=== PATIENT | female | born 1950 | race Caucasian/White ===

== ENCOUNTER → 2018-01-10 10:10 | Outpatient (CLI) | payer MEDICARE, SELFPAY ==
--- NOTE | 2018-01-10 10:17 | BI_ITS ---
MAMMOGRAPHY - BILATERAL SCREENING REASON FOR EXAM: Female, 67 years old. Routine annual screening examination. PERTINENT HISTORY: Non-contributory. TECHNIQUE: Digital bilateral breast vicky (3D mammographic acquisition) in the CC and MLO projections. 2-D mediolateral oblique (MLO) and craniocaudad (CC) views of both breasts were obtained. CAD: Full Field Digital Mammography with Computer Added Detection was performed. COMPARISON: Comparison is made with prior study dated January 03, 2017 and January 03, 2016. FINDINGS: Breast Composition: The breasts are almost entirely fatty. There are no dominant masses or suspicious calcifications. Stable small bilateral axillary lymph nodes. No other significant abnormalities are identified. There has been no significant change since the prior study. BI/SCREENING MAMM (CAD), BILAT IMPRESSION: Stable bilateral screening mammogram. Yearly follow-up mammogram recommended. (A) ASSESSMENT CATEGORY: BIRADS Category 2: Benign. A letter regarding these results will be sent to the patient by the facility within 30 days. Approximately 10% of breast cancers are not detected by mammography. A normal mammogram should not delay biopsy of a clinically suspicious abnormality. [id number] Electronically Signed: Pedro Luis Cuadra MD at 13:31 EST Tel [phone], Service support ,
--- NOTE | 2018-01-10 10:27 | BD_ITS ---
STUDY: DUAL ENERGY X-RAY ABSORPTIOMETRY / DXA REASON FOR EXAM: Female, 67 years old. Early menopause. Loss of height. TECHNIQUE: Bone Mineral Density (BMD) measurements of lumbar spine and bilateral hips were obtained. COMPARISON: None. FINDINGS: Lumbar Spine (L1-L4): g/cm2 (1.031) / T-score (-1.1) / Z-score (0.5) Findings are suggestive of osteopenia with a low fracture risk. Left Femur Total: g/cm2 (0.847) / T-score (-1.3) / Z-score (0.1) Left Femoral Neck: g/cm2 (0.852) / T-score (-1.3) / Z-score (0.3) Right Femur Total: g/cm2 (0.823) / T-score (-1.5) / Z-score (-0.1) Right Femoral Neck: g/cm2 (0.850) / T-score (-1.4) / Z-score (0.3) BD/Dexa Bone Density Study IMPRESSION: The patient is considered osteopenic as outlined below according to World Abhilash Organization (WHO) criteria with a moderate fracture risk. Reference Information: The T-score is the number of standard deviations above or below the standard which is normal for young adults at their peak bone mineral density. The World Health Organization (WHO) interprets the T-scores as follows: Above -1 Normal bone density Between -1 and -2.5 Osteopenia Equal to / or below -2.5 Osteoporosis As a practical clinical guideline, osteopenia may be graded as follows: Mild -1 through -1.5 Moderate -1.6 through -2.0 Severe -2.1 through -2.4 The Z-score is the number of standard deviations above or below age-matched controls. A Z-score of less than -1.5 would be considered abnormal. References: 1. NIH Osteoporosis and Related Bone Diseases http://www.osteo.org 2. International Society for Clinical Densitometry http://www.iscd.org 3. National Osteoporosis Foundation http://www.nof.org Electronically Signed: Pedro Luis Cuadra MD at 9:07 EST Tel [phone], Service support ,
== END ==
PROVIDERS: Visit Provider Obstetrics & Gynecology
DX: Z12.31 Encounter for screening mammogram for malignant neoplasm of breast (principal); M81.0 Age-related osteoporosis without current pathological fracture
CPT/HCPCS: 77063; 77067; 77080

== ENCOUNTER 2018-02-20 20:18 | Emergency (ER) | payer MEDICARE, SELFPAY ==
[2018-02-20 20:20] VITALS: BP 157/85; PULSE 96; RESP 16; TEMP 36.6; O2SAT 98; BMI 29.1
--- NOTE | 2018-02-20 20:39 | RAD_ITS ---
STUDY: X-RAY - LEFT KNEE REASON FOR EXAM: Female, 67 years old. Trauma TECHNIQUE: 4 view(s) of the knee. COMPARISON: None. FINDINGS: There are status post hemiarthroplasty changes of the medial knee compartment. There is no evidence of implant loosening or new associated fracture or dislocation. The lateral and patellofemoral compartments appear within normal limits. There is chondrocalcinosis of the lateral meniscal cartilage. RAD/Knee 4 or More Views IMPRESSION: Status post hemiarthroplasty changes of the medial knee compartment. There is no evidence of implant loosening or new associated fracture or dislocation. There is chondrocalcinosis of the lateral meniscal cartilage. Electronically Signed: Efe Calderon MD at 20:50 EST , Service support ,
[2018-02-20 21:19] VITALS: BP 137/79; PULSE 75; RESP 16; O2SAT 98
[2018-02-20] MEDS: Diphth,Pertuss(Acell),Tet Vac 0.5 ML Vial IM (21:20)
[2018-02-20] MEDS: Lidocaine/Epi/Tetracaine 50 ML 1 APPLIC TOPICAL (21:22)
--- NOTE | 2018-02-20 21:29 | RAD_ITS ---
STUDY: X-RAY - LEFT WRIST REASON FOR EXAM: Female, 67 years old. Trauma TECHNIQUE: 3 view(s) of the wrist were obtained. COMPARISON: None. FINDINGS: Normal visualized distal radius and ulna. Normal radiocarpal articulation. Normal distal radioulnar articulation. Normal carpal bones. Normal carpal articulations. There is degenerative arthrosis of the carpometacarpal articulation of the thumb. Normal second through fifth carpometacarpal articulations. Normal visualized metacarpal bones. The soft tissue structures are unremarkable. RAD/Wrist min 3 Views IMPRESSION: Degenerative changes of the first metacarpal greater multangular joint. There is no evidence of fracture or dislocation. Electronically Signed: Efe Calderon MD at 22:03 EST , Service support ,
--- NOTE | 2018-02-20 21:35 | RAD_ITS ---
STUDY: X-RAY - LEFT HAND REASON FOR EXAM: Female, 67 years old. Trauma TECHNIQUE: 3 view(s) of the hand. COMPARISON: None. FINDINGS: Normal radiocarpal articulation. Normal distal radioulnar joint. Normal visualized carpal bones. Normal carpal articulations There is degenerative arthrosis of the carpometacarpal (CMC) articulation of the thumb. Normal second through fifth carpometacarpal joints. Normal metacarpi. Normal metacarpophalangeal joint of the thumb. Normal interphalangeal joint of the thumb. Normal proximal and distal phalanges of the thumb. Normal metacarpophalangeal joints of the second through fifth fingers. Normal proximal and distal interphalangeal joints of the second through fifth fingers. Normal phalanges of the second through fifth fingers. There is soft tissue swelling over the fifth metacarpophalangeal joint. RAD/Hand Min 3 Views IMPRESSION: There is no evidence of fracture or dislocation. There are degenerative changes of the first metacarpal greater multangular joint. There is soft tissue swelling over the fifth metacarpophalangeal joint. Electronically Signed: Efe Calderon MD at 22:02 EST , Service support ,
--- NOTE | 2018-02-20 23:26 | ED.DEP ---
ED Disposition - Plan for ED Patient: Chief Complaint: Fall Instructions: ED Mechanical Fall, ED Laceration All Referrals: Miguel Lawton MD [Primary Care Provider] -
--- NOTE | 2018-02-20 23:30 | ED.DCSUM_ITS ---
- ER Visit Summary Date of Service: 02/20/18 Chief Complaint: Fall History of Present Illness: The patient is a 67 F presenting after fall. Patient states she rolled her left ankle and fell directly on her left knee. She then hit her chin. She complains of left hand, left knee pain and chin laceration. She is not on blood thinners. She had no loss of consciousness. She was able to ambulate after the fall. She denies other complaints. Last tetanus is unknown. Physical Examination: Vitals are stable. Patient is afebrile. Alert no acute distress. HEENT exam 1.5 cm chin laceration Neck is nontender Lungs are clear and equal bilaterally. Heart is regular rate and rhythm. Abdomen is soft nontender nondistended. Extremities left hand ecchymosis, left anterior knee tenderness. Active full range of motion. Skin is warm and dry. No focal neurologic deficit. Remainder of exam is unremarkable. Emergency Department Course and Treatment: Patient given tetanus IM. X-ray of left hand and wrist show no evidence of fracture or dislocation. Left knee x- ray shows status post hemiarthroplasty changes of the medial knee compartment. There is no evidence of implant loosening or new associated fracture or dislocation. Laceration was repaired under sterile conditions. Irrigated with saline. Anesthetized with lidocaine. 3, 5-0 simple sutures were placed. Patient tolerated this well. She was given [place] x1 for pain. She is advised to follow up with her primary care physician. Advised return to ED for worsening symptoms. Disposition: Discharge home Impression: Status post mechanical fall; left knee and hand contusion; chin laceration; laceration repair This note was generated with [employer] dictation software. It may contain incorrect words, spelling, and punctuation that were not noted in review of the chart prior to signing ED Disposition - Plan for ED Patient: Chief Complaint: Fall Instructions: ED Mechanical Fall, ED Laceration All Referrals: Miguel Lawton MD [Primary Care Provider] -
[2018-02-20] MEDS: HYDROcodone Bitartrate/Apap 5/325 Tablet PO (23:43)
== END 2018-02-20 23:46 | disposition home or self-care (01) ==
LOC: ED 21:18
PROVIDERS: Emergency Provider Emergency Medicine
DX: S01.81XA Laceration without foreign body of other part of head, initial encounter (principal); S69.92XA Unspecified injury of left wrist, hand and finger(s), initial encounter; S60.222A Contusion of left hand, initial encounter; W01.0XXA Fall on same level from slipping, tripping and stumbling without subsequent striking against object, initial encounter; I10 Essential (primary) hypertension
CPT/HCPCS: 12011; 73110; 73130; 73564; 90471; 90715; 99283

== ENCOUNTER → 2018-11-22 14:09 | Outpatient (CLI) | payer MEDICARE, SELFPAY ==
[2018-11-22 15:25] LABS: Absolute Lymphocyte Count 1.77 X10^3/uL (0.83-4.51); Absolute Neutrophil Count 4.5 X10^3/uL (2.0-7.7); Basophil# 0.08 X10^3/uL; Basophil% 1.1 % (0-1); Eosinophil# 0.27 X10^3/uL; Eosinophils% 3.7 % (0-5); Hematocrit 37.6 % (37-47); Hemoglobin 12.3 g/dL (12.0-15.0); Lymphocyte # 1.77 X10^3/ul (4.0); Lymphocyte % 24.1 % (19-41); Mean Corp Hgb Conc 32.7 g/dL (32-36); Mean Corpuscular Hgb 32.3 pg (27.0-32.0); Mean Corpuscular Volume 98.7 fL (81-99); Mean Platelet Vol. 10.2 fl (6.2-12.0); Monocyte# 0.71 X10^3/uL; Monocyte% 9.7 % (0-10); NRBC Flagged by Analyzer 0 % (0-5); Neutrophil % 61.1 % (47-70); Platelet Count 296 K/mm3 (150-450); RBC Distribution Width CV 13.2 % (11.6-14.6); RBC Distribution Width SD 47.9 fl (35.1-43.9); Red Blood Count 3.81 M/mm3 (4.2-5.4); White Blood Count 7.4 K/mm3 (4.4-11.0)
[2018-11-22 15:56] LABS: AST(SGOT) 23 U/L (15-37); Alanine Aminotransfer ALT/SGPT 23 U/L (13-56); Albumin, Serum 3.4 g/dL (3.2-5.0); Alkaline Phosphatase 47 U/L (45-117); Anion Gap 9 (5-15); BUN 16 mg/dL (7-18); Calcium,Total 8.4 mg/dL (8.5-10.1); Chloride 97 mmol/L (98-107); Creatinine, Serum 0.73 mg/dL (0.55-1.02); EST Glomerular Filtration Rate 85 mL/min (>60); Est Glom Filt Rate - Afr Amer 102 mL/min (>60); Globulin 3.4 g/dL (2.2-4.2); Glucose 85 mg/dL (74-106); Potassium 4.2 mmol/L (3.5-5.1); Protein, Total 6.8 g/dL (6.4-8.2); Sodium Level 134 mmol/L (136-145)
== END ==
PROVIDERS: Visit Provider Family Medicine
DX: Z01.818 Encounter for other preprocedural examination (principal)
CPT/HCPCS: 36415; 80053; 85025

== ENCOUNTER 2018-12-06 07:29 | Day surgery (SDC) | payer MEDICARE, SELFPAY ==
[2018-12-06 07:49] VITALS: BP 136/83; PULSE 83; RESP 14; TEMP 36.6; O2SAT 96; BMI 27.3
[2018-12-06] MEDS: Lactated Ringers 1,000 ML 100 ML IV (08:19)
--- NOTE | 2018-12-06 09:00 | RAD_ITS ---
STUDY: X-RAY - LEFT FOOT CLINICAL: Female, 68 years old. 1ST METATARSAL PHALANGEAL JOINT CHIELECTOMY, ARTHROPLASTY TECHNIQUE: 2 view(s) of the foot. COMPARISON: None. FINDINGS: 6 intraoperative images are presented. Postoperative changes are demonstrated involving the distal aspect of the first metatarsal. RAD/Foot 2 Views IMPRESSION: As above. Electronically Signed: Darrell Oconnor MD at 21:50 EDT Tel , Service support ,
--- NOTE | 2018-12-06 09:14 | DCINST_ITS ---
Discharge Diet: Light diet - advance as tolerated Discharge Activity: Use Walker Weight Bearing Status: No weight bearing - No weightbearing left foot Keep extremity elevated above heart level: Left Leg - Keep left foot elevated using pillows for at least 50 minutes of every hour Call your doctor if your incision/area has: Continuous Slow Oozing, Sudden Increased Bleeding, Foul Smelling Discharge Call your doctor if you observe: Fever of 101 or Higher, Shortness of breath, Chest pain, Increased palpitations (irregular heartbeat), Calf discomfort, Uncontrolled pain Cleanse incision/area with: Do not get Incision Wet, Keep Dressing Clean & Dry Allergies/Adverse Reactions: Allergies Sulfa (Sulfonamide Antibiotics) Allergy (Verified 12/02/18 12:18) Rash Medications to take at Discharge Alendronate Sodium [Fosamax] 70 mg PO QWEEK 02/20/18 Hydrochlorothiazide 37.5 mg PO DAILY PRN 02/20/18 Duloxetine Hcl [Cymbalta] 60 mg PO DAILY 12/02/18 Losartan Potassium [Cozaar] 25 mg PO DAILY 12/02/18 Hydrocodone/Acetaminophen [Mitchell 5-325 Tablet] 1 - 2 ea PO Q6H 3 Days #25 tab 12/06/18 The following prescriptions were given: Hydrocodone/Acetaminophen [Mitchell 5-325 Tablet] 1 - 2 ea PO Q6H 3 Days #25 tab Prescription Printed Primary Care Physician: Miguel Lawton MD [Primary Care Provider] - Test Results: Test results from this visit will be discussed in further detail at your follow- up appointment, if applicable. Please Follow Up With: Valreiy Gill DPM When: within 1 week, sooner if needed
[2018-12-06] MEDS: Cefazolin 2 GM in 0.9% Normal Saline 100 ML IV (09:15)
[2018-12-06] MEDS: Bupivacaine Mpf 0.5% 30 ML VIAL (09:30)
--- NOTE | 2018-12-06 10:09 | BON_PTH ---
PATIENT: MACK MAYA LOC: [facility] [place] U#:[id number] AGE/SX: 68/F ROOM: RE12/06/[address]: Dr. Valeriy Gill DPM : 1950 BED: DIS: 12/06/2018 SPEC #: [id number] RECD: 12/06/18 10:15 STATUS: ROSIE REQ #: [id number] SHERRY: 12/06/18 10:[address]: Valeriy Gill DEPT: SURGICAL PATHOLOGY RECD BY: Juan Luther ENTERED: 12/06/18 10:55 SP TYPE: Bone OTHR DR: Dr. Miguel Lawton MD Tissues: A - Bone of foot, NOS B - Bone of foot, NOS Procedures: Decalcification bone/plaque Special Stain Group II Surgery Specimen Level IV Imprint (control) HEADER OPERATION: First metatarsophalangeal joint cheilotomy, arthroplasty PRE-OP DIAGNOSIS: Osteoarthritis TISSUE SUBMITTED: A - First metatarsal joint (sent fresh), B - First metatarsal joint MICROSCOPIC DIAGNOSIS A. First metatarsal joint tissue, biopsy: Consistent with gouty tophus. See comment. B. First metatarsal joint, excision: Fragments of trabecular bone and cartilage with reparative and degenerative change. AM:samuel 12/11/18 COMMENT The specimen is evaluated at the time of touch imprints by Dr. Ceja. Immediate Evaluation = Gout crystals present. MICROSCOPIC DESCRIPTION Slides are reviewed. GROSS DESCRIPTION A - Received is one container labeled with the patient's name and designated right metatarsal joint, crystals for gout. The specimen consists of multiple irregular fragments of chalky-white material that in aggregate measure 0.2 x 0.2 x 0.1 cm. Two touch imprints are prepared and examined by Dr. Ceja. The entire specimen is submitted in one cassette. B - Received in fixative is one container labeled with the patient's name and designated first metatarsal joint. The specimen consists of multiple irregular fragments of bone that in aggregate measure 4.5 x 3 x 0.5 cm. The entire specimen is submitted in two cassettes after decalcification. / KIMBERLY:samuel 12/06/18 TC:5 CPT: 87767 x2, 84455, 11546
--- NOTE | 2018-12-06 10:27 | RAD_ITS ---
STUDY: X-RAY - LEFT FOOT CLINICAL: First metatarsophalangeal cheilectomy/arthroplasty. TECHNIQUE: 6 intraoperative images of the foot. COMPARISON: None. FINDINGS: Status post first metatarsophalangeal cheilectomy/arthroplasty without evidence of complication. Electronically Signed: Castro Grider MD at 14:47 EDT Tel , Service support , RAD/Foot min 3 Views
--- NOTE | 2018-12-06 10:28 | PCM.OPRPT ---
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 Letitia Madison Type of Anesthesia:: General Specimen's removed: Bone from left 1st metatarsal phalangeal joint sent to pathology. Tissue from left 1st metatarsal phalangeal joint sent for crystal analysis Description of Procedure: Indications: This is a 68 year old female with painful left 1st metatarsal phalagneal joint (MTPJ) due to osteoarthritis w/ hallux limitus/ridigus. Patient has pain and significantly limited range of motion. Osteoarthritis was seen on xrays of the foot. She also has history of gout to the joint. This has been treated with extensive conservative/nonsurgical management, but symptoms persists and she continues to have pain and symptoms. She elected to undergo surgery. We discussed the procedure options, and we are planning to proceed with 1st MTPJ cheilectomy arthroplasty. We reviewed the rationale of this as well as the possible benefits, risks, potential complications goals and expectations of each. This was discussed with her in great detail. Typical post op recovery was reviewed with her. She expressed understanding and agreement. The consent forms were reviewed with her in detail, and she freely signed them. No guarantees were given nor implied. All of her questions were answered. Patient was medically cleared. Operative Procedure: The patient was brought back into the operating room and was placed on the operating room table in the supine position. She was carefully secured to the operating room table with a safety belt around her waist. A time out was performed and the patient was properly identified and the surgical plan was confirmed. The patient received 2 grams of IV Ancef for antibiotic prophylaxis. A well padded pneumatic tourniquet was applied around the left ankle. The patient did receive general anesthesia per the anesthesiologist. The skin was cleansed with 70% Isopropyl alcohol, and 20mL of 0.5% Bupivacaine plain was given as a 1st ray block on the left foot. The left foot was scrubbed, prepped, draped in the usual aseptic fashion. A timeout was performed and the patient was properly identified and the surgical plan was confirmed. The left foot was elevated for 3 minutes and the left ankle pneumatic tourniquet was inflated to 250mmHg. Attention was directed to the left 1st MTPJ. There as noted to be significant limited range of motion present, with grinding and dorsal jamming consistent with significant hallux rigidus and osteoarthritis. There was crepitus on range of motion to the joint consistent with osteoarthritis hallux limitus/rigidus. A linear longitudinal skin incision was made overlying the dorsal medial 1st MTPJ, medial to the Extensor Hallucis Longus tendon using a 15 scalpel blade. Careful dissection was completed down through the subcutaneous tissue layer, down to the 1st MTPJ capsule, which was incised with a 15 scalpel blade. The 1st MTPJ capsule was partially reflected exposing the dorsal, lateral, and medial aspect of the 1st metatarsal head and base of the hallux proximal phalanx. There were osteophytes around the dorsal 1st metatarsal head as well as the dorsal aspect of the base of the hallux proximal phalanx. The was a dorsal and medial eminence present to the 1st metatarsal head. The cartilage on the dorsal one third to one half of the 1st metatarsal head was severely worn away and unhealthy. There was a large osteochondral lesion to the dorsal central 1st metatarsal head, there was noted to be diffuse global thinning and wearing away of cartilage present. There were significant adhesions of the sesamoid apparatus. The adhesions of the sesamoid apparatus were freed up using a McGlamry elevator. Using a powered sagittal saw the dorsal and medial eminences, as well as the dorsal one third to one half 1st metatarsal head was resected - the osteochondral defect was resected in this process. The dorsal aspect of the base of the hallux proximal phalanx was resected with the powered sagittal saw. This was sent to pathology for further evaluation. All osteophytes were resected from the 1st metatarsal head and from the base of the hallux proximal phalanx using a bone cutting rongeur - these were sent to pathology with the specimen. Proper resection was confirmed using intra operative fluoroscopy, without the use of a satellite tv technician. There was noted to be gouty crystals in the joint as well which were debrided out, and sent to pathology. At this time the 1st MTPJ was put through range of motion and it was gliding normally and smoothly, with no impingement or crepitus present, there was 90 degrees of 1st metatarsal phalangeal joint dorsiflexion, confirmed with fluoroscopy. There was no popping or catching present with range of motion. The site was flushed out with copious amounts of normal saline solution. The joint capsule was reapproximated in neutral position using 4-0 Vicryl, the subcutaneous tissue layer was reapproximated using 4-0 Vicryl, the skin was reapproximated using 4-0 Monocryl. Cavilon was painted to the sutured skin edges and steristrips were applied across the sutured skin incision. All vital structure, including all vital neurovascular structures were properly identified and protected as necessary throughout the procedure. The pneumatic tourniquet was deflated (total tourniquet time was 42 minutes), there was immediate return of vascular flow to the foot and all toes. CFT < 2 seconds to all toes, and had normal temperature gradient present with no evidence of ischemia. Hemostasis was achieved. A dressing was applied which consisted of Betadine soaked adaptic, 4x4 gauze, Kerlix and vinita dressing to the left foot. The patient tolerated the above operative procedure well at the anesthesia well with no complications. The patient was transported to the recovery room with vital signs stable and in good condition. Post operative orders were placed. Post operative instructions were reviewed with patient today, as well as with her and son who weere with her. No weightbearing left foot, keep left foot elevated for at least 50 minutes of every hour, keep dressing clean, dry and intact to foot. Prescription for [place] was prescribed: 1-2 tabs PO q 6 hours PRN pain for pain control She was dispensed a surgical shoe. Post operative xrays were obtained in the recovery room which confirmed 1st MTPJ cheilectomy arthroplasty. No post operative complications and otherwise no acute changes and stable xrays. Grafts/Implants Used: None - Complications None
[2018-12-06 10:30] VITALS: BP 136/83; BP 164/96; PULSE 97; RESP 16; TEMP 37.3; O2SAT 96
[2018-12-06 10:44] VITALS: BP 136/83; BP 153/92; PULSE 86; RESP 16; O2SAT 95
[2018-12-06 11:00] VITALS: BP 136/83; BP 149/87; PULSE 88; RESP 16; TEMP 37; O2SAT 95
[2018-12-06 11:29] VITALS: BP 136/83
[2018-12-06 11:41] LABS: Uric Acid 3.8 mg/dL (2.6-6.0)
== END 2018-12-06 12:10 | disposition home or self-care (01) ==
LOC: SDC 07:30 → AC 07:32
PROVIDERS: Referring Provider Podiatrist; Visit Provider Podiatrist
PROC: (CPT 28289; principal; 2018-12-06 08:45)
DX: M19.072 Primary osteoarthritis, left ankle and foot (principal); M20.22 Hallux rigidus, left foot; M10.9 Gout, unspecified; I10 Essential (primary) hypertension; F41.1 Generalized anxiety disorder; Z78.0 Asymptomatic menopausal state; Z86.718 Personal history of other venous thrombosis and embolism; Z87.891 Personal history of nicotine dependence; Z79.899 Other long term (current) drug therapy
CPT/HCPCS: 28289; 36415; 73620; 73630; 76000; 84550; 88304; 88305; 88311; 88313; J7120; J2405

== ENCOUNTER → 2019-01-28 15:16 | Outpatient (CLI) | payer MEDICARE, SELFPAY ==
--- NOTE | 2019-01-28 15:20 | BI_ITS ---
MAMMOGRAPHY - BILATERAL SCREENING 3-D TOMOSYNTHESIS REASON FOR EXAM: Female, 68 years old. PERTINENT HISTORY: No significant family history. TECHNIQUE: 2-D mammograms and 3-D Tomosynthesis of the breast (s) were performed. CAD was performed. COMPARISON: January 10, 2018 FINDINGS: The breast composition is fatty No suspicious microcalcifications. No dense spiculated masses or suspicious microcalcifications are identified. No architectural distortion is identified. There is no skin thickening or retraction. There has been no significant change since the prior study January 10, 2018. BI/SCREEN MAMM (CAD) W/MARIBEL BILAT IMPRESSION: No mammographic signs of malignancy. Routine yearly mammograms recommended. ASSESSMENT CATEGORY: BIRADS Category 1: Negative. A letter regarding these results will be sent to the patient by the facility within 30 days. FOLLOW UP RECOMMENDATION: Yearly follow up mammogram recommended. (A) Approximately 10% of breast cancers are not detected by mammography. A normal mammogram should not delay biopsy of a clinically suspicious abnormality. Electronically Signed: Bahman Stoddard, at 12:56 EST Tel , Service support ,
--- NOTE | 2019-01-28 15:22 | BD_ITS ---
STUDY: DUAL ENERGY X-RAY ABSORPTIOMETRY / DXA REASON FOR EXAM: Female, 68 years old. Early menopause. Loss of height. TECHNIQUE: Bone Mineral Density (BMD) measurements of lumbar spine and bilateral hips were obtained. COMPARISON: Comparison is made with prior study dated January 10, 2018. FINDINGS: Lumbar Spine (L1-L4): g/cm2 (1.025) / T-score (-1.2) / Z-score (0.5) Findings are suggestive of osteopenia with a low fracture risk. Left Femur Total: g/cm2 (0.823) / T-score (-1.5) / Z-score (0.0) Left Femoral Neck: g/cm2 (0.825) / T-score (-1.5) / Z-score (0.1) Right Femur Total: g/cm2 (0.816) / T-score (-1.5) / Z-score (-0.1) Right Femoral Neck: g/cm2 (0.841) / T-score (-1.4) / Z-score (0.2) The T-Scores on the most recent prior examination were: Lumbar Spine (L1-L4): There has been worsening of bone density since the previous examination. Left Femur Total: which represents a worsening of 2.8%. Right Femur Total: which represents a worsening of 0.9%. BD/Dexa Bone Density Study IMPRESSION: The patient is considered osteopenic as outlined below according to World Abhilash Organization (WHO) criteria with a low fracture risk. There has been worsening of bone density since the previous examination. Reference Information: The T-score is the number of standard deviations above or below the standard which is normal for young adults at their peak bone mineral density. The World Health Organization (WHO) interprets the T-scores as follows: Above -1 Normal bone density Between -1 and -2.5 Osteopenia Equal to / or below -2.5 Osteoporosis As a practical clinical guideline, osteopenia may be graded as follows: Mild -1 through -1.5 Moderate -1.6 through -2.0 Severe -2.1 through -2.4 The Z-score is the number of standard deviations above or below age-matched controls. A Z-score of less than -1.5 would be considered abnormal. References: 1. NIH Osteoporosis and Related Bone Diseases http://www.osteo.org 2. International Society for Clinical Densitometry http://www.iscd.org 3. National Osteoporosis Foundation http://www.nof.org Electronically Signed: Pedro Luis Cuadra, at 15:38 EST , Service support ,
== END ==
DX: Z12.31 Encounter for screening mammogram for malignant neoplasm of breast (principal); M81.0 Age-related osteoporosis without current pathological fracture
CPT/HCPCS: 77063; 77067; 77080

== ENCOUNTER → 2019-02-28 15:28 | Outpatient (CLI) | payer MEDICARE, SELFPAY ==
--- NOTE | 2019-02-28 16:00 | MRI_ITS ---
STUDY: MRI LEFT MIDFOOT/HINDFOOT REASON FOR EXAM: Female, 68 years old. Stress fracture. Great toe surgery weeks ago. Gout. Arthritis. Swelling. TECHNIQUE: Standardized fat and water weighted pulse sequences were obtained in all 3 orthogonal planes. COMPARISON: 12/06/2018. FINDINGS: Extensive bone marrow edema/contusion at the first metatarsal head and first proximal phalange base. Small/moderate volume first metatarsal-phalangeal joint effusion. Mild capsular thickening at the first metatarsophalangeal joint. Soft tissue swelling at the first digit. Surgical scar at the first digit. Moderate first metatarsophalangeal joint arthrosis. No discrete bone marrow placement. No acute fracture line. No acute dislocation. Normal calcaneocuboid joint. Normal talonavicular joint. Normal navicular cuneiform joints. Mild/moderate tarsometatarsal joint arthrosis. Normal second through fifth metatarsophalangeal joints. 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 Normal flexor and extensor tendons. Mild muscle atrophy of the midfoot/forefoot. Diffuse dorsal soft tissue swelling. Tiny cyst/distended bursa between the third and fourth metatarsals (axial image 18 series 8). Normal Lisfranc ligament (coronal image 13 series 6). MRI/Lower Ext Joint Only (Routine) IMPRESSION: No acute stress fracture First metatarsal head and first proximal phalanx base bone marrow edema/contusion without marrow replacement Small/moderate volume first metatarsal-phalangeal joint effusion with soft tissue swelling (exclude infection clinically) First metatarsophalangeal joint capsular thickening Mild midfoot/forefoot muscle atrophy Mild/moderate osteoarthritic features predominating at the first MTP joint Electronically Signed: Cory Cohen DO at 10:04 EST Tel , Service support ,
== END ==
PROVIDERS: Referring Provider Podiatrist; Visit Provider Podiatrist
DX: M84.375A Stress fracture, left foot, initial encounter for fracture (principal)
CPT/HCPCS: 73721

== ENCOUNTER → 2020-01-30 11:42 | Outpatient (CLI) | payer MEDICARE, SELFPAY ==
[2020-01-21 07:38] VITALS: BMI 28.3
--- NOTE | 2020-01-30 11:50 | BI_ITS ---
MAMMOGRAPHY - BILATERAL SCREENING REASON FOR EXAM: Female, 69 years old. Routine annual screening examination. PERTINENT HISTORY: Screening TECHNIQUE: Digital bilateral breast maribel (3D mammographic acquisition) in the CC and MLO projections. 2-D mediolateral oblique (MLO) and craniocaudad (CC) views of both breasts were obtained. CAD: Full Field Digital Mammography with Computer Added Detection was performed. COMPARISON: Previous mammogram obtained on 01/28/2019 FINDINGS: Breast Composition: Fatty There are no dominant masses or suspicious calcifications. No other significant abnormalities are identified. BI/SCREEN MAMM (CAD) W/MARIBEL BILAT IMPRESSION: Stable bilateral screening mammogram. Yearly follow-up mammogram recommended. (A) ASSESSMENT CATEGORY: BIRADS Category 1: Negative. A letter regarding these results will be sent to the patient by the facility within 30 days. Approximately 10% of breast cancers are not detected by mammography. A normal mammogram should not delay biopsy of a clinically suspicious abnormality. [id number] Electronically Signed: Luis Alfredo Polo, at 17:07 EST Tel , Service support ,
== END ==
PROVIDERS: Referring Provider Student in an Organized Health Care Education/Training Program; Visit Provider Student in an Organized Health Care Education/Training Program
DX: Z12.31 Encounter for screening mammogram for malignant neoplasm of breast (principal)
CPT/HCPCS: 77063; 77067

== ENCOUNTER → 2020-02-04 06:41 | Outpatient (CLI) | payer MEDICARE, SELFPAY ==
[2020-01-21 07:38] VITALS: BMI 28.3
--- NOTE | 2020-02-04 06:47 | ECHOD_ITS ---
Reason For Study: HTN Procedure This was a 2D Doppler, Color Flow transthoracic echocardiogram. Exam performed in department. Left Ventricle Normal LV size. Left ventricular systolic function is normal. The estimated ejection fraction is 60 %. Stage 1 diastolic dysfunction. No regional wall motion abnormalities noted. Right Ventricle Normal RV size. Normal systolic function. Atria Normal left atrium. Normal right atrium. Mitral Valve Normal mitral valve. Mild (1+) eccentric mitral valve insufficiency. Tricuspid Valve Normal tricuspid valve. Mild tricuspid valve insufficiency. Pulmonary artery systolic pressure is 28 mmHg. Aortic Valve Trisinus/trileaflet aortic valve. Mild (1+) aortic valve insufficiency. Pulmonic Valve Normal pulmonic valve. Trivial pulmonic valve insufficiency. Great Vessels Normal aortic root. The pulmonary artery is normal size. Normal inferior vena cava. Pericardium/Pleural No pericardial effusion. MMode/2D Measurements & Calculations LVIDd: 4.3 cm IVSd: 0.95 cm Ao root diam: 3.4 cm LVIDs: 2.9 cm LVPWd: 0.90 cm RVDd: 2.8 cm FS: 32.8 % LAV(MOD-bp): 41.1 ml EDV(MOD-sp4): 51.2 ml EDV(MOD-sp2): 55.1 ml LAV(MOD-bp) Indexed: 23.4 ml/m2 ESV(MOD-sp4): 24.4 ml EF(MOD-sp2): 58.6 % LAV(MOD-sp2): 42.9 ml EF(MOD-sp4): 52.3 % LAV(MOD-sp4): 39.9 ml SV(MOD-sp4): 26.8 ml SV(MOD-sp2): 32.3 ml LA A4 area: 15.9 cm2 LA dimension(2D): 3.6 cm RA A4 area: 13.4 cm2 Doppler Measurements & Calculations MV E max lizandro: 66.9 cm/sec Lat Peak E' Lizandro: 9.1 cm/sec Med Peak E' Lizandro: 8.9 cm/sec MV A max lizandro: 87.3 cm/sec E/E' lat: 7.3 E/E' med: 7.6 MV E/A: 0.77 Ao V2 max: 166.7 cm/sec AI max lizandro: 466.5 cm/sec LV V1 max: 101.8 cm/sec Ao max P.1 mmHg AI max P.1 mmHg LV V1 max P.1 mmHg AI dec slope: 275.6 cm/sec2 AI P1/2t: 495.7 msec PA V2 max: 100.9 cm/sec TR max lizandro: 247.5 cm/sec TR max P.6 mmHg Interpretation Summary Normal LV size. Left ventricular systolic function is normal. The estimated ejection fraction is 60 %. Mild (1+) aortic valve insufficiency. Stage 1 diastolic dysfunction. Ordering Physician: Que Mccrary Referring Physician: Miguel Lawton Performed By: Rebecca Epstein RDCS
--- NOTE | 2020-02-04 18:15 | STRESSREP ---
Stress Test Report Pharmacologic myocardial perfusion stress test. 69-year-old lady with a history of preoperative evaluation for hip surgery. Stress protocol: Resting EKG demonstrates normal sinus rhythm with a rate of 70 bpm normal intervals are noted resting blood pressure is 1 and 30/70 2 mmHg. 0.4 mg of regadenoson was infused per usual protocol followed by rapid intravenous saline flush injection continuous EKG monitoring was performed. The patient remained in sinus rhythm throughout the recording. At rest there were no ST or T wave changes noted suggest ischemia. During infusion T wave inversions were noted in the lateral leads. The maximum heart rate was 112 bpm which was 74% of maximum predicted heart rate the maximum workload was 1 metabolic equivalent. The resting blood pressure 130/72 with a final blood pressure of the same. Myocardial perfusion protocol. 11.3 mCi of technetium 99m sestamibi was injected at rest. 0.4 mg of regadenoson was infused per usual protocol. At peak infusion 33.8 mCi of technetium 99m sestamibi was injected stress images were obtained stress and rest images were reconstructed and compared in the short axis vertical long horizontal long axis. Gated images were also obtained Perfusion SPECT analysis: Review of the stress images demonstrate normal uptake of tracer noted in all areas of the myocardium the resting images similarly demonstrate normal uptake of tracer noted in all areas of the myocardium. No areas of reversibility are noted to suggest ischemia no previous infarct is noted. Gated SPECT analysis: The gated ejection fraction is 78%. Conclusion: Normal pharmacologic myocardial perfusion stress test. Preserved ejection fraction.
== END ==
PROVIDERS: Referring Provider Internal Medicine Cardiovascular Disease; Visit Provider Internal Medicine Cardiovascular Disease
DX: Z01.810 Encounter for preprocedural cardiovascular examination (principal); I10 Essential (primary) hypertension; R94.31 Abnormal electrocardiogram [ECG] [EKG]
CPT/HCPCS: 78452; 93017; 93306; A9500; A4216; J2785

== ENCOUNTER → 2021-02-15 08:55 | Outpatient (CLI) | payer MEDICARE, SELFPAY ==
--- NOTE | 2021-02-15 09:01 | BD_ITS ---
STUDY: DUAL ENERGY X-RAY ABSORPTIOMETRY / DXA REASON FOR EXAM: Female, 70 years old. Z780. The patient is postmenopausal. TECHNIQUE: Bone Mineral Density (BMD) measurements of lumbar spine and bilateral hips were obtained. COMPARISON: Comparison is made with prior study dated 01/28/2019. FINDINGS: Lumbar Spine (L1-L4): g/cm2 (0.951) / T-score (-0.8) / Z-score (1.4) Findings are suggestive of normal bone density with a low fracture risk. Left Femur Total: g/cm2 (0.757) / T-score (-1.5) / Z-score (0.1) Left Femoral Neck: g/cm2 (0.629) / T-score (-2.0) / Z-score (-0.1) Right Femur Total: g/cm2 (0.816) / T-score (-1.0) / Z-score (0.5) Right Femoral Neck: g/cm2 (0.655) / T-score (-1.7) / Z-score (0.1) The T-Scores on the most recent prior examination were: Lumbar Spine (L1-L4): There has been worsening of bone density since the previous examination. Left Femur Total: which represents a worsening of 0.8%. Right Femur Total: which represents an improvement of 7.9%. BD/Dexa Bone Density Study IMPRESSION: The patient is considered osteopenic as outlined below according to World [employer] Organization (WHO) criteria with a moderate fracture risk. There has been worsening of bone density since the previous examination. Reference Information: The T-score is the number of standard deviations above or below the standard which is normal for young adults at their peak bone mineral density. The World Health Organization (WHO) interprets the T-scores as follows: Above -1 Normal bone density Between -1 and -2.5 Osteopenia Equal to / or below -2.5 Osteoporosis As a practical clinical guideline, osteopenia may be graded as follows: Mild -1 through -1.5 Moderate -1.6 through -2.0 Severe -2.1 through -2.4 The Z-score is the number of standard deviations above or below age-matched controls. A Z-score of less than -1.5 would be considered abnormal. References: 1. NIH Osteoporosis and Related Bone Diseases www osteo.org 2. International Society for Clinical Densitometry www iscd.org 3. National Osteoporosis Foundation www nof.org Electronically Signed: Pedro Luis Cuadra MD at 11:05 EST , Service support ,
== END ==
PROVIDERS: Visit Provider Nurse Practitioner Family
DX: Z78.0 Asymptomatic menopausal state (principal)
CPT/HCPCS: 77080

== ENCOUNTER 2021-06-01 13:03 | Outpatient (CLI) | payer MEDICARE, SELFPAY ==
--- NOTE | 2021-06-01 13:07 | BI_ITS ---
MAMMOGRAPHY - BILATERAL SCREENING REASON FOR EXAM: Female, 70 years old. Routine annual screening examination. PERTINENT HISTORY: Non-contributory. TECHNIQUE: Digital bilateral breast maribel (3D mammographic acquisition) in the CC and MLO projections. 2-D mediolateral oblique (MLO) and craniocaudad (CC) views of both breasts were obtained. CAD: Full Field Digital Mammography with Computer Added Detection was performed. COMPARISON: Comparison is made with prior study dated 01/30/2020 and 01/28/2019. FINDINGS: Breast Composition: The breasts are almost entirely fatty. There are no dominant masses or suspicious calcifications. No other significant abnormalities are identified. There has been no significant change since the prior study. BI/SCRN MAMM (CAD)W/MARIBEL BILAT IMPRESSION: Stable bilateral screening mammogram. Yearly follow-up mammogram recommended. (A) ASSESSMENT CATEGORY: BIRADS Category 1: Negative. A letter regarding these results will be sent to the patient by the facility within 30 days. Approximately 10% of breast cancers are not detected by mammography. A normal mammogram should not delay biopsy of a clinically suspicious abnormality. [id number] Electronically Signed: Pedro Luis Cuadra MD at 14:16 EDT ,
== END 2021-06-01 23:59 | disposition home or self-care (01) ==
LOC: OPBI 13:04
PROVIDERS: Visit Provider Student in an Organized Health Care Education/Training Program
DX: Z12.31 Encounter for screening mammogram for malignant neoplasm of breast (principal)
CPT/HCPCS: 77063; 77067

== ENCOUNTER → 2021-11-21 | Outpatient (CLI) | payer MEDICARE, SELFPAY ==
--- NOTE | 2021-11-21 08:34 | US_ITS ---
STUDY: ABDOMINAL ULTRASOUND - RIGHT UPPER QUADRANT REASON FOR VISIT: Female, 71 years old RUQ PAIN -- and AREA OF [place]MP TECHNIQUE: Ultrasound evaluation of the right upper quadrant was performed with real-time and static cardona-scale imaging. TECHNICAL QUALITY: Adequate. COMPARISON: None. FINDINGS: Liver: The liver measures 15.1 cm. Increase echogenicity of the liver parenchyma due to fatty infiltration. The bile ducts are within normal limits. There is hepatic color flow. The direction of portal flow is hepatopetal. There is no demonstrated mass lesion. Gallbladder: Abnormal gallbladder containing multiple gallstones. The gallbladder wall measures 2.2 mm. There is a negative sonographic Graff''s sign. There is no pericholecystic fluid. Common Bile Duct (C.B.D.): The common bile duct measures 5.9 mm. Pancreas: Normal size of the head, body and tail of the pancreas. There is normal echogenicity of the pancreas. There is no demonstrated pancreatic mass or cyst. The pancreatic duct is not dilated. Right Kidney: Normal size of the right kidney. The right kidney measures 10.0 x 5.5 x 5.2 cm. Normal renal cortex. The right cortex measures 2.1 cm. There is no demonstrated renal mass or cyst. There is no right hydronephrosis. US/Abdomen Limited IMPRESSION: 1. Multiple small gallstones but negative sonographic Graff''s sign, no GB wall thickening and no pericholecystic fluid. 2. Mild diffuse hepatic steatosis. Electronically Signed: Cyrus Dorsey MD at 10:43 EDT ,
== END | disposition home or self-care (01) ==
PROVIDERS: PCP Family Medicine; Referring Provider Family Medicine; Visit Provider Family Medicine
DX: R42 Dizziness and giddiness (principal); R10.11 Right upper quadrant pain
CPT/HCPCS: 76705

== ENCOUNTER → 2021-12-05 | Outpatient (CLI) | payer MEDICARE, SELFPAY ==
--- NOTE | 2021-12-05 09:20 | CDU_ITS ---
Reason For Study: DIZZINESS Rt. Velocities/BP Lt. Velocities/BP Prox CCA 78.7/18.2 cm/sec. Prox CCA 86.1/19.0 cm/sec. Mid CCA 84.4/23.0 cm/sec. Mid CCA 79.5/23.4 cm/sec. Dist CCA 73.0/21.1 cm/sec. Dist CCA 63.0/20.1 cm/sec. Prox ICA 66.4/17.3 cm/sec. Prox ICA 58.9/20.4 cm/sec. Mid ICA 102.5/34.4 cm/sec. Mid ICA 53.4/18.2 cm/sec. Dist ICA 105.8/35.5 cm/sec. Dist ICA 60.4/23.6 cm/sec. Rt. ICA/CCA = 1.2/1.5. Lt. ICA/CCA = 0.7/1.1. Prox ECA 82.5/10.7 cm/sec. Prox ECA 53.4/10.6 cm/sec. Rt. Vert. 41.0/13.5 cm/sec. Lt. Vert. 41.6/16.4 cm/sec. Right Extracranial There is intimal thickening but no significant atherosclerotic plaque noted in the right common carotid artery. There is intimal thickening but no significant atherosclerotic plaque noted in the right internal carotid artery. There is intimal thickening but no significant atherosclerotic plaque noted in the right external carotid artery. Antegrade flow is noted in the right vertebral artery. Left Extracranial There is intimal thickening but no significant atherosclerotic plaque noted in the left common carotid artery. There is intimal thickening but no significant atherosclerotic plaque noted in the left internal carotid artery. There is intimal thickening but no significant atherosclerotic plaque noted in the left external carotid artery. Antegrade flow is noted in the left vertebral artery. Procedure Carotid Duplex 70004. This is a Carotid Duplex examination using B-mode, color flow and specral Doppler. The exam was of good technical quality. Exam performed in department. VL/Carotid Duplex Ultrasound Interpretation Summary No significant atherosclerotic plaque or stenosis noted in the internal carotid arteries bilaterally. Flow within the vertebral arteries is antegrade bilaterally. Ordering Physician: Miguel Lowry Referring Physician: Miguel Lowry Performed By: Dionte Arrieta RVT
== END | disposition home or self-care (01) ==
PROVIDERS: PCP Family Medicine; Referring Provider Family Medicine; Visit Provider Family Medicine
DX: R42 Dizziness and giddiness (principal)
CPT/HCPCS: 93880

== ENCOUNTER → 2022-01-18 | Outpatient (CLI) | payer MEDICARE, SELFPAY ==
[2022-01-18 13:21] LABS: Absolute Lymphocyte Count 1.56 X10^3/uL (0.83-4.51); Basophil# 0.13 X10^3/uL; Basophil% 1.3 % (0-1); Eosinophil# 0.41 X10^3/uL; Eosinophils% 4.1 % (0-5); Hemoglobin 9.7 g/dL (12.0-15.0); Lymphocyte # 1.56 X10^3/ul (0.83-4.51); Lymphocyte % 15.6 % (19-41); Mean Corp Hgb Conc 33.4 g/dL (32-36); Mean Corpuscular Hgb 31.1 pg (27.0-32.0); Mean Corpuscular Volume 92.9 fL (81-99); Mean Platelet Vol. 10.3 fl (6.2-12.0); Monocyte# 0.88 X10^3/uL; Monocyte% 8.8 % (0-10); NRBC Flagged by Analyzer 0 % (0-5); Neutrophil # 6.98 X10^3/uL (2.7-7.7); Neutrophil % 69.8 % (47-70); Platelet Count 323 K/mm3 (150-450); RBC Distribution Width CV 12.9 % (11.6-14.6); Red Blood Count 3.12 M/mm3 (4.2-5.4)
[2022-01-18 13:45] LABS: AST(SGOT) 11 U/L (15-37); Alanine Aminotransfer ALT/SGPT 17 U/L (13-56); Alkaline Phosphatase 63 U/L (45-117); Anion Gap 10 (5-15); BUN 47 mg/dL (7-18); BUN/Creat Ratio 16.3 RATIO (10-20); Bilirubin, Direct 0.13 mg/dL (0.00-0.30); Calcium,Total 8.9 mg/dL (8.5-10.1); Chloride 107 mmol/L (98-107); Cholesterol 152 mg/dL (200); Creatinine, Serum 2.89 mg/dL (0.55-1.02); EST Glomerular Filtration Rate 17 mL/min (>60); Est Glom Filt Rate - Afr Amer 21 mL/min (>60); Globulin 4.5 g/dL (2.2-4.2); Glucose 84 mg/dL (74-106); High Density Lipoprotein 52 mg/dL; Potassium 2.9 mmol/L (3.5-5.1); Protein, Total 7.5 g/dL (6.4-8.2); Sodium Level 142 mmol/L (136-145); Thyroid Stim Hormone (TSH) 1.73 uIU/mL (0.358-3.74); Triglycerides 73 mg/dL; Very Low Density Lipoprotein 15 mg/dL (5-40)
== END | disposition home or self-care (01) ==
LOC: LAB 12:19
PROVIDERS: PCP Family Medicine; Referring Provider Internal Medicine Cardiovascular Disease; Visit Provider Internal Medicine Cardiovascular Disease
DX: I10 Essential (primary) hypertension (principal); R94.31 Abnormal electrocardiogram [ECG] [EKG]; Z01.810 Encounter for preprocedural cardiovascular examination
CPT/HCPCS: 36415; 80048; 80061; 80076; 84443; 85025

== ENCOUNTER → 2022-01-23 | Outpatient (CLI) | payer MEDICARE, SELFPAY ==
[2022-01-23 12:02] LABS: Anion Gap 7 (5-15); BUN 45 mg/dL (7-18); BUN/Creat Ratio 13.7 RATIO (10-20); Calcium,Total 8.6 mg/dL (8.5-10.1); Chloride 113 mmol/L (98-107); Creatinine, Serum 3.28 mg/dL (0.55-1.02); EST Glomerular Filtration Rate 15 mL/min (>60); Est Glom Filt Rate - Afr Amer 18 mL/min (>60); Glucose 110 mg/dL (74-106); Potassium 3.6 mmol/L (3.5-5.1); Sodium Level 140 mmol/L (136-145)
== END | disposition home or self-care (01) ==
LOC: LAB 11:07
PROVIDERS: PCP Family Medicine; Referring Provider Internal Medicine Cardiovascular Disease; Visit Provider Internal Medicine Cardiovascular Disease
DX: E87.6 Hypokalemia (principal); R79.89 Other specified abnormal findings of blood chemistry
CPT/HCPCS: 36415; 80048

== ENCOUNTER → 2022-01-31 | Outpatient (CLI) | payer MEDICARE, SELFPAY ==
[2022-01-31 13:39] LABS: Protein, Urine (Random) 103.7 mg/dL (<11.9); Protein:Creat Ratio 1896 mg/g CRE (0-200)
[2022-01-31 13:52] LABS: Albumin, Serum 3.1 g/dL (3.2-5.0); BUN 43 mg/dL (7-18); BUN/Creat Ratio 10.1 RATIO (10-20); Calcium,Total 8.6 mg/dL (8.5-10.1); Chloride 110 mmol/L (98-107); Creatinine, Serum 4.24 mg/dL (0.55-1.02); EST Glomerular Filtration Rate 11 mL/min (>60); Est Glom Filt Rate - Afr Amer 13 mL/min (>60); Glucose 76 mg/dL (74-106); Phosphorus 3.3 mg/dL (2.5-4.9); Potassium 2.9 mmol/L (3.5-5.1); Sodium Level 141 mmol/L (136-145)
== END | disposition home or self-care (01) ==
LOC: POLAB3 10:11
PROVIDERS: PCP Family Medicine; Visit Provider Internal Medicine Nephrology
DX: N17.9 Acute kidney failure, unspecified (principal)
CPT/HCPCS: 36415; 80069; 82570; 84156

== ENCOUNTER → 2022-02-03 | Outpatient (CLI) | payer MEDICARE, SELFPAY ==
[2022-02-03 12:02] LABS: Hematocrit 26.3 % (37-47); Hemoglobin 8.9 g/dL (12.0-15.0); Mean Corp Hgb Conc 33.8 g/dL (32-36); Mean Corpuscular Hgb 30.7 pg (27.0-32.0); Mean Corpuscular Volume 90.7 fL (81-99); Mean Platelet Vol. 8.8 fl (6.2-12.0); Platelet Count 371 K/mm3 (150-450); RBC Distribution Width CV 14.3 % (11.6-14.6); RBC Distribution Width SD 47.3 fl (35.1-43.9); White Blood Count 8.2 K/mm3 (4.4-11.0)
[2022-02-03 12:10] LABS: International Normalized Ratio 1.1; Prothrombin Time (Protime)PT. 14.2 SECONDS (11.7-14.9)
[2022-02-03 12:24] LABS: Albumin, Serum 3.1 g/dL (3.2-5.0); BUN 42 mg/dL (7-18); BUN/Creat Ratio 9.6 RATIO (10-20); Calcium,Total 8.6 mg/dL (8.5-10.1); Chloride 112 mmol/L (98-107); Creatinine, Serum 4.38 mg/dL (0.55-1.02); EST Glomerular Filtration Rate 11 mL/min (>60); Est Glom Filt Rate - Afr Amer 13 mL/min (>60); Glucose 106 mg/dL (74-106); Phosphorus 3.3 mg/dL (2.5-4.9); Potassium 2.8 mmol/L (3.5-5.1); Sodium Level 140 mmol/L (136-145)
[2022-02-06 20:41] LABS: ANTINUCLEAR ANTIBODIES DIRECT Negative (Negative)
== END | disposition home or self-care (01) ==
PROVIDERS: PCP Family Medicine; Visit Provider Internal Medicine Nephrology
DX: N17.9 Acute kidney failure, unspecified (principal)
CPT/HCPCS: 36415; 80069; 85027; 85610; 85730; 86038

== ENCOUNTER → 2022-02-06 | Outpatient (CLI) | payer MEDICARE, SELFPAY ==
[2022-02-06] VITALS (9 sets, daily range): BP systolic 137–157; BP diastolic 67–86; PULSE 77–98; RESP 12–17; TEMP 36.7; O2SAT 98–100; BMI 25.8
--- NOTE | 2022-02-06 | KI_PTH ---
PATIENT: MACK MAYA LOC: [place] U#:[id number] AGE/SX: 71/F ROOM: RE02/06/[address]: Dr. Renetta Mary DO : 1950 BED: DIS: 02/06/2022 SPEC #: [id number] RECD: 02/06/22 09:48 STATUS: ROSIE REQ #: [id number] SHERRY: 02/06/22 00:[address]: Renetta Mary DEPT: SURGICAL PATHOLOGY RECD BY: Alice Schultz ENTERED: 02/06/22 10:55 SP TYPE: KIDNEY BX OT DR: Dr. Miguel Lowry MD Tissues: Kidney, NOS Procedures: Electron Microscopy (ACH) Fluorescent Antibody (ACH) Sp St Grp II Kidney (ACH) Kidney Biopsy (ACH) Fluorescent antibody (ACH) add'l HEADER OPERATION: CT-guided kidney biopsy PRE-OP DIAGNOSIS: Acute renal failure left kidney TISSUE SUBMITTED: Kidney 18-gauge core x4 MICROSCOPIC DIAGNOSIS Left kidney, biopsies: Diffuse acute and chronic interstitial nephritis. Arteriosclerotic/hypertensive changes. See comment. COMMENT Correlate clinically with history and onset of symptoms. Findings are supportive of interstitial nephritis. Correlate with history of NSAID use. There is no evidence of immune-mediated glomerulonehropathy; essentially negative immunofluorescence profile. There is no evidence of hypertensive changes. CLINICAL INFORMATION: Acute renal failure. CT-guided kidney biopsy. Left kidney. 18-gauge core x4. Past medical history of hypertension, hypokalemia, hyperlipidemia, deep vein thrombosis, acute renal failure syndrome, hysterectomy, knee arthroscopy and lumbar spinal fusion. Shortness of breath. Creatinine of 2.89. Chronic Advil use. Positive for COVID in December 2021. MICROSCOPIC DESCRIPTION Light microscopy examined with H & E, PAS, Bo silver, Congo red and trichrome stains yields adequate renal cortex for evaluation demonstrating 23 glomeruli; of which 4 are globally sclerotic. The remaining glomeruli demonstrate minimal change and mild mesangial expansion. There is no evidence of acute glomerular inflammation or crescent formation. There is a diffuse interstitial inflammatory cell population comprised of variable admixed eosinophils, neutrophils, lymphocytes and plasma cells. There is approximately 25% interstitial fibrosis noted on trichrome stain. There is proportionate tubule atrophy change. The tubules show mild acute injury. Examination of the vessels shows significant variable intimal layer thickening with focal myxoid changes. There is focal medullary renal tissue present. Congo red stain does not highlight or demonstrate any amyloid deposition or accumulation. Special stain positive controls are reviewed and deemed adequate. IMMUNOFLUORESCENCE: Tissue frozen and submitted for immunofluorescence evaluation yields 3 open glomeruli. There is a 1+ glomerular confluent signal with IgG and C3; C3 signal shows focal globules. IgM, IgA, C1q, fibrin, kappa and lambda are essentially negative. IgA shows some tubule signal. Albumin highlights background. Positive and negative immunofluorescence controls are reviewed and deemed adequate. ELECTRON MICROSCOPY: Toluidine blue semi-thin sections demonstrate 2 open glomeruli. Ultrastructure examination demonstrates variable thickening of the glomerular basement membrane with significant areas of convolution/folding. There is no evidence of membranous or mesangial deposits. There is rare membrane protein trapping. There is mild expansion of mesangial matrix. The podocytes demonstrate hypertrophic changes with focal microvillous changes and mild focal effacement changes. The tubules show mild degenerative changes. The interstitium demonstrates fibrotic change. GROSS DESCRIPTION The specimen is sent entirely to [facility] for diagnosis. Received in polytransport medium in a vial labeled with the patient?s name, medical record number and designation left kidney are four cores of juan renal tissue measuring 1.7 cm, 1.6 cm, 1.5 cm and 1.5 cm in length; each approximately 0.1 cm in width. Glomeruli are seen under the dissecting microscope. The specimen is divided for immunofluorescence, electron microscopy and light microscopy.
--- NOTE | 2022-02-06 07:43 | CT_ITS ---
PROCEDURE: CT GUIDED PERCUTANEOUS KIDNEY BIOPSY. DATE: 02/06/2022. INDICATION: Female, 71 years old. Acute renal failure. PHYSICIAN: Pedro Luis Cuadra M.D. MEDICATIONS: 2 mg of VERSED and 50 mcg of FENTANYL intravenously. Conscious sedation was started at 9:00 AM and terminated at 9:20 AM. The patient was independently monitored by the department nurse. ACCESS SITE: Lower pole of the left kidney. NEEDLE: 18-gauge core biopsy needle system. SPECIMEN: 4 18-gauge cores EBL: None. COMPLICATIONS: None immediate. RADIATION DOSAGE (If Supplied By Facility): CTDIvol = ( 14 ) mGy, DLP = ( 229.00 ) mGycm. Individualized dose optimization techniques were utilized. The risks, benefits, and alternatives to the procedure and sedation were explained to the patient. The specific risk of hemorrhage requiring further treatment or intervention was detailed and accepted. Written informed consent was obtained. The patient was placed on the CT table in the prone position. Multiple axial images were obtained from the lung base through the caudal extent of the kidneys. An appropriate entry site was identified and a vick made on the skin. The skin overlying the [left ] posterior flank was prepped and draped in sterile fashion. 1% lidocaine was administered subcutaneously for local anesthesia. Initially, a 22 gauge needle was advanced and CT images confirmed good needle position. The 22 gauge needle was then exchanged for an 17 gauge introducer needle which was advanced. Repeat CT images confirmed good needle trajectory and tip position. The introducer needle was then advanced into the periphery of the inferior renal pole, and CT images were again obtained to confirm exact tip location. The inner stylet of the introducer needle was then removed and an 18 gauge coaxial needle was advanced thru the introducer needle and biopsy performed. A total of [4 ] passes were performed and the specimen collected was sent to Pathology for further evaluation. The needle was withdrawn. Hemostasis was achieved with manual compression and a sterile dressing was applied. Repeat CT images of the biopsy area was performed which demonstrated no gross bleeding or hematoma. The patient tolerated the procedure well without immediate complications. The patient was transported to the [floor/recovery area] in stable condition. CT/Biopsy/Inj or Needle Placement IMPRESSION: Successful CT guided percutaneous kidney biopsy. Conscious sedation protocol was followed. Electronically Signed: Pedro Luis Cuadra MD at 9:43 EST ,
[2022-02-06] MEDS: Midazolam 2 MG/2 ML Syringe IV (08:59)
[2022-02-06] MEDS: fentaNYL 100 MCG/2 ML Ampul IV (09:00)
[2022-02-06] MEDS: Lidocaine 2% (10 ml mdv) 10 ML Vial INFILT (09:15)
== END | disposition home or self-care (01) ==
PROVIDERS: PCP Family Medicine; Referring Provider Internal Medicine Nephrology; Visit Provider Internal Medicine Nephrology
DX: N17.9 Acute kidney failure, unspecified (principal)
CPT/HCPCS: 50200; 77012; 88305; 88313; 88346; 88348; 88350; 99156; J7050

== ENCOUNTER 2022-02-09 07:18 | Outpatient (CLI) | payer MEDICARE, SELFPAY ==
--- NOTE | 2022-02-09 13:15 | STRESSREP ---
Stress Test Report Pharmacologic myocardial perfusion stress test. 72-year-old lady with a history of dyspnea on exertion Resting EKG demonstrates sinus bradycardia with a rate of 83 bpm. Resting blood pressure is 172/82 mmHg. 0.4 mg of regadenoson was infused per usual protocol followed by rapid intravenous saline flush injection. Continuous EKG monitoring was performed. The maximum heart rate was 112 bpm which was 75 of max impacted heart rate the maximum workload was 1 metabolic equivalent. At rest there were no ST or T wave changes noted to suggest ischemia and at peak infusion nonspecific ST changes were noted with did not meet the criteria for ischemia. Occasional premature ventricular complexes noted. No clinical angina is noted. The final blood pressure was 154/70 mmHg. Myocardial perfusion protocol. 11.7 mCi of technetium 99m sestamibi was injected at rest. 0.4 mg of regadenoson was infused per usual protocol. At peak infusion 33.1 mCi of technetium 99m sestamibi was injected stress images were obtained stress and rest images were reconstructed and compared in the short axis vertical long and horizontal long axis. Gated images were also obtained. Perfusion SPECT analysis: Review of the stress images demonstrate normal uptake of tracer noted in all areas of the myocardium. The resting images similar demonstrated normal uptake of tracer noted in all areas of the myocardium. No areas of reversibility are noted to suggest ischemia and no previous infarct is noted. Gated SPECT analysis: The gated ejection fraction is 66. Conclusion: Normal pharmacologic myocardial perfusion stress test. Preserved ejection fraction.
== END 2022-02-09 23:59 | disposition home or self-care (01) ==
PROVIDERS: PCP Family Medicine; Visit Provider Internal Medicine Cardiovascular Disease
DX: Z01.810 Encounter for preprocedural cardiovascular examination (principal); N17.9 Acute kidney failure, unspecified; D50.9 Iron deficiency anemia, unspecified; R79.89 Other specified abnormal findings of blood chemistry; I10 Essential (primary) hypertension; R06.09 Other forms of dyspnea; R94.31 Abnormal electrocardiogram [ECG] [EKG]
CPT/HCPCS: 36415; 78452; 80069; 85027; 93017; A9500; A4216; J2785

== ENCOUNTER → 2022-02-09 | Outpatient (CLI) | payer MEDICARE, SELFPAY ==
[2022-02-09 08:03] LABS: Hematocrit 26.5 % (37-47); Hemoglobin 9.3 g/dL (12.0-15.0); Mean Corp Hgb Conc 35.1 g/dL (32-36); Mean Corpuscular Volume 91.1 fL (81-99); Mean Platelet Vol. 9.5 fl (6.2-12.0); Platelet Count 452 K/mm3 (150-450); RBC Distribution Width CV 14.6 % (11.6-14.6); RBC Distribution Width SD 48.4 fl (35.1-43.9); Red Blood Count 2.91 M/mm3 (4.2-5.4); White Blood Count 10.8 K/mm3 (4.4-11.0)
[2022-02-09 08:23] LABS: Albumin, Serum 3.2 g/dL (3.2-5.0); BUN 56 mg/dL (7-18); BUN/Creat Ratio 12.2 RATIO (10-20); Calcium,Total 8.9 mg/dL (8.5-10.1); Chloride 113 mmol/L (98-107); Creatinine, Serum 4.59 mg/dL (0.55-1.02); EST Glomerular Filtration Rate 10 mL/min (>60); Est Glom Filt Rate - Afr Amer 12 mL/min (>60); Glucose 160 mg/dL (74-106); Phosphorus 3.6 mg/dL (2.5-4.9); Potassium 3.1 mmol/L (3.5-5.1); Sodium Level 140 mmol/L (136-145)
== END | disposition home or self-care (01) ==
PROVIDERS: Internal Medicine Nephrology; PCP Family Medicine; Referring Provider Internal Medicine Cardiovascular Disease; Visit Provider Internal Medicine Cardiovascular Disease
DX: Z01.810 Encounter for preprocedural cardiovascular examination (principal); N17.9 Acute kidney failure, unspecified; R94.31 Abnormal electrocardiogram [ECG] [EKG]; R06.09 Other forms of dyspnea; I10 Essential (primary) hypertension; R79.89 Other specified abnormal findings of blood chemistry; D64.9 Anemia, unspecified
CPT/HCPCS: 36415; 78452; 80069; 85027; 93017; A9500

== ENCOUNTER → 2022-02-13 | Outpatient (CLI) | payer MEDICARE, SELFPAY ==
[2022-02-16 15:08] LABS: Cytoplasmic Ab (C-ANCA) <1:20 titer (Neg:<1:20)
[2022-02-17 10:34] LABS: Perinuclear Ab (P-ANCA) <1:20 titer (Neg:<1:20)
== END | disposition home or self-care (01) ==
LOC: LAB 15:40
PROVIDERS: PCP Family Medicine; Visit Provider Internal Medicine Nephrology
DX: N17.9 Acute kidney failure, unspecified (principal)
CPT/HCPCS: 36415; 80069; 86256

== ENCOUNTER 2022-02-16 13:09 | Outpatient (CLI) | payer MEDICARE, SELFPAY ==
--- NOTE | 2022-02-16 13:12 | RAD_ITS ---
INDICATION: COUGH EXAMINATION/TECHNIQUE: X-RAY - XR Chest 2 Views COMPARISON: None. FINDINGS: LINES/DEVICES: None. LUNGS: No consolidation, edema or effusion. No pneumothorax. MEDIASTINUM AND CARDIOVASCULAR STRUCTURES: Cardiac silhouette not enlarged. Central airways and mediastinal contour are unremarkable. BONES AND SOFT TISSUES: Prior lumbar instrumentation. Otherwise unremarkable. RAD/Chest PA and Lateral IMPRESSION: No radiographic evidence of acute cardiopulmonary disease. Electronically Signed: Stacie Wilder MD at 17:21 EST Reading Location ID and State: [id number] / Tel , Service support ,
== END 2022-02-16 23:59 | disposition home or self-care (01) ==
LOC: PSN 13:10
PROVIDERS: PCP Family Medicine; Referring Provider Family Medicine; Visit Provider Family Medicine
DX: R05.9 Cough, unspecified (principal); J20.8 Acute bronchitis due to other specified organisms; J11.1 Influenza due to unidentified influenza virus with other respiratory manifestations; N10 Acute pyelonephritis
CPT/HCPCS: 71046; 87633; C9803

== ENCOUNTER 2022-02-28 11:29 | Outpatient (RCR) | payer MEDICARE, SELFPAY ==
[2022-02-20 17:19] LABS: Hematocrit 25.6 % (37-47); Hemoglobin 8.1 g/dL (12.0-15.0); Mean Corp Hgb Conc 31.6 g/dL (32-36); Mean Corpuscular Hgb 30.7 pg (27.0-32.0); Mean Platelet Vol. 10.7 fl (6.2-12.0); Platelet Count 307 K/mm3 (150-450); RBC Distribution Width CV 15.3 % (11.6-14.6); RBC Distribution Width SD 54.2 fl (35.1-43.9); Red Blood Count 2.64 M/mm3 (4.2-5.4); White Blood Count 16.5 K/mm3 (4.4-11.0)
[2022-02-20 17:32] LABS: Albumin, Serum 3.2 g/dL (3.2-5.0); BUN 42 mg/dL (7-18); BUN/Creat Ratio 13.1 RATIO (10-20); Chloride 109 mmol/L (98-107); Creatinine, Serum 3.21 mg/dL (0.55-1.02); EST Glomerular Filtration Rate 15 mL/min (>60); Est Glom Filt Rate - Afr Amer 18 mL/min (>60); Ferritin 408 ng/mL (8-252); Glucose 88 mg/dL (74-106); Iron 89 ug/dL (50-170); Iron Binding Capacity,Total 221 ug/dL (250-450); PERCENT IRON SATURATION 40.3 % (15.0-55.0); Phosphorus 2.5 mg/dL (2.5-4.9); Potassium 2.9 mmol/L (3.5-5.1); Sodium Level 138 mmol/L (136-145)
[2022-02-28 13:16] LABS: Albumin, Serum 3.4 g/dL (3.2-5.0); BUN 25 mg/dL (7-18); BUN/Creat Ratio 11.5 RATIO (10-20); Calcium,Total 8.6 mg/dL (8.5-10.1); Chloride 110 mmol/L (98-107); Creatinine, Serum 2.18 mg/dL (0.55-1.02); EST Glomerular Filtration Rate 24 mL/min (>60); Est Glom Filt Rate - Afr Amer 29 mL/min (>60); Glucose 112 mg/dL (74-106); Phosphorus 2.3 mg/dL (2.5-4.9); Potassium 3.6 mmol/L (3.5-5.1); Sodium Level 141 mmol/L (136-145)
== END 2022-03-04 23:59 ==
LOC: POLAB3 11:29
PROVIDERS: PCP Family Medicine; Visit Provider Internal Medicine Nephrology
DX: N10 Acute pyelonephritis (principal); D50.9 Iron deficiency anemia, unspecified
CPT/HCPCS: 36415; 80069; 82728; 83540; 83550; 85027

== ENCOUNTER → 2022-03-08 | Outpatient (CLI) | payer MEDICARE, SELFPAY ==
[2022-03-08 13:29] LABS: Mucous, Urine 0 SEEN /hpf (<or=2+); Squamous Epithelial Cells - UA 0 SEEN /hpf (5-10)
[2022-03-08 13:41] LABS: Color, Urine Yellow (Yellow); Glucose, Dipstick 100 mg/dl (Normal); Ketone-Dipstick Negative (Negative); Leukocyte Esterase-Dipstick Negative /ul (Negative); Nitrite-Dipstick Negative (Negative); Occult Blood-Urine 10 /ul (Negative); Protein-Dipstick 30 mg/dl (Negative); Urine Bilirubin Dipstick Negative (Negative); Urine Clarity Clear (Clear); Urine Urobilinogen Normal (Normal)
[2022-03-08 14:02] LABS: Bacteria 1+ /hpf (None Seen); Red Blood Cells-Urine 0-5 SEEN /hpf (0-5); White Blood Cells 0-5 SEEN /hpf (0-5)
== END | disposition home or self-care (01) ==
PROVIDERS: PCP Family Medicine; Visit Provider Internal Medicine Nephrology
DX: R30.0 Dysuria (principal); N39.0 Urinary tract infection, site not specified
CPT/HCPCS: 81001; 87086; 87088

== ENCOUNTER → 2022-03-28 | Outpatient (CLI) | payer MEDICARE, SELFPAY ==
--- NOTE | 2022-03-28 18:26 | US_ITS ---
INDICATION: LT FLANK PAIN EXAMINATION: US Kidney(s) complete (eg, kidneys and bladder) TECHNIQUE: Weller scale and color doppler images were obtained of the kidneys. COMPARISON: None. FINDINGS: RIGHT KIDNEY: Measures 9.7 cm in length.. There is no hydronephrosis. No shadowing calculus, focal lesion or perinephric collection is demonstrated. LEFT KIDNEY: Measures 9.4 cm in length.. There is no hydronephrosis. No shadowing calculus, focal lesion or perinephric collection is demonstrated. There is a simple 2.8 cm cyst in the inferior pole. URINARY BLADDER: No acute abnormality. US/Kidney and Bladder IMPRESSION: Normal renal ultrasound. Electronically Signed: Theodore Sexton MD at 19:59 EST ,
== END | disposition home or self-care (01) ==
LOC: US 18:24
PROVIDERS: PCP Family Medicine; Visit Provider Family Medicine
DX: R10.9 Unspecified abdominal pain (principal)
CPT/HCPCS: 76770

== ENCOUNTER → 2022-03-28 | Outpatient (CLI) | payer MEDICARE, SELFPAY ==
--- NOTE | 2022-03-28 11:56 | NM_ITS ---
CLINICAL: Female, 71 years old. ELEVATED D DIMER -- CXR TODAY NUCLEAR VENTILATION/PERFUSION - LUNG TECHNIQUE: The patient was administered 5.7 mCi of Tc MAA followed by a perfusion lung scan. The patient was administered mCi of 48 followed by a ventilation lung scan. Comparison made to prior chest radiograph dated 03/28/2022. FINDINGS: The pulmonary perfusion study demonstrates uniform perfusion throughout both lung recio. There are no demonstrated segmental or subsegmental perfusion defects The ventilation study demonstrates uniform ventilation throughout both lung recio. There are no segmental or subsegmental ventilation abnormalities. NM/Lung Scan Vent/Perf IMPRESSION: Normal 99m Tc MAA pulmonary perfusion Tc DTPA aerosol ventilation imaging survey, according to revised PIOPED interpretive criteria. Electronically Signed: Pedro Luis Cuadra MD at 13:02 EST ,
--- NOTE | 2022-03-28 12:45 | RAD_ITS ---
STUDY: X-RAY CHEST REASON FOR EXAM: Female, 71 years old. SOB, ELEVATED D-DIMER , LUNG SCAN TECHNIQUE: PA and lateral views of the chest. COMPARISON: Comparison is made with prior study 02/16/2022. FINDINGS: There is hyperinflation of the lungs consistent with chronic obstructive lung disease (COPD). There is no demonstrated pleural abnormality. Normal size heart. Normal mediastinum and berna. Normal visualized pulmonary arteries. There is atherosclerotic calcification of the aortic arch with tortuosity. There is demineralization of the osseous structures. Stable loss of height of the mid dorsal vertebrae. Healed right rib fractures. There is no demonstrated abnormality of the visualized soft tissue structures of the upper abdomen. RAD/Chest PA and Lateral IMPRESSION: Hyperinflation. The lungs are clear. Electronically Signed: Pedro Luis Cuadra MD at 13:04 EST ,
== END | disposition home or self-care (01) ==
LOC: NM 11:55
PROVIDERS: PCP Family Medicine; Visit Provider Family Medicine
DX: R07.89 Other chest pain (principal); R09.89 Other specified symptoms and signs involving the circulatory and respiratory systems
CPT/HCPCS: 71046; 76770; 78582; A9540; A9567

== ENCOUNTER → 2022-03-29 | Outpatient (CLI) | payer MEDICARE, SELFPAY ==
--- NOTE | 2022-03-29 13:35 | RAD_ITS ---
STUDY: X-RAY - THORACIC SPINE REASON FOR EXAM: Female, 71 years old. ACUTE THORACIC BACK PAIN TECHNIQUE: 3 view(s) of the thoracic spine were obtained. COMPARISON: None. FINDINGS: There is an increase in the normal thoracic kyphosis. Mild dextroscoliosis. There is demineralization of the thoracic spine with endplate spondylosis. There is multilevel disc space narrowing of the thoracic spine. 60% loss of height of the lower dorsal vertebrae. The soft tissue structures are unremarkable. RAD/Thoracic Spine 3 Views IMPRESSION: Increased kyphosis. Mild dextroscoliosis. Multilevel spondylosis and disc space narrowing with approximately 60% loss of height of the lower dorsal vertebrae. Electronically Signed: Pedro Luis Cuadra MD at 15:52 EST ,
--- NOTE | 2022-03-29 13:36 | RAD_ITS ---
STUDY: X-RAY - UNILATERAL RIBS ( LEFT ) WITH CHEST REASON FOR EXAM: Female, 71 years old. CHEST PAIN L SIDE TECHNIQUE - RIBS: 2 view(s) of the ribs. TECHNIQUE - CHEST: Single PA view of the chest. COMPARISON: Comparison is made with prior study dated 09/25/2022. FINDINGS - RIBS: Normal visualized ribs without a demonstrated fracture. FINDINGS - CHEST: The lungs are clear and expanded. There is no demonstrated pleural abnormality. Normal size heart. Normal mediastinum and berna. Normal visualized pulmonary arteries. There is atherosclerotic calcification of the aortic arch with tortuosity. There are diffuse degenerative changes of the visualized thoracic spine. Dextroscoliosis. Normal visualized ribs, clavicles, and shoulders. There is no demonstrated abnormality of the visualized soft tissue structures of the upper abdomen. RAD/Ribs Uni Min 3V w/PA Chest IMPRESSION: RIBS: Normal x-ray examination of the ribs. CHEST: Normal x-ray examination of the chest. Electronically Signed: Pedro Luis Cuadra MD at 15:54 EST ,
== END | disposition home or self-care (01) ==
LOC: RAD 13:34
PROVIDERS: PCP Family Medicine; Referring Provider Family Medicine; Visit Provider Family Medicine
DX: M54.6 Pain in thoracic spine (principal); R07.89 Other chest pain
CPT/HCPCS: 71101; 72072

== ENCOUNTER 2022-04-03 | Outpatient (RCR) | payer MEDICARE, SELFPAY ==
[2022-03-07 16:49] LABS: Albumin, Serum 3.5 g/dL (3.2-5.0); BUN 35 mg/dL (7-18); Calcium,Total 9.1 mg/dL (8.5-10.1); Chloride 109 mmol/L (98-107); Creatinine, Serum 2.19 mg/dL (0.55-1.02); EST Glomerular Filtration Rate 23 mL/min (>60); Est Glom Filt Rate - Afr Amer 28 mL/min (>60); Glucose 105 mg/dL (74-106); Phosphorus 2.7 mg/dL (2.5-4.9); Potassium 3.7 mmol/L (3.5-5.1); Sodium Level 141 mmol/L (136-145)
[2022-03-13 13:26] LABS: Albumin, Serum 3.3 g/dL (3.2-5.0); BUN 31 mg/dL (7-18); BUN/Creat Ratio 15.1 RATIO (10-20); Calcium,Total 8.7 mg/dL (8.5-10.1); Chloride 106 mmol/L (98-107); Creatinine, Serum 2.05 mg/dL (0.55-1.02); EST Glomerular Filtration Rate 25 mL/min (>60); Est Glom Filt Rate - Afr Amer 31 mL/min (>60); Glucose 96 mg/dL (74-106); Phosphorus 2.7 mg/dL (2.5-4.9); Potassium 3.9 mmol/L (3.5-5.1); Sodium Level 137 mmol/L (136-145)
[2022-03-20 13:04] LABS: Hematocrit 26.9 % (37-47); Hemoglobin 8.6 g/dL (12.0-15.0); Mean Platelet Vol. 9.8 fl (6.2-12.0); Platelet Count 362 K/mm3 (150-450); RBC Distribution Width CV 15.2 % (11.6-14.6); RBC Distribution Width SD 56.1 fl (35.1-43.9); Red Blood Count 2.69 M/mm3 (4.2-5.4); White Blood Count 9.5 K/mm3 (4.4-11.0)
[2022-03-21 12:11] LABS: Albumin, Serum 3.3 g/dL (3.2-5.0); BUN 25 mg/dL (7-18); Calcium,Total 8.4 mg/dL (8.5-10.1); Chloride 106 mmol/L (98-107); Creatinine, Serum 1.92 mg/dL (0.55-1.02); EST Glomerular Filtration Rate 27 mL/min (>60); Est Glom Filt Rate - Afr Amer 33 mL/min (>60); Glucose 94 mg/dL (74-106); Phosphorus 2.3 mg/dL (2.5-4.9); Potassium 4.3 mmol/L (3.5-5.1); Sodium Level 135 mmol/L (136-145)
[2022-03-27 12:48] LABS: Albumin, Serum 3.3 g/dL (3.2-5.0); BUN 31 mg/dL (7-18); BUN/Creat Ratio 15.7 RATIO (10-20); Calcium,Total 8.7 mg/dL (8.5-10.1); Chloride 106 mmol/L (98-107); Creatinine, Serum 1.97 mg/dL (0.55-1.02); EST Glomerular Filtration Rate 26 mL/min (>60); Est Glom Filt Rate - Afr Amer 32 mL/min (>60); Glucose 106 mg/dL (74-106); Phosphorus 2.8 mg/dL (2.5-4.9); Potassium 3.9 mmol/L (3.5-5.1); Sodium Level 135 mmol/L (136-145)
[2022-04-03 14:06] LABS: Albumin, Serum 3.4 g/dL (3.2-5.0); BUN 40 mg/dL (7-18); BUN/Creat Ratio 22.9 RATIO (10-20); Calcium,Total 9.1 mg/dL (8.5-10.1); Chloride 108 mmol/L (98-107); Creatinine, Serum 1.75 mg/dL (0.55-1.02); EST Glomerular Filtration Rate 30 mL/min (>60); Est Glom Filt Rate - Afr Amer 37 mL/min (>60); Glucose 98 mg/dL (74-106); Phosphorus 3.1 mg/dL (2.5-4.9); Sodium Level 137 mmol/L (136-145)
== END 2022-04-03 23:59 | disposition home or self-care (01) ==
LOC: POLAB3
PROVIDERS: PCP Family Medicine; Visit Provider Internal Medicine Nephrology
DX: N10 Acute pyelonephritis (principal)
CPT/HCPCS: 36415; 80069; 85027

== ENCOUNTER → 2022-04-03 | Outpatient (CLI) | payer MEDICARE, SELFPAY ==
--- NOTE | 2022-04-03 13:45 | MRI_ITS ---
STUDY: MRI THORACIC SPINE WITHOUT CONTRAST REASON FOR EXAM: Female, 71 years old. COMPRESSION FX TECHNIQUE: Standardized fat and water weighted pulse sequences were obtained in the sagittal and axial planes. COMPARISON: None. FINDINGS: Normal kyphosis of the thoracic spine. There is no substantial scoliosis. There is a compression fracture of T9 approximately 10% vertebral body height demonstrating intramedullary bone marrow edema consistent with acute fracture. There is no retropulsion of bony fragment or spinal stenosis. There is multilevel disc space narrowing and endplate spurring. . Is also multilevel disc degeneration without evidence for significant disc protrusion spinal stenosis or cord compression. Normal visualized thoracic cord. Normal conus medullaris that terminates at T12-L1 The soft tissue structures are unremarkable. MRI/Spine Thoracic (Routine) IMPRESSION: Mild acute compression fracture of superior endplate of T9. Electronically Signed: Valeriy Valreo MD at 16:12 EST ,
== END | disposition home or self-care (01) ==
PROVIDERS: PCP Family Medicine; Referring Provider Family Medicine; Visit Provider Family Medicine
DX: S22.000D Wedge compression fracture of unspecified thoracic vertebra, subsequent encounter for fracture with routine healing (principal)
CPT/HCPCS: 72146

== ENCOUNTER → 2022-04-04 | Outpatient (CLI) | payer MEDICARE, SELFPAY | END | disposition home or self-care (01) | LOC: POLAB3 11:03 | PROVIDERS: PCP Family Medicine; Visit Provider Internal Medicine Nephrology | DX: R32 Unspecified urinary incontinence (principal) | CPT/HCPCS: 87077; 87086; 87088 ==

== ENCOUNTER → 2022-04-18 | Outpatient (CLI) | payer MEDICARE, SELFPAY ==
--- NOTE | 2022-04-18 18:20 | BONBX_PTH ---
PATIENT: MACK MAYA [facility] U#:[id number] AGE/SX: 71/F ROOM: RE04/18/[address]: Dr. Bret Lo MD : [id number] BED: DIS: 04/18/2022 SPEC #: [id number] RECD: 04/18/22 19:27 STATUS: ROSIE REQ #: [id number] SHERRY: 04/18/22 18:[address]: Bret Lo DEPT: SURGICAL PATHOLOGY RECD BY: Alice Schultz ENTERED: 04/19/22 10:04 SP TYPE: Bone OTHR DR: Dr. Miguel Lowry MD Tissues: Vertebra, NOS Procedures: Decalcification bone/plaque Surgery Specimen Level V HEADER OPERATION: Kyphoplasty T9 PRE-OP DIAGNOSIS: Compression fracture TISSUE SUBMITTED: T9 vertebral body MICROSCOPIC DIAGNOSIS T9 vertebral body, kyphoplasty: Fragments of bone with reactive changes, clinically compression fracture. See comment. SJ:samuel 04/20/2022 COMMENT Trilineage hematopoiesis is noted. Clinical correlation and appropriate follow up are necessary. MICROSCOPIC DESCRIPTION Slides are reviewed. GROSS DESCRIPTION Received is one container labeled with the patient's name and not further designated. The specimen consists of multiple irregular fragments of blood clot mixed with possible fragment of bone that in aggregate measure 1.0 x 0.3 x 0.1 cm. The specimen is totally submitted in one cassette after decalcification. / KIMBERLY:samuel 04/19/2022 TC:5 CPT: 18527, 71481
== END | disposition home or self-care (01) ==
LOC: LABSPEC 19:34
PROVIDERS: PCP Family Medicine; Visit Provider Anesthesiology Pain Medicine
DX: M48.54XA Collapsed vertebra, not elsewhere classified, thoracic region, initial encounter for fracture (principal)
CPT/HCPCS: 88307; 88311

== ENCOUNTER 2022-04-25 10:55 | Outpatient (RCR) | payer MEDICARE, SELFPAY ==
[2022-04-10 14:05] LABS: Albumin, Serum 3.3 g/dL (3.2-5.0); BUN 37 mg/dL (7-18); BUN/Creat Ratio 22.7 RATIO (10-20); Chloride 107 mmol/L (98-107); Creatinine, Serum 1.63 mg/dL (0.55-1.02); EST Glomerular Filtration Rate 33 mL/min (>60); Est Glom Filt Rate - Afr Amer 40 mL/min (>60); Glucose 98 mg/dL (74-106); Phosphorus 2.8 mg/dL (2.5-4.9); Potassium 4.1 mmol/L (3.5-5.1); Sodium Level 138 mmol/L (136-145)
[2022-04-25 13:24] LABS: Absolute Lymphocyte Count 1.58 X10^3/uL (0.83-4.51); Absolute Neutrophil Count 4.9 X10^3/uL (2.0-7.7); Basophil# 0.08 X10^3/uL; Eosinophils% 2.6 % (0-5); Hematocrit 32.7 % (37-47); Hemoglobin 10.1 g/dL (12.0-15.0); Lymphocyte # 1.58 X10^3/ul (0.83-4.51); Lymphocyte % 20.7 % (19-41); Mean Corp Hgb Conc 30.9 g/dL (32-36); Mean Corpuscular Hgb 31.8 pg (27.0-32.0); Mean Corpuscular Volume 102.8 fL (81-99); Mean Platelet Vol. 10.1 fl (6.2-12.0); Monocyte# 0.83 X10^3/uL; Monocyte% 10.9 % (0-10); NRBC Flagged by Analyzer 0 % (0-5); Neutrophil # 4.91 X10^3/uL (2.7-7.7); Neutrophil % 64.4 % (47-70); Platelet Count 324 K/mm3 (150-450); RBC Distribution Width CV 13.1 % (11.6-14.6); RBC Distribution Width SD 49.1 fl (35.1-43.9); Red Blood Count 3.18 M/mm3 (4.2-5.4); White Blood Count 7.6 K/mm3 (4.4-11.0)
[2022-04-25 13:39] LABS: Vitamin B12 510 pg/mL (211-911)
[2022-04-25 13:44] LABS: Albumin, Serum 3.2 g/dL (3.2-5.0); BUN 29 mg/dL (7-18); BUN/Creat Ratio 18.5 RATIO (10-20); Calcium,Total 8.8 mg/dL (8.5-10.1); Chloride 107 mmol/L (98-107); Creatinine, Serum 1.57 mg/dL (0.55-1.02); EST Glomerular Filtration Rate 34 mL/min (>60); Est Glom Filt Rate - Afr Amer 42 mL/min (>60); Ferritin 89 ng/mL (8-252); Glucose 88 mg/dL (74-106); Iron 50 ug/dL (50-170); Potassium 3.7 mmol/L (3.5-5.1); Sodium Level 138 mmol/L (136-145)
== END 2022-05-02 23:59 ==
LOC: POLAB3 10:55
PROVIDERS: PCP Family Medicine; Visit Provider Internal Medicine Nephrology
DX: N10 Acute pyelonephritis (principal); D64.9 Anemia, unspecified
CPT/HCPCS: 36415; 80069; 82607; 82728; 83540; 85025

== ENCOUNTER 2022-04-26 20:35 | Emergency (ER) | payer MEDICARE, SELFPAY ==
[2022-04-26 20:37] VITALS: BP 137/70; PULSE 92; RESP 18; TEMP 36.8; O2SAT 98; BMI 27.8
[2022-04-26 20:58] VITALS: BP 134/63; PULSE 87; RESP 16; O2SAT 98
--- NOTE | 2022-04-26 21:35 | CT_ITS ---
STUDY: CT LUMBAR SPINE WITHOUT CONTRAST REASON FOR EXAM: Female, 71 years old. pain RADIATION DOSAGE (If Supplied By Facility): CTDIvol = ( 15.22 ) mGy, DLP = ( 506.81 ) mGycm TECHNIQUE: The patient was scanned in a multi detector CT scanner. High resolution transaxial imaging was performed. Images were obtained from to . Sagittal and coronal images were reconstructed. Individualized dose optimization techniques were used for this CT. COMPARISON: None FINDINGS: Normal lumbar lordosis. There is severe levoscoliosis. Normal vertebrae of the lumbar spine. L1-2: Normal endplates. Normal disc height and minor annular bulge.. Normal bilateral facet joints. Normal central canal and bilateral lateral recesses. Normal bilateral intervertebral neural foramina. L2-3: Normal endplates. Normal disc height and minor annular bulge. Mild facet arthropathy and thickening of ligamenta flava. Normal central canal and bilateral lateral recesses. Mild bilateral neural foraminal encroachment. L3-4: Postop change status post bilateral laminectomy posterior fusion and disc spacer placement . Minor annular bulge with right foraminal disc protrusion. Normal bilateral facet joints. Normal central canal and bilateral lateral recesses. Mild left neural foraminal stenosis and moderate narrowing on the right L4-5: Postop change status post bilateral laminectomy posterior fusion and disc spacer placement. Grade 1 spondylolisthesis . Mild bulging disc osteophyte complex.. Bilateral facet arthropathy.. Normal central canal and bilateral lateral recesses. Mild bilateral neural foraminal encroachment.. L5-S1: Normal endplates. Narrowed disc space and minor annular bulge with small left foraminal disc/osteophyte protrusion bilateral facet arthropathy.. Normal central canal and bilateral lateral recesses. Moderate right neural foraminal stenosis and severe narrowing on the left. 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 CT/Spine Lumbar without Contrast IMPRESSION: No evidence for acute fracture or bony pathology. Postsurgical changes at L3-4 and L4-5. Apparent spinal stenosis at L3-4, L4-5 and L5-S1 secondary to disc disease and bony hypertrophy. This may be further assessed with MRI if clinically warranted Electronically Signed: Valeriy Valero MD at 22:12 EST ,
--- NOTE | 2022-04-26 22:12 | EDS_ITS ---
HPI History of Present Illness Chief Complaint: Back Narrative Narrative: 71-year-old female past medical history of hypertension, osteopenia, sees pain management for T9 vertebral fracture. She states that she had kyphoplasty approximately [address] Lo. On Sunday, she was having pain, and she called the RN who [place], but her tramadol was helping. She takes 100 mg twice a day as needed for pain. Over the last few days, she developed bilateral leg pain and low back pain. She denies fevers or chills. No saddle anesthesia, no loss of bowel or bladder/sensation of urination. She presents because of the new pain in her low back radiating down the back of both of her legs. She states that her muscles feel tight. Pain is worse with movement. [facility] Medical History Deep vein thrombophlebitis of right leg (1965) Essential hypertension Lymphedema Osteoarthritis Varicose vein of leg Home Medications duloxetine 60 mg capsule,delayed release 60 mg PO DAILY pain 12/02/18 [History Last Taken Unknown] calcium citrate 315 mg calcium-vitamin D3 6.25 mcg (250 unit) tablet (Citracal + Vitamin D Maximum) 1 tab PO DAILY 01/21/20 [History Last Taken Unknown] multivitamin 1 tab PO DAILY 01/21/20 [History Last Taken Unknown] amlodipine 5 mg tablet 5 mg PO DAILY #30 tabs 01/23/22 [Rx Last Taken Unknown] potassium chloride 20 mEq tablet,extended release 10 meq PO BID 02/06/22 [History Last Taken Unknown] prednisone 5 mg tablet 5 mg PO QODAY 04/26/22 [History Last Taken Unknown] tramadol 100 mg tablet 100 mg PO BID PRN Pain 04/26/22 [History Last Taken Unknown] Allergy/AdvReac Type Severity Reaction Status Date / Time Sulfa (Sulfonamide Allergy Rash Verified 04/26/22 20:40 Antibiotics) Family History Mother CVA (cerebral vascular accident), Onset Age: 72 Hypertension Father Cancer Brain Alcoholism Brother Cancer leukemia Atrial fibrillation Surgical History Gluteal tendonitis of right buttock (~02/2020) History of arthroscopy of left knee (2000) History of section History of hysterectomy History of lumbar spinal fusion (~02/2021) Social History Smoking Status: Former smoker second hand exposure: No alcohol intake: current alcohol intake frequency: a few times a month Alcohol type: beer substance use type: does not use caffeine: Yes Type: coffee Number of servings: 3 ROS ROS ED ROS Narrative Constitutional: No fever, no chills. HEENT: No sore throat. No neck pain. No loss of vision. No rhinorrhea. Cardiovascular: No chest pain. No palpitations. No pedal edema. Respiratory: No cough, no shortness of breath. Abdominal: No abdominal pain. No nausea. No vomiting. Genitourinary: No dysuria. No hematuria. Musculoskeletal: No myalgias. No arthralgias. Low back pain. Bilateral posterior leg pain. Neurologic: No headaches. No dizziness. No lightheadedness. No saddle anesthesia. No loss of bowel or bladder without sensation. Skin: No rash. No change in color. Psychiatric: No depression. No anxiety. EXAM Physical Exam Narrative Exam Narrative: Afebrile. Vital signs noted. HEENT: Normocephalic. Atraumatic. PERRL, EOMI. Neck soft and supple. No point tenderness or step off. Cardiovascular: Regular rate and rhythm. No murmurs, rubs, or gallops appreciated. Respiratory: No tachypnea. Lungs clear to auscultation bilaterally. Gastrointestinal: Abdomen soft, nontender, with normoactive bowel sounds. No rebound or guarding. Neurological: Awake. Alert. Nonfocal, nonlateralizing. DTRs equal and symmetric. No step-off. Skin: No rash. Normal color. No pallor. Musculoskeletal: No pedal edema. Full range of motion extremities. Const Vital Signs: 04/26/22 20:37 04/26/22 20:58 Temperature 98.2 F Temperature Source Temporal Pulse Rate 92 87 Respiratory Rate 18 16 Blood Pressure 137/70 H 134/63 H Blood Pressure Mean 92 86 Pulse Ox 98 98 Oxygen Delivery Method Room Air Room Air MDM MDM MDM Narrative Medical decision making narrative: I do feel that the area above her low back at T9 where she had her kyphoplasty is too high to be causing symptoms of lumbar radiculopathy down both her legs. She does not have fever or chills so I am not concerned about abscess. She is able to move both her legs so I do not think that she has having spinal cord compression. CT was obtained of the lumbar spine to look for a new fracture. She did state that she had history of fusion approximately a year ago by a doctor at the [facility]. I did consider offering her narcotic pain medications, but do not want to break her pain contract. However, she states that she has not urine tested. In the past, I have been told by other pain management doctors that with chronic pain, that if it was felt that they needed 1 dose of narcotic pain medication, that they could receive it. She will be given morphine 6 mg intramuscularly. I reviewed the CT results and there is no evidence for acute fracture or bony pathology, and there are postsurgical changes at L3-L4 and L4-L5, but there is spinal stenosis noted at L3-L4, L4-L5, and L5-S1 secondary to disc disease and bony hypertrophy. At this point in time, she can follow-up with her pain management provider, and her spine surgeon at the [facility] for possible outpatient MRI and further treatment for her spinal stenosis and lumbar radiculopathy. Disposition is discharged home in stable condition. Radiography Diagnostic Testing: Clinical Impression(s) from Imaging Studies Lumbar Spine CT 04/26/22 21:35 IMPRESSION: No evidence for acute fracture or bony pathology. Postsurgical changes at L3-4 and L4-5. Apparent spinal stenosis at L3-4, L4-5 and L5-S1 secondary to disc disease and bony hypertrophy. This may be further assessed with MRI if clinically warranted Electronically Signed: Valeriy Valero MD at 22:12 EST , Discharge Plan Triage Chief Complaint: Back ED Provider: Cyrus Shaw Dx/Rx/DC Orders Clinical Impression: Bilateral lumbar radiculopathy, Spinal stenosis Instructions: Low Back Leg Pain Causes, ED Sciatica Prescriptions: No Action calcium citrate-vitamin D3 [Citracal + D Maximum] 315 mg-6.25 mcg (250 unit) tablet 1 tab PO DAILY multivitamin Tablet 1 tab PO DAILY duloxetine 60 MG capsule 60 mg PO DAILY potassium chloride 20 mEq tablet extended release 10 meq PO BID prednisone 5 mg Tablet 5 mg PO QODAY tramadol 100 mg Tablet 100 mg PO BID PRN (Reason: Pain) amlodipine 5 mg tablet 5 mg PO DAILY Qty: 30 11RF Primary Care Provider: Miguel Lowry Referrals: Bret Lo MD [Med Staff - Active Staff] - As soon as possible Miguel Lowry MD [Primary Care Provider] - Activity Restrictions/Additional Instructions: Follow-up with your spine surgeon at the [facility] as soon as possible. You have spinal stenosis at multiple levels in your lumbar spine. Tell your pain management doctor that you did receive 1 dose of morphine in the emergency department. Disposition Disposition: Home, Self Care
[2022-04-26] MEDS: Morphine 4 MG/ML Syringe 6 MG IM (22:41)
[2022-04-26 22:44] VITALS: PULSE 69; RESP 15; O2SAT 96
== END 2022-04-26 23:00 | disposition home or self-care (01) ==
PROVIDERS: Emergency Provider Emergency Medicine; PCP Family Medicine; Visit Provider Emergency Medicine
DX: M54.16 Radiculopathy, lumbar region (principal); S22.079S Unspecified fracture of T9-T10 vertebra, sequela; Z87.891 Personal history of nicotine dependence; I10 Essential (primary) hypertension; M48.00 Spinal stenosis, site unspecified; Z86.718 Personal history of other venous thrombosis and embolism
CPT/HCPCS: 72131; 99282

== ENCOUNTER → 2022-05-15 | Outpatient (CLI) | payer MEDICARE, SELFPAY ==
[2022-05-15 13:23] LABS: Hematocrit 34.5 % (37-47); Hemoglobin 11.1 g/dL (12.0-15.0); Mean Corp Hgb Conc 32.2 g/dL (32-36); Mean Corpuscular Hgb 32.3 pg (27.0-32.0); Mean Corpuscular Volume 100.3 fL (81-99); Mean Platelet Vol. 10.5 fl (6.2-12.0); Platelet Count 315 K/mm3 (150-450); RBC Distribution Width CV 12.3 % (11.6-14.6); RBC Distribution Width SD 45.3 fl (35.1-43.9); Red Blood Count 3.44 M/mm3 (4.2-5.4); White Blood Count 7.9 K/mm3 (4.4-11.0)
[2022-05-15 13:32] LABS: Albumin, Serum 3.2 g/dL (3.2-5.0); BUN 31 mg/dL (7-18); BUN/Creat Ratio 16.2 RATIO (10-20); Calcium,Total 9.1 mg/dL (8.5-10.1); Chloride 109 mmol/L (98-107); Creatinine, Serum 1.91 mg/dL (0.55-1.02); EST Glomerular Filtration Rate 27 mL/min (>60); Est Glom Filt Rate - Afr Amer 33 mL/min (>60); Glucose 95 mg/dL (74-106); Phosphorus 2.7 mg/dL (2.5-4.9); Potassium 3.9 mmol/L (3.5-5.1); Sodium Level 139 mmol/L (136-145)
== END | disposition home or self-care (01) ==
LOC: POLAB3 11:38
PROVIDERS: PCP Family Medicine; Visit Provider Internal Medicine Nephrology
DX: D50.9 Iron deficiency anemia, unspecified (principal); N10 Acute pyelonephritis
CPT/HCPCS: 36415; 80069; 85027

== ENCOUNTER → 2022-05-30 | Outpatient (CLI) | payer MEDICARE, SELFPAY ==
[2022-05-30 12:01] LABS: Bacteria 0 SEEN /hpf (None Seen); Mucous, Urine 0 SEEN /hpf (<or=2+); Red Blood Cells-Urine 0 SEEN /hpf (0-5); Squamous Epithelial Cells - UA 0 SEEN /hpf (5-10); White Blood Cells 0 SEEN /hpf (0-5)
[2022-05-30 12:33] LABS: Color, Urine Yellow (Yellow); Glucose, Dipstick Normal (Normal); Ketone-Dipstick Negative (Negative); Leukocyte Esterase-Dipstick Negative /ul (Negative); Nitrite-Dipstick Negative (Negative); Occult Blood-Urine Negative /ul (Negative); Protein-Dipstick 30 mg/dl (Negative); Specific Gravity, Urine 1.005 (1.002-1.030); Urine Bilirubin Dipstick Negative (Negative); Urine Clarity Clear (Clear); Urine Urobilinogen Normal (Normal); Urine pH 6.5 (5.0 - 8.0)
[2022-05-30 13:03] LABS: Albumin, Serum 3.3 g/dL (3.2-5.0); BUN 43 mg/dL (7-18); BUN/Creat Ratio 24.6 RATIO (10-20); Calcium,Total 8.5 mg/dL (8.5-10.1); Chloride 109 mmol/L (98-107); Creatinine, Serum 1.75 mg/dL (0.55-1.02); EST Glomerular Filtration Rate 30 mL/min (>60); Est Glom Filt Rate - Afr Amer 37 mL/min (>60); Glucose 90 mg/dL (74-106); Phosphorus 2.9 mg/dL (2.5-4.9); Potassium 3.2 mmol/L (3.5-5.1); Sodium Level 136 mmol/L (136-145)
== END | disposition home or self-care (01) ==
PROVIDERS: PCP Family Medicine; Visit Provider Internal Medicine Nephrology
DX: N10 Acute pyelonephritis (principal)
CPT/HCPCS: 36415; 80069; 81001

== ENCOUNTER → 2022-06-12 | Outpatient (CLI) | payer MEDICARE, SELFPAY ==
--- NOTE | 2022-06-12 10:13 | BI_ITS ---
MAMMOGRAPHY - BILATERAL SCREENING 3-D TOMOSYNTHESIS REASON FOR EXAM: Female, 71 years old. SCREENING PERTINENT HISTORY: No significant family history. TECHNIQUE: 2-D mammograms and 3-D Tomosynthesis of the breast (s) were performed. CAD was performed. COMPARISON: None. FINDINGS: The breast composition is almost entirely fat. Scattered benign calcifications are seen. No dense spiculated masses or suspicious microcalcifications are identified. No architectural distortion is identified. There is no skin thickening or retraction. There has been no significant change since the prior study. BI/SCRN MAMM (CAD)W/MARIBEL BILAT IMPRESSION: No mammographic signs of malignancy. Routine yearly mammograms recommended. ASSESSMENT CATEGORY: BIRADS Category 1: Negative. A letter regarding these results will be sent to the patient by the facility within 30 days. FOLLOW UP RECOMMENDATION: Yearly follow up mammogram recommended. (A) Approximately 10% of breast cancers are not detected by mammography. A normal mammogram should not delay biopsy of a clinically suspicious abnormality. Electronically Signed: Barrington Piña MD at 11:02 EDT ,
== END | disposition home or self-care (01) ==
LOC: OPBI 10:11
PROVIDERS: PCP Family Medicine; Referring Provider Student in an Organized Health Care Education/Training Program; Visit Provider Student in an Organized Health Care Education/Training Program
DX: Z12.31 Encounter for screening mammogram for malignant neoplasm of breast (principal)
CPT/HCPCS: 77063; 77067

== ENCOUNTER → 2022-06-12 | Outpatient (CLI) | payer MEDICARE, SELFPAY ==
[2022-06-12 12:47] LABS: Vitamin D,25 Hydroxy 39.6 ng/mL
[2022-06-12 13:08] LABS: Albumin, Serum 3.5 g/dL (3.2-5.0); BUN 35 mg/dL (7-18); BUN/Creat Ratio 20.1 RATIO (10-20); Calcium,Total 8.7 mg/dL (8.5-10.1); Chloride 111 mmol/L (98-107); Creatinine, Serum 1.74 mg/dL (0.55-1.02); EST Glomerular Filtration Rate 31 mL/min (>60); Est Glom Filt Rate - Afr Amer 37 mL/min (>60); Glucose 87 mg/dL (74-106); Phosphorus 2.8 mg/dL (2.5-4.9); Potassium 3.9 mmol/L (3.5-5.1); Sodium Level 140 mmol/L (136-145)
== END | disposition home or self-care (01) ==
LOC: POLAB3 11:06
PROVIDERS: PCP Family Medicine; Visit Provider Internal Medicine Nephrology
DX: N10 Acute pyelonephritis (principal); E55.9 Vitamin D deficiency, unspecified
CPT/HCPCS: 36415; 80069; 82306

== ENCOUNTER → 2022-06-15 | Outpatient (CLI) | payer MEDICARE, SELFPAY ==
[2022-06-15 10:54] LABS: Bacteria 0 SEEN /hpf (None Seen); Mucous, Urine 0 SEEN /hpf (<or=2+); Red Blood Cells-Urine 0 SEEN /hpf (0-5); Squamous Epithelial Cells - UA 0 SEEN /hpf (5-10); White Blood Cells 0 SEEN /hpf (0-5)
[2022-06-15 13:12] LABS: Color, Urine Yellow (Yellow); Glucose, Dipstick Normal (Normal); Ketone-Dipstick Negative (Negative); Leukocyte Esterase-Dipstick Negative /ul (Negative); Nitrite-Dipstick Negative (Negative); Occult Blood-Urine Negative /ul (Negative); Protein-Dipstick 15 mg/dl (Negative); Urine Bilirubin Dipstick Negative (Negative); Urine Clarity Clear (Clear); Urine Urobilinogen Normal (Normal)
== END | disposition home or self-care (01) ==
LOC: POLAB3 10:50
PROVIDERS: PCP Family Medicine; Visit Provider Internal Medicine Nephrology
DX: N10 Acute pyelonephritis (principal); D50.9 Iron deficiency anemia, unspecified
CPT/HCPCS: 81001

== ENCOUNTER 2022-06-28 07:18 | Day surgery (SDC) | payer MEDICARE, SELFPAY ==
--- NOTE | 2022-06-26 09:26 | EKG12_ITS ---
Test Reason : MA OP Blood Pressure : / mmHG Vent. Rate : 080 BPM Atrial Rate : 080 BPM P-R Int : 140 ms QRS Dur : 078 ms QT Int : 380 ms P-R-T Axes : 049 017 037 degrees QTc Int : 438 ms Normal sinus rhythm Nonspecific ST abnormality Abnormal ECG Confirmed by NIKKIE VERAS, HARISH ([id number]), editor house organ KARINA COTTON ([id number]) on 06/26/2022 12:38:14 PM Referred By: Herb Huerta Confirmed By:HARISH LUNDY MD
[2022-06-26 13:00] LABS: Hematocrit 37.3 % (37-47); Hemoglobin 11.8 g/dL (12.0-15.0); Mean Corp Hgb Conc 31.6 g/dL (32-36); Mean Corpuscular Hgb 31.6 pg (27.0-32.0); Mean Corpuscular Volume 99.7 fL (81-99); Mean Platelet Vol. 10.2 fl (6.2-12.0); Platelet Count 327 K/mm3 (150-450); RBC Distribution Width CV 13.1 % (11.6-14.6); RBC Distribution Width SD 47.8 fl (35.1-43.9); Red Blood Count 3.74 M/mm3 (4.2-5.4)
[2022-06-26 13:25] LABS: Anion Gap 2 (5-15); BUN 33 mg/dL (7-18); BUN/Creat Ratio 20.8 RATIO (10-20); Calcium,Total 8.8 mg/dL (8.5-10.1); Chloride 113 mmol/L (98-107); Creatinine, Serum 1.59 mg/dL (0.55-1.02); EST Glomerular Filtration Rate 34 mL/min (>60); Est Glom Filt Rate - Afr Amer 41 mL/min (>60); Ferritin 50 ng/mL (8-252); Glucose 92 mg/dL (74-106); Iron 60 ug/dL (50-170); Iron Binding Capacity,Total 285 ug/dL (250-450); PERCENT IRON SATURATION 21.1 % (15.0-55.0); Potassium 3.5 mmol/L (3.5-5.1); Sodium Level 138 mmol/L (136-145)
[2022-06-28] VITALS (12 sets, daily range): BP systolic 104–148; BP diastolic 57–77; PULSE 71–86; RESP 16; TEMP 36.2–37.2; O2SAT 91–99; BMI 27.1
[2022-06-28] MEDS: Lactated Ringers 1,000 ML 15 ML IV ×3 (07:56→15:01)
--- NOTE | 2022-06-28 08:35 | HP.PCM_ITS ---
History and Physical Date of Admission: 06/28/22 Visit Reasons:?Gall Bladder Chief Complaint: gall bladder Is patient in pain?: No Allergies Sulfa (Sulfonamide Antibiotics) Allergy (Verified 05/26/22 08:31) Rash Medications duloxetine 60 mg capsule,delayed release 60 mg PO DAILY pain 12/02/18 [History Confirmed 05/26/22] calcium citrate 315 mg calcium-vitamin D3 6.25 mcg (250 unit) tablet (Citracal + Vitamin D Maximum) 1 tab PO DAILY 01/21/20 [History Confirmed 05/26/22] multivitamin 1 tab PO DAILY 01/21/20 [History Confirmed 05/26/22] amlodipine 5 mg tablet 5 mg PO DAILY #30 tabs 01/23/22 [Rx Confirmed 05/26/22] potassium chloride 20 mEq tablet,extended release 10 meq PO BID 02/06/22 [History Confirmed 05/26/22] tramadol 100 mg tablet 100 mg PO BID PRN Pain 04/26/22 [History Confirmed 04/26/22] prednisone 5 mg tablet 5 mg PO DAILY 05/18/22 [History Confirmed 05/26/22] tizanidine 2 mg tablet 2 mg PO HS PRN 05/18/22 [History] PFSH Medical History? Deep vein thrombophlebitis of right leg (1965) Essential hypertension Lymphedema Osteoarthritis Varicose vein of leg Surgical History? Gluteal tendonitis of right buttock (~02/2020) History of arthroscopy of left knee (2000) History of section History of hysterectomy History of lumbar spinal fusion (~02/2021) Family History? Mother CVA (cerebral vascular accident),? Onset Age: 72 HypertensionFather Cancer ?? ? Brain AlcoholismBrother Cancer ?? ? leukemia ?? ? Atrial fibrillation Social History? Smoking Status:? Former smoker second hand exposure:? No alcohol intake:? current alcohol intake frequency: a few times a month Alcohol type: beer substance use type:? does not use caffeine:? Yes Type: coffee Number of servings: 3 HPI HPI HPI: 71-year-old female is being referred by Dr. Miguel Lowry for surgical consultation regarding cholelithiasis.? A written copy of my surgical consult recommendations will return to him.? It is of note that the patient does have a significant amount of musculoskeletal issues.? It is of note that she is on routine prednisone therapy 5 mg daily.? She has had a history of compression fracture of T9.? She has been having some left anterior costochondral margin rib pain. Back on November 25, 2021 the patient had a right upper quadrant ultrasound.? I have personally reviewed those images.? Demonstrates multiple gallstones.? I concur that the gallbladder wall did not appear to be thickened at that time I did not see any fluid.? The common bile duct measured 5.9 millimeters.? Mild diffuse hepatic steatosis. As of May 15, 2022 white blood cell count was 7.9 with a hemoglobin 11.1 hematocrit 34.5 and a platelet count of 315,000.? BUN is 31 with a creatinine of 1.91 and an estimated GFR of 27 consistent with chronic kidney disease stage IV.? Albumin level was 3.2. The patient notes that over the past week or 2 postprandially she has had discomfort in the right upper quadrant.? She states that this is distinctly different to her previous episodes of back pain. Apparently Covid-19 causes significant renal injury to her.? 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 An attempt was made to taper her prednisone from 5 mg daily to 5 mg every other day but by report that failed with a decrease in her GFR.? She is now back on 5 mg daily.? She has repeat blood work ordered for next week. The patient does have thoracic spine compression and was treated with a kyphoplasty with improvement.? She does take tramadol almost on a daily basis because of aches and pains. Her complaint newly is that about 2 to 3 hours postprandially she will get an pressure achy pain in the right subcostal area.? New bright red blood per rectum no melena.? She is not on any anticoagulants.? No fever chills or sweats. She states that she did have a colonoscopy in 2017 and that time it was normal and follow-up at 10 years recommended. ROS General General: Yes weight change and fatigue; No appetite, colon cancer, breast cancer or weakness HEENT HEENT: No difficulty swallowing, eye injury, eye surgery, swollen glands or hoarseness Endo Endocrine: No thyroid disease, diabetes mellitus, thyroid cancer, Hair loss, heat intolerance or cold intolerance Skin Skin: No rash or changing moles Musc Musculoskeletal: Yes back problems, arthritis and gout; No rheumatoid arthritis or joint pain Cardio Cardiovascular: Yes high blood pressure; No murmur, pacemaker, heart disease, atrial fibrillation, heart attack, heart stent, palpitations, shortness of breat with exertion or chest pain Psych Psychiatric: No depression, anxiety or hearing voices Resp Respiratory: No shortness of breath, No sleep apnea, No cough, No COPD, No asthma, No emphysema and No wheezing Gastro Gastrointestinal: Yes abdominal pain, No nausea or vomiting, No diarrhea, Yes constipation, No blood in stool, No acid reflux, No hemorrhoids, No ulcers, Yes gallbladder problem and No black,tarry stools Haile Hematologic: No blood thinners, No blood disorders, No bleeding, Yes anemia and No blood clots Neuro Neurologic: No system reviewed and no additional complaints, except as documented, No as per HPI, No abnormal gait, No abnormal hearing, No abnormal movements, No abnormal speech, No behavioral changes, No burning sensations, No confusion, No convulsions, No disequilibrium, No dizziness, No localized weakness, No frequent falls, No headache(s), No lack of coordination, No loss of vision, No memory loss, No numbness, No other visual disturbances, No radicular pain, No restless legs, No sensory deficit, No syncope, No tingling, No tremor(s), No weakness and No other Exam Const General: cooperative, comfortable and no acute distress Nutritional Appearance: average body habitus [facility] Head: normal to inspection Eyes General: appearance normal, both eyes and all related structures Neck Other: Mild cervical kyphosis noted. Chest Other: Significant thoracic kyphosis noted. Resp Effort & Inspection: normal respiratory effort Auscultation: clear to auscultation bilaterally Cardio Rate: regular rate Rhythm: regular rhythm GI Other: Soft, minimal discomfort right upper quadrant without mass or rebound or guarding, no liver enlargement, evidence of a well-healed infraumbilical midline incision, normal bowel sounds Musc Other: Mild cervical kyphosis Skin Other: Bilateral lower extremities have support hose on.? Claims lymphedema.? Nontender to palpation. Neuro General: patient alert, patient awake and patient oriented x3 Extrem General: no calf tenderness Other: Lower extremity edema noted with support hose in place. Psych Appearance: grossly normal Assessment and Plan Assessment and Plan (1) Cholelithiasis with chronic cholecystitis: ?Status:?Chronic ?Plan: Findings would suggest a possible over the past week or 2 that she is developing more of a symptomatic gallbladder disease.? Findings of postprandial right upper quadrant discomfort would be consistent with some chronic cholecystitis cholelithiasis.? Based upon ultrasound she does have multiple small stones. With her present I have discussed technique for laparoscopic cholecystectomy with selective cholangiography.? We have extensively discussed the technique, benefit, risk, alternatives.? No guarantees of success have been offered. Of concern is that the patient was on a prednisone taper but then had decreased GFR requiring the doses to be increased again.? This is under the care of Dr. Renetta Mary.? She is currently stage IV disease. I did have the opportunity contact Dr. Renetta Mary to discuss the patient's acute interstitial nephritis.? It is felt that she likely will need to remain on low dosing of steroids.? Dr. Renetta Mary's goal at the moment is to try to keep her off of dialysis but states that the COVID/flu assault was on top of chronic disease as well.? She does not believe at this time that she will be able to completely get her off of steroid therapy. The patient has laboratory scheduled for next week As I discussed extensively with the patient and her if her laboratory remained stable on the slightly increased dosing of prednisone from 5 mg every other day to 5 mg daily then the patient can decide whether she wants to schedule for a elective laparoscopic cholecystectomy with selective cholangiography.? Stress dose steroids would be provided. She has had an opportunity to ask and have questions answered.? We will proceed at her discretion.? I appreciate the option of assisting with her surgical care. Copy: Dr. Miguel Lowry and Dr. Renetta Huerta M.D., F.A.C.S. I have examined the patient and the H&P has been reviewed. There are no clinical changes since date of exam. Herb Huerta M.D., F.A.C.S.
--- NOTE | 2022-06-28 08:36 | DCINST_ITS ---
Discharge Instructions Procedure General Surgery Diet Discharge Diet: Light diet - advance as tolerated (if you have questions about your diet instructions, please talk to you doctor.) Activity Discharge Activity: May Not Drive (for 3-5 days or while taking narcotic pain medicine.) May shower in (days): 1 Lifting Restrictions: 10 pounds Dressing / Incision Call your doctor if your incision/area has: Continuous Slow Oozing, Sudden Increased Bleeding, Increased Pain/ Swelling, Increased Redness and Foul Smelling Discharge Call your doctor if you observe: Fever of 101 or Higher Suture Line Care: Avoid Pulling/Pushing and Avoid Pinching/Bending Additional Dressing/Incision Instructions:: Change or remove dressing in 4 days. Leave steri-strips in place for 1 week. Follow Up Care Please Follow Up With: Herb Huerta MD When: Call [phone] to make an appointment to be seen in about 10 days. Test Results: Test results from this visit will be discussed in further detail at your follow- up appointment, if applicable. Discharge Plan Admission Attending Provider: Herb Huerta Primary Care Provider: Miguel Lowry Discharge Orders/Prescriptions Prescriptions: No Action calcium citrate-vitamin D3 [Citracal + D Maximum] 315 mg-6.25 mcg (250 unit) tablet 1 tab PO DAILY multivitamin Tablet 1 tab PO DAILY duloxetine 60 MG capsule 60 mg PO DAILY potassium chloride 20 mEq tablet extended release 10 meq PO DAILY amlodipine 5 mg tablet 7.5 mg PO DAILY prednisone 5 mg tablet 5 mg PO DAILY Other Ambulatory Orders: 12 Lead EKG (Routine) Timeframe: [id number] Location: None Selected Ordered By: Dr. Herb Huerta Referrals / Follow Up: Miguel Lowry MD [Primary Care Provider] - Disposition Disposition (needs filled in before D/C Order can be placed): Home, Self Care
[2022-06-28] MEDS: Cefazolin 2 GM in 0.9% Normal Saline 100 ML IV (09:21)
[2022-06-28] MEDS: Bupivacaine 0.25% 30 ML Vial (09:28)
--- NOTE | 2022-06-28 09:35 | RAD_ITS ---
STUDY: INTRAOPERATIVE CHOLANGIOGRAM. REASON FOR EXAM: Female, 71 years old. Laparoscopic cholecystectomy. FLUOROSCOPY TIME (if supplied): ( 25.8 seconds ) minutes/seconds. 14.3 mGy TECHNIQUE: An intraoperative Cholangiogram was performed by the surgeon. Imaging was submitted. COMPARISON: None. FINDINGS: The visualized intrahepatic and extrahepatic biliary ducts are unremarkable. No intraluminal filling defect is seen. There is free flow of contrast into the duodenum. RAD/Cholangiogram/ O R,Initial IMPRESSION: Unremarkable intraoperative cholangiogram. Electronically Signed: Pedro Luis Cuadra MD at 9:12 EDT ,
--- NOTE | 2022-06-28 09:35 | GALL_PTH ---
PATIENT: MACK MAYA LOC: [facility] – [place] U#:[id number] AGE/SX: 71/F ROOM: RE06/28/[address]: Dr. Herb Huerta MD : 1950 BED: DIS: 06/28/2022 SPEC #: [id number] RECD: 06/28/22 11:19 STATUS: ROSIE GOLDSTEIN #: [id number] SHERRY: 06/28/22 09:[address]: Herb Huerta DEPT: SURGICAL PATHOLOGY RECD BY: Alice Schultz ENTERED: 06/28/22 12:25 SP TYPE: MICHELE MARTÍNEZ DR: Dr. Miguel Lowry MD Tissues: Gallbladder, NOS Procedures: Surgery Specimen Level III HEADER OPERATION: Laparoscopic cholecystectomy with IOC PRE-OP DIAGNOSIS: Cholelithiasis with chronic cholecystitis TISSUE SUBMITTED: Gallbladder MICROSCOPIC DIAGNOSIS Gallbladder, cholecystectomy: Chronic cholecystitis and cholelithiasis. AM:samuel 06/29/2022 MICROSCOPIC DESCRIPTION Slides are reviewed. GROSS DESCRIPTION Received is one container labeled with the patient's name and designated gallbladder. The specimen consists of a gallbladder measuring 8.5 x 3.0 x 2.0 cm. The external surface is smooth and glistening. Focally, it is granular, hemorrhagic and contains cautery artifact. The lumen of the gallbladder contains yellow-green mucoid bile and multiple black calculi ranging in size from <0.1 to 0.6 cm in greatest dimension. The mucosa is bile-stained and without any mass lesions. The gallbladder wall averages 0.1 cm in thickness and is free of mass lesions. Loan Assistant sections of the gallbladder and the cystic duct at margin of resection are submitted in one cassette. / AM:samuel 06/28/2022 TC:3 [facility]: [id number]
--- NOTE | 2022-06-28 10:21 | PCM.OPRPT ---
Report of Operation Date of Procedure: 06/28/22 Pre-Operative Diagnosis: Chronic cholecystitis cholelithiasis Post-Operative Diagnosis: Same Surgery/Procedure Performed:: Laparoscopic cholecystectomy with cholangiograms Description of Surgical Findings:: Timeout informed consent was obtained. 71-year-old female was taken to the operating placed by the table underwent general endotracheal intubation anesthesia. Ancef 2 g were given intravenously. The abdomen sterilely prepped and draped. 0.5% Marcaine was used as a local anesthetic. Skin sites were. Excised. A total of 30 cc was given. Because of a previous infraumbilical midline incision I made a supraumbilical vertical incision sharp dissection carried down through the subcutaneous tissue holding sutures of 0 Vicryl were placed direct access was gained through the fascia with a vertical incision identifying the peritoneum and opening that directly and then directly placing a 12 mm trocar under visualization the abdomen was insufflated with CO2 to a pressure of 10 mmHg pressure. 5 mm trocars were placed in the epigastric area and midclavicular line area and right upper quadrant lateral gallbladder was distracted blunt dissection was instituted the infundibulum until clearly the cystic duct and cystic artery were identified critical view achieved Hem-o-dirk clip was placed proximally and distally on the cystic artery prior to transecting it Hem-o-dirk clip was placed on the cystic duct and incision made in the cystic duct and through a 14-gauge Angiocath cholangiogram catheter was inserted. Fluoroscopically controlled Krant clamps were obtained demonstrating normal ductal anatomy and free flow into the small bowel. The very distal duct junction with the pancreatic duct appeared to be narrowed not clear as to whether this was due to spasm but there was flow into the duodenum. Cholangiogram catheter was removed 2 Hem-o-dirk clips were placed on the cystic duct stump prior to transecting it the gallbladder was dissected free from the liver bed small amount of bile spillage was rapidly controlled gallbladder was released placed in a retrieval bag the right upper quadrant was irrigated and aspirated free there was some bleeding from omentum that I treated with Hem-o-dirk clips and then fibula are. At the completion the abdomen was allowed to deflate several minutes went by reinflated the abdomen reinspected the liver bed found no further bleeding. Fibular was in good position. The abdomen was allowed to deflate the CO2 through an antiviral valve. The gallbladder was removed at the umbilicus. The fascia at the umbilicus was approximated with a running 0 Vicryl. Skin edges approximated opted for Monocryl subdermal stitches. Steri-Strips Telfa OpSite dressings applied. Sponge and instrument and needle counts were reported to the surgeon to be correct. Specimens gallbladder. Drains none. Blood loss 10 cc. She was taken to the recovery room in satisfactory addition without apparent complication Herb Huerta M.D., F.A.C.S. Surgeon: Hreb Huerta Anesthesiologist: Elmer Mixon
[2022-06-28] MEDS: HYDROcodone Bitartrate/Apap 5/325 Tablet PO (13:02)
== END 2022-06-28 15:58 | disposition home or self-care (01) ==
LOC: SDC 07:18 → AC 07:18
PROVIDERS: PCP Family Medicine; Referring Provider Surgery; Visit Provider Surgery
PROC: (CPT 47610; principal; 2022-06-28 09:15)
DX: K80.10 Calculus of gallbladder with chronic cholecystitis without obstruction (principal); K76.0 Fatty (change of) liver, not elsewhere classified; R07.81 Pleurodynia; Z87.891 Personal history of nicotine dependence; I10 Essential (primary) hypertension; Z86.718 Personal history of other venous thrombosis and embolism
CPT/HCPCS: 47563; 00790; 36415; 74300; 76000; 80048; 82728; 83540; 83550; 85027; 88304; 93005; J7120; J2405

== ENCOUNTER → 2022-07-11 | Outpatient (CLI) | payer MEDICARE, SELFPAY ==
[2022-07-11 13:24] LABS: Albumin, Serum 3.2 g/dL (3.2-5.0); BUN 37 mg/dL (7-18); BUN/Creat Ratio 24.5 RATIO (10-20); Calcium,Total 8.8 mg/dL (8.5-10.1); Chloride 109 mmol/L (98-107); Creatinine, Serum 1.51 mg/dL (0.55-1.02); EST Glomerular Filtration Rate 36 mL/min (>60); Est Glom Filt Rate - Afr Amer 44 mL/min (>60); Glucose 77 mg/dL (74-106); Potassium 3.8 mmol/L (3.5-5.1); Sodium Level 139 mmol/L (136-145)
== END | disposition home or self-care (01) ==
LOC: POLAB3 11:14
PROVIDERS: PCP Family Medicine; Visit Provider Internal Medicine Nephrology
DX: N10 Acute pyelonephritis (principal); D50.9 Iron deficiency anemia, unspecified
CPT/HCPCS: 36415; 80069

== ENCOUNTER 2022-07-20 12:30 | Outpatient (RCR) | payer MEDICARE, SELFPAY ==
--- NOTE | 2022-05-24 15:46 | HP.PTEVAL_ITS ---
Patient's Visit Information MACK MAYA is a 71 year old F referred to Physical Therapy by Dr. Floridalma Grant MD with a diagnosis of LUMBAR SPONDYLOSIS. Date of Evaluation: 05/24/22 Physical Therapist: Remberto Aguillon, PT, Cert MDT, OCS - Visit Plan Frequency: 2x /Week Duration: 4 Weeks Plan: PT INTERVENTIONS DLS ,POSTURAL EX'S ,HIP STRENGTHENING L> R, FUNCTIONAL STRENGTHENING AND ENDURANCE - Subjective This 71 y/o female presents to physical therapy with lumbar pain. Patient had lumbar surgery with fusion L4-5-S1 ,interbody spacer L3 lateral aspect done Mar [address] Grant . Patient developed of new pain ~ 6weeks . Patient was hospitalized for stage 6 CKF ,and currently stage 4 and had COVID. Patient pain located symmetrical lumbar no leg pain. Seen DR dagmar LAZAR showed stenosis and spondylosis. Recommended PT . Patient had PT [facility] . Patient aggravating standing /walking and unable to lifting. Alleviating factors sitting and rest and heat. Denies paresthesia/tingling. Bowel/bladder-. Patient had pr ior glut/medius repair 2015. Coughing/sneezing increasing pain. Pain is sleeping okay on left side. Patient pain affects QOL and function. Medication tramadol. SOCIAL: . VOCATION: retired - Pain Bilateral Back Pain Intensity (Out of 10): 8 Pain Intensity Range: 10 Comment: walking - Objective POSTURE: left lateral side bend slightly , foreword posture. GAIT: ambulates with lateral sway decrease stance left. NEURO: denies paresthesia/tingling ,reflexes L3-4,L4-5,L5-S1 2/3. PALAPATION: tender LA. SYMTTRIES: pelvis asymmetries. FLEXABLITY: hamstrings min tight. LUMBAR ROM: flexion WFL ,extension mod loss ,side glides mod loss. MMT: quads/hams 4/5 ,ankle 4/5 ,peak force left hip flexion 10.7 ,hip abduction 8.9 ,right 19.8 hip flexion ,hip abduction 15.2. - Special Tests L/S Slump test left side: Negative L/S Slump test right side: Negative L/S Left Straight Leg Raise: Negative L/S Right Straight Leg Raise: Negative - Balance/Special Test Scores Oswestry Low Back Score: 24 - Goals Goal 1:: Patient to be I with HEP for back Goal Time Frame: 4-6 Weeks Goal 2:: Patient to demonstrate 50% improvement with decrease pain and improve function Goal Time Frame: 4-6 Weeks Goal 3:: Patient to improve quality of gait 75% of the time with less pain and antalgic gait. Goal Time Frame: 4-6 Weeks Goal 4:: Patient to improve hip peak force by 5-10 to improve gait and function Goal Time Frame: 4-6 Weeks Goal 5:: Patient to improve back oswestry score by 5 points to improve QOL and function. Goal Time Frame: 4-6 Weeks - Rehabilitation Potential Physical Therapy Diagnosis: This patient has lumbar pain and recently 2020 had lumbar fusion with current impairments with lumbar pain worse with walking/standing ,better with sitting ,along with weakness left hip alters gait thus benefit from skilled PT Rehabilitation Potential: Good - Anticipated Interventions Patient/Client Instruction: Educate patient on: Condition, Plan of Care For the Purpose of:: To decrease pain, To increase ROM, To improve muscle performance and motor function, To increase tolerance to activity/condition/position, To improve ability of physical actions for home/community/work/leisure, To improve health of tissue, To decrease soft tissue restriction, To increase flexibility/ROM, To prevent re-injury Therapeutic Exercise to Include: Strength training, Endurance training, Body mechanics, Postural training, Flexibilty training, Dynamic Lumbar Stabilization Comment: HIP For the Purpose of:: To decrease pain, To increase ROM, To improve muscle performance and motor function, To increase tolerance to activity/condition/position, To improve ability of physical actions for home/community/work/leisure, To improve health of tissue, To decrease soft tissue restriction, To increase flexibility/ROM, To improve endurance, To improve balance, To prevent re-injury Thank you for the opportunity to evaluate your patient. For Medicare and Medicare HMO plans, please review the plan of care and approve it. It will need to be FAXED BACK to us at [phone] for Medicare purposes. For Medicare only, by signing this I certify the plan of care. Please let me know if there are questions or concerns regarding this plan of ca re. Physician Signature: Date:
--- NOTE | 2022-07-20 13:07 | HP.PTDCSUM ---
It has been my pleasure to treat MACK MAYA referred by Dr. Floridalma Grant MD, with the diagnosis of LUMBAR SPONDYLOSIS for a total of 8 visit(s). Discharge Date: 07/20/22 Please see the following information for a summary of their discharge status. Subjective: Patient had gallbladder surgery June 28 is able resume all activities Bilateral Back Pain Intensity (Out of 10): 0 % Improvement: 90 Objective/Function: POSTURE: left lateral side bend slightly , foreword posture. GAIT: ambulates with lateral sway decrease stance left. NEURO: denies paresthesia/tingling ,reflexes L3-4,L4-5,L5-S1 2/3. PALAPATION: tender LA. SYMTTRIES: pelvis asymmetries. FLEXABLITY: hamstrings min tight. LUMBAR ROM: flexion WFL ,extension mod loss ,side glides mod loss. MMT: quads/hams 4/5 ,ankle 4/5 ,peak force left hip flexion 28.8, abduction 18.9 ,right 26.8 hip flexion Goal 1:: Patient to be I with HEP for back Goal Progress: Goal Met Goal 2:: Patient to demonstrate 50% improvement with decrease pain and improve function Goal Progress: Goal Met Goal 3:: Patient to improve quality of gait 75% of the time with less pain and antalgic gait. Goal Progress: Goal Met Goal 4:: Patient to improve hip peak force by 5-10 to improve gait and function Goal Progress: Goal Met Goal 5:: Patient to improve back oswestry score by 5 points to improve QOL and function. Goal Progress: Goal Met Plan: D/C Discharge Comments: HEP AND GYM If there are questions or concerns regarding this patient's physical therapy, please feel free to call me at [phone]. Thank you for the referral of this patient. Sincerely, Remberto Aguillon, PT, Cert MDT, OCS Balance/Gait/Functional tests - Balance/Special Test Scores Oswestry Low Back Score: 3
== END 2022-07-20 19:00 | disposition home or self-care (01) ==
LOC: PT 12:30
PROVIDERS: PCP Family Medicine; Referring Provider Orthopaedic Surgery Orthopaedic Surgery of the Spine; Visit Provider Orthopaedic Surgery Orthopaedic Surgery of the Spine
DX: M47.816 Spondylosis without myelopathy or radiculopathy, lumbar region (principal)
CPT/HCPCS: 97110; 97162; 97530

== ENCOUNTER → 2022-07-24 | Outpatient (CLI) | payer MEDICARE, SELFPAY ==
[2022-07-24 13:42] LABS: Albumin, Serum 3.5 g/dL (3.2-5.0); BUN 34 mg/dL (7-18); BUN/Creat Ratio 23.4 RATIO (10-20); Chloride 105 mmol/L (98-107); Creatinine, Serum 1.45 mg/dL (0.55-1.02); EST Glomerular Filtration Rate 38 mL/min (>60); Est Glom Filt Rate - Afr Amer 46 mL/min (>60); Glucose 93 mg/dL (74-106); Phosphorus 3.4 mg/dL (2.5-4.9); Potassium 3.8 mmol/L (3.5-5.1); Sodium Level 139 mmol/L (136-145)
== END | disposition home or self-care (01) ==
LOC: POLAB3 11:17
PROVIDERS: PCP Family Medicine; Visit Provider Internal Medicine Nephrology
DX: N10 Acute pyelonephritis (principal)
CPT/HCPCS: 36415; 80069

== ENCOUNTER → 2022-08-07 | Outpatient (CLI) | payer MEDICARE, SELFPAY ==
[2022-08-07 13:22] LABS: Albumin, Serum 3.5 g/dL (3.2-5.0); BUN 37 mg/dL (7-18); BUN/Creat Ratio 25.9 RATIO (10-20); Calcium,Total 8.9 mg/dL (8.5-10.1); Chloride 106 mmol/L (98-107); Creatinine, Serum 1.43 mg/dL (0.55-1.02); EST Glomerular Filtration Rate 38 mL/min (>60); Est Glom Filt Rate - Afr Amer 46 mL/min (>60); Glucose 90 mg/dL (74-106); Phosphorus 3.5 mg/dL (2.5-4.9); Potassium 3.7 mmol/L (3.5-5.1); Sodium Level 134 mmol/L (136-145)
== END | disposition home or self-care (01) ==
LOC: LAB 08-10 06:16
PROVIDERS: PCP Family Medicine; Referring Provider Internal Medicine Nephrology; Visit Provider Internal Medicine Nephrology
DX: N10 Acute pyelonephritis (principal)
CPT/HCPCS: 36415; 80069

== ENCOUNTER → 2022-08-16 | Outpatient (CLI) | payer MEDICARE, SELFPAY ==
--- NOTE | 2022-08-16 08:42 | BD_ITS ---
STUDY: DUAL ENERGY X-RAY ABSORPTIOMETRY / DXA REASON FOR EXAM: Female, 71 years old. [id number] TECHNIQUE: Bone Mineral Density (BMD) measurements of lumbar spine and bilateral hips were obtained. COMPARISON: Comparison is made with prior study dated February 15, 2021. FINDINGS: Lumbar Spine (L1-L4): g/cm2 (0.912) / T-score (-0.6) / Z-score (1.5) Findings are suggestive of normal bone density with a low fracture risk. Left Femur Total: g/cm2 (0.713) / T-score (-1.9) / Z-score (-0.2) Left Femoral Neck: g/cm2 (0.614) / T-score (-2.1) / Z-score (-0.2) Right Femur Total: g/cm2 (0.738) / T-score (-1.7) / Z-score (0.0) Right Femoral Neck: g/cm2 (0.663) / T-score (-1.7) / Z-score (0 point) The T-Scores on the most recent prior examination were: Lumbar Spine (L1-L4): There has been improvement of bone density since the previous examination. Left Femur Total: which represents a worsening of 5.7%. Right Femur Total: which represents a worsening of 9.5%. BD/Dexa Bone Density Study IMPRESSION: The patient is considered osteopenic as outlined below according to World [employer] Organization (WHO) criteria with a high fracture risk. There has been worsening of bone density since the previous examination. Reference Information: The T-score is the number of standard deviations above or below the standard which is normal for young adults at their peak bone mineral density. The World Health Organization (WHO) interprets the T-scores as follows: Above -1 Normal bone density Between -1 and -2.5 Osteopenia Equal to / or below -2.5 Osteoporosis As a practical clinical guideline, osteopenia may be graded as follows: Mild -1 through -1.5 Moderate -1.6 through -2.0 Severe -2.1 through -2.4 The Z-score is the number of standard deviations above or below age-matched controls. A Z-score of less than -1.5 would be considered abnormal. References: 1. NIH Osteoporosis and Related Bone Diseases www osteo.org 2. International Society for Clinical Densitometry www iscd.org 3. National Osteoporosis Foundation www nof.org Electronically Signed: Pedro Luis Cuadra MD at 9:47 EDT ,
== END | disposition home or self-care (01) ==
LOC: OPBD 08:28
PROVIDERS: PCP Family Medicine; Referring Provider Family Medicine; Visit Provider Family Medicine
DX: M81.0 Age-related osteoporosis without current pathological fracture (principal)
CPT/HCPCS: 77080

== ENCOUNTER → 2022-08-22 | Outpatient (CLI) | payer MEDICARE, SELFPAY ==
[2022-08-22 12:38] LABS: Hematocrit 37.6 % (37-47); Hemoglobin 12.1 g/dL (12.0-15.0); Mean Corp Hgb Conc 32.2 g/dL (32-36); Mean Corpuscular Volume 99.5 fL (81-99); Mean Platelet Vol. 10.1 fl (6.2-12.0); Platelet Count 329 K/mm3 (150-450); RBC Distribution Width CV 13.2 % (11.6-14.6); RBC Distribution Width SD 47.8 fl (35.1-43.9); Red Blood Count 3.78 M/mm3 (4.2-5.4); White Blood Count 9.8 K/mm3 (4.4-11.0)
[2022-08-22 13:09] LABS: Albumin, Serum 3.4 g/dL (3.2-5.0); BUN 42 mg/dL (7-18); BUN/Creat Ratio 30.7 RATIO (10-20); Calcium,Total 9.1 mg/dL (8.5-10.1); Chloride 103 mmol/L (98-107); Creatinine, Serum 1.37 mg/dL (0.55-1.02); EST Glomerular Filtration Rate 40 mL/min (>60); Est Glom Filt Rate - Afr Amer 49 mL/min (>60); Glucose 95 mg/dL (74-106); Potassium 4.1 mmol/L (3.5-5.1); Sodium Level 135 mmol/L (136-145)
== END | disposition home or self-care (01) ==
LOC: LAB 12:00
PROVIDERS: PCP Family Medicine; Referring Provider Internal Medicine Nephrology; Visit Provider Internal Medicine Nephrology
DX: D50.9 Iron deficiency anemia, unspecified (principal); N10 Acute pyelonephritis
CPT/HCPCS: 36415; 80069; 85027

== ENCOUNTER → 2022-09-06 | Outpatient (CLI) | payer MEDICARE, SELFPAY ==
[2022-09-06 11:25] LABS: Hemoglobin 11.5 g/dL (12.0-15.0)
== END | disposition home or self-care (01) ==
LOC: LAB 11:04
PROVIDERS: PCP Family Medicine; Referring Provider Internal Medicine Nephrology; Visit Provider Internal Medicine Nephrology
DX: R58 Hemorrhage, not elsewhere classified (principal)
CPT/HCPCS: 36415; 85018

== ENCOUNTER → 2022-10-11 | Outpatient (CLI) | payer MEDICARE, SELFPAY ==
[2022-10-11 10:50] LABS: Hematocrit 37.3 % (37-47); Hemoglobin 12.5 g/dL (12.0-15.0); Mean Corp Hgb Conc 33.5 g/dL (32-36); Mean Corpuscular Hgb 32.4 pg (27.0-32.0); Mean Corpuscular Volume 96.6 fL (81-99); Platelet Count 306 K/mm3 (150-450); RBC Distribution Width CV 12.2 % (11.6-14.6); RBC Distribution Width SD 42.5 fl (35.1-43.9); Red Blood Count 3.86 M/mm3 (4.2-5.4); White Blood Count 7.9 K/mm3 (4.4-11.0)
[2022-10-11 11:24] LABS: Albumin, Serum 3.6 g/dL (3.2-5.0); BUN 33 mg/dL (7-18); BUN/Creat Ratio 23.7 RATIO (10-20); Calcium,Total 8.9 mg/dL (8.5-10.1); Chloride 98 mmol/L (98-107); Creatinine, Serum 1.39 mg/dL (0.55-1.02); EST Glomerular Filtration Rate 40 mL/min (>60); Est Glom Filt Rate - Afr Amer 48 mL/min (>60); Glucose 101 mg/dL (74-106); Iron Binding Capacity,Total 380 ug/dL (250-450); Potassium 4.5 mmol/L (3.5-5.1); Sodium Level 131 mmol/L (136-145)
[2022-10-11 13:11] LABS: Ferritin 27 ng/mL (8-252); Iron 106 ug/dL (50-170); PERCENT IRON SATURATION 27.9 % (15.0-55.0)
== END | disposition home or self-care (01) ==
PROVIDERS: PCP Family Medicine; Referring Provider Internal Medicine Nephrology; Visit Provider Internal Medicine Nephrology
DX: N10 Acute pyelonephritis (principal); D50.9 Iron deficiency anemia, unspecified
CPT/HCPCS: 36415; 80069; 82728; 83540; 83550; 85027

== ENCOUNTER → 2022-11-20 | Outpatient (CLI) | payer MEDICARE, SELFPAY ==
[2022-11-20 13:56] LABS: Albumin, Serum 3.3 g/dL (3.2-5.0); BUN 32 mg/dL (7-18); BUN/Creat Ratio 26.4 RATIO (10-20); Calcium,Total 8.6 mg/dL (8.5-10.1); Chloride 101 mmol/L (98-107); Creatinine, Serum 1.21 mg/dL (0.55-1.02); EST Glomerular Filtration Rate 46 mL/min (>60); Est Glom Filt Rate - Afr Amer 56 mL/min (>60); Glucose 87 mg/dL (74-106); Phosphorus 3.2 mg/dL (2.5-4.9); Potassium 3.8 mmol/L (3.5-5.1); Sodium Level 137 mmol/L (136-145)
== END | disposition home or self-care (01) ==
LOC: LAB 13:06
PROVIDERS: PCP Family Medicine; Referring Provider Internal Medicine Nephrology; Visit Provider Internal Medicine Nephrology
DX: N10 Acute pyelonephritis (principal)
CPT/HCPCS: 36415; 80069

== ENCOUNTER → 2022-12-13 | Outpatient (CLI) | payer MEDICARE, SELFPAY ==
[2022-12-13 12:10] LABS: Absolute Neutrophil Count 3.5 X10^3/uL (2.0-7.7); Basophil# 0.11 X10^3/uL; Basophil% 1.7 % (0-1); Eosinophil# 0.17 X10^3/uL; Eosinophils% 2.7 % (0-5); Hematocrit 39.9 % (37-47); Hemoglobin 12.8 g/dL (12.0-15.0); Lymphocyte % 29.7 % (19-41); Mean Corp Hgb Conc 32.1 g/dL (32-36); Mean Corpuscular Hgb 32.5 pg (27.0-32.0); Mean Corpuscular Volume 101.3 fL (81-99); Mean Platelet Vol. 10.2 fl (6.2-12.0); NRBC Flagged by Analyzer 0 % (0-5); Neutrophil % 54.7 % (47-70); Platelet Count 291 K/mm3 (150-450); RBC Distribution Width SD 49.3 fl (35.1-43.9); Red Blood Count 3.94 M/mm3 (4.2-5.4); White Blood Count 6.4 K/mm3 (4.4-11.0)
[2022-12-13 12:56] LABS: Vitamin D,25 Hydroxy 48.9 ng/mL
[2022-12-13 14:11] LABS: Anion Gap 5 (5-15); BUN 32 mg/dL (7-18); BUN/Creat Ratio 26.2 RATIO (10-20); Calcium,Total 9.2 mg/dL (8.5-10.1); Chloride 106 mmol/L (98-107); Creatinine, Serum 1.22 mg/dL (0.55-1.02); EST Glomerular Filtration Rate 46 mL/min (>60); Est Glom Filt Rate - Afr Amer 56 mL/min (>60); Glucose 88 mg/dL (74-106); Sodium Level 137 mmol/L (136-145)
== END | disposition home or self-care (01) ==
LOC: LAB 11:20
PROVIDERS: PCP Family Medicine; Referring Provider Nurse Practitioner Gerontology; Visit Provider Nurse Practitioner Gerontology
DX: R53.83 Other fatigue (principal); E55.9 Vitamin D deficiency, unspecified
CPT/HCPCS: 36415; 80048; 82306; 84443; 85025

== ENCOUNTER → 2022-12-20 | Outpatient (CLI) | payer MEDICARE, SELFPAY ==
[2022-12-20 11:01] LABS: Absolute Lymphocyte Count 1.72 X10^3/uL (0.83-4.51); Absolute Neutrophil Count 2.9 X10^3/uL (2.0-7.7); Basophil# 0.09 X10^3/uL; Basophil% 1.6 % (0-1); Eosinophils% 3.6 % (0-5); Hematocrit 40.5 % (37-47); Hemoglobin 12.7 g/dL (12.0-15.0); Lymphocyte # 1.72 X10^3/ul (0.83-4.51); Lymphocyte % 30.9 % (19-41); Mean Corp Hgb Conc 31.4 g/dL (32-36); Mean Corpuscular Hgb 31.4 pg (27.0-32.0); Mean Corpuscular Volume 100.2 fL (81-99); Mean Platelet Vol. 10.2 fl (6.2-12.0); Monocyte# 0.64 X10^3/uL; Monocyte% 11.5 % (0-10); NRBC Flagged by Analyzer 0 % (0-5); Neutrophil % 52.2 % (47-70); Platelet Count 286 K/mm3 (150-450); RBC Distribution Width SD 48.5 fl (35.1-43.9); Red Blood Count 4.04 M/mm3 (4.2-5.4); White Blood Count 5.6 K/mm3 (4.4-11.0)
[2022-12-20 11:47] LABS: AST(SGOT) 30 U/L (15-37); Alanine Aminotransfer ALT/SGPT 30 U/L (13-56); Albumin, Serum 3.5 g/dL (3.2-5.0); Alkaline Phosphatase 64 U/L (45-117); Anion Gap 5 (5-15); BUN 31 mg/dL (7-18); BUN/Creat Ratio 23.8 RATIO (10-20); Calcium,Total 8.8 mg/dL (8.5-10.1); Chloride 106 mmol/L (98-107); EST Glomerular Filtration Rate 43 mL/min (>60); Est Glom Filt Rate - Afr Amer 52 mL/min (>60); Globulin 3.4 g/dL (2.2-4.2); Glucose 96 mg/dL (74-106); Phosphorus 3.6 mg/dL (2.5-4.9); Potassium 3.9 mmol/L (3.5-5.1); Protein, Total 6.9 g/dL (6.4-8.2); Sodium Level 138 mmol/L (136-145)
== END | disposition home or self-care (01) ==
LOC: LAB 10:24
PROVIDERS: PCP Family Medicine; Referring Provider Family Medicine; Visit Provider Family Medicine
DX: R23.3 Spontaneous ecchymoses (principal); N10 Acute pyelonephritis
CPT/HCPCS: 36415; 80053; 84100; 85025; 85610; 85730

== ENCOUNTER 2023-02-23 13:00 | Outpatient (RCR) | payer MEDICARE, SELFPAY ==
--- NOTE | 2023-02-13 12:55 | HP.PTEVAL ---
Patient's Visit Information Visit Information Visit Information: MACK MAYA is a 72 year old F referred to Physical Therapy by JUAN J ACEVEDO with a diagnosis of LUMBAR SPONDYLOSIS. Date of Evaluation: 02/13/23 Physical Therapist: Nadia Campos PT, Cert MDT Visit Plan Frequency: 2-3x /Week Duration: 4-6 Weeks Plan: Neutral Spine Core Stability Exercises and Vance Hamstring Stretching to help reduce stress to the Lumbar Spine with all Daily Activities. Vance LE Strengthening. Instruction in Proper Posture Control, Body Mechanics, and Appropriate Activity Modifications. HEP Instruction. Subjective Subjective: Work/Leisure: RETIRED Present symptoms: VANCE LOW BACK PAIN. L BUTTOCK PAIN. PATIENT DENIES VANCE LE PAIN, NUMBNESS AND TINGLING. Present since: ABOUT 10 DAYS AGO Pain Scale: WORST 8/10, LEAST 0/10 Currently: 3/10 Is it getting better, worse or staying the same: STAYING THE SAME Commenced as a result of: NO APPARENT REASON Symptoms at onset: SAME Worse: TRYING TO LIFT, SOMETIMES TWISTING, WALKING, WALKING UP TALL Better: BENDING FORWARD, HEATING PAD, [place], LYING DOWN Disturbed sleep: NO Previous history/Previous treatment: LUMBAR FUSION FEB 2021 - SPACER B/T L3 L4. PT HERE AT [facility] X APPROX 3 MONTH SUMMER 2022 FOR SIMILAR PROBLEM WITH GOOD RESULT AND KEPT UP WITH THE EX'S FOR AWHILE AND THINKS SHE IS BACK BECAUSE SHE STOPPED THEM. Treatment this episode: NONE Coughing/sneezing/straining: POSITIVE Gait: TIME AND DISTANCE LIMITED BY PAIN BUT NO FALLING OR USE OF AD'S. Bowel or Bladder Dysfunction: NO Accidents: NO Unexplained weight loss: NO Imaging: NONE RECENT. OTHER: RECENTLY DX'D WITH KIDNEY DZ. L KNEE HEMIARTHROPLASTY. R HIP SX FOR TORN R GLUT MED AND MIN THEN RE-TORE MIN IN 2019. *PATIENT REPORTS SHE STARTED HAVING SOB SUNDAY. COUGH BUT NO FEVER. GOING TO SEE PCP DR. PEDRAZA TODAY* Objective Objective: Sitting/Standing Posture: SCOLIOSIS. SLOUCHED IN SITTING AND STANDING. Active Correction of posture: WORSE - INCREASES BACK PAIN. Other Observations: THIS PATIENT AMBULATES INDEP'LY INTO PT WITHOUT ANY ASSISTIVE DEVICES WITH A Trendelenburg gait. NO LOB Sensory deficit: VANCE LE LIGHT TOUCH SENSATION GROSSLY INTACT AND SYMMETRICAL ROM deficit: VANCE LE HS TIGHTNESS Motor deficit: R HIP 3+/5, KNEE 4/5, ANKLE 5/5. L HIP 4/5, KNEE 4/5, ANKLE 5/5. L HIP TESTING INCREASES C/O L LB PAIN. Reflexes: UNABLE TO ELICIT VANCE LE'S. Dural Signs: NEGATIVE VANCE LE'S. Lumbar mvmt loss: flex - NIL ext - VARINDER R SG - VARINDER L SG - MOD Core strength: POOR Palpation: TENDERNESS WITH PALPATION OF L LUMBAR PARASPINAL REGION. TREATMENT: NEUROMUSCULAR REEDUCATION - RETRAINING OF MVMT AND POSTURE FOR SITTING, LYING AND STANDING ACTIVITIES Balance/Special Test Scores Oswestry Low Back Score: 13 Goals Goal 1:: DECREASE C/O LOW BACK PAIN BY AT LEAST 20% TO EASE ADL'S. Goal Time Frame: 4-6 Weeks Goal 2:: PATIENT WILL BE ABLE TO MAINTAIN ERECT POSTURE IN SITTING, STANDING AND WALKING DURING PT SESSION TO DEMONSTRATE IMPROVED STRENGTH. Goal Time Frame: 4-6 Weeks Goal 3:: Patient will have increased BLE and core strength increased by 1/2 grade of all effected musculature. Goal Time Frame: 4-6 Weeks Goal 4:: PATIENT WILL BE INDEP WITH A HEP FOR CONTINUED IMPROVEMENT ONCE FORMAL PHYSICAL THERAPY CONCLUDES Goal Time Frame: 4-6 Weeks Rehabilitation Potential Physical Therapy Diagnosis: LOW BACK PAIN. CORE AND LE WEAKNESS. TRUNK STIFFNESS. Rehabilitation Potential: Good Anticipated Interventions Patient/Client Instruction: Educate patient on: Condition, Plan of Care and Risk Factors For the Purpose of:: To improve self management Therapeutic Exercise to Include: Strength training, Body mechanics, Postural training, Flexibilty training, Neuromotor development and Dynamic Lumbar Stabilization For the Purpose of:: To decrease pain, To increase ROM, To improve muscle performance and motor function, To increase tolerance to activity/condition/position, To improve ability of physical actions for home/community/work/leisure and To improve gait and locomotor functions Thermo therapy (hot pack): Yes Ultrasound (thermal/non thermal): Yes For the Purpose of:: To decrease pain and To improve nutrient delivery to tissue Text: Thank you for the opportunity to evaluate your patient. For Medicare and Medicare HMO plans, please review the plan of care and approve it. It will need to be FAXED BACK to us at [phone] for Medicare purposes. For Medicare only, by signing this I certify the plan of care. Please let me know if there are questions or concerns regarding this plan of care. Physician Signature: Date:
[2023-02-13 17:42] LABS: Absolute Lymphocyte Count 2.14 X10^3/uL (0.83-4.51); Absolute Neutrophil Count 3.7 X10^3/uL (2.0-7.7); Basophil# 0.08 X10^3/uL; Basophil% 1.2 % (0-1); Eosinophil# 0.24 X10^3/uL; Eosinophils% 3.6 % (0-5); Hematocrit 37.9 % (37-47); Hemoglobin 12.1 g/dL (12.0-15.0); Lymphocyte # 2.14 X10^3/ul (0.83-4.51); Lymphocyte % 31.7 % (19-41); Mean Corp Hgb Conc 31.9 g/dL (32-36); Mean Corpuscular Hgb 31.5 pg (27.0-32.0); Mean Corpuscular Volume 98.7 fL (81-99); Mean Platelet Vol. 10.5 fl (6.2-12.0); Monocyte# 0.62 X10^3/uL; Monocyte% 9.2 % (0-10); NRBC Flagged by Analyzer 0 % (0-5); Neutrophil # 3.66 X10^3/uL (2.7-7.7); Neutrophil % 54.2 % (47-70); Platelet Count 289 K/mm3 (150-450); RBC Distribution Width CV 12.3 % (11.6-14.6); RBC Distribution Width SD 44.8 fl (35.1-43.9); Red Blood Count 3.84 M/mm3 (4.2-5.4); White Blood Count 6.8 K/mm3 (4.4-11.0)
[2023-02-13 18:39] LABS: ALB/GLOB Ratio 1.2 RATIO (0.9-2.4); AST(SGOT) 25 U/L (15-37); Alanine Aminotransfer ALT/SGPT 22 U/L (13-56); Albumin, Serum 3.5 g/dL (3.2-5.0); Alkaline Phosphatase 60 U/L (45-117); Anion Gap 8 (5-15); BUN 27 mg/dL (7-18); Calcium,Total 8.3 mg/dL (8.5-10.1); Chloride 102 mmol/L (98-107); Creatinine, Serum 1.35 mg/dL (0.55-1.02); EST Glomerular Filtration Rate 41 mL/min (>60); Est Glom Filt Rate - Afr Amer 49 mL/min (>60); Glucose 81 mg/dL (74-106); Potassium 3.6 mmol/L (3.5-5.1); Protein, Total 6.5 g/dL (6.4-8.2); Sodium Level 137 mmol/L (136-145)
--- NOTE | 2023-03-22 08:29 | HP.PTDCNRP_ITS ---
Patient Information Patient Information: MACK MAYA was seen in my office for initial evaluation on 02/13/23. The following Plan of Care was established for this patient: POC Established Initial Frequency: 2-3x /Week Initial Duration: 4-6 Weeks Anticipated Interventions Patient/Client Instruction: Educate patient on: Condition, Plan of Care and Risk Factors For the Purpose of:: To improve self management Therapeutic Exercise to Include: Strength training, Body mechanics, Postural training, Flexibilty training, Neuromotor development and Dynamic Lumbar Stabilization For the Purpose of:: To decrease pain, To increase ROM, To improve muscle performance and motor function, To increase tolerance to activity/conditio n/position, To improve ability of physical actions for home/community/work/leisure and To improve gait and locomotor functions Thermo therapy (hot pack): Yes Ultrasound (thermal/non thermal): Yes For the Purpose of:: To decrease pain and To improve nutrient delivery to tissue Last Seen Last Seen: This patient was last seen in our office . Pertinent comments regarding their Physical therapy will appear below: THIS PT REC'D A NOTE STATING PATIENT IS HAVING SURGERY AT THE END OF THE MONTH SO SHE CANCELLED ALL REMAINING PRISCILLA'TS. At this point I will be discontinuing this patient from physical therapy. I would be happy to see this patient again in the future if found appropriate by the physician. Thank you! Nadia Campos, PT, Cert MDT Balance/Gait/Functional tests Balance/Special Test Scores Oswestry Low Back Score: 13
== END 2023-02-23 19:00 | disposition home or self-care (01) ==
LOC: PT 13:00
PROVIDERS: Family Medicine; PCP Family Medicine
DX: M47.816 Spondylosis without myelopathy or radiculopathy, lumbar region (principal)
CPT/HCPCS: 36415; 80053; 85025; 97110; 97112; 97162

== ENCOUNTER → 2023-03-07 | Outpatient (CLI) | payer MEDICARE, SELFPAY ==
[2023-03-07 11:53] LABS: Albumin, Serum 3.5 g/dL (3.2-5.0); BUN 34 mg/dL (7-18); BUN/Creat Ratio 25.8 RATIO (10-20); Calcium,Total 9.3 mg/dL (8.5-10.1); Chloride 107 mmol/L (98-107); Creatinine, Serum 1.32 mg/dL (0.55-1.02); EST Glomerular Filtration Rate 42 mL/min (>60); Est Glom Filt Rate - Afr Amer 51 mL/min (>60); Glucose 95 mg/dL (74-106); Phosphorus 3.9 mg/dL (2.5-4.9); Potassium 3.9 mmol/L (3.5-5.1); Sodium Level 138 mmol/L (136-145)
== END | disposition home or self-care (01) ==
PROVIDERS: PCP Family Medicine; Referring Provider Internal Medicine Nephrology; Visit Provider Internal Medicine Nephrology
DX: N10 Acute pyelonephritis (principal)
CPT/HCPCS: 36415; 80069

== ENCOUNTER → 2023-05-02 | Outpatient (CLI) | payer MEDICARE, SELFPAY ==
[2023-05-02 13:08] LABS: Albumin, Serum 3.2 g/dL (3.2-5.0); BUN 35 mg/dL (7-18); BUN/Creat Ratio 26.3 RATIO (10-20); Chloride 105 mmol/L (98-107); Creatinine, Serum 1.33 mg/dL (0.55-1.02); EST Glomerular Filtration Rate 42 mL/min (>60); Est Glom Filt Rate - Afr Amer 50 mL/min (>60); Glucose 74 mg/dL (74-106); Phosphorus 3.7 mg/dL (2.5-4.9); Potassium 4.5 mmol/L (3.5-5.1); Sodium Level 139 mmol/L (136-145)
--- OUTSIDE RECORDS SUMMARY | 2023-05-02 21:36 | XMS RPT_ITS | CCD ---
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 Malachi Lowry Attending August[place] shruthi Lawton, Dr. Malachi Sanchez Primary Care Unavailab ginna Lawton, Dr. Malachi Sanchez Primary Care Unavailab ginna Grant, Dr. Floridalma Houser Attending Unavailab ginna Grant, Dr. Floridalma Houser Attending Unavailab ginna Lawton, Dr. Malachi Sanchez Primary Care Unavailab ginna Grant, Dr. Floridalma Houser Attending Unavailab ginna Lawton, Dr. Malachi Sanchez Primary Care Unavailab ginna Lawton, Dr. Malachi Sanchez Primary Care Unavailab ginna Grant, Dr. Floridalma Houser Attending Unavailab ginna Lawton, Dr. Malachi Sanchez Primary Care Unavailab ginna Grant, Dr. Floridalma Houser Attending MALACHI Lloyd Primary Care Unavailable KYRA RAMIREZ II Attending Malachi Lucas Primary Care Provider Allergies Allergy Classification Reported Allergen(s) Allergy Type Date of Onset Reaction(s) Facility (1 source) Sulfonamides (Antibiotic); Translations: [sulfa drugs] Propensity to adverse reactions to drug (disorder) [facility] (2 sources) Sulfonamides (Antibiotic) Propensity to adverse reactions to drug 0 [place], [place] (1 source) Sulfacetamide Drug Allergy 6 toni [facility] Work Phone: (2 sources) Sulfonamides (Antibiotic); Translations: [SULFA (SULFONAMIDE ANTIBIOTICS)] Propensity to adverse reactions to drug (disorder) 5 [facility] Repository Medications Completed/Discontinued Medications Medication Drug Class(es) Dates Sig (Normalized) Sig (Original) acetaminophen 500 mg oral tablet (1 source) Start: 12-02-2019 acetaminophen (TYLENOL) 500 mg tablet Take by mouth. 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 (1 source) Vascular disorder; Translations: [Embolism and thrombosis of unspecified artery] Onset: 02-01-2005 02-01-2005 Chronic Blindness and vision defects (4 sources) Bilateral regular astigmatism; Translations: [Regular astigmatism, bilateral] Onset: 08-05-2015 Episodic Cataract (3 sources) Bilateral pseudophakia; Translations: [Presence of intraocular lens] Onset: 08-05-2015 Chronic Nonspecific chest pain (4 sources) Other chest pain; Translations: [Other chest pain] Onset: 03-27-2022 Episodic Other bone disease and musculoskeletal deformities (1 source) Osteopenia; Translations: [Other specified disorders of bone density and structure, unspecified site] Onset: 02-16-2021 02-16-2021 Episodic Other congenital anomalies (1 source) Hereditary lymphedema; Translations: [Hereditary lymphedema] Onset: 01-09-2005 01-09-2005 Chronic Other eye disorders (2 sources) Alternating esotropia; Translations: [Alternating esotropia with other noncomitancies] Onset: 08-05-2015 Episodic Other nervous system disorders (1 source) Piriformis syndrome; Translations: [Lesion of sciatic nerve, right lower limb] Onset: 01-31-2017 01-31-2017 Chronic Other nervous system disorders (12 sources) Abnormal gait; Translations: [Abnormality of gait] Episodic Retinal detachments; defects; vascular occlusion; and retinopathy (4 sources) Bilateral drusen of maculae; Translations: [Drusen (degenerative) of macula, bilateral] Onset: 08-05-2015 Chronic Spondylosis; intervertebral disc disorders; other back problems (3 sources) Lumbar spondylosis; Translations: [Spondylosis without myelopathy or radiculopathy, lumbar region] Onset: 10-31-2016 01-10-2021 Chronic Sprains and strains (13 sources) Strain of muscle and/or tendon of thigh; Translations: [Sprains and strains of other specified sites of hip and thigh] Onset: 12-02-2019 12-02-2019 Episodic Past or Other Problems Problem Classification Problem Date Documented Date Episodic/Chronic Inflammation; infection of eye (except that caused by tuberculosis or sexually transmitteddisease) (1 source) Keratitis; Translations: [Other keratitis] Onset: 10-12-2017 10-12-2017 Episodic Other acquired deformities (1 source) Lumbar spondylolisthesis; Translations: [Spondylolisthesis, lumbar region] Onset: 01-10-2021 01-10-2021 Episodic Other connective tissue disease (1 source) Disorder of tendon; Translations: [Unspecified disorder of synovium and tendon, left thigh] Onset: 07-04-2019 07-04-2019 Episodic Other connective tissue disease (1 source) Hamstring injury; Translations: [Other specified enthesopathies of unspecified lower limb, excluding foot] Onset: 07-04-2019 07-04-2019 Episodic Other connective tissue disease (1 source) Gluteal tendinitis; Translations: [Unspecified disorder of synovium and tendon, other site] Onset: 01-04-2016 01-04-2016 Episodic Other connective tissue disease (1 source) Trochanteric bursitis, right hip; Translations: [Enthesopathy of hip region] Onset: 01-04-2016 01-04-2016 Episodic Other eye disorders (1 source) Bilateral senile ectropion of lower eyelids; Translations: [Senile ectropion of right lower eyelid] Onset: 10-18-2017 10-18-2017 Episodic Spondylosis; intervertebral disc disorders; other back problems (20 sources) Sacroiliac joint pain; Translations: [Disorders of sacrum] Onset: 11-30-2016 02-16-2021 Episodic Unclassified (1 source) Problem Results Test Name Value Interpretation Reference Range Facil ity Vital Signs Date Time Vital Sign Value Performing Clinician Facility 10-06-2019 11:55-0400 BP Diastolic 98 mm[Hg] Abdirahman Toribio [facility] , [place] 10-06-2019 11:55-0400 BP Systolic 157 mm[Hg] Abdirahman [facility] , [place] 10-06-2019 10:49-0400 Pulse (Heart Rate) 85 /min Abdirahman Toribio [facility], [place] 10-06-2019 10:49-0400 Pulse Oximetry 100 % Abdirahman [facility] TH[facility] NEGATED: Highlighted [id number] 11:19-0500 Body height 158.75 cm Clare Reyes [facility] Work Phone: NEGATED: Highlighted [id number] 11:19-0500 Body height 159 cm Clare Reyes BRAND ATTENDANT [facility] Work Phone: NEGATED: Highlighted [id number] 11:19-0500 Body mass index (BMI) [Ratio] 28.54 kg/m2 Clare Reyes BRAND ATTENDANT [facility] Work Phone: NEGATED: Highlighted [id number] 11:19-0500 Body weight 71.67 kg Clare Reyes BRAND ATTENDANT [facility] Work Phone: NEGATED: Highlighted [id number] 11:19-0500 Body weight 72 kg Clare Reyes BRAND ATTENDANT [facility] Work Phone: Encounters Encounter Date Encounter Type Care Provider Facility Start: 06-21-2022 End: 06-21-2022 [facility] Start: 06-21-2022 End: 06-21-2022 Patient encounter procedure Kyra Ramirez OD Work Phone: Optometry Procedures Date Procedure Procedure Detail Performing Clinician Start: 06-21-2022 Computerized ophthal johnson imaging retina Kyra Ramirez OD Work Phone: Start: 04-25-2021 End: 04-25-2021 BP scrn no perf at interval Floridalma Grant MD Work Phone: Start: 04-25-2021 End: 04-25-2021 Calc BMI abv up janel f/u Floridalma leavitt MD Work Phone: Start: 04-25-2021 End: 04-25-2021 Current tobacco non-user cad cap copd pv dm Floridalma Grant MD Work Phone: Start: 04-25-2021 End: 04-25-2021 Docrev cur meds by elig clin Floridalma Grant MD Work Phone: Start: 04-25-2021 End: 04-25-2021 No doc of pain Floridalma Grant MD Work Phone: Start: 04-25-2021 End: 04-25-2021 Patient encounter procedure Floridalma Grant MD Work Phone: Start: 10-06-2019 CT INJ EPIDUR LUMB/S AC 1 LEV LT Abdirahman Toribio Work Phone: Start: 09-24-2019 Arthrocentesis aspir &/inj major jt/bursa w/o us Abdirahman Toribio Work Phone: NEGATED: Highlighted rowStart: 04-25-2021 End: 04-25-2021 Documentation of current medications Clare Reyes LPN Plan of Treatment Date Care Activity Detail Author Start: 02-21-2028 DTaP/Tdap/Td vaccine (2 - Td) DTaP/Tdap/Td vaccine (2 - Td) [place] Start: 03-05-2022 ADVANCE DIRECTIVE DISCUSSION ADVANCE DIRECTIVE DISCUSSION [facility] Start: 03-05-2022 DEPRESSION ASSESSMENT DEPRESSION ASSESSMENT [facility] Start: 10-13-2021 [email or web address], Provider: Forest Garland, Status: Pen, Time: 11:15 AM [email or web address], Provider: Forest Garland, Status: Amauri, Time: 11:15 AM [facility] Work Phone: Start: 10-06-2021 COVID-19 VACCINE (5 - Booster for Moderna series) COVID-19 VACCINE (5 - Booster for Moderna series) [facility] Start: 10-06-2021 [email or web address], Provider: Forest Garland, Status: Pen, Time: 10:45 AM PTFUADULT4, Provider: Forest Garland, Status: Pen, Time: 10:45 AM [facility] Work Phone: Start: 10-04-2021 [email or web address], Provider: Dion Urbina, Status: Pen, Time: 9:15 AM PTFUADULT4, Provider: Dion Urbina, Status: Pen, Time: 9:15 AM [facility] Work Phone: Start: 04-25-2021 End: 04-25-2021 Patient encounter procedure Appointment [facility] Work Phone: Start: 12-03-2020 PTRECHECKA, Provider: Vidhi Barker, Status: Pen, Time: 9:15 AM PTRECHECKA, Provider: Vidhi Barker, Status: Pen, Time: 9:15 AM [facility] Work Phone: Start: 11-26-2020 [email or web address], Provider: Bing Park, Status: Pen, Time: 9:15 AM PTFUADULT4, Provider: Bing Park, Status: Pen, Time: 9:15 AM [facility] Work Phone: Start: 11-19-2020 [email or web address], Provider: Bing Park, Status: Pen, Time: 9:15 AM PTFUADULT4, Provider: Bing Park, Status: Pen, Time: 9:15 AM [facility] Work Phone: Start: 11-12-2020 PTFUADULT4, Provider: Bing Park, Status: Pen, Time: 9:15 AM PTFUADULT4, Provider: Bing Park, Status: Pen, Time: 9:15 AM [facility]: Start: 11-05-2020 [email or web address], Provider: Merline Weller, Status: Pen, Time: 9:15 AM PTFUADULT4, Provider: Merline Weller, Status: Pen, Time: 9:15 AM [facility] Work [facility]: Start: 11-01-2020 [email or web address], Provider: Merline Weller, Status: Pen, Time: 10:00 AM PTFUADULT4, Provider: Merline Weller, Status: Pen, Time: 10:00 AM [facility] Work [facility]: Start: 10-29-2020 [email or web address], Provider: Vidhi Barker, Status: Pen, Time: 10:30 AM PTFUADULT4, Provider: Vidhi Barker, Status: Pen, Time: 10:30 AM [facility] Work Phone: Start: 11-04-2019 Influenza vaccination Flu vaccine (#1) [place], [place] Start: 10-14-2014 Shingles Vaccine (2 of 3) Shingles Vaccine (2 of 3) [place] Start: 2014 BONE DENSITY BONE DENSITY [facility] Start: 2014 Pneumococcal 65+ years Vaccine (1 of 1 - PPSV23) Pneumococcal 65+ years Vaccine (1 of 1 - PPSV23) [place] Start: 2014 Pneumococcal 65+ years Vaccine (2 of 2 - PPSV23) Pneumococcal 65+ years Vaccine (2 of 2 - PPSV23) [place] Start: 2014 PNEUMOCOCCAL: 65+ (1 - PCV) PNEUMOCOCCAL: 65+ (1 - PCV) [facility] Start: 2004 Screening for osteoporosis DEXA (modify frequency per FRAX score) [place] Start: 09-15-1999 Screening for malignant neoplasm of breast Breast cancer screen [place] Start: 09-15-1999 Screening for malignant neoplasm of colon Colon cancer screen colonoscopy [place] Start: 09-15-1999 Shingles Vaccine (1 of 2) Shingles Vaccine (1 of 2) [place] Start: 09-15-1999 SHINGRIX VACCINE (1 of 2) SHINGRIX VACCINE (1 of 2) [facility] Start: 1994 COLOGUARD (FIT-DNA) COLOGUARD (FIT-DNA) [facility] Start: 1994 Colonoscopy COLONOSCOPY [facility] Start: 1994 COLORECTAL CANCER SCREENING COLORECTAL CANCER SCREENING [facility] Start: [address] COLONOGRAPHY [facility] Start: 1994 DIABETES SCREEN DIABETES SCREEN [facility] Start: 1994 FECAL OCCULT BLOOD FECAL OCCULT BLOOD [facility] Start: 1994 LIPID SCREEN LIPID SCREEN [facility] Start: 1994 SIGMOIDOSCOPY SIGMOIDOSCOPY [facility] Start: 1989 Lipid panel Lipid screen [place], [place] Start: 1989 Mammography MAMMOGRAM [facility] Start: 1968 DTaP/Tdap/Td vaccine (1 - Tdap) DTaP/Tdap/Td vaccine (1 - Tdap) [place], [place] Start: 1968 Urine microalbumin profile DTAP,TDAP,TD (1 - Tdap) [facility] Start: 09-15-1967 HEPATITIS C SCREENING HEPATITIS C SCREENING [facility] Start: 1949 Creatinine measurement Creatinine monitoring [place], [place] Start: 1949 Hepatitis C screening Hepatitis C screen [place], [place] Start: 1949 Potassium monitoring Potassium monitoring [place], [place] Payers Date Payer Category Payer Unknown 2015 Unknown [id number] 1950 Unknown [id number] [id number] [id number] 1949 Unknown [id number] [id number] 1949 Unknown [id number] [id number] [id number] 1949 Unknown [id number] [id number] [id number] 1949 Unknown [id number] 2.16.8 [id number] 1949 Unknown [id number] [id number] [id number] Social History Date Type Detail [facility] [employer] Start: 1950 Sex Assigned At Not on file [employer] Start: 04-25-2021 End: 04-25-2021 Tobacco smoking status [facility] Unknown if ever smoked [employer] Start: 06-21-2022 Tobacco smoking stat [facility] Ex-smoker [facility] End: 01-09-1993 History of tobacco use Current smoker [facility] End: 01-09-1993 History of tobacco use Cigarette Smoker [facility] Start: 06-21-2022 Tobacco use and exposure Smokeless tobacco non-user [facility] Start: 06-21-2022 Alcohol intake Current drinke r of alcohol (finding) [facility] Start: 02-13-2019 Alcohol Comment [facility] Clinical Notes 06-21-2022 Patient InstructionsKyra Ramirez II, OD - 06/21/2022 4:59 PM EDT Note Date & Type Note Facility 06-21-2022 Note HNO ID: [id number] Author: Kyra Ramirez II, REMY Service: ? Author Type: TELECOM SALES CONSULTANT Type: Progress Notes Filed: 06/21/2022 5:02 PM Note Text: Assessment and Plan H35.363 Macular drusen, bilateral (primary encounter diagnosis) H35.3131 Nonexudative age-related macular degeneration, bilateral, early dry stage Comment: AREDS 2 supplementation stopped by sports anchor but still taking multivitamin. Warnings regarding the transformation from dry to the wet form of macular degeneration were discussed with patient. Recheck in 1 year or sooner if changes noted. Z96.1 Pseudophakia, both eyes Comment: Posterior chamber intraocular lenses are well positioned and clear. 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 H52.223 Regular astigmatism of both eyes H52.13 Myopia, bilateral Comment: Small shift in glasses power demonstrated to patient. Update glasses as desired. I have confirmed and edited as necessary the relevant ophthalmic history, ROS, and the neuro exam findings as obtained by others. I have seen and examined Ivonne Maya. I have discussed the case and the management of this patient's care with the Resident/Fellow, if applicable. I also have reviewed and agree with the assessment and plan as stated above and agree with all of its relevant components. Kyra Ramirez II, OD [facility] 06-21-2022 Instructions Kyra Ramirez II, OD - 06/21/2022 5:02 PM EDT Assessment and Plan H35.363 Macular drusen, bilateral (primary encounter diagnosis) H35.3131 Nonexudative age-related macular degeneration, bilateral, early dry stage Comment: AREDS 2 supplementation stopped by sports anchor but still taking multivitamin. Warnings regarding the transformation from dry to the wet form of macular degeneration were discussed with patient. Recheck in 1 year or sooner if changes noted. Z96.1 Pseudophakia, both eyes Comment: Posterior chamber intraocular lenses are well positioned and clear. 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 H52.223 Regular astigmatism of both eyes H52.13 Myopia, bilateral Comment: Small shift in glasses power demonstrated to patient. Update glasses as desired. I have confirmed and edited as necessary the relevant ophthalmic history, ROS, and the neuro exam findings as obtained by others. I have seen and examined Ivonne Maya. I have discussed the case and the management of this patient's care with the Resident/Fellow, if applicable. I also have reviewed and agree with the assessment and plan as stated above and agree with all of its relevant components. Kyra Ramirez II, OD documented in this encounter [facility] 06-21-2022 History of Present illness Narrative Assessment and Plan H35.363 Macular drusen, bilateral (primary encounter diagnosis) H35.3131 Nonexudative age-related macular degeneration, bilateral, early dry stage Comment: AREDS 2 supplementation stopped by sports anchor but still taking multivitamin. Warnings regarding the transformation from dry to the wet form of macular degeneration were discussed with patient. Recheck in 1 year or sooner if changes noted. Z96.1 Pseudophakia, both eyes Comment: Posterior chamber intraocular lenses are well positioned and clear. 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 H52.223 Regular astigmatism of both eyes H52.13 Myopia, bilateral Comment: Small shift in glasses power demonstrated to patient. Update glasses as desired. I have confirmed and edited as necessary the relevant ophthalmic history, ROS, and the neuro exam findings as obtained by others. I have seen and examined Ivonne Maya. I have discussed the case and the management of this patient's care with the Resident/Fellow, if applicable. I also have reviewed and agree with the assessment and plan as stated above and agree with all of its relevant components. Kyra Ramirez II, OD documented in this encounter [facility] Evaluation note There may be informa tion available, but it has not been provided by the sender. [facility] Work Phone: documented in this encounter [facility]* Ms. MAYA presents with signs and symptoms consistent with and demonstrates impairments/limitations in . They would benefit from skilled Physical Therapy with combination of manual therapy techniques to decrease myofascial and joint restrictions, as well as progression of exercises for ROM, flexibility, strength, core stabilization, and glute retraining, and body mechanics education throughout POC to progress towards independence with ADL s/IADL s and return to PLOF. * Clinical Presentation: Stable and/or uncomplicated characteristics. * Level of Complexity: low * Problem List: activity limitations, ADLs/IADLs/self care skills, decreased functional level, fall risk, flexibility, motor function/control/tone, pain, participation restrictions, posture, range of motion/joint mobility and strength. [facility] Work Phone: History of Present illness Narrative* Ms. MAYA presents with signs and symptoms consistent with SI Joint Pain and Left Hip Pain and demonstrates impairments/limitations in Lumbar AROM as well as Left hip mobility due to pain in Left posterior SI and Hip region. Difficulty assessing if symptoms are more related to lumbar spine/SI joint or Left hip joint, but appears to be a combination of regions with significant musculature involvement of Left hip musculature. Due to history of multiple procedures done to Right hip musculature, pt appears to have been compensating with LLE, contributing to symptoms more acutely in LLE. Pt has gait deficits including B/L trendlenberg and instability with lateral trunk lean and antalgic gait no paulino. Pt with significant point tenderness in Left piriformis as well as Glute med/Max and some restriction in Left hip flexor and QL as well. Tolerated manual techniques performed after initial evaluation well this date, but did have some difficulty with positioning for hip flexor and piriformis/glute stretches added to HEP. Pt reported good understanding of all edu and HEP with HO given. They would benefit from skilled Physical Therapy with combination of manual therapy techniques to decrease myofascial and joint restrictions, as well as progression of exercises for ROM, flexibility, strength, core stabilization, and glute retraining, and body mechanics education throughout POC to progresstowards independence with ADL s/IADL s and return to PLOF. * Clinical Presentation: Evolving with changing characteristics. * Level of Complexity: low * Problem List: activity limitations, ADLs/IADLs/self care skills, decreased functional level, fall risk, flexibility, motor function/control/tone, pain, participation restrictions, posture, range of motion/joint mobility, strength and transfers. [facility] Work Phone: History of Present illness Narrative* Pt confirmed via and Full Name. * Verbally reviewed HEP at start of session with good compliance so far since evaluation. Pt able to initiate some ther-ex this date with good tolerance but some minimal catching in Left hip with last 30 sec on rec bike. Improved after hip flexor and ADD stretches this date. [facility] Work Phone: History of Present illness NarrativePatient was identified by name and date. IASTM/STM completed to reduce soft tissue restrictions at L hip musculature including IT band. Checked pelvic symmetry and no intervention needed. Instructed and completed pelvic floor exercises to add to her HEP. Handout unavailable and will be given next session. Patient voiced good understanding. Completed all new additions to her program without c/o. [facility] Work Phone: History of Present illness NarrativePatient identified by name and date of . Patient presented with pelvic malalignment that responded well to MET. She was able to progress with kegels and reviewed progression of HEP. Reviewed sleeping positions, she demonstrated good understanding. She presented with tension in gluts that responded well [facility] Work Phone: History of Present illness NarrativePatient identified by name and date of . Patient presented with pelvic malalignment that responded well to STW. She demonstrated good understanding with kegels and review of HEP. She presented with tension in hip flexors, gluts, and IT band with STW.[facility] Work Phone: History of Present illness NarrativePatient identified by name and date of . Patient presented with pelvic malalignment that responded well to MET. She was able to progress with kegels and reviewed progression of HEP. Reviewed sleeping positions, she demonstrated good understanding. She presented with tension in gluts that responded well to STW. [facility] Work Phone: History of Present illness Narrative* S/P lumbar fusion last February. Recent onset of LLE weakness and RLBP and R butt sx. No recent testing was done. The patient hopes to get back to golfing. Physical findings include LLE myotome weakness and trunk ROM limitation. Golf swing mech were reviewed to reduce trunk torsion. Continue with core stability and trunk mech trng. STW and/or pool unloading maybe pursued PRN. * Clinical Presentation: Stable and/or uncomplicated characteristics. * Level of Complexity: low * Problem List: activity limitations, ADLs/IADLs/self care skills, decreased functional level, decreased knowledge of HEP, decreased knowledge of precautions, gait/locomotion, pain, range of motion/joint mobility, strength and transfers. [facility] Work Phone: Hisebxh of Present illness Narrative* Patient identity confirmed today with name/. the patient motions to the [facility] area as the presentarea of sx;. * Clinical Presentation: Stable and/or uncomplicated characteristics. * Level of Complexity: low * Problem List: activity limitations, ADLs/IADLs/self care skills, decreased functional level, decreased knowledge of HEP, decreased knowledge of precautions, gait/locomotion, pain, range of motion/joint mobility, strength and transfers. [facility] Work Phone: History of Present illness Narrative* Patient motivated to progress. Added ex's for core strengthening/stability with good tolerance and response. Patient voices compliance with current HEP. * Response to treatment: decreased pain, improved flexibility, improved posture and improved knowledge and understanding of condition. * Patient was able to complete today's treatment with some difficulty. [facility] Work Phone: history of Present illness Narrative* Patient identity confirmed today with name/. the patient seems to be walking more upright today;see goals; good ADL and strength gains; added to HEP and given handout. * Response to treatment: decreased pain, improved flexibility, improved posture and improved knowledge and understanding of condition. * Patient was able to complete today's treatment with some difficulty. [facility] Work Phone: Instructions* Instruction Description Start Date Patient advised to follow-up with Primary Care Physician for BMI management. [facility] Work Phone: Reason for visit Narrative* Initial Evaluation . SI Joint Pain and Left Hip Pain. * Referred by: Abdirahman Toribio. [facility] Work Phone: reason for visit Narrative* Initial Evaluation . SI Joint Pain and Left Hip Pain. * Referred by: Abdirahman Toribio. [facility] Work Phone: Reason for visit Narrative* Initial Evaluation . lumbar stenosis. * Referred by: Laura Grant MD [facility] Work Phone: Reason for visit Narrative* Initial Evaluation . lumbar stenosis. 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 A bursa is a small sac of fluid that cushions an area between tendons and bones. The bursa on the outer side of the hip bone is called the trochanteric (say UONT-[id number]-ik ) bursa. Sometimes it can become swollen and painful. This condition is called bursitis. An injection into the bursa is a shot of medicine to reduce pain and swelling. The medicines may include pain relievers and steroid medicines. A steroid shot can sometimes help with short-term pain relief when other treatments haven't worked. How is a hip bursa injection done? First the area over the bursa will be cleaned. Your doctor may use a tiny needle to numb the skin over the area where you will get the injection. If a tiny needle is used to numb the area, your doctor will use another needle to inject the medicine. Your doctor may use a pain reliever, a steroid, or both. You may feel some pressure or discomfort. The procedure takes 10 to 30 minutes. But the shot itself usually takes only a few minutes. Your doctor may put ice on the area before you go home. You will probably go home shortly after your shot. What can you expect after the injection? You may have numbness over your hip for a few hours. If your shot included both a pain reliever and a steroid, the pain will probably go away right away. But it might come back after a few hours. This might happen if the pain reliever wears off and thesteroid has not started to work yet. The steroid medicine generally takes a few days to work. If the pain comes back, you can put ice or a cold pack on your hip for 10 to 20 minutes at a time. Put a thin cloth between the ice and your skin. Follow your doctor's instructions carefully. Avoid strenuous activities on the day you get the shot, especially those that put stress on your hip. Steroids don't always work. But when they do, the pain relief can last for several days to a few months or longer. Follow-up care is a pratt part of your treatment and safety. Be sure to make and go to all appointments, and call your doctor if you are having problems. It's also a good idea to know your test resultsand keep a list of the medicines you take. Where can you learn more? Go to [email or web address] and sign in to your [employer] account. Enter J909 in the Search Health Information box to learn more about Learning About a Hip Bursa Injection. If you do not have an account, please click on the Sign Up Now link. Current as of: May 05, 2019 Content Version: 12.5 4649-7934 [employer]. Care instructions adapted under license by [employer]. If you have questions about a medical condition or this instruction, always ask your healthcare professional. [employer] disclaims any warranty or liability for your use of this information. documented in this encounter History of Present Illness * Lianne Steele RN - 10/06/2019 10:00 AM EDT Patient arrived to CT department from home for left SI joint injection. Dr. Parmar in to discuss procedure with patient and informed consent obtained. Patient assisted to CT table and place prone. 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 40 mg Kenalog and 1.5 cc Bupivacaine injected into left SI joint. Bandaid applied to site. Patient tolerated procedure well. . documented in this encounter Chief Complaint Chief Complaint Description Start Date lower back post L3-4 L4-5 La teral Lumbar Interbody Fusion on 03/01/2021 Preliminary chief co mplaint data, not yet signed by the author as of Additional Source Comments INFORMATION SOURCE (unrecogn ized section and content) DATE CREATED AUTHOR AUTHOR'S ORGANIZ ATION 10/08/2019 [facility] DATE CREATED AUTHOR AUTHOR'S ORGANIZ ATION 10/14/2021 [facility] DATE CREATED AUTHOR AUTHOR'S ORGANIZ ATION 03/29/2022 [facility] DATE CREATED AUTHOR AUTHOR'S ORGANIZ ATION 06/21/2022 [facility] Reason for Visit (unrecogniz ed section and content) Reason Comments Macular Degeneration Evaluation Source Comments (unrecognize d section and content) In the event this informatio n is protected by the Federal Confidentiality of Alcohol and Drug Abuse Patient Records regulations: The Federal rules restrict any use of the information to criminally investigate or prosecute any alcohol or drug abuse patient.[facility] Care Teams (unrecognized sec tion and content) FOR RECORDS PERTAINING TO PATIENTS WHO ARE OR HAVE BEEN ENROLLED IN A CHEMICAL DEPENDENCY/SUBSTANCEABUSE PROGRAM, SOME INFORMATION MAY BE OMITTED. This clinical summary was aggregated from multiple sources. Caution should be exercised in using it in the provision of clinical care. This summary normalizes information from multiple sources, and as a consequence, information in this document may materially change the coding, format and clinical context of patient data. In addition, data may be omitted in some cases. CLINICAL DECISIONS SHOULD BE BASED ON THE PRIMARY CLINICAL RECORDS. [employer]. provides no warranty or guarantee of the accuracy or completeness of information in this document.
== END | disposition home or self-care (01) ==
LOC: LAB 11:36
PROVIDERS: PCP Family Medicine; Referring Provider Internal Medicine Nephrology; Visit Provider Internal Medicine Nephrology
DX: N10 Acute pyelonephritis (principal); D50.9 Iron deficiency anemia, unspecified
CPT/HCPCS: 36415; 80069

== ENCOUNTER → 2023-06-21 | Outpatient (CLI) | payer MEDICARE, SELFPAY ==
[2023-06-21 17:53] LABS: Albumin, Serum 3.6 g/dL (3.2-5.0); BUN 35 mg/dL (7-18); BUN/Creat Ratio 29.9 RATIO (10-20); Calcium,Total 8.6 mg/dL (8.5-10.1); Chloride 108 mmol/L (98-107); Creatinine, Serum 1.17 mg/dL (0.55-1.02); EST Glomerular Filtration Rate 48 mL/min (>60); Est Glom Filt Rate - Afr Amer 58 mL/min (>60); Glucose 94 mg/dL (74-106); Phosphorus 3.2 mg/dL (2.5-4.9); Sodium Level 138 mmol/L (136-145)
[2023-06-21 17:56] LABS: Microalbumin,Random Urine 11.1 mg/L (NO RANGE EST.)
== END | disposition home or self-care (01) ==
LOC: LAB 16:21
PROVIDERS: PCP Family Medicine; Visit Provider Internal Medicine Nephrology
DX: N10 Acute pyelonephritis (principal); N18.2 Chronic kidney disease, stage 2 (mild); R80.9 Proteinuria, unspecified
CPT/HCPCS: 36415; 80069; 82043; 82570

== ENCOUNTER → 2023-08-08 | Outpatient (CLI) | payer MEDICARE, SELFPAY ==
[2023-08-08 11:24] LABS: Anion Gap 5 (5-15); BUN 43 mg/dL (7-18); BUN/Creat Ratio 34.7 RATIO (10-20); Chloride 105 mmol/L (98-107); Creatinine, Serum 1.24 mg/dL (0.55-1.02); EST Glomerular Filtration Rate 45 mL/min (>60); Est Glom Filt Rate - Afr Amer 54 mL/min (>60); Glucose 92 mg/dL (74-106); Potassium 4.1 mmol/L (3.5-5.1); Sodium Level 138 mmol/L (136-145)
== END | disposition home or self-care (01) ==
LOC: LAB 10:14
PROVIDERS: PCP Family Medicine; Referring Provider Internal Medicine Nephrology; Visit Provider Internal Medicine Nephrology
DX: N10 Acute pyelonephritis (principal)
CPT/HCPCS: 36415; 80048

== ENCOUNTER 2023-09-11 10:20 | Outpatient (CLI) | payer MEDICARE, SELFPAY ==
[2023-09-11 12:48] LABS: Absolute Lymphocyte Count 1.77 X10^3/uL (0.83-4.51); Absolute Neutrophil Count 2.4 X10^3/uL (2.0-7.7); Basophil# 0.06 X10^3/uL; Basophil% 1.2 % (0-1); Cholesterol 148 mg/dL (200); Hematocrit 40.2 % (37-47); Hemoglobin 12.4 g/dL (12.0-15.0); High Density Lipoprotein 62 mg/dL; Lymphocyte # 1.77 X10^3/ul (0.83-4.51); Lymphocyte % 35.8 % (19-41); Mean Corp Hgb Conc 30.8 g/dL (32-36); Mean Corpuscular Hgb 30.7 pg (27.0-32.0); Mean Corpuscular Volume 99.5 fL (81-99); Mean Platelet Vol. 10.7 fl (6.2-12.0); Monocyte# 0.54 X10^3/uL; Monocyte% 10.9 % (0-10); NRBC Flagged by Analyzer 0 % (0-5); Neutrophil # 2.37 X10^3/uL (2.7-7.7); Neutrophil % 47.9 % (47-70); Platelet Count 249 K/mm3 (150-450); RBC Distribution Width SD 47.4 fl (35.1-43.9); Red Blood Count 4.04 M/mm3 (4.2-5.4); Thyroid Stim Hormone (TSH) 0.99 uIU/mL (0.358-3.74); Triglycerides 54 mg/dL; Very Low Density Lipoprotein 11 mg/dL (5-40)
[2023-09-11 13:00] LABS: Vitamin D,25 Hydroxy 41.8 ng/mL
== END 2023-09-11 23:59 | disposition home or self-care (01) ==
LOC: MTLAB 10:21
PROVIDERS: PCP Family Medicine; Referring Provider Family Medicine; Visit Provider Family Medicine
DX: I10 Essential (primary) hypertension (principal); E87.6 Hypokalemia; Z78.0 Asymptomatic menopausal state
CPT/HCPCS: 36415; 80061; 82306; 84443; 85025

== ENCOUNTER → 2023-12-12 | Outpatient (CLI) | payer MEDICARE, SELFPAY ==
[2023-12-12 12:51] LABS: Anion Gap 10 (5-15); BUN 51 mg/dL (7-18); Calcium,Total 9.3 mg/dL (8.5-10.1); Chloride 106 mmol/L (98-107); Creatinine, Serum 1.16 mg/dL (0.55-1.02); EST Glomerular Filtration Rate 49 mL/min (>60); Est Glom Filt Rate - Afr Amer 59 mL/min (>60); Glucose 90 mg/dL (74-106); Sodium Level 141 mmol/L (136-145)
== END | disposition home or self-care (01) ==
LOC: LAB 11:14
PROVIDERS: PCP Family Medicine; Referring Provider Internal Medicine Nephrology; Visit Provider Internal Medicine Nephrology
DX: N18.32 Chronic kidney disease, stage 3b (principal)
CPT/HCPCS: 36415; 80048

== ENCOUNTER → 2024-02-19 | Outpatient (CLI) | payer MEDICARE, SELFPAY ==
--- NOTE | 2024-02-19 17:52 | STRESSREP ---
Stress Test Report Pharmacologic myocardial perfusion stress test. 73-year-old lady with a history of dyspnea on exertion Resting EKG demonstrates sinus rhythm with a rate of 62 bpm. Resting blood pressure is 126/70 mmHg. 0.4 mg of regadenoson was infused per usual protocol followed by rapid intravenous saline flush injection. Continuous EKG monitoring was performed. The maximum heart rate was 88 bpm which was 60% of max impacted heart rate the maximum workload was 1 metabolic equivalent. At rest there were no ST or T wave changes noted to suggest ischemia and at peak infusion nonspecific ST changes were noted which did not meet the criteria for ischemia. No clinical angina is noted. The final blood pressure was 128/70 mmHg. Myocardial perfusion protocol. 11.5 mCi of technetium 99m sestamibi was injected at rest. 0.4 mg of regadenoson was infused per usual protocol. At peak infusion 36 mCi of technetium 99m sestamibi was injected stress images were obtained stress and rest images were reconstructed and compared in the short axis vertical long and horizontal long axis. Gated images were also obtained. Perfusion SPECT analysis: Review of the stress images demonstrate normal uptake of tracer noted in all areas of the myocardium. The resting images similar demonstrated normal uptake of tracer noted in all areas of the myocardium. No areas of reversibility are noted to suggest ischemia and no previous infarct is noted. Gated SPECT analysis: The gated ejection fraction is 73%. Conclusion: Normal pharmacologic myocardial perfusion stress test. Preserved ejection fraction.
== END | disposition home or self-care (01) ==
PROVIDERS: PCP Family Medicine; Referring Provider Physician Assistant Medical; Visit Provider Physician Assistant Medical
DX: Z01.810 Encounter for preprocedural cardiovascular examination (principal); R06.09 Other forms of dyspnea
CPT/HCPCS: 78452; 93017; A9500; A4216; J2785

== ENCOUNTER → 2024-02-28 | Outpatient (CLI) | payer MEDICARE, SELFPAY ==
--- NOTE | 2024-02-28 17:48 | CT_ITS ---
STUDY: CT BRAIN WITHOUT CONTRAST REASON FOR EXAM: Female, 73 years old. DIZZY RADIATION DOSAGE (If Supplied By Facility): CTDIvol = ( 44.99 ) mGy, DLP = ( 796.11 ) mGycm TECHNIQUE: Transaxial CT imaging of the brain was performed without administration of intravenous contrast material. Individualized dose optimization techniques were used for this CT. COMPARISON: No relevant priors. FINDINGS: Normal soft tissue structures. Normal calvarium. There is mild cerebral atrophy with widening of the extra-axial spaces and ventricular dilatation. There are areas of decreased attenuation within the white matter tracts of the supratentorial brain, consistent with microvascular disease changes. Normal basal ganglia and thalami. Normal brainstem. 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 There is no intracranial hemorrhage. There are no findings of an acute ischemic infarction. Normal visualized paranasal sinuses. CT/Brain/Head without Contrast IMPRESSION: Chronic involutional changes of the brain. Electronically Signed: Dimitris Celis MD at 17:46 EST ,
== END | disposition home or self-care (01) ==
PROVIDERS: PCP Family Medicine; Referring Provider Family Medicine; Visit Provider Family Medicine
DX: R42 Dizziness and giddiness (principal)
CPT/HCPCS: 70450

== ENCOUNTER → 2024-03-12 | Outpatient (CLI) | payer MEDICARE, SELFPAY ==
[2024-03-12 11:15] LABS: Hematocrit 41.1 % (37-47); Hemoglobin 13.2 g/dL (12.0-15.0); Mean Corp Hgb Conc 32.1 g/dL (32-36); Mean Corpuscular Volume 99.8 fL (81-99); Platelet Count 260 K/mm3 (150-450); RBC Distribution Width CV 13.6 % (11.6-14.6); RBC Distribution Width SD 50.1 fl (35.1-43.9); Red Blood Count 4.12 M/mm3 (4.2-5.4); White Blood Count 4.6 K/mm3 (4.4-11.0)
[2024-03-12 11:53] LABS: Albumin, Serum 3.2 g/dL (3.2-5.0); BUN 31 mg/dL (7-18); BUN/Creat Ratio 28.2 RATIO (10-20); Chloride 106 mmol/L (98-107); EST Glomerular Filtration Rate 52 mL/min (>60); Est Glom Filt Rate - Afr Amer 62 mL/min (>60); Glucose 91 mg/dL (74-106); Phosphorus 2.9 mg/dL (2.5-4.9); Potassium 4.6 mmol/L (3.5-5.1); Sodium Level 139 mmol/L (136-145)
== END | disposition home or self-care (01) ==
LOC: LAB 10:14
PROVIDERS: PCP Family Medicine; Referring Provider Internal Medicine Nephrology; Visit Provider Internal Medicine Nephrology
DX: N18.32 Chronic kidney disease, stage 3b (principal); D50.9 Iron deficiency anemia, unspecified
CPT/HCPCS: 36415; 80069; 85027

== ENCOUNTER 2024-04-14 10:16 | Outpatient (RCR) | payer MEDICARE, SELFPAY ==
--- NOTE | 2024-04-14 11:28 | HP.PTEVAL_ITS ---
Patient's Visit Information Visit Information Visit Information: MACK MAYA is a 73 year old F referred to Physical Therapy by Maritza Ren MD with a diagnosis of Vertigo. Date of Evaluation: 04/14/24 Physical Therapist: BLAIRE Gallagher Visit Plan Frequency: 2x /Week Duration: 2 Months Plan: Pt felt off after Eply and did not feel testing balance today was a good option. Pt is leaving for a trip. Want to re check L Hallpike when she gets back and test balance with vestibular inputs and VOR and plan a treatment plan accordingly as she had a cerebellar stroke and is off balance. Pt is agreeable to this. Subjective Subjective: She got up to go to the bathroom and she fell into the dresser and then walked further and ran into the doorway. She had a cerebellar stroke. She also had fluid behind both ear drums. Dr Ren wants to see if it is peripheral. It is not as bad as what it was but at times she will wake up and move to the L. She is very cautious. She has a bad back and will have an injection tomm and surgery in June. Usually she is not dizzy sitting in a chair. She has no dizziness when she gets into bed. Once in awhile she will get dizzy rolling over to she thinks her L. The dizziness will last seconds rolling to the L and the room will be spinning. Walking and turning her head is rough. Objective Objective: L Hallpike (+ for dizziness but negative for nystagmus). Went ahead and treat with L Eply R Hallpike was negative for dizziness and nystagmus Repeated L Hallpike and was improved dizziness therefore went ahead and treated with L Eply Pt had a foggy head feeling when she got up but overall felt no dizziness. Balance/Special Test Scores Dizziness Score: 32 Goals Goal 1:: I HEP Goal Time Frame: 8-12 Weeks Goal 2:: Abolish dizziness when she rolls over in bed Goal Time Frame: 8-12 Weeks Goal 3:: Test FGA, CATSIB and VOR and set goals accordingly next visit Anticipated Interventions Patient/Client Instruction: Educate patient on: Condition and Plan of Care For the Purpose of:: To improve nutrient delivery to tissue, To improve muscle performance and motor function, To improve ability to perform ADL's, To increase tolerance to activity/condition/position, To improve performance and independence with ADL's, To decrease level of supervision to perform tasks, To improve ability of physical actions for home/community/work/leisure, To improve gait and locomotor functions, To improve health of tissue, To improve endurance, To improve balance and To improve safety with gait Therapeutic Exercise to Include: Strength training, Endurance training, Balance training, Coordination and Active ROM For the Purpose of:: To improve ability to perform ADL's, To increase tolerance to activity/condition/position, To decrease level of supervision to perform tasks, To improve ability of physical actions for home/community/work/leisure, To improve gait and locomotor functions, To improve health of tissue, To decrease soft tissue restriction, To increase flexibility/ROM, To improve endurance and To improve safety with gait Functional Training to Include: Gait training For the Purpose of:: To improve gait and locomotor functions and To improve safety with gait Text: Thank you for the opportunity to evaluate your patient. For Medicare and Medicare HMO plans, please review the plan of care and approve it. It will need to be FAXED BACK to us at [phone] for Medicare purposes. For Medicare only, by signing this I certify the plan of care. Please let me know if there are questions or concerns regarding this plan of care. Physician Signature: Date:
--- NOTE | 2024-06-24 08:23 | HP.PT.NRP ---
Patient Information Patient Information: MACK MAYA was seen in my office for initial evaluation on 04/14/24. The following Plan of Care was established for this patient: POC Established Initial Frequency: 2x /Week Initial Duration: 2 Months Anticipated Interventions Patient/Client Instruction: Educate patient on: Condition and Plan of Care For the Purpose of:: To improve nutrient delivery to tissue, To improve muscle performance and motor function, To improve ability to perform ADL's, To increase tolerance to activity/condition/position, To improve performance and independence with ADL's, To decrease level of supervision to perform tasks, To improve ability of physical actions for home/community/work/leisure, To improve gait and locomotor functions, To improve health of tissue, To improve endurance, To improve balance and To improve safety with gait Therapeutic Exercise to Include: Strength training, Endurance training, Balance training, Coordination and Active ROM For the Purpose of:: To improve ability to perform ADL's, To increase tolerance to activity/condition/position, To decrease level of supervision to perform tasks, To improve ability of physical actions for home/community/work/leisure, To improve gait and locomotor functions, To improve health of tissue, To decrease soft tissue restriction, To increase flexibility/ROM, To improve endurance and To improve safety with gait Functional Training to Include: Gait training For the Purpose of:: To improve gait and locomotor functions and To improve safety with gait Last Seen Last Seen: This patient was last seen in our office 04/14/24. Pertinent comments regarding their Physical therapy will appear below: DC PT At this point I will be discontinuing this patient from physical therapy. I would be happy to see this patient again in the future if found appropriate by the physician. Thank you! Varsha Dhaliwal, BLAIRE Balance/Gait/Functional tests Balance/Special Test Scores Dizziness Score: 32
== END 2024-04-14 19:00 | disposition home or self-care (01) ==
LOC: PT 10:16
PROVIDERS: PCP Family Medicine; Referring Provider Family Medicine; Visit Provider Family Medicine
DX: R42 Dizziness and giddiness (principal)
CPT/HCPCS: 97162

== ENCOUNTER → 2024-06-02 | Outpatient (CLI) | payer MEDICARE, SELFPAY ==
--- NOTE | 2024-06-02 11:13 | RAD_ITS ---
PROCEDURE: HIP, UNI W/ PELVIS 2-3 VIEWS 06/02/2024 REASON FOR EXAM: HIP PAIN TECHNIQUE: AP view of the pelvis and two views of the right hip, 3 total images COMPARISON: 02/28/2023 FINDINGS: No fracture or dislocation. Symmetric appearing SI joints and pubic symphysis appear within limits. Partially imaged lower lumbar bilateral posterior fusion with intervertebral disc spacers. Lucency and irregularity along the peripheral aspect of the right greater trochanter may represent changes relating to tendinosis of the gluteal tendons. Pelvic phleboliths incidental. RAD/HIP, UNI W/ Pelvis 2-3 Views IMPRESSION: No fracture or dislocation. Lucency and irregularity along the peripheral aspect of the right greater troch anter may represent changes relating to tendinosis of the gluteal tendons. Reading Location: [id number]
== END | disposition home or self-care (01) ==
LOC: MTRAD 11:12
PROVIDERS: PCP Family Medicine; Referring Provider Family Medicine; Visit Provider Family Medicine
DX: M25.559 Pain in unspecified hip (principal)
CPT/HCPCS: 73502

== ENCOUNTER → 2024-06-04 | Outpatient (CLI) | payer MEDICARE, SELFPAY ==
--- NOTE | 2024-06-04 10:48 | BD_ITS ---
PROCEDURE: DEXA BONE DENSITY STUDY 06/04/2024 REASON FOR EXAM: PAIN F, age 73 y/o . Postmenopausal. TECHNIQUE: DXA scan of the lumbar spine and both hips, using make and model. REFERENCE LINKS: ISCD Adult Positions COMPARISON: Comparison is made with prior study dated August 16, 2022. FINDINGS: BMD and T-SCORES Lumbar spine: 0.936 g/cm2, T-Score -0.4 L1 through L4 Change from prior: Improvement by 2.7% Left femoral neck: 0.623 g/cm2, T-Score -2.0 Femoral neck comparison data not recommended for monitoring change. Left total hip: 0.747 g/cm2, T-Score -1.6 Change from prior: Improvement by 4.8% Right femoral neck: 0.671 g/cm2, T-Score -1.6 Femoral neck comparison data not recommended for monitoring change. Right total hip: 0.786 g/cm2, T-Score -1.3 Change from prior: Improvement by 6.3% Fracture Risk Calculation: FRAX (10-year Fracture Risk) Score: FRAX scores should never be reported in a patient with osteoporosis on DEXA or for any patient that is on bone medication. The patient doesmeet the pharmacological treatment recommendations for prevention of osteoporosis BD/Dexa Bone Density Study IMPRESSION: OSTEOPENIA. Recommend follow-up as clinically warranted. Reading Location: [place] [id number]
--- NOTE | 2024-06-04 11:46 | MRI_ITS ---
PROCEDURE: SPINE CERVICAL (ROUTINE) 06/04/2024 REASON FOR EXAM: PAIN TECHNIQUE: Noncontrast cervical spine MRI. Coronal and Sagittal reconstruction series were provided. COMPARISON: None. FINDINGS: Vertebrae: Cervical vertebral body heights are preserved. Slightly heterogenous marrow signal without suspicious replacement. Alignment: Cervical lordosis is maintained. Grade 1 anterolisthesis C3 on C4. Atlantoaxial interval is maintained. Vertebral body heights are within normal limits. Mild multilevel loss of disc space throughout the cervical spine. Spinal Cord: Cervical spinal cord is of normal size and signal intensities. Structures at the foramen magnum are unremarkable. C2-3: No significant canal stenosis or neural foraminal narrowing. C3-4: Disc osteophyte complex, yjel-lxbzbtj-vjkx-right uncinate hypertrophy and facet degenerative changes and moderate canal stenosis. Severe left and mild right neural foraminal narrowing. C4-5: Disc osteophyte complex, uncinate hypertrophy and facet degenerative changes with moderate canal stenosis. Severe bilateral neural foraminal narrowing. C5-6: Disc osteophyte complex, anfxf-revmhny-cdya-left uncinate hypertrophy and facet degenerative changes moderate canal stenosis. Severe bilateral neural foraminal narrowing. C6-7: Disc osteophyte complex, facet degenerative changes and ligamentum flavum hypertrophy with moderate canal stenosis. Severe bilateral neural foraminal narrowing. C7-T1: Small disc osteophyte complex, and facet degenerative changes. No significant canal stenosis. Moderate left neural foraminal narrowing. Right neural foramen is patent. MRI/Spine Cervical (Routine) IMPRESSION: No acute fracture or traumatic subluxation. Advanced multilevel degenerative changes, with up to moderate canal stenosis an d severe neural foraminal narrowing, most prominent at C4-C5 and C5-C6 Reading Location: [facility]
== END | disposition home or self-care (01) ==
PROVIDERS: PCP Family Medicine; Referring Provider Orthopaedic Surgery Orthopaedic Surgery of the Spine; Visit Provider Orthopaedic Surgery Orthopaedic Surgery of the Spine
DX: G95.9 Disease of spinal cord, unspecified (principal); M81.0 Age-related osteoporosis without current pathological fracture; Z78.0 Asymptomatic menopausal state
CPT/HCPCS: 72141; 77080

== ENCOUNTER 2024-08-15 12:00 | Outpatient (RCR) | payer MEDICARE, SELFPAY ==
--- NOTE | 2024-07-30 10:40 | HP.PTEVAL_ITS ---
Patient's Visit Information Visit Information Visit Information: MACK MAYA is a 73 year old F referred to Physical Therapy by LEEANNA Romero with a diagnosis of Glut med massive tear. Date of Evaluation: 07/30/24 Physical Therapist: Jaclyn Trevino DPT Visit Plan Frequency: 2x /Week Duration: 4 Weeks Plan: Aquatics- GENTLE- focus on LE and core strength/stabilization- possibly needs a hip replacement and has a glut med tear for the 4th time. Subjective Subjective: Patient reports that she torn her gluts 3x on the right and had them repaired by Dr. Samson in 2015. She thinks she has torn it for the 4th time. The last surgery was 2023- he was unsure if she tore it again what they would do possibly a transplant- she was hoping to see him the other day. She had an MRI which showed a massive tear- she has to show insurance that she is doing something before she sees him again. She wants to avoid surgery. She does not know how she hurt it this time. She has pain and decreased function. Moving in bed she has to sit up and turn over and then gently lay down so her sleep is disturbed. Picking her foot up off the accelerator is painful in the groin and she is now driving with her left foot. Sometimes she doesn't know when its going to hit. She is using a straight cane for ambulation Worst: 10/10 when it grabs her. She is mindful of twisting and putting her foot down. Best: 0/10. Eases: sitting in the recliner, heat, ice. She may also need a hip replacement. The pain is in the groin around in the back. The pain does radiate down the knee. She has no N/T in the leg. Occasional buckling but no falls. It hurts to lay flat at night- puts something under the knee at night to take pressure off. Therapy for 6 weeks if she can handle it then back to MD. She is normally pretty active. She really likes to walk and golf. PMHx: Jan 2024 Cerebellar Stroke, Lumbar Fusion 2020. Meds: last updated 07/11 no changes. Objective Objective: Posture: forward head, rounded shoulders can correct but does not maintain- mild lean to the right Gait: antalgic- decreased stand on right LE- straight cane- poor heel/toe- Trendenelenburg HR/TR: able with UE A SLS: weight shift with pain but unable to SLS- mild hip drop when standing on left LE Sensation: WNL to gross touch bilateral LE ROM: Lumbar: WNL, Hip: Flexion: 90 degrees, Extn:neutral, IR/ER: neutral Abd: 40 degrees- all with pain at end ranges, Knee: 10-125 degrees with pain in full extension in hip, Ankle: WNL Strength: Core: poor, Hip: Right : Flexion: 2+/5, Extn: 3+/5, Abd: 3+/5, IR/ER: 3+/5, Knee: 4/5 Ankle: 4+/5 Left: Hip: 4+/5, Knee: 4+/5, Ankle: 5/5 Flex: Right: HS: severe, Gastroc: moderate Palpation: tender along glut medius, greater troch Balance/Special Test Scores Lower Extremity Functional Score: 24 Goals Goal 1:: Patient will be I with HEP and progression Goal Time Frame: 4-6 Weeks Goal 2:: Patient will ambulate >150 with LRD and normalized gait pattern Goal Time Frame: 4-6 Weeks Goal 3:: Patient will SLS for 5 seconds on the right Goal Time Frame: 4-6 Weeks Goal 4:: Patient will report 80% improvement Goal Time Frame: 4-6 Weeks Rehabilitation Potential Physical Therapy Diagnosis: Patient presents with decreased LE and core strength/stabilization, flex and muscular endurance leading to abnormal gait pattern and increased pain with ADL's, Rehabilitation Potential: Good Anticipated Interventions Patient/Client Instruction: Educate patient on: Benefits of Fitness Program Therapeutic Exercise to Include: Strength training, Endurance training, Balance training, Coordination, Body mechanics, Postural training, Flexibilty training, Gait and locomotor training, Neuromotor development, In an aquatic setting, Passive ROM, Active ROM, Dynamic Lumbar Stabilization and Scapular Strength/Stabilization For the Purpose of:: To improve muscle performance and motor function Functional Training to Include: Gait training Text: Thank you for the opportunity to evaluate your patient. For Medicare and Medicare HMO plans, please review the plan of care and approve it. It will need to be FAXED BACK to us at [phone] for Medicare purposes. For Medicare only, by signing this I certify the plan of care. Please let me know if there are questions or concerns regarding this plan of care. Physician Signature: ___Date:
--- NOTE | 2024-08-25 11:45 | HP.PT.NRP ---
Patient Information Patient Information: MACK MAYA was seen in my office for initial evaluation on 07/30/24. The following Plan of Care was established for this patient: POC Established Initial Frequency: 2x /Week Initial Duration: 4 Weeks Anticipated Interventions Patient/Client Instruction: Educate patient on: Benefits of Fitness Program Therapeutic Exercise to Include: Strength training, Endurance training, Balance training, Coordination, Body mechanics, Postural training, Flexibilty training, Gait and locomotor training, Neuromotor development, In an aquatic setting, Passive ROM, Active ROM, Dynamic Lumbar Stabilization and Scapular Strength/Stabilization For the Purpose of:: To improve muscle performance and motor function Functional Training to Include: Gait training Last Seen Last Seen: This patient was last seen in our office . Pertinent comments regarding their Physical therapy will appear below: Pt is having a total hip replacement and is appropriate to be d/c at this time. At this point I will be discontinuing this patient from physical therapy. I would be happy to see this patient again in the future if found appropriate by the physician. Thank you! GARTH StokesT Balance/Gait/Functional tests Balance/Special Test Scores Lower Extremity Functional Score: 24
== END 2024-08-15 19:00 | disposition home or self-care (01) ==
LOC: PT 12:00
PROVIDERS: PCP Family Medicine; Referring Provider Physician Assistant; Visit Provider Physician Assistant
DX: M25.851 Other specified joint disorders, right hip (principal); M67.98 Unspecified disorder of synovium and tendon, other site; M70.61 Trochanteric bursitis, right hip
CPT/HCPCS: 97113; 97162

== ENCOUNTER 2024-09-17 22:45 | Emergency (ER) | payer MEDICARE, SELFPAY ==
[2024-09-17 22:46] VITALS: BP 151/72; PULSE 82; RESP 18; TEMP 36.8; O2SAT 98; BMI 28.3
--- NOTE | 2024-09-17 23:08 | CT_ITS ---
PROCEDURE: BRAIN/HEAD WITHOUT CONTRAST 09/17/2024 REASON FOR EXAM: HEADACHE TECHNIQUE: BRAIN/HEAD WITHOUT CONTRAST Coronal and Sagittal reconstruction series were provided. One or more dose reduction techniques were used (e.g., Automated exposure control, adjustment of the mA and/or kV according to patient size, use of iterative reconstruction technique. RADIATION DOSE SUMMARY: CTDlvol: 44.99 mGy DLP: 796.11 mGycm COMPARISON: 02/28/2024 FINDINGS: No acute intracranial hemorrhage, extra-axial collection, mass effect or evidence of acute infarct. Mild age-appropriate generalized brain parenchymal volume loss. 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 Absent [place] ocular lenses. Minimal scattered mucosal thickening in the paranasal sinuses with small amount of dependent fluid in the right sphenoid sinus. No mastoid effusions. Intact skull base and calvarium. Probable small benign notochordal remnant in the dorsal clivus. CT/Brain/Head without Contrast IMPRESSION: 1. No acute intracranial abnormality. 2. Mild volume loss and moderate chronic small-vessel ischemic changes. Reading Location: [id number]
[2024-09-17] MEDS: 0.9% Normal Saline (1000mL) 1,000 ML 999 ML IV (23:31)
[2024-09-17] MEDS: DiphenhydrAMINE 50 MG/ML Syringe 25 MG IV (23:31)
--- OUTSIDE RECORDS SUMMARY | 2024-09-17 23:33 | XMS RPT_ITS | CCD ---
Author Organization [facility] CliniSymo Care Team Providers Care Veneer Splicer Name Role Phone RosemaryscottieDemario Usman Unavailable Unavailable Kathy Demario Usman Unavailable Unavailable Malachi Lawton Unavailable Unavailable Koberling, Chyna L Unavailable Unavailable Koberling, Chyna L Unavailable Unavailable LawtonMalachi leslie L Unavailable Unavailable Malachi Lawton L Unavailable Unavailable Malachi Lawton Unavailable Unavailable Malachi Lawton Unavailable Unavailable Malachi Lawton Primary Care Provider [phone] Update Needed Unavailable Unavailable Floridalma Grant MD Unavailable Dr. Malachi Lowry Primary Care Provider [phone] Dr. Malachi Lowry Referring Provider Dr. Que Mccrary Attending Provider Dr. Que Mccrary Other Provider Dr. Que Mccrary Referring Provider Dr. Malachi Lowry Attending Augustusa shruthi Lawton, Dr. Malachi Sanchez Primary Care Unavailab ginna Lawton, Dr. Malachi Sanchez Primary Care Unavailab ginna Grant, Dr. Floridalma Houser Attending Unavailab le Rudy, Dr. Floridalma Houser Attending Unavailab ginna Lawton, Dr. Malachi Sanchez Primary Care Unavailab le Rudy, Dr. Floridalma Houser Attending Augustusab ginna Lawton, Dr. Malachi Sanchez Primary Care Unavailab ginna Lawton, Dr. Malachi Sanchez Primary Care Unavailab le Rudy, Dr. Floridalma Houser Attending Unavailab ginna Lawton, Dr. Malachi Sanchez Primary Care Unavailab le Rudy, Dr. Floridalma Houser Attending Augustusab ginna Low, Dr. Early Attending Provider [phone] Dr. Malachi Lowry Primary Care Provider Dr. Que Mccrary Attending Provider Dr. Que Mccrary Referring Provider Dr. Que Mccrary Other Provider Dr. Malachi Lowry Referring Provider Dr. Sharath Low Attending Provider Deanna, Dr. Herb Hassan Attending Provider Malachi Lowry Primary Care Provider Dr. Malachi Lowry Primary Care Provider CeDr. Herb merino Referring Provider Deanna, Dr. Herb Hassan Other Provider Demetra, Dr. Grey Attending Provider Deanna, Dr. Herb Hassan Referring Provider ISAAC Padron Attending Provider Dr. Malachi Lowry Primary Care Provider Dr. Malachi Lowry Referring Provider [phone] Kevin CAPACITOR REPAIRER, CAPACITOR REPAIRER-C Gabby Attending Provider Dr. Malachi Lowry Primary Care Provider [phone] Malachi Lowry Referring Provider Dr. Malachi Lowry Primary Care Provider [phone] Malachi Lowry Referring Provider [phone] Kevin CAPACITOR REPAIRER, CAPACITOR REPAIRER-C Gabby Attending Provider Dr. Malachi Lowry Primary Care Provider [phone] Malachi Lowry Referring Provider Kevin CAPACITOR REPAIRER, CAPACITOR REPAIRER-C Gabby Attending Provider Milo VERAS, Maritza Primary Care Provider [phone] Maritza Pedraza MD Primary Care Provider Maritza Pedraza MD Primary Care Provider [phone] Melodie Wise Attending Provider Melodie Wise Referring Provider Aiden DURÁN, Melodie Costa Other Provider Demetra VERAS, Dr. Grey Attending Provider Maritza Pedraza MD Attending Provider Milo VERAS, Maritza Referring Provider Dr. Rneetta Mary DO Attending Provider [phone] Renetta Mary DO Referring Provider Dr. Daniel Villafana MD Attending Provider Dr. Daniel Villafana MD Referring Provider Milo VERAS, Maritza Primary Care Provider Milo VERAS, Maritza Referring Provider Milo VERAS, Maritza Attending Provider YUAN, KEARA Attending Unavailable MILO, CHALON Primary Care Unavailable YUAN, KEARA Referring Unavailable KYRA YOUSSEF II Attending Unavailabl e SELF Referring Unavailable MILO, CHALON Primary Care Unavailable YUAN, KEARA Attending Unavailable MILO, CHALON Primary Care Unavailable YUAN, KEARA Referring Unavailable YUAN, KEARA Attending Unavailable MILO, CHALON Primary Care Unavailable YUAN, KEARA Referring Unavailable YUAN, KEARA Attending Unavailable MILO, CHALON Primary Care Unavailable YUAN, KEARA Referring Unavailable YUAN, KEARA Referring Unavailable MILO, CHALON Primary Care Unavailable YUAN, KEARA Attending Unavailable MILO, CHALON Primary Care Unavailable YUAN, KEARA Attending Unavailable YUAN, KEARA Referring Unavailable MILO, CHALON Primary Care Unavailable YUAN, KEARA Attending Unavailable YUAN, KEARA Referring Unavailable YUAN, KEARA Attending Unavailable MILO, CHALON Primary Care Unavailable YUAN, KEARA Referring Unavailable Milo VERAS, Maritza Primary Care Provider Maritza Pedraza MD Attending Provider Milo VERAS, Maritza Referring Provider Dr. Daniel Villafana MD Attending Provider Dr. Que Mccrary MD Attending Provider Saw Baptiste Attending Provider Saw Baptiste Referring Provider Kevin SESAY-C, Gabby Attending Provider [phone] Milo, Chalon Primary Care Unavailable Milo, Chalon Referring Unavailable Milo, Chalon Attending Unavailable Milo, Chalon Primary Care Unavailable Kevin CAPACITOR REPAIRER, Gabby Referring Unavailable Kevin CAPACITOR REPAIRER, Gabby Attending Unavailable Milo, Chalon Primary Care Unavailable Vilalfana, Daniel Referring Unavailable Villafana, Daniel Attending Unavailable Milo, Chalon Primary Care Unavailable Milo, Chalon Referring Unavailable Villafana, Daniel Attending Unavailable Milo, Chalon Primary Care Unavailable Demetra, [place] Attending Unavailable Aiden DURÁN, Melodie Costa Consulting Unavail able Milo, Chalon Primary Care Unavailable Aiden DURÁN, Melodie Costa Referring Unavail able Demetra, Que Attending Unavailable Milo, Chalon Referring Unavailable Milo, Chalon Primary Care Unavailable Kevin CAPACITOR REPAIRER, Gabby Attending Unavailable Milo, Chalon Referring Unavailable Milo, Chalon Primary Care Unavailable Melodie Wise Attending Unavail able Milo, Chalon Primary Care Unavailable Milo, Chalon Referring Unavailable Villafana, Daniel Attending Unavailable Milo, Chalon Primary Care Unavailable Milo, Chalon Referring Unavailable Milo, Chalon Attending Unavailable Milo, Chalon Primary Care Unavailable Gudz, Saw Referring Unavailable Gudz, Saw Attending Unavailable Usman, Renetta Referring Unavailable Milo, Chalon Primary Care Unavailable Usman, Renetta Attending Unavailable Mlio, Chalon Primary Care Unavailable Aiden DURÁN, Melodie Costa Referring Unavail able Melodie Wise Attending Unavail able Milo, Chalon Primary Care Unavailable Milo, Chalon Referring Unavailable Milo, Chalon Attending Unavailable Usman, Renetta Referring Unavailable Milo, Chalon Primary Care Unavailable Usman, Renetta Attending Unavailable Allergies Allergy Classification Reported Allergen(s) Allergy Type Date of Onset Reaction(s) Facility (1 source) Sulfonamides (Antibiotic); Translations: [sulfa drugs] Propensity to adverse reactions [facility] drug [facility]dis[facility] Sulfonamides (Antibiotic) Propensity to adverse reactions to drug 0 [place], [place] (1 source) Sulfacetamide Drug Allergy 6 toni [facility] Work Phone: (20 sources) Sulfonamides (Antibiotic); Translations: [SULFA (SULFONAMIDE ANTIBIOTICS)] Allergy to substance 11-07-200 5 [facility] Medications Current Medications Medication Drug Class(es) Dates Sig (Normalized) Sig (Original) acetaminophen 500 mg oral tablet (15 sources) Start: 12-02-2019 acetaminophen (TYLENOL) 500 mg tablet Take by mouth. 12/02/2019 Active Comment on above: Take by mouth. atorvastatin 20 mg oral tablet (10 sources) HMG-CoA Reductase Inhibitor Start: 03-17-2024 take 1 tablet by mouth once daily Atorvastatin 20 mg tablet Active 20 mg PO daily April 11, 2024 1:00am benoxinate hydrochloride 4 mg/ml / fluorescein sodium 3 mg/ml ophthalmic solution (6 sources) Diagnostic Dye Start: 02-21-2024 End: 02-21-2024 fluorescein-benoxin ate 0.3-0.4 % 1 Drop (FLURESS) Start: 11-08-2023 End: 11-09-2023 fluorescein-benoxinate 0.3-0 .4 % 1 Drop (FLURESS) Start: 09-20-2023 End: 09-21-2023 fluorescein-benoxinate 0.3-0 .4 % 1 Drop (FLURESS) Start: 07-05-2023 End: 07-06-2023 fluorescein-benoxinate 0.3-0 .4 % 1 Drop (FLURESS) Start: 06-07-2023 End: 06-08-2023 fluorescein-benoxinate 0.3-0 .4 % 1 Drop (FLURESS) Start: 05-10-2023 End: 05-10-2023 fluorescein-benoxinate 0.3-0 .4 % 1 Drop (FLURESS) Calcium (15 sources) Phosphate Binder, Calcium CALCIU M ORAL Take by mouth. Active CALCIUM ORAL Guero e by mouth. 0 Active Comment on above: Take by mouth. Calcium Carbonate / vitamin D3 (15 sources) CALCIUM CARBONAT E/VITAMIN D3 (VITAMIN D-3 ORAL) Take by mouth. Active CALCIUM CARBONAT E/VITAMIN D3 (VITAMIN D-3 ORAL) Take by mouth. 0 Active Comment on above: Take by mouth. calcium citrate 1500 mg / cholecalciferol 250 unt oral tablet (20 sources) Vitamin D Start: 01-21-20 20 Calcium Citrate-Vitamin D3 (Citracal + D Maximum) 315 mg-6.25 mcg (250 unit) tablet Active 1 {tbl} PO DAILY January 21, 2020 1:00am cyanocobalamin/folic acid (FOLIC ACID-B12 ORAL) (5 sources) cyanocobalamin/f o lic acid (FOLIC ACID-B12 ORAL) Take by mouth. Active DULoxetine 30 mg delayed release oral capsule (20 sources) Serotonin and Norepinephrine Reuptake Inhibitor Start: 04-11-19 25 take 3 capsules by mouth once daily Duloxetine 30 mg capsule,delayed release(DR/EC) Active 90 mg PO daily April 11, 2024 1:00am Start: 12-02-2018 End: 04-11-2024 take 1 capsule by mouth once daily Duloxetine 60 MG capsule Discontinued 60 mg PO DAILY December 02, 2018 12:00am April 11, 2024 9:59am pain duloxetine HCl ( CYMBALTA ORAL) Take 90 mg by mouth. Active duloxetine HCl ( CYMBALTA ORAL) Take by mouth. Active duloxetine HCl ( CYMBALTA ORAL) Take by mouth. 0 Active Comment on above: Take by mouth. gabapentin 300 mg oral capsule (14 sources) Anti-epileptic Agent Start: 8 take 2 capsules by mouth three times daily gabapentin (NEURONTIN) 300 mg capsule Indications: Cervical neuritis Take 2 capsules by mouth three times daily for 30 days. 180 capsule 05/18/2017 Active Comment on above: Take 2 capsules by m out three times daily for 30 days. linaclotide 0.145 mg oral capsule (15 sources) Guanylate Cyclase-C Agonist Start: 3 LINZESS 145 mcg capsule 05/18/2022 Active mineral oil 0.15 mg/mg / petrolatum 0.83 mg/mg ophthalmic ointment (14 sources) Start: 8 white petrolatum-mineral Oil (LUBRIFRESH P.M.) 83-15 % oint Use 1 application in the right eye daily at bedtime. 1 Tube 10/12/2017 Active Start: 10-12-2017 white petrolat um-mineral Oil (LUBRIFRESH P.M.) 83-15 % oint Use 1 application in the right eye daily at bedtime. 1 Tube 0 10/12/2017 Active Comment on above: Use 1 application in the right eye daily at bedtime. Multivitamin preparation (20 sources) Start: take 1 tablet by mouth once daily Multivitamin Active 1 TABLET PO DAILY January 21, 2020 10:01am Start: 01-21-2020 take 1 tablet by cholo th once daily Multivitamin Active 1 TABLET PO DAILY January 21, 2020 12:00am Start: 01-21-2020 take 1 tablet by cholo th once daily Multivitamin Active 1 TABLET PO DAILY January 21, 2020 1:00am phenylephrine hydrochloride 25 mg/ml ophthalmic solution (5 sources) alpha-1 Adrenergic Agonist Start: 06-05-2024 End: 06-05-2024 PHENYLephrine 2.5 % 1 drop (AK-DILATE, FRANCESCA-SYNEPHRINE) Start: 06-05-2024 End: 06-05-2024 1 drop, BOTH EYES, DIRECT ED, Starting on Sophia 06/05/24 at 1030, Until Sun06/05/24 at 2229, Administer for dilation PROTECT FROM LIGHT, OPHT CLINIC MED ORDERS Start: 11-08-2023 End: 11-09-2023 PHENYLephrine 2.5 % 1 Drop ( AK-DILATE, FRANCESCA-SYNEPHRINE) Start: 05-10-2023 End: 05-10-2023 PHENYLephrine 2.5 % 1 Drop ( AK-DILATE, FRANCESCA-SYNEPHRINE) Start: 05-07-2023 End: 05-08-2023 PHENYLephrine 2.5 % 1 Drop ( AK-DILATE, FRANCESCA-SYNEPHRINE) potassium chloride 10 meq extended release oral capsule (20 sources) Start: 09-27-2023 End: 09-12-2024 take 1 capsule by mouth once daily as needed Potassium Chloride 10 mEq capsule, extended release Active 10 meq PO DAILY as needed September 12, 2024 9:47am Start: 02-06-2022 End: 09-27-2023 take 10 mEq by mouth once daily Potassium Chloride 20 mEq tablet extended release Discontinued 10 meq PO DAILY 45 December 19, 2022 2:14pm September 27, 2023 3:17pm Start: 02-06-2022 End: 12-19-2022 take 10 mEq by mouth once daily Potassium Chloride Active 10 MEQ PO DAILY December 19, 2022 2:14pm Start: 02-06-2022 take 10 mEq by mouth twice daily Potassium Chloride Active 10 MEQ PO TWICE A DAY February 06, 2022 9:15am Start: 01-18-2022 End: 02-06-2022 take 1 tablet by mouth twice daily Potassium Chloride 20 mEq tablet extended release Discontinued 20 meq PO TWICE A DAY 60 January 18, 2022 1:00am February 06, 2022 9:15am potassium chlori de in water 10 mEq/100 mL Inject 10 mEq intravenously one time only. Active Comment on above: Inject 10 mEq intrav enously one time only. pregabalin 75 mg oral capsule (16 sources) Start: 02-03-20 End: 05-04-19 take 1 capsule by mouth three times daily pregabalin (LYRICA) 75 mg capsule Take 75 mg by mouth three times daily. 03/18/2021 Active Comment on above: Take 75 mg by mouth three times daily. proparacaine hydrochloride 5 mg/ml ophthalmic solution (10 sources) Local Anesthetic Start: 08-08-19 End: 08-08-19 proparacaine 0.5 % 1 drop (ALCAINE) Start: 08-07-2024 End: 08-07-2024 1 drop, BOTH EYES, DIRECT ED, Starting on Sophia 6 at 0900, Until Sophia 6/5/25 at 2059, Administer for pneumo tonometry, tonopen tonometry, or pachymetry. In the event of a proparacaine shortage, administer tetracaine 0.5% ophthalmic drops 1 drop in both eyes as directed for pneumo tonometry, tonopen tonometry, or pachymetry, OPHT CLINIC MED ORDERS Start: 06-05-2024 End: 06-05-2024 proparacaine 0.5 % 1 drop (A LCAINE) Start: 06-05-2024 End: 06-05-2024 1 drop, BOTH EYES, DIRECT ED, Starting on Sophia 4/05/27 at 1030, Until Sophia 4//25 at 2229, Administer for pneumo tonometry, tonopen tonometry, or pachymetry. In the event of a proparacaine shortage, administer tetracaine 0.5% ophthalmic drops 1 drop in both eyes as directed for pneumo tonometry, tonopen tonometry, or pachymetry, OPHT CLINIC MED ORDERS Start: 02-21-2024 End: 02-21-2024 proparacaine 0.5 % 1 Drop (A LCAINE) Start: 11-08-2023 End: 11-09-2023 proparacaine 0.5 % 1 Drop (A LCAINE) Start: 09-20-2023 End: 09-21-2023 proparacaine 0.5 % 1 Drop (A LCAINE) Start: 07-05-2023 End: 07-06-2023 proparacaine 0.5 % 1 Drop (A LCAINE) Start: 06-07-2023 End: 06-08-2023 proparacaine 0.5 % 1 Drop (A LCAINE) Start: 05-10-2023 End: 05-10-2023 proparacaine 0.5 % 1 Drop (A LCAINE) rosuvastatin calcium 5 mg oral tablet (3 sources) HMG-CoA Reductase Inhibitor Start: 01-18-2022 take 5 mg by mouth once daily Rosuvastatin Active 5 MG PO DAILY January 18, 2022 12:00am tiZANidine 2 mg oral tablet (2 sources) Central alpha-2 Adrenergic Agonist Start: 05-18-2022 take 2 mg by mouth at bedtime Tizanidine Active 2 MG PO BEDTIME May 18, 2022 12:00am traMADol hydrochloride 100 mg oral tablet (5 sources) Opioid Agonist Start: 04-26-2022 take 100 mg by mouth twice daily Tramadol Active 100 MG PO TWICE A DAY April 26, 2022 1:00am tropicamide 10 mg/ml ophthalmic solution (6 sources) Anticholinergic Start: 06-05-2024 End: 06-05-2024 tropicamide 1 % 1 drop (MYDRIACYL) Start: 06-05-2024 End: 06-05-2024 1 drop, BOTH EYES, DIRECT ED, Starting on Sophia 06/05/24 at 1030, Until Sophia 06/05/24 at 2229, Administer for dilation, OPHT CLINIC MED ORDERS Start: 11-08-2023 End: 11-09-2023 tropicamide 1 % 1 Drop (MYDR IACYL) Start: 05-10-2023 End: 05-10-2023 tropicamide 1 % 1 Drop (MYDR IACYL) Start: 05-07-2023 End: 05-08-2023 tropicamide 1 % 1 Drop (MYDR IACYL) Start: 06-21-2022 End: 06-22-2022 tropicamide 0.5 % 1 Drop (MY DRIACYL) vit A/vit C/vit E/zinc/coppe r (PRESERVISION AREDS ORAL) (5 sources) vit A/vit C/vit E/zinc/copper (PRESERVISION AREDS ORAL) Take by mouth. Active Vitamins A,C,Q-Iayy-Ejijeh (Preservision Areds) 4,296 mcg-226 mg-90 mg capsule (5 sources) Start: 07-19-2023 Vitamins A,C,E -Zinc-Copper (Preservision Areds) 4,296 mcg-226 mg-90 mg capsule Active 1 NMA PO TWICE A DAY July 19, 2023 12:00am Completed/Discontinued Medications Medication Drug Class(es) Dates Sig (Normalized) Sig (Original) acetaminophen 325 mg / HYDROcodone bitartrate 5 mg oral tablet (20 sources) Opioid Agonist Start: 06-28-2022 End: 07-27-2022 Hydrocodone-Acetamino phen 5-325 mg tablet Discontinued 1 {tbl} PO EVERY 6 HOURS as needed for pain 6 2 0 June 28, 2022 July 27, 2022 11:33am Cholelithiasis with chronic cholecystitis Calculus of gallbladder with chronic cholecystitis without obstruction Start: 06-28-2022 End: 07-27-2022 take 1 tablet by mouth every six hours Hydrocodone-Acetaminophen Discontinued 1 TABLET PO EVERY 6 HOURS 6 2 June 28, 2022 July 27, 2022 11:33am Start: 12-06-2018 End: 12-11-2018 Hydrocodone-Acetaminophen 1 EACH tablet Discontinued 1 - 2 NMA PO EVERY 6 HOURS 25 3 0 December 06, 2018 December 08, 2018 12:00am December 11, 2018 12:09am Primary osteoarthritis, left ankle and foot Hallux rigidus, left foot Start: 12-06-2018 End: 12-11-2018 Hydrocodone-Acetaminophen Di scontinued 1 - 2 EACH PO EVERY 6 HOURS 25 3 December 06, 2018 December 11, 2018 12:09am 0.05 ml aflibercept 40 mg/ml injection (4 sources) Vascular Endothelial Growth Factor Inhibitor Start: 11-08-2023 End: 11-08-2023 aflibercept intravitreal injection 2 mg/0.05 mL (EYLEA) Start: 11-08-2023 End: 11-08-2023 2 mg, ONCE, 1 dose, Starting on Sophia 11/08/23 at 1453, Until Sophia 11/08/23 at 1453 Start: 09-20-2023 End: 09-20-2023 aflibercept intravitreal inj ection 2 mg/0.05 mL (EYLEA) aflibercept intravitreal injection 2 mg/0.05 mL (EYLEA) (6 sources) Start: 04-10-2024 End: 04-10-2024 aflibercept intravitreal injection 2 mg/0.05 mL (EYLEA) Start: 04-10-2024 End: 04-10-2024 2 mg, ONCE, 1 dose, Starting on Sophia 04/10/24 at 1019, Until Sophia 04/10/24 at 1019 Start: 02-21-2024 End: 02-21-2024 aflibercept intravitreal inj ection 2 mg/0.05 mL (EYLEA) Start: 02-21-2024 End: 02-21-2024 2 mg, ONCE, 1 dose, Starting on Sophia 02/21/24 at 0927, Until Sophia 02/21/24 at 0927 Start: 01-03-2024 End: 01-03-2024 aflibercept intravitreal inj ection 2 mg/0.05 mL (EYLEA) Start: 01-03-2024 End: 01-03-2024 2 mg, ONCE, 1 dose, Starting on Sophia 01/03/24 at 1022, Until Sophia 01/03/24 at 1022 alendronic acid 70 mg oral tablet (20 sources) Bisphosphonate Start: 02-20-2018 End: 01-21-2020 take 1 tablet by mouth every week Alendronate 70 MG tablet Discontinued 70 mg PO EVERY WEEK February 20, 2018 1:00am January 21, 2020 10:00am Start: 01-09-2005 FOSAMAX 10 MG TAB Q WEEK 0 01/09/2005 Active alendronate (FOS AMAX) 70 MG tablet Take 70 mg by mouth every 7 days 0 Active Comment on above: Q WEEK amLODIPine 5 mg oral tablet (20 sources) Dihydropyridine Calcium Channel Shivam Start: 3 End: take 7.5 mg by mouth once daily Amlodipine 5 mg tablet Discontinued 7.5 mg PO DAILY June 21, 2022 1:10pm November 02, 2022 11:01am Start: 06-21-2022 End: 11-02-2022 take 7.5 mg by mouth once daily Amlodipine Discontinue d 7.5 MG PO DAILY June 21, 2022 1:10pm November 02, 2022 11:01am Start: 06-12-2022 amLODIPine (NO RVASC) 2.5 mg tablet 06/12/2022 Active Start: 01-23-2022 End: 08-01-2024 take 1 tablet by mouth once daily Amlodipine 5 mg tablet Discontinued 5 mg PO DAILY November 02, 2022 11:01am December 13, 2022 11:05am baclofen 10 mg oral tablet (20 sources) gamma-Aminobutyric Acid-ergic Agonist Start: 02-04-2024 take 1 tablet by mouth once daily at bedtime baclofen 5 mg tablet Take 5 mg by mouth daily at bedtime. 02/04/2024 Active Start: 03-01-2021 End: 09-12-2024 take 1 tablet by mouth twice daily Baclofen 10 mg tablet Discontinued 10 mg PO TWICE A DAY April 11, 2024 1:00am September 12, 2024 9:47am Start: 03-01-2021 baclofen (OLINDA ESAL) 10 mg tablet Take by mouth. 03/01/2021 Active Comment on above: Take by mouth. bevacizumab ([facility]) 1.25 mg intravitreal syringe (AVASTIN) (6 sources) Start: 08-09-2023 End: 08-09-2023 bevacizumab ([facility]) 1.25 mg intravitreal syringe (AVASTIN) Start: 07-05-2023 End: 07-05-2023 bevacizumab ([facility]) 1.25 mg intravitreal syringe (AVASTIN) Start: 06-07-2023 End: 06-07-2023 bevacizumab ([facility]) 1.25 mg intravitreal syringe (AVASTIN) Start: 05-10-2023 End: 05-10-2023 bevacizumab ([facility]) 1.25 mg intravitreal syringe (AVASTIN) 30 ml bupivacaine hydrochloride 2.5 mg/ml injection (1 source) Amide Local Anesthetic Start: 10-06-2019 End: 10-06-2019 bupivacaine (PF) (MARCAINE) 0.25 % injection Calcium Carbonate (1 source) Start: 12-02-2019 take 2 tablets by mouth once daily CALTRATE 600+D3 TABLET Take 2 tablet by mouth once a day CALTRATE 600+D3 TABLET Veronica Rivera AT CALCIUM CARBONATE-VIT D-MIN (1 source) Start: 07-04-2019 take 2 tablets by mouth once daily CALCIUM 1200 7435-8020 MG-UNIT CHEW 2 tablet by mouth once a day CALCIUM CARBONATE-VIT D-MIN Veronica Rivera AT Cholecalciferol (1 source) Vitamin D Start: 11-30-2016 take 1 capsule by mouth once daily SM VITAMIN D3 50 MCG (2000 UT) CAPS Take 1 by mouth once a day cholecalciferol (vitamin d3) [id number] Veronica Rivera AT faricimab-svoa intravitreal injection 6 mg/0.05 mL (VABYSMO) (4 sources) Start: 08-07-2024 End: 08-07-2024 faricimab-svoa intravitreal injection 6 mg/0.05 mL (VABYSMO) Start: 08-07-2024 End: 08-07-2024 6 mg, ONCE, 1 dose, Starting on Sophia 6/5/25 at 1004, Until Sophia 6/5/25 at 1004 Start: 06-05-2024 End: 06-05-2024 faricimab-svoa intravitreal injection 6 mg/0.05 mL (VABYSMO) Start: 06-05-2024 End: 06-05-2024 6 mg, ONCE, 1 dose, Starting on Sophia 4/3/25 at 1314, Until Sophia 4/3/25 at 1314 hydroCHLOROthiazide 12.5 mg oral capsule (20 sources) Thiazide Diuretic Start: 02-20-2018 End: 01-19-2020 take 3 capsules by mouth once daily as needed for edema Hydrochlorothiazide 12.5 MG capsule Discontinued 37.5 mg PO DAILY as needed for edema February 20, 2018 1:00am January 19, 2020 9:56am Start: 02-20-2018 End: 01-19-2020 take 37.5 mg by mouth once daily Hydrochlorothiazide Discontinued 37.5 MG PO DAILY February 20, 2018 1:00am January 19, 2020 9:56am hydrochlorothiaz barrett tablet by mouth as directed unsure of dose hydrochlorothiazide tablet Clare Reyes LPN hydroCHLOROthiazide 25 mg / triamterene 37.5 mg oral tablet (20 sources) Potassium-sparing Diuretic, Thiazide Diuretic Start: 01-18-2022 End: 01-18-2022 Triamterene-Hydrochlorothiaz id 37.5-25 mg tablet Discontinued 1 {tbl} PO DAILY January 18, 2022 12:49pm January 18, 2022 5:50pm Start: 01-18-2022 End: 01-18-2022 take 1 tablet by mouth once daily Triamterene-Hydrochlorothiazid Discontin ued 1 TABLET PO DAILY January 18, 2022 12:49pm January 18, 2022 5:50pm Start: 01-19-2020 End: 01-18-2022 Triamterene-Hydrochlorothiaz id 37.5-25 mg tablet Discontinued 1 {tbl} PO TWICE A DAY January 19, 2020 1:00am January 18, 2022 12:50pm Start: 01-19-2020 End: 01-18-2022 take 1 tablet by mouth twice daily Triamterene-Hydrochlorothiazid Discontin ued 1 TABLET PO TWICE A DAY January 19, 2020 1:00am January 18, 2022 12:50pm Start: 01-04-2016 take 1 tablet by cholo once daily MAXZIDE-25 37.5-25 MG TABS 1 tablet by m out once a day triamterene-hydrochlorothiazid [id number] Clare Reyes LPN Start: 01-09-2005 TRIAMTERENE-HY DROCHLOROTHIAZID 37.5 MG-25 MG CAP Take one(1) tablet daily. 0 01/09/2005 Active Comment on above: Take one(1) tablet d aily. 10 ml lidocaine hydrochloride 10 mg/ml injection (1 source) Antiarrhythmic, Amide Local Anesthetic Start: 0 End: 0 lidocaine PF 1 % injection losartan potassium 25 mg oral tablet (20 sources) Angiotensin 2 Receptor Shivam Start: End: take 1 tablet by mouth once daily Losartan 25 mg tablet Discontinued 25 mg PO DAILY January 18, 2022 1:00am January 18, 2022 5:50pm Start: 01-19-2020 End: 01-18-2022 take 1 tablet by mouth once daily Losartan 50 mg tablet Discontinued 50 mg PO DAILY January 19, 2020 1:00am January 18, 2022 12:48pm Start: 12-02-2018 End: 01-19-2020 take 1 tablet by mouth once daily Losartan 25 MG tablet Discontinued 25 mg PO DAILY December 02, 2018 12:00am January 19, 2020 9:56am Comment on above: Take 50 mg by mouth. methylPREDNISolone 4 mg oral tablet (2 sources) Corticosteroid Start: 2024 End: 2024 Methylprednisolone 4 mg tablets,dose pack Discontinued mg PO July 11, 2024 12:00am September 12, 2024 9:47am MULTIPLE VITAMINS-MINERALS (1 source) Start: 2016 take 1 tablet by mouth once daily MULTIVITAMIN ADULT TABS Take 1 by mouth once a day MULTIPLE VITAMINS-MINERALS Veronica Rivera AT Multivitamin tablet (5 sources) Start: 2019 End: 2023 Multivitamin tablet Discontinued 1 {tbl} PO DAILY January 21, 2020 1:00am January 09, 2024 11:26am omeprazole 40 mg delayed release oral capsule (12 sources) Proton Pump Inhibitor Start: 2022 End: 2023 take 1 capsule by mouth once daily Omeprazole 40 mg capsule,delayed release(DR/EC) Discontinued 40 mg PO DAILY 01 09November 02, 2022 12:00am January 09, 2024 11:26am predniSONE 1 mg oral tablet (20 sources) Start: 2023 End: 2023 take 1 tablet by mouth every other day Prednisone 1 mg tablet Discontinued 1 mg PO every other day July 19, 2023 11:01am January 09, 2024 11:26am Start: 12-13-2022 End: 07-19-2023 take 2 tablets by mouth once daily Prednisone 1 mg tablet Discontinued 2 mg PO DAILY December 13, 2022 12:00am July 19, 2023 11:01am Start: 12-13-2022 take 2 mg by mouth once daily Prednisone Active 2 MG PO DAILY December 13, 2022 12:00am Start: 11-02-2022 End: 12-13-2022 take 2 mg by mouth once daily Prednisone 5 mg tablet Discontinued 2 mg PO DAILY November 02, 2022 11:01am December 13, 2022 10:41am Start: 11-02-2022 End: 12-13-2022 take 2 mg by mouth once daily Prednisone Discontinued 2 MG PO DAILY November 02, 2022 11:01am December 13, 2022 10:41am Start: 07-27-2022 End: 11-02-2022 take 2.5 mg by mouth once daily Prednisone 5 mg tablet Discontinued 2.5 mg PO DAILY July 27, 2022 11:33am November 02, 2022 11:01am Start: 07-27-2022 End: 11-02-2022 take 2.5 mg by mouth once daily Prednisone Discontinue d 2.5 MG PO DAILY July 27, 2022 11:33am November 02, 2022 11:01am Start: 05-18-2022 End: 07-27-2022 take 1 tablet by mouth once daily Prednisone 5 mg tablet Discontinued 5 mg PO DAILY May 18, 2022 2:06pm July 27, 2022 11:33am Start: 04-26-2022 End: 05-18-2022 take 1 tablet by mouth every other day Prednisone 5 mg Tablet Discontinued 5 mg PO EVERY OTHER DAY April 26, 2022 1:00am May 18, 2022 2:07pm Comment on above: Take by mouth. Take 1 mg by mouth. 1 ml triamcinolone acetonide 40 mg/ml prefilled syringe (1 source) Corticosteroid Start: 10-06-2019 End: 10-06-2019 triamcinolone acetonide (KENALOG-40) injection Problems Active Problems Problem Classification Problem Date Documented Date Episodic/Chronic Acute and unspecified renal failure (20 sources) Acute renal failure syndrome; Translations: [Acute kidney failure, unspecified] 01-23-2022 Episodic Acute cerebrovascular disease (3 sources) Cerebellar infarction; Translations: [Cerebral infarction, unspecified] Onset: 09-12-2024 Chronic Aortic and peripheral arterial embolism or thrombosis (15 sources) Vascular disorder; Translations: [Embolism and thrombosis of unspecified artery] Onset: 5 02-01-2005 Chronic Biliary tract disease (20 sources) Calculus of gallbladder with cholecystitis; Translations: [Calculus of gallbladder with chronic cholecystitis without obstruction] 05-26-2022 Episodic Cataract (20 sources) Bilateral pseudophakia; Translations: [Presence of intraocular lens] Onset: 6 Chronic Chronic kidney disease (1 source) Chronic kidney disease; Translations: [Chronic kidney disease, stage 3b] Onset: 5 Conditions associated with dizziness or vertigo (1 source) Dizziness and giddiness; Translations: [Dizziness and giddiness] Onset: 5 Episodic Deficiency and other anemia (20 sources) Anemia; Translations: [Anemia, unspecified] 01-23-2022 Episodic Essential hypertension (20 sources) Essential hypertension; Translations: [Essential (primary) hypertension] Chronic Fluid and electrolyte disorders (20 sources) Hypokalemia; Translations: [Hypokalemia] 01-18-2022 Episodic Malaise and fatigue (15 sources) Fatigue; Translations: [Other fatigue] 12-13-2022 Episodic Nonspecific chest pain (20 sources) Other chest pain; Translations: [Chest pain] Onset: Episodic Other acquired deformities (8 sources) Scoliosis of lumbar spine; Translations: [Scoliosis, unspecified] 04-11-2024 Chronic Other bone disease and musculoskeletal deformities (11 sources) Osteopenia; Translations: [Other specified disorders of bone density and structure, unspecified site] Onset: 1 02-16-2021 Episodic Other congenital anomalies (15 sources) Hereditary lymphedema; Translations: [Hereditary lymphedema] Onset: 5 01-09-2005 Chronic Other connective tissue disease (2 sources) Trochanteric bursitis, right hip; Translations: [Enthesopathy of hip region] Onset: 6 01-04-2016 Episodic Other connective tissue disease (8 sources) History of lumbar fusion; Translations: [Arthrodesis status] 04-11-2024 Episodic Other connective tissue disease (1 source) Unspecified disorder of synovium and tendon, other site; Translations: [Unspecified disorder of synovium and tendon, other site] Onset: 5 Episodic Other fractures (20 sources) Fracture of ninth thoracic vertebra; Translations: [Unspecified fracture of T9-T10 vertebra, initial encounter for closed fracture] 04-10-2022 Episodic Other fractures (12 sources) Unspecified fracture of T9-T10 vertebra, initial encounter for closed fracture; Translations: [Closed fracture of dorsal [thoracic] vertebra without mention of spinal cord injury] 04-10-2022 Episodic Other lower respiratory disease (1 source) Dyspnea; Translations: [Dyspnea, unspecified] Episodic Other lower respiratory disease (1 source) Dyspnea, unspecified; Translations: [Other respiratory abnormalities] Episodic Other lower respiratory disease (20 sources) Dyspnea on exertion; Translations: [Other forms of dyspnea] 02-01-2022 Episodic Other lower respiratory disease (2 sources) Shortness of breath; Translations: [Shortness of breath] Onset: 5 Episodic Other nervous system disorders (1 source) Piriformis syndrome; Translations: [Lesion of sciatic nerve, right lower limb] Onset: 7 01-31-2017 Chronic Other nervous system disorders (10 sources) Cervical myelopathy; Translations: [Disease of spinal cord, unspecified] 04-11-2024 Chronic Other nervous system disorders (1 source) Disease of spinal cord, unspecified; Translations: [Disease of spinal cord, unspecified] Onset: 5 Chronic Other nervous system disorders (12 sources) Abnormal gait; Translations: [Abnormality of gait] Episodic Other non-traumatic joint disorders (4 sources) Hip pain; Translations: [Pain in right hip] 07-11-2024 Episodic Other non-traumatic joint disorders (1 source) Other specified joint disorders, right hip; Translations: [Other specified joint disorders, right hip] Onset: 5 Episodic Other screening for suspected conditions (not mental disorders or infectious disease) (20 sources) Electrocardiogram abnormal; Translations: [Abnormal electrocardiogram [ECG] [EKG]] 01-18-2022 Episodic Retinal detachments; defects; vascular occlusion; and retinopathy (20 sources) Bilateral drusen of maculae; Translations: [Drusen (degenerative) of macula, bilateral] Onset: 6 Chronic Spondylosis; intervertebral disc disorders; other back problems (3 sources) Lumbar spondylosis; Translations: [Spondylosis without myelopathy or radiculopathy, lumbar region] Onset: 7 01-10-2021 Chronic Spondylosis; intervertebral disc disorders; other back problems (20 sources) Sacroiliac joint pain; Translations: [Disorders of sacrum] Onset: 7 02-16-2021 Episodic Sprains and strains (13 sources) Strain of muscle and/or tendon of thigh; Translations: [Sprains and strains of other specified sites of hip and thigh] Onset: 0 12-02-2019 Episodic Unclassified (1 source) Refraction Onset: 5 Past or Other Problems Problem Classification Problem Date Documented Date Episodic/Chronic Blindness and vision defects (20 sources) Bilateral regular astigmatism; Translations: [Regular astigmatism, bilateral] Onset: 08-05-2015 Episodic Inflammation; infection of eye (except that caused by tuberculosis or sexually transmitteddisease) (15 sources) Keratitis; Translations: [Other keratitis] Onset: 10-12-2017 10-12-2017 [...] other site] Onset: 01-04-2016 01-04-2016 Episodic Other eye disorders (16 sources) Alternating esotropia; Translations: [Alternating esotropia with other noncomitancies] Onset: 08-05-2015 Episodic Other eye disorders (15 sources) Bilateral senile ectropion of lower eyelids; Translations: [Senile ectropion of right lower eyelid] Onset: 10-18-2017 10-18-2017 Episodic Other lower respiratory disease (2 sources) Other forms of dyspnea; Translations: [Other forms of dyspnea] Onset: 03-24-2024 Episodic Other non-traumatic joint disorders (1 source) Pain in unspecified hip; Translations: [Pain in unspecified hip] Onset: 06-04-2024 Episodic Unclassified (1 source) Problem Results Test Name Value Interpretation Reference Range Facility Cardiology Visit Reporton Cardiology Visit Report [facility] [address] [place] [address] OFFICE VISIT Date of Service: 09/12/24 MR#: [id number] Acct: [id number] Name: IVONNE MAYA Rep #: [id number] : 1950 Provider: LYNDA ware Age/Sex: 73/F [place] [facility] [place]: Signed HPI HPI History of Present Illness Details: This is a pleasant 73-year-old lady who presents to the office today for a cardiovascular visit. She has no previous cardiac history who was seen previously for hypertension. She was seen at her PCP's office and was told that she had a cardiac murmur. Echocardiogram from February 2020 demonstrated an ejection fraction of 60%, stage I diastolic dysfunction, no wall motion abnormalities and no valvular abnormalities. Pharmacologic stress test on 02/09/2022 was noted to be normal. She does have chronic kidney disease, it is felt that this was related to COVID. She states in February she had a cerebellar infarct. There was no work-up done per patient. From a cardiac standpoint, the patient is doing well. She denies any palpitations, chest pain, pressure or heaviness. She denies SOB, Orthopnea, and PND. She does not have bleeding issues; no blood in urine, stool, or nosebleeds. She does have bruising on her bilateral arms. She does acknowledge fatigue. She denies myalgias, or claudication. She does have chronic lymphedema. She does not have edema, or sudden weight gain. She denies lightheadedness, dizziness, syncopal or near syncopal episodes, and headaches. Intake Vital Signs 04/11/24 08:58 09/12/24 09:46 Height 5 ft 2 in 5 ft 2 in Weight: 151 lb BMI 27.6 BP 113/74 Blood Pressure Location Lt brachial Position Sitting Respiration 16 Pulse 79 Pulse Source Monitor Intake Visit Reasons: 1 Y FU Jute Bag Sewer Required: No Accompanied by: Self Is patient in pain?: No Allergies Sulfa (Sulfonamide Antibiotics) Allergy (Verified 09/12/24 13:15) Rash Medications ???Medication ???Instructions ???Recorded ???Confirmed ???Type calcium 315 mg (as 1 tab PO DAILY 01/21/20 09/12/24 H istory citrate)-vitamin D3 6.25 mcg (250 unit) tablet (Citracal + Vitamin D Maximum) vitamins A,C,I-rfis-gejpjg 4,296 1 cap PO BID 07/19/23 09/12/24 His tory mcg-226 mg-90 mg capsule (PreserVision AREDS) atorvastatin 20 mg tablet 20 mg PO QDAY 04/11/24 09/12/24 Hi story duloxetine 30 mg capsule,delayed 90 mg PO QDAY 04/11/24 09/12/24 Hi story release amlodipine 5 mg tablet 5 mg PO DAILY #90 tabs 08/01/24 Rx potassium chloride 10 mEq 10 meq PO DAILY PRN 09/12/2409/12 History capsule,extended release Have you fallen in the past year?: No PFSH Medical History Preop cardiovascular exam Wears glasses History of steroid therapy Fatty liver History of renal disease Former smoker Shortness of breath on exertion History of echocardiogram History of stress test Cardiology follow-up encounter Deep vein thrombophlebitis of right leg (1965) Lymphedema Essential hypertension Osteoarthritis Varicose vein of leg Surgical History History of cholecystectomy History of lumbar spinal fusion ( 02/2021) Gluteal tendonitis of right buttock ( 02/2020) History of section History of hysterectomy History of arthroscopy of left knee (2000) Family History Mother CVA (cerebral vascular accident), Onset Age: 72 Hypertension Father Cancer Brain Alcoholism Brother Cancer leukemia Atrial fibrillation Social History Smoking Status: Former smoker second hand exposure: No alcohol intake: current alcohol intake frequency: a few times a month Alcohol type: beer substance use type: does not use caffeine: Yes Type: coffee Number of servings: 3 ROS Const Const: Positive for fatigue; Negative for weakness Eyes Eyes: Negative for change in vision ENT ENT: Negative for dizziness or balance problems Cardio Chest Pain: No Palpitations: No Edema: Bilateral (dx: lymphedema, mild ) Resp Respiratory: Negative for SOB with activity, SOB at rest or SOB orthopnea SOB lying down GI GI: Negative nausea or heartburn Musc Musc: Negative for balance problems Skin Skin: Positive for other (bruising on bilateral arms) Neuro Neuro: Negative for dizziness, lightheadedness, near syncope, syncope or weakness Endo Endo: Positive for fatigue Cardiology Exam Const Appearance: cooperative, healthy appearing, no acute distress, well developed and well groomed Nutritional Appearance: average body habitus, well nourished and overweight (more content not included)... Normal [facility] OCT MACULA CIRRUS OU (BOTH E YES)on 08-07-2024 [facility] Radiology Study observation (narrative) [facility] VABYSMO (FARICIMAB-SVOA) 6MG INTRAVITREAL INJECTION OS (LEFT EYE)on 08-07-2024 [facility] Inital Evaluation (1) - PTon 07-30-2024 Inital Evaluation (1) - PT [facility] [address] [place] [address]. [address] [place] [address] / REHABILITATION SERVICES INITIAL EVALUATION MR#: [id number] Acct: [id number] Name: IVONNE MAYA Rep #: [id number] : 1950 73 From: Jaclyn Trevino DPT Referring Dr.: LEEANNA Romero Status: REG RCR Insurance: [facility] [employer] SELF PAY INSURANCE Patient's Visit Information Visit Information Visit Information: IVONNE MAYA is a 73 year old F referred to Physical Therapy by LEEANNA Romero with a diagnosis of Glut med massive tear. Date of Evaluation: 07/30/24 Physical Therapist: Jaclyn Trevino DPT Visit Plan Frequency: 2x /Week Duration: 4 Weeks Plan: Aquatics- GENTLE- focus on LE and core strength/stabilizatio n- possibly needs a hip replacement and has a glut med tear for the 4th time. Subjective Subjective: Patient reports that she torn her gluts 3x on the right and had them repaired by Dr. Samson in 2015. She thinks she has torn it for the 4th time. The last surgery was 2023- he was unsure if she tore it again what they would do possibly a transplant- she was hoping to see him the other day. She had an MRI which showed a massive tear- she has to show insurance that she is doing something before she sees him again. She wants to avoid surgery. She does not know how she hurt it this time. She has pain and decreased function. Moving in bed she has to sit up and turn over and then gently lay down so her sleep is disturbed. Picking her foot up off the accelerator is painful in the groin and she is now driving with her left foot. Sometimes she doesn't know when its going to hit. She is using a straight cane for ambulation Worst: 10/10 when it grabs her. She is mindful of twisting and putting her foot down. Best: 0/10. Eases: sitting in the recliner, heat, ice. She may also need a hip replacement. The pain is in the groin around in the back. The pain does radiate down the knee. She has no N/T in the leg. Occasional buckling but no falls. It hurts to lay flat at night- puts something under the knee at night to take pressure off. Therapy for 6 weeks if she can handle it then back to MD. She is normally pretty active. She really likes to walk and golf. PMHx: Jan 2024 Cerebellar Stroke, Lumbar Fusion 2020. Meds: last updated 07/11 no changes. Objective Objective: Posture: forward head, rounded shoulders can correct but does not maintain- mild lean to the right Gait: antalgic- decreased stand on right LE- straight cane- poor heel/toe- Trendenelenburg HR/TR: able with UE A SLS: weight shift with pain but unable to SLS- mild hip drop when standing on left LE Sensation: WNL to gross touch bilateral LE ROM: Lumbar: WNL, Hip: Flexion: 90 degrees, Extn:neutral, IR/ER: neutral Abd: 40 degrees- all with pain at end ranges, Knee: 10-125 degrees with pain in full extension in hip, Ankle: WNL Strength: Core: poor, Hip: Right : Flexion: 2+/5, Extn: 3+/5, Abd: 3+/5, IR/ER: 3+/5, Knee: 4/5 Ankle: 4+/5 Left: Hip: 4+/5, Knee: 4+/5, Ankle: 5/5 Flex: Right: HS: severe, Gastroc: moderate Palpation: tender along glut medius, greater troch Balance/Special Test Scores Lower Extremity Functional Score: 24 Goals Goal 1:: Patient will be I with HEP and progression Goal Time Frame: 4-6 Weeks Goal 2:: Patient will ambulate >150 with LRD and normalized gait pattern Goal Time Frame: 4-6 Weeks Goal 3:: Patient will SLS for 5 seconds on the right Goal Time Frame: 4-6 Weeks Goal 4:: Patient will report 80% improvement Goal Time Frame: 4-6 Weeks Rehabilitation Potential Physical Therapy Diagnosis: Patient presents with decreased LE and core strength/stabilizatio n, flex and muscular endurance leading to abnormal gait pattern and increased pain with ADL's, Rehabilitation Potential: Good Anticipated Interventions Patient/Client Instruction: Educate patient on: Benefits of Fitness Program Therapeutic Exercise to Include: Strength training, Endurance training, Balance training, Coordination, Body mechanics, Postural training, Flexibilty training, Gait and locomotor training, Neuromotor development, In an aquatic setting, Passive ROM, Active ROM, Dynamic Lumbar Stabilization and Scapular Strength/Stabilizatio n For the Purpose of:: To improve muscle performance and motor function Functional Training to Include: Gait training Text: Thank you for the opportunity to evaluate your patient. For Medicare and Medicare HMO plans, please review the plan of care and approve it. It will need to be FAXED BACK to us at [phone] for Medicare purposes. For Medicare only, by signing this I certify the plan of care. Please let me know if there are questions or concerns regarding this plan of care. Physician Signature: Date : 07/30/24 (more content not included)... Normal [facility] Cerv Spine 4 or 5 Viewson Cerv Spine 4 or 5 Views [facility] Services [address] [place], [place] [address] Cerv Spine 4 or 5 Views MR#: [id number] Acct: [id number] Name: IVONNE MAYA Rep #: [id number] : 1950 F 73 From: Rashard giron MD PCP: Dr. Maritza Pedraza MD Status: DEP AMB Study: Cerv Spine 4 or 5 Views Date of Exam: 07/11/24 Exam# [id number] Ordering Dr: Daniel Villafana MD PROCEDURE: CERV SPINE 4 OR 5 VIEWS 07/11/2024 REASON FOR EXAM: CERVICAL STENOSIS TECHNIQUE: 4 views of the cervical spine. COMPARISON: None. FINDINGS: Grade 1 anterolisthesis of C3 on C4. There are moderate diffuse spondylotic changes. Findings are demonstrated to by diffuse disc space narrowing, osteophyte formation and degenerative endplate sclerosis. There is diffuse facet joint arthropathy with secondary bilateral neural foramina narrowing. No fracture or dislocation is seen. No aggressive lytic or blastic bony lesion is noted. RAD/Cerv Spine 4 or 5 Views IMPRESSION: Diffuse spondylosis. No radiographic evidence of instability. Reading Location: [place] [address] CC: Dr. Maritza Pedraza MD; Dr. Daniel Villafana MD Commercial Plumber: Signed Normal [facility] Orthopedic Visit Reporton Orthopedic Visit Report [facility] [facility] [address] [place] [address] OFFICE VISIT Date of Service: 07/11/24 MR#: [id number] Acct: [id number] Name: IVONNE MAYA Rep #: [id number] : 1950 Provider: Dr. Daniel Villafana MD Age/Sex: 73/F Location: [facility] Status: Signed Intake Vital Signs 04/11/24 08:58 Height 5 ft 2 in Intake Visit Reasons: CERVICAL SPINE Chief Complaint: MRI Review Accompanied by: Is patient in pain?: No Allergies Sulfa (Sulfonamide Antibiotics) Allergy (Verified 07/11/24 08:46) Rash Medications ???Medication ???Instructions ???Recorded ???Confirmed ???Type calcium 315 mg (as 1 tab PO DAILY 01/21/20 07/11/24 H istory citrate)-vitamin D3 6.25 mcg (250 unit) tablet (Citracal + Vitamin D Maximum) amlodipine 5 mg tablet 5 mg PO DAILY #90 tabs 07/19/23 Rx vitamins A,C,L-hbym-seutjq 4,296 1 cap PO BID 07/19/23 07/11/24 His tory mcg-226 mg-90 mg capsule (PreserVision AREDS) potassium chloride 10 mEq 10 meq PO DAILY #90 caps 09/27/23 07/11/24 Rx capsule,extended release atorvastatin 20 mg tablet 20 mg PO QDAY 04/11/24 07/11/24 Hi story baclofen 10 mg tablet 10 mg PO BID 04/11/24 07/11/24 His tory duloxetine 30 mg capsule,delayed 90 mg PO QDAY 04/11/24 07/11/24 Hi story release methylprednisolone 4 mg tablets in mg PO 07/11/24 07/11/24 History a dose pack Have you fallen in the past year?: No PFSH Medical History Preop cardiovascular exam Wears glasses History of steroid therapy Fatty liver History of renal disease Former smoker Shortness of breath on exertion History of echocardiogram History of stress test Cardiology follow-up encounter Deep vein thrombophlebitis of right leg (1965) Lymphedema Essential hypertension Osteoarthritis Varicose vein of leg Surgical History History of cholecystectomy History of lumbar spinal fusion ( 02/2021) Gluteal tendonitis of right buttock ( 02/2020) History of section History of hysterectomy History of arthroscopy of left knee (2000) Family History Mother CVA (cerebral vascular accident), Onset Age: 72 Hypertension Father Cancer Brain Alcoholism Brother Cancer leukemia Atrial fibrillation Social History Smoking Status: Former smoker second hand exposure: No alcohol intake: current alcohol intake frequency: a few times a month Alcohol type: beer substance use type: does not use caffeine: Yes Type: coffee Number of servings: 3 HPI CERVICAL SPINE Details: This documentation accurately reflects the service provided and the decisions made by me, Dr. Daniel Villafana MD 07/11/24 0844. Part of today???s visit was documented by Cheyenne Meza ATC and Tiffany Donovan RN, acting as scribe. IVONNE MAYA is a 73 year old F here today for cervical spine MRI review. Patient states she does not have any neck pain today. She reports her balance still is not the best but she does not think it has progressed. She has not fallen but at times she does feel herself leaning to one side but she is able to catch herself so she doesn't fall. She does use the moseley to help guide her so she does not fall. She does not have trouble writing, texting, eating or holding objects. She states she has been dealing with some hip and groin pain and was referred to see Dr. Da Silva and they are thinking she will eventually need to have a TONYA soon. She states she was having quite a bit of discomfort in her left hip/lumbar spine and she saw Dr. Lo for an injection and it did give her relief. She had the injection in the beginning of April about 2 days after her last visit here. She denies heart or lung problems. She does have stage 3A kidney disease. She does have bilateral lower leg edema today in the office. She did have a cerebellum stroke and does not 04/11/2024: IVONNE MAYA is a 73 year old F here today for lumbar spine pain. She complains of a lengthy history of low back pain. She states the left low back is worse than the right. She denies numbness, tingling and radicular pain. She has a previous history of back surgery including a fusion L4-L5 L5-L6 and a spacer L3-L4. She has seen Dr. Lo for a kyphoplasty but he has not done any injections. The doctor she saw at [facility] did three steroid injections the last being in January which she reports was helpful. She has done PT in the past which she reports has been helpful. Prior to her surgery she did not have any symptoms/pain down into her legs. She tore her gluteus minimus/medius 3 times on the right and had 3 different surger (more content not included)... Normal [facility] Magnetic resonance imaging r eportOrdered By: Josue Bolton on 06-06-2024 Study report [facility] Imaging Services [address] [place] [address] Spine Cervical (Routine) MR#: [id number] Acct: [id number] Name: IVONNE MAYA Rep #: [id number] : 1950 F 73 From: Valery Bolton MD PCP: Dr. Maritza Pedraza MD Status: REG CL I Study:Spine Cervical (Routine) Date of Exam: 06/04/24 Exam# [id number] Ordering Dr: Allyson Villafana MD PROCEDURE: SPINE CERVICAL (ROUTINE) 06/04/2024 REASON FOR EXAM: PAIN TECHNIQUE: Noncontrast cervical spine MRI. Coronal and Sagittal reconstruction series were provided. COMPARISON: None. FINDINGS: Vertebrae: Cervical vertebral body heights are preserved. Slightly heterogenous marrow signal without suspicious replacement. Alignment: Cervical lordosis is maintained. Grade 1 anterolisthesis C3 on C4. Atlantoaxial interval is maintained. Vertebral body heights are within normal limits. Mild multilevel loss of disc space throughout the cervical spine. Spinal Cord: Cervical spinal cord is of normal size and signal intensities. Structures at the foramen magnum are unremarkable. C2-3: No significant canal stenosis or neural foraminal narrowing. C3-4: Disc osteophyte complex, aabb-hdstgki-neyo-rig ht uncinate hypertrophy and facet degenerative changes and moderate canal stenosis. Severe left and mild right neural foraminal narrowing. C4-5: Disc osteophyte complex, uncinate hypertrophy and facet degenerative changes with moderate canal stenosis. Severe bilateral neural foraminal narrowing. C5-6: Disc osteophyte complex, kcxsz-zdzltaj-oisb-le ft uncinate hypertrophy and facet degenerative changes moderate canal stenosis. Severe bilateral neural foraminal narrowing. C6-7: Disc osteophyte complex, facet degenerative changes and ligamentum flavum hypertrophy with moderate canal stenosis. Severe bilateral neural foraminal narrowing. C7-T1: Small disc osteophyte complex, and facet degenerative changes. No significant canal stenosis. Moderate left neural foraminal narrowing. Right neural foramen is patent. MRI/Spine Cervical (Routine) IMPRESSION: No acute fracture or traumatic subluxation. Advanced multilevel degenerative changes, with up to moderate canal stenosis andsevere neural foraminal narrowing, most prominent at C4-C5 and C5-C6 Reading Location: [place] CC: Dr. Maritza Pedraza MD; Dr. 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 Maritza Pedraza MD Status: REG CL I Study:Dexa Bone Density Study Date of Exam: 06/04/24 Exam# [id number] Ordering Dr: Allyson Villafana MD PROCEDURE: DEXA BONE DENSITY STUDY 06/04/2024 REASON FOR EXAM: PAIN F, age 73 y/o . Postmenopausal. TECHNIQUE: DXA scan of the lumbar spine and both hips, using make and model. REFERENCE LINKS: ISCD Adult Positions COMPARISON: Comparison is made with prior study dated August 16, 2022. FINDINGS: BMD and T-SCORES Lumbar spine: 0.936 g/cm2, T-Score -0.4 L1 through L4 Change from prior: Improvement by 2.7% Left femoral neck: 0.623 g/cm2, T-Score -2.0 Femoral neck comparison data not recommended for monitoring change. Left total hip: 0.747 g/cm2, T-Score -1.6 Change from prior: Improvement by 4.8% Right femoral neck: 0.671 g/cm2, T-Score -1.6 Femoral neck comparison data not recommended for monitoring change. Right total hip: 0.786 g/cm2, T-Score -1.3 Change from prior: Improvement by 6.3% Fracture Risk Calculation: FRAX (10-year Fracture Risk) Score: FRAX scores should never be reported in a patient with osteoporosis on DEXA or for any patient that is on bone medication. The patient doesmeet the pharmacological treatment recommendations for prevention of osteoporosis BD/Dexa Bone Density Study IMPRESSION: OSTEOPENIA. Recommend follow-up as clinically warranted. Reading Location: [place] [address] CC: Dr. Maritza Pedraza MD; Dr. Daniel Villafana MD ~ Commercial Plumber: Signed [facility] OCT ANGIOGRAPHY OU (BOTH EYE S)on 06-05-2024 [facility] Radiology Study observation (narrative) [facility] OCT MACULA CIRRUS OU (BOTH E YES)on 06-05-2024 [facility] Radiology Study observation (narrative) [facility] VABYSMO (FARICIMAB-SVOA) 6MG INTRAVITREAL INJECTION OS (LEFT EYE)on 06-05-2024 [facility] Dexa Bone Density Studyon Dexa Bone Density Study [facility] Imaging Services [address] [place] [id number] Dexa Bone Density Study MR#: [id number] Acct: [id number] Name: IVONNE MAYA Rep #: [id number] : 1950 F 73 From: Pedro Luis hardwick MD PCP: Dr. Maritza Pedraza MD Status: REG CLI Study: Dexa Bone Density Study Date of Exam: 06/04/24 Exam# [id number] Ordering Dr: Daniel Villafana MD PROCEDURE: DEXA BONE DENSITY STUDY 06/04/2024 REASON FOR EXAM: PAIN F, age 73 y/o . Postmenopausal. TECHNIQUE: DXA scan of the lumbar spine and both hips, using make and model. REFERENCE LINKS: [facility] COMPARISON: Comparison is made with prior study dated August 16, 2022. FINDINGS: BMD and T-SCORES Lumbar spine: 0.936 g/cm2, T-Score -0.4 L1 through L4 Change from prior: Improvement by 2.7% Left femoral neck: 0.623 g/cm2, T-Score -2.0 Femoral neck comparison data not recommended for monitoring change. Left total hip: 0.747 g/cm2, T-Score -1.6 Change from prior: Improvement by 4.8% Right femoral neck: 0.671 g/cm2, T-Score -1.6 Femoral neck comparison data not recommended for monitoring change. Right total hip: 0.786 g/cm2, T-Score -1.3 Change from prior: Improvement by 6.3% Fracture Risk Calculation: FRAX (10-year Fracture Risk) Score: FRAX scores should never be reported in a patient with osteoporosis on DEXA or for any patient that is on bone medication. The patient doesmeet the pharmacological treatment recommendations for prevention of osteoporosis BD/Dexa Bone Density Study IMPRESSION: OSTEOPENIA. Recommend follow-up as clinically warranted. Reading Location: [place] [address] CC: Dr. Maritza Pedraza MD; Dr. Daniel Villafana MD Commercial Plumber: Signed Normal [facility] Spine Cervical (Routine)on 0 06-04-2024 Spine Cervical (Routine) [facility] Imaging Services [address] [place] [address] Spine Cervical (Routine) MR#: [id number] Acct: [id number] Name: IVONNE MAYA Rep #: [id number] : 1950 F 73 From: Josue noel MD PCP: Dr. Maritza Pedraza MD Status: REG CLI Study: Spine Cervical (Routine) Date of Exam: Exam# [id number] Ordering Dr: Daniel Villafana MD PROCEDURE: SPINE CERVICAL (ROUTINE) 06/04/2024 REASON FOR EXAM: PAIN TECHNIQUE: Noncontrast cervical spine MRI. Coronal and Sagittal reconstruction series were provided. COMPARISON: None. FINDINGS: Vertebrae: Cervical vertebral body heights are preserved. Slightly heterogenous marrow signal without suspicious replacement. Alignment: Cervical lordosis is maintained. Grade 1 anterolisthesis C3 on C4. Atlantoaxial interval is maintained. Vertebral body heights are within normal limits. Mild multilevel loss of disc space throughout the cervical spine. Spinal Cord: Cervical spinal cord is of normal size and signal intensities. Structures at the foramen magnum are unremarkable. C2-3: No significant canal stenosis or neural foraminal narrowing. C3-4: Disc osteophyte complex, bvpf-oeuaiug-zhiv-rig ht uncinate hypertrophy and facet degenerative changes and moderate canal stenosis. Severe left and mild right neural foraminal narrowing. C4-5: Disc osteophyte complex, uncinate hypertrophy and facet degenerative changes with moderate canal stenosis. Severe bilateral neural foraminal narrowing. C5-6: Disc osteophyte complex, kvwmj-xoanxqd-jtwj-le ft uncinate hypertrophy and facet degenerative changes moderate canal stenosis. Severe bilateral neural foraminal narrowing. C6-7: Disc osteophyte complex, facet degenerative changes and ligamentum flavum hypertrophy with moderate canal stenosis. Severe bilateral neural foraminal narrowing. C7-T1: Small disc osteophyte complex, and facet degenerative changes. No significant canal stenosis. Moderate left neural foraminal narrowing. Right neural foramen is patent. MRI/Spine Cervical (Routine) IMPRESSION: No acute fracture or traumatic subluxation. Advanced multilevel degenerative changes, with up to moderate canal stenosis and severe neural foraminal narrowing, most prominent at C4-C5 and C5-C6 Reading Location[facility] CC: Dr. Maritza Pedraza MD; Dr. Daniel Villafana MD Commercial Plumber: Signed Normal [facility] HIP, UNI W/ Pelvis 2-3 Views on 06-02-2024 HIP, UNI W/ Pelvis 2-3 Views [facility] Imaging Services [address] [place] [address] HIP, UNI W/ Pelvis 2-3 Views MR#: [id number] Acct: [id number] Name: IVONNE MAYA Rep #: [id number] : 1950 F 73 From: Herb Pichardo MD PCP: Dr. Maritza Pedraza MD Status: REG CLI Study: HIP, UNI W/ Pelvis 2-3 Views Date of Exam: Exam# [id number] Ordering Dr: Maritza Pedraza MD PROCEDURE: HIP, UNI W/ PELVIS 2-3 VIEWS 06/02/2024 REASON FOR EXAM: HIP PAIN TECHNIQUE: AP view of the pelvis and two views of the right hip, 3 total images COMPARISON: 02/28/2023 FINDINGS: No fracture or dislocation. Symmetric appearing SI joints and pubic symphysis appear within limits. Partially imaged lower lumbar bilateral posterior fusion with intervertebral disc spacers. Lucency and irregularity along the peripheral aspect of the right greater trochanter may represent changes relating to tendinosis of the gluteal tendons. Pelvic phleboliths incidental. RAD/HIP, UNI W/ Pelvis 2-3 Views IMPRESSION: No fracture or dislocation. Lucency and irregularity along the peripheral aspect of the right greater trochanter may represent changes relating to tendinosis of the gluteal tendons. Reading Location: [id number] CC: Dr. Maritza Pedraza MD Commercial Plumber: Signed Normal [facility] Inital Evaluation (1) - PTon 04-14-2024 Inital Evaluation (1) - PT [facility] Physical Therapy [facility] [address] [place] [address] [address] [place] [address] / REHABILITATION SERVICES INITIAL EVALUATION MR#: [id number] Acct: [id number] Name: IVONNE MAYA Rep #: [id number] : 1950 73 From: Varsha RUDD Referring Dr.: Dr. Maritza Pedraza MD Status: REG RCR Insurance: [employer] INSURANCE Patient's Visit Information Visit Information Visit Information: IVONNE MAYA is a 73 year old F referred to Physical Therapy by Maritza Pedraza MD with a diagnosis of Vertigo. Date of Evaluation: 04/14/24 Physical Therapist: BLAIRE Gallagher Visit Plan Frequency: 2x /Week Duration: 2 Months Plan: Pt felt off after Eply and did not feel testing balance today was a good option. Pt is leaving for a trip. Want to re check L Hallpike when she gets back and test balance with vestibular inputs and VOR and plan a treatment plan accordingly as she had a cerebellar stroke and is off balance. Pt is agreeable to this. Subjective Subjective: She got up to go to the bathroom and she fell into the dresser and then walked further and ran into the doorway. She had a cerebellar stroke. She also had fluid behind both ear drums. Dr Pedraza wants to see if it is peripheral. It is not as bad as what it was but at times she will wake up and move to the L. She is very cautious. She has a bad back and will have an injection tomm and surgery in June. Usually she is not dizzy sitting in a chair. She has no dizziness when she gets into bed. Once in awhile she will get dizzy rolling over to she thinks her L. The dizziness will last seconds rolling to the L and the room will be spinning. Walking and turning her head is rough. Objective Objective: L Hallpike (+ for dizziness but negative for nystagmus). Went ahead and treat with L Eply R Katieke was negative for dizziness and nystagmus Repeated L Hallpike and was improved dizziness therefore went ahead and treated with L Eply Pt had a foggy head feeling when she got up but overall felt no dizziness. Balance/Special Test Scores Dizziness Score: 32 Goals Goal 1:: I HEP Goal Time Frame: 8-12 Weeks Goal 2:: Abolish dizziness when she rolls over in bed Goal Time Frame: 8-12 Weeks Goal 3:: Test FGA, CATSIB and VOR and set goals accordingly next visit Anticipated Interventions Patient/Client Instruction: Educate patient on: Condition and Plan of Care For the Purpose of:: To improve nutrient delivery to tissue, To improve muscle performance and motor function, To improve ability to perform ADL's, To increase tolerance to activity/condition/po sition, To improve performance and independence with ADL's, To decrease level of supervision to perform tasks, To improve ability of physical actions for home/community/work/l eisure, To improve gait and locomotor functions, To improve health of tissue, To improve endurance, To improve balance and To improve safety with gait Therapeutic Exercise to Include: Strength training, Endurance training, Balance training, Coordination and Active ROM For the Purpose of:: To improve ability to perform ADL's, To increase tolerance to activity/condition/po sition, To decrease level of supervision to perform tasks, To improve ability of physical actions for home/community/work/l eisure, To improve gait and locomotor functions, To improve health of tissue, To decrease soft tissue restriction, To increase flexibility/ROM, To improve endurance and To improve safety with gait Functional Training to Include: Gait training For the Purpose of:: To improve gait and locomotor functions and To improve safety with gait Text: Thank you for the opportunity to evaluate your patient. For Medicare and Medicare HMO plans, please review the plan of care and approve it. It will need to be FAXED BACK to us at [phone] for Medicare purposes. For Medicare only, by signing this I certify the plan of care. Please let me know if there are questions or concerns regarding this plan of care. Physician Signature: Date : 04/14/24 1128 CC: Dr. Maritza Pedraza MD Signed Normal [facility] Orthopedic Visit Reporton Orthopedic Visit Report [facility] [address] [place], [place] [id number] OFFICE VISIT Date of Service: 04/11/24 MR#: [id number] Acct: [id number] Name: IVONNE MAYA Rep #: [id number] : 1950 Provider: Dr. Daniel Villafana MD Age/Sex: 73/F Location: [facility] Status: Signed Intake Vital Signs 01/09/24 10:24 04/11/24 08:58 Height 5 ft 2 in 5 ft 2 in Weight: 154 lb BMI 28.1 Intake Visit Reasons: LUMBAR SPINE Chief Complaint: lumbar spine Is patient in pain?: Yes (Lumbar spine ) Pain scale (1-10): 5 Allergies Sulfa (Sulfonamide Antibiotics) Allergy (Verified 04/11/24 08:59) Rash Medications ???Medication ???Instructions ???Recorded ???Confirmed ???Type calcium 315 mg (as 1 tab PO DAILY 01/21/20 04/11/24 H istory citrate)-vitamin D3 6.25 mcg (250 unit) tablet (Citracal + Vitamin D Maximum) amlodipine 5 mg tablet 5 mg PO DAILY #90 tabs 07/19/23 Rx vitamins A,C,V-jxxd-asiils 4,296 1 cap PO BID 07/19/23 04/11/24 His tory mcg-226 mg-90 mg capsule (PreserVision AREDS) potassium chloride 10 mEq 10 meq PO DAILY #90 caps 09/27/23 04/11/24 Rx capsule,extended release atorvastatin 20 mg tablet 20 mg PO QDAY 04/11/24 04/11/24 Hi story baclofen 10 mg tablet 10 mg PO BID 04/11/24 04/11/24 His tory duloxetine 30 mg capsule,delayed 90 mg PO QDAY 04/11/24 04/11/24 Hi story release Have you fallen in the past year?: No PFSH Medical History Preop cardiovascular exam Wears glasses History of steroid therapy Fatty liver History of renal disease Former smoker Shortness of breath on exertion History of echocardiogram History of stress test Cardiology follow-up encounter Deep vein thrombophlebitis of right leg (1965) Lymphedema Essential hypertension Osteoarthritis Varicose vein of leg Surgical History History of cholecystectomy History of lumbar spinal fusion ( 02/2021) Gluteal tendonitis of right buttock ( 02/2020) History of section History of hysterectomy History of arthroscopy of left knee (2000) Family History Mother CVA (cerebral vascular accident), Onset Age: 72 Hypertension Father Cancer Brain Alcoholism Brother Cancer leukemia Atrial fibrillation Social History Smoking Status: Former smoker second hand exposure: No alcohol intake: current alcohol intake frequency: a few times a month Alcohol type: beer substance use type: does not use caffeine: Yes Type: coffee Number of servings: 3 HPI LUMBAR SPINE Details: This documentation accurately reflects the service provided and the decisions made by me, Dr. Daniel Villafana MD 04/11/24 7471. Part of today???s visit was documented by Tiffany Donovan LPN, acting as scribe. IVONNE MAYA is a 73 year old F here today for lumbar spine pain. She complains of a lengthy history of low back pain. She states the left low back is worse than the right. She denies numbness, tingling and radicular pain. She has a previous history of back surgery including a fusion L4-L5 L5- L6 and a spacer L3-L4. She has seen Dr. Lo for a kyphoplasty but he has not done any injections. The doctor she saw at [facility] did three steroid injections the last being in January which she reports was helpful. She has done PT in the past which she reports has been helpful. Prior to her surgery she did not have any symptoms/pain down into her legs. She tore her gluteus minimus/medius 3 times on the right and had 3 different surgeries. She had the surgery with Dr. Sarkar at [facility] but Dr. Corona is the one who caught it and referred her to [facility]. The hip surgeries were 2015, 2019 and 2023 and they had to keep doing it because it kept tearing. Prior to these hip surgeries she was having terrible pain, couldn't raise her leg and didn't have good range of motion. Since the last surgery her hip has been great. Since her last back surgery she has been having pain. She occasionally gets numbness on the left thigh. Leans on a cart in the grocery store to decrease her pain. Did have a cerebellum stroke in the beginning of February and her balance has been worsening. Takes Lipitor for the stroke but no other treatment. Non diabetic, no heart/lung problems. No scars in the abdomen other than the previous fusion surgery scar. Ortho Exam General General: Yes no acute distress Neurologic: Yes alert and Yes oriented x3 Psychologic: Yes reasonable and appropriate Spine SPINE TESTING CERVICAL THORACIC LUMBAR Musculoskeletal Strength 0=absent - 5=normal Details: Examination the back shows mi (more content not included)... Normal [facility] EYLEA (AFLIBERCEPT) 2MG INTR AVITREAL INJECTION OS (LEFT EYE)on 04-10-2024 [facility] OCT MACULA CIRRUS OU (BOTH E YES)on 04-10-2024 [facility] Radiology Study observation (narrative) [facility] 03-28-2024 ANGUS Telephone (OPTMAN) ZULMAIVONNE ([id number]) 1950 F Date Time Provider Department 03/28/24 KYRA YOUSSEF II During your visit today, we recorded the following information about you: Daphney King 03/28/2024 11:27 AM Signed Ivonne phoned stating she forgot to tell you that she had a cerebellum stroke approximately 3-4 weeks ago. Allergies As of Date: 03/28/2024 Noted Allergy Reaction SULFA (SULFONAMIDE ANTIBIOTICS) 01/09/2005 Date Reviewed: 03/19/2024 Reviewed by: Derek Louis, COA - Fully Assessed Reason for Visit: Patient Update [1234] Prescriptions as of 03/31/2024 - atorvastatin (LIPITOR) 20 mg tablet - vit A/vit C/vit E/zinc/copper (PRESERVISION AREDS ORAL) Take by mouth. - cyanocobalamin/folic acid (FOLIC ACID-B12 ORAL) Take by mouth. - baclofen 5 mg tablet Take 5 mg by mouth daily at bedtime. - acetaminophen (TYLENOL) 500 mg tablet Take by mouth. - amLODIPine (NORVASC) 2.5 mg tablet - amLODIPine (NORVASC) 5 mg tablet - LINZESS 145 mcg capsule - predniSONE (DELTASONE) 5 mg tablet Take 1 mg by mouth. - potassium chloride in water 10 mEq/100 mL Inject 10 mEq intravenously one time only. - baclofen (LIORESAL) 10 mg tablet Take by mouth. - pregabalin (LYRICA) 75 mg capsule Take 75 mg by mouth three times daily. - duloxetine HCl (CYMBALTA ORAL) Take 90 mg by mouth. - losartan potassium (LOSARTAN ORAL) Take 50 mg by mouth. - white petrolatum-mineral Oil (LUBRIFRESH P.M.) 83-15 % oint Use 1 application in the right eye daily at bedtime. - gabapentin (NEURONTIN) 300 mg capsule Take 2 capsules by mouth three times daily for 30 days. - CALCIUM CARBONATE/VITAMIN D3 (VITAMIN D-3 ORAL) Take by mouth. - CALCIUM ORAL Take by mouth. - FOSAMAX 10 MG TAB Q WEEK - TRIAMTERENE-HYDROCHLO ROTHIAZID 37.5 MG-25 MG CAP Take one(1) tablet daily. 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*10/18/2017 Nonexudative age-related macular degeneration, *01/03/2018 Encounter Status:Closed by DAPHNEY KING on 03/31/24 Normal [facility] Blood urea nitrogen (BUN)/cr eatinine ratioOrdered By: Renetta Mary on 03-12-2024 Urea nitrogen/Creatinine [Mass ratio] 28.2 mg/mg High 10-20 [facility] CBC-Complete Blood Cnt No Di ffon 03-12-2024 Erythrocyte distribution width (RBC) [Ratio] 13.6 % Normal 11.6-14.6 [facility] Comment on above: Performed By: #### L 500.3600, L100.0500 #### [facility] [place], [address] Hematocrit (Bld) [Volume fraction] 41.1 % Normal 37-47 [facility] Comment on above: Performed By: #### L 500.3600, L100.0500 #### [facility] Laboratory [address] [place], [address] Hemoglobin (Bld) [Mass/Vol] 13.2 g/dL Normal 12.0-15. 0 [facility] Comment on above: Performed By: #### L 500.3600, L100.0500 #### [facility] Laboratory [address] [place], [address] MCH (RBC) [Entitic mass] 32.0 pg Normal 27.0-32.0 [facility] Comment on above: Performed By: #### L 500.3600, L100.0500 #### [facility] Laboratory [address] [place], [address] MCHC (RBC) [Mass/Vol] 32.1 g/dL Normal 32-36 [facility] Comment on above: Performed By: #### L 500.3600, L100.0500 #### [facility] [address] [place], [address] MCV (RBC) [Entitic vol] 99.8 fL High 81-99 [facility] Comment on above: Performed By: #### L 500.3600, L100.0500 #### [facility] Laboratory [address] [place], [address] Platelet mean volume (Bld) [Entitic vol] 10.0 fL Normal 6.2-12.0 [facility] Comment on above: Performed By: #### L 500.3600, L100.0500 #### [facility] Laboratory [address] [place], [address] Platelets (Bld) [#/Vol] 260 10*3/uL Normal 150-450 [facility] Comment on above: Performed By: #### L 500.3600, L100.0500 #### [facility] [address] [place], [address] RBC (Bld) [#/Vol] 4.12 10*6/uL Low 4.2-5.4 [facility] Comment on above: Performed By: #### L 500.3600, L100.0500 #### [facility] [address] [place], [address] RDW SD 50.1 fl High 35.1-43.9 [facility] Comment on above: Performed By: #### L 500.3600, L100.0500 #### [facility] [address] [place], [address] WBC (Bld) [#/Vol] 4.6 10*3/uL Normal 4.4-11.0 [facility] Comment on above: Performed By: #### L 500.3600, L100.0500 #### [facility] [address] [place], [address] Carbon dioxide measurementOr dered By: Renetta Mary on 03-12-2024 CO2 [Moles/Vol] 27.0 mmol/L 21.0-32.0 [facility] Chloride measurementOrdered By: Renetta Mary on 03-12-2024 Chloride [Moles/Vol] 106 mmol/L 98-107 [facility] Erythrocyte distribution wid th (RBC) [Ratio]Ordered By: Renetta Mary on 03-12-2024 Erythrocyte distribution width (RBC) [Entitic vol] 50.1 fL High 35.1-43.9 [facility] Erythrocyte distribution wid th ratioOrdered By: Renetta Mary on 03-12-2024 Erythrocyte distribution width (RBC) [Ratio] 13.6 % 11.6-14.6 [facility] Erythrocyte distribution wid th standard deviationOrdered By: Renetta Mary on 03-12-2024 Erythrocyte distribution width (RBC) [Ratio] 50.1 fl High 35.1-43.9 [facility] Estimated glomerular filtrat ion rate (GFR) AmericanOrdered By: Renetta Mary on 03-12-2024 Estimated GFR (MDRD) Amer 62 mL/min >60 [facility] Comment on above: GFR Calc Glomerular filtration rate ( GFR) estimationOrdered By: Renetta Mary on 03-12-2024 Estimated GFR (MDRD) Non-Af Amer 52 mL/min Low >60 [facility] Comment on above: Non- GFR Calc GFR/1.73 sq M.predicted among non-blacks MDRD (S/P/Bld) [Vol rate/Area] 52 mL/min/{1.73_m2} Low >60 [facility] Comment on above: Non- GFR Calc Glucose measurementOrdered B y: Renetta Mary on 03-12-2024 Glucose [Mass/Vol] 91 mg/dL 74-106 [facility] Hematocrit Auto (Bld) [Volum e fraction]Ordered By: Renetta Mary on 03-12-2024 Hematocrit (Bld) [Volume fraction] 41.1 % 37-47 [facility] Hemoglobin measurementOrdere d By: Renetta Mary on 03-12-2024 Hemoglobin (Bld) [Mass/Vol] 13.2 g/dL 12.0-15. 0 [facility] MCV (mean corpuscular volume ) determinationOrdered By: Renetta Mary on 03-12-2024 MCV (RBC) [Entitic vol] 99.8 fL High 81-99 [facility] Mean corpuscular hemoglobin (MCH) determinationOrdered By: Renetta Mary on 03-12-2024 MCH (RBC) [Entitic mass] 32.0 pg 27.0-32.0 [facility] Mean corpuscular hemoglobin concentration (MCHC) determinationOrdered By: Renetta Mary on 03-12-2024 MCHC (RBC) [Mass/Vol] 32.1 g/dL 32-36 [facility] Mean platelet volume determi nationOrdered By: Renetta Mary on 03-12-2024 Platelet mean volume (Bld) [Entitic vol] 10.0 fL 6.2-12.0 [facility] Phosphorus measurementOrdere d By: Renetta Mary on 03-12-2024 Phosphorus Level 2.9 mg/dL 2.5-4.9 [facility] Platelet countOrdered By: Allyson Mary on 03-12-2024 Platelets (Bld) [#/Vol] 260 10*3/uL 150-450 [facility] Potassium measurementOrdered By: Renetta Mary on 03-12-2024 Potassium [Moles/Vol] 4.6 mmol/L 3.5-5.1 [facility] RBC Auto (Bld) [#/Vol]Ordere d By: Renetta Mary on 03-12-2024 RBC (Bld) [#/Vol] 4.12 10*6/uL Low 4.2-5.4 [facility] Renal Profileon 03-12-2024 Albumin [Mass/Vol] 3.2 g/dL Normal 3.2-5.0 [facility] Comment on above: Performed By: #### L 500.3600, L100.0500 #### [facility] [address] [place], [address] BUN/CRE 28.2 RATIO High 10-20 [facility] Comment on above: Performed By: #### L 500.3600, L100.0500 #### [facility] [address] [place], [address] CA,Total 9.0 mg/dL Normal 8.5-10.1 [facility] Comment on above: Performed By: #### L 500.3600, L100.0500 #### [facility] [address] [place], [address] Chloride [Moles/Vol] 106 mmol/L Normal 98-107 [facility] Comment on above: Performed By: #### L 500.3600, L100.0500 #### [facility] [address] [place], [address] CO2 [Moles/Vol] 27.0 mmol/L Normal 21.0-32.0 [facility] Comment on above: Performed By: #### L 500.3600, L100.0500 #### [facility] [address] [place], [address] Creatinine [Mass/Vol] 1.10 mg/dL High 0.55-1.02 [facility] Comment on above: Result Comment: The validity of the calculated GFR GFRAA in patients over 70 years has not been determined. Clinical correlation is essential. Performed By: #### L 500.3600, L100.0500 #### [facility] [address] [place], [address] EST GFR - AA 62 mL/min Normal >60 [facility] Comment on above: Result Comment: Afri can [place] GFR Calc Performed By: #### L 500.3600, L100.0500 #### [facility] [address] [place], [address] GFR/1.73 sq M.predicted among non-blacks MDRD (S/P/Bld) [Vol rate/Area] 52 mL/min/{1.73_m2} Low >60 [facility] Comment on above: Result Comment: Non- GFR Calc Performed By: #### L 500.3600, L100.0500 #### [facility] [address] [place], [address] Glucose [Mass/Vol] 91 mg/dL Normal 74-106 [facility] Comment on above: Performed By: #### L 500.3600, L100.0500 #### [facility] [address] [place], [address] Phosphate [Mass/Vol] 2.9 mg/dL Normal 2.5-4.9 [facility] Comment on above: Performed By: #### L 500.3600, L100.0500 #### [facility] [address] [place], [address] Potassium [Moles/Vol] 4.6 mmol/L Normal 3.5-5.1 [facility] Comment on above: Performed By: #### L 500.3600, L100.0500 #### [facility] [address] [place], [address] Sodium [Moles/Vol] 139 mmol/L Normal 136-145 [facility] Comment on above: Performed By: #### L 500.3600, L100.0500 #### [facility] [address] [place], [address] Urea nitrogen [Mass/Vol] 31 mg/dL High 09-19 [facility] Comment on above: Performed By: #### L 500.3600, L100.0500 #### [facility] [address] [place], [address] Serum or plasma albumin isaías urement (mass/volume)Ordered By: Renetta Mary on 03-12-2024 Albumin [Mass/Vol] 3.2 g/dL 3.2-5.0 [facility] Serum or plasma calcium isaías urement (mass/volume)Ordered By: Renetta Mary on 03-12-2024 Calcium [Mass/Vol] 9.0 mg/dL 8.5-10.1 [facility] Serum or plasma creatinine m easurement (mass/volume)Ordered By: Renetta Mary on 03-12-2024 Creatinine [Mass/Vol] 1.10 mg/dL High 0.55-1.02 [facility] Comment on above: The validity of the calculated GFR & GFRAA in patients over 70 years has not been determined. Clinical correlation is essential. Serum or plasma urea nitroge n measurement (mass/volume)Ordered By: Renetta Mary on 03-12-2024 Urea nitrogen [Mass/Vol] 31 mg/dL High 09-19 [facility] Sodium levelOrdered By: Freddie Mary on 03-12-2024 Sodium [Moles/Vol] 139 mmol/L 136-145 [facility] White blood cell (WBC) count Ordered By: Renetta Mary on 03-12-2024 WBC (Bld) [#/Vol] 4.6 10*3/uL 4.4-11.0 [facility] Brain/Head without Contrasto n 02-28-2024 Brain/Head without Contrast [facility] Imaging Services [address] [place], [place] [address] Brain/Head without Contrast MR#: [id number] Acct: [id number] Name: IVONNE MAYA Rep #: [id number] : 1950 F 73 From: Dimitris Celis MD PCP: Dr. Maritza Pedraza MD Status: REG CLI Study: Brain/Head without Contrast Date of Exam: 02/03 08/26 Exam# [id number] Ordering Dr: Maritza Pedraza MD [id number] STUDY: CT BRAIN WITHOUT CONTRAST REASON FOR EXAM: Female, 73 years old. DIZZY RADIATION DOSAGE (If Supplied By Facility): CTDIvol = ( 44.99 ) mGy, DLP = ( 796.11 ) mGycm TECHNIQUE: Transaxial CT imaging of the brain was performed without administration of intravenous contrast material. Individualized dose optimization techniques were used for this CT. COMPARISON: No relevant priors. FINDINGS: Normal soft tissue structures. Normal calvarium. There is mild cerebral atrophy with widening of the extra-axial spaces and ventricular dilatation. There are areas of decreased attenuation within the white matter tracts of the supratentorial brain, consistent with microvascular disease changes. Normal basal ganglia and thalami. Normal brainstem. 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 There is no intracranial hemorrhage. There are no findings of an acute ischemic infarction. Normal visualized paranasal sinuses. CT/Brain/Head without Contrast IMPRESSION: Chronic involutional changes of the brain. Electronically Signed: Dimitris Celis MD at 17:46 EST , CC: Dr. Maritza Pedraza MD Commercial Plumber: Signed Normal [facility] EYLEA (AFLIBERCEPT) 2MG INTR AVITREAL INJECTION OS (LEFT EYE)on 02-21-2024 [facility] OCT MACULA CIRRUS OU (BOTH E YES)on 02-21-2024 [facility] Radiology Study observation (narrative) [facility] Stress Reporton 02-19-2024 Stress Report [facility] Cardiovascular Services [address] [place] [address] MR#: [id number] Acct: [id number] Name: IVONNE MAYA Rep #: [id number] : 1950 73 From: Que Mccrary MD Primary Care: Dr. Maritza Pedraza MD Status: REG CLI Referring Dr: Melodie Wolfe Sex: F C Stress Test Report Pharmacologic myocardial perfusion stress test. 73-year-old lady with a history of dyspnea on exertion Resting EKG demonstrates sinus rhythm with a rate of 62 bpm. Resting blood pressure is 126/70 mmHg. 0.4 mg of regadenoson was infused per usual protocol followed by rapid intravenous saline flush injection. Continuous EKG monitoring was performed. The maximum heart rate was 88 bpm which was 60% of max impacted heart rate the maximum workload was 1 metabolic equivalent. At rest there were no ST or T wave changes noted to suggest ischemia and at peak infusion nonspecific ST changes were noted which did not meet the criteria for ischemia. No clinical angina is noted. The final blood pressure was 128/70 mmHg. Myocardial perfusion protocol. 11.5 mCi of technetium 99m sestamibi was injected at rest. 0.4 mg of regadenoson was infused per usual protocol. At peak infusion 36 mCi of technetium 99m sestamibi was injected stress images were obtained stress and rest images were reconstructed and compared in the short axis vertical long and horizontal long axis. Gated images were also obtained. Perfusion SPECT analysis: Review of the stress images demonstrate normal uptake of tracer noted in all areas of the myocardium. The resting images similar demonstrated normal uptake of tracer noted in all areas of the myocardium. No areas of reversibility are noted to suggest ischemia and no previous infarct is noted. Gated SPECT analysis: The gated ejection fraction is 73%. Conclusion: Normal pharmacologic myocardial perfusion stress test. Preserved ejection fraction. 02/19/241752 Date Que Mccrary MD CC: Dr. Maritza Pedraza MD; LEEANNA Reyes Date Dictated: 02/19/241751 Date Transcribed: 02/19/241751 Commercial Plumber: [place] Signed Normal [facility] Cardiology Visit Reporton Cardiology Visit Report [facility] [address] [place] [address] OFFICE VISIT Date of Service: 01/09/24 MR#: [id number] Acct: [id number] Name: IVONNE MAYA Rep #: [id number] : 1950 Provider: LEEANNA Honeycutt Age/Sex: 73/F Location: [facility] [place] Status: Signed HPI HPI History of Present Illness Details: This is a pleasant 73-year-old lady who presents to the office today for a cardiovascular visit. She has no previous cardiac history who was seen previously for hypertension. She was seen at her PCP's office and was told that she had a cardiac murmur. Echocardiogram from February 2020 demonstrated an ejection fraction of 60%, stage I diastolic dysfunction, no wall motion abnormalities and no valvular abnormalities. Pharmacologic stress test on 02/09/2022 was noted to be normal. She does have chronic kidney disease, it is felt that this was related to COVID. Pt has not had any chest pain since the last time that she was here. She is having issues with her back and was referred to a neurosurgeon. Because of this she is not able to do much activity. She does notice SOB with exertion. She did have COVID again in October. She does not have any palpitations that she is aware of. She does not have any lightheadedness/dizzi ness. She does have chronic lymphedema. Intake Vital Signs 07/19/23 10:58 01/09/24 10:24 Height 5 ft 2 in 5 ft 2 in Weight: 156 lb BMI 28.5 BP 128/81 H Blood Pressure Location Lt brachial Position Sitting Respiration 18 Pulse 77 Pulse Source Monitor Pulse Oximetry (%) 97 Intake Visit Reasons: 6 M FU J[employer] Bag [employer]er Required: No Is patient in pain?: No Allergies Sulfa (Sulfonamide Antibiotics) Allergy (Verified 01/09/24 10:24) Rash Medications ???Medication ???Instructions ???Recorded ???Confirmed ???Type duloxetine 60 mg capsule,delayed 60 mg PO DAILY pain 12/02/18 01/09/24 History release calcium 315 mg (as 1 tab PO DAILY 01/21/20 01/09/24 History citrate)-vitamin D3 6.25 mcg (250 unit) tablet (Citracal + Vitamin D Maximum) amlodipine 5 mg tablet 5 mg PO DAILY #90 tabs 07/19/23 01/09/24 Rx vitamins A,C,Q-gxqr-yylfua 4,296 1 cap PO BID 07/19/23 01/09/24 History mcg-226 mg-90 mg capsule (PreserVision AREDS) potassium chloride 10 mEq 10 meq PO DAILY #90 caps 09/27/23 01/09/24 Rx capsule,extended release Have you fallen in the past year?: No PFSH Medical History (Updated 01/09/24 @ 10:49 by Melodie Wolfe PA, PA) Preop cardiovascular exam Wears glasses History of steroid therapy Fatty liver History of renal disease Former smoker Shortness of breath on exertion History of echocardiogram History of stress test Cardiology follow-up encounter Deep vein thrombophlebitis of right leg (1965) Lymphedema Essential hypertension Osteoarthritis Varicose vein of leg Surgical History History of cholecystectomy History of lumbar spinal fusion ( 02/2021) Gluteal tendonitis of right buttock ( 02/2020) History of section History of hysterectomy History of arthroscopy of left knee (2000) Family History Mother CVA (cerebral vascular accident), Onset Age: 72 Hypertension Father Cancer Brain Alcoholism Brother Cancer leukemia Atrial fibrillation Social History Smoking Status: Former smoker second hand exposure: No alcohol intake: current alcohol intake frequency: a few times a month Alcohol type: beer substance use type: does not use caffeine: Yes Type: coffee Number of servings: 3 ROS Const Const: Positive for fatigue; Negative for weakness or headache(s) Eyes Eyes: Negative for blurry vision or change in vision ENT ENT: Positive for balance problems; Negative for headache(s), dizziness or hearing loss Cardio Chest Pain: No Palpitations: No Edema: Bilateral Muscle aches with walking: None Resp Respiratory: Positive for SOB with activity; Negative for SOB at rest or SOB orthopnea SOB lying down GI GI: Negative nausea or heartburn : Negative for hematuria Musc Musc: Positive for muscle aches/ myalgia, muscle weakness, joint pain and balance problems Neuro Neuro: Negative for dizziness, headache(s), weakness or blurry vision Endo Endo: Positive for fatigue Cardiology Exam Const Appearance: cooperative, healthy appearing, no acute distress, well developed and well groomed Nutritional Appearance: average body habitus and well nourished Orientation: alert, awake and oriented x3 Head Head: normal to inspection, normocephalic and atraumatic Ears: hearing grossly normal bilaterally and ex (more content not included)... Normal [facility] EYLEA (AFLIBERCEPT) 2MG INTR AVITREAL INJECTION OS (LEFT EYE)on 01-03-2024 [facility] OCT MACULA CIRRUS OU (BOTH E YES)on 01-03-2024 [facility] Radiology Study observation (narrative) [facility] Basic Metabolic Profile (BMP )on 12-12-2023 BUN/CRE 44.0 RATIO High 12-22 [facility] Comment on above: Performed By: #### L 500.2500 #### [facility] [address] [place], [address] CA,Total 9.3 mg/dL Normal 8.5-10.1 [facility] Comment on above: Performed By: #### L 500.2500 #### [facility] [address] [place], [address] Chloride [Moles/Vol] 106 mmol/L Normal 98-107 [facility] Comment on above: Performed By: #### L 500.2500 #### [facility] [address] [place], [address] CO2 [Moles/Vol] 25.0 mmol/L Normal 21.0-32.0 [facility] Comment on above: Performed By: #### L 500.2500 #### [facility] [address] [place], [address] Creatinine [Mass/Vol] 1.16 mg/dL High 0.55-1.02 [facility] Comment on above: Result Comment: The validity of the calculated GFR GFRAA in patients over 70 years has not been determined. Clinical correlation is essential. Performed By: #### L 500.2500 #### [facility] [address] [place], [address] EST GFR - AA 59 mL/min Low >60 [facility] Comment on above: Result Comment: Afri can [place] GFR Calc Performed By: #### L 500.2500 #### [facility] [address] [place], [address] GAP 10 Normal 5-15 [facility] Comment on above: Performed By: #### L 500.2500 #### [facility] [address] [place], [address] GFR/1.73 sq M.predicted among non-blacks MDRD (S/P/Bld) [Vol rate/Area] 49 mL/min/{1.73_m2} Low >60 [facility] Comment on above: Result Comment: Non- GFR Calc Performed By: #### L 500.2500 #### [facility] [address] [place], [address] Glucose [Mass/Vol] 90 mg/dL Normal 74-106 [facility] Comment on above: Performed By: #### L 500.2500 #### [facility] [address] [place], [address] Potassium [Moles/Vol] 4.0 mmol/L Normal 3.5-5.1 [facility] Comment on above: Performed By: #### L 500.2500 #### [facility] [address] [place], [address] Sodium [Moles/Vol] 141 mmol/L Normal 136-145 [facility] Comment on above: Performed By: #### L 500.2500 #### [facility] [address] [place], [address] Urea nitrogen [Mass/Vol] 51 mg/dL High 7-18 [facility] Comment on above: Performed By: #### L 500.2500 #### [facility] [address] [place], [place], [address] EYLEA (AFLIBERCEPT) 2MG INTR AVITREAL INJECTION OS (LEFT EYE)on 11-08-2023 [facility] OCT MACULA CIRRUS OU (BOTH E YES)on 11-08-2023 [facility] Radiology Study observation (narrative) [facility] EYLEA (AFLIBERCEPT) 2MG INTR AVITREAL INJECTION OS (LEFT EYE)on 09-20-2023 [facility] OCT MACULA CIRRUS OU (BOTH E YES)on 09-20-2023 [facility] Radiology Study observation (narrative) [facility] AVASTIN (BEVACIZUMAB) 1.25MG INTRAVITREAL INJECTION OS (LEFT EYE)on 08-09-2023 [facility] OCT MACULA CIRRUS OU (BOTH E YES)on 08-09-2023 [facility] Radiology Study observation (narrative) [facility] AVASTIN (BEVACIZUMAB) 1.25MG INTRAVITREAL INJECTION OS (LEFT EYE)on 07-05-2023 [facility] OCT MACULA CIRRUS OU (BOTH E YES)on 07-05-2023 [facility] Radiology Study observation (narrative) [facility] Basophil percentageOrdered B y: Renetta Mary on 06-21-2023 Basophil percentage 3.2 mg/[facility] 2[facility]5-4.9 [facility] Ch[facility] [Moles/Vol] 108 mmol/L 98-107 [facility] Glucose [Mass/Vol] 94 mg/dL 74-106 [facility] Potassium [Moles/Vol] 4.0 mmol/L 3.5-5.1 [facility] Sodium [Moles/Vol] 138 mmol/L 136-145 [facility] Laboratory - Chemistry and C hemistry - challengeOrdered By: Renetta Mary on 06-21-2023 CO2 [Moles/Vol] 26.0 mmol/L 21.0-32.0 [facility] Urea nitrogen/Creatinine [Mass ratio] 29.9 mg/mg 10-20 [facility] No Panel InformationOrdered By: Renetta Mary on 06-21-2023 Estimated GFR (MDRD) Amer 58 mL/min >60 [facility] Comment on above: GFR Calc Estimated GFR (MDRD) Non-Af Amer 48 mL/min >60 [facility] Comment on above: Non- GFR Calc Urine Microalbumin/Creatinine Ratio 24.0 mg/g CRE <30 [facility] Serum or plasma calcium isaías urement (mass/volume)Ordered By: Renetta Mary on 06-21-2023 Calcium [Mass/Vol] 8.6 mg/dL 8.5-10.1 [facility] Serum or plasma creatinine m easurement (mass/volume)Ordered By: Renetta Mary on 06-21-2023 Creatinine [Mass/Vol] 1.17 mg/dL 0.55-1.02 [facility] Comment on above: The validity of the calculated GFR & GFRAA in patients over 70 years has not been determined. Clinical correlation is essential. Serum or plasma urea nitroge n measurement (mass/volume)Ordered By: Renetta Mary on 06-21-2023 Urea nitrogen [Mass/Vol] 35 mg/dL -18 [facility] Thin prep Papanicolaou smear with manual screeningOrdered By: Renetta Mary on 06-21-2023 Thin prep Papanicolaou smear with manual screening 3.6 g/dL 3.2-5.0 [facility] Thin prep Papanicolaou smear with manual screening 11.1 mg/L NO RANGE EST. [facility] Urine creatinine measurement (mass/volume)Ordered By: Renetta Mary on 06-21-2023 Creatinine (U) [Mass/Vol] 46.30 mg/dL NO RANGE EST. [facility] Basophil percentageOrdered B y: Renetta Mary on 05-02-2023 Basophil percentage 3.7 mg/dL 2.5-4.9 [facility] Chloride [Moles/Vol] 105 mmol/L 98-107 [facility] Glucose [Mass/Vol] 74 mg/dL 74-106 [facility] Potassium [Moles/Vol] 4.5 mmol/L 3.5-5.1 [facility] Sodium [Moles/Vol] 139 mmol/L 136-145 [facility] Laboratory - Chemistry and C hemistry - challengeOrdered By: Renetta Mary on 05-02-2023 CO2 [Moles/Vol] 25.0 mmol/L 21.0-32.0 [facility] Urea nitrogen/Creatinine [Mass ratio] 26.3 mg/mg 10-20 [facility] No Panel InformationOrdered By: Renetta Mary on 05-02-2023 Estimated GFR (MDRD) Amer 50 mL/min >60 [facility] Comment on above: GFR Calc Estimated GFR (MDRD) Non-Af Amer 42 mL/min >60 [facility] Comment on above: Non- GFR Calc Serum or plasma calcium isaías urement (mass/volume)Ordered By: Renetta Mary on 05-02-2023 Calcium [Mass/Vol] 9.0 mg/dL 8.5-10.1 [facility] Serum or plasma creatinine m easurement (mass/volume)Ordered By: Renetta Mary on 05-02-2023 Creatinine [Mass/Vol] 1.33 mg/dL 0.55-1.02 [facility] Comment on above: The validity of the calculated GFR & GFRAA in patients over 70 years has not been determined. Clinical correlation is essential. Serum or plasma urea nitroge n measurement (mass/volume)Ordered By: Renetta Mary on 05-02-2023 Urea nitrogen [Mass/Vol] 35 mg/dL 7-18 [facility] Thin prep Papanicolaou smear with manual screeningOrdered By: Renetta Mary on 05-02-2023 Thin prep Papanicolaou smear with manual screening 3.2 g/dL 3.2-5.0 [facility] Basophil percentageOrdered B y: Renetta Mary on 03-07-2023 Basophil percentage 3.9 mg/dL 2.5-4.9 [facility] Chloride [Moles/Vol] 107 mmol/L 98-107 [facility] Glucose [Mass/Vol] 95 mg/dL 74-106 [facility] Potassium [Moles/Vol] 3.9 mmol/L 3.5-5.1 [facility] Sodium [Moles/Vol] 138 mmol/L 136-145 [facility] Laboratory - Chemistry and C hemistry - challengeOrdered By: Renetta Mary on 03-07-2023 CO2 [Moles/Vol] 26.0 mmol/L 21.0-32.0 [facility] Urea nitrogen/Creatinine [Mass ratio] 25.8 mg/mg 10-20 [facility] No Panel InformationOrdered By: Renetta Mary on 03-07-2023 Estimated GFR (MDRD) Amer 51 mL/min >60 [facility] Comment on above: GFR Calc Estimated GFR (MDRD) Non-Af Amer 42 mL/min >60 [facility] Comment on above: Non- GFR Calc Serum or plasma albumin isaías urement (mass/volume)Ordered By: Renetta Mary on 03-07-2023 Albumin [Mass/Vol] 3.5 g/dL 3.2-5.0 [facility] Serum or plasma calcium isaías urement (mass/volume)Ordered By: Renetta Mary on 03-07-2023 Calcium [Mass/Vol] 9.3 mg/dL 8.5-10.1 [facility] Serum or plasma creatinine m easurement (mass/volume)Ordered By: Renetta Mary on 03-07-2023 Creatinine [Mass/Vol] 1.32 mg/dL 0.55-1.02 [facility] Comment on above: The validity of the calculated GFR & GFRAA in patients over 70 years has not been determined. Clinical correlation is essential. Serum or plasma urea nitroge n measurement (mass/volume)Ordered By: Renetta Mary on 03-07-2023 Urea nitrogen [Mass/Vol] 34 mg/dL 7-18 [facility] Absolute lymphocyte countOrd ered By: Maritza Pedraza on 02-13-2023 Lymphocytes Auto (Unsp spec) [#/Vol] 2.14 10*3/uL 0.83-4.51 [facility] Basophil percentageOrdered B y: Jocelinstephanie Milo on 02-13-2023 Basophils/100 WBC (Bld) 1.2 % 0-1 [facility] Bilirubin [Mass/Vol] 0.50 mg/dL 0.20-1.00 [facility] Comment on above: For patients on eltr ombopag therapy, use of Dimension [place] TBIL is not recommended. Chloride [Moles/Vol] 102 mmol/L 98-107 [facility] Eosinophils/100 WBC (Bld) 3.6 % 0-5 [facility] Glucose [Mass/Vol] 81 mg/dL 74-106 [facility] Neutrophils (Bld) [#/Vol] 3.7 10*3/uL 2.0-7.7 [facility] Neutrophils/100 WBC (Bld) 54.2 % 47-70 [facility] Potassium [Moles/Vol] 3.6 mmol/L 3.5-5.1 [facility] Protein [Mass/Vol] 6.5 g/dL 6.4-8.2 [facility] Sodium [Moles/Vol] 137 mmol/L 136-145 [facility] WBC (Bld) [#/Vol] 6.8 10*3/uL 4.4-11.0 [facility] Blood erythrocytes count (nu mber/volume)Ordered By: Maritza Pedraza on 02-13-2023 RBC (Bld) [#/Vol] 3.84 10*6/uL 4.2-5.4 [facility] Blood hemoglobin measurement (mass/volume)Ordered By: Maritza Pedraza on 02-13-2023 Hemoglobin (Bld) [Mass/Vol] 12.1 g/dL 12.0-15. 0 [facility] Blood lymphocytes/100 leukoc ytesOrdered By: Maritza Pedraza on 02-13-2023 Lymphocytes/100 WBC (Bld) 31.7 % 19-41 [facility] Blood monocytes/100 leukocyt esOrdered By: Maritza Pedraza on 02-13-2023 Monocytes/100 WBC (Bld) 9.2 % 0-10 [facility] Blood platelet mean volumeOr dered By: Maritza Pedraza on 02-13-2023 Platelet mean volume (Bld) [Entitic vol] 10.5 fL 6.2-12.0 [facility] Determination of erythrocyte mean corpuscular volume (MCV)[facility] 02-[facility] MCV (RBC) [Entitic vol] 98.7 fL 81-99 [facility] Hematocrit Auto (Bld) [Volum e fraction][facility] Hematocrit (Bld) [Volume fraction] 37.9 % 37-47 [facility] Laboratory - Chemistry and C hemistry - challengeOrdered By: [facility] on 02-13-2023 ALP [Catalytic activity/Vol] 60 U/L 45-117 [facility] ALT [Catalytic activity/Vol] 22 U/L 13-56 [facility] CO2 [Moles/Vol] 27.0 mmol/L 21.0-32.0 [facility] Globulin (S) [Mass/Vol] 3.0 g/dL 2.2-4.2 [facility] Urea nitrogen/Creatinine [Mass ratio] 20.0 mg/mg 10-20 [facility] Laboratory - Hematology and Cell countsOrdered By: [facility] on 02-13-2023 Erythrocyte distribution width (RBC) [Entitic vol] 44.8 fL 35.1-43.9 [facility] Erythrocyte distribution width (RBC) [Ratio] 12.3 % 11.6-14.6 [facility] Immature granulocytes/100 WBC (Bld) 0.100 % 0.0-0.9 [facility] Comment on above: IG% - Immature Granu locytes (promyelocytes, myelocytes and metamyelocytes) > 1% indicates that a LEFT SHIFT is Present. MCH (RBC) [Entitic mass] 31.5 pg 27.0-32.0 [facility] Nucleated RBC/100 WBC (Bld) [Ratio] 0 % 0-5 [facility] MCHC Auto (RBC) [Mass/Vol]Or dered By: [facility] on 02-13-2023 MCHC (RBC) [Mass/Vol] 31.9 g/dL 32-36 [facility] No Panel InformationOrdered By: Maritza Pedraza on 02-13-2023 Estimated GFR (MDRD) Amer 49 mL/min >60 [facility] Comment on above: GFR Calc Estimated GFR (MDRD) Non-Af Amer 41 mL/min >60 [facility] Comment on above: Non- GFR Calc Platelets bldOrdered By: Malou Pedraza on 02-13-2023 Platelets (Bld) [#/Vol] 289 10*3/uL 150-450 [facility] Serum or plasma albumin isaías urement (mass/volume)Ordered By: Maritza Pedraza on 02-13-2023 Albumin [Mass/Vol] 3.5 g/dL 3.2-5.0 [facility] Serum or plasma albumin/glob ulin mass ratioOrdered By: Maritza Pedraza on 02-13-2023 Albumin/Globulin [Mass ratio] 1.2 {ratio} 0.9-2.4 [facility] Serum or plasma calcium isaías urement (mass/volume)Ordered By: Maritza Pedraza on 02-13-2023 Calcium [Mass/Vol] 8.3 mg/dL 8.5-10.1 [facility] Serum or plasma creatinine m easurement (mass/volume)Ordered By: Maritza Pedraza on 02-13-2023 Creatinine [Mass/Vol] 1.35 mg/dL 0.55-1.02 [facility] Comment on above: The validity of the calculated GFR & GFRAA in patients over 70 years has not been determined. Clinical correlation is essential. Serum or plasma urea nitroge n measurement (mass/volume)Ordered By: Maritza Pedraza on 02-13-2023 Urea nitrogen [Mass/Vol] 27 mg/dL 7-18 [facility] Thin prep Papanicolaou smear with manual screeningOrdered By: Maritza Pedraza on 02-13-2023 Thin prep Papanicolaou smear with manual screening 25 U/L 15-37 [facility] Thin prep Papanicolaou smear with manual screening 8 5-15 [facility] Absolute lymphocyte countOrd ered By: Malachi Lowry on 12-20-2022 Lymphocytes Auto (Unsp spec) [#/Vol] 1.72 10*3/uL 0.83-4.51 [facility] Basophil percentageOrdered B y: Malachi Lowry on 12-20-2022 Basophil percentage 3.6 mg/dL 2.5-4.9 [facility] Basophils/100 WBC (Bld) 1.6 % 0-1 [facility] Bilirubin [Mass/Vol] 0.40 mg/dL 0.20-1.00 [facility] Comment on above: For patients on eltr ombopag therapy, use of Dimension [place] TBIL is not recommended. Chloride [Moles/Vol] 106 mmol/L 98-107 [facility] Eosinophils/100 WBC (Bld) 3.6 % 0-5 [facility] Glucose [Mass/Vol] 96 mg/dL 74-106 [facility] Neutrophils (Bld) [#/Vol] 2.9 10*3/uL 2.0-7.7 [facility] Neutrophils/100 WBC (Bld) 52.2 % 47-70 [facility] Potassium [Moles/Vol] 3.9 mmol/L 3.5-5.1 [facility] Protein [Mass/Vol] 6.9 g/dL 6.4-8.2 [facility] Sodium [Moles/Vol] 138 mmol/L 136-145 [facility] WBC (Bld) [#/Vol] 5.6 10*3/uL 4.4-11.0 [facility] Blood erythrocytes count (nu mber/volume)Ordered By: Malachi Lowry on 12-20-2022 RBC (Bld) [#/Vol] 4.04 10*6/uL 4.2-5.4 [facility] Blood hemoglobin measurement (mass/volume)Ordered By: Malachi Lowry on 12-20-2022 Hemoglobin (Bld) [Mass/Vol] 12.7 g/dL 12.0-15. 0 [facility] Blood lymphocytes/100 leukoc ytesOrdered By: Malachi Lowry on 12-20-2022 Lymphocytes/100 WBC (Bld) 30.9 % 19-41 [facility] Blood monocytes/100 leukocyt esOrdered By: Malachi Lowry on 12-20-2022 Monocytes/100 WBC (Bld) 11.5 % 0-10 [facility] Blood platelet mean volumeOr dered By: Malachi Lowry on 12-20-2022 Platelet mean volume (Bld) [Entitic vol] 10.2 fL 6.2-12.0 [facility] Determination of erythrocyte mean corpuscular volume (MCV)Ordered By: Malachi Lowry on 12-20-2022 MCV (RBC) [Entitic vol] 100.2 fL 81-99 [facility] Hematocrit Auto (Bld) [Volum e fraction]Ordered By: Malachi Lowry on 12-20-2022 Hematocrit (Bld) [Volume fraction] 40.5 % 37-47 [facility] INR in Blood by Coagulation assayOrdered By: Malachi Lowry on 12-20-2022 INR Coag (Bld) [Relative time] 1.0 {INR} [facility] Laboratory - Chemistry and C hemistry - challengeOrdered By: Malachi Lowry on 12-20-2022 ALP [Catalytic activity/Vol] 64 U/L 45-117 [facility] ALT [Catalytic activity/Vol] 30 U/L 13-56 [facility] CO2 [Moles/Vol] 27.0 mmol/L 21.0-32.0 [facility] Globulin (S) [Mass/Vol] 3.4 g/dL 2.2-4.2 [facility] Urea nitrogen/Creatinine [Mass ratio] 23.8 mg/mg 10-20 [facility] Laboratory - CoagulationOrde red By: Malachi Lowry on 12-20-2022 aPTT Coag (Bld) [Time] 27.0 s 24.1-36.2 [facility] PT Coag (PPP) [Time] 13.0 s 11.7-14.9 [facility] Laboratory - Hematology and Cell countsOrdered By: Malachi Lowry on 12-20-2022 Erythrocyte distribution width (RBC) [Entitic vol] 48.5 fL 35.1-43.9 [facility] Erythrocyte distribution width (RBC) [Ratio] 13.0 % 11.6-14.6 [facility] Immature granulocytes/100 WBC (Bld) 0.200 % 0.0-0.9 [facility] Comment on above: IG% - Immature Granu locytes (promyelocytes, myelocytes and metamyelocytes) > 1% indicates that a LEFT SHIFT is Present. MCH (RBC) [Entitic mass] 31.4 pg 27.0-32.0 [facility] Nucleated RBC/100 WBC (Bld) [Ratio] 0 % 0-5 [facility] MCHC Auto (RBC) [Mass/Vol]Or dered By: Malachi Lowry on 12-20-2022 MCHC (RBC) [Mass/Vol] 31.4 g/dL 32-36 [facility] No Panel InformationOrdered By: Malachi Lowry on 12-20-2022 Estimated GFR (MDRD) Amer 52 mL/min >60 [facility] Comment on above: GFR Calc Estimated GFR (MDRD) Non-Af Amer 43 mL/min >60 [facility] Comment on above: Non- GFR Calc Platelets bldOrdered By: Baltazar Lowry on 12-20-2022 Platelets (Bld) [#/Vol] 286 10*3/uL 150-450 [facility] Serum or plasma albumin isaías urement (mass/volume)Ordered By: Malachi Lowry on 12-20-2022 Albumin [Mass/Vol] 3.5 g/dL 3.2-5.0 [facility] Serum or plasma albumin/glob ulin mass ratioOrdered By: Malachi Lowry on 12-20-2022 Albumin/Globulin [Mass ratio] 1.0 {ratio} 0.9-2.4 [facility] Serum or plasma calcium isaías urement (mass/volume)Ordered By: Malachi Lowry on 12-20-2022 Calcium [Mass/Vol] 8.8 mg/dL 8.5-10.1 [facility] Serum or plasma creatinine m easurement (mass/volume)Ordered By: Malachi Lowry on 12-20-2022 Creatinine [Mass/Vol] 1.30 mg/dL 0.55-1.02 [facility] Comment on above: The validity of the calculated GFR & GFRAA in patients over 70 years has not been determined. Clinical correlation is essential. Serum or plasma urea nitroge n measurement (mass/volume)Ordered By: Malachi Lowry on 12-20-2022 Urea nitrogen [Mass/Vol] 31 mg/dL 7-18 [facility] Thin prep Papanicolaou smear with manual screeningOrdered By: Malachi Lowry on 12-20-2022 Thin prep Papanicolaou smear with manual screening 30 U/L 15-37 [facility] Thin prep Papanicolaou smear with manual screening 5 5-15 [facility] Absolute lymphocyte countOrd ered By: Gabby Brown on 12-13-2022 Lymphocytes Auto (Unsp spec) [#/Vol] 1.90 10*3/uL 0.83-4.51 [facility] Basophil percentageOrdered B y: Gabby Brown on 12-13-2022 Basophils/100 WBC (Bld) 1.7 % 0-1 [facility] Chloride [Moles/Vol] 106 mmol/L 98-107 [facility] Eosinophils/100 WBC (Bld) 2.7 % 0-5 [facility] Glucose [Mass/Vol] 88 mg/dL 74-106 [facility] Neutrophils (Bld) [#/Vol] 3.5 10*3/uL 2.0-7.7 [facility] Neutrophils/100 WBC (Bld) 54.7 % 47-70 [facility] Potassium [Moles/Vol] 4.0 mmol/L 3.5-5.1 [facility] Sodium [Moles/Vol] 137 mmol/L 136-145 [facility] WBC (Bld) [#/Vol] 6.4 10*3/uL 4.4-11.0 [facility] Blood erythrocytes count (nu mber/volume)Ordered By: Gabby Brown on 12-13-2022 RBC (Bld) [#/Vol] 3.94 10*6/uL 4.2-5.4 [facility] Blood hemoglobin measurement (mass/volume)Ordered By: Gabby Brown on 12-13-2022 Hemoglobin (Bld) [Mass/Vol] 12.8 g/dL 12.0-15. 0 [facility] Blood lymphocytes/100 leukoc ytesOrdered By: Gabby rBown on 12-13-2022 Lymphocytes/100 WBC (Bld) 29.7 % 19-41 [facility] Blood monocytes/100 leukocyt esOrdered By: Gabby Brown on 12-13-2022 Monocytes/100 WBC (Bld) 11.0 % 0-10 [facility] Blood platelet mean volumeOr dered By: Gabby Brown on 12-13-2022 Platelet mean volume (Bld) [Entitic vol] 10.2 fL 6.2-12.0 [facility] Determination of erythrocyte mean corpuscular volume (MCV)Ordered By: Gabby Brown on 12-13-2022 MCV (RBC) [Entitic vol] 101.3 fL 81-99 [facility] Hematocrit Auto (Bld) [Volum e fraction]Ordered By: Gabby Brown on 12-13-2022 Hematocrit (Bld) [Volume fraction] 39.9 % 37-47 [facility] Laboratory - Chemistry and C hemistry - challengeOrdered By: Gabby Brown on 12-13-2022 CO2 [Moles/Vol] 26.0 mmol/L 21.0-32.0 [facility] Urea nitrogen/Creatinine [Mass ratio] 26.2 mg/mg 10-20 [facility] Laboratory - Hematology and Cell countsOrdered By: Gabby Brown on 12-13-2022 Erythrocyte distribution width (RBC) [Entitic vol] 49.3 fL 35.1-43.9 [facility] Erythrocyte distribution width (RBC) [Ratio] 13.0 % 11.6-14.6 [facility] Immature granulocytes/100 WBC (Bld) 0.200 % 0.0-0.9 [facility] Comment on above: IG% - Immature Granu locytes (promyelocytes, myelocytes and metamyelocytes) > 1% indicates that a LEFT SHIFT is Present. MCH (RBC) [Entitic mass] 32.5 pg 27.0-32.0 [facility] Nucleated RBC/100 WBC (Bld) [Ratio] 0 % 0-5 [facility] MCHC Auto (RBC) [Mass/Vol]Or dered By: Gabby Brown on 12-13-2022 MCHC (RBC) [Mass/Vol] 32.1 g/dL 32-36 [facility] No Panel InformationOrdered By: Gabby Brown on 12-13-2022 Estimated GFR (MDRD) Amer 56 mL/min >60 [facility] Comment on above: GFR Calc Estimated GFR (MDRD) Non-Af Amer 46 mL/min >60 [facility] Comment on above: Non- GFR Calc Thyroid Stimulating Hormone (TSH) 1.80 uIU/mL 0.358-3.74 [facility] Vitamin D 25-Hydroxy 48.9 ng/mL [facility] Comment on above: Vitamin D 25(OH) Sta tus Range Deficiency <20 ng/mL (50nmol/L) Insufficiency 20 - 30 ng/mL (50 - 75 nmol/L) Sufficiency 30 - 100 ng/mL (75 - 250 nmol/L) Toxicity >100 ng/mL (>250 nmol/L) Platelets bldOrdered By: Alonzo Brown on 12-13-2022 Platelets (Bld) [#/Vol] 291 10*3/uL 150-450 [facility] Serum or plasma calcium isaías urement (mass/volume)Ordered By: Gabby Brown on 12-13-2022 Calcium [Mass/Vol] 9.2 mg/dL 8.5-10.1 [facility] Serum or plasma creatinine m easurement (mass/volume)Ordered By: Gabby Brown on 12-13-2022 Creatinine [Mass/Vol] 1.22 mg/dL 0.55-1.02 [facility] Comment on above: The validity of the calculated GFR & GFRAA in patients over 70 years has not been determined. Clinical correlation is essential. Serum or plasma urea nitroge n measurement (mass/volume)Ordered By: Gabby Brown on 12-13-2022 Urea nitrogen [Mass/Vol] 32 mg/dL 7-18 [facility] Thin prep Papanicolaou smear with manual screeningOrdered By: Gabby Brown on 12-13-2022 Thin prep Papanicolaou smear with manual screening 5 5-15 [facility] Basophil percentageOrdered B y: Renetta Mary on 11-20-2022 Basophil percentage 3.2 mg/dL 2.5-4.9 [facility] Chloride [Moles/Vol] 101 mmol/L 98-107 [facility] Glucose [Mass/Vol] 87 mg/dL 74-106 [facility] Potassium [Moles/Vol] 3.8 mmol/L 3.5-5.1 [facility] Sodium [Moles/Vol] 137 mmol/L 136-145 [facility] Laboratory - Chemistry and C hemistry - challengeOrdered By: Renetta Mary on 11-20-2022 CO2 [Moles/Vol] 30.0 mmol/L 21.0-32.0 [facility] Urea nitrogen/Creatinine [Mass ratio] 26.4 mg/mg 10- [facility] No Panel InformationOrdered By: Renetta Mary on 11-20-2022 Estimated GFR (MDRD) Amer 56 mL/min >60 [facility] Comment on above: GFR Calc Estimated GFR (MDRD) Non-Af Amer 46 mL/min >60 [facility] Comment on above: Non- GFR Calc Serum or plasma albumin isaías urement (mass/volume)Ordered By: Renetta Mary on 11-20-2022 Albumin [Mass/Vol] 3.3 g/dL 3.2-5.0 [facility] Serum or plasma calcium isaías urement (mass/volume)Ordered By: Renetta Mary on 11-20-2022 Calcium [Mass/Vol] 8.6 mg/dL 8.5-10.1 [facility] Serum or plasma creatinine m easurement (mass/volume)Ordered By: Renetta Mary on 11-20-2022 Creatinine [Mass/Vol] 1.21 mg/dL 0.55-1.02 [facility] Comment on above: The validity of the calculated GFR & GFRAA in patients over 70 years has not been determined. Clinical correlation is essential. Serum or plasma urea nitroge n measurement (mass/volume)Ordered By: Renetta Mary on 11-20-2022 Urea nitrogen [Mass/Vol] 32 mg/dL 09-19 [facility] Basophil percentageOrdered B y: Renetta Mary on 10-11-2022 Basophil percentage 4.0 mg/dL 2.5-4.9 [facility] Chloride [Moles/Vol] 98 mmol/L 98-107 [facility] Glucose [Mass/Vol] 101 mg/dL 74-106 [facility] Comment on above: Fasting Glucose resu lt from 100 to 125 mg/dL suggests IMPAIRED HOMEOSTASIS per A.D.A. criteria. Potassium [Moles/Vol] 4.5 mmol/L 3.5-5.1 [facility] Sodium [Moles/Vol] 131 mmol/L 136-145 [facility] WBC (Bld) [#/Vol] 7.9 10*3/uL 4.4-11.0 [facility] Blood erythrocytes count (nu mber/volume)Ordered By: Renetta Mary on 10-11-2022 RBC (Bld) [#/Vol] 3.86 10*6/uL 4.2-5.4 [facility] Blood hemoglobin measurement (mass/volume)Ordered By: Renetta Mary on 10-11-2022 Hemoglobin (Bld) [Mass/Vol] 12.5 g/dL 12.0-15. 0 [facility] Blood platelet mean volumeOr dered By: Renetta Mary on 10-11-2022 Platelet mean volume (Bld) [Entitic vol] 10.0 fL 6.2-12.0 [facility] Determination of erythrocyte mean corpuscular volume (MCV)Ordered By: Renetta Mary on 10-11-2022 MCV (RBC) [Entitic vol] 96.6 fL 81-99 [facility] Hematocrit Auto (Bld) [Volum e fraction]Ordered By: Renetta Mary on 10-11-2022 Hematocrit (Bld) [Volume fraction] 37.3 % 37-47 [facility] Iron measurement (mass/mass) Ordered By: Renetta Mary on 10-11-2022 Iron (Unsp spec) [Mass/Mass] 106 ug/dL 50-170 [facility] Laboratory - Chemistry and C hemistry - challengeOrdered By: Renetta Mary on 10-11-2022 CO2 [Moles/Vol] 25.0 mmol/L 21.0-32.0 [facility] Urea nitrogen/Creatinine [Mass ratio] 23.7 mg/mg 10-20 [facility] Laboratory - Hematology and Cell countsOrdered By: Renetta Mary on 10-11-2022 Erythrocyte distribution width (RBC) [Entitic vol] 42.5 fL 35.1-43.9 [facility] Erythrocyte distribution width (RBC) [Ratio] 12.2 % 11.6-14.6 [facility] MCH (RBC) [Entitic mass] 32.4 pg 27.0-32.0 [facility] MCHC Auto (RBC) [Mass/Vol]Or dered By: Renetta Mary on 10-11-2022 MCHC (RBC) [Mass/Vol] 33.5 g/dL 32-36 [facility] No Panel InformationOrdered By: Renetta Mary on 10-11-2022 Estimated GFR (MDRD) Amer 48 mL/min >60 [facility] Comment on above: GFR Calc Estimated GFR (MDRD) Non-Af Amer 40 mL/min >60 [facility] Comment on above: Non- GFR Calc Total Iron Binding Capacity 380 ug/dL 250-450 [facility] Platelets bldOrdered By: Xenia Mary on 10-11-2022 Platelets (Bld) [#/Vol] 306 10*3/uL 150-450 [facility] Serum or plasma albumin isaías urement (mass/volume)Ordered By: Renetta Mary on 10-11-2022 Albumin [Mass/Vol] 3.6 g/dL 3.2-5.0 [facility] Serum or plasma calcium isaías urement (mass/volume)Ordered By: Renetta Mary on 10-11-2022 Calcium [Mass/Vol] 8.9 mg/dL 8.5-10.1 [facility] Serum or plasma creatinine m easurement (mass/volume)Ordered By: Renetta Mary on 10-11-2022 Creatinine [Mass/Vol] 1.39 mg/dL 0.55-1.02 [facility] Comment on above: The validity of the calculated GFR & GFRAA in patients over 70 years has not been determined. Clinical correlation is essential. Serum or plasma ferritin davie surement (mass/volume)Ordered By: Renetta Mary on 10-11-2022 Ferritin [Mass/Vol] 27 ng/mL 8-252 [facility] Serum or plasma iron saturat ion measurement (mass fraction)Ordered By: Renetta Mary on 10-11-2022 Iron saturation [Mass fraction] 27.9 % 15.0-55.0 [facility] Serum or plasma urea nitroge n measurement (mass/volume)Ordered By: Renetta Mary on 10-11-2022 Urea nitrogen [Mass/Vol] 33 mg/dL 7-18 [facility] Blood hemoglobin measurement (mass/volume)Ordered By: Renetta Mary on 09-06-2022 Hemoglobin (Bld) [Mass/Vol] 11.5 g/dL 12.0-15. 0 [facility] Basophil percentageOrdered B y: Dr. Mary on 08-22-2022 Basophil percentage 4.0 mg/dL 2.5-4.9 [facility] Chloride [Moles/Vol] 103 mmol/L 98-107 [facility] Glucose [Mass/Vol] 95 mg/dL 74-106 [facility] Potassium [Moles/Vol] 4.1 mmol/L 3.5-5.1 [facility] Sodium [Moles/Vol] 135 mmol/L 136-145 [facility] WBC (Bld) [#/Vol] 9.8 10*3/uL 4.4-11.0 [facility] Blood erythrocytes count (nu mber/volume)Ordered By: Dr. Mary on 08-22-2022 RBC (Bld) [#/Vol] 3.78 10*6/uL 4.2-5.4 [facility] Blood hemoglobin measurement (mass/volume)Ordered By: Dr. Mary on 08-22-2022 Hemoglobin (Bld) [Mass/Vol] 12.1 g/dL 12.0-15. 0 [facility] Blood platelet mean volumeOr dered By: Dr. Mary on 08-22-2022 Platelet mean volume (Bld) [Entitic vol] 10.1 fL 6.2-12.0 [facility] Determination of erythrocyte mean corpuscular volume (MCV)Ordered By: Dr. Mary on 08-22-2022 MCV (RBC) [Entitic vol] 99.5 fL 81-99 [facility] Hematocrit Auto (Bld) [Volum e fraction]Ordered By: Dr. Mary on 08-22-2022 Hematocrit (Bld) [Volume fraction] 37.6 % 37-47 [facility] Laboratory - Chemistry and C hemistry - challengeOrdered By: Dr. Mary on 08-22-2022 CO2 [Moles/Vol] 27.0 mmol/L 21.0-32.0 [facility] Urea nitrogen/Creatinine [Mass ratio] 30.7 mg/mg 10-20 [facility] Laboratory - Hematology and Cell countsOrdered By: Dr. Mary on 08-22-2022 Erythrocyte distribution width (RBC) [Entitic vol] 47.8 fL 35.1-43.9 [facility] Erythrocyte distribution width (RBC) [Ratio] 13.2 % 11.6-14.6 [facility] MCH (RBC) [Entitic mass] 32.0 pg 27.0-32.0 [facility] MCHC Auto (RBC) [Mass/Vol]Or dered By: Dr. Mary on 08-22-2022 MCHC (RBC) [Mass/Vol] 32.2 g/dL 32-36 [facility] No Panel InformationOrdered By: Dr. Mary on 08-22-2022 Estimated GFR (MDRD) Amer 49 mL/min >60 [facility] Comment on above: GFR Calc Estimated GFR (MDRD) Non-Af Amer 40 mL/min >60 [facility] Comment on above: Non- GFR Calc Platelets bldOrdered By: Dr. Mary on 08-22-2022 Platelets (Bld) [#/Vol] 329 10*3/uL 150-450 [facility] Serum or plasma albumin isaías urement (mass/volume)Ordered By: Dr. Mary on 08-22-2022 Albumin [Mass/Vol] 3.4 g/dL 3.2-5.0 [facility] Serum or plasma calcium isaías urement (mass/volume)Ordered By: Dr. Mary on 08-22-2022 Calcium [Mass/Vol] 9.1 mg/dL 8.5-10.1 [facility] Serum or plasma creatinine m easurement (mass/volume)Ordered By: Dr. Mary on 08-22-2022 Creatinine [Mass/Vol] 1.37 mg/dL 0.55-1.02 [facility] Comment on above: The validity of the calculated GFR & GFRAA in patients over 70 years has not been determined. Clinical correlation is essential. Serum or plasma urea nitroge n measurement (mass/volume)Ordered By: Dr. Mary on 08-22-2022 Urea nitrogen [Mass/Vol] 42 mg/dL 7-18 [facility] Basophil percentageOrdered B y: Dr. Mary on 08-07-2022 Basophil percentage 3.5 mg/dL 2.5-4.9 [facility] Chloride [Moles/Vol] 106 mmol/L 98-107 [facility] Glucose [Mass/Vol] 90 mg/dL 74-106 [facility] Potassium [Moles/Vol] 3.7 mmol/L 3.5-5.1 [facility] Sodium [Moles/Vol] 134 mmol/L 136-145 [facility] Laboratory - Chemistry and C hemistry - challengeOrdered By: Dr. Mary on 08-07-2022 CO2 [Moles/Vol] 24.0 mmol/L 21.0-32.0 [facility] Urea nitrogen/Creatinine [Mass ratio] 25.9 mg/mg 10-20 [facility] No Panel InformationOrdered By: Dr. Mary on 08-07-2022 Estimated GFR (MDRD) Amer 46 mL/min >60 [facility] Comment on above: GFR Calc Estimated GFR (MDRD) Non-Af Amer 38 mL/min >60 [facility] Comment on above: Non- GFR Calc Serum or plasma albumin isaías urement (mass/volume)Ordered By: Dr. Mary on 08-07-2022 Albumin [Mass/Vol] 3.5 g/dL 3.2-5.0 [facility] Serum or plasma calcium isaías urement (mass/volume)Ordered By: Dr. Mary on 08-07-2022 Calcium [Mass/Vol] 8.9 mg/dL 8.5-10.1 [facility] Serum or plasma creatinine m easurement (mass/volume)Ordered By: Dr. Mary on 08-07-2022 Creatinine [Mass/Vol] 1.43 mg/dL 0.55-1.02 [facility] Comment on above: The validity of the calculated GFR & GFRAA in patients over 70 years has not been determined. Clinical correlation is essential. Serum or plasma urea nitroge n measurement (mass/volume)Ordered By: Dr. Mary on 08-07-2022 Urea nitrogen [Mass/Vol] 37 mg/dL 7-18 [facility] Basophil percentageOrdered B y: Dr. Mary on 07-24-2022 Basophil percentage 3.4 mg/dL 2.5-4.9 [facility] Chloride [Moles/Vol] 105 mmol/L 98-107 [facility] Glucose [Mass/Vol] 93 mg/dL 74-106 [facility] Potassium [Moles/Vol] 3.8 mmol/L 3.5-5.1 [facility] Sodium [Moles/Vol] 139 mmol/L 136-145 [facility] Laboratory - Chemistry and C hemistry - challengeOrdered By: Dr. Mary on 07-24-2022 CO2 [Moles/Vol] 24.0 mmol/L 21.0-32.0 [facility] Urea nitrogen/Creatinine [Mass ratio] 23.4 mg/mg 10-20 [facility] No Panel InformationOrdered By: Dr. Mary on 07-24-2022 Estimated GFR (MDRD) Amer 46 mL/min >60 [facility] Comment on above: GFR Calc Estimated GFR (MDRD) Non-Af Amer 38 mL/min >60 [facility] Comment on above: Non- GFR Calc Serum or plasma albumin isaías urement (mass/volume)Ordered By: Dr. Mary on 07-24-2022 Albumin [Mass/Vol] 3.5 g/dL 3.2-5.0 [facility] Serum or plasma calcium isaías urement (mass/volume)Ordered By: Dr. Mary on 07-24-2022 Calcium [Mass/Vol] 9.0 mg/dL 8.5-10.1 [facility] Serum or plasma creatinine m easurement (mass/volume)Ordered By: Dr. Mary on 07-24-2022 Creatinine [Mass/Vol] 1.45 mg/dL 0.55-1.02 [facility] Comment on above: The validity of the calculated GFR & GFRAA in patients over 70 years has not been determined. Clinical correlation is essential. Serum or plasma urea nitroge n measurement (mass/volume)Ordered By: Dr. Mary on 07-24-2022 Urea nitrogen [Mass/Vol] 34 mg/dL 7-18 [facility] Basophil percentageOrdered B y: Dr. Mary on 07-11-2022 Basophil percentage 3.0 mg/dL 2.5-4.9 [facility] Chloride [Moles/Vol] 109 mmol/L 98-107 [facility] Glucose [Mass/Vol] 77 mg/dL 74-106 [facility] Potassium [Moles/Vol] 3.8 mmol/L 3.5-5.1 [facility] Sodium [Moles/Vol] 139 mmol/L 136-145 [facility] Laboratory - Chemistry and C hemistry - challengeOrdered By: Dr. Mary on 07-11-2022 CO2 [Moles/Vol] 24.0 mmol/L 21.0-32.0 [facility] Urea nitrogen/Creatinine [Mass ratio] 24.5 mg/mg 10-20 [facility] No Panel InformationOrdered By: Dr. Mary on 07-11-2022 Estimated GFR (MDRD) Amer 44 mL/min >60 [facility] Comment on above: GFR Calc Estimated GFR (MDRD) Non-Af Amer 36 mL/min >60 [facility] Comment on above: Non- GFR Calc Serum or plasma albumin isaías urement (mass/volume)Ordered By: Dr. Mary on 07-11-2022 Albumin [Mass/Vol] 3.2 g/dL 3.2-5.0 [facility] Serum or plasma calcium isaías urement (mass/volume)Ordered By: Dr. Mary on 07-11-2022 Calcium [Mass/Vol] 8.8 mg/dL 8.5-10.1 [facility] Serum or plasma creatinine m easurement (mass/volume)Ordered By: Dr. Mary on 07-11-2022 Creatinine [Mass/Vol] 1.51 mg/dL 0.55-1.02 [facility] Comment on above: The validity of the calculated GFR & GFRAA in patients over 70 years has not been determined. Clinical correlation is essential. Serum or plasma urea nitroge n measurement (mass/volume)Ordered By: Dr. Mary on 07-11-2022 Urea nitrogen [Mass/Vol] 37 mg/dL 7-18 [facility] Basophil percentageOrdered B y: Dr. Huerta on 06-26-2022 Chloride [Moles/Vol] 113 mmol/L 98-107 [facility] Glucose [Mass/Vol] 92 mg/dL 74-106 [facility] Potassium [Moles/Vol] 3.5 mmol/L 3.5-5.1 [facility] Sodium [Moles/Vol] 138 mmol/L 136-145 [facility] WBC (Bld) [#/Vol] 7.0 10*3/uL 4.4-11.0 [facility] Blood erythrocytes count (nu mber/volume)Ordered By: Dr. Huerta on 06-26-2022 RBC (Bld) [#/Vol] 3.74 10*6/uL 4.2-5.4 [facility] Blood hemoglobin measurement (mass/volume)Ordered By: Dr. Huerta on 06-26-2022 Hemoglobin (Bld) [Mass/Vol] 11.8 g/dL 12.0-15. 0 [facility] Blood platelet mean volumeOr dered By: Dr. Huerta on 06-26-2022 Platelet mean volume (Bld) [Entitic vol] 10.2 fL 6.2-12.0 [facility] Determination of erythrocyte mean corpuscular volume (MCV)Ordered By: Dr. Huerta on 06-26-2022 MCV (RBC) [Entitic vol] 99.7 fL 81-99 [facility] Hematocrit Auto (Bld) [Volum e fraction]Ordered By: Dr. Huerta on 06-26-2022 Hematocrit (Bld) [Volume fraction] 37.3 % 37-47 [facility] Iron measurement (mass/mass) Ordered By: Dr. Huerta on 06-26-2022 Iron (Unsp spec) [Mass/Mass] 60 ug/dL 50-170 [facility] Laboratory - Chemistry and C hemistry - challengeOrdered By: Dr. Huerta on 06-26-2022 CO2 [Moles/Vol] 23.0 mmol/L 21.0-32.0 [facility] Urea nitrogen/Creatinine [Mass ratio] 20.8 mg/mg 10-20 [facility] Laboratory - Hematology and Cell countsOrdered By: Dr. Huerta on 06-26-2022 Erythrocyte distribution width (RBC) [Entitic vol] 47.8 fL 35.1-43.9 [facility] Erythrocyte distribution width (RBC) [Ratio] 13.1 % 11.6-14.6 [facility] MCH (RBC) [Entitic mass] 31.6 pg 27.0-32.0 [facility] MCHC Auto (RBC) [Mass/Vol]Or dered By: Dr. Huerta on 06-26-2022 MCHC (RBC) [Mass/Vol] 31.6 g/dL 32-36 [facility] No Panel InformationOrdered By: Dr. Huerta on 06-26-2022 Estimated GFR (MDRD) Amer 41 mL/min >60 [facility] Comment on above: GFR Calc Estimated GFR (MDRD) Non-Af Amer 34 mL/min >60 [facility] Comment on above: Non- GFR Calc Total Iron Binding Capacity 285 ug/dL 250-450 [facility] Platelets bldOrdered By: Dr. Huerta on 06-26-2022 Platelets (Bld) [#/Vol] 327 10*3/uL 150-450 [facility] Serum or plasma calcium isaías urement (mass/volume)Ordered By: Dr. Huerta on 06-26-2022 Calcium [Mass/Vol] 8.8 mg/dL 8.5-10.1 [facility] Serum or plasma creatinine m easurement (mass/volume)Ordered By: Dr. Huerta on 06-26-2022 Creatinine [Mass/Vol] 1.59 mg/dL 0.55-1.02 [facility] Comment on above: The validity of the calculated GFR & GFRAA in patients over 70 years has not been determined. Clinical correlation is essential. Serum or plasma ferritin davie surement (mass/volume)Ordered By: Dr. Huerta on 06-26-2022 Ferritin [Mass/Vol] 50 ng/mL 8-252 [facility] Serum or plasma iron saturat ion measurement (mass fraction)Ordered By: Dr. Huerta on 06-26-2022 Iron saturation [Mass fraction] 21.1 % 15.0-55.0 [facility] Serum or plasma urea nitroge n measurement (mass/volume)Ordered By: Dr. Huerta on 06-26-2022 Urea nitrogen [Mass/Vol] 33 mg/dL 7-18 [facility] Thin prep Papanicolaou smear with manual screeningOrdered By: Dr. Huerta on 06-26-2022 Thin prep Papanicolaou smear with manual screening 2 5-15 [facility] Basophil percentageOrdered B y: Dr. Mary on 06-15-2022 Basophil percentage 0 SEEN /hpf 0-5 [facility] Bilirubin Test strip Ql (U)O rdered By: Dr. Mary on 06-15-2022 Bilirubin Ql (U) Negative Negative [facility] Ketones Test strip Ql (U)Ord ered By: Dr. Mary on 06-15-2022 Ketones Ql (U) Negative Negative [facility] Mucus LM Ql (Urine sed)Order ed By: Dr. Mary on 06-15-2022 Mucus Ql (Urine sed) 0 SEEN /hpf [facility] Nitrite Test strip Ql (U)Ord ered By: Dr. Mary on 06-15-2022 Nitrite Ql (U) Negative Negative [facility] Protein Test strip Ql (U)Ord ered By: Dr. Mary on 06-15-2022 Protein Ql (U) 15 mg/dl Negative [facility] Squamous epithelial cells de tection in urine sediment by light microscopyOrdered By: Dr. Mary on 06-15-2022 Epithelial cells.squamous LM Ql (Urine sed) 0 SEEN /hpf 5-10 [facility] Urine blood detectionOrdered By: Dr. Mary on 06-15-2022 RBC Ql (U) Negative Negative [facility] RBC Ql (U) 0 SEEN /hpf 0-5 [facility] Urine clarityOrdered By: Dr. Mary on 06-15-2022 Clarity (U) Clear Clear [facility] Urine color determinationOrd ered By: Dr. Mary on 06-15-2022 Color (U) Yellow Yellow [facility] Urine glucose detectionOrder ed By: Dr. Mary on 06-15-2022 Glucose Ql (U) Normal mg/dl Normal [facility] Urine leukocyte esterase det ection by dipstickOrdered By: Dr. Mary on 06-15-2022 Leukocyte esterase Test strip Ql (U) Negative Negative [facility] Urine pHOrdered By: Dr. Mary on 06-15-2022 pH (U) 6.0 [pH] 5.0 - 8.0 [facility] Urine sediment bacteria coun t by microscopy (number/high power field)Ordered By: Dr. Mary on 06-15-2022 Bacteria LM.HPF (Urine sed) [#/Area] 0 /[HPF] None Seen [facility] Urine specific gravity measu rementOrdered By: Dr. Mary on 06-15-2022 Specific gravity (U) [Rel density] 1.010 1.002-1.03 0 [facility] Urobilinogen Auto test strip Ql (U)Ordered By: Dr. Mary on 06-15-2022 Urobilinogen Ql (U) Normal mg/dl Normal [facility] Basophil percentageOrdered B y: Dr. Mary on 06-12-2022 Basophil percentage 2.8 mg/dL 2.5-4.9 [facility] Chloride [Moles/Vol] 111 mmol/L 98-107 [facility] Glucose [Mass/Vol] 87 mg/dL 74-106 [facility] Potassium [Moles/Vol] 3.9 mmol/L 3.5-5.1 [facility] Sodium [Moles/Vol] 140 mmol/L 136-145 [facility] Laboratory - Chemistry and C hemistry - challengeOrdered By: Dr. Mary on 06-12-2022 CO2 [Moles/Vol] 22.0 mmol/L 21.0-32.0 [facility] Urea nitrogen/Creatinine [Mass ratio] 20.1 mg/mg 10-20 [facility] No Panel InformationOrdered By: Dr. Mary on 06-12-2022 Estimated GFR (MDRD) Amer 37 mL/min >60 [facility] Comment on above: GFR Calc Estimated GFR (MDRD) Non-Af Amer 31 mL/min >60 [facility] Comment on above: Non- GFR Calc Vitamin D 25-Hydroxy 39.6 ng/mL [facility] Comment on above: Vitamin D 25(OH) Sta tus Range Deficiency <20 ng/mL (50nmol/L) Insufficiency 20 - 30 ng/mL (50 - 75 nmol/L) Sufficiency 30 - 100 ng/mL (75 - 250 nmol/L) Toxicity >100 ng/mL (>250 nmol/L) Serum or plasma albumin isaías urement (mass/volume)Ordered By: Dr. aMry on 06-12-2022 Albumin [Mass/Vol] 3.5 g/dL 3.2-5.0 [facility] Serum or plasma calcium isaías urement (mass/volume)Ordered By: Dr. Mary on 06-12-2022 Calcium [Mass/Vol] 8.7 mg/dL 8.5-10.1 [facility] Serum or plasma creatinine m easurement (mass/volume)Ordered By: Dr. Mary on 06-12-2022 Creatinine [Mass/Vol] 1.74 mg/dL 0.55-1.02 [facility] Comment on above: The validity of the calculated GFR & GFRAA in patients over 70 years has not been determined. Clinical correlation is essential. Serum or plasma urea nitroge n measurement (mass/volume)Ordered By: Dr. Mary on 06-12-2022 Urea nitrogen [Mass/Vol] 35 mg/dL 7-18 [facility] Basophil percentageOrdered B y: Dr. Mary on 05-30-2022 Basophil percentage 0 SEEN /hpf 0-5 [facility] Basophil percentage 2.9 mg/dL 2.5-4.9 [facility] Chloride [Moles/Vol] 109 mmol/L 98-107 [facility] Glucose [Mass/Vol] 90 mg/dL 74-106 [facility] Potassium [Moles/Vol] 3.2 mmol/L 3.5-5.1 [facility] Sodium [Moles/Vol] 136 mmol/L 136-145 [facility] Bilirubin Test strip Ql (U)O rdered By: Dr. Mary on 05-30-2022 Bilirubin Ql (U) Negative Negative [facility] Ketones Test strip Ql (U)Ord ered By: Dr. Mary on 05-30-2022 Ketones Ql (U) Negative Negative [facility] Laboratory - Chemistry and C hemistry - challengeOrdered By: Dr. Mary on 05-30-2022 CO2 [Moles/Vol] 23.0 mmol/L 21.0-32.0 [facility] Urea nitrogen/Creatinine [Mass ratio] 24.6 mg/mg 10-20 [facility] Mucus LM Ql (Urine sed)Order ed By: Dr. Mary on 05-30-2022 Mucus Ql (Urine sed) 0 SEEN /hpf [facility] Nitrite Test strip Ql (U)Ord ered By: Dr. Mary on 05-30-2022 Nitrite Ql (U) Negative Negative [facility] No Panel InformationOrdered By: Dr. Mary on 05-30-2022 Estimated GFR (MDRD) Amer 37 mL/min >60 [facility] Comment on above: GFR Calc Estimated GFR (MDRD) Non-Af Amer 30 mL/min >60 [facility] Comment on above: Non- GFR Calc Protein Test strip Ql (U)Ord ered By: Dr. Mary on 05-30-2022 Protein Ql (U) 30 mg/dl Negative [facility] Serum or plasma albumin isaías urement (mass/volume)Ordered By: Dr. Mary on 05-30-2022 Albumin [Mass/Vol] 3.3 g/dL 3.2-5.0 [facility] Serum or plasma calcium isaías urement (mass/volume)Ordered By: Dr. Mary on 05-30-2022 Calcium [Mass/Vol] 8.5 mg/dL 8.5-10.1 [facility] Serum or plasma creatinine m easurement (mass/volume)Ordered By: Dr. Mary on 05-30-2022 Creatinine [Mass/Vol] 1.75 mg/dL 0.55-1.02 [facility] Comment on above: The validity of the calculated GFR & GFRAA in patients over 70 years has not been determined. Clinical correlation is essential. Serum or plasma urea nitroge n measurement (mass/volume)Ordered By: Dr. Mary on 05-30-2022 Urea nitrogen [Mass/Vol] 43 mg/dL 7-18 [facility] Squamous epithelial cells de tection in urine sediment by light microscopyOrdered By: Dr. Mary on 05-30-2022 Epithelial cells.squamous LM Ql (Urine sed) 0 SEEN /hpf 5-10 [facility] Urine blood detectionOrdered By: Dr. Mary on 05-30-2022 RBC Ql (U) Negative Negative [facility] RBC Ql (U) 0 SEEN /hpf 0-5 [facility] Urine clarityOrdered By: Dr. Mary on 05-30-2022 Clarity (U) Clear Clear [facility] Urine color determinationOrd ered By: Dr. Mary on 05-30-2022 Color (U) Yellow Yellow [facility] Urine glucose detectionOrder ed By: Dr. Mary on 05-30-2022 Glucose Ql (U) Normal mg/dl Normal [facility] Urine leukocyte esterase det ection by dipstickOrdered By: Dr. Mary on 05-30-2022 Leukocyte esterase Test strip Ql (U) Negative Negative [facility] Urine pHOrdered By: Dr. Mray on 05-30-2022 pH (U) 6.5 [pH] 5.0 - 8.0 [facility] Urine sediment bacteria coun t by microscopy (number/high power field)Ordered By: Dr. Mary on 05-30-2022 Bacteria LM.HPF (Urine sed) [#/Area] 0 /[HPF] None Seen [facility] Urine specific gravity measu rementOrdered By: Dr. Mary on 05-30-2022 Specific gravity (U) [Rel density] 1.005 1.002-1.03 0 [facility] Urobilinogen Auto test strip Ql (U)Ordered By: Dr. Mary on 05-30-2022 Urobilinogen Ql (U) Normal mg/dl Normal [facility] Basophil percentageOrdered B y: Dr. Mary on 05-15-2022 Basophil percentage 2.7 mg/dL 2.5-4.9 [facility] Chloride [Moles/Vol] 109 mmol/L 98-107 [facility] Glucose [Mass/Vol] 95 mg/dL 74-106 [facility] Potassium [Moles/Vol] 3.9 mmol/L 3.5-5.1 [facility] Sodium [Moles/Vol] 139 mmol/L 136-145 [facility] WBC (Bld) [#/Vol] 7.9 10*3/uL 4.4-11.0 [facility] Blood erythrocytes count (nu mber/volume)Ordered By: Dr. Mary on 05-15-2022 RBC (Bld) [#/Vol] 3.44 10*6/uL 4.2-5.4 [facility] Blood hemoglobin measurement (mass/volume)Ordered By: Dr. Mary on 05-15-2022 Hemoglobin (Bld) [Mass/Vol] 11.1 g/dL 12.0-15. 0 [facility] Blood platelet mean volumeOr dered By: Dr. Mary on 05-15-2022 Platelet mean volume (Bld) [Entitic vol] 10.5 fL 6.2-12.0 [facility] Determination of erythrocyte mean corpuscular volume (MCV)Ordered By: Dr. Mary on 05-15-2022 MCV (RBC) [Entitic vol] 100.3 fL 81-99 [facility] Hematocrit Auto (Bld) [Volum e fraction]Ordered By: Dr. Mary on 05-15-2022 Hematocrit (Bld) [Volume fraction] 34.5 % 37-47 [facility] Laboratory - Chemistry and C hemistry - challengeOrdered By: Dr. Mary on 05-15-2022 CO2 [Moles/Vol] 21.0 mmol/L 21.0-32.0 [facility] Urea nitrogen/Creatinine [Mass ratio] 16.2 mg/mg 10-20 [facility] Laboratory - Hematology and Cell countsOrdered By: Dr. Mary on 05-15-2022 Erythrocyte distribution width (RBC) [Entitic vol] 45.3 fL 35.1-43.9 [facility] Erythrocyte distribution width (RBC) [Ratio] 12.3 % 11.6-14.6 [facility] MCH (RBC) [Entitic mass] 32.3 pg 27.0-32.0 [facility] MCHC Auto (RBC) [Mass/Vol]Or dered By: Dr. Mary on 05-15-2022 MCHC (RBC) [Mass/Vol] 32.2 g/dL 32-36 [facility] No Panel InformationOrdered By: Dr. Mary on 05-15-2022 Estimated GFR (MDRD) Amer 33 mL/min >60 [facility] [facility] Comment on above: GFR Calc Estimated GFR (MDRD) Non-Af Amer 27 mL/min >60 [facility] Comment on above: Non- GFR Calc Platelets bldOrdered By: Dr. Mary on 05-15-2022 Platelets (Bld) [#/Vol] 315 10*3/uL 150-450 [facility] Serum or plasma albumin isaías urement (mass/volume)Ordered By: Dr. Mary on 05-15-2022 Albumin [Mass/Vol] 3.2 g/dL 3.2-5.0 [facility] Serum or plasma calcium isaías urement (mass/volume)Ordered By: Dr. Mary on 05-15-2022 Calcium [Mass/Vol] 9.1 mg/dL 8.5-10.1 [facility] Serum or plasma creatinine m easurement (mass/volume)Ordered By: Dr. Mary on 05-15-2022 Creatinine [Mass/Vol] 1.91 mg/dL 0.55-1.02 [facility] Comment on above: The validity of the calculated GFR & GFRAA in patients over 70 years has not been determined. Clinical correlation is essential. Serum or plasma urea nitroge n measurement (mass/volume)Ordered By: Dr. Mary on 05-15-2022 Urea nitrogen [Mass/Vol] 31 mg/dL 7-18 [facility] Absolute lymphocyte countOrd ered By: Dr. Mary on 04-25-2022 Lymphocytes Auto (Unsp spec) [#/Vol] 1.58 10*3/uL 0.83-4.51 [facility] Basophil percentageOrdered B y: Dr. Mary on 04-25-2022 Basophil percentage 3.0 mg/dL 2.5-4.9 [facility] Basophils/100 WBC (Bld) 1.0 % 0-1 [facility] Chloride [Moles/Vol] 107 mmol/L 98-107 [facility] Eosinophils/100 WBC (Bld) 2.6 % 0-5 [facility] Glucose [Mass/Vol] 88 mg/dL 74-106 [facility] Neutrophils (Bld) [#/Vol] 4.9 10*3/uL 2.0-7.7 [facility] Neutrophils/100 WBC (Bld) 64.4 % 47-70 [facility] Potassium [Moles/Vol] 3.7 mmol/L 3.5-5.1 [facility] Sodium [Moles/Vol] 138 mmol/L 136-145 [facility] WBC (Bld) [#/Vol] 7.6 10*3/uL 4.4-11.0 [facility] Blood erythrocytes count (nu mber/volume)Ordered By: Dr. Mary on 04-25-2022 RBC (Bld) [#/Vol] 3.18 10*6/uL 4.2-5.4 [facility] Blood hemoglobin measurement (mass/volume)Ordered By: Dr. Mary on 04-25-2022 Hemoglobin (Bld) [Mass/Vol] 10.1 g/dL 12.0-15. 0 [facility] Blood lymphocytes/100 leukoc ytesOrdered By: Dr. Mary on 04-25-2022 Lymphocytes/100 WBC (Bld) 20.7 % 19-41 [facility] Blood monocytes/100 leukocyt esOrdered By: Dr. Mary on 04-25-2022 Monocytes/100 WBC (Bld) 10.9 % 0-10 [facility] Blood platelet mean volumeOr dered By: Dr. Mary on 04-25-2022 Platelet mean volume (Bld) [Entitic vol] 10.1 fL 6.2-12.0 [facility] Determination of erythrocyte mean corpuscular volume (MCV)Ordered By: Dr. Mary on 04-25-2022 MCV (RBC) [Entitic vol] 102.8 fL 81-99 [facility] Hematocrit Auto (Bld) [Volum e fraction]Ordered By: Dr. Mary on 04-25-2022 Hematocrit (Bld) [Volume fraction] 32.7 % 37-47 [facility] Iron measurement (mass/mass) Ordered By: Dr. Mary on 04-25-2022 Iron (Unsp spec) [Mass/Mass] 50 ug/dL 50-170 [facility] Laboratory - Chemistry and C hemistry - challengeOrdered By: Dr. Mary on 04-25-2022 CO2 [Moles/Vol] 24.0 mmol/L 21.0-32.0 [facility] Cobalamin (Vitamin B12) [Mass/Vol] 510 pg/mL 211-911 [facility] Urea nitrogen/Creatinine [Mass ratio] 18.5 mg/mg 10-20 [facility] Laboratory - Hematology and Cell countsOrdered By: Dr. Mary on 04-25-2022 Erythrocyte distribution width (RBC) [Entitic vol] 49.1 fL 35.1-43.9 [facility] Erythrocyte distribution width (RBC) [Ratio] 13.1 % 11.6-14.6 [facility] Immature granulocytes/100 WBC (Bld) 0.400 % 0.0-0.9 [facility] Comment on above: IG% - Immature Granu locytes (promyelocytes, myelocytes and metamyelocytes) > 1% indicates that a LEFT SHIFT is Present. MCH (RBC) [Entitic mass] 31.8 pg 27.0-32.0 [facility] Nucleated RBC/100 WBC (Bld) [Ratio] 0 % 0-5 [facility] MCHC Auto (RBC) [Mass/Vol]Or dered By: Dr. Mary on 04-25-2022 MCHC (RBC) [Mass/Vol] 30.9 g/dL 32-36 [facility] No Panel InformationOrdered By: Dr. Mary on 04-25-2022 Estimated GFR (MDRD) Amer 42 mL/min >60 [facility] Comment on above: GFR Calc Estimated GFR (MDRD) Non-Af Amer 34 mL/min >60 [facility] Comment on above: Non- GFR Calc Platelets bldOrdered By: Dr. Mary on 04-25-2022 Platelets (Bld) [#/Vol] 324 10*3/uL 150-450 [facility] Serum or plasma albumin isaías urement (mass/volume)Ordered By: Dr. Mary on 04-25-2022 Albumin [Mass/Vol] 3.2 g/dL 3.2-5.0 [facility] Serum or plasma calcium isaías urement (mass/volume)Ordered By: Dr. Mary on 04-25-2022 Calcium [Mass/Vol] 8.8 mg/dL 8.5-10.1 [facility] Serum or plasma creatinine m easurement (mass/volume)Ordered By: Dr. Mary on 04-25-2022 Creatinine [Mass/Vol] 1.57 mg/dL 0.55-1.02 [facility] Comment on above: The validity of the calculated GFR & GFRAA in patients over 70 years has not been determined. Clinical correlation is essential. Serum or plasma ferritin davie surement (mass/volume)Ordered By: Dr. Mary on 04-25-2022 Ferritin [Mass/Vol] 89 ng/mL 8-252 [facility] Serum or plasma urea nitroge n measurement (mass/volume)Ordered By: Dr. Mary on 04-25-2022 Urea nitrogen [Mass/Vol] 29 mg/dL 7-18 [facility] Basophil percentageOrdered B y: Dr. Mary on 04-10-2022 Basophil percentage 2.8 mg/dL 2.5-4.9 [facility] Chloride [Moles/Vol] 107 mmol/L 98-107 [facility] Glucose [Mass/Vol] 98 mg/dL 74-106 [facility] Potassium [Moles/Vol] 4.1 mmol/L 3.5-5.1 [facility] Sodium [Moles/Vol] 138 mmol/L 136-145 [facility] Laboratory - Chemistry and C hemistry - challengeOrdered By: Dr. Mary on 04-10-2022 CO2 [Moles/Vol] 24.0 mmol/L 21.0-32.0 [facility] Urea nitrogen/Creatinine [Mass ratio] 22.7 mg/mg 10-20 [facility] No Panel InformationOrdered By: Dr. Mary on 04-10-2022 Estimated GFR (MDRD) Amer 40 mL/min >60 [facility] Comment on above: GFR Calc Estimated GFR (MDRD) Non-Af Amer 33 mL/min >60 [facility] Comment on above: Non- GFR Calc Serum or plasma albumin isaías urement (mass/volume)Ordered By: Dr. Mary on 04-10-2022 Albumin [Mass/Vol] 3.3 g/dL 3.2-5.0 [facility] Serum or plasma calcium isaías urement (mass/volume)Ordered By: Dr. Mary on 04-10-2022 Calcium [Mass/Vol] 9.0 mg/dL 8.5-10.1 [facility] Serum or plasma creatinine m easurement (mass/volume)Ordered By: Dr. Mary on 04-10-2022 Creatinine [Mass/Vol] 1.63 mg/dL 0.55-1.02 [facility] Comment on above: The validity of the calculated GFR & GFRAA in patients over 70 years has not been determined. Clinical correlation is essential. Serum or plasma urea nitroge n measurement (mass/volume)Ordered By: Dr. Mary on 04-10-2022 Urea nitrogen [Mass/Vol] 37 mg/dL 7-18 [facility] Culture, urineOrdered By: Dr Saman Mary on 04-06-2022 Bacteria identified Cx Nom (U) Negative [facility] Bacteria identified Cx Nom (U) Streptococcus group B [facility] Basophil percentageOrdered B y: Dr. Mary on 04-03-2022 Basophil percentage 3.1 mg/dL 2.5-4.9 [facility] Chloride [Moles/Vol] 108 mmol/L 98-107 [facility] Glucose [Mass/Vol] 98 mg/dL 74-106 [facility] Potassium [Moles/Vol] 4.0 mmol/L 3.5-5.1 [facility] Sodium [Moles/Vol] 137 mmol/L 136-145 [facility] Laboratory - Chemistry and C hemistry - challengeOrdered By: Dr. Mary on 04-03-2022 CO2 [Moles/Vol] 21.0 mmol/L 21.0-32.0 [facility] Urea nitrogen/Creatinine [Mass ratio] 22.9 mg/mg 10-20 [facility] No Panel InformationOrdered By: Dr. Mary on 04-03-2022 Estimated GFR (MDRD) Amer 37 mL/min >60 [facility] Comment on above: GFR Calc Estimated GFR (MDRD) Non-Af Amer 30 mL/min >60 [facility] Comment on above: Non- GFR Calc Serum or plasma albumin isaías urement (mass/volume)Ordered By: Dr. Mary on 04-03-2022 Albumin [Mass/Vol] 3.4 g/dL 3.2-5.0 [facility] Serum or plasma calcium isaías urement (mass/volume)Ordered By: Dr. Mary on 04-03-2022 Calcium [Mass/Vol] 9.1 mg/dL 8.5-10.1 [facility] Serum or plasma creatinine m easurement (mass/volume)Ordered By: Dr. Mary on 04-03-2022 Creatinine [Mass/Vol] 1.75 mg/dL 0.55-1.02 [facility] Comment on above: The validity of the calculated GFR & GFRAA in patients over 70 years has not been determined. Clinical correlation is essential. Serum or plasma urea nitroge n measurement (mass/volume)Ordered By: Dr. Mary on 04-03-2022 Urea nitrogen [Mass/Vol] 40 mg/dL 7-18 [facility] CHEST 2 VIEW PA AND LATon CHEST 2 VIEW PA AND LAT Patient Name: IVONNE MAYA STUDY: TH CHEST 2 VIEW PA AND LAT; 03/27/2022 4:41 pm INDICATION: OTHER CHEST PAIN. COMPARISON: None ACCESSION NUMBER(S): [id number] ORDERING CLINICIAN: MALACHI LOWRY FINDINGS: PA and lateral radiographs of the chest are available for interpretation. CARDIOMEDIASTINAL SILHOUETTE: The cardiomediastinal silhouette is within normal limits. Mild aortic knob calcifications. LUNGS: There is no pulmonary edema. No focal consolidation or sizeable pleural effusion is identified. No pneumothorax is seen. ABDOMEN: No remarkable upper abdominal findings. BONES: No acute osseous abnormality. Multilevel degenerative changes within visualized spine. There is mild chronic appearing anterior wedge deformity of a midthoracic vertebral body. Partially visualized posterior lumbar spine fusion hardware. IMPRESSION: 1. No focal consolidation, pleural effusion or pneumothorax. 2. Mild chronic appearing anterior wedge deformity of a midthoracic vertebral body. Correlate with point tenderness and if clinically warranted, a dedicated MRI of thoracic spine can be obtained for further evaluation. Electronically signed by: GAIL PRECIADO MD [facility] Basophil percentageOrdered B y: Dr. Mary on 03-20-2022 Basophil percentage 2.3 mg/dL 2.5-4.9 [facility] Chloride [Moles/Vol] 106 mmol/L 98-107 [facility] Glucose [Mass/Vol] 94 mg/dL 74-106 [facility] Potassium [Moles/Vol] 4.3 mmol/L 3.5-5.1 [facility] Comment on above: Slight Hemolysis, Re sult may be falsely increased. Sodium [Moles/Vol] 135 mmol/L 136-145 [facility] WBC (Bld) [#/Vol] 9.5 10*3/uL 4.4-11.0 [facility] Blood erythrocytes count (nu mber/volume)Ordered By: Dr. Mary on 03-20-2022 RBC (Bld) [#/Vol] 2.69 10*6/uL 4.2-5.4 [facility] Blood hemoglobin measurement (mass/volume)Ordered By: Dr. Mary on 03-20-2022 Hemoglobin (Bld) [Mass/Vol] 8.6 g/dL 12.0-15. 0 [facility] Blood platelet mean volumeOr dered By: Dr. Mary on 03-20-2022 Platelet mean volume (Bld) [Entitic vol] 9.8 fL 6.2-12.0 [facility] Determination of erythrocyte mean corpuscular volume (MCV)Ordered By: Dr. Mary on 03-20-2022 MCV (RBC) [Entitic vol] 100.0 fL 81-99 [facility] Hematocrit Auto (Bld) [Volum e fraction]Ordered By: Dr. Mary on 03-20-2022 Hematocrit (Bld) [Volume fraction] 26.9 % 37-47 [facility] Laboratory - Chemistry and C hemistry - challengeOrdered By: Dr. Mary on 03-20-2022 CO2 [Moles/Vol] 21.0 mmol/L 21.0-32.0 [facility] Urea nitrogen/Creatinine [Mass ratio] 13.0 mg/mg 10-20 [facility] Laboratory - Hematology and Cell countsOrdered By: Dr. Mary on 03-20-2022 Erythrocyte distribution width (RBC) [Entitic vol] 56.1 fL 35.1-43.9 [facility] Erythrocyte distribution width (RBC) [Ratio] 15.2 % 11.6-14.6 [facility] MCH (RBC) [Entitic mass] 32.0 pg 27.0-32.0 [facility] MCHC Auto (RBC) [Mass/Vol]Or dered By: Dr. Mary on 03-20-2022 MCHC (RBC) [Mass/Vol] 32.0 g/dL 32-36 [facility] No Panel InformationOrdered By: Dr. Mary on 03-20-2022 Estimated GFR (MDRD) Amer 33 mL/min >60 [facility] Comment on above: GFR Calc Estimated GFR (MDRD) Non-Af Amer 27 mL/min >60 [facility] Comment on above: Non- GFR Calc Platelets bldOrdered By: Dr. Mary on 03-20-2022 Platelets (Bld) [#/Vol] 362 10*3/uL 150-450 [facility] Serum or plasma albumin isaías urement (mass/volume)Ordered By: Dr. Mary on 03-20-2022 Albumin [Mass/Vol] 3.3 g/dL 3.2-5.0 [facility] Serum or plasma calcium isaías urement (mass/volume)Ordered By: Dr. Mary on 03-20-2022 Calcium [Mass/Vol] 8.4 mg/dL 8.5-10.1 [facility] Serum or plasma creatinine m easurement (mass/volume)Ordered By: Dr. Mary on 03-20-2022 Creatinine [Mass/Vol] 1.92 mg/dL 0.55-1.02 [facility] Comment on above: The validity of the calculated GFR & GFRAA in patients over 70 years has not been determined. Clinical correlation is essential. Serum or plasma urea nitroge n measurement (mass/volume)Ordered By: Dr. Mary on 03-20-2022 Urea nitrogen [Mass/Vol] 25 mg/dL 7-18 [facility] Culture, urineOrdered By: Dr Saman Mary on 03-10-2022 Bacteria identified Cx Nom (U) Positive [facility] Basophil percentageOrdered B y: Dr. Mary on 03-08-2022 Basophil percentage 0-5 SEEN /hpf 0-5 [facility] Bilirubin Test strip Ql (U)O rdered By: Dr. Mary on 03-08-2022 Bilirubin Ql (U) Negative Negative [facility] Ketones Test strip Ql (U)Ord ered By: Dr. Mary on 03-08-2022 Ketones Ql (U) Negative Negative [facility] Mucus LM Ql (Urine sed)Order ed By: Dr. Mary on 03-08-2022 Mucus Ql (Urine sed) 0 SEEN /hpf [facility] Nitrite Test strip Ql (U)Ord ered By: Dr. Mary on 03-08-2022 Nitrite Ql (U) Negative Negative [facility] Protein Test strip Ql (U)Ord ered By: Dr. Mary on 03-08-2022 Protein Ql (U) 30 mg/dl Negative [facility] Squamous epithelial cells de tection in urine sediment by light microscopyOrdered By: Dr. Mary on 03-08-2022 Epithelial cells.squamous LM Ql (Urine sed) 0 SEEN /hpf 5-10 [facility] Urine blood detectionOrdered By: Dr. Mary on 03-08-2022 RBC Ql (U) 10 /ul Negative [facility] RBC Ql (U) 0-5 SEEN /hpf 0-5 [facility] Urine clarityOrdered By: Dr. Mary on 03-08-2022 Clarity (U) Clear Clear [facility] Urine color determinationOrd ered By: Dr. Mary on 03-08-2022 Color (U) Yellow Yellow [facility] Urine glucose detectionOrder ed By: Dr. Mary on 03-08-2022 Glucose Ql (U) 100 mg/dl Normal [facility] Urine leukocyte esterase det ection by dipstickOrdered By: Dr. Mary on 03-08-2022 Leukocyte esterase Test strip Ql (U) Negative Negative [facility] Urine pHOrdered By: Dr. Mary on 03-08-2022 pH (U) 6.0 [pH] 5.0 - 8.0 [facility] Urine sediment bacteria coun t by microscopy (number/high power field)Ordered By: Dr. Mary on 03-08-2022 Bacteria LM.HPF (Urine sed) [#/Area] 1 /[HPF] None Seen [facility] Urine specific gravity measu rementOrdered By: Dr. Mary on 03-08-2022 Specific gravity (U) [Rel density] 1.010 1.002-1.03 0 [facility] Urobilinogen Auto test strip Ql (U)Ordered By: Dr. Mary on 03-08-2022 Urobilinogen Ql (U) Normal mg/dl Normal [facility] Basophil percentageOrdered B y: Dr. Mary on 02-28-2022 Basophil percentage 2.3 mg/dL 2.5-4.9 [facility] Chloride [Moles/Vol] 110 mmol/L 98-107 [facility] Glucose [Mass/Vol] 112 mg/dL 74-106 [facility] Comment on above: Fasting Glucose resu lt from 100 to 125 mg/dL suggests IMPAIRED HOMEOSTASIS per A.D.A. criteria. Potassium [Moles/Vol] 3.6 mmol/L 3.5-5.1 [facility] Sodium [Moles/Vol] 141 mmol/L 136-145 [facility] Laboratory - Chemistry and C hemistry - challengeOrdered By: Dr. Mary on 02-28-2022 CO2 [Moles/Vol] 21.0 mmol/L 21.0-32.0 [facility] Urea nitrogen/Creatinine [Mass ratio] 11.5 mg/mg 10-20 [facility] No Panel InformationOrdered By: Dr. Mary on 02-28-2022 Estimated GFR (MDRD) Amer 29 mL/min >60 [facility] Comment on above: GFR Calc Estimated GFR (MDRD) Non-Af Amer 24 mL/min >60 [facility] Comment on above: Non- GFR Calc Serum or plasma albumin isaías urement (mass/volume)Ordered By: Dr. Mary on 02-28-2022 Albumin [Mass/Vol] 3.4 g/dL 3.2-5.0 [facility] Serum or plasma calcium isaías urement (mass/volume)Ordered By: Dr. Mary on 02-28-2022 Calcium [Mass/Vol] 8.6 mg/dL 8.5-10.1 [facility] Serum or plasma creatinine m easurement (mass/volume)Ordered By: Dr. Mary on 02-28-2022 Creatinine [Mass/Vol] 2.18 mg/dL 0.55-1.02 [facility] Comment on above: The validity of the calculated GFR & GFRAA in patients over 70 years has not been determined. Clinical correlation is essential. Serum or plasma urea nitroge n measurement (mass/volume)Ordered By: Dr. Mary on 02-28-2022 Urea nitrogen [Mass/Vol] 25 mg/dL 7-18 [facility] Basophil percentageon 2021 Basophil percentage 2.5 mg/dL 2.5-4.9 [facility] Work Phone: Chloride [Moles/Vol] 109 mmol/L 98-107 [facility] Work Phone: Glucose [Mass/Vol] 88 mg/dL 74-106 [facility] Work Phone: Potassium [Moles/Vol] 2.9 mmol/L 3.5-5.1 [facility] Work Phone: Sodium [Moles/Vol] 138 mmol/L 136-145 [facility] Work Phone: Basophil percentageOrdered B y: Dr. Mary on 02-20-2022 WBC (Bld) [#/Vol] 16.5 10*3/uL 4.4-11.0 [facility] Blood erythrocytes count (nu mber/volume)Ordered By: Dr. Mary on 02-20-2022 RBC (Bld) [#/Vol] 2.64 10*6/uL 4.2-5.4 [facility] Blood hemoglobin measurement (mass/volume)Ordered By: Dr. Mary on 02-20-2022 Hemoglobin (Bld) [Mass/Vol] 8.1 g/dL 12.0-15. 0 [facility] Blood platelet mean volumeOr dered By: Dr. Mary on 02-20-2022 Platelet mean volume (Bld) [Entitic vol] 10.7 fL 6.2-12.0 [facility] Determination of erythrocyte mean corpuscular volume (MCV)Ordered By: Dr. Mary on 02-20-2022 MCV (RBC) [Entitic vol] 97.0 fL 81-99 [facility] Hematocrit Auto (Bld) [Volum e fraction]Ordered By: Dr. Mary on 02-20-2022 Hematocrit (Bld) [Volume fraction] 25.6 % 37-47 [facility] Iron measurement (mass/mass) Ordered By: Dr. Mary on 02-20-2022 Iron (Unsp spec) [Mass/Mass] 89 ug/dL 50-170 [facility] Laboratory - Chemistry and C hemistry - challengeon 02-20-2022 CO2 [Moles/Vol] 15.0 mmol/L 21.0-32.0 [facility] Work Phone: Urea nitrogen/Creatinine [Mass ratio] 13.1 mg/mg 10-20 [facility] Work Phone: Laboratory - Hematology and Cell countsOrdered By: Dr. Mary on 02-20-2022 Erythrocyte distribution width (RBC) [Entitic vol] 54.2 fL 35.1-43.9 [facility] Erythrocyte distribution width (RBC) [Ratio] 15.3 % 11.6-14.6 [facility] MCH (RBC) [Entitic mass] 30.7 pg 27.0-32.0 [facility] MCHC Auto (RBC) [Mass/Vol]Or dered By: Dr. Mary on 02-20-2022 MCHC (RBC) [Mass/Vol] 31.6 g/dL 32-36 [facility] No Panel Informationon 02-20 Estimated GFR (MDRD) Amer 18 mL/min >60 [facility] Work Phone: Comment on above: GFR Calc Estimated GFR (MDRD) Non-Af Amer 15 mL/min >60 [facility] Work Phone: Comment on above: Non- GFR Calc No Panel InformationOrdered By: Dr. Mary on 02-20-2022 Total Iron Binding Capacity 221 ug/dL 250-450 [facility] Platelets bldOrdered By: Dr. Mary on 02-20-2022 Platelets (Bld) [#/Vol] 307 10*3/uL 150-450 [facility] Serum or plasma albumin isaías urement (mass/volume)on 02-20-2022 Albumin [Mass/Vol] 3.2 g/dL 3.2-5.0 [facility] Work Phone: Serum or plasma calcium isaías urement (mass/volume)on 02-20-2022 Calcium [Mass/Vol] 8.0 mg/dL 8.5-10.1 [facility] Work Phone: Serum or plasma creatinine m easurement (mass/volume)on 02-20-2022 Creatinine [Mass/Vol] 3.21 mg/dL 0.55-1.02 [facility] Work Phone: Comment on above: The validity of the calculated GFR & GFRAA in patients over 70 years has not been determined. Clinical correlation is essential. Serum or plasma ferritin davie surement (mass/volume)Ordered By: Dr. Mary on 02-20-2022 Ferritin [Mass/Vol] 408 ng/mL 8-252 [facility] Serum or plasma iron saturat ion measurement (mass fraction)Ordered By: Dr. Mary on 02-20-2022 Iron saturation [Mass fraction] 40.3 % 15.0-55.0 [facility] Serum or plasma urea nitroge n measurement (mass/volume)on 02-20-2022 Urea nitrogen [Mass/Vol] 42 mg/dL 7-18 [facility] Work Phone: Respiratory pathogens DNA an d RNA 12b panel MONA+probe (Unsp spec)Ordered By: Dr. Lowry on 02-16-2022 Respiratory Panel (PCR) Influenzae A [facility] Atypical perinuclear antineu trophil cytoplasmic antibodies measurementOrdered By: Dr. Mary on 02-13-2022 Neutrophil cytoplasmic Ab.perinuclear.atypical IF (S) [Titer] 1:160 titer Neg:<1:20 [facility] Comment on above: The atypical pANCA p attern has been observed in asignificant percentage of patients with ulcerative colitis,primary sclerosing cholangitis and autoimmune hepatitis.Performed at: [facility] [employer] [place] [id number] Director: Hunter Gandhi PhD, Phone: [phone] No Panel InformationOrdered By: Dr. Mary on 02-13-2022 Miscellaneous Test See comment [facility] Comment on above: TEST RESULT LIMITSRe nal Panel (10)Glucose 98 mg/dL 70-99BUN 53 High mg/dL 8-27Creatinine 3.52 High mg/dL 0.57-1.00eGFR 13 Low mL/min/1.73 >59BUN/Creatinine Ratio 15 12-28Sodium 142 mmol/L 134-144Potassium 3.8 mmol/L 3.5-5.2Chloride 109 High mmol/L 96-106Carbon Dioxide, Total 14 Low mmol/L 20-29 Verified by repeat analysisCalcium 8.1 Low mg/dL 8.7-10.3Phosphorus 3.0 mg/dL 3.0-4.3Albumin 3.8 g/dL 3.7-4.7 TESTING PERFORMED AT [facility]. ORIGINAL REPORT ON FILE IN LAB CONTAINS ADDITIONAL TEST SITE INFORMATION. Serum classic neutrophil cyt oplasmic antibody assay (units/volume)Ordered By: Dr. Mary on 02-13-2022 Neutrophil cytoplasmic Ab.classic Qn (S) <1:20 titer Neg:<1:20 [facility] Serum perinuclear neutrophil cytoplasmic antibody titer by immunofluorescenceOrdered By: Dr. Mary on 02-13-2022 Neutrophil cytoplasmic Ab.perinuclear IF (S) [Titer] <1:20 titer Neg:<1:20 [facility] Comment on above: The presence of posi tive fluorescence exhibiting P-ANCA orC-ANCA patterns alone is not specific for the diagnosis ofWegener's Granulomatosis (WG) or microscopic polyangiitis.Decisions about treatment should not be based solely onANCA IFA results. The [employer] Consensusrecommends follow up testing of positive sera with both KS-3 and MPO-ANCA enzyme immunoassays. As many as 5% serumsamples are positive only by EIA. Ref. AM J Clin [id number];111:507-513. Basophil percentageOrdered B y: Dr. Mary on 02-09-2022 Basophil percentage 3.6 mg/dL 2.5-4.9 [facility] Chloride [Moles/Vol] 113 mmol/L 98-107 [facility] Glucose [Mass/Vol] 160 mg/dL 74-106 [facility] Comment on above: Fasting Glucose resu lt greater than or equal to 126 mg/dL suggests DIABETES MELLITUS per A.D.A. criteria. Potassium [Moles/Vol] 3.1 mmol/L 3.5-5.1 [facility] Sodium [Moles/Vol] 140 mmol/L 136-145 [facility] WBC (Bld) [#/Vol] 10.8 10*3/uL 4.4-11.0 [facility] Blood erythrocytes count (nu mber/volume)Ordered By: Dr. Mary on 02-09-2022 RBC (Bld) [#/Vol] 2.91 10*6/uL 4.2-5.4 [facility] Blood hemoglobin measurement (mass/volume)Ordered By: Dr. Mary on 02-09-2022 Hemoglobin (Bld) [Mass/Vol] 9.3 g/dL 12.0-15. 0 [facility] Blood platelet mean volumeOr dered By: Dr. Mary on 02-09-2022 Platelet mean volume (Bld) [Entitic vol] 9.5 fL 6.2-12.0 [facility] Determination of erythrocyte mean corpuscular volume (MCV)Ordered By: Dr. Mary on 02-09-2022 MCV (RBC) [Entitic vol] 91.1 fL 81-99 [facility] Hematocrit Auto (Bld) [Volum e fraction]Ordered By: Dr. Mary on 02-09-2022 Hematocrit (Bld) [Volume fraction] 26.5 % 37-47 [facility] Laboratory - Chemistry and C hemistry - challengeOrdered By: Dr. Mary on 02-09-2022 CO2 [Moles/Vol] 16.0 mmol/L 21.0-32.0 [facility] Urea nitrogen/Creatinine [Mass ratio] 12.2 mg/mg 10-20 [facility] Laboratory - Hematology and Cell countsOrdered By: Dr. Mary on 02-09-2022 Erythrocyte distribution width (RBC) [Entitic vol] 48.4 fL 35.1-43.9 [facility] Erythrocyte distribution width (RBC) [Ratio] 14.6 % 11.6-14.6 [facility] MCH (RBC) [Entitic mass] 32.0 pg 27.0-32.0 [facility] MCHC Auto (RBC) [Mass/Vol]Or dered By: Dr. Mary on 02-09-2022 MCHC (RBC) [Mass/Vol] 35.1 g/dL 32-36 [facility] No Panel InformationOrdered By: Dr. Mary on 02-09-2022 Estimated GFR (MDRD) Amer 12 mL/min >60 [facility] Comment on above: GFR Calc Estimated GFR (MDRD) Non-Af Amer 10 mL/min >60 [facility] Comment on above: Non- GFR Calc Platelets bldOrdered By: Dr. Mary on 02-09-2022 Platelets (Bld) [#/Vol] 452 10*3/uL 150-450 [facility] Serum or plasma albumin isaías urement (mass/volume)Ordered By: Dr. Mary on 02-09-2022 Albumin [Mass/Vol] 3.2 g/dL 3.2-5.0 [facility] Serum or plasma calcium isaías urement (mass/volume)Ordered By: Dr. Mary on 02-09-2022 Calcium [Mass/Vol] 8.9 mg/dL 8.5-10.1 [facility] Serum or plasma creatinine m easurement (mass/volume)Ordered By: Dr. Mary on 02-09-2022 Creatinine [Mass/Vol] 4.59 mg/dL 0.55-1.02 [facility] Comment on above: The validity of the calculated GFR & GFRAA in patients over 70 years has not been determined. Clinical correlation is essential. Serum or plasma urea nitroge n measurement (mass/volume)Ordered By: Dr. Mary on 02-09-2022 Urea nitrogen [Mass/Vol] 56 mg/dL 7-18 [facility] Basophil percentageOrdered B y: Dr. Mary on 02-03-2022 Basophil percentage 3.3 mg/dL 2.5-4.9 [facility] Chloride [Moles/Vol] 112 mmol/L 98-107 [facility] Glucose [Mass/Vol] 106 mg/dL 74-106 [facility] Comment on above: Fasting Glucose resu lt from 100 to 125 mg/dL suggests IMPAIRED HOMEOSTASIS per A.D.A. criteria. Potassium [Moles/Vol] 2.8 mmol/L 3.5-5.1 [facility] Sodium [Moles/Vol] 140 mmol/L 136-145 [facility] WBC (Bld) [#/Vol] 8.2 10*3/uL 4.4-11.0 [facility] Blood erythrocytes count (nu mber/volume)Ordered By: Dr. Mary on 02-03-2022 RBC (Bld) [#/Vol] 2.90 10*6/uL 4.2-5.4 [facility] Blood hemoglobin measurement (mass/volume)Ordered By: Dr. Mary on 02-03-2022 Hemoglobin (Bld) [Mass/Vol] 8.9 g/dL 12.0-15. 0 [facility] Blood platelet mean volumeOr dered By: Dr. Mary on 02-03-2022 Platelet mean volume (Bld) [Entitic vol] 8.8 fL 6.2-12.0 [facility] Determination of erythrocyte mean corpuscular volume (MCV)Ordered By: Dr. Mary on 02-03-2022 MCV (RBC) [Entitic vol] 90.7 fL 81-99 [facility] Hematocrit Auto (Bld) [Volum e fraction]Ordered By: Dr. Mary on 02-03-2022 Hematocrit (Bld) [Volume fraction] 26.3 % 37-47 [facility] INR in Blood by Coagulation assayOrdered By: Dr. Mary on 02-03-2022 INR Coag (Bld) [Relative time] 1.1 {INR} [facility] Laboratory - Chemistry and C hemistry - challengeOrdered By: Dr. Mary on 02-03-2022 CO2 [Moles/Vol] 20.0 mmol/L 21.0-32.0 [facility] Urea nitrogen/Creatinine [Mass ratio] 9.6 mg/mg 10-20 [facility] Laboratory - CoagulationOrde red By: Dr. Mary on 02-03-2022 aPTT Coag (Bld) [Time] 30.0 s 24.1-36.2 [facility] PT Coag (PPP) [Time] 14.2 s 11.7-14.9 [facility] Laboratory - Hematology and Cell countsOrdered By: Dr. Mary on 02-03-2022 Erythrocyte distribution width (RBC) [Entitic vol] 47.3 fL 35.1-43.9 [facility] Erythrocyte distribution width (RBC) [Ratio] 14.3 % 11.6-14.6 [facility] MCH (RBC) [Entitic mass] 30.7 pg 27.0-32.0 [facility] MCHC Auto (RBC) [Mass/Vol]Or dered By: Dr. Mary on 02-03-2022 MCHC (RBC) [Mass/Vol] 33.8 g/dL 32-36 [facility] No Panel InformationOrdered By: Dr. Mary on 02-03-2022 Anti-Nuclear Antibody Screen Negative Negative [facility] Comment on above: Performed at: [address], [place], [place] [id number] Director: Hunter Gandhi PhD, Phone: [phone] Estimated GFR (MDRD) Amer 13 mL/min >60 [facility] Comment on above: GFR Calc Estimated GFR (MDRD) Non-Af Amer 11 mL/min >60 [facility] Comment on above: Non- GFR Calc Platelets bldOrdered By: Dr. Mary on 02-03-2022 Platelets (Bld) [#/Vol] 371 10*3/uL 150-450 [facility] Serum or plasma albumin isaías urement (mass/volume)Ordered By: Dr. Mary on 02-03-2022 Albumin [Mass/Vol] 3.1 g/dL 3.2-5.0 [facility] Serum or plasma calcium isaías urement (mass/volume)Ordered By: Dr. Mary on 02-03-2022 Calcium [Mass/Vol] 8.6 mg/dL 8.5-10.1 [facility] Serum or plasma creatinine m easurement (mass/volume)Ordered By: Dr. Mary on 02-03-2022 Creatinine [Mass/Vol] 4.38 mg/dL 0.55-1.02 [facility] Comment on above: The validity of the calculated GFR & GFRAA in patients over 70 years has not been determined. Clinical correlation is essential. Serum or plasma urea nitroge n measurement (mass/volume)Ordered By: Dr. Mary on 02-03-2022 Urea nitrogen [Mass/Vol] 42 mg/dL 7-18 [facility] Basophil percentageOrdered B y: Dr. Mary on 01-31-2022 Basophil percentage 3.3 mg/dL 2.5-4.9 [facility] Chloride [Moles/Vol] 110 mmol/L 98-107 [facility] Glucose [Mass/Vol] 76 mg/dL 74-106 [facility] Potassium [Moles/Vol] 2.9 mmol/L 3.5-5.1 [facility] Sodium [Moles/Vol] 141 mmol/L 136-145 [facility] Laboratory - Chemistry and C hemistry - challengeOrdered By: Dr. Mary on 01-31-2022 CO2 [Moles/Vol] 20.0 mmol/L 21.0-32.0 [facility] Urea nitrogen/Creatinine [Mass ratio] 10.1 mg/mg 10-20 [facility] No Panel InformationOrdered By: Dr. Mary on 01-31-2022 Estimated GFR (MDRD) Amer 13 mL/min >60 [facility] Comment on above: GFR Calc Estimated GFR (MDRD) Non-Af Amer 11 mL/min >60 [facility] Comment on above: Non- GFR Calc Serum or plasma albumin isaías urement (mass/volume)Ordered By: Dr. Mary on 01-31-2022 Albumin [Mass/Vol] 3.1 g/dL 3.2-5.0 [facility] Serum or plasma calcium isaías urement (mass/volume)Ordered By: Dr. Mary on 01-31-2022 Calcium [Mass/Vol] 8.6 mg/dL 8.5-10.1 [facility] Serum or plasma creatinine m easurement (mass/volume)Ordered By: Dr. Mary on 01-31-2022 Creatinine [Mass/Vol] 4.24 mg/dL 0.55-1.02 [facility] Comment on above: The validity of the calculated GFR & GFRAA in patients over 70 years has not been determined. Clinical correlation is essential. Serum or plasma urea nitroge n measurement (mass/volume)Ordered By: Dr. Mary on 01-31-2022 Urea nitrogen [Mass/Vol] 43 mg/dL 7-18 [facility] Urine creatinine measurement (mass/volume)Ordered By: Dr. Mary on 01-31-2022 Creatinine (U) [Mass/Vol] 54.70 mg/dL NO RANGE EST. [facility] Urine protein measurement (m ass/volume)Ordered By: Dr. Mary on 01-31-2022 Protein (U) [Mass/Vol] 103.7 mg/dL 0.0-11.8 [facility] Urine protein/creatinine mas s ratioOrdered By: Dr. Mary on 01-31-2022 Protein/Creatinine (U) [Mass ratio] 1896 mg/g CRE 0-200 [facility] Basophil percentageOrdered B y: Dr. Mccrary on 01-23-2022 Chloride [Moles/Vol] 113 mmol/L 98-107 [facility] Glucose [Mass/Vol] 110 mg/dL 74-106 [facility] Comment on above: Fasting Glucose resu lt from 100 to 125 mg/dL suggests IMPAIRED HOMEOSTASIS per A.D.A. criteria. Potassium [Moles/Vol] 3.6 mmol/L 3.5-5.1 [facility] Sodium [Moles/Vol] 140 mmol/L 136-145 [facility] Laboratory - Chemistry and C hemistry - challengeOrdered By: Dr. Mccrary on 01-23-2022 CO2 [Moles/Vol] 20.0 mmol/L 21.0-32.0 [facility] Urea nitrogen/Creatinine [Mass ratio] 13.7 mg/mg 10- [facility] No Panel InformationOrdered By: Dr. Mccrary on 01-23-2022 Estimated GFR (MDRD) Amer 18 mL/min >60 [facility] Comment on above: GFR Calc Estimated GFR (MDRD) Non-Af Amer 15 mL/min >60 [facility] Comment on above: Non- GFR Calc Serum or plasma calcium isaías urement (mass/volume)Ordered By: Dr. Mccrary on 01-23-2022 Calcium [Mass/Vol] 8.6 mg/dL 8.5-10.1 [facility] Serum or plasma creatinine m easurement (mass/volume)Ordered By: Dr. Mccrary on 01-23-2022 Creatinine [Mass/Vol] 3.28 mg/dL 0.55-1.02 [facility] Comment on above: The validity of the calculated GFR & GFRAA in patients over 70 years has not been determined. Clinical correlation is essential. Serum or plasma urea nitroge n measurement (mass/volume)Ordered By: Dr. Mccrary on 01-23-2022 Urea nitrogen [Mass/Vol] 45 mg/dL 7- [facility] Thin prep Papanicolaou smear with manual screeningOrdered By: Dr. Mccrary on 01-23-2022 Thin prep Papanicolaou smear with manual screening 7 - [facility] Absolute lymphocyte countOrd ered By: Dr. Mccrary on 01-18-2022 Lymphocytes Auto (Unsp spec) [#/Vol] 1.56 10*3/uL 0.83-4.51 [facility] Basophil percentageOrdered B y: Dr. Mccrary on 01-18-2022 Basophils/100 WBC (Bld) 1.3 % 0-1 [facility] Bilirubin [Mass/Vol] 0.40 mg/dL 0.20-1.00 [facility] Comment on above: For patients on eltr ombopag therapy, use of Dimension [place] TBIL is not recommended. Chloride [Moles/Vol] 107 mmol/L 98-107 [facility] Cholesterol [Mass/Vol] 152 mg/dL <200 [facility] Comment on above: <200 mg/dL Desirable 200-240 mg/dL Borderline >240 mg/dL High Risk Eosinophils/100 WBC (Bld) 4.1 % 0-5 [facility] Glucose [Mass/Vol] 84 mg/dL 74-106 [facility] Neutrophils (Bld) [#/Vol] 7.0 10*3/uL 2.0-7.7 [facility] Neutrophils/100 WBC (Bld) 69.8 % 47-70 [facility] Potassium [Moles/Vol] 2.9 mmol/L 3.5-5.1 [facility] Protein [Mass/Vol] 7.5 g/dL 6.4-8.2 [facility] Sodium [Moles/Vol] 142 mmol/L 136-145 [facility] Triglyceride [Mass/Vol] 73 mg/dL <199 [facility] Comment on above: The drugs N-Acetylcy steine and Metamizole may falsely depress this assay.Serum Triglycerides Reference Interval Normal <150 mg/dL Borderline high 150 - 199 mg/dL High 200 - 499 mg/dL Very High > or = 500 mg/dL WBC (Bld) [#/Vol] 10.0 10*3/uL 4.4-11.0 [facility] Blood erythrocytes count (nu mber/volume)Ordered By: Dr. Mccrary on 01-18-2022 RBC (Bld) [#/Vol] 3.12 10*6/uL 4.2-5.4 [facility] Blood hemoglobin measurement (mass/volume)Ordered By: Dr. Mccrary on 01-18-2022 Hemoglobin (Bld) [Mass/Vol] 9.7 g/dL 12.0-15. 0 [facility] Blood lymphocytes/100 leukoc ytesOrdered By: Dr. Mccrary on 01-18-2022 Lymphocytes/100 WBC (Bld) 15.6 % 19-41 [facility] Blood monocytes/100 leukocyt esOrdered By: Dr. Mccrary on 01-18-2022 Monocytes/100 WBC (Bld) 8.8 % 0-10 [facility] Blood platelet mean volumeOr dered By: Dr. Mccrary on 01-18-2022 Platelet mean volume (Bld) [Entitic vol] 10.3 fL 6.2-12.0 [facility] Determination of erythrocyte mean corpuscular volume (MCV)Ordered By: Dr. Mccrary on 01-18-2022 MCV (RBC) [Entitic vol] 92.9 fL 81-99 [facility] Direct bilirubinOrdered By: Dr. Mccrary on 01-18-2022 Bilirubin.direct [Mass/Vol] 0.13 mg/dL 0.00-0.3 0 [facility] Hematocrit Auto (Bld) [Volum e fraction]Ordered By: Dr. Mccrary on 01-18-2022 Hematocrit (Bld) [Volume fraction] 29.0 % 37-47 [facility] Laboratory - Chemistry and C hemistry - challengeOrdered By: Dr. Mccrary on 01-18-2022 ALP [Catalytic activity/Vol] 63 U/L 45-117 [facility] ALT [Catalytic activity/Vol] 17 U/L 13-56 [facility] CO2 [Moles/Vol] 25.0 mmol/L 21.0-32.0 [facility] Globulin (S) [Mass/Vol] 4.5 g/dL 2.2-4.2 [facility] Urea nitrogen/Creatinine [Mass ratio] 16.3 mg/mg 10-20 [facility] Laboratory - Hematology and Cell countsOrdered By: Dr. Mccrary on 01-18-2022 Erythrocyte distribution width (RBC) [Entitic vol] 43.0 fL 35.1-43.9 [facility] Erythrocyte distribution width (RBC) [Ratio] 12.9 % 11.6-14.6 [facility] Immature granulocytes/100 WBC (Bld) 0.400 % 0.0-0.9 [facility] Comment on above: IG% - Immature Granu locytes (promyelocytes, myelocytes and metamyelocytes) > 1% indicates that a LEFT SHIFT is Present. MCH (RBC) [Entitic mass] 31.1 pg 27.0-32.0 [facility] Nucleated RBC/100 WBC (Bld) [Ratio] 0 % 0-5 [facility] MCHC Auto (RBC) [Mass/Vol]Or dered By: Dr. Mccrary on 01-18-2022 MCHC (RBC) [Mass/Vol] 33.4 g/dL 32-36 [facility] No Panel InformationOrdered By: Dr. Mccrary on 01-18-2022 Estimated GFR (MDRD) Amer 21 mL/min >60 [facility] Comment on above: GFR Calc Estimated GFR (MDRD) Non-Af Amer 17 mL/min >60 [facility] Comment on above: Non- GFR Calc Thyroid Stimulating Hormone (TSH) 1.73 uIU/mL 0.358-3.74 [facility] Platelets bldOrdered By: Dr. Mccrary on 01-18-2022 Platelets (Bld) [#/Vol] 323 10*3/uL 150-450 [facility] Serum or plasma albumin isaías urement (mass/volume)Ordered By: Dr. Mccrary on 01-18-2022 Albumin [Mass/Vol] 3.0 g/dL 3.2-5.0 [facility] Serum or plasma calcium isaías urement (mass/volume)Ordered By: Dr. Mccrary on 01-18-2022 Calcium [Mass/Vol] 8.9 mg/dL 8.5-10.1 [facility] Serum or plasma cholesterol in HDL measurement (mass/volume)Ordered By: Dr. Mccrary on 01-18-2022 Cholesterol in HDL [Mass/Vol] 52 mg/dL >40 [facility] Comment on above: The drugs N-Acetylcy steine and Metamizole may falsely depress this assay. Reference Range HDL <40 mg/dL Low HDL Cholesterol HDL >or= 60 mg/dL High HDL Cholesterol Serum or plasma cholesterol in VLDL measurement (mass/volume)Ordered By: Dr. Mccrary on 11-16-2022 Cholesterol in VLDL [Mass/Vol] 15 mg/dL 5-40 [facility] Serum or plasma creatinine m easurement (mass/volume)Ordered By: Dr. Mccrary on 01-18-2022 Creatinine [Mass/Vol] 2.89 mg/dL 0.55-1.02 [facility] Comment on above: The validity of the calculated GFR & GFRAA in patients over 70 years has not been determined. Clinical correlation is essential. Serum or plasma low density lipoprotein (LDL) cholesterol measurement (mass/volume)Ordered By: Dr. Mccrary on 01-18-2022 Cholesterol in LDL [Mass/Vol] 85 mg/dL 0-130 [facility] Serum or plasma urea nitroge n measurement (mass/volume)Ordered By: Dr. Mccrary on 01-18-2022 Urea nitrogen [Mass/Vol] 47 mg/dL 7-18 [facility] Thin prep Papanicolaou smear with manual screeningOrdered By: Dr. Mccrary on 01-18-2022 Thin prep Papanicolaou smear with manual screening 11 U/L 15-37 [facility] Thin prep Papanicolaou smear with manual screening 10 5-15 [facility] PT Progress Noteon 2 PT Progress Note Therapy Diagnosis Assessed Spinal stenosis, lumbar (724.02) (M48.061) Plan Goals: Goals set and discussed today. 1. Independent HEP to allow for 50% reduction in max ADL C/C sx ( 10) 2-3wks 510 amax sx within the last 5 days; 10/13/21; NOT MET 2. Survey score improvement from 20% to 10% (LAI) 2-3wks 14% as of 10/13/21; PARTIALLY MET 3. ROM increase to allow for improved ADL car transfers, dressing lowers (from from 60% to 75% trunk flex) 3-4wks 4. Strength increase to allow for improved ADL walking (from gr4- to gr4+ abdominals) 3-4wks notes ADL walking improvements; gr4 abdominals; 10/13/21; PARTIALLY MET 5. Strength increase to allow for improved ADL stairs (from gr4 to gr4+ LLE myotome) 3-4wks gr4+ LLE myotome; stairs NT; 10/13/21; PARTIALLY MET Planned interventions include: aquatic therapy, cryotherapy, dry needling, education/instruction , electrical stimulation, gait training, home program, hot pack, manual therapy, self care/home management, therapeutic exercises and IASTM/cupping. Potential to achieve rehab goals is good Progress with POC, as tolerated. Discharge patient: the patient agrees to D/C to ongoing HEP with progress achieved; the patient may consider needling for sx management if in the future if sx return. Assessment Patient identity confirmed today with name/. the patient seems to be walking more upright today; see goals; good ADL and strength gains; added to HEP and given handout. Response to treatment: decreased pain, improved flexibility, improved posture and improved knowledge and understanding of condition. Patient was able to complete today's treatment with some difficulty. Adult Risk Screening There are no spiritual/cultural practices/values/need s that are important to know Initial Fall Risk Screening: IVONNE has not fallen in the last 6 months. IVONNE does not have a fear of falling. She does not need assistance with sitting, standing or walking. Does not need assistance walking in her home. She does not need assistance in an unfamiliar setting. The patient is not using an assistive device. Please identify location of pain: RLB and R butt. Insurance Insurance reviewed Visit number: 5 [facility] 35$ copay Evaluating therapist Maximiliano Garland PT. M48.061 Subjective Patient reports:. 1/10 soreness right now. I am trying to walk more upright. I think this is helping-I am not having the spasms anymore. I think I just need to do the HEP consistently-I did not do this last time. Precautions: Fall Risk: none Pertinent medical HX includes: osteopenia. Treatment Time in clinic started at 11:22 am Time in clinic ended at 11:52 am Total time in clinic is 30 minutes. Therapeutic exercise (62949): timed minutes 10, units 1 . reviewed HEP may 2x10 ea N NOT TODAY golf swing [facility] review X wall lean with mini squat x10 X hooklying clamshell 2x10 faith SLR B 2x10 [P - reps] bridges 2x10 hip ext stretch 45 ea pirif stretch x45 B LTR x10 hooklying hip add (ball squeeze), 2x10 hooklying alt marches with TrA: x20 ea hip ext OET 2x10 ea seated Hadd 2x10 ea green [P - resistance] core stability and trunk [facility] trng.-A . Manual Therapy (37679):. DN-50mm B lumb paraspinals-10' unbilled-A STW-A. Provided today:. HEP handout. 'Scores and Scales' Signatures Electronically signed by : Forest Garland PT; Oct 13 2021 11:53AM EST (Author) Normal Touchworks Therapy Re-eval Noteon 10-13 Therapy Re-eval Note Therapy Diagnosis Assessed 1. Spinal stenosis, lumbar (724.02) (M48.061) Plan Goals: Goals set and discussed today. 1. Independent HEP to allow for 50% reduction in max ADL C/C sx ( 07/12) 2-3wks 510 amax sx within the last 5 days; 10/13/21; NOT MET 2. Survey score improvement from 20% to 10% (LAI) 2-3wks 14% as of 10/13/21; PARTIALLY MET 3. ROM increase to allow for improved ADL car transfers, dressing lowers (from from 60% to 75% trunk flex) 3-4wks 4. Strength increase to allow for improved ADL walking (from gr4- to gr4+ abdominals) 3-4wks notes ADL walking improvements; gr4 abdominals; 10/13/21; PARTIALLY MET 5. Strength increase to allow for improved ADL stairs (from gr4 to gr4+ LLE myotome) 3-4wks gr4+ LLE myotome; stairs NT; 10/13/21; PARTIALLY MET Planned interventions include: aquatic therapy, cryotherapy, dry needling, education/instruction , electrical stimulation, gait training, home program, hot pack, manual therapy, self care/home management, therapeutic exercises and IASTM/cupping. Potential to achieve rehab goals is good Progress with POC, as tolerated. Discharge patient: the patient agrees to D/C to ongoing HEP with progress achieved; the patient may consider needling for sx management if in the future if sx return. Assessment Patient identity confirmed today with name/. the patient seems to be walking more upright today; see goals; good ADL and strength gains; added to HEP and given handout. Response to treatment: decreased pain, improved flexibility, improved posture and improved knowledge and understanding of condition. Patient was able to complete today's treatment with some difficulty. Adult Risk Screening There are no spiritual/cultural practices/values/need s that are important to know Initial Fall Risk Screening: IVONNE has not fallen in the last 6 months. IVONNE does not have a fear of falling. She does not need assistance with sitting, standing or walking. Does not need assistance walking in her home. She does not need assistance in an unfamiliar setting. The patient is not using an assistive device. Please identify location of pain: RLB and R butt. Insurance Insurance reviewed Visit number: 5 [facility] 35$ copay Evaluating therapist Maximiliano Garland PT. M48.061 Subjective Patient reports:. 03/14 soreness right now. I am trying to walk more upright. I think this is helping-I am not having the spasms anymore. I think I just need to do the HEP consistently-I did not do this last time. Precautions: Fall Risk: none Pertinent medical HX includes: osteopenia. Treatment Time in clinic started at 11:22 am Time in clinic ended at 11:52 am Total time in clinic is 30 minutes. Therapeutic exercise (29102): timed minutes 10, units 1 . reviewed HEP wall march 2x10 ea N NOT TODAY golf swing [facility] review X wall lean with mini squat x10 X hooklying clamshell 2x10 faith SLR B 2x10 [P - reps] bridges 2x10 hip ext stretch 45 ea pirif stretch x45 B LTR x10 hooklying hip add (ball squeeze), 2x10 hooklying alt marches with TrA: x20 ea hip ext OET 2x10 ea seated Hadd 2x10 ea green [P - resistance] core stability and trunk [facility] trng.-A . Manual Therapy (00390):. DN-50mm B lumb paraspinals-10' unbilled-A STW-A. Provided today:. HEP handout. 'Scores and Scales' Signatures Electronically signed by : Forest Garland, PT; Oct 13 2021 11:53AM EST (Author) Normal Floobits PT Progress Noteon 2 PT Progress Note Therapy Diagnosis Assessed Spinal stenosis, lumbar (724.02) (M48.061) Plan Goals: Goals set and discussed today. 1. Independent HEP to allow for 50% reduction in max ADL C/C sx ( 07/12) 2-3wks 2. Survey score improvement from 20% to 10% (LAI) 2-3wks 3. ROM increase to allow for improved ADL car transfers, dressing lowers (from 4. Strength increase to allow for improved ADL walking (from gr4- to gr4+ abdominals) 3-4wks 5. Strength increase to allow for improved ADL stairs (from Planned interventions include: aquatic therapy, cryotherapy, dry needling, education/instruction , electrical stimulation, gait training, home program, hot pack, manual therapy, self care/home management, therapeutic exercises and IASTM/cupping. Potential to achieve rehab goals is good monitor for needling effects next visit; possible D/C . Progress with POC, as tolerated. Assessment Patient motivated to progress. Added ex's for core strengthening/stabili ty with good tolerance and response. Patient voices compliance with current HEP. the patient prefers to hold pool and trial needling and continued land ex emphasis; most reactive with distal needles today. Response to treatment: decreased pain, improved flexibility, improved posture and improved knowledge and understanding of condition. Patient was able to complete today's treatment with some difficulty. Adult Risk Screening There are no spiritual/cultural practices/values/need s that are important to know Initial Fall Risk Screening: IVONNE has not fallen in the last 6 months. IVONNE does not have a fear of falling. She does not need assistance with sitting, standing or walking. Does not need assistance walking in her home. She does not need assistance in an unfamiliar setting. The patient is not using an assistive device. Please identify location of pain: RLB and R butt. Insurance Insurance reviewed Visit number: 4 [facility] 35$ copay Evaluating therapist Maximiliano Garland PT. M48.061 Subjective Patient reports:. 03/14 pain right now. I golfed and my sx got worse. I attempted to reduce my swing for awhile but then got back to full swinging. I no longer have the grabbing pian. Precautions: Fall Risk: none Pertinent medical HX includes: osteopenia. Treatment Time in clinic started at 10:53 am Time in clinic ended at 11:30 am Total time in clinic is 37 minutes. Total timed code time is 25 minutes. Therapeutic exercise (58320): timed minutes 25, units 2 . golf swing mech review X wall lean with mini squat x10 X hooklying clamshell 2x10 faith SLR R 2x10 [P - reps] bridges 2x10 hip ext stretch 45 ea pirif stretch x45 B LTR x10 hooklying hip add (ball squeeze), 2x10 hooklying alt marches with TrA: x20 ea hip ext OET 2x10 ea seated Hadd 2x10 ea green [P - resistance] core stability and trunk mech trng.-A pool unloading maybe pursued PRN-A. Manual Therapy (20491):. DN-50mm B lumb paraspinals-10' unbilled STW-A. 'Scores and Scales' Signatures Electronically signed by : Forest Garland, PT; Oct 06 2021 11:36AM EST (Author) Normal Floobits PT Progress Noteon 2 PT Progress Note Therapy Diagnosis Assessed Spinal stenosis, lumbar (724.02) (M48.061) Plan Goals: Goals set and discussed today. 1. Independent HEP to allow for 50% reduction in max ADL C/C sx ( 5/10) 2-3wks 2. Survey score improvement from 20% to 10% (LAI) 2-3wks 3. ROM increase to allow for improved ADL car transfers, dressing lowers (from 4. Strength increase to allow for improved ADL walking (from gr4- to gr4+ abdominals) 3-4wks 5. Strength increase to allow for improved ADL stairs (from Planned interventions include: aquatic therapy, cryotherapy, dry needling, education/instruction , electrical stimulation, gait training, home program, hot pack, manual therapy, self care/home management, therapeutic exercises and IASTM/cupping. Potential to achieve rehab goals is good consider needling if no sx improvements from present exercise program . Progress with POC, as tolerated. Assessment Patient motivated to progress. Added ex's for core strengthening/stabili ty with good tolerance and response. Patient voices compliance with current HEP. Response to treatment: decreased pain, improved flexibility, improved posture and improved knowledge and understanding of condition. Patient was able to complete today's treatment with some difficulty. Adult Risk Screening There are no spiritual/cultural practices/values/need s that are important to know Initial Fall Risk Screening: IVONNE has not fallen in the last 6 months. IVONNE does not have a fear of falling. She does not need assistance with sitting, standing or walking. Does not need assistance walking in her home. She does not need assistance in an unfamiliar setting. The patient is not using an assistive device. Please identify location of pain: RLB and R butt. Insurance Insurance reviewed Visit number: 3 [facility] 35$ copay Evaluating therapist Maximiliano Garland PT. M48.061 Subjective Patient reports:. Golfed 18 holes yesterday without too much difficulty. Did not use Process Controller; [address] Not having too much pain this morning, mostly discomfort and muscle soreness from golfing. Precautions: Fall Risk: none Pertinent medical HX includes: osteopenia. Treatment Time in clinic started at 0916 Time in clinic ended at 1000 Total time in clinic is 44 minutes. Total timed code time is 40 minutes. Therapeutic exercise (79726): timed minutes 40, units 3 . golf swing mec review wall lean with mini squat x10 X hooklying clamshell 2x10 faith SLR R 3x10 [P - reps] pirif stretch 2x30 B LTR x10 hooklying alt marches with TrA: x20 ea [N] hooklying hip add (ball squeeze), 2x10 [N] bridges: 2x10 [N] hip ext stretch -30 ea [X] hip ext OET 2x10 ea seated Hadd 2x10 ea green [P - resistance] core stability and trunk mech trng.-A pool unloading maybe pursued PRN-A. Manual Therapy (80908):. STW-A. 'Scores and Scales' Signatures Electronically signed by : Dion Urbina OCCUPATIONAL PSYCHOLOGIST; Oct 04 2021 10:01AM EST (Author) Electronically signed by : Forest Garland, PT; Oct 05 2021 6:57AM EST Normal WaveCheck PT Progress Noteon 2 PT Progress Note Therapy Diagnosis Assessed Spinal stenosis, lumbar (724.02) (M48.061) Plan Goals: Goals set and discussed today. 1. Independent HEP to allow for 50% reduction in max ADL C/C sx ( 5/10) 2-3wks 2. Survey score improvement from 20% to 10% (LAI) 2-3wks 3. ROM increase to allow for improved ADL car transfers, dressing lowers (from 4. Strength increase to allow for improved ADL walking (from gr4- to gr4+ abdominals) 3-4wks 5. Strength increase to allow for improved ADL stairs (from Planned interventions include: aquatic therapy, cryotherapy, dry needling, education/instruction , electrical stimulation, gait training, home program, hot pack, manual therapy, self care/home management, therapeutic exercises and IASTM/cupping. Potential to achieve rehab goals is good consider needling if no sx improvements from present exercise program. Plan of care was developed with input and agreement by the patient. Assessment Patient identity confirmed today with name/. the patient motions to the R SI area as the present area of sx;. Clinical Presentation: Stable and/or uncomplicated characteristics. Level of Complexity: low Problem List: activity limitations, ADLs/IADLs/self care skills, decreased functional level, decreased knowledge of HEP, decreased knowledge of precautions, gait/locomotion, pain, range of motion/joint mobility, strength and transfers. Reason For Visit Initial Evaluation . lumbar stenosis. Referred by: Laura Grant MD Adult Risk Screening There are no spiritual/cultural practices/values/need s that are important to know Initial Fall Risk Screening: IVONNE has not fallen in the last 6 months. IVONNE does not have a fear of falling. She does not need assistance with sitting, standing or walking. Does not need assistance walking in her home. She does not need assistance in an unfamiliar setting. The patient is not using an assistive device. Please identify location of pain: RLB and R butt. Insurance Insurance reviewed Visit number: 2 [facility] 35$ copay Evaluating therapist Maximiliano Garland PT. M48.061 Subjective Patient reports:. 310 pain right now. Precautions: Fall Risk: none Pertinent medical HX includes: osteopenia. Current Episode of Functional Impairment and/or Pain Date of onset: 09/07/21 Mechanism of Injury:. noted LLE weakness roughly 2 wks ago. Medical Screening: Reviewed medical history form with patient and medical screening assessed. Current Medical Management:. no recent testing; S/P lumbar fusion February of 2021. Functional Assessment Prior level of function: PAINFUL, DIFFICULT, OR ALTERED ADL (marked with an xx) sleep-- sitting-- sit to standing transfers-- car transfers--XX standing-- walking--XX carrying-- stairs--XX dressing lowers--XX driving-- dressing uppers-- reaching---- handling objects-- other-- . Patient stated goal(s) for treatment include: relieving pain , increasing strength , increasing mobility , walking with a normal gait , reducing symptoms , reducing/preventing future occurrences and learning preventative care measures . Work Status: retired. Current Status: improving. Patient Awareness: Patient is aware of her diagnosis and prognosis. Personal Factors That May Impact Care:. ID confirmed with B-day; speaks mozambican No obtrusive barriers to learning identified/observed. Objective Ortho gr4- abdominals. ROM / Joint Mobility (Range of Motion in degrees) Lumbar: (Pratt = P! Denotes Pain with Movement) Extension: Active 20%. Flexion: Active 60%. Side Bend: R Active 40%, L Active 40%. No increased C/C sx with trunk ROM. Neurological Right Myotomal Testing: L2 hip flexion normal, L3 knee extension normal, L4 ankle dorsiflexion, inversion normal, L5 great toe extension normal, S1 ankle plantar flexion and eversion normal Left Myotomal Testing: L2 hip flexion impaired gr4, L3 knee extension impaired gr4, L4 ankle dorsiflexion, inversion normal, L5 great toe extension normal, S1 ankle plantar flexion and eversion normal Outcome Measures Modified Oswestry Low Back Pain Disability Index score: 20% Treatment Time in clinic started at 5:08 pm Time in clinic ended at 5:40 pm Total time in clinic is 32 minutes. Total timed code time is 30 minutes. Therapeutic exercise (48220): timed minutes 30, units 2 . golf swing [facility] review wall lean with mini squat x10 X hooklying clamshell 2x10 faith N SLR R 2x10 N pirif stretch 30 B N LTR x10 N hip ext stretch -30 ea hip ext OET 2x10 ea N seated Hadd 2x10 ea orange P core stability and trunk [facility] trng.-A pool unloading maybe pursued PRN-A. Manual Therapy (59841):. STW-A. Evaluation Code: 83643 PT Eval: Low Complexity, 30 min(s). Timed: 15 min(s), 1 unit(s). Resources provided today: HEP handout; Tband. Contacts for Physician Signature First attempt date: 09/21/21. Referring Provider Signature: I am in agreement w (more content not included)... Normal [facility] PT Initial Evaluationon 07-2 PT Initial Evaluation Therapy Diagnosis Assessed Spinal stenosis, lumbar (724.02) (M48.061) Plan of Care Goals: Goals set and discussed today. 1. Independent HEP to allow for 50% reduction in max ADL C/C sx ( 5/10) 2-3wks 2. Survey score improvement from 20% to 10% (LAI) 2-3wks 3. ROM increase to allow for improved ADL car transfers, dressing lowers (from 4. Strength increase to allow for improved ADL walking (from gr4- to gr4+ abdominals) 3-4wks 5. Strength increase to allow for improved ADL stairs (from Planned interventions include: aquatic therapy, cryotherapy, dry needling, education/instruction , electrical stimulation, gait training, home program, hot pack, manual therapy, self care/home management, therapeutic exercises and IASTM/cupping. Potential to achieve rehab goals is good Plan of care was developed with input and agreement by the patient. Assessment S/P lumbar fusion last February. Recent onset of LLE weakness and RLBP and R butt sx. No recent testing was done. The patient hopes to get back to golfing. Physical findings include LLE myotome weakness and trunk ROM limitation. Golf swing mech were reviewed to reduce trunk torsion. Continue with core stability and trunk mech trng. STW and/or pool unloading maybe pursued PRN. Clinical Presentation: Stable and/or uncomplicated characteristics. Level of Complexity: low Problem List: activity limitations, ADLs/IADLs/self care skills, decreased functional level, decreased knowledge of HEP, decreased knowledge of precautions, gait/locomotion, pain, range of motion/joint mobility, strength and transfers. Reason For Visit Initial Evaluation . lumbar stenosis. Referred by: Laura Grant MD Adult Risk Screening There are no spiritual/cultural practices/values/need s that are important to know Initial Fall Risk Screening: IVONNE has not fallen in the last 6 months. IVONNE does not have a fear of falling. She does not need assistance with sitting, standing or walking. Does not need assistance walking in her home. She does not need assistance in an unfamiliar setting. The patient is not using an assistive device. Pain Scale: On a scale of 0 to 10, the patient rates the pain at 4. Please identify location of pain: RLB and R butt. Insurance Insurance reviewed Visit number: 1 [facility] 35$ copay Evaluating therapist Maximiliano Garland PT. M48.061 Subjective Current Episode of Functional Impairment and/or Pain Date of onset: 09/07/21 Mechanism of Injury:. noted LLE weakness roughly 2 wks ago. Medical Screening: Reviewed medical history form with patient and medical screening assessed. Current Medical Management:. no recent testing; S/P lumbar fusion February of 2021. Precautions: Fall Risk: none Pertinent medical HX includes: osteopenia. Functional Assessment Prior level of function: PAINFUL, DIFFICULT, OR ALTERED ADL (marked with an xx) sleep-- sitting-- sit to standing transfers-- car transfers--XX standing-- walking--XX carrying-- stairs--XX dressing lowers--XX driving-- dressing uppers-- reaching---- handling objects-- other-- . Patient stated goal(s) for treatment include: relieving pain , increasing strength , increasing mobility , walking with a normal gait , reducing symptoms , reducing/preventing future occurrences and learning preventative care measures . Work Status: retired. Current Status: improving. Patient Awareness: Patient is aware of her diagnosis and prognosis. Personal Factors That May Impact Care:. ID confirmed with B-day; speaks mozambican No obtrusive barriers to learning identified/observed. Objective Ortho gr4- abdominals. ROM / Joint Mobility (Range of Motion in degrees) Lumbar: (Pratt = P! Denotes Pain with Movement) Extension: Active 20%. Flexion: Active 60%. Side Bend: R Active 40%, L Active 40%. No increased C/C sx with trunk ROM. Neurological Right Myotomal Testing: L2 hip flexion normal, L3 knee extension normal, L4 ankle dorsiflexion, inversion normal, L5 great toe extension normal, S1 ankle plantar flexion and eversion normal Left Myotomal Testing: L2 hip flexion impaired gr4, L3 knee extension impaired gr4, L4 ankle dorsiflexion, inversion normal, L5 great toe extension normal, S1 ankle plantar flexion and eversion normal Outcome Measures Modified Oswestry Low Back Pain Disability Index score: 20% Treatment Time in clinic started at 9:38 am Time in clinic ended at 10:30 am Total time in clinic is 52 minutes. Total timed code time is 15 minutes. Treatment Performed Today:. golf swing [facility] review wall lean with mini squat x10 hip ext stretch -30 ea seated Hadd x10 ea yellow core stability and trunk [facility] trng.-A STW -A pool unloading maybe pursued PRN-A. Evaluation Code: 39314 PT Eval: Low Complexity, 30 min(s). Timed: 95852 Therapeutic Exercises, 15 min(s), 1 unit(s). Resources provided today: HEP handout; Tband. Contacts for Physician Signature First attemp (more content not included)... Normal WaveCheck Clinical Summary: Kavitha giron 04-25-2021 [facility] OP Visit Invalid Interpretation Code [facility] Work Phone: Office Visit: Postop - 1st v isit, Rm: 2on 04-25-2021 NEGATED: Highlighted rowxray history of the lumbar spine on 03/23/2021 at [facility] Invalid Interpretation Code [facility] Work Phone: PT Progress Noteon 1 PT Progress Note Therapy Diagnosis Assessed Pain of left sacroiliac joint (724.6) (M53.3) Strain of muscle, fascia and tendon of the posterior muscle group at thigh level, left thigh, subsequent encounter (843.8) (S76.312D) Gait difficulty (781.2) (R26.9) Plan Goals: Goals set and discussed today. Pt will demo and report compliance with HEP in order to augment POC goals and progression toward independence with symptom management for better outcomes once D/C from POC. , by week 2 Activity Limitation: Pt will demo improved ease with ascending/descending stairs with reciprocal pattern and improved eccentric control to decrease fall risk. , by week 6 Gait/Locomotion: Pt will demo improved gait mechanics with least restrictive device, even step length, stance time, proper heel strike and push off, and min-no evidence of instability or antalgic gait for return to PLOF. Pain: Pt will report subjective improvement with c/o pain at worst decreased from 7/10 to , by week 6 Strength: Pt will demo improved MMT by >/= 1 point on 0-5 point scale in BLE's for improved strength and stability, and improved ease with transfers, lifting/carrying, and proper mechanics with ADL?s AND IADL?s. , by week 6 Transfers: Pt will demo improved ease with sit<>stand with min UE A and improved eccentric control for decreased fall risk and improved ease with transfers. , by week 6 LAI, Pt will report subjective improvement with score on LAI improved by >/= 5 points for return to PLOF, improved QOL, and improved ease with ADL?s AND IADL?s. , by week 6 Planned interventions include: aquatic therapy, cryotherapy, education/instruction , gait training, home program, hot pack, kinesiotaping, manual therapy, neuromuscular re-education, self care/home management, therapeutic activities, therapeutic exercises and IASTM/CUPPING . Focus on manual techniques and [place] DLS and Glute retraining. Frequency and duration: 2 time(s) a week, for 3 weeks . then 1xweek for 3 weeks for 6 weeks total with POC of 10 visits. Potential to achieve rehab goals is good Cont. with manual therapy to reduce soft tissue restrictions/pain and strengthening to allow improved ease with navigating stairs and increased endurance with community ambulation. Assessment Patient identified by name and date of . Patient presented with pelvic malalignment that responded well to STW. She demonstrated good understanding with kegels and review of HEP. She presented with tension in hip flexors, gluts, and IT band with STW. Adult Risk Screening There are no spiritual/cultural practices/values/need s that are important to know Initial Fall Risk Screening: IVONNE has fallen in the last 6 months. IVONNE has a fear of falling. She does not need assistance with sitting, standing or walking. Does not need assistance walking in her home. She does not need assistance in an unfamiliar setting. The patient is not using an assistive device. Fall Risk Screening: Patient is identified as a fall risk. Care Plan: Low Risk: Environmental for all patients and low risk patients: Offer assistance as needed or requested, keep environment free of obstacles, keep floor clean and dry, keep room lighting, wheelchair brakes on, bed/ stretcher locked and in low position if applicable, non-slip footwear if applicable, walker/cane available if needed, side rails up if applicable and pre-emptive toileting. Pain Scale: On a scale of 0 to 10, the patient rates the pain at 3. Please identify location of pain: Left lateral aspect of leg. Pain Quality: aching, pressure, spasm and tightness. The pain makes it hard for the patient to do these things: walking, exercise, sleep, work, house work, relationships with family or friends and self-care (bathing, dressing, eating). Domestic Violence Screen: Does not feel threatened or abused physically, emotionally or sexually. Do you feel UNSAFE? The patient feels safe in the home. Depression/Suicide Screening: During the past 2 weeks, the patient has not felt down, depressed or hopeless. During the past 2 weeks, the patient has not felt little interest or pleasure in doing things. Insurance Insurance reviewed Visit number: 5 Approved number of visits: 10 Authorization date range: 10/26/20-01/23/21 Authorization not required after evaluation POC: 07/12 [employer] Medicare Adv-$40 copay-EVAL ONLY Supervising PT: Vidhi Barker PT, DPT, Cert DN PT Dx: M53.3; S76.312D; R26.9 Onset Date: 2020 Medicare Certification Period: Beginnin2020 Endin2020 Subjective Patient reports:. Patient reported the last 4 days she feels good in the AM then within 2 hours her surgery hip increases Sx in the posterior region that goes around to the groin. She reported a reduction of Sx after her last session that lasted a few days. She reported increased muscle soreness after treatment. Home program performing as directed: Partially . She does what she can due to pain. Precau (more content not included)... Normal Touchworks PT Progress Noteon 1 PT Progress Note Therapy Diagnosis Assessed Pain of left sacroiliac joint (724.6) (M53.3) Strain of muscle, fascia and tendon of the posterior muscle group at thigh level, left thigh, subsequent encounter (843.8) (S76.312D) Gait difficulty (781.2) (R26.9) Plan Goals: Goals set and discussed today. Pt will demo and report compliance with HEP in order to augment POC goals and progression toward independence with symptom management for better outcomes once D/C from POC. , by week 2 Activity Limitation: Pt will demo improved ease with ascending/descending stairs with reciprocal pattern and improved eccentric control to decrease fall risk. , by week 6 Gait/Locomotion: Pt will demo improved gait mechanics with least restrictive device, even step length, stance time, proper heel strike and push off, and min-no evidence of instability or antalgic gait for return to PLOF. Pain: Pt will report subjective improvement with c/o pain at worst decreased from 7/10 to , by week 6 Strength: Pt will demo improved MMT by >/= 1 point on 0-5 point scale in BLE's for improved strength and stability, and improved ease with transfers, lifting/carrying, and proper mechanics with ADL?s AND IADL?s. , by week 6 Transfers: Pt will demo improved ease with sit<>stand with min UE A and improved eccentric control for decreased fall risk and improved ease with transfers. , by week 6 LIA, Pt will report subjective improvement with score on LAI improved by >/= 5 points for return to PLOF, improved QOL, and improved ease with ADL?s AND IADL?s. , by week 6 Planned interventions include: aquatic therapy, cryotherapy, education/instruction , gait training, home program, hot pack, kinesiotaping, manual therapy, neuromuscular re-education, self care/home management, therapeutic activities, therapeutic exercises and IASTM/CUPPING . Focus on manual techniques and OKC DLS and Glute retraining. Frequency and duration: 2 time(s) a week, for 3 weeks . then 1xweek for 3 weeks for 6 weeks total with POC of 10 visits. Potential to achieve rehab goals is good Cont. with manual therapy to reduce soft tissue restrictions/pain and strengthening to allow improved ease with navigating stairs and increased endurance with community ambulation. Assessment Patient identified by name and date of . Patient presented with pelvic malalignment that responded well to MET. She was able to progress with kegels and reviewed progression of HEP. Reviewed sleeping positions, she demonstrated good understanding. She presented with tension in gluts that responded well to STW. Adult Risk Screening There are no spiritual/cultural practices/values/need s that are important to know Initial Fall Risk Screening: IVONEN has fallen in the last 6 months. IVONNE has a fear of falling. She does not need assistance with sitting, standing or walking. Does not need assistance walking in her home. She does not need assistance in an unfamiliar setting. The patient is not using an assistive device. Fall Risk Screening: Patient is identified as a fall risk. Care Plan: Low Risk: Environmental for all patients and low risk patients: Offer assistance as needed or requested, keep environment free of obstacles, keep floor clean and dry, keep room lighting, wheelchair brakes on, bed/ stretcher locked and in low position if applicable, non-slip footwear if applicable, walker/cane available if needed, side rails up if applicable and pre-emptive toileting. Pain Scale: On a scale of 0 to 10, the patient rates the pain at 4. Please identify location of pain: Left lateral aspect of leg. Pain Quality: aching, pressure, spasm and tightness. The pain makes it hard for the patient to do these things: walking, exercise, sleep, work, house work, relationships with family or friends and self-care (bathing, dressing, eating). Domestic Violence Screen: Does not feel threatened or abused physically, emotionally or sexually. Do you feel UNSAFE? The patient feels safe in the home. Depression/Suicide Screening: During the past 2 weeks, the patient has not felt down, depressed or hopeless. During the past 2 weeks, the patient has not felt little interest or pleasure in doing things. Insurance Insurance reviewed Visit number: 4 Approved number of visits: 10 Authorization date range: 10/26/20-01/23/21 Authorization not required after evaluation POC: 06/12 [employer] Medicare Adv-$40 copay-EVAL ONLY Supervising PT: Vidhi Barker PT, DPT, Cert DN PT Dx: M53.3; S76.312D; R26.9 Onset Date: 2020 Medicare Certification Period: Beginnin2020 Endin2020 Subjective Patient reports:. Patient reported decreased Sx after treatment with mild muscle soreness. Home program performing as directed: Yes. Precautions: Fall Risk: moderate Recent Right hip surgery; OA; HTN. Treatment Time in clinic started at 09:18 Time in clinic ended at 10:01 Total time in clinic is 43 minutes. Total timed code time (more content not included)... Normal [facility] Therapy Communicationon Therapy Communication Message IVONNE MAYA canceled today . Patient called to cancel secondary to being exposed to COVID. Signatures Electronically signed by : Merline Weller PTA; Nov 05 2020 9:39AM EST (Author) [facility] PT Progress Noteon PT Progress Note Therapy Diagnosis Assessed Pain of left sacroiliac joint (724.6) (M53.3) Strain of muscle, fascia and tendon of the posterior muscle group at thigh level, left thigh, subsequent encounter (843.8) (S76.312D) Gait difficulty (781.2) (R26.9) Plan Goals: Goals set and discussed today. Pt will demo and report compliance with HEP in order to augment POC goals and progression toward independence with symptom management for better outcomes once D/C from POC. , by week 2 Activity Limitation: Pt will demo improved ease with ascending/descending stairs with reciprocal pattern and improved eccentric control to decrease fall risk. , by week 6 Gait/Locomotion: Pt will demo improved gait mechanics with least restrictive device, even step length, stance time, proper heel strike and push off, and min-no evidence of instability or antalgic gait for return to PLOF. Pain: Pt will report subjective improvement with c/o pain at worst decreased from 7/10 to , by week 6 Strength: Pt will demo improved MMT by >/= 1 point on 0-5 point scale in BLE's for improved strength and stability, and improved ease with transfers, lifting/carrying, and proper mechanics with ADL?s AND IADL?s. , by week 6 Transfers: Pt will demo improved ease with sit<>stand with min UE A and improved eccentric control for decreased fall risk and improved ease with transfers. , by week 6 LAI, Pt will report subjective improvement with score on LAI improved by >/= 5 points for return to PLOF, improved QOL, and improved ease with ADL?s AND IADL?s. , by week 6 Planned interventions include: aquatic therapy, cryotherapy, education/instruction , gait training, home program, hot pack, kinesiotaping, manual therapy, neuromuscular re-education, self care/home management, therapeutic activities, therapeutic exercises and IASTM/CUPPING . Focus on manual techniques and OKC DLS and Glute retraining. Frequency and duration: 2 time(s) a week, for 3 weeks . then 1xweek for 3 weeks for 6 weeks total with POC of 10 visits. Potential to achieve rehab goals is good Cont. with manual therapy to reduce soft tissue restrictions/pain and strengthening to allow improved ease with navigating stairs and increased endurance with community ambulation. Assessment Patient was identified by name and date. IASTM/STM completed to reduce soft tissue restrictions at L hip musculature including IT band. Checked pelvic symmetry and no intervention needed. Instructed and completed pelvic floor exercises to add to her HEP. Handout unavailable and will be given next session. Patient voiced good understanding. Completed all new additions to her program without c/o. Adult Risk Screening There are no spiritual/cultural practices/values/need s that are important to know Initial Fall Risk Screening: IVONNE has fallen in the last 6 months. IVONNE has a fear of falling. She does not need assistance with sitting, standing or walking. Does not need assistance walking in her home. She does not need assistance in an unfamiliar setting. The patient is not using an assistive device. Fall Risk Screening: Patient is identified as a fall risk. Care Plan: Low Risk: Environmental for all patients and low risk patients: Offer assistance as needed or requested, keep environment free of obstacles, keep floor clean and dry, keep room lighting, wheelchair brakes on, bed/ stretcher locked and in low position if applicable, non-slip footwear if applicable, walker/cane available if needed, side rails up if applicable and pre-emptive toileting. Pain Scale: On a scale of 0 to 10, the patient rates the pain at 2. Please identify location of pain: Left lateral aspect of leg. Pain Quality: aching, pressure, spasm and tightness. The pain makes it hard for the patient to do these things: walking, exercise, sleep, work, house work, relationships with family or friends and self-care (bathing, dressing, eating). Domestic Violence Screen: Does not feel threatened or abused physically, emotionally or sexually. Do you feel UNSAFE? The patient feels safe in the home. Depression/Suicide Screening: During the past 2 weeks, the patient has not felt down, depressed or hopeless. During the past 2 weeks, the patient has not felt little interest or pleasure in doing things. Insurance Insurance reviewed Visit number: 3 Approved number of visits: 10 Authorization date range: 8/24/21-01/23/21 Authorization not required after evaluation POC: 05/12 [place] Medicare Adv-$40 copay-EVAL ONLY Supervising PT: Vidhi Barker PT, DPT, Cert DN PT Dx: M53.3; S76.312D; R26.9 Onset Date: 2020 Medicare Certification Period: Beginnin2020 Endin2020 Subjective Patient reports:. She reports discomfort down the posterior aspect of L thigh. Notes difficulty with navigating steps and longer timeframes of walking/standing. Precautions: Fall Risk: moderate Recent Right hip surgery; OA; HTN. Treatment Time in cli (more content not included)... [facility] PT Progress Noteon PT Progress Note Therapy Diagnosis Assessed Gait difficulty (781.2) (R26.9) Pain of left sacroiliac joint (724.6) (M53.3) Strain of muscle, fascia and tendon of the posterior muscle group at thigh level, left thigh, subsequent encounter (843.8) (S76.312D) Plan Goals: Goals set and discussed today. Pt will demo and report compliance with HEP in order to augment POC goals and progression toward independence with symptom management for better outcomes once D/C from POC. , by week 2 Activity Limitation: Pt will demo improved ease with ascending/descending stairs with reciprocal pattern and improved eccentric control to decrease fall risk. , by week 6 Gait/Locomotion: Pt will demo improved gait mechanics with least restrictive device, even step length, stance time, proper heel strike and push off, and min-no evidence of instability or antalgic gait for return to PLOF. Pain: Pt will report subjective improvement with c/o pain at worst decreased from 7/10 to , by week 6 Strength: Pt will demo improved MMT by >/= 1 point on 0-5 point scale in BLE's for improved strength and stability, and improved ease with transfers, lifting/carrying, and proper mechanics with ADL?s AND IADL?s. , by week 6 Transfers: Pt will demo improved ease with sit<>stand with min UE A and improved eccentric control for decreased fall risk and improved ease with transfers. , by week 6 LAI, Pt will report subjective improvement with score on LAI improved by >/= 5 points for return to PLOF, improved QOL, and improved ease with ADL?s AND IADL?s. , by week 6 Planned interventions include: aquatic therapy, cryotherapy, education/instruction , gait training, home program, hot pack, kinesiotaping, manual therapy, neuromuscular re-education, self care/home management, therapeutic activities, therapeutic exercises and IASTM/CUPPING . Focus on manual techniques and OKC DLS and Glute retraining. Frequency and duration: 2 time(s) a week, for 3 weeks . then 1xweek for 3 weeks for 6 weeks total with POC of 10 visits. Potential to achieve rehab goals is good Plan to continue with manual therapy techniques as well as progress with ther-ex as able. Focus on core musculature and alignment. Progress with POC, as tolerated. Assessment Pt confirmed via and Full Name. Verbally reviewed HEP at start of session with good compliance so far since evaluation. Pt able to initiate some ther-ex this date with good tolerance but some minimal catching in Left hip with last 30 sec on rec bike. Improved after hip flexor and ADD stretches this date. Adult Risk Screening There are no spiritual/cultural practices/values/need s that are important to know Initial Fall Risk Screening: IVONNE has fallen in the last 6 months. IVONNE has a fear of falling. She does not need assistance with sitting, standing or walking. Does not need assistance walking in her home. She does not need assistance in an unfamiliar setting. The patient is not using an assistive device. Fall Risk Screening: Patient is identified as a fall risk. Care Plan: Low Risk: Environmental for all patients and low risk patients: Offer assistance as needed or requested, keep environment free of obstacles, keep floor clean and dry, keep room lighting, wheelchair brakes on, bed/ stretcher locked and in low position if applicable, non-slip footwear if applicable, walker/cane available if needed, side rails up if applicable and pre-emptive toileting. Pain Scale: On a scale of 0 to 10, the patient rates the pain at 5. Please identify location of pain: Left buttocks. Pain Quality: aching, pressure, spasm and tightness. The pain makes it hard for the patient to do these things: walking, exercise, sleep, work, house work, relationships with family or friends and self-care (bathing, dressing, eating). Domestic Violence Screen: Does not feel threatened or abused physically, emotionally or sexually. Do you feel UNSAFE? The patient feels safe in the home. Depression/Suicide Screening: During the past 2 weeks, the patient has not felt down, depressed or hopeless. During the past 2 weeks, the patient has not felt little interest or pleasure in doing things. Insurance Insurance reviewed Visit number: 2 Approved number of visits: 10 Authorization date range: 10/26/20-01/23/21 Authorization not required after evaluation POC: 04/14 [employer] Medicare Adv-$40 copay-EVAL ONLY Supervising PT: Vidhi Barker PT, DPT, Cert DN PT Dx: M53.3; S76.312D; R26.9 Onset Date: 2020 Medicare Certification Period: Beginnin2020 Endin2020 Subjective Patient reports:. Pt notes she was a little sore after last session but did ice that night and that helped. Pt notes she was going to bring papers of her post-op exercises for her Right hip as she wanted to review her exercises to see if they are ok for her to start at home. Pt notes she doesn't think she has as much pain on top part of her Left hip since last session but notes (more content not included)... [facility] PT Initial Evaluationon 10-04 PT Initial Evaluation Therapy Diagnosis Assessed Pain of left sacroiliac joint (724.6) (M53.3) Strain of muscle, fascia and tendon of the posterior muscle group at thigh level, left thigh, subsequent encounter (843.8) (S76.312D) Gait difficulty (781.2) (R26.9) Plan of Care Goals: Goals set and discussed today. Pt will demo and report compliance with HEP in order to augment POC goals and progression toward independence with symptom management for better outcomes once D/C from POC. , by week 2 Activity Limitation: Pt will demo improved ease with ascending/descending stairs with reciprocal pattern and improved eccentric control to decrease fall risk. , by week 6 Gait/Locomotion: Pt will demo improved gait mechanics with least restrictive device, even step length, stance time, proper heel strike and push off, and min-no evidence of instability or antalgic gait for return to PLOF. Pain: Pt will report subjective improvement with c/o pain at worst decreased from 7/10 to , by week 6 Strength: Pt will demo improved MMT by >/= 1 point on 0-5 point scale in BLE's for improved strength and stability, and improved ease with transfers, lifting/carrying, and proper mechanics with ADL?s AND IADL?s. , by week 6 Transfers: Pt will demo improved ease with sit<>stand with min UE A and improved eccentric control for decreased fall risk and improved ease with transfers. , by week 6 LAI, Pt will report subjective improvement with score on LAI improved by >/= 5 points for return to PLOF, improved QOL, and improved ease with ADL?s AND IADL?s. , by week 6 Planned interventions include: aquatic therapy, cryotherapy, education/instruction , gait training, home program, hot pack, kinesiotaping, manual therapy, neuromuscular re-education, self care/home management, therapeutic activities, therapeutic exercises and IASTM/CUPPING . Focus on manual techniques and OKC DLS and Glute retraining. Frequency and duration: 2 time(s) a week, for 3 weeks . then 1xweek for 3 weeks for 6 weeks total with POC of 10 visits. Potential to achieve rehab goals is good Plan of care was developed with input and agreement by the patient. Assessment Ms. MAYA presents with signs and symptoms consistent with SI Joint Pain and Left Hip Pain and demonstrates impairments/limitatio ns in Lumbar AROM as well as Left [...] with lateral trunk lean and antalgic gait noted. Pt with significant point tenderness in Left [...] throughout POC to progress towards independence with ADL?s/IADL?s and return to PLOF. Clinical Presentation: Evolving with changing characteristics. Level of Complexity: low Problem List: activity limitations, ADLs/IADLs/self care skills, decreased functional level, fall risk, flexibility, motor function/control/tone , pain, participation restrictions, posture, range of motion/joint mobility, strength and transfers. Reason For Visit Initial Evaluation . SI Joint Pain and Left Hip Pain. Referred by: Abdirahman Toribio. Adult Risk Screening There are no spiritual/cultural practices/values/need s that are important to know Initial Fall Risk Screening: IVONNE has fallen in the last 6 months. IVONNE has a fear of falling. She does not need assistance with sitting, standing or walking. Does not need assistance walking in her home. She does not need assistance in an unfamiliar setting. The patient is not using an assistive device. Fall Risk Screening: Patient is identified as a fall risk. Care Plan: Low Risk: Environmental for all patients and low risk patients: Offer assistance as needed or requested, keep environment free of obstacles, keep floor clean and dry, keep room lighting, wheelchair brakes on, bed/ stretcher locked and in low position if applicable, non-slip footwear if applicable, walker/cane available if needed, side rails up if applicable and pre-emptive toileting. Pain Scale: On a scale of 0 to 10, the p (more content not included)... [facility] CT Inj Epidur Lumb/Sac 1 Lev LTon 10-06-2019 CT Inj Epidur Lumb/Sac 1 Lev LT Patient Name: IVONNE MAYA CT Exam Date/Time 10/06/2019 11:49:[address] Inj Epidur Lumb/Sac 1 Lev LT Ordering Physician LEEANNA TORIBIO ELLIOT N Accession Number [id number] CPT4 Codes 53039 (CT Inj Epidur Lumb/Sac 1 Lev LT) Reason For Exam pain left sacroiliac joint Report CT-guided left sacroiliac joint injection, 10/06/2019. Reason for procedure: Patient with left pelvic pain. Left sacroiliitis. Anesthesia: The procedure was performed with local anesthesia. Complications: None immediate. Procedure details and findings: The patient's previous studies were reviewed. After obtaining informed consent, the patient was brought to the CT procedure suite and positioned prone on the CT table. Localization scanning through the pelvis was performed. There were moderate hypertrophic degenerative changes at the sacroiliac joints bilaterally with relatively narrowed joint spaces. A suitable site for left SI joint injection was identified and marked. The access site was prepped and draped in usual sterile fashion. Following administration of local anesthetic, intermittent CT guidance was used to advance a 20-gauge spinal needle into the posterior aspect of the left SI joint in the mid sacral region. When satisfactory needle position had been achieved, a therapeutic injection of 40 mg of Kenalog and 1.5 mL of 0.25 percent bupivacaine was performed. The spinal needle was removed. A sterile dressing was applied at the puncture site. The patient tolerated the procedure well. IMPRESSION: CT-guided therapeutic left sacroiliac joint injection. Report Dictated on Final Dictated: 10/06/2019 12:48 pm Dictating Physician: MD CHUNG JOE M Signed Date and Time: 10/06/2019 12:57 pm Signed by: MD CHUNG JOE M Transcribed Date and Time: 10/06/2019 12:[address] [facility] [address] Inj Epidur Lumb/Sac 1 Lev Lefton 10-06-2019 Patient Name: IVONNE MAYA ---CT--- Exam Date/Time 10/06/2019 11:49:[address] Inj Epidur Lumb/Sac 1 Lev LT Ordering Physician LEEANNA TORIBIO ELLIOT N Accession Number [id number] CPT4 Codes 69320 (CT Inj Epidur Lumb/Sac 1 Lev LT) Reason For Exam pain left sacroiliac joint Report CT-guided left sacroiliac joint injection, 10/06/2019. Reason for procedure: Patient with left pelvic pain. Left sacroiliitis. Anesthesia: The procedure was performed with local anesthesia. Complications: None immediate. Procedure details and findings: The patient's previous studies were reviewed. After obtaining informed consent, the patient was brought to the CT procedure suite and positioned prone on the CT table. Localization scanning through the pelvis was performed. There were moderate hypertrophic degenerative changes at the sacroiliac joints bilaterally with relatively narrowed joint spaces. A suitable site for left SI joint injection was identified and marked. The access site was prepped and draped in usual sterile fashion. Following administration of local anesthetic, intermittent CT guidance was used to advance a 20-gauge spinal needle into the posterior aspect of the left SI joint in the mid sacral region. When satisfactory needle position had been achieved, a therapeutic injection of 40 mg of Kenalog and 1.5 mL of 0.25 percent bupivacaine was performed. The spinal needle was removed. A sterile dressing was applied at the puncture site. The patient tolerated the procedure well. IMPRESSION: CT-guided therapeutic left sacroiliac joint injection. Report Dictated on --- Final --- Dictated: 10/06/2019 12:48 pm Dictating Physician: MD CHUNG JOE M Signed Date and Time: 10/06/2019 12:57 pm Signed by: MD CHUNG JOE M Transcribed Date and Time: 10/06/2019 12:48 [place], [place] [facility] Incoming Radiology Results From [facility] - 10/06/2019 12:59 PM EDT Patient Name: IVONNE MAYA ---CT--- Exam Date/Time 10/06/2019 11:49:[address] Inj Epidur Lumb/Sac 1 Lev LT Ordering Physician LEEANNA TORIBIO ELLIOT N Accession Number [id number] CPT4 Codes 85320 (CT Inj Epidur Lumb/Sac 1 Lev LT) Reason For Exam pain left sacroiliac joint Report CT-guided left sacroiliac joint injection, 10/06/2019. Reason for procedure: Patient with left pelvic pain. Left sacroiliitis. Anesthesia: The procedure was performed with local anesthesia. Complications: None immediate. Procedure details and findings: The patient's previous studies were reviewed. After obtaining informed consent, the patient was brought to the CT procedure suite and positioned prone on the CT table. Localization scanning through the pelvis was performed. There were moderate hypertrophic degenerative changes at the sacroiliac joints bilaterally with relatively narrowed joint spaces. A suitable site for left SI joint injection was identified and marked. The access site was prepped and draped in usual sterile fashion. Following administration of local anesthetic, intermittent CT guidance was used to advance a 20-gauge spinal needle into the posterior aspect of the left SI joint in the mid sacral region. When satisfactory needle position had been achieved, a therapeutic injection of 40 mg of Kenalog and 1.5 mL of 0.25 percent bupivacaine was performed. The spinal needle was removed. A sterile dressing was applied at the puncture site. The patient tolerated the procedure well. IMPRESSION: CT-guided therapeutic left sacroiliac joint injection. Report Dictated on --- Final --- Dictated: 10/06/2019 12:48 pm Dictating Physician: MD CHUNG JOE M Signed Date and Time: 10/06/2019 12:57 pm Signed by: MD CHUNG JOE M Transcribed Date and Time: 10/06/2019 12:48 [facility] ARTHR/ASP/INJ MAJOR JT/BU RSA LT WO [facility] 09-24-2019 Patient Name: IVONNE MAYA ---Fluoroscopy--- Exam Date/Time 09/24/2019 11:41:25 EDT Exam RF Arthrogram Aspir Inj Ruiz Jt Left Ordering Physician LEEANNA TORIBIO ELLIOT N Accession Number [id number] CTP4 Codes 25948 (), 56614 (RF FLUORO GUIDANCE NEEDLE PLACEMENT) Reason For Exam pain of left sacroiliac joint Report Examination: Left sacroiliac joint injection Indication: Left SI joint pain Findings: Informed consent was obtained. Following this the patient was prepped and draped in a sterile fashion. It was difficult to profile the patient's sacroiliac joint by fluoroscopy. The patient's previous MRI on the [facility] PACS was reviewed. The posterior margin of the inferior joint was slightly directed laterally, as opposed to the traditional relative AP positioning of the joint along its inferior margin. Total fluoroscopy time was 0.3 minutes. Impression: Left SI joint injection not performed. The joint was difficult to profile under fluoroscopy. A CT-guided injection is recommended. This was discussed with the patient. Report Dictated on --- Final --- Dictated: 09/24/2019 2:04 pm Dictating Physician: MD SANCHEZ KRIKOR Signed Date and Time: 09/24/2019 2:07 pm Signed by: MD SANCHEZ KRIKOR Transcribed Date and Time: 09/24/2019 2:04 [facility] [place] Incoming Radiology Results From [facility] - 09/24/2019 2:09 PM EDT Patient Name: IVONNE MAYA ---Fluoroscopy--- Exam Date/Time 09/24/2019 11:41:25 EDT Exam RF Arthrogram Aspir Inj Ruiz Jt Left Ordering Physician LEEANNA TORIBIO ELLIOT N Accession Number [id number] CTP4 Codes 86411 (), 85340 (RF FLUORO GUIDANCE NEEDLE PLACEMENT) Reason For Exam pain of left sacroiliac joint Report Examination: Left sacroiliac joint injection Indication: Left SI joint pain Findings: Informed consent was obtained. Following this the patient was prepped and draped in a sterile fashion. It was difficult to profile the patient's sacroiliac joint by fluoroscopy. The patient's previous MRI on the [facility] PACS was reviewed. The posterior margin of the inferior joint was slightly directed laterally, as opposed to the traditional relative AP positioning of the joint along its inferior margin. Total fluoroscopy time was 0.3 minutes. Impression: Left SI joint injection not performed. The joint was difficult to profile under fluoroscopy. A CT-guided injection is recommended. This was discussed with the patient. Report Dictated on --- Final --- Dictated: 09/24/2019 2:04 pm Dictating Physician: MD SANCHEZ KRIKOR Signed Date and Time: 09/24/2019 2:07 pm Signed by: MD SANCHEZ KRIKOR Transcribed Date and Time: 09/24/2019 2:04 [place], [place] RF Arthrogram Aspir Inj Ruiz Jt Lefton 09-24-2019 RF Arthrogram Aspir Inj Ruiz Jt Left Patient Name: IVONNE MAYA Fluoroscopy Exam Date/Time 09/24/2019 11:41:25 EDT Exam RF Arthrogram Aspir Inj Ruiz Jt Left Ordering Physician LEEANNA TORIBIO ELLIOT N Accession Number [id number] [facility] Codes 81889 (), 26883 (RF FLUORO GUIDANCE NEEDLE PLACEMENT) Reason For Exam pain of left sacroiliac joint Report Examination: Left sacroiliac joint injection Indication: Left SI joint pain Findings: Informed consent was obtained. Following this the patient was prepped and draped in a sterile fashion. It was difficult to profile the patient's sacroiliac joint by fluoroscopy. The patient's previous MRI on the [facility] PACS was reviewed. The posterior margin of the inferior joint was slightly directed laterally, as opposed to the traditional relative AP positioning of the joint along its inferior margin. Total fluoroscopy time was 0.3 minutes. Impression: Left SI joint injection not performed. The joint was difficult to profile under fluoroscopy. A CT-guided injection is recommended. This was discussed with the patient. Report Dictated on Final Dictated: 09/24/2019 2:04 pm Dictating Physician: MD SANCHEZ KRIKOR Signed Date and Time: 09/24/2019 2:07 pm Signed by: MD SANCHEZ KRIKOR Transcribed Date and Time: 09/24/2019 2:04 Normal [facility] BD Bone Density DEXAon 11-12 BD Bone Density DEXA Exam Date/Time:11/10/2016 09:39 EDTReason for Exam:ASYMPTOMATIC MENOPAUSAL STATEReportBD BONE DENSITY DEXACLINICAL STATEMENT: Postmenopausal/osteop orosis evaluation.TECHNIQUE: DEXA bone density evaluation was performed of the lumbar spine andleft hip.COMPARISON: There are 6 prior exams dating from 2014 and 2002.FINDINGS: Total bone density in the lumbar spine from L1 through L4 is 0.979g/sq cm. The T-score is -0.6. The Z-score is 1.3. This is in the normal range.There is considerable degenerative changes associated with these measurements.This value is a 3.7% decrease in bone density from 2015.Left hip total bone density is 0.794 g/sq cm. The T-score is -1.2. The Z-scoreis +0.1. This is in the osteopenic range. This represents a 4.3% decrease inbone density from 2014 which is significant. There has been a 7.6% decrease inbone density since baseline study of 2002.IMPRESSION:1. Normal bone density of the lumbar spine although there has been a decreasein bone density from 2014.2. Osteopenic left hip again with a significant decrease in bone density [id number]. FINAL REPORT Dictated: 11/12/2016 11:26 am Danitza Haq DO RSigned (Electronic Signature): 11/12/2016 11:26 amSigned by: Danitza Haq DO Technologist: ERICA [facility] XR Shoulder Complete Righton 10-25-2016 INR Coag RelTime (Bld) Exam Date/Time:10/25/2016 11:01 EDTReason for Exam:right anterior shoulder painReportXR SHOULDER COMPLETE RIGHTCLINICAL STATEMENT: Nontraumatic several months of right shoulder pain.TECHNIQUE: Internal and external rotated views with scapular Y view.COMPARISON: None.FINDINGS: There is no fracture or dislocation. There is minor arthritic lippingoff the glenoid. Humeral head is generally thought to be satisfactory.Acromioc lavicular alignment is normal. No periarticular calcifications are seen.IMPRESSION:Minim al glenohumeral arthritis is seen without other definite pathology of theright shoulder. FINAL REPORT Dictated: 10/25/2016 2:34 pm Danitza Haq DO RSigned (Electronic Signature): 10/25/2016 2:34 pmSigned by: Danitza Haq DO Technologist: MANASA [facility] XR Spine Cervical 4 or 5 Vie wson 10-25-2016 XR Spine Cervical 4 or 5 Views Exam Date/Time:10/25/2016 11:01 EDTReason for Exam:cervical nerve root impingementReportXR SPINE CERVICAL, FOUR OR FIVE VIEWSCLINICAL STATEMENT: Left arm numbness from shoulder down to the fingertips.TECHNIQUE: AP, lateral, and oblique views.COMPARISON: None.FINDINGS: The alignment is satisfactory. I see no evidence of fracture.There are advanced degenerative disc disease findings. Significant disc spacenarrowing is seen at C4-C5, C5-C6, and C6-C7. In addition there is anterior andposterior spur and osteophyte formation. There is endplate sclerosis. In theoblique views there is some mild to moderate foraminal encroachment byspondylytic changes at the C3-C4 and C4-C5 levels on the left and at the I8ihecqyc C7 levels on the right. C1 and C2 appear anatomically aligned.IMPRESSION:Leeanna milan has developing moderate degenerative disc space narrowing withassociated spondylitic changes and endplate arthritic findings from C4 throughC7 with areas of developing mild to moderate foraminal encroachment asdescribed above. FINAL REPORT Dictated: 10/25/2016 2:34 pm Danitza Haq DO RSigned (Electronic Signature): 10/25/2016 2:34 pmSigned by: Danitza Haq DO Technologist: HLLeodan [facility] No Panel Information [facility] Respiratory pathogens DNA an d RNA 12b panel MONA+probe (Unsp spec) Respiratory Panel (PCR) Influenzae A [facility] Work Phone: Vital Signs Date Time Vital Sign Value Performing Clinician Facility 09-12-2024 09:46-0400 Body height 157.48 cm Maritza Pedraza MD Work Phone: [facility] 09-12-2024 09:46-0400 Body mass index (BMI) [Ratio] 27.6 kg/m2 Maritza Pedraza MD Work Phone: [facility] 09-12-2024 09:46-0400 Body weight 68.49 kg Maritza Pedraza MD Work Phone: [facility] 09-12-2024 09:46-0400 Diastolic blood pressure 74 mm[Hg] Maritza Pedraza MD Work Phone: [facility] 09-12-2024 09:46-0400 Heart rate 79 /min Maritza Pedraza MD Work Phone: [facility] 09-12-2024 09:46-0400 Respiratory rate 16 /min Maritza Pedraza MD Work Phone: [facility] 09-12-2024 09:46-0400 Systolic blood pressure 113 mm[Hg] Maritza Pedraza MD Work Phone: [facility] 04-11-2024 08:58-0500 Body height 157.48 cm Maritza Pedraza MD Work Phone: [facility] 04-11-2024 08:58-0500 Body mass index (BMI) [Ratio] 28.1 kg/m2 Maritza Pedraza MD Work Phone: [facility] 04-11-2024 08:58-0500 Body weight 69.85 kg Maritza Pedraza MD Work Phone: [facility] 12-13-2022 10:34-0400 Body height 157.[address] Malachi Lowry Work Phone: [facility] 12-13-2022 10:34-0400 Body mass index (BMI) [Ratio] 27.6 kg/m2 Dr. Malachi Lowry Work Phone: [facility] 12-13-2022 10:34-0400 Body weight 68.[address] Malachi Lowry Work Phone: [facility] 12-13-2022 10:34-0400 Diastolic blood pressure 70 mm[Hg] Dr. Malachi Lowry Work Phone: [facility] 12-13-2022 10:34-0400 Heart rate 81 /min Dr. Malachi Lowry Work Phone: [facility] 12-13-2022 10:34-0400 Respiratory rate 16 /min Dr. Malachi Lowry Work Phone: [facility] 12-13-2022 10:34-0400 Systolic blood pressure 124 mm[Hg] Dr. Malachi Lowry Work Phone: [facility] 11-02-2022 10:59-0400 Body height 157.[address] Malachi Lowry Work Phone: [facility] 11-02-2022 10:59-0400 Body mass index (BMI) [Ratio] 27.6 kg/m2 Dr. Malachi Lowry Work Phone: [facility] 11-02-2022 10:59-0400 Body weight 68.[address] Malachi Lowry Work Phone: [facility] 11-02-2022 10:59-0400 Diastolic blood pressure 82 mm[Hg] Dr. Malachi Lowry Work Phone: [facility] 11-02-2022 10:59-0400 Heart rate 79 /min Dr. Malachi Lowry Work Phone: [facility] 11-02-2022 10:59-0400 Respiratory rate 18 /min Dr. Malachi Lowry Work Phone: [facility] 11-02-2022 10:59-0400 SaO2% (BldA) [Mass fraction] 99 % Dr. Malachi Lowry Work Phone: [facility] 11-02-2022 10:59-0400 Systolic blood pressure 125 mm[Hg] Dr. Malachi Lowry Work Phone: [facility] 08-16-2022 08:37-0400 Body height 157.[address] Malachi Lowry Work Phone: [facility] 07-27-2022 11:32-0400 Body mass index (BMI) [Ratio] 27.5 kg/m2 Dr. Malachi Lowry Work Phone: [facility] 07-27-2022 11:32-0400 Body weight 68.[address] Malachi Lowry Work Phone: [facility] 07-27-2022 11:32-0400 Diastolic blood pressure 87 mm[Hg] Dr. Malachi Lowry Work Phone: [facility] 07-27-2022 11:32-0400 Heart rate 90 /min Dr. Malachi Lowry Work Phone: [facility] 07-27-2022 11:32-0400 Respiratory rate 16 /min Dr. Malachi Lowry Work Phone: [facility] 07-27-2022 11:32-0400 Systolic blood pressure 136 mm[Hg] Dr. Malachi oLwry Work Phone: [facility] 06-28-2022 15:54-0400 Body temperature 97.6 [degF] Dr. Malachi Lowry Work Phone: [facility] 06-28-2022 15:54-0400 Diastolic blood pressure 66 mm[Hg] Dr. Malachi Lowry Work Phone: [facility] 06-28-2022 15:54-0400 Heart rate 81 /min Dr. Malachi Lowry Work Phone: [facility] 06-28-2022 15:54-0400 Respiratory rate 16 /min Dr. Malachi Lowry Work Phone: [facility] 06-28-2022 15:54-0400 SaO2% (BldA) [Mass fraction] 95 % Dr. Malachi Lowry Work Phone: [facility] 06-28-2022 15:54-0400 Systolic blood pressure 130 mm[Hg] Dr. Malachi Lowry Work Phone: [facility] 06-28-2022 12:15-0400 Inhaled oxygen flow rate 2 L/min Dr. Malachi Lowry Work Phone: [facility] 06-28-2022 07:50-0400 Body height 158.[address] Malachi Lowry Work Phone: [facility] 06-28-2022 07:50-0400 Body mass index (BMI) [Ratio] 27.1 kg/m2 Dr. Malachi Lowry Work Phone: [facility] 06-28-2022 07:50-0400 Body weight 68.[address] Malachi Lowry Work Phone: [facility] 05-26-2022 08:26-0400 Body height 157.[address] Malachi Lowry Work Phone: [facility] 05-26-2022 08:26-0400 Body mass index (BMI) [Ratio] 27.1 kg/m2 Dr. Malachi Lowry Work Phone: [facility] 05-26-2022 08:26-0400 Body temperature 96.6 [degF] Dr. Malachi Lowry Work Phone: [facility] 05-26-2022 08:26-0400 Body weight 67.[address] Malachi Lowry Work Phone: [facility] 05-26-2022 08:26-0400 Diastolic blood pressure 82 mm[Hg] Dr. Malachi Lowry Work Phone: [facility] 05-26-2022 08:26-0400 Heart rate 83 /min Dr. Malachi Lowry Work Phone: [facility] 05-26-2022 08:26-0400 Respiratory rate 17 /min Dr. Malachi Lowry Work Phone: [facility] 05-26-2022 08:26-0400 SaO2% (BldA) [Mass fraction] 100 % Dr. Malachi Lowry Work Phone: [facility] 05-26-2022 08:26-0400 Systolic blood pressure 149 mm[Hg] Dr. Malachi Lowry Work Phone: [facility] 04-26-2022 22:44-0500 Heart rate 69 /min Dr. Malachi Lowry Work Phone: [facility] 04-26-2022 22:44-0500 Respiratory rate 15 /min Dr. Malachi Lowry Work Phone: [facility] 04-26-2022 22:44-0500 SaO2% (BldA) [Mass fraction] 96 % Dr. Malachi Lowry Work Phone: [facility] 04-26-2022 20:58-0500 Diastolic blood pressure 63 mm[Hg] Dr. Malachi Lowry Work Phone: [facility] 04-26-2022 20:58-0500 Systolic blood pressure 134 mm[Hg] Dr. Malachi Lowry Work Phone: [facility] 04-26-2022 20:37-0500 Body height 157.[address] Malachi Lowry Work Phone: [facility] 04-26-2022 20:37-0500 Body mass index (BMI) [Ratio] 27.8 kg/m2 Dr. Malachi Lowry Work Phone: [facility] 04-26-2022 20:37-0500 Body temperature 98.2 [degF] Dr. Malachi Lowry Work Phone: [facility] 04-26-2022 20:37-0500 Body weight [address] Malachi Lowry Work Phone: [facility] 04-07-2022 10:05-0500 Body height 160.[address] Malachi Lowry Work Phone: [facility] 02-06-2022 10:20-0500 Diastolic blood pressure 75 mm[Hg] Dr. Malachi Lowry Work Phone: [facility] 02-06-2022 10:20-0500 Heart rate 77 /min Dr. Malachi Lowry Work Phone: [facility] 02-06-2022 10:20-0500 Respiratory rate 12 /min Dr. Malachi Lowry Work Phone: [facility] 02-06-2022 10:20-0500 SaO2% (BldA) [Mass fraction] 100 % Dr. Malachi Lowry Work Phone: [facility] 02-06-2022 10:20-0500 Systolic blood pressure 157 mm[Hg] Dr. Malachi Lowry Work Phone: [facility] 02-06-2022 08:16-0500 Body height 160.[address] Malachi Lowry Work Phone: [facility] 02-06-2022 08:16-0500 Body mass index (BMI) [Ratio] 25.8 kg/m2 Dr. Malachi Lowry Work Phone: [facility] 02-06-2022 08:16-0500 Body temperature 98.1 [degF] Dr. Malachi Lowry Work Phone: [facility] 02-06-2022 08:16-0500 Body weight 66.[address] Malachi Lowry Work Phone: [facility] 01-18-2022 12:00-0500 Body height 160.[address] Malachi Lowry Work Phone: [facility] Work Phone: 01-18-2022 12:00-0500 Body mass index (BMI) [Ratio] 26.9 kg/m2 Dr. Malachi Lowry Work Phone: [facility] 01-18-2022 12:00-0500 Body weight 68.[address] Malachi Lowry Work Phone: [facility] 01-18-2022 12:00-0500 Diastolic blood pressure 78 mm[Hg] Dr. Malachi Lowry Work Phone: [facility] 01-18-2022 12:00-0500 Heart rate 74 /min Dr. Malachi Lowry Work Phone: [facility] 01-18-2022 12:00-0500 Respiratory rate 16 /min Dr. Malachi Lowry Work Phone: [facility] 01-18-2022 12:00-0500 Systolic blood pressure 165 mm[Hg] Dr. Malachi Lowry Work Phone: [facility] 02-15-2021 07:59-0500 Body height 160.02 cm [facility] Work Phone: 10-06-2019 11:55-0400 BP Diastolic 98 mm[Hg] [place], [place] 10-06-2019 11:55-0400 BP Systolic 157 mm[Hg] [place] 10-06-2019 10:49-0400 Pulse (Heart Rate) 85 /min [place], [place] 10-06-2019 10:49-0400 Pulse Oximetry 100 % [place], [place] NEGATED: Highlighted [id number] 11:19-0500 Body height [facility] NEGATED: Highlighted [id number] 11:19-0500 Body height 159 cm Clare Carlitoyolascottie [facility] Work Phone: NEGATED: Highlighted [id number] 11:19-0500 Body mass index (BMI) [Ratio] 28.54 kg/m2 Clare Amy [facility] Work Phone: NEGATED: Highlighted [id number] 11:19-0500 Body weight 71.67 kg Clare Carlitocathy [facility] Work Phone: NEGATED: Highlighted [id number] 11:19-0500 Body weight 72 kg Clare Kingscottie [facility] Work Phone: Encounters Encounter Date Encounter Type Care Provider Facility Start: 10[facility]08-20[facility] Start: 09-12-2024 End: 09-12-2024 Patient encounter procedure Gabby HOWELL -[facility] Work Phone: Start: 09-12-2024 End: 09-12-2024 Patient encounter [facility] Start: 09-12-2024 End: 09-12-2024 ambulatory Maritza Pedraza MD Work Phone: -[facility] Start: 08-15-2024 End: 08-15-2024 ambulatory Maritza Pedraza MD Work Phone: -Physical Therapy Start: 08-15-2024 End: 08-15-2024 Discharged Recurring Saw DURÁN -Physical Therapy Work Phone: Start: 08-07-2024 End: 08-07-2024 Unlisted evaluation and management service Keara Choudhury MD, PhD Work Phone: Ophthalmology Comment on above: 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 Daniel Villafana MD -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 Daniel Villafana MD -Outpatient Bone Densitometry Work Phone: Start: 06-04-2024 End: 06-04-2024 ambulatory Maritza Pedraza Facility:[facility] Start: 06-02-2024 End: 06-02-2024 ambulatory Maritza Pedraza MD Work Phone: [facility] Work Phone: Start: 06-02-2024 End: 06-02-[address] Maritza Pedraza MD -Radiology, [place] Work Phone: Start: 06-02-2024 End: 06-02-2024 ambulatory Maritza Pedraza Facility:[facility] Start: 04-14-2024 End: 04-14-[address] Maritza Pedraza MD -Physical Therapy Work Phone: Start: 04-14-[address] Maritza Pedraza MD -Physical Therapy Work Phone: Start: 04-14-2024 End: 04-14-2024 ambulatory Maritza Pedraza MD Work Phone: [facility] Work Phone: Start: 04-11-2024 End: 04-11-[address] 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); Intermediate stage nonexudative age-related macular degeneration of right eye Start: 03-28-2024 End: 03-31-2024 Telephone encounter Kyra Youssef OD Work Phone: Optometry Comment on above: Patient Update Start: 03-24-2024 Encounter for prepro cedural cardiovascular examination Que Mccrary [facility] Start: 03-19-2024 End: 03-19-2024 ambulatory KYRA YOUSSEF II Facility:[facility] Start: 03-19-2024 End: 03-19-2024 Patient encounter procedure Kyra Youssef OD Work Phone: Optometry Comment on above: 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 Renetta Mary DO -Laboratory Work Phone: Start: 03-12-2024 End: 03-12-2024 ambulatory Renetta Mary Facility:[facility] Start: 02-28-2024 End: 02-28-[address] 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 Susu VER[facility] Start: 02-19-2024 End: 02-19-2024 Patient encounter procedure Melodie DURÁN -Cardiovascular Services Work Phone: Start: 02-19-2024 End: 02-19-2024 ambulatory Maritza Pedraza Facility:[facility] Start: 01-09-2024 Encounter for prepro cedural cardiovascular examination Melodie DURÁN [facility] Start: 01-09-2024 End: 01-09-2024 ambulatory Chalon Milo Facility:[facility] [place] Start: 01-03-2024 End: 01-03-2024 ambulatory KERAA CHOUDHURY Facility:[facility] [place] Start: 01-03-2024 End: 01-03-2024 Unlisted evaluation and management service Keara Choudhury MD, PhD Work Phone: Ophthalmology Comment on above: 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); Intermediate stage nonexudative age-related macular degeneration of right eye Start: 12-12-2023 End: 12-12-2023 ambulatory Renetta Lee Facility:[facility] Start: 11-08-2023 End: 11-08-2023 ambulatory MARITZA MILO Facility:[facility] [place] Start: 11-08-2023 End: 11-08-2023 Office outpatient visit 25 minutes Keara Choudhury MD, PhD Work Phone: Ophthalmology Comment on above: 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); Intermediate stage nonexudative age-related macular degeneration of right eye Start: 09-20-2023 End: 09-20-2023 ambulatory MARITZA PEDRAZA Facility:[facility] [place] Start: 09-20-2023 End: 09-20-2023 Unlisted evaluation and management service Keara Choudhury MD, PhD Work Phone: Ophthalmology Comment on above: 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); Intermediate stage nonexudative age-related macular degeneration of right eye Start: 08-09-2023 End: 08-09-2023 ambulatory KEARA CHOUDHURY Facility:[facility] [place] Start: 08-09-2023 End: 08-09-2023 Unlisted evaluation and management service Keara Choudhury MD, PhD Work Phone: Ophthalmology Comment on above: 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); Intermediate stage nonexudative age-related macular degeneration of right eye Start: 07-05-2023 End: 07-05-2023 Unlisted evaluation and management service Keara Choudhury MD, PhD Work Phone: Ophthalmology Comment on above: 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); Intermediate stage nonexudative age-related macular degeneration of right eye Start: 06-21-2023 End: 06-21-2023 ambulatory [facility] Work Phone: Start: 06-21-2023 End: 06-21-2023 Patient encounter procedure [facility] Work Phone: Start: 06-07-2023 End: 06-07-2023 Unlisted evaluation and management service Keara Choudhury MD, PhD Work Phone: Ophthalmology Comment on above: 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); Intermediate stage nonexudative age-related macular degeneration of right eye Start: 05-10-2023 End: 05-10-2023 Office outpatient new 45 minutes Keara Choudhury MD, PhD Work Phone: Ophthalmology Comment on above: 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) (Primary Dx); Intermediate stage nonexudative age-related macular degeneration of right eye Start: 05-07-2023 End: 05-07-2023 Patient encounter procedure Jeanna Youssef OD Work Phone: Optometry Comment on above: Exudative age-relate d macular degeneration of left eye, unspecified stage (HCC) (Primary Dx); Nonexudative age-related macular degeneration, right eye, early dry stage Start: 05-02-2023 End: 05-02-2023 ambulatory [facility] Work Phone: Start: 05-02-2023 End: 05-02-2023 [facility] Start: 03-07-2023 End: 03-07-[address] Malachi Lowry Work Phone: [facility] Work Phone: Start: 03-07-2023 End: 03-07-[address] Malachi Lowry Work Phone: [facility]Laboratory Work Phone: Start: 02-23-2023 End: 02-23-[address] Malachi Lowry Work Phone: [facility] Work Phone: Start: 02-23-2023 End: 02-23-[address] Malachi Lowry Work Phone: [facility]-Physical Therapy Work Phone: Start: 02-23-[address] Malachi Lowry Work Phone: [facility]-Physical Therapy Work Phone: Start: 12-20-2022 End: 12-20-[address] Malachi Lowry Work Phone: [facility] Work Phone: Start: 12-20-2022 End: 12-20-[address] [facility] Low[facility] Start: 12-13-2022 End: 12-13-[address] Malachi Lowry Work Phone: [facility] Work Phone: Start: 12-13-2022 End: 12-13-[address] Malachi Lowry Work Phone: [facility] Work Phone: Start: 11-20-2022 End: 11-20-[address] Malachi Lowry Work Phone: [facility] Work Phone: Start: 11-20-2022 End: 11-20-[address] Malachi Low[facility] Start: 11-02-2022 End: 11-02-[address] Malachi Lowry Work Phone: [facility] Work Phone: Start: 10-11-2022 End: 10-11-[address] Malachi Lowry Work Phone: [facility]Laboratory Work Phone: Start: 09-06-2022 End: 09-06-[address] Malachi Lowry Work Phone: [facility] Work Phone: Start: 09-06-2022 End: 09-06-[address] Malachi Lowry [facility] Start: 08-22-2022 End: 08-22-[address] Malachi Lowry Work Phone: [facility] Work Phone: Start: 08-22-2022 End: 08-22-[address] Malachi Lowry Work Phone: [facility]Laboratory Start: 08-16-2022 End: 08-16-[address] Malachi Lowry Work Phone: [facility] Work Phone: Start: 08-16-2022 End: 08-16-[address] Malachi Lowry Work Phone: [facility]-Outpatient Bone Densitometry Start: 08-07-2022 End: 08-07-[address] Malachi Lowry Work Phone: [facility]-Laboratory Start: 07-27-2022 End: 07-27-[address] Malachi Lowry Work Phone: [facility] Start: 07-24-2022 End: 07-24-[address] Malachi Lowry [facility] Flr Start: 07-20-2022 End: 07-20-[address] Malachi Lowry [facility] Start: 07-11-2022 End: 07-11-[address] Malachi Lowry Work Phone: [facility] Start: 07-11-2022 End: 07-11-[address] Malachi Lowry Work Phone: [facility] Work Phone: Start: 07-11-2022 End: 07-11-[address] Malachi Lowry Work Phone: [facility], y Office 3rd Flr Start: 06-28-2022 Non-patient / Non-visit Dr. Mandel Work Phone: [facility] Start: 06-28-2022 End: 06-28-2022 Admission to same day surgery center Dr. Malachi Lowry [facility] Phone[facility] Start: 06-28-2022 End: 06-28-[address] Malachi Lowry Work Phone: [facility] Work Phone: Start: 06-26-[address] Malachi Lowry [facility] Start: 06-26-[address] Saman Lowry [facility] Flr Start: 06-26-2022 End: 06-26-2022 Non-patient / Non-visit Dr. Malachi Lowry Work Phone: [facility] Start: 06-21-2022 End: 06-21-2022 Patient encounter procedure Kyra Youssef OD Work Phone: Optometry Comment on above: Macular drusen, bila teral (Primary Dx); Nonexudative age-related macular degeneration, bilateral, early dry stage; Pseudophakia, both eyes; Esotropia, alternating, with noncomitancy; Regular astigmatism of both eyes; Myopia, bilateral Start: 06-20-[address] Malachi Lowry Work Phone: [facility]-Physical Therapy Start: 06-15-2022 End: 06-15-[address] Malachi Lowry Work Phone: [facility] Work Phone: Start: 06-15-2022 End: 06-15-[address] Malachi Lowry [facility] 3rd Flr Start: 06-12-2022 End: 06-12-[address] Malachi Lowry Work Phone: [facility]-Outpatient Breast Imaging Start: 06-06-[address] Malachi Lowry Work Phone: [facility]-Physical Therapy Start: 05-30-2022 End: 05-30-[address] Malachi Lowry Work Phone: [facility] Work Phone: Start: 05-30-2022 End: 05-30-[address] Malachi Lowry Work Phone: [facility]-Laboratory Start: 05-26-2022 End: 05-26-[address] Malachi Lowry Work Phone: [facility] Start: 05-15-2022 End: 05-15-[address] Malachi Lowry Work Phone: [facility] Work Phone: Start: 05-15-2022 End: 05-15-[address] Malachi Lowry Work Phone: [facility]-Laboratory, Phy Office 3rd Flr Start: 04-26-2022 End: 04-26-2022 Emergency department patient visit Dr. Malachi Lowry Work Phone: [facility]-Emergency Department Start: 04-25-2022 End: 05-02-[address] Malachi Lowry Work Phone: [facility] Work Phone: Start: 04-25-2022 End: 05-02-[address] Malachi Lowry [facility] Fl[facility] Start: 04-25-[address] Malachi Lowry [facility] Phone[facility] 3[facility] Flr Start: 04-18-2022 End: 04-18-[address] Malachi Lowry Work Phone: [facility] Work Phone: Start: 04-18-2022 End: 04-18-[address] Malachi Lowry [facility] Start: 04-10-2022 End: 04-10-[address] Malachi Lowry Work Phone: [facility] Start: 04-04-2022 End: 04-04-[address] Malachi Lowry [facility] Phone[facility] 3rd Flr Start: 04-03-2022 End: 04-03-[address] Malachi Lowry Work Phone: [facility] Work Phone: Start: 04-03-2022 End: 04-03-[address] Malachi Lowry Work Phone: [facility] Start: 04-03-2022 End: 04-03-[address] Malachi Lowry Work Phone: [facility] Work Phone: Start: 04-03-2022 End: 04-03-[address] Malachi Lowry Work Phone: [facility]-Laboratory, Phy Office 3rd Flr Start: 03-29-2022 End: 03-29-[address] Malachi Lowry Work Phone: [facility] Work Phone: Start: 03-29-2022 End: 03-29-[address] Malachi Lowry Work Phone: [facility]-Radiology, [facility] Start: 03-28-2022 End: 03-28-[address] Malachi Lowry Work Phone: [facility] Work Phone: Start: 03-28-2022 End: 03-28-[address] Malachi Lowry Work Phone: [facility]-Ultrasound, [facility] Start: 03-28-2022 End: 03-28-[address] Malachi Lowry Work Phone: [facility]-Nuclear Medicine, [facility] Start: 03-27-[address] Malachi Lowry Facility:[id number] Start: 03-08-2022 End: 03-08-[address] Malachi Lowry Work Phone: [facility] Work Phone: Start: 03-08-2022 End: 03-08-[address] Malachi Lowry Work Phone: [facility]-Laboratory, Specimen Start: 02-28-2022 End: 03-04-[address] Malachi Lowry Work Phone: [facility] Work Phone: Start: 02-28-2022 End: 03-04-[address] Malachi Lowry Work Phone: [facility]-Laboratory, [facility] Office 3rd Flr Start: 02-20-[address] Saman Lowry Work Phone: [facility]-Laboratory, [facility] Office 3rd Flr Start: 02-16-2022 End: 02-16-[address] Malachi Lowry Work Phone: [facility] Work Phone: Start: 02-16-2022 End: 02-16-[address] Malachi Lowry Work Phone: [facility]-Pulmonary Services/Neurology Start: 02-13-2022 End: 02-13-[address] Malachi Lowry Work Phone: [facility]-Laboratory Start: 02-09-2022 Non-patient / Non-visit Dr. Mandel Work Phone: [facility] Start: 02-09-2022 End: 02-09-[address] Malachi Lowry Work Phone: [facility] Work Phone: Start: 02-09-2022 End: 02-09-[address] Malachi Lowry Work Phone: [facility]-Cardiovascul ar Services Start: 02-06-2022 End: 02-06-[address] Malachi Lowry Work Phone: [facility] Work Phone: Start: 02-06-2022 End: 02-06-[address] Malachi Lowry Work Phone: [facility] Start: 02-03-2022 End: 02-03-[address] Malachi Lowry Work Phone: [facility] Work Phone: Start: 02-03-2022 End: 02-03-[address] Malachi Low[facility] Start: 01-31-2022 End: 01-31-[address] Malachi Lowry Work Phone: [facility] Work Phone: Start: 01-31-2022 End: 01-31-[address] Malachi Lowry Work Phone: [facility], [facility] Office 3rd Sdr Start: 01-23-2022 End: 01-23-[address] Malachi Lowry Work Phone: [facility] Work Phone: Start: 01-23-2022 End: 01-23-[address] Malachi Lowry Work Phone: [facility] Start: 01-18-2022 End: 01-18-[address] Malachi Lowry Work Phone: [facility] Work Phone: Start: 01-18-2022 End: 01-18-[address] Malachi Lowry Work Phone: [facility] Start: 01-18-2022 End: 01-18-[address] Malachi Lowry Work Phone: [facility] Start: 12-05-2021 End: 12-05-2021 ambulatory [facility] Work Phone: Start: 12-05-2021 End: 12-05-2021 Patient encounter procedure [facility] Start: 11-21-2021 End: 11-21-2021 Patient encounter procedure [facility]Cardi[facility] Services Start: 10-13-[address] Floridalma Grant Facility:[id number] Start: 10-13-2021 Patient encounter procedure Gr egory Traceyecht PT Work Phone: [facility] [place] Work Phone: Start: 10-06-[address] Floridalma Grant Facility:[id number] Start: 10-06-2021 [email or web address], Provider : Forest Gar[place], Status: Pen, Time: 10:45 AM Dion Obandoer OCCUPATIONAL PSYCHOLOGIST Work Phone: [facility] [place] Work Phone: Start: 10-04-2021 Patient encounter procedure Bernard weisstree Melgarnessa OCCUPATIONAL PSYCHOLOGIST Work Phone: [facility] [place] Work Phone: Start: 10-04-[address] Malachi Lawton Facility:[id number] Start: 09-26-2021 Patient encounter procedure Gr egory Luecht PT Work Phone: [facility] [place] Work Phone: Start: 09-26-[address] Malachi Lawton Facility:[id number] Start: 09-21-2021 Patient encounter procedure Gr egory Traceyecht PT Work Phone: [facility] [place] Work Phone: Start: 09-21-[address] Malachi Lawton Facility:[id number] Start: 06-01-2021 End: 06-01-2021 Patient encounter procedure [facility]-Outpatient Breast Imaging Start: 04-25-2021 End: 04-25-2021 Pt evaluation Floridalma Grant MD Work Phone: [facility] Work Phone: Start: 02-15-2021 Patient encounter procedure [facility]-Outpatient Bone Densitometry Start: 11-19-2020 Patient encounter procedure Cyndi Park OCCUPATIONAL PSYCHOLOGIST Work Phone: [facility] [place] Work Phone: Start: 11-12-2020 Patient encounter procedure An maribel Walker OCCUPATIONAL PSYCHOLOGIST Work Phone: [facility] [place] Work Phone: Start: 11-05-2020 Patient encounter procedure Ch seema Weller OCCUPATIONAL PSYCHOLOGIST Work Phone: [facility] Work Phone: Start: 11-01-2020 Patient encounter procedure Allyson Weller OCCUPATIONAL PSYCHOLOGIST Work Phone: [facility] Work Phone: Start: 11-01-2020 [email or web address], Provider : Merline Weller, Status: Pen, Time: 10:00 AM Vidhi Trosterud PT Work Phone: [facility] [place] Work Phone: Start: 10-29-2020 Patient encounter procedure De nee Trosterud PT Work Phone: [facility] Work Phone: Start: 10-25-2020 Patient encounter procedure De nee Trosterud PT Work Phone: [facility] [place] Work Phone: Start: 01-19-2020 Patient encounter status [facility] Start: 10-06-2019 End: 10-06-2019 Subsequent hospital visit by physician Abdirahman Toribio Work Phone: [facility] CT Scan Comment on above: Arrived Start: 09-24-2019 End: 09-24-2019 Subsequent hospital visit by physician Abdirahman Toribio Work Phone: [facility] X-Ray Comment on above: Arrived Start: 11-13-2016 End: 02-01-2017 Ambulatory Chyna Hill Facility:[facility] Start: 11-10-2016 End: 11-11-2016 Ambulatory Malachi Lawton Facility:[facility] Start: 10-25-2016 End: 10-26-2016 Ambulatory Demario Chavez Facility:[facility] Procedures Date Procedure Procedure Detail Performing Clinician Start: 08-07-2024 Intravitreal njx pharmacologic agt spx Keara Choudhury MD, PhD Work Phone: Start: 08-07-2024 Computerized ophthal johnson imaging retina Keara Choudhury MD, PhD Work Phone: Start: 07-11-2024 X-ray of cervical spine Maritza Pedraza MD Work Phone: Start: 06-05-2024 Intravitreal njx pharmacologic agt spx Keara Choudhury MD, PhD Work Phone: Start: 06-05-2024 OCT ANGIOGRAPHY OU ( BOTH EYES) Keara Choudhury MD, PhD Work Phone: Start: 06-05-2024 Computerized ophthal johnson imaging retina Keara Choudhury MD, PhD Work Phone: Start: 06-04-2024 MRI of cervical spine C di Pedraza MD Work Phone: Start: 06-04-2024 Dual energy X-ray absorptiometry Maritza Pedraza MD Work Phone: Start: 06-02-2024 Plain x-ray of pelvi s and lower extremity Maritza Pedraza MD Work Phone: Start: 04-10-2024 Intravitreal njx pharmacologic agt spx Keara Choudhury MD, PhD Work Phone: Start: 04-10-2024 Computerized ophthal johnson imaging retina Keara Choudhury MD, PhD Work Phone: Start: 03-12-2024 Assay of phosphorus inorganic Maritza Pedraza MD Work Phone: Start: 03-12-2024 Measurement of renal function Maritza Pedraza MD Work Phone: Comment on above: GFR Calc Start: 02-28-2024 CT of head without contrast Maritza Pedraza MD Work Phone: Start: 02-21-2024 Intravitreal njx pharmacologic agt spx Keara Choudhury MD, PhD Work Phone: Start: 02-21-2024 Computerized ophthal johnson imaging retina Keara Choudhury MD, PhD Work Phone: Start: 02-19-2024 Cardiovascular stres s test using pharmacologic stress agent Maritza Pedraza MD Work Phone: Start: 01-03-2024 Intravitreal njx pharmacologic agt spx Keara Choudhury MD, PhD Work Phone: Start: 01-03-2024 Computerized ophthal johnson imaging retina Keara Choudhury MD, PhD Work Phone: Start: 11-08-2023 Intravitreal njx pharmacologic agt spx Keara Choudhury MD, PhD Work Phone: Start: 11-08-2023 Computerized ophthal johnson imaging retina Keara Choudhury MD, PhD Work Phone: Start: 09-20-2023 Intravitreal njx pharmacologic agt spx Keara Choudhury MD, PhD Work Phone: Start: 09-20-2023 Computerized ophthal johnson imaging retina Keara Choudhury MD, PhD Work Phone: Start: 08-09-2023 Intravitreal njx pharmacologic agt spx Keara Choudhury MD, PhD Work Phone: Start: 08-09-2023 Computerized ophthal johnson imaging retina Keara Choudhury MD, PhD Work Phone: Start: 07-05-2023 Intravitreal njx pharmacologic agt spx Keara Choudhury MD, PhD Work Phone: Start: 07-05-2023 Computerized ophthal johnson imaging retina Keara Choudhury MD, PhD Work Phone: Start: 06-07-2023 Intravitreal njx pharmacologic agt spx Keara Choudhury MD, PhD Work Phone: Start: 06-07-2023 Computerized ophthal johnson imaging retina Keara Choudhury MD, PhD Work Phone: Start: 05-10-2023 Intravitreal njx pharmacologic agt spx Keara Choudhury MD, PhD Work Phone: Start: 05-10-2023 Computerized ophthal johnson imaging retina Keara Choudhury MD, PhD Work Phone: Start: 08-16-2022 Dual energy X-ray absorptiometry Dr. Malachi Lowry Work Phone: Start: 06-28-[address] Malachi Lowry Work Phone: Start: 06-28-2022 Total cholecystectom y and exploration of common bile duct Dr. Malachi Lowry Work Phone: Start: 06-28-2022 Fluoroscopic guidance Sonya Lowry Work Phone: Start: 06-21-2022 Computerized ophthal johnson imaging retina Kyra Youssef OD Work Phone: Start: 06-12-2022 Screening mammography Sonya Lowry Work Phone: Start: 04-26-2022 CT of lumbar spine Dr. Malachi Lowry Work Phone: Start: 04-03-2022 MRI of thoracic spine Sonya Lowry Work Phone: Start: 03-29-2022 X-ray of chest posteroanterior view Dr. Malachi Lowry Work Phone: Start: 03-29-2022 Radiography of thora cic spine Dr. Malachi Lowry Work Phone: Start: 03-28-[address] Mandel Work Phone: Start: 03-28-2022 Plain chest X-ray Dr. Sonya Lowry Work Phone: Start: 03-28-2022 Pulmonary ventilatio n perfusion study Dr. Malachi Lowry Work Phone: Start: 02-16-2022 Plain chest X-ray Dr. Sonya Lowry Work Phone: Start: 02-09-2022 Cardiovascular stres s test using pharmacologic stress agent Dr. Malachi Lowry Work Phone: Start: 02-06-2022 Biopsy/Inj or Needle Placement Dr. Malachi Lowry Work Phone: Start: 11-21-2021 Ultrasonography of abdomen Start: 06-01-2021 Screening mammography Start: 04-25-2021 End: 04-25-2021 BP scrn no [...] procedure Floridalma Grant MD Work Phone: Start: 02-15-2021 Dual energy X-ray absorptiometry Start: 10-06-2019 CT INJ EPIDUR LUMB/S AC 1 LEV LT Abdirahman Toribio Work Phone: Start: 09-24-2019 Arthrocentesis aspir &/inj major jt/bursa w/o us Abdirahman Toribio Work Phone: Respiratory Panel (PCR) Dr. Malachi Lowry Work Phone: Respiratory Panel (PCR) Dr. Malachi Lowry Work Phone: Urine culture Dr. Malachi cain Work Phone: Urine culture Dr. Malachi cain Work Phone: NEGATED: Highlighted rowStart: 04-25-2021 End: 04-25-2021 Documentation of current medications Clare Reyes LPN Plan of Treatment Date Care Activity Detail Author Start: 02-21-2028 DTaP/Tdap/Td vaccine (2 - Td) DTaP/Tdap/Td vaccine (2 - Td) [place] Start: 02-21-2028 Urine microalbumin profile DTaP,Tdap,Td Vaccine (2 - Td or Tdap) [facility] Start: 08-22-2025 End: 01-29-2026 OCT MACULA CIRRUS OU (BOTH EYES) OCT MACULA CIRRUS OU (BOTH EYES) [facility] Routine Exudative age-related macular degeneration of left eye with active choroidal neovascularization (HCC) Expected: 08/22/2025, Expires: 01/29/2026 [facility] Work Phone: Comment on above: Expected: 08/22/2025, Expires: Start: 06-20-2025 End: 11-27-2025 OCT MACULA CIRRUS OU (BOTH EYES) OCT MACULA CIRRUS OU (BOTH EYES) [facility] Routine 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 Expected: 06/20/2025, Expires: 11/27/2025 [facility] Work Phone: Comment on above: Expected: 06/20/2025, Expires: Start: 04-25-2025 End: 10-02-2025 OCT ANGIOGRAPHY OU (BOTH EYES) OCT ANGIOGRAPHY OU (BOTH EYES) [facility] Routine 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 Expected: 04/25/2025, Expires: 10/02/2025 [facility] Comment on above: Expected: 04/25/2025, Expires: Start: 04-25-2025 End: 10-02-2025 OCT MACULA CIRRUS OU (BOTH EYES) OCT MACULA CIRRUS OU (BOTH EYES) [facility] Routine 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 Expected: 04/25/2025, Expires: 10/02/2025 [facility] Work Phone: Comment on above: Expected: 04/25/2025, Expires: Start: 03-25-2025 End: 03-25-2025 Patient encounter procedure 03/25/2025 10:00 AM EST Office Visit [facility] [address] [place] [address] Kyra Youssef II, OD [address] [place] [address] Eye exam/[facility] Comment on above: [facility] Start: 03-07-2025 End: 08-14-2025 OCT MACULA CIRRUS OU (BOTH EYES) OCT MACULA CIRRUS OU (BOTH EYES) [facility] Routine 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 Expected: 03/07/2025, Expires: 08/14/2025 [facility] Work Phone: Comment on above: Expected: 03/07/2025, Expires: Start: 01-17-2025 End: 06-26-2025 OCT MACULA CIRRUS OU (BOTH EYES) OCT MACULA CIRRUS OU (BOTH EYES) [facility] Routine 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 Expected: 01/17/2025, Expires: 06/26/2025 [facility] Work Phone: Comment on above: Expected: 01/17/2025, Expires: Start: 11-22-2024 End: 05-01-2025 OCT MACULA CIRRUS OU (BOTH EYES) OCT MACULA CIRRUS OU (BOTH EYES) [facility] Routine 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 Ophthalmology Comment on above: 9 weeks (around 10/09/2024) for STI vabysm o OS/ OCT. 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 Ophthalmology Comment on above: *9 weeks (around 08/07/2024) for STI vabys mo OS/ OCT. Start: 07-19-2024 End: 12-26-2024 OCT MACULA CIRRUS OU (BOTH EYES) OCT MACULA CIRRUS OU (BOTH EYES) [facility] Routine 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 Expected: 07/19/2024, Expires: 12/26/2024 [facility] Work Phone: Comment on above: Expected: 07/19/2024, Expires: Start: 06-21-2024 End: 11-28-2024 OCT MACULA CIRRUS OU (BOTH EYES) OCT MACULA CIRRUS OU (BOTH EYES) [facility] Routine 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 Expected: 06/21/2024, Expires: 11/28/2024 [facility] Work Phone: Comment on above: Expected: 06/21/2024, Expires: Start: 06-05-2024 End: 06-05-2024 Patient encounter procedure 06/05/2024 10:15 AM EDT Office Visit [facility] [address] [place] [address] Keara Choudhury MD, PhD [address] [place] [address] *DFE/OCT/OCTa both eyes ? vabysmo. auth pending Ophthalmology Comment on above: *DFE/OCT/OCTa both eyes ? vabysmo. auth pending Start: 06-04-2024 MR Cervical spine [facility] Start: 06-04-2024 MRI of cervical spine Spine Cervical (Routine) [facility] Start: 06-04-2024 Dual energy X-ray absorptiometry Dexa Bone Density Study [facility] Start: 06-04-2024 DXA Bone [Mass/Area] Bone density [facility] Start: 05-24-2024 End: 10-31-2024 OCT MACULA CIRRUS OU (BOTH EYES) OCT MACULA CIRRUS OU (BOTH EYES) [facility] Routine 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 Expected: 05/24/2024, Expires: 10/31/2024 [facility] Work Phone: Comment on above: Expected: 05/24/2024, Expires: Start: 04-10-2024 End: 04-10-2024 Patient encounter procedure Ophthalmolog y Comment on above: STI eylea OS/ OCT *STI eylea OS/ OCT Start: 03-05-2024 Advance Directive Discussion Advance Directive Discussion [facility] Start: 02-21-2024 End: 02-21-2024 Patient encounter procedure 02/21/2024 8:00 AM EST Office Visit [facility] [address] [place] [address] Keara Choudhury MD, PhD [address] [place] [address] *7 weeks (around 02/21/2024) for STI eylea OS/ OCT. Ophthalmology Comment on above: *7 weeks (around 02/21/2024) for STI eyl ea OS/ OCT. Start: 01-03-2024 End: 01-03-2024 Patient encounter procedure 01/03/2024 8:30 AM EDT Office Visit [facility] [address] [place] [address] Keara Choudhury MD, PhD [address] [place] [address] STI eylea OS/ OCT. Ophthalmology Comment on above: STI eylea OS/ OCT. Start: 11-08-2023 End: 11-08-2023 Patient encounter procedure 11/08/2023 1:45 PM EDT Office Visit [facility] [address] [place] [address] Keara Choudhury MD, PhD [address] [place] [address] Return in about 7 weeks (around 11/08/2023) for DFE/ OCT both eyes ? eylea. Ophthalmology Comment on above: Return in about 7 weeks (around 11/08/2023 ) for DFE/ OCT both eyes ? eylea. Start: 11-04-2023 Covid-19 Vaccine () Covid-19 Vaccine () [facility] Start: 11-04-2023 Covid-19 Vaccine () Covid-19 Vaccine () [facility] Start: 11-04-2023 Influenza vaccination Influenza Vaccine (#1) [facility] Start: 09-20-2023 End: 09-20-2023 Patient encounter procedure 09/20/2023 1:30 PM EDT Office Visit [facility] [address] [place] [address] Keara Choudhury MD, PhD [address] [place] [address] STI eylea OS/ OCT Ophthalmology Comment on above: STI eylea OS/ OCT Start: 08-09-2023 End: 08-09-2023 Patient encounter procedure 08/09/2023 3:00 PM EDT Office Visit [facility] [address] [place] [address] Keara Choudhury MD, PhD [address] [place] [address] STI avastin OS/ OCT Ophthalmology Comment on above: STI avastin OS/ OCT Start: 03-05-2023 Advance Directive Discussion Advance Directive Discussion [facility] Start: 03-05-2023 Behavioral Health Screening Behavioral Health Screening [facility] Start: 03-05-2023 Depression Assessment Depression Assessment [facility] Start: 11-03-2022 Covid-19 Vaccine () Covid-19 Vaccine () [facility] Start: 06-28-2022 Anes intraperitoneal upper abdomen w/laps nos ANESTH SURG UPPER ABDOMEN [facility] Start: 06-28-2022 Laps surg cholecystectomy w/cholangiography LAPARO CHOLECYSTECTOMY/GRAPH [facility] Start: 06-28-2022 Cholangiogram Cholangiogram/ O R,Initial [facility] Start: 06-28-2022 XR Biliary ducts and Gallbladder Views W contrast IV [facility] Start: 06-28-2022 Patient discharge [facility] Start: 04-10-2022 Patient referral [facility] Work Phone: Start: 03-05-2022 ADVANCE DIRECTIVE DISCUSSION ADVANCE DIRECTIVE DISCUSSION [facility] Start: 03-05-2022 DEPRESSION ASSESSMENT DEPRESSION ASSESSMENT [facility] Start: 02-16-2022 [facility] Work Phone: Start: 02-13-2022 [facility] Work Phone: Start: 02-06-2022 Renal biopsy prq trocar/needle RENAL BIOPSY PERQ [facility] Start: 02-06-2022 Catheterization of vein [facility] Start: 02-06-2022 Oxygen therapy [facility] Start: 02-06-2022 Patient discharge [facility] Start: 02-06-2022 Vital signs measurements [facility] Start: 10-13-2021 [email or web address], Provider: Forest Garland, Status: Pen, Time: 11:15 AM [email or web address], Provider: Forest Garland, Status: Pen, Time: 11:15 AM [facility] Work Phone: Start: 10-06-2021 COVID-19 VACCINE (5 - Booster for Moderna series) COVID-19 VACCINE (5 - Booster for Moderna series) [facility] Start: 10-06-2021 [email or web address], Provider: Forest Garland, Status: Pen, Time: 10:45 AM [email or web address], Provider: Forest Garland, Status: Pen, Time: 10:45 AM Rehab [facility] Work Phone: Start: 10-04-2021 [email or web address], Provider: Dion Urbina, Status: Pen, Time: 9:15 AM PTFUADULT4, Provider: Dion Urbina, Status: Pen, Time: 9:15 [facility] Work Phone: Start: 04-25-2021 End: 04-25-2021 Patient encounter procedure Appointment [facility] Work Phone: Start: 12-03-2020 PTRMARJORIE, Provider: Vidhi Barker, Status: Pen, Time: 9:15 AM PTRECHECKA, Provider: Vidhi Barker, Status: Pen, Time: 9:15 AM [facility] Work Phone: Start: 11-26-2020 [email or web address], Provider: Bing Park, Status: Pen, Time: 9:15 AM PTFUADULT4, Provider: Bing Park, Status: Pen, Time: 9:15 AM [facility] Work Phone: Start: 11-19-2020 [email or web address], Provider: Bing Park, Status: Pen, Time: 9:15 AM PTFUADULT4, Provider: Bing Park, Status: Pen, Time: 9:15 AM [facility] Start: 11-12-2020 [email or web address], Provider: Bing Park, Status: Pen, Time: 9:15 AM PTFUADULT4, Provider: Bing Park, Status: Pen, Time: 9:15 AM [facility] Work Phone: Start: 11-05-2020 [email or web address], Provider: Merline Weller, Status: Pen, Time: 9:15 AM PTFUADULT4, Provider: Merline Weller, Status: Pen, Time: 9:15 AM [facility] Work Phone: Start: 11-01-2020 [email or web address], Provider: Merline Weller, Status: Pen, Time: 10:00 AM PTFUADULT4, Provider: Merline Weller, Status: Pen, Time: 10:00 AM [facility] Work Phone: Start: 10-29-2020 [email or web address], Provider: Vidhi Barker, Status: Pen, Time: 10:30 AM PTFUADULT4, Provider: Vidhi Barker, Status: Pen, Time: 10:30 AM [facility] Work Phone: Start: 11-04-2019 Influenza vaccination Flu vaccine (#1) [place], [place] Start: 08-09-2017 Pneumococcal Vaccine: 50+ (2 of 2 - PPSV23) Pneumococcal Vaccine: 50+ (2 of 2 - PPSV23) [facility] Start: 08-09-2017 Pneumococcal Vaccine: 65+ (2 of 2 - PPSV23 or PCV20) Pneumococcal Vaccine: 65+ (2 of 2 - PPSV23 or PCV20) [facility] Start: 10-14-2014 Shingles Vaccine (2 of 3) Shingles Vaccine (2 of 3) [place] Start: 10-14-2014 Shingrix Vaccine (2 of 3) Shingrix Vaccine (2 of 3) [facility] Start: 2014 BONE DENSITY BONE DENSITY [facility] Start: 2014 Pneumococcal 65+ years Vaccine (1 of 1 - PPSV23) Pneumococcal 65+ years Vaccine (1 of 1 - PPSV23) [place] Start: 2014 Pneumococcal 65+ years Vaccine (2 of 2 - PPSV23) Pneumococcal 65+ years Vaccine (2 of 2 - PPSV23) [place] Start: 2014 PNEUMOCOCCAL: 65+ (1 - PCV) PNEUMOCOCCAL: 65+ (1 - PCV) [facility] Start: 2014 Screening for osteoporosis Bone Density Screening [facility] Start: 2004 Screening for osteoporosis DEXA (modify frequency per FRAX score) [place], [place] Start: 09-15-1999 Screening for malignant neoplasm of breast Breast cancer screen [place] Start: 09-15-1999 Screening for malignant neoplasm of colon Colon cancer screen colonoscopy [place] Start: 09-15-1999 Shingles Vaccine (1 of 2) [facility]les Vaccine ([facility] of 2) [facility] [place] [place] Start: 09-15-1999 SHINGRIX VACCINE (1 of 2) SHINGRIX VACCINE (1 of 2) [facility] Start: 1994 COLOGUARD (FIT-DNA) COLOGUARD (FIT-DNA) [facility] Start: 1994 Colonoscopy COLONOSCOPY [facility] Start: 1994 COLORECTAL CANCER SCREENING COLORECTAL CANCER SCREENING [facility] Start: [address] COLONOGRAPHY [facility] Start: 1994 DIABETES SCREEN DIABETES SCREEN [facility] Start: 1994 Diabetes Screening Diabetes Screening [facility] Start: 1994 FECAL OCCULT BLOOD FECAL OCCULT BLOOD [facility] Start: 1994 Lipid panel Lipid Screening [facility] Start: 1994 LIPID SCREEN LIPID SCREEN [facility] Start: 1994 Screening for malignant neoplasm of colon [facility] Start: 1994 SIGMOIDOSCOPY SIGMOIDOSCOPY [facility] Start: 1989 Lipid panel Lipid screen [place], [place] Start: 1989 Mammography MAMMOGRAM [facility] Start: 1989 Screening for malignant neoplasm of breast Mammogram Screening [facility] Start: 1968 DTaP/Tdap/Td vaccine (1 - Tdap) DTaP/Tdap/Td vaccine (1 - Tdap) [place], [place] Start: 1968 Urine microalbumin profile DTAP,TDAP,TD (1 - Tdap) [facility] Start: 09-15-1967 Anxiety Screening Anxiety Screening [facility] Start: 09-15-1967 Depression Screening Depression Screening [facility] Start: 09-15-1967 HEPATITIS C SCREENING HEPATITIS C SCREENING [facility] Start: 09-15-1967 Hepatitis C screening Hepatitis C Screening [facility] Start: 1949 Creatinine measurement Creatinine monitoring [facility] [place] Start: 1949 Hepatitis C screening Hepatitis C screen [place], [place] Start: 1949 Potassium monitoring Potassium monitoring [place], [place] Cardiac event recording [facility] Electrocardiographic procedure [facility] Neutrophil cytoplasm ic Ab.classic [Units/volume] in Serum [facility] Work Phone: Nuclear Ab [Presence ] in Serum [facility] Work Phone: P-ANCA measurement [facility] Work Phone: Patient Education [facility] Work Phone: Patient referral [facility] Work Phone: Radionuclide imaging of perfusion of myocardium under exercise stress [facility] Work Phone: Respiratory Panel (PCR) Respiratory Panel (PCR) [facility] Work Phone: Respiratory pathogen s DNA and RNA 12b panel - Unspecified specimen by MONA with probe detection [facility] Work Phone: [place] [facility] Work Phone: [facility] Immunizations Immunization Date Immunization Notes Care Provider Agustin florentino 01-02-2023 influenza virus vaccine, unspecified formulation Keara Choudhury MD, PhD Work Phone: [facility] 02-20-2018 tetanus toxoid, redu cherry diphtheria toxoid, and acellular pertussis vaccine, adsorbed [facility] Payers Date Payer Category Payer Self-pay [id number] 2022 Unknown [id number] 2015 Medicare (Managed Care) [facility] H[facility] [id number] 2015 Unknown 2015 Medicare [id number] 1949 Unknown [id number] [id number]. 1068 1949 Unknown [id number] 2.16840.1.377120.3.579.2. 1068 1949 Unknown [id number] 2.16840.1.590519.3.579.2. 1068 1949 Unknown [id number] 2.16840.1.499124.3.579.2. 1068 1949 Unknown [id number] 2.16.840.1.522340.3.579.2. 1068 1949 Unknown [id number] 2.16.840.1.399342.3.579.2. 1069 Unknown [id number] 2.16.840.1.352610.3.579.2. 462 Unknown [id number] 2.16.840.1.866448.3.579.2. 462 Unknown [id number] 2.16.840.1.976388.3.579.2. 462 Unknown [id number] 2.16.840.1.567960.3.579.2. 462 Unknown [id number] 2.16.840.1.131626.3.579.2. 462 Unknown [id number] 2.16.840.1.674098.3.579.2. 462 Unknown [id number] 2.16.840.1.437628.3.579.2. 462 Unknown [id number] 2.16.840.1.075822.3.579.2. 462 Unknown [id number] 2.16.840.1.224597.3.579.2. 462 Unknown [id number] 2.16.840.1.999416.3.579.2. 462 Unknown [id number] 2.16.840.1.832313.3.579.2. 462 Unknown [id number] 2.16.840.1.962530.3.579.2. 462 Unknown [id number] 2.16.840.1.165904.3.579.2. 462 Unknown [id number] 2.16.840.1.183991.3.579.2. 462 Unknown [id number] 2.840.1.753507.3.579.2. 462 Social History Date Type Detail Facility Tobacco smoking status DCIS Unknown if ever smoked [place], [place] Start: 1950 Sex Assigned At Not on file M [place], [place] Start: 10-06-2019 End: 12-13-2022 Tobacco smoking status DCIS Unknown if ever smoked [facility] [place] Start: 12-02-2018 Non-smoker [facility] Start: 1950 Sex Assigned At Female W [facility] Start: 06-21-2022 End: 12-13-2022 Tobacco smoking status NHIS Ex-smoker [facility] Start: 05-02-1962 End: 01-09-1993 History of tobacco use Current smoker [facility] Start: 05-02-1962 End: 01-09-1993 History of tobacco use Cigarette Smoker [facility] Start: 06-21-2022 End: 05-10-2023 Tobacco use and exposure Smokeless tobacco non-user [facility] Start: 06-21-2022 End: 08-07-2024 Alcohol intake Current drinker of alcohol (finding) [facility] Start: 02-13-2019 [facility] Start: 06-21-2022 End: 03-19-2024 History of Social function [facility] Start: 06-21-2022 End: 03-19-2024 Tobacco use panel [facility] Adult Depression Screening Assessment 0 [facility] Start: 06-04-2024 End: 06-10-2024 Sex Female (finding) [facility] NEGATED: Highlighted row [facility] Medical Equipment Procedure Code Equipment Code Equipment Origin al Text Equipment Identifier Dates Total cholecystectomy with exploration of common bile duct Plant polysaccharide haemostatic agent, bioabsorbable [id number] FDA Start: 06-28-2022 Total cholecystectomy with exploration of common bile duct Ligation clip, synthetic polymer, non-bioabsorbable [id number] FDA Start: 06-28-2022 Total cholecystectomy with exploration of common bile duct Ligation clip, synthetic polymer, non-bioabsorbable ()[id number] FDA Start: 06-28-2022 Goals Date Patient Goal Desired Activity /State Functional Status Date Assessment Result Facility 06-28-2022 Functional status Ambulates [facility] Work Phone: Mental Status Date Assessment Result Facility 06-28-2022 Cognitive function Voice/Name [facility] Work Phone: 02-06-2022 Cognitive function Voice/Name [facility] Work Phone: Clinical Notes 04-26-2022 to 08-25-2024 Note Date & Type Note Facility 08-25-2024 Discharge summary Note Date/Time August 25, 2024 11:45am [facility] Physical Therapy [facility] [address] [place] [address] [address] [place] [address] / REHABILITATION SERVICES DISCHARGE SUMMARY MR#: [id number] Acct: [id number] Name: IVONNE MAYA Rep #: [id number] : 1950 73 From: Jaclyn Arreaga Referring DrSaman: LEEANNA Romero Status: REG RCR Insurance: [employer]URANCE Patient Information Patient Information: IVONNE MAYA was seen in my office for initial evaluation on 07/30/24. The following Plan of Care was established for this patient: POC Established Initial Frequency: 2x /Week Initial Duration: 4 Weeks Anticipated Interventions Patient/Client Instruction: Educate patient on: Benefits of Fitness Program Therapeutic Exercise to Include: Strength training, Endurance training, Balance training, Coordination, Body mechanics, Postural training, Flexibilty training, Gait and locomotor training, Neuromotor development, In an aquatic setting, Passive ROM, Active ROM, Dynamic Lumbar Stabilization and Scapular Strength/Stabilization For the Purpose of:: To improve muscle performance and motor function Functional Training to Include: Gait training Last Seen Last Seen: This patient was last seen in our office . Pertinent comments regarding their Physical therapy will appear below: Pt is having a total hip replacement and is appropriate to be d/c at this time. At this point I will be discontinuing this patient from physical therapy. I would be happy to see this patient again in the future if found appropriate by the physician. Thank you! Jaclyn Trevino, SANTI Balance/Gait/Functional tests Balance/Special Test Scores Lower Extremity Functional Score: 24 <Electronically signed by Jaclyn Trevino DPT> 08/25/24 1145 CC: Dr. Maritza Pedraza MD; LEEANNA Romero ~ ELR Signed [facility] Work Phone: [phone]) 639-189406-23-2025 Discharge summary [facility] Physical Therapy [address] [address] [place] [id number] / REHABILITATION SERVICES DISCHARGE SUMMARY MR#: [id number] Acct: [id number] Name: IVONNE MAYA Rep #: [id number] 28 : 1950 73 From: Jaclyn Arreaga Referring DrSaman: LEEANNA Romero Status: REG RCR Insurance: [employer] S[employer] PAY INSURANCE Patient Information Patient Information: IVONNE MAYA was seen in my office for initial evaluation on 07/30/24. The following Plan of Care was established for this patient: POC Established Initial Frequency: 2x /Week Initial Duration: 4 Weeks Anticipated Interventions Patient/Client Instruction: Educate patient on: Benefits of Fitness Program Therapeutic Exercise to Include: Strength training, Endurance training, Balance training, Coordination, Body mechanics, Postural training, Flexibilty training, Gait and locomotor training, Neuromotordevelopment, In an aquatic setting, Passive ROM, Active ROM, Dynamic Lumbar Stabilization and Scapular Strength/Stabilization For the Purpose of:: To improve muscle performance and motor function Functional Training to Include: Gait training Last Seen Last Seen: This patient was last seen in our office . Pertinent comments regarding their Physical therapy willappear below: Pt is having a total hip replacement and is appropriate to be d/c at this time. At this point I will be discontinuing this patient from physical therapy. I would be happy to see this patient again in the future if found appropriate by the physician. Thank you! Jaclyn Trevino, DPT Balance/Gait/Functional tests Balance/Special Test Scores Lower Extremity Functional Score: 24 08/25/24 1145 CC: Dr. Maritza Pedraza MD; LEEANNA Romero ~ ELR Signed [facility]06-05-2025 NoteDate of Procedure 08/07/2024 [place] Protocol Safety Checklist A moment of CARE was completed Sign In Sign in communication not applicable due to emergent procedure. Personnel directly involved with the procedure wore the appropriate PEE. Special Equipment: yes. Patient/surrogate stated/verified patient name, date of , relevant allergies, intended procedure. Provider Confirms: Relevant labs, photos, and/or imaging studies have been reviewed. Intended patient and procedure match the source document(s) (e.g. consent, associated studies [imaging, pathology]). Consent obtained and matches the intended procedure. Correct side/site marked and visible. Medications required for procedure verified. Fire risk assessed and interventions discussed: N/A. Correct implant(s) confirmed including size and side, expiration date(s) reviewed. Sign Out All specimens are correctly labeled and sent: N/A. All instruments, equipment, possible retained foreign bodies accounted for. Post-procedure POC communicated to patient or surrogate. Post-procedure POC communicated to patient's multidisciplinary team. Anesthesia 0.5 mL subconjunctival injection of 2% Lidocaine, 1-2 drops Topical 0.5% Proparacaine. Prep 5% Betadine. Injection Administration Medication: 6 mg faricimab-svoa 6 mg/0.05 mL Route: INTRAVITREAL, Site: Left Balance Wasted Residual medication less than 1 unit was discarded. Anterior Chamber Paracentesis No. Post Injection Evaluation Patient has at least hand motion vision. Post Procedure Medications None. Home Going Prescription None.[facility]06-05-2025 Instructions* Patient Instructions* Keara Choudhury MD, PhD - 08/07/2024 10:04 AM EDT Post Injection Patient Information You had eye injection(s) today. These are your after injection instructions. Today: Preservative free artificial tears 1 drop every hour while awake as needed Tomorrow: Preservative free artificial tears 1 drop every 2 hours while awake as needed Care instructions after eye injections: Do not rub or touch your eye other than dabbing lightly with a tissue An pyxw-vky-aeatmwg pain reliever (i.e. Tylenol) can be used for mild soreness Use artificial tears/lubricating drops once an hour as needed for comfort (chill the tears in the refrigerator for more comfort). If you are using the tears more than 4 times a day they need to be the preservative free kind Warm or cool compresses are okay It is okay to shower and wash your face. No swimming pools or saunas for 24 hours COMMON symptoms after successful eye injections: Mild to moderate pain or irritation beginning the day of the injection. This should begin to improve the following day. Eyelash in the eye or lyric/gritty sensation Tearing Mild floaters or bubbles in your vision - usually resolves after 1-2 days Bloody tears for 1-2 days after treatment Eye Redness Also known as subconjunctival hemorrhage This bruise can cover the entire white part of the eye and may last a few weeks CONCERNING symptoms after eye injections: Severe, constant pain Worsening pain after the first day Decreased vision Severe, constant floaters Curtain or veil in your vision New eye redness that was not there after the injection and covers the whole eye Please call the office immediately for any of the above listed concerning symptoms or with any other questions. If it is after hours please call [phone] which will give instructions on how to reach the eye doctor medical consultant documented in [facility] encounterGreen [facility]06-[facility] NoteDate of Procedure 08/07/2024. 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 OCT Macula Interpretation Right Eye Normal foveal contour. Findings include Drusen. Left Eye Normal foveal contour. Findings include Intraretinal fluid, Drusen, RPE Irregularity.[id number] NoteHNO ID: [id number] Author: KEARA CHOUDHURY MD, PhD Service: ? Author Type: Physician Type: Progress Notes Filed: 08/07/2024 10:04 Note Text: Referred by Dr. Gibson Youssef for Age related macular degeneration eval 1. 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 Posterior vitreous detachment (PVD) right eye Retinal detachment precautions reviewed 4. Posterior chamber intraocular lens (PCIOL) both eyes -stable Plan: Start eylea 09/20/23 - ok up to 8w Start vabysmo 06/05/24 S/p vabysmo #1 9w ago with trace IRF Rec vabysmo #2 left eye today Return in 8-9 weeks for sti Full exam in December I have confirmed and edited as necessary the relevant HPI, ophthalmic history, ROS, and the neuro exam findings as obtained by others. I have seen and examined Ivonne Maya. I have discussed the case and the management of this patient's care with the Resident/Fellow, if applicable. I also have reviewed and agree with the assessment and plan as stated above and agree with all of its relevant components. Keara Choudhury [facility]06-05-2025 History of Present illness Narrative* Keara Choudhury MD, PhD - 08/07/2024 9:34 AM EDT Referred by Dr. Gibson Youssef for Age related macular degeneration eval 1. 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 Posterior vitreous detachment (PVD) right eye Retinal detachment precautions reviewed 4. Posterior chamber intraocular lens (PCIOL) both eyes -stable Plan: Start eylea 09/20/23 - ok up to 8w Start vabysmo 06/05/24 S/p vabysmo #1 9w ago with trace IRF Rec vabysmo #2 left eye today Return in 8-9 weeks for sti Full exam in December I have confirmed and edited as necessary the relevant HPI, ophthalmic history, ROS, and the neuro exam findings as obtained by others. I have seen and examined Ivonne Maya. I have discussed the case and the management of this patient's care with the Resident/Fellow, if applicable. I also have reviewed and agree with the assessment and plan as stated above and agree withall of its relevant components. Keara Choudhury MD documented in this encounterGreen [facility]05-09-[facility]25 Evaluation note* Diagnosis Onset Date Resolution Status Admit Date Cervical myelopathy acute July 112024 8:36am Osteopenia determined by x-ray acute July 11, 2024 8:36am Right hip pain acute July 11, 2 025 8:36am Spinal stenosis of lumbar re gion with neurogenic claudication acute July 11, 2024 8:36am [facility] Work Phone: 1(225) 215-826405-09-2025 Evaluation note* Diagnosis Onset Date Resolution Status Admit Date Cervical myelopathy acute July 112024 8:36am Osteopenia determined by x-ray acute July 11, 2024 8:36am Right hip pain acute July 11, 2 025 8:36am Spinal stenosis of lumbar re gion with neurogenic claudication acute July 11, 2024 8:36am Cerebellar infarct acute September 022024 9:28am Dyspnea on exertion acute September 12, 2024 9:28am Preop cardiovascular exam acute September 12, 2024 9:28am Essential hypertension chronic Ju 2024 9:28am [facility] Work Phone: 1(189) 711-796804-22-2025 Discharge summary Author Varsha Dhaliwal [facility] Note Date/Time June 24, 2024 8:2 3am [facility] Physical Therapy [facility] [address] [place] [address] / REHABILITATION SERVICES DISCHARGE SUMMARY MR#: [id number] Acct: [id number] Name: IVONNE MAYA Rep #: [id number] 01 : 1950 73 From: Varsha Dhaliwal MP T Referring Dr.: Dr. Maritza Pedraza MD Status: REG R Insurance: [employer] PAY INSURANCE Patient Information Patient Information: IVONNE MAYA was seen in my office for initial evaluation on 04/14/24. The following Plan of Care was established for this patient: POC Established Initial Frequency: 2x /Week Initial Duration: 2 Months Anticipated Interventions Patient/Client Instruction: Educate patient on: Condition and Plan of Care For the Purpose of:: To improve nutrient delivery to tissue, To improve muscle performance and motor function, To improve ability to perform ADL's, To increasetolerance to activity/condition/position, To improve performance and independence with ADL's, To decrease level of supervision to perform tasks, To improve ability of physical actions for home/community/work/leisure, To improve gait and locomotor functions, To improve health of tissue, To improve endurance,To improve balance and To improve safety with gait Therapeutic Exercise to Include: Strength training, Endurance training, Balance training, Coordination and Active ROM For the Purpose of:: To improve ability to perform ADL's, To increase tolerance to activity/condition/position, To decrease level of supervision to perform tasks, To improve ability of physical actions for home/community/work/leisure, To improve gait and locomotor functions, To improve health of tissue, To decrease soft tissue restriction, To increase flexibility/ROM, To improve endurance and To improve safety with gait Functional Training to Include: Gait training For the Purpose of:: To improve gait and locomotor functions and To improve safety with gait Last Seen Last Seen: This patient was last seen in our office 04/14/24. Pertinent comments regardingtheir Physical therapy will appear below: CRIS PT At this point I will be discontinuing this patient from physical therapy. I would be happy to see this patient again in the future if found appropriate by the physician. Thank you! BLAIRE Gallagher Balance/Gait/Functional tests Balance/Special Test Scores Dizziness Score: 32 <Electronically signed by Varsha Dhaliwal MPT> 06/24/24 0823 CC: Dr. Maritza Pedraza MD ~ Signed [facility] Work Phone: 1(939) 992-779804-22-2025 Discharge summary [facility] Physical Therapy [facility] [address] [place] [address]. [address] [place] [address] / REHABILITATION SERVICES DISCHARGE SUMMARY MR#: [id number] Acct: [id number] Name: IVONNE MAYA Rep #: [id number] 01 : 1950 73 From: Varsha Dhaliwal MP T Referring Dr.: Dr. aMritza Pedraza MD Status: REG R Insurance: [employer] PAY INSURANCE Patient Information Patient Information: IVONNE MAYA was seen in my office for initial evaluation on 04/14/24. The following Plan of Care was established for this patient: POC Established Initial Frequency: 2x /Week Initial Duration: 2 Months Anticipated Interventions Patient/Client Instruction: Educate patient on: Condition and Plan of Care For the Purpose of:: To improve nutrient delivery to tissue, To improve muscle performance and motor function, To improve ability to perform ADL's, To increasetolerance to activity/condition/position, To improve performance and independence with ADL's, To decrease level of supervision to perform tasks, To improve ability of physical actions for home/community/work/leisure, To improve gait and locomotor functions, To improve health of tissue, To improve endurance,To improve balance and To improve safety with gait Therapeutic Exercise to Include: Strength training, Endurance training, Balance training, Coordination and Active ROM For the Purpose of:: To improve ability to perform ADL's, To increase tolerance to activity/condition/position, To decrease level of supervision to perform tasks, To improve ability of physical actions for home/community/work/leisure, To improve gait and locomotor functions, To improve health of tissue, To decrease soft tissue restriction, To increase flexibility/ROM, To improve endurance and To improve safety with gait Functional Training to Include: Gait training For the Purpose of:: To improve gait and locomotor functions and To improve safety with gait Last Seen Last Seen: This patient was last seen in our office 04/14/24. Pertinent comments regardingtheir Physical therapy will appear below: CRIS PT At this point I will be discontinuing this patient from physical therapy. I would be happy to see this patient again in the future if found appropriate by the physician. Thank you! Varsha Dhaliwal, BLAIRE Balance/Gait/Functional tests Balance/Special Test Scores Dizziness Score: 32 06/24/24 0823 CC: Dr. Maritza Pedraza MD ~ Signed [facility]04-03-2025 NoteDate of Procedure 06/05/2024 [place] Protocol Safety Checklist Sign In: A moment to CARE completed, Special equipment verified, Appropriate PPE verified, Patient name, date of , allergies and intended procedure verified. Provider Confirms: Intended patient and procedure match the source document, Consent documented and matches the intended procedure, Correct side/site marked visible. Relevant labs, photos, and/or imaging studies have been reviewed. Medications required for procedure verified. Fire risk assessed and interventions discussed. No implants. Anesthesia 0.5 mL subconjunctival injection of 2% Lidocaine, 1-2 drops Topical 0.5% Proparacaine. Prep 5% Betadine. Injection Administration Medication: 6 mg faricimab-svoa 6 mg/0.05 mL Route: INTRAVITREAL, Site: Left Balance Wasted Residual medication less than 1 unit was discarded. Anterior Chamber Paracentesis No. Post Injection Evaluation Patient has at least hand motion vision. Post Procedure Medications None. Home Going Prescription None. Sign Out Sign out discussion completed, All instruments, equipment, and/or possible retained foreign bodies accounted for, Post-procedure follow up management communicated. No specimens.[facility]04-03-2025 Instructions* Patient Instructions* Keara Choudhury MD, PhD - 06/05/2024 1:13 PM EDT Post Injection Patient Information You had eye injection(s) today. These are your after injection instructions. Today: Preservative free artificial tears 1 drop every hour while awake as needed Tomorrow: Preservative free artificial tears 1 drop every 2 hours while awake as needed Care instructions after eye injections: Do not rub or touch your eye other than dabbing lightly with a tissue An ufix-xuw-xywwmny pain reliever (i.e. Tylenol) can be used for mild soreness Use artificial tears/lubricating drops once an hour as needed for comfort (chill the tears in the refrigerator for more comfort). If you are using the tears more than 4 times a day they need to be the preservative free kind Warm or cool compresses are okay It is okay to shower and wash your face. No swimming pools or saunas for 24 hours COMMON symptoms after successful eye injections: Mild to moderate pain or irritation beginning the day of the injection. This should begin to improve the following day. Eyelash in the eye or lyric/gritty sensation Tearing Mild floaters or bubbles in your vision - usually resolves after 1-2 days Bloody tears for 1-2 days after treatment Eye Redness Also known as subconjunctival hemorrhage This bruise can cover the entire white part of the eye and may last a few weeks CONCERNING symptoms after eye injections: Severe, constant pain Worsening pain after the first day Decreased vision Severe, constant floaters Curtain or veil in your vision New eye redness that was not there after the injection and covers the whole eye Please call the office immediately for any of the above listed concerning symptoms or with any other questions. If it is after hours please call [phone] which will give instructions on how to reach the eye doctor medical consultant documented in this encounterGreen [facility]04-[facility]25 NoteDate of Procedure 06/05/2024. 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 Interpretation Left Eye Findings include Negative for CNV. Notes Unable [id number] NoteDate of Procedure 06/05/2024. 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 OCT Macula Interpretation Right Eye Normal foveal contour. Findings include Drusen. Left Eye Normal foveal contour. Findings include Intraretinal fluid, IS/OS junction, Atrophy.[id number] NoteHNO ID: [id number] Author: KEARA CHOUDHURY MD, PhD Service: ? Author Type: Physician Type: Progress Notes Filed: 06/05/2024 13:14 Note Text: Referred by Dr. Gibson Youssef for Age related macular degeneration eval 1. 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 Posterior vitreous detachment (PVD) right eye Retinal detachment precautions reviewed 4. Posterior chamber intraocular lens (PCIOL) both eyes -stable Plan: Start eylea 09/20/23 Start vabysmo 06/05/24 S/p eylea #5 left eye 8 weeks ago with trace IRF Approved for vabysmo today Switch to vabysmo and try to extend if good next visit Return in 8-9 weeks for sti Full exam in December I have confirmed and edited as necessary the relevant HPI, ophthalmic history, ROS, and the neuro exam findings as obtained by others. I have seen and examined Ivonne Maya. I have discussed the case and the management of this patient's care with the Resident/Fellow, if applicable. I also have reviewed and agree with the assessment and plan as stated above and agree with all of its relevant components. Keara Choudhury [facility]04-03-2025 History of Present illness Narrative* Keara Choudhury MD, PhD - 06/05/2024 11:24 AM EDT Referred by Dr. Gibson Youssef for Age related macular degeneration eval 1. 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 Posterior vitreous detachment (PVD) right eye Retinal detachment precautions reviewed 4. Posterior chamber intraocular lens (PCIOL) both eyes -stable Plan: Start eylea 09/20/23 Start vabysmo 06/05/24 S/p eylea #5 left eye 8 weeks ago with trace IRF Approved for vabysmo today Switch to vabysmo and try to extend if good next visit Return in 8-9 weeks for sti Full exam in December I have confirmed and edited as necessary the relevant HPI, ophthalmic history, ROS, and the neuro exam findings as obtained by others. I have seen and examined Ivonne Maya. I have discussed the case and the management of this patient's care with the Resident/Fellow, if applicable. I also have reviewed and agree with the assessment and plan as stated above and agree withall of its relevant components. Keara Choudhury MD documented in this encounterGreen [facility] Hospital04-[facility]-2025 Radiology Diagnostic study note [facility] Services [address] [place], [place] [address] HIP, UNI W/ Pelvis 2-3 Views MR#: [id number] Acct: [id number] Name: IVONNE MAYA Rep #: [id number] : 1950 F 73 From: Rohit Pichardo MD PCP: Dr. Maritza Pedraza MD Status: REG CL I Study:HIP, UNI W/ Pelvis 2-3 Views Date of Ex am: 06/02/24 Exam# [id number] Ordering Dr: Malou Pedraza MD PROCEDURE: HIP, UNI W/ PELVIS 2-3 VIEWS 06/02/2024 REASON FOR EXAM: HIP PAIN TECHNIQUE: AP view of the pelvis and two views of the right hip, 3 total images COMPARISON: 02/28/2023 FINDINGS: No fracture or dislocation. Symmetric appearing SI joints and pubic symphysis appear within limits.Partially imaged lower lumbar bilateral posterior fusion with intervertebral disc spacers. Lucency andirregularity along the peripheral aspect of the right greater trochanter may represent changes relating to tendinosis of the gluteal tendons. Pelvic phleboliths incidental. RAD/HIP, UNI W/ Pelvis 2-3 Views IMPRESSION: No fracture or dislocation. Lucency and irregularity along the peripheral aspect of the right greater trochanter may represent changes relating to tendinosis of the gluteal tendons. Reading Location: [id number] CC: Dr. 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: Signed [facility]02-07-2025 Evaluation note* Diagnosis Onset Date Resolution Status Admit Date Cervical myelopathy acute Febru jose a2024 8:53am History of lumbar fusion acute April 11, 2024 8:53am Lumbar scoliosis acute April 11, 2024 8:53am Osteopenia determined by x-ray acute April 11, 2024 8:53am Spinal stenosis of lumbar region with neurogenic claudication acute April 11 8:53am [facility] Work Phone: 1([phone]) 305-982802-06-2025 NoteDate of Procedure 04/10/2024 [place] Protocol Safety Checklist Sign In: A moment to CARE completed, Appropriate PPE verified, Special equipment verified, Patient name, date of , allergies and intended procedure verified. Provider Confirms: Correct side/site marked visible, Consent documented and matches the intended procedure, Intended patient and procedure match the source document. Relevant labs, photos, and/or imaging studies have been reviewed. Medications required for procedure verified. Fire risk assessed and interventions discussed. No implants. Anesthesia 1-2 drops Topical 0.5% Proparacaine, 0.5 mL subconjunctival injection of 2% Lidocaine. Prep 5% Betadine. Injection Administration Medication: 2 mg aflibercept prefilled syringe 2 mg/0.05 mL Route: INTRAVITREAL, Site: Left Balance Wasted Residual medication less than 1 unit was discarded. Anterior Chamber Paracentesis No. Post Injection Evaluation Patient has at least hand motion vision. Post Procedure Medications None. Home Going Prescription None. Sign Out Sign out discussion completed, All instruments, equipment, and/or possible retained foreign bodies accounted for, Post-procedure follow up management communicated. No specimens.[facility]02-06-2025 Instructions* Patient Instructions* Keara Choudhury MD, PhD - 04/10/2024 10:19 AM EST Post Injection Patient Information You had eye injection(s) today. These are your after injection instructions. Today: Preservative free artificial tears 1 drop every hour while awake as needed Tomorrow: Preservative free artificial tears 1 drop every 2 hours while awake as needed Care instructions after eye injections: Do not rub or touch your eye other than dabbing lightly with a tissue An haqt-avw-qztyvyp pain reliever (i.e. Tylenol) can be used for mild soreness Use artificial tears/lubricating drops once an hour as needed for comfort (chill the tears in the refrigerator for more comfort). If you are using the tears more than 4 times a day they need to be the preservative free kind Warm or cool compresses are okay It is okay to shower and wash your face. No swimming pools or saunas for 24 hours COMMON symptoms after successful eye injections: Mild to moderate pain or irritation beginning the day of the injection. This should begin to improve the following day. Eyelash in the eye or lyric/gritty sensation Tearing Mild floaters or bubbles in your vision - usually resolves after 1-2 days Bloody tears for 1-2 days after treatment Eye Redness Also known as subconjunctival hemorrhage This bruise can cover the entire white part of the eye and may last a few weeks CONCERNING symptoms after eye injections: Severe, constant pain Worsening pain after the first day Decreased vision Severe, constant floaters Curtain or veil in your vision New eye redness that was not there after the injection and covers the whole eye Please call the office immediately for any of the above listed concerning symptoms or with any other questions. If it is after hours please call [phone] which will give instructions on how to reach the eye doctor medical consultant documented in this encounterGreen [facility]02-[facility]25 NoteDate of Procedure 04/10/2024. 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 OCT Macula Interpretation Right Eye Normal foveal contour. Findings include Drusen. Left Eye Abnormal foveal contour. Findings include Intraretinal fluid, PED, Drusen, IS/OS junction, RPE Irregularity.[id number] NoteHNO ID: [id number] Author: KEARA CHOUDHURY MD, PhD Service: ? Author Type: Physician Type: Progress Notes Filed: 04/10/2024 10:19 Note Text: Referred by Dr. Gibson Youssef for Age related macular degeneration eval 1. 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 Posterior vitreous detachment (PVD) right eye Retinal detachment precautions reviewed 4. Posterior chamber intraocular lens (PCIOL) both eyes -stable Plan: Start eylea 09/20/23 S/p eylea #4 left eye 7 weeks ago with trace IRF Recommend eylea left eye today Return in 8-9 weeks for full exam and consider vabysmo or HD Apr 19 to Jun 03 going to [place] I have confirmed and edited as necessary the relevant HPI, ophthalmic history, ROS, and the neuro exam findings as obtained by others. I have seen and examined Ivonne Maya. I have discussed the case and the management of this patient's care with the Resident/Fellow, if applicable. I also have reviewed and agree with the assessment and plan as stated above and agree with all of its relevant components. Keara Choudhury [facility]02-06-2025 History of Present illness Narrative* Keara Choudhury MD, PhD - 04/10/2024 9:19 AM EST Referred by Dr. Gibson Youssef for Age related macular degeneration eval 1. 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 Posterior vitreous detachment (PVD) right eye Retinal detachment precautions reviewed 4. Posterior chamber intraocular lens (PCIOL) both eyes -stable Plan: Start eylea 09/20/23 S/p eylea #4 left eye 7 weeks ago with trace IRF Recommend eylea left eye today Return in 8-9 weeks for full exam and consider vabysmo or HD Apr 19 to Jun 03 going to [place] I have confirmed and edited as necessary the relevant HPI, ophthalmic history, ROS, and the neuro exam findings as obtained by others. I have seen and examined Ivonne Maya. I have discussed the case and the management of this patient's care with the Resident/Fellow, if applicable. I also have reviewed and agree with the assessment and plan as stated above and agree withall of its relevant components. Keara Choudhury MD documented in this encounterGreen [facility]01-[facility]25 Telephone encounter Note * Telephone Encounter - Daphney King - 03/28/2024 11:24 AM ESTSummary: RE: Medical condition Ivonne phoned stating she forgot to tell you that she had a cerebellum stroke approximately 3-4 weeks ago. [facility]01-24-2025 Miscellaneous Notes* Telephone Encounter - Daphney King - 03/28/2024 11:24 AM ESTSummary: RE: Medical condition Ivonne phoned stating she forgot to tell you that she had a cerebellum stroke approximately 3-4 weeks ago. documented in this encounterGreen Cross Hospital01-15-2025 Instructions* Patient Instructions* Kyra Youssef II, OD - 03/19/2024 1:31 PM EST Assessment and Plan H35.3221 Exudative age-related macular degeneration of left eye with active choroidal neovascularization (HCC) (primary encounter diagnosis) H35.3112 Intermediate stage nonexudative age-related macular degeneration of right eye Comment: Update refraction to maximize visual performance. Continue care with Dr. Choudhury as instructed. I have confirmed and edited as necessary the relevant HPI, ophthalmic history, ROS, and the neuro exam findings as obtained by others. I have seen and examined Ivonne Maya. I have discussed the case and the management of this patient's care with the Resident/Fellow, if applicable. I also have reviewed and agree with the assessment and plan as stated above and agree withall of its relevant components. documented in this encounterGreen Cross Hospital01-15-2025 NoteHNO ID: [id number] Author: KYRA YOUSSEF II, OD Service: ? Author Type: SHELVER Type: Progress Notes Filed: 03/19/2024 13:32 Note Text: Assessment and Plan H35.3221 Exudative age-related macular degeneration of left eye with active choroidal neovascularization (HCC) (primary encounter diagnosis) H35.3112 Intermediate stage nonexudative age-related macular degeneration of right eye Comment: Update refraction to maximize visual performance. Continue care with Dr. Choudhury as instructed. I have confirmed and edited as necessary the relevant HPI, ophthalmic history, ROS, and the neuro exam findings as obtained by others. I have seen and examined Ivonne Maya. I have discussed the case and the management of this patient's care with the Resident/Fellow, if applicable. I also have reviewed and agree with the assessment and plan as stated above and agree with all of its relevant components.[facility] [id number] History of Present illness Narrative* Kyra Youssef II, OD - 03/19/2024 1:30 PM EST Assessment and Plan H35.3221 Exudative age-related macular degeneration of left eye with active choroidal neovascularization (HCC) (primary encounter diagnosis) H35.3112 Intermediate stage nonexudative age-related macular degeneration of right eye Comment: Update refraction to maximize visual performance. Continue care with Dr. Choudhury as instructed. I have confirmed and edited as necessary the relevant HPI, ophthalmic history, ROS, and the neuro exam findings as obtained by others. I have seen and examined Ivonne Maya. I have discussed the case and the management of this patient's care with the Resident/Fellow, if applicable. I also have reviewed and agree with the assessment and plan as stated above and agree withall of its relevant components. documented in this encounterGreen Cross Hospital12-19-2024 NoteDate of Procedure 02/21/2024 [place] Protocol Safety Checklist Sign In: A moment to CARE completed, Appropriate PPE verified, Special equipment verified, Patient name, date of , allergies and intended procedure verified. Provider Confirms: Correct side/site marked visible, Consent documented and matches the intended procedure, Intended patient and procedure match the source document. Relevant labs, photos, and/or imaging studies have been reviewed. Medications required for procedure verified. Fire risk assessed and interventions discussed. No implants. Anesthesia 1-2 drops Topical 0.5% Proparacaine, 0.5 mL subconjunctival injection of 2% Lidocaine. Prep 5% Betadine. Injection Administration Medication: 2 mg aflibercept prefilled syringe 2 mg/0.05 mL Route: INTRAVITREAL, Site: Left Balance Wasted Residual medication less than 1 unit was discarded. Anterior Chamber Paracentesis No. Post Injection Evaluation Patient has at least hand motion vision. Post Procedure Medications None. Home Going Prescription None. Sign Out Sign out discussion completed, All instruments, equipment, and/or possible retained foreign bodies accounted for, Post-procedure follow up management communicated. No specimens.[facility]12-19-2024 Instructions* Patient Instructions* Keara Choudhury MD, PhD - 02/21/2024 9:26 AM EST Post Injection Patient Information You had eye injection(s) today. These are your after injection instructions. Today: Preservative free artificial tears 1 drop every hour while awake as needed Tomorrow: Preservative free artificial tears 1 drop every 2 hours while awake as needed Care instructions after eye injections: Do not rub or touch your eye other than dabbing lightly with a tissue An cwyv-ysb-poxfkua pain reliever (i.e. Tylenol) can be used for mild soreness Use artificial tears/lubricating drops once an hour as needed for comfort (chill the tears in the refrigerator for more comfort). If you are using the tears more than 4 times a day they need to be the preservative free kind Warm or cool compresses are okay It is okay to shower and wash your face. No swimming pools or saunas for 24 hours COMMON symptoms after successful eye injections: Mild to moderate pain or irritation beginning the day of the injection. This should begin to improve the following day. Eyelash in the eye or lyric/gritty sensation Tearing Mild floaters or bubbles in your vision - usually resolves after 1-2 days Bloody tears for 1-2 days after treatment Eye Redness Also known as subconjunctival hemorrhage This bruise can cover the entire white part of the eye and may last a few weeks CONCERNING symptoms after eye injections: Severe, constant pain Worsening pain after the first day Decreased vision Severe, constant floaters Curtain or veil in your vision New eye redness that was not there after the injection and covers the whole eye Please call the office immediately for any of the above listed concerning symptoms or with any other questions. If it is after hours please call [phone] which will give instructions on how to reach the eye doctor medical consultant documented in this encounterGreen Cross Hospital12-19-2024 NoteDate of Procedure 02/21/2024. 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 Findings include Drusen. Left Eye Normal foveal contour. Findings include Intraretinal fluid, Drusen, IS/OS junction, Atrophy.[id number] NoteHNO ID: [id number] Author: KEARA CHOUDHURY MD, PhD Service: ? Author Type: Physician Type: Progress Notes Filed: 02/21/2024 09:27 Note Text: Referred by Dr. Gibson Youssef for Age related macular degeneration eval 1. 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 Posterior vitreous detachment (PVD) right eye Retinal detachment precautions reviewed 4. Posterior chamber intraocular lens (PCIOL) both eyes -stable Plan: Start eylea 09/20/23 S/p eylea #3 left eye 7 weeks ago with stable IRF Recommend eylea left eye today Return in 7-9 weeks for sti Full exam in may I have confirmed and edited as necessary the relevant HPI, ophthalmic history, ROS, and the neuro exam findings as obtained by others. I have seen and examined Ivonne Maya. I have discussed the case and the management of this patient's care with the Resident/Fellow, if applicable. I also have reviewed and agree with the assessment and plan as stated above and agree with all of its relevant components. Keara Choudhury [facility]12-19-2024 History of Present illness Narrative* Keara Choudhury MD, PhD - 02/21/2024 8:25 AM EST Referred by Dr. Gibson Youssef for Age related macular degeneration eval 1. 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 Posterior vitreous detachment (PVD) right eye Retinal detachment precautions reviewed 4. Posterior chamber intraocular lens (PCIOL) both eyes -stable Plan: Start eylea 09/20/23 S/p eylea #3 left eye 7 weeks ago with stable IRF Recommend eylea left eye today Return in 7-9 weeks for sti Full exam in may I have confirmed and edited as necessary the relevant HPI, ophthalmic history, ROS, and the neuro exam findings as obtained by others. I have seen and examined Ivonne Maya. I have discussed the case and the management of this patient's care with the Resident/Fellow, if applicable. I also have reviewed and agree with the assessment and plan as stated above and agree withall of its relevant components. Keara Choudhury MD documented in this encounterGreen Cross Hospital10-31-2024 NoteDate of Procedure 01/03/2024 [place] Protocol Safety Checklist Sign In: A moment to CARE completed, Appropriate PPE verified, Special equipment verified, Patient name, date of , allergies and intended procedure verified. Provider Confirms: Correct side/site marked visible, Consent documented and matches the intended procedure, Intended patient and procedure match the source document. Relevant labs, photos, and/or imaging studies have been reviewed. Medications required for procedure verified. Fire risk assessed and interventions discussed. No implants. Anesthesia 1-2 drops Topical 0.5% Proparacaine, 0.5 mL subconjunctival injection of 2% Lidocaine. Prep 5% Betadine. Injection Administration Medication: 2 mg aflibercept prefilled syringe 2 mg/0.05 mL Route: INTRAVITREAL, Site: Left Balance Wasted Residual medication less than 1 unit was discarded. Anterior Chamber Paracentesis No. Post Injection Evaluation Patient has at least hand motion vision. Post Procedure Medications None. Home Going Prescription None. Sign Out Sign out discussion completed, All instruments, equipment, and/or possible retained foreign bodies accounted for, Post-procedure follow up management communicated. No specimens.[facility]10-[facility] Instructions* Patient Instructions* Keara Choudhury MD, PhD - 01/03/2024 10:22 AM EDT Post Injection Patient Information You had eye injection(s) today. These are your after injection instructions. Today: Preservative free artificial tears 1 drop every hour while awake as needed Tomorrow: Preservative free artificial tears 1 drop every 2 hours while awake as needed Care instructions after eye injections: Do not rub or touch your eye other than dabbing lightly with a tissue An lnrd-ixk-plxklyg pain reliever (i.e. Tylenol) can be used for mild soreness Use artificial tears/lubricating drops once an hour as needed for comfort (chill the tears in the refrigerator for more comfort). If you are using the tears more than 4 times a day they need to be the preservative free kind Warm or cool compresses are okay It is okay to shower and wash your face. No swimming pools or saunas for 24 hours COMMON symptoms after successful eye injections: Mild to moderate pain or irritation beginning the day of the injection. This should begin to improve the following day. Eyelash in the eye or lyric/gritty sensation Tearing Mild floaters or bubbles in your vision - usually resolves after 1-2 days Bloody tears for 1-2 days after treatment Eye Redness Also known as subconjunctival hemorrhage This bruise can cover the entire white part of the eye and may last a few weeks CONCERNING symptoms after eye injections: Severe, constant pain Worsening pain after the first day Decreased vision Severe, constant floaters Curtain or veil in your vision New eye redness that was not there after the injection and covers the whole eye Please call the office immediately for any of the above listed concerning symptoms or with any other questions. If it is after hours please call [phone] which will give instructions on how to reach the eye doctor medical consultant documented in this encounterGreen Cross Hospital10-31-2024 NoteDate of Procedure 01/03/2024. Interpretation Right Eye Normal foveal contour. Findings include Drusen. Left Eye Normal foveal contour. Findings include Intraretinal fluid, Drusen; Negative for Cystoid macular edema, Subretinal fluid.[id number] NoteHNO ID: [id number] Author: KEARA CHOUDHURY MD, PhD Service: ? Author Type: Physician Type: Progress Notes Filed: 01/03/2024 10:22 Note Text: Referred by Dr. Gibson Youssef for Age related macular degeneration eval 1. 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 Posterior vitreous detachment (PVD) right eye Retinal detachment precautions reviewed 4. Posterior chamber intraocular lens (PCIOL) both eyes -stable Plan: S/p eylea #2 left eye 8 weeks ago (planned extension) with trace IRF Recommend eylea #3 left eye today Return in 7 or 10 weeks for sti Full exam in may I have confirmed and edited as necessary the relevant HPI, ophthalmic history, ROS, and the neuro exam findings as obtained by others. I have seen and examined Ivonne Maya. I have discussed the case and the management of this patient's care with the Resident/Fellow, if applicable. I also have reviewed and agree with the assessment and plan as stated above and agree with all of its relevant components. Keara Choudhury [facility]10-31-2024 History of Present illness Narrative* Keara Choudhury MD, PhD - 01/03/2024 10:03 AM EDT Referred by Dr. Gibson Youssef for Age related macular degeneration eval 1. 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 Posterior vitreous detachment (PVD) right eye Retinal detachment precautions reviewed 4. Posterior chamber intraocular lens (PCIOL) both eyes -stable Plan: S/p eylea #2 left eye 8 weeks ago (planned extension) with trace IRF Recommend eylea #3 left eye today Return in 7 or 10 weeks for sti Full exam in may I have confirmed and edited as necessary the relevant HPI, ophthalmic history, ROS, and the neuro exam findings as obtained by others. I have seen and examined Ivonne Maya. I have discussed the case and the management of this patient's care with the Resident/Fellow, if applicable. I also have reviewed and agree with the assessment and plan as stated above and agree withall of its relevant components. Keara Choudhury MD documented in this encounterGreen Cross Hospital09-05-2024 NoteDate of Procedure 11/08/2023 [place] Protocol Safety Checklist Sign In: A moment to CARE completed, Appropriate PPE verified, Special equipment verified, Patient name, date of , allergies and intended procedure verified. Provider Confirms: Correct side/site marked visible, Consent documented and matches the intended procedure, Intended patient and procedure match the source document. Relevant labs, photos, and/or imaging studies have been reviewed. Medications required for procedure verified. Fire risk assessed and interventions discussed. No implants. Anesthesia 1-2 drops Topical 0.5% Proparacaine, 0.5 mL subconjunctival injection of 2% Lidocaine. Prep 5% Betadine. Injection Administration Medication: 2 mg aflibercept prefilled syringe 2 mg/0.05 mL Route: INTRAVITREAL, Site: Left Balance Wasted Residual medication less than 1 unit was discarded. Anterior Chamber Paracentesis No. Post Injection Evaluation Patient has at least hand motion vision. Post Procedure Medications None. Home Going Prescription None. Sign Out Sign out discussion completed, All instruments, equipment, and/or possible retained foreign bodies accounted for, Post-procedure follow up management communicated. No specimens.[facility]09-[facility] Instructions* Patient Instructions* Keara Choudhury MD, PhD - 11/08/2023 2:53 PM EDT Post Injection Patient Information You had eye injection(s) today. These are your after injection instructions. Today: Preservative free artificial tears 1 drop every hour while awake as needed Tomorrow: Preservative free artificial tears 1 drop every 2 hours while awake as needed Care instructions after eye injections: Do not rub or touch your eye other than dabbing lightly with a tissue An fnwt-blj-mustgtg pain reliever (i.e. Tylenol) can be used for mild soreness Use artificial tears/lubricating drops once an hour as needed for comfort (chill the tears in the refrigerator for more comfort). If you are using the tears more than 4 times a day they need to be the preservative free kind Warm or cool compresses are okay It is okay to shower and wash your face. No swimming pools or saunas for 24 hours COMMON symptoms after successful eye injections: Mild to moderate pain or irritation beginning the day of the injection. This should begin to improve the following day. Eyelash in the eye or lyric/gritty sensation Tearing Mild floaters or bubbles in your vision - usually resolves after 1-2 days Bloody tears for 1-2 days after treatment Eye Redness Also known as subconjunctival hemorrhage This bruise can cover the entire white part of the eye and may last a few weeks CONCERNING symptoms after eye injections: Severe, constant pain Worsening pain after the first day Decreased vision Severe, constant floaters Curtain or veil in your vision New eye redness that was not there after the injection and covers the whole eye Please call the office immediately for any of the above listed concerning symptoms or with any other questions. If it is after hours please call [phone] which will give instructions on how to reach the eye doctor medical consultant documented in this encounter[facility]09-[facility]24 NoteDate of Procedure 11/08/2023. [employer] Operator Helper Information Rectification Printer: [email or web address]. Interpretation Right Eye Normal foveal contour. Findings include Drusen. Left Eye Normal foveal contour. Findings include PED, Drusen, IS/OS junction; Negative for Intraretinal fluid, Cystoid macular edema, Subretinal fluid.[facility] 11-08-2023 NoteHNO ID: [id number] Author: KEARA CHOUDHURY MD, PhD Service: ? Author Type: Physician Type: Progress Notes Filed: 11/08/2023 14:53 Note Text: Referred by Dr. Gibson Youssef for Age related macular degeneration eval 1. 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 Posterior vitreous detachment (PVD) right eye Retinal detachment precautions reviewed 4. Posterior chamber intraocular lens (PCIOL) both eyes -stable Plan: S/p eylea #1 left eye 7 weeks ago with no fluid Recommend eylea #2 left eye today Extend to 8-9 weeks for sti Full exam in may I have confirmed and edited as necessary the relevant HPI, ophthalmic history, ROS, and the neuro exam findings as obtained by others. I have seen and examined Ivonne Maya. I have discussed the case and the management of this patient's care with the Resident/Fellow, if applicable. I also have reviewed and agree with the assessment and plan as stated above and agree with all of its relevant components. Keara Choudhury [facility]09-05-2024 History of Present illness Narrative* Keara Choudhury MD, PhD - 11/08/2023 2:24 PM EDT Referred by Dr. Gibson Youssef for Age related macular degeneration eval 1. 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 Posterior vitreous detachment (PVD) right eye Retinal detachment precautions reviewed 4. Posterior chamber intraocular lens (PCIOL) both eyes -stable Plan: S/p eylea #1 left eye 7 weeks ago with no fluid Recommend eylea #2 left eye today Extend to 8-9 weeks for sti Full exam in may I have confirmed and edited as necessary the relevant HPI, ophthalmic history, ROS, and the neuro exam findings as obtained by others. I have seen and examined Ivonne Maya. I have discussed the case and the management of this patient's care with the Resident/Fellow, if applicable. I also have reviewed and agree with the assessment and plan as stated above and agree withall of its relevant components. Keara Choudhury MD documented in this encounterGreen [facility]07-18-2024 NoteDate of Procedure 09/20/2023 [place] Protocol Safety Checklist Sign In: A moment to CARE completed, Appropriate PPE verified, Special equipment verified, Patient name, date of , allergies and intended procedure verified. Provider Confirms: Correct side/site marked visible, Consent documented and matches the intended procedure, Intended patient and procedure match the source document. Relevant labs, photos, and/or imaging studies have been reviewed. Medications required for procedure verified. Fire risk assessed and interventions discussed. No implants. Anesthesia 1-2 drops Topical 0.5% Proparacaine, 0.5 mL subconjunctival injection of 2% Lidocaine. Prep 5% Betadine. Injection Administration Medication: 2 mg aflibercept prefilled syringe 2 mg/0.05 mL Route: INTRAVITREAL, Site: Left Balance Wasted Residual medication less than 1 unit was discarded. Anterior Chamber Paracentesis No. Post Injection Evaluation Patient has at least hand motion vision. Post Procedure Medications None. Home Going Prescription None. Sign Out Sign out discussion completed, All instruments, equipment, and/or possible retained foreign bodies accounted for, Post-procedure follow up management communicated. No specimens.[facility]07-18-2024 Instructions* Patient Instructions* Keara Choudhury MD, PhD - 09/20/2023 4:05 PM EDT Post Injection Patient Information You had eye injection(s) today. These are your after injection instructions. Today: Preservative free artificial tears 1 drop every hour while awake as needed Tomorrow: Preservative free artificial tears 1 drop every 2 hours while awake as needed Care instructions after eye injections: Do not rub or touch your eye other than dabbing lightly with a tissue An reih-mai-jquylci pain reliever (i.e. Tylenol) can be used for mild soreness Use artificial tears/lubricating drops once an hour as needed for comfort (chill the tears in the refrigerator for more comfort). If you are using the tears more than 4 times a day they need to be the preservative free kind Warm or cool compresses are okay It is okay to shower and wash your face. No swimming pools or saunas for 24 hours COMMON symptoms after successful eye injections: Mild to moderate pain or irritation beginning the day of the injection. This should begin to improve the following day. Eyelash in the eye or lyric/gritty sensation Tearing Mild floaters or bubbles in your vision - usually resolves after 1-2 days Bloody tears for 1-2 days after treatment Eye Redness Also known as subconjunctival hemorrhage This bruise can cover the entire white part of the eye and may last a few weeks CONCERNING symptoms after eye injections: Severe, constant pain Worsening pain after the first day Decreased vision Severe, constant floaters Curtain or veil in your vision New eye redness that was not there after the injection and covers the whole eye Please call the office immediately for any of the above listed concerning symptoms or with any other questions. If it is after hours please call [phone] which will give instructions on how to reach the eye doctor medical consultant documented in this encounterGreen [facility]07-18-2024 NoteDate of Procedure 09/20/2023. [employer] Operator Helper Information Rectification Printer: [email or web address]. Interpretation Right Eye Normal foveal contour. Findings include Drusen. Left Eye Abnormal foveal contour. Findings include PED, Drusen; Negative for Cystoid macular edema, Subretinal fluid.[id number] NoteHNO ID: [id number] Author: KEARA CHOUDHURY MD, PhD Service: ? Author Type: Physician Type: Progress Notes Filed: 09/20/2023 16:05 Note Text: Referred by Dr. Gibson Youssef for Age related macular degeneration eval 1. Exudative Age related macular degeneration left eye -patient started noticing symptoms late 04/2023 -wavy lines and shadow -improved with avastin, started 05/10/23 -start eylea 09/20/23 2. 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 Posterior vitreous detachment (PVD) right eye Retinal detachment precautions reviewed 4. Posterior chamber intraocular lens (PCIOL) both eyes -stable Plan: S/p avastin left eye 6 weeks ago with improved IRF/CNV Recommend eylea #1 left eye today Return in 6-8 weeks for full exam I have confirmed and edited as necessary the relevant HPI, ophthalmic history, ROS, and the neuro exam findings as obtained by others. I have seen and examined Ivonne Maya. I have discussed the case and the management of this patient's care with the Resident/Fellow, if applicable. I also have reviewed and agree with the assessment and plan as stated above and agree with all of its relevant components. Keara Choudhury [facility]07-18-2024 History of Present illness Narrative* Keara Choudhury MD, PhD - 09/20/2023 2:53 PM EDT Referred by Dr. Gibson Youssef for Age related macular degeneration eval 1. Exudative Age related macular degeneration left eye -patient started noticing symptoms late 04/2023 -wavy lines and shadow -improved with avastin, started 05/10/23 -start eylea 09/20/23 2. 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 Posterior vitreous detachment (PVD) right eye Retinal detachment precautions reviewed 4. Posterior chamber intraocular lens (PCIOL) both eyes -stable Plan: S/p avastin left eye 6 weeks ago with improved IRF/CNV Recommend eylea #1 left eye today Return in 6-8 weeks for full exam I have confirmed and edited as necessary the relevant HPI, ophthalmic history, ROS, and the neuro exam findings as obtained by others. I have seen and examined Ivonne Maya. I have discussed the case and the management of this patient's care with the Resident/Fellow, if applicable. I also have reviewed and agree with the assessment and plan as stated above and agree withall of its relevant components. Keara Choudhury MD documented in this encounterGreen [facility]06-06-2024 NoteDate of Procedure 08/09/2023 [place] Protocol Safety Checklist Sign In: A moment to CARE completed, Special equipment verified, Appropriate PPE verified, Patient name, date of , allergies and intended procedure verified. Provider Confirms: Correct side/site marked visible, Consent documented and matches the intended procedure, Intended patient and procedure match the source document. Relevant labs, photos, and/or imaging studies have been reviewed. Medications required for procedure verified. Fire risk assessed and interventions discussed. No implants. Anesthesia 1-2 drops Topical 0.5% Proparacaine, 0.5 mL subconjunctival injection of 2% Lidocaine. Prep 5% Betadine. Injection Administration Medication: 1.25 mg bevacizumab (Milton's) 2.75 mg/0.11 mL Route: INTRAVITREAL, Site: Left Balance Wasted Residual medication less than 1 unit was discarded. Anterior Chamber Paracentesis No. Post Injection Evaluation Patient has at least hand motion vision. Post Procedure Medications None. Home Going Prescription None. Sign Out Sign out discussion completed, All instruments, equipment, and/or possible retained foreign bodies accounted for, Post-procedure follow up management communicated. No specimens.[facility]06-06-2024 Instructions* Patient Instructions* Keara Choudhury MD, PhD - 08/09/2023 4:31 PM EDT Post Injection Patient Information You had eye injection(s) today. These are your after injection instructions. Today: Preservative free artificial tears 1 drop every hour while awake as needed Tomorrow: Preservative free artificial tears 1 drop every 2 hours while awake as needed Care instructions after eye injections: Do not rub or touch your eye other than dabbing lightly with a tissue An wvqb-qog-jnxzzzb pain reliever (i.e. Tylenol) can be used for mild soreness Use artificial tears/lubricating drops once an hour as needed for comfort (chill the tears in the refrigerator for more comfort). If you are using the tears more than 4 times a day they need to be the preservative free kind Warm or cool compresses are okay It is okay to shower and wash your face. No swimming pools or saunas for 24 hours COMMON symptoms after successful eye injections: Mild to moderate pain or irritation beginning the day of the injection. This should begin to improve the following day. Eyelash in the eye or lyric/gritty sensation Tearing Mild floaters or bubbles in your vision - usually resolves after 1-2 days Bloody tears for 1-2 days after treatment Eye Redness Also known as subconjunctival hemorrhage This bruise can cover the entire white part of the eye and may last a few weeks CONCERNING symptoms after eye injections: Severe, constant pain Worsening pain after the first day Decreased vision Severe, constant floaters Curtain or veil in your vision New eye redness that was not there after the injection and covers the whole eye Please call the office immediately for any of the above listed concerning symptoms or with any other questions. If it is after hours please call [phone] which will give instructions on how to reach the eye doctor medical consultant documented in this encounterGreen [facility] Hospital06-06-2024 NoteDate of Procedure 08/09/2023. Interpretation Right Eye Normal foveal contour. Findings include Drusen; Negative for Intraretinal fluid, Subretinal fluid. Left Eye Normal foveal contour. Findings include Intraretinal fluid, PED, Drusen; Negative for Subretinal fluid. Interval Change Right Eye Stable. Left Eye Better.[id number] History of Present illness Narrative* Keara Choudhury MD, PhD - 08/09/2023 4:10 PM EDT Referred by Dr. Gibson Youssef for Age related macular degeneration eval 1. 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 Posterior vitreous detachment (PVD) right eye Retinal detachment precautions reviewed 4. Posterior chamber intraocular lens (PCIOL) both eyes -stable Plan: Nice response to Avastin #3 left eye 5w ago - resolved IRF Recommend Avastin #4 today left eye Extend to 6-8 wks sti Avastin, possibly preauth Eylea if unable to extend Full exam in November I have confirmed and edited as necessary the relevant HPI, ophthalmic history, ROS, and the neuro exam findings as obtained by others. I have seen and examined Ivonne Maya. I have discussed the case and the management of this patient's care with the Resident/Fellow, if applicable. I also have reviewed and agree with the assessment and plan as stated above and agree withall of its relevant components. Keara Choudhury MD documented in this encounterGreen Cross Hospital06-06-2024 NoteHNO ID: [id number] Author: KEARA CHOUDHURY MD, PhD Service: ? Author Type: Physician Type: Progress Notes Filed: 08/09/2023 16:31 Note Text: Referred by Dr. Gibson Youssef for Age related macular degeneration eval 1. 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 Posterior vitreous detachment (PVD) right eye Retinal detachment precautions reviewed 4. Posterior chamber intraocular lens (PCIOL) both eyes -stable Plan: Nice response to Avastin #3 left eye 5w ago - resolved IRF Recommend Avastin #4 today left eye Extend to 6-8 wks sti Avastin, possibly preauth Eylea if unable to extend Full exam in November I have confirmed and edited as necessary the relevant HPI, ophthalmic history, ROS, and the neuro exam findings as obtained by others. I have seen and examined Ivonne Maya. I have discussed the case and the management of this patient's care with the Resident/Fellow, if applicable. I also have reviewed and agree with the assessment and plan as stated above and agree with all of its relevant components. Keara Choudhury [facility]05-02-2024 NoteDate of Procedure 07/05/2023 [place] Protocol Safety Checklist Sign In: A moment to CARE completed, Special equipment verified, Appropriate PPE verified, Patient name, date of , allergies and intended procedure verified. Provider Confirms: Correct side/site marked visible, Consent documented and matches the intended procedure, Intended patient and procedure match the source document. Relevant labs, photos, and/or imaging studies have been reviewed. Medications required for procedure verified. Fire risk assessed and interventions discussed. No implants. Anesthesia 1-2 drops Topical 0.5% Proparacaine, 0.5 mL subconjunctival injection of 2% Lidocaine. Prep 5% Betadine. Injection Administration Medication: 1.25 mg bevacizumab (Milton's) 2.75 mg/0.11 mL Route: INTRAVITREAL, Site: Left Balance Wasted Residual medication less than 1 unit was discarded. Anterior Chamber Paracentesis No. Post Injection Evaluation Patient has at least hand motion vision. Post Procedure Medications None. Home Going Prescription None. Sign Out Sign out discussion completed, All instruments, equipment, and/or possible retained foreign bodies accounted for, Post-procedure follow up management communicated. No specimens.[facility]05-02-20[facility] Instructions* Patient Instructions* Keara Choudhury MD, PhD - 07/05/2023 4:27 PM EDT Post Injection Patient Information You had eye injection(s) today. These are your after injection instructions. Today: Preservative free artificial tears 1 drop every hour while awake as needed Tomorrow: Preservative free artificial tears 1 drop every 2 hours while awake as needed Care instructions after eye injections: Do not rub or touch your eye other than dabbing lightly with a tissue An jxit-wmu-wzerltv pain reliever (i.e. Tylenol) can be used for mild soreness Use artificial tears/lubricating drops once an hour as needed for comfort (chill the tears in the refrigerator for more comfort). If you are using the tears more than 4 times a day they need to be the preservative free kind Warm or cool compresses are okay It is okay to shower and wash your face. No swimming pools or saunas for 24 hours COMMON symptoms after successful eye injections: Mild to moderate pain or irritation beginning the day of the injection. This should begin to improve the following day. Eyelash in the eye or lyric/gritty sensation Tearing Mild floaters or bubbles in your vision - usually resolves after 1-2 days Bloody tears for 1-2 days after treatment Eye Redness Also known as subconjunctival hemorrhage This bruise can cover the entire white part of the eye and may last a few weeks CONCERNING symptoms after eye injections: Severe, constant pain Worsening pain after the first day Decreased vision Severe, constant floaters Curtain or veil in your vision New eye redness that was not there after the injection and covers the whole eye Please call the office immediately for any of the above listed concerning symptoms or with any other questions. If it is after hours please call [phone] which will give instructions on how to reach the eye doctor medical consultant documented in this encounterGreen [facility] Hospital05-02-2024 NoteDate of Procedure 07/05/2023. 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 Interpretation Right Eye Normal foveal contour. Findings include Drusen. Left Eye Normal foveal contour. Findings include IS/OS junction; Negative for Intraretinal fluid, Subretinal fluid.[id number] History of Present illness Narrative* Keara Choudhury MD, PhD - 07/05/2023 4:24 PM EDT Referred by Dr. Gibson Youssef for Age related macular degeneration eval 1. 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 Posterior vitreous detachment (PVD) right eye Retinal detachment precautions reviewed 4. Posterior chamber intraocular lens (PCIOL) both eyes -stable Plan: Nice response to Avastin #2 4w ago - nice response but persistent IRF Recommend Avastin #3 today left eye Extend to 5 wks sti Avastin Full exam in November I have confirmed and edited as necessary the relevant HPI, ophthalmic history, ROS, and the neuro exam findings as obtained by others. I have seen and examined Ivonne Maya. I have discussed the case and the management of this patient's care with the Resident/Fellow, if applicable. I also have reviewed and agree with the assessment and plan as stated above and agree withall of its relevant components. Keara Choudhury MD documented in this encounterGreen Cross Hospital04-04-2024 Instructions* Patient Instructions* Keara Choudhury MD, PhD - 06/07/2023 4:20 PM EDT Post Injection Patient Information You had eye injection(s) today. These are your after injection instructions. Today: Preservative free artificial tears 1 drop every hour while awake as needed Tomorrow: Preservative free artificial tears 1 drop every 2 hours while awake as needed Care instructions after eye injections: Do not rub or touch your eye other than dabbing lightly with a tissue An yqal-rty-kvzdeby pain reliever (i.e. Tylenol) can be used for mild soreness Use artificial tears/lubricating drops once an hour as needed for comfort (chill the tears in the refrigerator for more comfort). If you are using the tears more than 4 times a day they need to be the preservative free kind Warm or cool compresses are okay It is okay to shower and wash your face. No swimming pools or saunas for 24 hours COMMON symptoms after successful eye injections: Mild to moderate pain or irritation beginning the day of the injection. This should begin to improve the following day. Eyelash in the eye or lyric/gritty sensation Tearing Mild floaters or bubbles in your vision - usually resolves after 1-2 days Bloody tears for 1-2 days after treatment Eye Redness Also known as subconjunctival hemorrhage This bruise can cover the entire white part of the eye and may last a few weeks CONCERNING symptoms after eye injections: Severe, constant pain Worsening pain after the first day Decreased vision Severe, constant floaters Curtain or veil in your vision New eye redness that was not there after the injection and covers the whole eye Please call the office immediately for any of the above listed concerning symptoms or with any other questions. If it is after hours please call [phone] which will give instructions on how to reach the eye doctor medical consultant documented in this encounterGreen Cross Hospital04-04-2024 History of Present illness Narrative* Keara Choudhury MD, PhD - 06/07/2023 4:01 PM EDT Referred by Dr. Gibson Youssef for Age related macular degeneration eval 1. 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 -Risks, benefits, alternatives and personnel discussed with patient who consents to proceed. 2. 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 Posterior vitreous detachment (PVD) right eye Retinal detachment precautions reviewed 4. Posterior chamber intraocular lens (PCIOL) both eyes -stable Plan: Nice response to Avastin #1 4w ago - nice response but persistent IRF Recommend Avastin #2 today Return in 4 weeks for sti Avastin Full exam in November I have confirmed and edited as necessary the relevant HPI, ophthalmic history, ROS, and the neuro exam findings as obtained by others. I have seen and examined Ivonne Maya. I have discussed the case and the management of this patient's care with the Resident/Fellow, if applicable. I also have reviewed and agree with the assessment and plan as stated above and agree withall of its relevant components. Keara Choudhury MD documented in this encounterGreen [facility]03-07-[facility]24 Instructions* Patient Instructions* Keara Choudhury MD, PhD - 05/10/2023 11:44 AM EST Post Injection Patient Information You had eye injection(s) today. These are your after injection instructions. Today: Preservative free artificial tears 1 drop every hour while awake as needed Tomorrow: Preservative free artificial tears 1 drop every 2 hours while awake as needed Care instructions after eye injections: Do not rub or touch your eye other than dabbing lightly with a tissue An pcuu-bfs-kciechf pain reliever (i.e. Tylenol) can be used for mild soreness Use artificial tears/lubricating drops once an hour as needed for comfort (chill the tears in the refrigerator for more comfort). If you are using the tears more than 4 times a day they need to be the preservative free kind Warm or cool compresses are okay It is okay to shower and wash your face. No swimming pools or saunas for 24 hours COMMON symptoms after successful eye injections: Mild to moderate pain or irritation beginning the day of the injection. This should begin to improve the following day. Eyelash in the eye or lyric/gritty sensation Tearing Mild floaters or bubbles in your vision - usually resolves after 1-2 days Bloody tears for 1-2 days after treatment Eye Redness Also known as subconjunctival hemorrhage This bruise can cover the entire white part of the eye and may last a few weeks CONCERNING symptoms after eye injections: Severe, constant pain Worsening pain after the first day Decreased vision Severe, constant floaters Curtain or veil in your vision New eye redness that was not there after the injection and covers the whole eye Please call the office immediately for any of the above listed concerning symptoms or with any other questions. If it is after hours please call [phone] which will give instructions on how to reach the eye doctor medical consultant documented in this encounterGreen Cross Hospital03-07-2024 History of Present illness Narrative* Keara Choudhury MD, PhD - 05/10/2023 10:30 AM EST Referred by Dr. Gibson Youssef for Age related macular degeneration eval 1. 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 -Risks, benefits, alternatives and personnel discussed with patient who consents to proceed. 2. 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 Posterior vitreous detachment (PVD) right eye Retinal detachment precautions reviewed 4. Posterior chamber intraocular lens (PCIOL) both eyes -stable Plan: Rec Avastin left eye today Pre-cert Eylea Return in 4 weeks for sti Full exam in November I have confirmed and edited as necessary the relevant HPI, ophthalmic history, ROS, and the neuro exam findings as obtained by others. I have seen and examined Ivonne Maya. I have discussed the case and the management of this patient's care with the Resident/Fellow, if applicable. I also have reviewed and agree with the assessment and plan as stated above and agree withall of its relevant components. Keara Choudhury MD documented in this encounterGreen Cross Hospital03-04-2024 Instructions* Patient Instructions* Jeanna Youssef, REMY - 05/07/2023 3:13 PM EST ASSESSMENT/PLAN: 1. Exudative age-related macular degeneration of left eye, unspecified stage (HCC) - ICD9: 362.52, ICD10: H35.3220 (primary diagnosis) Referral to retina for further evaluation. 2. Nonexudative age-related macular degeneration, right eye, early dry stage - ICD9: 362.51, ICD10:H35.3111 Continue to monitor. Return as directed documented in this encounterCleveland [id number] History of Present illness Narrative* Jeanna Youssef, REMY - 05/07/2023 3:11 PM EST ASSESSMENT/PLAN: 1. Exudative age-related macular degeneration of left eye, unspecified stage (HCC) - ICD9: 362.52, ICD10: H35.3220 (primary diagnosis) Referral to retina for further evaluation. 2. Nonexudative age-related macular degeneration, right eye, early dry stage - ICD9: 362.51, ICD10:H35.3111 Continue to monitor. Return as directed Jeanna Youssef OD documented in this encounterGreen Cross Hospital01-18-2024 Discharge summary Author Nadia Campos [facility] March 22, 2023 8:29am Note Date/Time March 22, 2023 8 :30am [facility] Physical Therapy [facility] [address] [place] [address]. [address] [place] [address] / REHABILITATION SERVICES DISCHARGE SUMMARY MR#: [id number] Acct: [id number] Name: IVONNE MAYA Rep #: [id number] : 1950 72 From: Nadia Campos PT, Cert. MDT Referring Dr.: OUT OF TOWN DOCTOR Status: REG R Insurance: [employer] INSURANCE Patient Information Patient Information: IVONNE MAYA was seen in my office for initial evaluation on 02/13/23. The following Plan of Care was established for this patient: POC Established Initial Frequency: 2-3x /Week Initial Duration: 4-6 Weeks Anticipated Interventions Patient/Client Instruction: Educate patient on: Condition, Plan of Care and Risk Factors For the Purpose of:: To improve self management Therapeutic Exercise to Include: Strength training, Body mechanics, Postural training, Flexibilty training, Neuromotor development and Dynamic Lumbar Stabilization For the Purpose of:: To decrease pain, To increase ROM, To improve muscle performance and motor function, To increase tolerance to activity/condition/position, To improve ability of physical actions for home/community/work/leisure and To improve gait and locomotor functions Thermo therapy (hot pack): Yes Ultrasound (thermal/non thermal): Yes For the Purpose of:: To decrease pain and To improve nutrient delivery to tissue Last Seen Last Seen: This patient was last seen in our office . Pertinent comments regarding their Physical therapy will appear below: THIS PT REC'D A NOTE STATING PATIENT IS HAVING SURGERY AT THE END OF THE MONTH SO SHE CANCELLED ALL REMAINING PRISCILLA'TS. At this point I will be discontinuing this patient from physical therapy. I would be happy to see this patient again in the future if found appropriate by the physician. Thank you! Nadia Campos, PT, Cert MDT Balance/Gait/Functional tests Balance/Special Test Scores Oswestry Low Back Score: 13 <Electronically signed by Nadia Campos PT Cert. MDT> 03/22/23 0829 CC: JUAN J ACEVEDO; Dr. Malachi Lowry MD ~ SHAYY Signed [facility] Work Phone: 1(327) 215-768304-26-[address] Huerta [facility] June 28, 2022 11:31am Note Date/Time June 28, 2022 8:3 7am [facility] Medical Records Department [address] [place] [address] Instructions for Home/Discharge Instructions 06/28/22 0836 MR#: [id number] Acct: [id number] Name: IVONNE MAYA Rep #:[id number] : 1950 71 From: Herb Huerta MD PCP: Dr. Malachi Lowry MD Status:REG [facility] Discharge Instructions Procedure General Surgery Diet Discharge Diet: Light diet - advance as tolerated (if you have questions about your diet instructions, please talk to you doctor.) Activity Discharge Activity: May Not Drive (for 3-5 days or while taking narcotic pain medicine.) May shower in (days): 1 Lifting Restrictions: 10 pounds Dressing / Incision Call your doctor if your incision/area has: Continuous Slow Oozing, Sudden Increased Bleeding, Increased Pain/ Swelling, Increased Redness and Foul Smelling Discharge Call your doctor if you observe: Fever of 101 or Higher Suture Line Care: Avoid Pulling/Pushing and Avoid Pinching/Bending Additional Dressing/Incision Instructions:: Change or remove dressing in 4 days. Leave steri-strips in place for 1 week. Follow Up Care Please Follow Up With: Herb Huerta MD When: Call [phone] to make an appointment to be seen in about 10 days. Test Results: Test results from this visit will be discussed in further detail at your follow- up appointment, if applicable. Discharge Plan Admission Attending Provider: Herb Huerta Primary Care Provider: Malachi Lowry Discharge Orders/Prescriptions Prescriptions: No Action calcium citrate-vitamin D3 [Citracal + D Maximum] 315 mg-6.25 mcg (250 unit) tablet 1 tab PO DAILY multivitamin Tablet 1 tab PO DAILY duloxetine 60 MG capsule 60 mg PO DAILY potassium chloride 20 mEq tablet extended release 10 meq PO DAILY amlodipine 5 mg tablet 7.5 mg PO DAILY prednisone 5 mg tablet 5 mg PO DAILY Other Ambulatory Orders: 12 Lead EKG (Routine) Timeframe: [id number] Location: None Selected Ordered By: Dr. Herb Huerta Referrals / Follow Up: Malachi Lowry MD [Primary Care Provider] - Disposition Disposition (needs filled in before D/C Order can be placed): Home, Self Care 06/28/22 1131<Electronically signed by Herb Huerta MD>Herb Huerta MD CC: Dr. Malachi Lowry MD ~ Signed [facility] Work Phone: 1(804) 783-175704-26-2023 History and physical note Author Dr. Huerta [facility] June 28, 2022 8:36am Note Date/Time June 28, 2022 8:3 6am [facility] Medical Records Department [address] [place] [address] History & Physical Exam 06/28/22 0835 MR#: [id number] Acct: [id number] Name: IVONNE MAYA Rep #:[id number] : 1950 71 From: Herb Huerta MD PCP: Dr. Malachi Lowry MD Status:[facility] Location: [place] [address] History and Physical Date of Admission: 06/28/22 Visit Reasons:?Gall Bladder Chief Complaint: gall bladder Is patient in pain?: No Allergies Sulfa (Sulfonamide Antibiotics) Allergy (Verified 05/26/22 08:31) Rash Medications duloxetine 60 mg capsule,delayed release 60 mg PO DAILY pain 12/02/18 [History Confirmed 05/26/22] calcium citrate 315 mg calcium-vitamin D3 6.25 mcg (250 unit) tablet (Citracal +Vitamin D Maximum) 1 tab PO DAILY 01/21/20 [History Confirmed 05/26/22] multivitamin 1 tab PO DAILY 01/21/20 [History Confirmed 05/26/22] amlodipine 5 mg tablet 5 mg PO DAILY #30 tabs 01/23/22 [Rx Confirmed 05/26/22] potassium chloride 20 mEq tablet,extended release 10 meq PO BID 02/06/22 [History Confirmed 05/26/22] tramadol 100 mg tablet 100 mg PO BID PRN Pain 04/26/22 [History Confirmed 04/26/22] prednisone 5 mg tablet 5 mg PO DAILY 05/18/22 [History Confirmed 05/26/22] tizanidine 2 mg tablet 2 mg PO HS PRN 05/18/22 [History] PFSH Medical History? Deep vein thrombophlebitis of right leg (1965) Essential hypertension Lymphedema Osteoarthritis Varicose vein of leg Surgical History? Gluteal tendonitis of right buttock (~02/2020) History of arthroscopy of left knee (2000) History of section History of hysterectomy History of lumbar spinal fusion (~02/2021) Family History? Mother CVA (cerebral vascular accident),? Onset Age: 72 HypertensionFather Cancer ?? ? Brain AlcoholismBrother Cancer ?? ? leukemia ?? ? Atrial fibrillation Social History? Smoking Status:? Former smoker second hand exposure:? No alcohol intake:? current alcohol intake frequency: a few times a month Alcohol type: beer substance use type:? does not use caffeine:? Yes Type: coffee Number of servings: 3 HPI HPI HPI: 71-year-old female is being referred by Dr. Malachi Lowry for surgical consultation regarding cholelithiasis.? A written copy of my surgical consult recommendations will return to him.? It is of note that the patient does have a significant amount of musculoskeletal issues.? It is of note that she is on routine prednisone therapy 5 mg daily.? She has had a history of compression fracture of T9.? She has been having some left anterior costochondral margin rib pain. Back on November 25, 2021 the patient had a right upper quadrant ultrasound.? I have personally reviewed those images.? Demonstrates multiple gallstones.? I concur that the gallbladder wall did not appear to be thickened at that time I did not see any fluid.? The common bile duct measured 5.9 millimeters.? Mild diffuse hepatic steatosis. As of May 15, 2022 white blood cell count was 7.9 with a hemoglobin 11.1 hematocrit 34.5 and a platelet count of 315,000.? BUN is 31 with a creatinine of 1.91 and an estimated GFR of 27 consistent with chronic kidney disease stage IV.? Albumin level was 3.2. The patient notes that over the past week or 2 postprandially she has had discomfort in the right upper quadrant.? She states that this is distinctly different to her previous episodes of back pain. Apparently Covid-19 causes significant renal injury to her.? She is being treated by Dr. Renetta Mary mica sizer.? An attempt was made to taper her prednisone from 5 mg daily to 5 mg every other day but by report that failed with a decrease in her GFR.? She is now back on 5 mg daily.? She has repeat blood work ordered for next week. The patient does have thoracic spine compression and was treated with a kyphoplasty with improvement.? She does take tramadol almost on a daily basis because of aches and pains. Her complaint newly is that about 2 to 3 hours postprandially she will get an pressure achy pain in the right subcostal area.? New bright red blood per rectum no melena.? She is not on any anticoagulants.? No fever chills or sweats. She states that she did have a colonoscopy in 2017 and that time it was normal and follow-up at 10 years recommended. ROS General General: Yes weight change and fatigue; No appetite, colon cancer, breast cancer or weakness HEENT HEENT: No difficulty swallowing, eye injury, eye surgery, swollen glands or hoarseness Endo Endocrine: No thyroid disease, diabetes mellitus, thyroid cancer, Hair loss, heat intolerance or cold intolerance Skin Skin: No rash or changing moles Musc Musculoskeletal: Yes back problems, arthritis and gout; No rheumatoid arthritis or joint pain Cardio Cardiovascular: Yes high blood pressure; No murmur, pacemaker, heart disease, atrial fibrillation, heart attack, heart stent, palpitations, shortness of breat with exertion or chest pain Psych Psychiatric: No depression, anxiety or hearing voices Resp Respiratory: No shortness of breath, No sleep apnea, No cough, No COPD, No asthma, No emphysema and No wheezing Gastro Gastrointestinal: Yes abdominal pain, No nausea or vomiting, No diarrhea, Yes constipation, No blood in stool, No acid reflux, No hemorrhoids, No ulcers, Yes gallbladder problem and No black,tarry stools Haile Hematologic: No blood thinners, No blood disorders, No bleeding, Yes anemia and No blood clots Neuro Neurologic: No system reviewed and no additional complaints, except as documented, No as per HPI, No abnormal gait, No abnormal hearing, No abnormal movements, No abnormal speech, No behavioral changes, No burning sensations, No confusion, No convulsions, No disequilibrium, No dizziness, No localized weakness, No frequent falls, No headache(s), No lack of coordination, No loss of vision, No memory loss, No numbness, No other visual disturbances, No radicular pain, No restless legs, No sensory deficit, No syncope, No tingling, No tremor(s), No weakness and No other Exam Const General: cooperative, comfortable and no acute distress Nutritional Appearance: average body habitus [facility] Head: normal to inspection Eyes General: appearance normal, both eyes and all related structures Neck Other: Mild cervical kyphosis noted. Chest Other: Significant thoracic kyphosis noted. Resp Effort & Inspection: normal respiratory effort Auscultation: clear to auscultation bilaterally Cardio Rate: regular rate Rhythm: regular rhythm GI Other: Soft, minimal discomfort right upper quadrant without mass or rebound or guarding, no liver enlargement, evidence of a well-healed infraumbilical midline incision, normal bowel sounds Musc Other: Mild cervical kyphosis Skin Other: Bilateral lower extremities have support hose on.? Claims lymphedema.? Nontender to palpation. Neuro General: patient alert, patient awake and patient oriented x3 Extrem General: no calf tenderness Other: Lower extremity edema noted with support hose in place. Psych Appearance: grossly normal Assessment and Plan Assessment and Plan (1) Cholelithiasis with chronic cholecystitis: ?Status:?Chronic ?Plan: Findings would suggest a possible over the past week or 2 that she is developing more of a symptomatic gallbladder disease.? Findings of postprandial right upper quadrant discomfort would be consistent with some chronic cholecystitis cholelithiasis.? Based upon ultrasound she does have multiple small stones. With her present I have discussed technique for laparoscopic cholecystectomy with selective cholangiography.? We have extensively discussed the technique, benefit, risk, alternatives.? No guarantees of success have been offered. Of concern is that the patient was on a prednisone taper but then had decreased GFR requiring the doses to be increased again.? This is under the care of Dr. Renetta Mary.? She is currently stage IV disease. I did have the opportunity contact Dr. Rneetta Mary to discuss the patient's acute interstitial nephritis.? It is felt that she likely will need to remain on low dosing of steroids.? Dr. Renetta Mary's goal at the moment is to try to keep her off of dialysis but states that the COVID/flu assault was on top of chronic disease as well.? She does not believe at this time that she will be able to completely get her off of steroid therapy. The patient has laboratory scheduled for next week As I discussed extensively with the patient and her if her laboratory remained stable on the slightly increased dosing of prednisone from 5 mg every other day to 5 mg daily then the patient can decide whether she wants to schedule for a elective laparoscopic cholecystectomy with selective cholangiography.? Stress dose steroids would be provided. She has had an opportunity to ask and have questions answered.? We will proceed at her discretion.? I appreciate the option of assisting with her surgical care. Copy: Dr. Malachi Lowry and Dr. Renetta Huerta M.D., F.A.C.S. I have examined the patient and the H&P has been reviewed. There are no clinical changes since date of exam. Herb Huerta M.D., F.A.C.S. 06/28/22 0836 <Electronically signed by Herb Huerta MD> Cosigner Signature (if applicable): CC: Dr. Malachi Lowry MD; Dr. Herb Huerta MD~ Signed [facility] Work Phone: [phone]) 506-621904-26-2023 Procedure [facility] 06-21-2022 Instructions* Patient Instructions* Kyra Youssef II, OD - 06/21/2022 5:02 PM EDT Assessment and Plan H35.363 Macular drusen, bilateral (primary encounter diagnosis) H35.3131 Nonexudative age-related macular degeneration, bilateral, early dry stage Comment: AREDS 2 supplementation stopped by mica sizer but still taking multivitamin. Warnings regarding the [...] and plan as stated above and agree withall of its relevant components. Kyra Youssef II, OD documented in this encounterGreen Cross Hospital04-19-2023 History of Present illness Narrative* Kyra Youssef II, OD - 06/21/2022 4:59 PM EDT Assessment and Plan H35.363 Macular drusen, bilateral (primary encounter diagnosis) H35.3131 Nonexudative age-related macular degeneration, bilateral, early dry stage Comment: AREDS 2 supplementation stopped by mica sizer but still taking multivitamin. Warnings regarding the [...] and plan as stated above and agree withall of its relevant components. Kyra Youssef II, REMY documented in this encounterGreen Cross Hospital02-22-[address] Shaw [facility] April 26, 2022 10:26pm Note Date/Time April 26, 2022 10:16pm [facility] Medical Records Department [address] [place] [address] Emergency Department Summary 04/26/22 MR#: [id number] Acct: [id number] Name: IVONNE MAYA Rep #:[id number] : 1950 71 From: Keara Shaw MD PCP: Dr. Malachi Lowry MD Status:REG ER Location: ED HPI History of Present Illness Chief Complaint: Back Narrative Narrative: 71-year-old female past medical history of hypertension, osteopenia, sees pain management for T9 vertebral fracture. She states that she had kyphoplasty approximately [address] Lo. On Sunday, she was having pain, and shecalled the RN who said that [place], but her tramadol was helping. She takes 100 mg twice a day as needed for pain. Over the last few days, she developed bilateral leg pain and low back pain. She denies fevers or chills. No saddle anesthesia, no loss of bowel or bladder/sensation of urination. She presents because of the new pain in her low back radiating down the back of both of her legs. She states that her muscles feel tight. Pain is worse with movement. [facility] Medical History Deep vein thrombophlebitis of right leg (1965) Essential hypertension Lymphedema Osteoarthritis Varicose vein of leg Home Medications duloxetine 60 mg capsule,delayed release 60 mg PO DAILY pain 12/02/18 [History Last Taken Unknown] calcium citrate 315 mg calcium-vitamin D3 6.25 mcg (250 unit) tablet (Citracal +Vitamin D Maximum) 1 tab PO DAILY 01/21/20 [History Last Taken Unknown] multivitamin 1 tab PO DAILY 01/21/20 [History Last Taken Unknown] amlodipine 5 mg tablet 5 mg PO DAILY #30 tabs 01/23/22 [Rx Last Taken Unknown] potassium chloride 20 mEq tablet,extended release 10 meq PO BID 02/06/22 [History Last Taken Unknown] prednisone 5 mg tablet 5 mg PO QODAY 04/26/22 [History Last Taken Unknown] tramadol 100 mg tablet 100 mg PO BID PRN Pain 04/26/22 [History Last Taken Unknown] Allergy/AdvReac Type Severity Reaction Status Date / Time Sulfa (Sulfonamide Allergy Rash Verified 04/26/22 20:40 Antibiotics) Family History Mother CVA (cerebral vascular accident), Onset Age: 72 Hypertension Father Cancer Brain Alcoholism Brother Cancer leukemia Atrial fibrillation Surgical History Gluteal tendonitis of right buttock (~02/2020) History of arthroscopy of left knee (2000) History of section History of hysterectomy History of lumbar spinal fusion (~02/2021) Social History Smoking Status: Former smoker second hand exposure: No alcohol intake: current alcohol intake frequency: a few times a month Alcohol type: beer substance use type: does not use caffeine: Yes Type: coffee Number of servings: 3 ROS ROS ED ROS Narrative Constitutional: No fever, no chills. HEENT: No sore throat. No neck pain. No loss of vision. No rhinorrhea. Cardiovascular: No chest pain. No palpitations. No pedal edema. Respiratory: No cough, no shortness of breath. Abdominal: No abdominal pain. No nausea. No vomiting. Genitourinary: No dysuria. No hematuria. Musculoskeletal: No myalgias. No arthralgias. Low back pain. Bilateral posterior leg pain. Neurologic: No headaches. No dizziness. No lightheadedness. No saddle anesthesia. No loss of bowel or bladder without sensation. Skin: No rash. No change in color. Psychiatric: No depression. No anxiety. EXAM Physical Exam Narrative Exam Narrative: Afebrile. Vital signs noted. HEENT: Normocephalic. Atraumatic. PERRL, EOMI. Neck soft and supple. No pointtenderness or step off. Cardiovascular: Regular rate and rhythm. No murmurs, rubs, or gallops appreciated. Respiratory: No tachypnea. Lungs clear to auscultation bilaterally. Gastrointestinal: Abdomen soft, nontender, with normoactive bowel sounds. No rebound or guarding. Neurological: Awake. Alert. Nonfocal, nonlateralizing. DTRs equal and symmetric. No step-off. Skin: No rash. Normal color. No pallor. Musculoskeletal: No pedal edema. Full range of motion extremities. Const Vital Signs: 04/26/22 20:37 04/26/22 20:58 Temperature 98.2 F Temperature Source Temporal Pulse Rate 92 87 Respiratory Rate 18 16 Blood Pressure 137/70 H 134/63 H Blood Pressure Mean 92 86 Pulse Ox 98 98 Oxygen Delivery Method Room Air Room Air MDM MDM MDM Narrative Medical decision making narrative: I do feel that the area above her low back at T9 where she had her kyphoplasty is too high to be causing symptoms of lumbar radiculopathy down both her legs. She does not have fever or chills so I am not concerned about abscess. She is able to move both her legs so I do not think that she has having spinal cord compression. CT was obtained of the lumbar spine to look for a new fracture. She did state that she had history of fusion approximately a year ago by a doctor at the [facility]. I did consider offering her narcotic pain medications, but do not want to break her pain contract. However, she states that she has not urine tested. In the past, I have been told by other pain management doctors that with chronic pain, that if it was felt that they needed 1 dose of narcotic pain medication, that they could receive it. She will be given morphine 6 mg intramuscularly. I reviewed the CT results and there is no evidence for acute fracture or bony pathology, and there are postsurgical changes at L3-L4 and L4-L5, but there is spinal stenosis noted at L3-L4, L4-L5, and L5- S1 secondary to disc disease and bony hypertrophy. At this point in time, she can follow-up with her pain management provider, and [facility] for possible outpatient [facility] and further treatment for her spinal stenosis and lumbar radiculopathy. Disposition is discharged home in stable condition. Radiography Diagnostic Testing: Clinical Impression(s) from Imaging Studies Lumbar Spine CT 04/26/22 21:35 IMPRESSION: No evidence for acute fracture or bony pathology. Postsurgical changes at L3-4 and L4-5. Apparent spinal stenosis at L3-4, L4-5 and L5-S1 secondary to disc disease and bony hypertrophy. This may be further assessed with MRI if clinically warranted Electronically Signed: Valeriy Valero MD at 22:12 EST , Discharge Plan Triage Chief Complaint: Back ED Provider: Keara Shaw Dx/Rx/DC Orders Clinical Impression: Bilateral lumbar radiculopathy, Spinal stenosis Instructions: Low Back Leg Pain Causes, ED Sciatica Prescriptions: No Action calcium citrate-vitamin D3 [Citracal + D Maximum] 315 mg-6.25 mcg (250 unit) tablet 1 tab PO DAILY multivitamin Tablet 1 tab PO DAILY duloxetine 60 MG capsule 60 mg PO DAILY potassium chloride 20 mEq tablet extended release 10 meq PO BID prednisone 5 mg Tablet 5 mg PO QODAY tramadol 100 mg Tablet 100 mg PO BID PRN (Reason: Pain) amlodipine 5 mg tablet 5 mg PO DAILY Qty: 30 11RF Primary Care Provider: Malachi Lowry Referrals: Bret Lo MD [Med Staff - Active Staff] - As soon as possible Malachi Lowry MD [Primary Care Provider] - Activity Restrictions/Additional Instructions: Follow-up with your spine surgeon at the [facility] as soon as possible. You have spinal stenosis at multiple levels in your lumbar spine. Tell your pain management doctor that you did receive 1 dose of morphine in the emergency department. Disposition Disposition: Home, Self Care What to do if you have Problems For any increased pain, shortness of breath, bleeding, nausea or vomiting, chestpain, or any unexpected problems, contact your Primary Care Provider. Call [facility] ([phone]) or report to the closest Emergency Room. Call 911 if necessary. 04/26/222225 <Electronically signed by Keara Shaw MD> Cosigner Signature (if applicable): CC: Dr. Bret Lo MD; Dr. Malachi Lowry MD ~ Signed [facility] Work Phone: Evaluation noteThere may be information available, but it has not been provided by the sender.[facility] Work Phone: Evaluation noteNo assessment information available [facility] Work Phone: Evaluation note* Diagnosis Onset Date Resolution Status Dyspnea acute Essential hypertension chron [facility] Work Phone: Evaluation note* Diagnosis Onset Date Resolution Status Essential hypertension chron [facility] Work Phone: Evaluation note* Diagnosis Onset Date Resolution Status Essential hypertension chron ic T9 vertebral fracture acute [facility] Work Phone: Evaluation note* Diagnosis Onset Date Resolution Status T9 vertebral fracture acute [facility] Work Phone: Evaluation note* Diagnosis Onset Date Resolution Status T9 vertebral fracture acute Cholelithiasis with chronic cholecystitis [facility] Work Phone: Evaluation note* Diagnosis Macular drusen, bilateral- Primary Nonexudative age-related macular degeneration, bilateral, early dry stage Pseudophakia, both eyes Lens replaced by other means Esotropia, alternating, with noncomitancy Alternating esotropia with other noncomitancies Regular astigmatism of both eyes Regular astigmatism Myopia, bilateral [facility] Diagnosis Onset Date Resolution Status T9 vertebral fracture acute Cholelithiasis with chronic cholecystitis chronic Cholelithiasis with chronic cholecystitis [facility] Work Phone: Evaluation note* Diagnosis Onset Date Resolution Status Cholelithiasis with chronic cholecystitis chronic Cholelithiasis with chronic cholecystitis chronic Chest pain acute Essential hypertension [facility] Work Phone: Evaluation note* Diagnosis Onset Date Resolution Status Chest pain acute Essential hypertension chron Chest pain acute Essential hypertension [facility] Work Phone: Evaluation note* Diagnosis Onset Date Resolution Status Chest pain acute Essential hypertension chron ic Fatigue acute Essential hypertension [facility] Work Phone: Evaluation note* Diagnosis Onset Date Resolution Status Fatigue acute Essential hypertension [facility] Work Phone: Evaluation note* Diagnosis Exudative age-related macular degeneration of left eye, unspecified stage (HCC)- Primary Nonexudative age-related macular degeneration, right eye, early dry stage documented in this encounter [facility] note* Diagnosis Exudative age-related macular degeneration of left eye with active choroidal neovascularization (HCC)- Primary Intermediate stage nonexudative age-related macular degeneration of right eye documented in this encounter [facility] note* Diagnosis 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 documented in this encounter [facility] note* Diagnosis 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 documented in this encounter [facility] note* Diagnosis 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 documented in this encounter [facility] note* Diagnosis 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 documented in this encounter [facility] note* Diagnosis 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 documented in this encounter [facility] note* Diagnosis 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 [facility] 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 [facility] Diagnosis Exudative age-related macular degeneration of left eye with active choroidal neovascularization (HCC)- Primary Intermediate stage nonexudative age-related macular degeneration of right eye [facility] Diagnosis 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 MAYA [...] range of motion/joint mobility and strength. [facility] Work Phone: History of Present illness Narrative* Ms. MYAA presents with signs and symptoms consistent with [...] of motion/joint mobility, strength and transfers. [facility] Work Phone: History of Present illness [...] flexor and ADD stretches this date. [facility] [employer] [facility] Work Phone: History of Present illness NarrativePatient [...] additions to her program without c/o. [facility] [employer] [facility] Work Phone: History of Present illness NarrativePatient identified by name and date of . Patient presented with pelvic malalignment that responded well to MET. She was able to progress with kegels and reviewed progression of HEP. Reviewed sleeping positions, she demonstrated good understanding. She presented with tension in gluts that responded well to STW. [facility] Work Phone: History of Present illness NarrativePatient identified by name and date of . Patient presented with pelvic malalignment that responded well to STW. She demonstrated good understanding with kegels and review of HEP. She presented with tension in hip flexors, gluts, and IT band with STW. [facility] Work Phone: History of Present illness NarrativePatient identified by name and date of . Patient presented with pelvic malalignment that responded well to MET. She was able to progress with kegels and reviewed progression of HEP. Reviewed sleeping positions, she demonstrated good understanding. She presented with tension in gluts that responded well to STW.[facility] Work Phone: Hisbclc of Present illness Narrative* S/P lumbar fusion [...] range of motion/joint mobility, strength and transfers. [facility] Work Phone: history of Present illness Narrative* Patient identity confirmed today with name/. the patient motions to the [facility] area as the presentarea of sx;. * Clinical Presentation: Stable and/or uncomplicated characteristics. * Level of Complexity: low * Problem List: activity limitations, ADLs/IADLs/self care skills, decreased functional level, decreased knowledge of HEP, decreased knowledge of precautions, gait/locomotion, pain, range of motion/joint mobility, strength and transfers. [facility] Work Phone: History of Present illness Narrative* Patient motivated to progress. Added ex's for core strengthening/stability with good tolerance and response. Patient voices compliance with current HEP. * Response to treatment: decreased pain, improved flexibility, improved posture and improved knowledge and understanding of condition. * Patient was able to complete today's treatment with some difficulty. [facility] Work Phone: Hisunae of Present illness Narrative* Patient identity confirmed today with name/. the patient seems to be walking more upright today;see goals; good ADL and strength gains; added to HEP and given handout. * Response to treatment: decreased pain, improved flexibility, improved posture and improved knowledge and understanding of condition. * Patient was able to complete today's treatment with some difficulty. [facility] Work Phone: Hospital Discharge instructionsAmbulatory Orders* Pain Management Location: None Selected [facility] Work Phone: Hospital Discharge instructions Additional Instructions Follow-up with your spine surgeon at the [facility] as soon as possible. You have spinal stenosis at multiple levels in your lumbar spine. Tell your pain management doctor that you did receive 1 dose of morphine in the emergency department.[facility] Work Phone: Instructions* Instruction Description Start Date Patient advised to follow-up with Primary Care Physician for BMI management. [facility] Work Phone: Reason for referral (narrative)No reason for referral information availableWTr[facility] Work Phone: Reason for visit Narrative* Initial Evaluation . SI Joint Pain and Left Hip Pain. * Referred by: Abdirahman Toribio [facility] Work Phone: reason for visit Narrative* Initial Evaluation . SI Joint Pain and Left Hip Pain. * Referred by: Abdirahman Toribio. [facility] Work Phone: Reason for visit Narrative* Initial Evaluation . lumbar stenosis. * Referred by: Laura Grant MD [facility] Work Phone: Reason for visit Narrative* Initial Evaluation . lumbar stenosis. * Referred by: Laura Grant MD [facility] Work Phone: Summary Purpose Family History No Family History Records Found Relationship Condition Age at Onset Recorded Date/T santiago mother Cerebrovascular accident (CVA) 72 Hypertension Unknown father Malignant neoplasm Unknown Alcoholism Unknown brother Malignant neoplasm Unknown Atrial fibrillation Unknown Advance Directives No Advanced Directives Records FoundDocuments on File Type Date Recorded Patient Hospital Pharmacy Director Expl anation Advance Directives and Living Will Power of Clamp Remover Advance Directive Response Recorded Date/ Time Living Will Yes December 02, 2018 12:20pm Power of Clamp Remover Yes November 12:20pm Advance Directive Response Recorded Date/ Time Living Will Yes December 02, 2018 11:20am Power of Clamp Remover Yes November 11:20am Advance Directive Response Recorded Date/ Time Living Will Yes April 07 10:05am Power of Clamp Remover Yes April 07, 2022 10:05am Advance Directive Response Recorded Date/ Time Name of Medical Power of Clamp Remover KRISTIN MAYA April 26, 2022 8:40pm Living Will Yes April 26 023 8:40pm Power of Clamp Remover Yes April 26, 2022 8:40pm Advance Directive Response Recorded Date/ Time Name of Medical Power of Clamp Remover KRISTIN MAYA April 26, 2022 9:40pm Living Will Yes April 26 023 9:40pm Power of Clamp Remover Yes April 26, 2022 9:40pm Advance Directive Response Recorded Date/ Time Name of Medical Power of Clamp Remover KRISTIN MAYA April 26, 2022 9:40pm Living Will Yes June 21, 2022 1:10pm Power of Clamp Remover Yes June 21 1:10pm Advance Directive Response Recorded Date/ Time Name of Medical Power of Clamp Remover KRISTIN MAYA April 26, 2022 9:40pm Name of Medical Power of Clamp Remover - KRISTIN June 21, 2022 1:10pm Living Will Yes June 21, 2022 1:10pm Power of Clamp Remover Yes June 21 1:10pm Advance Directive Response Recorded Date/ Time Living Will Yes June 21, 2022 1:10pm Power of Clamp Remover Yes June 21 1:10pm Name of Medical Power of Clamp Remover - KRISTIN June 21, 2022 1:10pm Advance Directive Response Recorded Date/ Time Living Will Yes June 21, 2022 1:10pm Power of Clamp Remover Yes June 21 1:10pm Advance Directive Response Recorded Date/ Time Living Will Yes June 21, 2022 12:10pm Power of Clamp Remover Yes June 21 12:10pm Discharge Instructions * Instructions* Lianne Steele RN - 10/06/2019 If you have any questions or problems following your test, please call: [phone] (7AM - 4PM) or after 4PM call [phone] and ask for the angiography radiologist medical consultant Learning About a Hip Bursa Injection What is a hip bursa injection? A bursa is a small sac of fluid that cushions an area between tendons and bones. The bursa on the outer side of the hip bone is called the trochanteric (say [id number]) bursa. Sometimes it can become swollen and [...] Where can you learn more? Go to [email or web address] and sign in to your [employer] account. Enter J909 in the Search Health Information box to learn more about Learning About a Hip Bursa Injection. If you do not have an account, please click on the Sign Up Now link. Current as of: May 05, 2019 Content Version: 12.5 [employer]. Care instructions adapted under license by [employer]. If you have questions about a medical condition or this instruction, always ask your healthcare professional. [employer] disclaims any warranty or liability for your use of this information. documented in this encounter History of Present Illness * Lianne Steele RN - 10/06/2019 10:00 AM EDT Patient arrived to CT department from home for left SI joint injection. Dr. Chung in to discuss procedure with patient and informed consent obtained. Patient assisted to CT table and place prone. cardiac monitor on. 40 mg Kenalog and 1.5 cc Bupivacaine injected into left SI joint. Bandaid applied to site. Patient tolerated procedure well. . documented in this encounter Chief Complaint Chief Complaint Description Start Date lower back post L3-4 L4-5 La teral Lumbar Interbody Fusion on 03/01/2021 Preliminary chief co mplaint data, not yet signed by the author as of Chief Complaint and Reason for Visit Chief Complaint OSTEO SCREENING Chief Complaint RUQ PAIN DIZZINESS Chief Complaint RUQ PAIN DIZZINESS last seen 2019, overdue for OV INT LABS E ORDER Reason for Visit Dyspnea Essential hypertension Chief Complaint RUQ PAIN DIZZINESS last seen 2019, overdue for OV INT LABS E ORDER Reason for Visit Essential hypertensi on Chief Complaint RUQ PAIN DIZZINESS last seen 2019, overdue for OV INT LABS E ORDER ACUTE RENAL FAILURE Reason for Visit Essential hypertensi on Chief Complaint RUQ PAIN DIZZINESS last seen 2019, overdue for OV INT LABS E ORDER ACUTE RENAL FAILURE [facility] DYSPNEA/ABN EKG [facility] Cough Reason for Visit Essential hypertensi on Chief Complaint RUQ PAIN DIZZINESS last seen 2019, overdue for OV INT LABS E ORDER ACUTE RENAL FAILURE walters DYSPNEA/ABN EKG [facility] Cough S/O LABS TILL 03/20/22 Reason for Visit Essential hypertensi on Chief Complaint DIZZINESS last seen 2019, overdue for OV INT LABS E ORDER ACUTE RENAL FAILURE walters DYSPNEA/ABN EKG walters Cough S/O LABS TILL 03/20/22 Reason for Visit Essential hypertensi on Chief Complaint last seen 2019, over due for OV INT LABS E ORDER ACUTE RENAL FAILURE walters DYSPNEA/ABN EKG walters Cough S/O LABS TILL 03/20/22 D-DIMER HIGH LEFT FLANK PAIN COMPRESSION FRACTURE LUMBER SPINE Reason for Visit Essential hypertensi on T9 vertebral fracture Chief Complaint last seen 2019, over due for OV INT LABS E ORDER ACUTE RENAL FAILURE walters DYSPNEA/ABN EKG [facility] Cough S/O LABS TILL 03/20/22 D-DIMER HIGH LEFT FLANK PAIN S/O LABS TILL 03/20/22 COMPRESSION FRACTURE LUMBER SPINE Reason for Visit Essential hypertensi on T9 vertebral fracture Chief Complaint last seen 2019, over due for OV INT LABS E ORDER ACUTE RENAL FAILURE walters DYSPNEA/ABN EKG walters Cough S/O LABS TILL 03/20/22 D-DIMER HIGH LEFT FLANK PAIN S/O LABS TILL 03/20/22 COMPRESSION FRACTURE LUMBER SPINE S/O LABS TILL 03/20/22 BACK PAIN Reason for Visit Essential hypertensi on T9 vertebral fracture Chief Complaint E ORDER ACUTE RENAL FAILURE walters DYSPNEA/ABN EKG walters Cough S/O LABS TILL 03/20/22 D-DIMER HIGH LEFT FLANK PAIN S/O LABS TILL 03/20/22 COMPRESSION FRACTURE LUMBER SPINE S/O LABS TILL 03/20/22 BACK PAIN DUE ON OR AROUND DATE LISTED Reason for Visit T9 vertebral fractur e Chief Complaint ACUTE RENAL FAILURE walters DYSPNEA/ABN EKG walters Cough S/O LABS TILL 03/20/22 D-DIMER HIGH LEFT FLANK PAIN S/O LABS TILL 03/20/22 COMPRESSION FRACTURE LUMBER SPINE S/O LABS TILL 03/20/22 BACK PAIN DUE ON OR AROUND DATE LISTED Gall Bladder L SPONDYLOSIS/RX HERE Reason for Visit T9 vertebral fractur e Cholelithiasis with chronic cholecystitis Chief Complaint S/O LABS TILL 3 D-DIMER HIGH LEFT FLANK PAIN S/O LABS TILL 03/20/22 COMPRESSION FRACTURE LUMBER SPINE S/O LABS TILL 03/20/22 BACK PAIN DUE ON OR AROUND DATE LISTED Gall Bladder SCREENING DUE ON OR AROUND DATE LISTED URINE SAMPLE L SPONDYLOSIS/RX HERE DUE ON OR AROUND 07/03/22 PER ORDER Reason for Visit T9 vertebral fractur e Cholelithiasis with chronic cholecystitis Chief Complaint S/O LABS TILL 3 D-DIMER HIGH LEFT FLANK PAIN S/O LABS TILL 03/20/22 COMPRESSION FRACTURE LUMBER SPINE S/O LABS TILL 03/20/22 BACK PAIN DUE ON OR AROUND DATE LISTED Gall Bladder SCREENING DUE ON OR AROUND DATE LISTED URINE SAMPLE L SPONDYLOSIS/RX HERE LAP MARYAN W IOC LAP MARYAN W IOC Reason for Visit T9 vertebral fractur e Cholelithiasis with chronic cholecystitis Chief Complaint D-DIMER HIGH LEFT FLANK PAIN S/O LABS TILL 03/20/22 COMPRESSION FRACTURE LUMBER SPINE S/O LABS TILL 03/20/22 BACK PAIN DUE ON OR AROUND DATE LISTED Gall Bladder SCREENING DUE ON OR AROUND DATE LISTED URINE SAMPLE PREOP L SPONDYLOSIS/RX HERE LAP MARYAN W IOC LAP MARYAN W IOC GULLBLADDER REMOVAL Reason for Visit T9 vertebral fractur e Cholelithiasis with chronic cholecystitis Cholelithiasis with chronic cholecystitis Chief Complaint S/O LABS TILL 3 BACK PAIN DUE ON OR AROUND DATE LISTED Gall Bladder SCREENING DUE ON OR AROUND DATE LISTED URINE SAMPLE PREOP LAP MARYAN W IOC LAP MARYAN W IOC GULLBLADDER REMOVAL L SPONDYLOSIS/RX HERE Chest pain episode L.Lorson S/O LABS TILL 03/20/22 OSTEO Reason for Visit Cholelithiasis with chronic cholecystitis Cholelithiasis with chronic cholecystitis Chest pain Essential hypertension Chief Complaint BACK PAIN DUE ON OR AROUND DATE LISTED Gall Bladder SCREENING DUE ON OR AROUND DATE LISTED URINE SAMPLE PREOP LAP MARYAN W IOC LAP MARYAN W IOC GULLBLADDER REMOVAL L SPONDYLOSIS/RX HERE Chest pain episode L.[place]orson S/O LABS TILL 03/20/22 OSTEO Iron deficiency anemia, unspecified Reason for Visit Cholelithiasis with chronic cholecystitis Cholelithiasis with chronic cholecystitis Chest pain Essential hypertension Chief Complaint DUE ON OR AROUND MARCOS E LISTED Gall Bladder SCREENING DUE ON OR AROUND DATE LISTED URINE SAMPLE PREOP LAP MARYAN W IOC LAP MARYAN W IOC GULLBLADDER REMOVAL L SPONDYLOSIS/RX HERE Chest pain episode L.Lorson S/O LABS TILL 03/20/22 OSTEO Iron deficiency anemia, unspecified Reason for Visit Cholelithiasis with chronic cholecystitis Cholelithiasis with chronic cholecystitis Chest pain Essential hypertension Chief Complaint Chest pain episode L .Lorson S/O LABS TILL 03/20/22 OSTEO Iron deficiency anemia, unspecified 3 M FU Reason for Visit Chest pain Essential hypertension Chest pain Essential hypertension Chief Complaint Iron deficiency anem ia, unspecified 3 M FU 6-8 w fu Reason for Visit Chest pain Essential hypertension Fatigue Essential hypertension Chief Complaint 3 M FU 6-8 w fu NEED ORDER FOR DR MARY Reason for Visit Chest pain Essential hypertension Fatigue Essential hypertension Chief Complaint 6-8 w fu NEED ORDER FOR DR MARY BACK PAIN. RX HERE DUE ON OR AROUND DATE LISTED Reason for Visit Fatigue Essential hypertension Chief Complaint BACK PAIN. RX HERE DUE ON OR AROUND DATE LISTED Chief Complaint DUE ON OR AROUND MARCOS E LISTED RENAL Chief Complaint Admit Date PREOP, WALTERS February 19, 2024 7:03am PREOP, WALTERS February 19, 2024 5:52pm DIZZINESS February 28, 2024 5:44pm LUMBAR SPINE April 11, 2024 8 :53am DR ONEYDA TO FAX April 14, 2024 10:16am hip pain- RIGHT June 02, 2024 11: 11am OSTEO June 04, 2024 10:4 6am Reason for Visit Admit Date Cervical myelopathy April 11, 2024 8 :53am History of lumbar fusion April 11, 2 025 8:53am Lumbar scoliosis April 11, 2024 8 :53am Osteopenia determined by x-ray April 11, 2024 8:53am Spinal stenosis of lumbar re gion with neurogenic claudication April 11, 2024 8:53am Chief Complaint Admit Date LUMBAR SPINE April 11, 2024 8 :53am VERTIGO,DR TO FAX April 14, 2024 10:16am hip pain- RIGHT June 02, 2024 11: 11am OSTEO June 04, 2024 10:4 6am Chief Complaint Admit Date hip pain- RIGHT June 02, 2024 11: 11am OSTEO June 04, 2024 10:4 6am CERVICAL SPINE July 11, 2024 8:36am room 1 pt can leave after x-ray July 11, 2024 9:10am RT HIP, RX HERE August 15, 2024 12:0 0pm Reason for Visit Admit Date Cervical myelopathy July 11, 2024 8:36am Osteopenia determined by x-ray July 11, 2024 8:36am Right hip pain July 11, 2024 8:36am Spinal stenosis of lumbar region with ne urogenic claudication July 11, 2024 8:36am Chief Complaint Admit Date hip pain- RIGHT June 02, 2024 11: 11am OSTEO June 04, 2024 10:4 6am CERVICAL SPINE July 11, 2024 8:36am room 1 pt can leave after x-ray July 11, 2024 9:10am RT HIP, RX HERE August 15, 2024 12:0 0pm 1 Y FU September 12, 2024 9:28 am Reason for Visit Admit Date Cervical myelopathy July 11, 2024 8:36am Osteopenia determined by x-ray July 11, 2024 8:36am Right hip pain July 11, 2024 8:36am Spinal stenosis of lumbar region with ne urogenic claudication July 11, 2024 8:36am Cerebellar infarct September 12, 2024 9:28 am Dyspnea on exertion September 12, 2024 9:28 am Preop cardiovascular exam September 12 9:28am Essential hypertension September 12, 2024 9 :28am Additional Source Comments INFORMATION SOURCE (unrecogn ized section and content) DATE CREATED AUTHOR 08/28/2017 [facility] DATE CREATED AUTHOR AUTHOR'S ORGANIZ ATION 10/08/2019 [facility] DATE CREATED AUTHOR AUTHOR'S ORGANIZ ATION 10/14/2021 [employer] DATE CREATED AUTHOR AUTHOR'S ORGANIZ ATION 03/29/2022 [facility] DATE CREATED AUTHOR AUTHOR'S ORGANIZ ATION 08/08/2024 [facility] DATE CREATED AUTHOR AUTHOR'S ORGANIZ ATION 09/15/2024 [facility] Reason for Visit (unrecogniz ed section and content) Reason Comments Macular Degeneration Follow Up Nonexudat hannah Right Eye, Exudative Left Eye Specialty Diagnoses / Procedures Referred By Contact Referred To Contact Ophthalmology / OPHTHALMOLOGY Diagnoses Exudative age-related macular degeneration, left eye, with active choroidal neovascularization STI eylea OS/ OCT Procedures AFLIBERCEPT INJECTION Eylea 2mg left eye every 4 wks for one year Keara Choudhury MD, PhD [address] [place] [address] Keara Choudhury MD, PhD [address] [place] [address] Referral ID Status Reason Start Date Expiration Date V isits Requested Visits Authorized [id number] Authorized 09/20/2023 09/18/2024 12 12 Reason Comments Exudative Macular Degeneration Follow Up Left eye Specialty Diagnoses / Procedures Referred By Contac t Referred To Contact Ophthalmology / OPHTHALMOLOGY Diagnoses Exudative age-related macular degeneration, left eye, with active choroidal neovascularization STI CASSIE Procedures [place] BEVACIZUMAB INJECTION AVASTIN 1.25 MG LEFT EYE EVERY 4 WKS FOR ONE YEAR Keara Choudhury MD, PhD [address] [place] [id number] Keara Choudhury MD, PhD [address] [place] [address] Referral ID Status Reason Start Date Expiration Date V isits Requested Visits Authorized [id number] Authorized 06/07/2023 03/04/2024 99 99 Reason For Visit Description Start Date Postop - 1st visit Preliminary reason f or visit data, not yet signed by the author as of lower back post L3-4 L4-5 La teral Lumbar Interbody Fusion on 03/01/2021 Reason Comments Macular Degeneration Evaluation Reason Comments Wavy vision- left eye Reason Comments Macular Degeneration Evaluation Nonexuda tive Right Eye, Exudative Left Eye Reason Comments Exudative Macular Degeneration Follow Up Left eye Nonexudative Macular Degeneration Follow Up Right eye Reason Comments Exudative Macular Degeneration Follow Up Left eye Blurred Vision Left Eye Still wavy but n ot as foggy Non-exudative ARMD Right eye Reason Comments Exudative Macular Degeneration Follow Up Left eye Reason Comments Refraction Reason Comments Patient Update Reason Comments Exudative Age related macular degenerati on left eye intermediate nonexudative Age related ma cular degeneration Specialty Diagnoses / Procedures Referred By Contact Referred To Contact Ophthalmology / OPHTHALMOLOGY Diagnoses Exudative age-related macular degeneration, left eye, with active choroidal neovascularization STI eylea OS/ OCT Procedures INJ FARICIMAB-SVOA 0.1 MG Vabysmo 6mg left eye every 4 wks for one year Keara Choudhury MD, PhD [address] [place] [address] Phone: tel: Keara Choudhury MD, PhD [address] [place] [address] Phone: tel: fax: Referral ID Status Reason Start Date Expiration Date V isits Requested Visits Authorized [id number] Authorized 06/05/2024 05/05/2025 12 12 Reason Comments Exudative Age related macular degenerati on with atrophy left eye intermediate nonexudative Age related ma cular degeneration Right eye Specialty Diagnoses / Procedures Referred By Contact Referred To Contact Ophthalmology / OPHTHALMOLOGY Diagnoses Exudative age-related macular degeneration, left eye, with active choroidal neovascularization (HCC) STI eylea OS/ OCT Procedures INJ FARICIMAB-SVOA 0.1 MG Vabysmo 6mg left eye every 4 wks for one year Keara Choudhury MD, PhD [address] [place] [address] Phone: tel:[phone] Keara Choudhury MD, PhD [address] [place] [address] Phone: tel:[phone] fax:[phone] Goals (unrecognized section and content) Goals may be documented in a n alternate sectionGoals may be documented in an alternate sectionGoals may be documented in an alternate sectionGoals may be documented in an alternate sectionGoals may be documented in an alternate sectionGoals may be documented in an alternate sectionGoals may be documented in an alternate sectionGoals may be documented in an alternate sectionGoals may be documented in an alternate sectionGoals may be documented in an alternate sectionGoals may be documented in an alternate sectionGoals may be documented in an alternate sectionGoals may be documented in an alternate sectionGoals may be documented in an alternate sectionGoals may be documented in an alternate sectionGoals may be documented in an alternate sectionGoals may be documented in an alternate sectionGoals may be documented in an alternate sectionGoals may be documented in an alternate sectionGoals may be documented in an alternate sectionGoals may be documented in an alternate sectionGoals may be documented in an alternate sectionGoals may be documented in an alternate sectionGoals may be documented in an alternate sectionGoals may be documented in an alternate sectionGoals may be documented in an alternate sectionGoals may be documented in an alternate sectionGoals may be documented in an alternate sectionGoals may be documented in an alternate sectionGoals may be documented in an alternate sectionGoals may be documented in an alternate sectionGoals may be documented in an alternate sectionGoals may be documented in an alternate sectionGoals may be documented in an alternate section Care Teams (unrecognized sec tion and content) Team Status: Active Member Role Status Dates Dr. Malachi Lawton MD Family Provider Active Dr. Malachi Lowry MD Primary Care Provider Active Team Status: Inactive Member Role Status Dates Dr. Malachi Lowry MD Primary Care Provider, Referrin g Provider Active Dr. Que Mccrary MD Attending Provider Active Team Status: Active Member Role Status Dates Dr. Malachi Lowry MD Primary Care Provider Active Dr. Que Mccrary MD Attending Provider, Referring Provider, Other Provider Active Team Status: Inactive Member Role Status Dates Dr. Malachi Lowry MD Primary Care Prov ider, Attending Provider, Referring Provider Active Team Status: Inactive Member Role Status Dates Dr. Malachi Lowry MD Primary Care Provider Active Dr. Que Mccrary MD Attending Provider, Referring Pro vider Active Team Status: Inactive Member Role Status Dates Dr. Malachi Lowry MD Primary Care Provider Active Dr. Que Mccrary MD Attending Provider, Referring Pro vider Active Dr. Renetta Mary DO Other Provider Active Team Status: Inactive Member Role Status Dates Dr. Malachi Lowry MD Primary Care Provider Active Dr. Renetta Mary DO Attending Provider Active Team Status: Inactive Member Role Status Dates Dr. Malachi Lowry MD Primary Care Provider Active Dr. Renetta Mary DO Attending Provider, Referring P rovider Active Team Status: Inactive Member Role Status Dates Dr. Malachi Lowry MD Primary Care Provider Active Dr. Que Mccrary MD Attending Provider Active Team Status: Inactive Member Role Status Dates Dr. Malachi Lowry MD Primary Care Provider, Referrin g Provider Active Dr. Sharath Low DO Attending Provider Active Team Status: Inactive Member Role Status Dates Dr. Malachi Lowry MD Primary Care Provider, Attendin g Provider Active Team Status: Active Member Role Status Dates Dr. Malachi Lowry MD Primary Care Prov ider, Attending Provider, Referring Provider Active Team Status: Active Member Role Status Dates Dr. Malachi Lowry MD Primary Care Provider Active Dr. Renetta Mary DO Attending Provider Active Team Status: Active Member Role Status Dates Dr. Malachi Lowry MD Primary Care Provider Active Dr. Bret Lo MD Attending Provider Active Team Status: Inactive Member Role Status Dates Dr. Malachi Lowry MD Primary Care Provider Active Keara Shaw MD Emergency Provider Active Team Status: Inactive Member Role Status Dates Dr. Malachi Lowry MD Primary Care Provider Active Dr. Bret Lo MD Attending Provider Active Team Status: Inactive Member Role Status Dates Dr. Malachi Lowry MD Primary Care Provider Active Keara Shaw MD Attending Provider, Emergency Provid er Active Team Status: Inactive Member Role Status Dates Dr. Malachi Lowry MD Primary Care Provider, Referrin g Provider Active Dr. Herb Huerta MD Attending Provider Active Team Status: Active Member Role Status Dates Dr. Malachi Lowry MD Primary Care Provider Active Dr. Floridalma Grant MD Attending Provider, Referring Provider Active Veneer Splicer Relationship Specialty Start Date End Date Malachi Lowry [address] [place] [address] PCP - General Family Medicine 02/17/20 Team Status: Inactive Member Role Status Dates Dr. Malachi Lowry MD Primary Care Provider Active Dr. Clare Mcneill DO Attending Provider, Referrin g Provider Active Team Status: Active Member Role Status Dates Dr. Malachi Lowry MD Primary Care Provider Active Dr. Herb Huerta MD Attending Provid er, Referring Provider, Other Provider Active Team Status: Inactive Member Role Status Dates Dr. Malachi Lowry MD Primary Care Provider Active Dr. Herb Huerta MD Attending Provider, Referring Provider Active Team Status: Active Member Role Status Dates Dr. Malachi Lowry MD Primary Care Provider Active Dr. Que Mccrary MD Attending Provider Active Dr. Herb Huerta MD Referring Provider Active Team Status: Inactive Member Role Status Dates Dr. Malachi Lowry MD Primary Care Provider, Referrin g Provider Active Lisa Carter PA, PA-C Attending Provider Active Team Status: Inactive Member Role Status Dates Dr. Malachi Lowry MD Primary Care Provider, Referrin g Provider Active Gabby Brown CAPACITOR REPAIRER, CAPACITOR REPAIRER-C Attending Provider Active Team Status: Inactive Member Role Status Dates Dr. Malachi Lowry MD Primary Care Provider Active Dr. Floridalma Grant MD Attending Provider, Referring Provider Active Team Status: Inactive Member Role Status Dates Dr. Malachi Lowry MD Primary Care Provider Active Gabby Brown CAPACITOR REPAIRER, CAPACITOR REPAIRER-C Attending Provider, Referring P rovider Active Team Status: Inactive Member Role Status Dates Dr. Malachi Lowry MD Primary Care Prov ider, Attending Provider, Referring Provider Active Dr. Renetta Mary DO Other Provider Active Team Status: Active Member Role Status Dates Dr. Malachi Lawton MD Family Provider Active Maritza Pedraza MD Primary Care Provider Active Team Status: Inactive Member Role Status Dates Dr. Renetta Mary DO Attending Provider, Referring P rovider Active Maritza Pedraza MD Primary Care Provider Active Team Status: Active Member Role Status Dates Dr. Malachi Lowry MD Primary Care Provider Active CURTIS ARITA Attending Provider Active Team Status: Inactive Member Role Status Dates Dr. Malachi Lowry MD Primary Care Provider Active CURTIS ARITA Attending Provider Active Team Status: Inactive Member Role Status Dates Maritza Pedraza MD Primary Care Provider Active Dr. Renetta Mary DO Attending Provider, Referring P rovider Active Veneer Splicer Relationship Specialty Start Date End Date Maritza Pedraza MD [address] [place] [address] PCP - General Internal Medicine 05/07/23 Veneer Splicer Relationship Specialty Start Date End Date Maritza Pedraza MD [address] [place] [address] PCP - General Internal Medicine 05/07/23 Veneer Splicer Relationship Specialty Start Date End Date Maritza Pedraza MD [address] [place] [address] PCP - General Internal Medicine 05/07/23 Team Status: Inactive Member Role Status Dates Maritza Pedraza MD Primary Care Provider Active Dr. Renetta Mary , Attending Provider Active Veneer Splicer Relationship Specialty Start Date End Date Maritza Pedraza MD [address] [place] [address] PCP - General Internal Medicine 05/07/23 Veneer Splicer Relationship Specialty Start Date End Date Maritza Pedraza MD [address] [place] [address] PCP - General Internal Medicine 05/07/23 Veneer Splicer Relationship Specialty Start Date End Date Maritza Pedraza MD [address] [place] [address] PCP - General Internal Medicine 05/07/23 Veneer Splicer Relationship Specialty Start Date End Date Maritza Pedraza MD [address] [place] [address] PCP - General Internal Medicine 05/07/23 Veneer Splicer Relationship Specialty Start Date End Date Maritza Pedraza MD [address] [facility] [address] [place], [place] [address] PCP - General Internal Medicine 05/07/23 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 Relationship Specialty Start Date End Date Maritza Pedraza MD [address] [facility] [address] [place] [address] PCP - General Internal Medicine 05/07/23 Veneer Splicer Relationship Specialty Start Date End Date Maritza Pedraza MD [address] [facility] [address] [place], [place] [id number] PCP - General Internal Medicine 05/07/23 Team Status: Active Member Role Status Laila Pedraza MD Primary Care Provider Active Team Status: Inactive Member Role Status Laila Pedraza MD Primary Care Provider Active St art: February 19, 2024 End: February 19, 2024 Melodie DURÁN, PA Attending Provider Active Start: February 19, 2024 End: February 19, 2024 Melodie Wolfe PA, PA Referring Provider Active Start: February 19, 2024 End: February 19, 2024 Team Status: Active Member Role Status Dates Maritza Pedraza MD Primary Care Provider Active St art: February 19, 2024 Melodie DURÁN, PA Referring Provider Active Start: February 19, 2024 Melodie DURÁN, PA Other Provider Active Start: February 19, 2024 Dr. Que Mccrary MD Attending Provider Active S tart: February 19, 2024 Team Status: Inactive Member Role Status Laila Pedraza MD Primary Care Provider Active St art: February 28, 2024 End: February 28, 2024 Maritza Pedraza MD Attending Provider Active Start : February 28, 2024 End: February 28, 2024 Maritza Pedraza MD Referring Provider Active Start : February 28, 2024 End: February 28, 2024 Team Status: Inactive Member Role Status Laila Pedraza MD Primary Care Provider Active St art: March 12, 2024 End: March 12, 2024 Dr. Renetta Mary DO Attending Provider Active Start: March 12, 2024 End: March 12, 2024 Dr. Renetta Mary DO Referring Provider Active Start: March 12, 2024 End: March 12, 2024 Team Status: Inactive Member Role Status Dates Maritza Pedraza MD Primary Care Provider Active St art: April 11, 2024 End: April 11, 2024 Maritza Pedraza MD Referring Provider Active Start : April 11, 2024 End: April 11, 2024 Dr. Daniel Villafana MD Attending Provider Active Start: April 11, 2024 End: April 11, 2024 Team Status: Active Member Role Status Laila Pedraza MD Primary Care Provider Active St art: April 14, 2024 Maritza Pedraza MD Attending Provider Active Start : April 14, 2024 Maritza Pedraza MD Referring Provider Active Start : April 14, 2024 Team Status: Inactive Member Role Status Laila Pedraza MD Primary Care Provider Active St art: June 02, 2024 End: June 02, 2024 Maritza Pedraza MD Attending Provider Active Start : June 02, 2024 End: June 02, 2024 Maritza Pedraza MD Referring Provider Active Start : June 02, 2024 End: June 02, 2024 Team Status: Active Member Role Status Laila Pedraza MD Primary Care Provider Active St art: June 04, 2024 Dr. Daniel Villafana MD Attending Provider Active Start: June 04, 2024 Dr. Daniel Villafana MD Referring Provider Active Start: June 04, 2024 Veneer Splicer Relationship Specialty Start Date End Date Maritza Pedraza MD [address] [place] [address] PCP - General Internal Medicine 05/07/23 Team Status: Inactive Member Role Status Laila Pedraza MD Primary Care Provider Active St art: June 04, 2024 End: June 04, 2024 Dr. Daniel Villafana MD Attending Provider Active Start: June 04, 2024 End: June 04, 2024 Dr. Daniel Villafana MD Referring Provider Active Start: June 04, 2024 End: June 04, 2024 Team Status: Inactive Member Role Status Dates Maritza Pedraza MD Primary Care Provider Active St art: April 14, 2024 End: April 14, 2024 Maritza Pedraza MD Attending Provider Active Start : April 14, 2024 End: April 14, 2024 Maritza Pedraza MD Referring Provider Active Start : April 14, 2024 End: April 14, 2024 Veneer Splicer Relationship Specialty Start Date End Date Maritza Pedraza MD [address] [place] [address] PCP - General Internal Medicine 05/07/23 Team Status: Active Member Role/Relationship Status Laila Pedraza MD Primary Care Provider Active Team Status: Inactive Member Role/Relationship Status Laila Pedraza MD Primary Care Provider Active St art: June 02, 2024 End: June 02, 2024 Maritza Pedraza MD Attending Provider Active Start : June 02, 2024 End: June 02, 2024 Maritza Pedraza MD Referring Provider Active Start : June 02, 2024 End: June 02, 2024 Team Status: Inactive Member Role/Relationship Status Laila Pedraza MD Primary Care Provider Active St art: June 04, 2024 End: June 04, 2024 Dr. Daniel Villafana MD Attending Provider Active Start: June 04, 2024 End: June 04, 2024 Dr. Daniel Villafana MD Referring Provider Active Start: June 04, 2024 End: June 04, 2024 Team Status: Inactive Member Role/Relationship Status Laila Pedraza MD Primary Care Provider Active St art: July 11, 2024 End: July 11, 2024 Maritza Pedraza MD Referring Provider Active Start : July 11, 2024 End: July 11, 2024 Dr. Daniel Villafana MD Attending Provider Active Start: July 11, 2024 End: July 11, 2024 Team Status: Inactive Member Role/Relationship Status Laila Pedraza MD Primary Care Provider Active St art: July 11, 2024 End: July 11, 2024 Dr. Que Mccrary MD Attending Provider Active S tart: July 11, 2024 End: July 11, 2024 Team Status: Inactive Member Role/Relationship Status Dates Maritza Pedraza MD Primary Care Provider Active St art: August 15, 2024 End: August 15, 2024 LEEANNA Romero Attending Provider Active Start : August 15, 2024 End: August 15, 2024 LEEANNA Romero Referring Provider Active Start : August 15, 2024 End: August 15, 2024 Team Status: Inactive Member Role/Relationship Status Dates Maritza Pedraza MD Primary Care Provider Active St art: September 12, 2024 End: September 12, 2024 Maritza Pedraza MD Referring Provider Active Start : September 12, 2024 End: September 12, 2024 Gabby Brown NP, CAPACITOR REPAIRER-C Attending Provider Active Start: September 12, 2024 End: September 12, 2024 Source Comments (unrecognize d section and content) In the event this informatio n is protected by the Federal Confidentiality of Alcohol and Drug Abuse Patient Records regulations: The Federal rules restrict any use of the information to criminally investigate or prosecute any alcohol or drug abuse patient.[facility] the event this information is protected by the Federal Confidentiality of Alcohol and Drug Abuse Patient Records regulations: The Federal rules restrict any use of the information to criminally investigate or prosecute any alcohol or drug abuse patient.[facility] the event this information is protected by the Federal Confidentiality of Alcohol and Drug Abuse Patient Records regulations: The Federal rules restrict any use of the information to criminally investigate or prosecute any alcohol or drug abuse patient.[facility] the event this information is protected by the Federal Confidentiality of Alcohol and Drug Abuse Patient Records regulations: The Federal rules restrict any use of the information to criminally investigate or prosecute any alcohol or drug abuse patient.[facility] Hospital[facility] the event this information is protected by the Federal Confidentiality of Alcohol and Drug Abuse Patient Records regulations: The Federal rules restrict any use of the information to criminally investigate or prosecute any alcohol or drug abuse patient.[facility] Hospital[facility] the event this information is protected by the Federal Confidentiality of Alcohol and Drug Abuse Patient Records regulations: The Federal rules restrict any use of the information to criminally investigate or prosecute any alcohol or drug abuse patient.[facility] Hospital[facility] the event this information is protected by the Federal Confidentiality of Alcohol and Drug Abuse Patient Records regulations: The Federal rules restrict any use of the information to criminally investigate or prosecute any alcohol or drug abuse patient.[facility] Hospital[facility] the event this information is protected by the Federal Confidentiality of Alcohol and Drug Abuse Patient Records regulations: The Federal rules restrict any use of the information to criminally investigate or prosecute any alcohol or drug abuse patient.[facility] HospitalIn the event this information is protected by the Federal Confidentiality of Alcohol and Drug Abuse Patient Records regulations: The Federal rules restrict any use of the information to criminally investigate or prosecute any alcohol or drug abuse patient.[facility] the event this information is protected by the Federal Confidentiality of Alcohol and Drug Abuse Patient Records regulations: The Federal rules restrict any use of the information to criminally investigate or prosecute any alcohol or drug abuse patient.[facility] the event this information is protected by the Federal Confidentiality of Alcohol and Drug Abuse Patient Records regulations: The Federal rules restrict any use of the information to criminally investigate or prosecute any alcohol or drug abuse patient.[facility] the event this information is protected by the Federal Confidentiality of Alcohol and Drug Abuse Patient Records regulations: The Federal rules restrict any use of the information to criminally investigate or prosecute any alcohol or drug abuse patient.[facility] HospitalIn the event this information is protected by the Federal Confidentiality of Alcohol and Drug Abuse Patient Records regulations: The Federal rules restrict any use of the information to criminally investigate or prosecute any alcohol or drug abuse patient.[facility] HospitalIn the event this information is protected by the Federal Confidentiality of Alcohol and Drug Abuse Patient Records regulations: The Federal rules restrict any use of the information to criminally investigate or prosecute any alcohol or drug abuse patient.[facility] HospitalIn the event this information is protected by the Federal Confidentiality of Alcohol and Drug Abuse Patient Records regulations: The Federal rules restrict any use of the information to criminally investigate or prosecute any alcohol or drug abuse patient.[facility] Active Administered Medications - up to 3 most recent administrations Administered Medications (un recognized section and content) Medication Order MAR Action Action Date Dose Rate Site PHENYLephrine 2.5 % 1 Drop (AK-DILATE, FRANCESCA-SYNEPHRINE) 1 Drop, BOTH EYES, DIRECTED, Starting on Sun05/07/23 at 1500, Until Sun05/08/23 at 0259, Administer for dilation PROTECT FROM LIGHT Given 05/07/2023 3:00 PM EST 1 Drop tropicamide 1 % 1 Drop (MYDRIACYL) 1 Drop, BOTH EYES, DIRECTED, Starting on Sun05/07/23 at 1500, Until Sun05/08/23 at 0259, Administer for dilation Given 05/07/2023 3:00 PM EST 1 Drop Inactive Administered Medications - up to 3 most recent administrations Medication Order MAR Action Action Date Dose Rate Site bevacizumab (Milton's) 1.25 mg intravitreal syringe (AVASTIN) 1.25 mg, ONCE, 1 dose, Starting on Sun05/10/23 at 1148, Until Sophia 05/10/23 at 1148 Given 05/10/2023 11:48 AM EST 1.25 mg Le ft Inactive Administered Medications - up to 3 most recent administrations Medication Order MAR Action Action Date Dose Rate Site bevacizumab (Milton's) 1.25 mg intravitreal syringe (AVASTIN) 1.25 mg, ONCE, 1 dose, Starting on Sun06/07/23 at 1620, Until Sophia 06/07/23 at 1620 Given 06/07/2023 4:20 PM EDT 1.25 mg Lef t FOR RECORDS PERTAINING TO PATIENTS WHO ARE [...] BE BASED ON THE PRIMARY CLINICAL RECORDS. [facility]. provides no warranty or guarantee of the accuracy or completeness of information in this document.
[2024-09-17 23:46] VITALS: BP 131/67; PULSE 73; RESP 15; O2SAT 98
[2024-09-18] VITALS: BP 131/67; PULSE 74; RESP 18; O2SAT 98
--- NOTE | 2024-09-18 00:10 | EX.ED.DYSGE1 ---
HPI History of Present Illness Chief Complaint: Headache Informant: patient, spouse/S.O. and family Narrative Narrative: Patient is a 74-year-old female with past medical history of hypertension as well as previous CVA. She states that ever since her previous stroke she will have intermittent headaches. She states that this evening she developed 1 of those headaches but it typically resolves quickly and this 1 has not improved/resolved over the last few hours. She states has been no recent trauma she denies any history of blood thinner use and she states that there has been no sick symptoms. However because of the persistent headache there was concern this could be neurologic in nature and she was brought in for evaluation [facility] Medical History Preop cardiovascular exam Wears glasses History of steroid therapy Fatty liver History of renal disease Former smoker Shortness of breath on exertion History of echocardiogram History of stress test Cardiology follow-up encounter Deep vein thrombophlebitis of right leg (1965) Lymphedema Essential hypertension Osteoarthritis Varicose vein of leg Home Medications ?Medication ?Instructions ?Recorded ?Last Taken ?Type calcium 315 mg (as 1 tab PO DAILY 01/21/20 Unknown History citrate)-vitamin D3 6.25 mcg (250 unit) tablet (Citracal + Vitamin D Maximum) vitamins A,C,U-uhsh-hastfi 4,296 1 cap PO BID 07/19/23 Unknown History mcg-226 mg-90 mg capsule (PreserVision AREDS) atorvastatin 20 mg tablet 20 mg PO QDAY 04/11/24 Unknown History duloxetine 30 mg capsule,delayed 90 mg PO QDAY 04/11/24 Unknown History release amlodipine 5 mg tablet 5 mg PO DAILY #90 tabs 08/01/24 Unknown Rx Allergy/AdvReac Type Severity Reaction Status Date / Time Sulfa (Sulfonamide Allergy Rash Verified 09/17/24 22:46 Antibiotics) Family History Mother CVA (cerebral vascular accident), Onset Age: 72 Hypertension Father Cancer Brain Alcoholism Brother Cancer leukemia Atrial fibrillation Surgical History History of cholecystectomy History of lumbar spinal fusion (~02/2021) Gluteal tendonitis of right buttock (~02/2020) History of section History of hysterectomy History of arthroscopy of left knee (2000) Social History Smoking Status: Former smoker second hand exposure: No alcohol intake: current alcohol intake frequency: a few times a month Alcohol type: beer substance use type: does not use caffeine: Yes Type: coffee Number of servings: 3 ROS ROS ED Constitutional Constitutional ED: Denies chills or fever(s) Eyes Eyes: Denies blurry vision or change in vision ENT ENT ED: Denies sore throat Cardiovascular Cardiovascular: Denies chest pain Respiratory/Chest Respiratory/Chest: Denies cough or dyspnea Gastrointestinal Gastrointestinal: Denies abdominal pain, diarrhea, nausea or vomiting Musculoskeletal Musculoskeletal: Denies neck pain Integumentary Denies rash Neurologic Neurologic: Reports headache(s); Denies paresthesias or weakness Hematologic/Lymphatic Hematologic/Lymphatic: Denies easy bleeding or easy bruising EXAM Physical Exam Const Vital Signs: 09/17/24 22:46 09/17/24 23:46 09/18/24 00:00 Temperature 98.3 F Temperature Source Oral Pulse Rate 82 73 74 Respiratory Rate 18 15 18 Blood Pressure 151/72 H 131/67 H 131/67 H Blood Pressure Mean 98 88 88 Pulse Ox 98 98 98 Oxygen Delivery Method Room Air Room Air Room Air 09/18/24 00:19 Temperature 98 F Temperature Source Pulse Rate 65 Respiratory Rate 18 Blood Pressure 131/68 H Blood Pressure Mean 89 Pulse Ox 99 Oxygen Delivery Method Positive well nourished and well developed General Appearance ED: well developed; Negative for pallor HEENT HEENT Narrative: Normocephalic atraumatic Eyes PERRL and EOMs intact bilaterally General Eye ED: Negative for scleral icterus Neck supple Resp normal respiratory effort and clear to auscultation bilaterally Cardio regular rate and regular rhythm Extremity normal to inspection Neuro oriented x3, CN's II-XII intact bilaterally and no sensory deficits noted Neuro Narrative: GCS of 15 Cranial nerves II through XII are grossly intact there are no focal neurologic deficit No pronator drift no dysmetria no truncal ataxia NIH stroke scale score of 0 Sensorium / Orientation: alert Motor Exam: strength 5/5 throughout Psych mental status grossly normal Skin no rashes or lesions noted and no wounds General Skin Exam: Negative for jaundice or pallor MDM MDM MDM Narrative Medical decision making narrative: Patient arrived to the ER slightly hypertensive otherwise with stable vitals. She reported recurrent headaches since her stroke but this 1 was slightly different as it was not resolving as the previous ones would. She denied any trauma and she denies any sick symptoms going against a potential traumatic subarachnoid or subdural hemorrhage or sinusitis or meningitis. Because of her previous stroke I did like to perform a noncontrast head CT. This revealed no acute finding. She was treated with IV Toradol Benadryl Reglan and Decadron. Following administration of the medication she reports complete resolution of her headache and her neurologic exam remains normal and there is been resolution of her hypertension as well. Therefore at this time she has no strokelike symptoms no findings of secondary infection such as sinusitis or meningitis and there has been no change to her neurologic exam going against CVA. Therefore with resolution of symptoms and negative workup she is otherwise safe for discharge History & Record Review Discussion w/independent historian: Patient, Family and Significant other Radiography Diagnostic Testing: Clinical Impression(s) from Imaging Studies Brain CT 09/17/24 23:08 IMPRESSION: 1. No acute intracranial abnormality. 2. Mild volume loss and moderate chronic small-vessel ischemic changes. Reading Location: [facility] Discharge Plan Triage Chief Complaint: Headache ED Provider: Tony Penaloza Dx/Rx/DC Orders Clinical Impression: Cephalgia, Essential hypertension, History of CVA (cerebrovascular accident) Instructions: ED Headache Unspecified Prescriptions: No Action calcium citrate-vitamin D3 [Citracal + D Maximum] 315 mg-6.25 mcg (250 unit) tablet 1 tab PO DAILY PreserVision AREDS 4,296 mcg-226 mg-90 mg capsule 1 cap PO BID duloxetine 30 mg capsule,delayed release(DR/EC) 90 mg PO QDAY atorvastatin 20 mg tablet 20 mg PO QDAY amlodipine 5 mg tablet 5 mg PO DAILY Qty: 90 3RF Primary Care Provider: Maritza Ren Referrals: Maritza Ren MD [Primary Care Provider] - Activity Restrictions/Additional Instructions: Your head CT revealed a little bit of fluid within your sphenoid sinus which could be that pressure sensation that you are feeling but at this time there is no signs of acute infection or bleed or mass. Continue all of your home medications as directed by your doctor and return to the ER should you have any further concerns Print Language: Uzbek Disposition Disposition: Home, Self Care Discharge Date/Time: 09/18/24 00:20
[2024-09-18 00:19] VITALS: BP 131/68; PULSE 65; RESP 18; TEMP 36.6; O2SAT 99
== END 2024-09-18 00:20 | disposition home or self-care (01) ==
PROVIDERS: Emergency Provider Emergency Medicine; PCP Family Medicine; Visit Provider Emergency Medicine
DX: R51.9 Headache, unspecified (principal); I10 Essential (primary) hypertension; Z90.710 Acquired absence of both cervix and uterus; Z86.73 Personal history of transient ischemic attack (TIA), and cerebral infarction without residual deficits; Z82.49 Family history of ischemic heart disease and other diseases of the circulatory system; Z87.891 Personal history of nicotine dependence; Z86.718 Personal history of other venous thrombosis and embolism; Z90.49 Acquired absence of other specified parts of digestive tract; Z98.1 Arthrodesis status
CPT/HCPCS: 70450; 96361; 96374; 96375; 99284; A4216

== ENCOUNTER → 2024-10-08 | Outpatient (CLI) | payer MEDICARE, SELFPAY ==
--- NOTE | 2024-10-08 12:56 | ECHOD_ITS ---
Reason For Study Reason For Study: SOB, TIA/CVA Procedure This was a 2D Doppler, Color Flow transthoracic echocardiogram. Exam performed in department. Left Ventricle Normal LV size. The left ventricular ejection fraction is 65 %. No regional wall motion abnormalities noted. Right Ventricle Normal RV size. Normal systolic function. Atria Normal left atrium. Normal right atrium. Mitral Valve There is mild mitral annular calcification. Mild (1+) eccentric mitral valve insufficiency. Tricuspid Valve Normal tricuspid valve. Mild (1+) tricuspid valve insufficiency. Pulmonary artery systolic pressure is 25 mmHg. Aortic Valve Trisinus/trileaflet aortic valve. Mild focal aortic valve calcification. Mild aortic stenosis. Mild (1+) aortic valve insufficiency. Pulmonic Valve Normal pulmonic valve. Great Vessels Normal aortic root. The pulmonary artery is normal size. Inferior vena cava collapse with respiration. Pericardium/Pleural No pericardial effusion. MMode/2D Measurements & Calculations LVIDd: 4.7 cm IVSd: 1.1 cm LVOT diam: 2.0 cm LVIDs: 3.0 cm LVPWd: 0.94 cm LVOT area: 3.0 cm2 RVDd: 2.8 cm FS: 35.7 % asc Aorta Diam: 3.3 cm LAV(MOD-bp): 34.6 ml LVAd ap4: 20.7 cm2 LAV(MOD-bp) Indexed: 20.4 ml/m2 LVLd ap4: 6.8 cm LAV(MOD-sp2): 36.2 ml EDV(MOD-sp4): 52.7 ml LAV(MOD-sp4): 33.5 ml EDV(sp4-el): 53.7 ml LVAs ap4: 11.1 cm2 LVLs ap4: 5.7 cm ESV(MOD-sp4): 18.9 ml ESV(sp4-el): 18.5 ml EF(MOD-sp4): 64.2 % EF(sp4-el): 65.5 % LVAd ap2: 17.9 cm2 SV(MOD-sp4): 33.8 ml SV(MOD-sp2): 25.6 ml LVLd ap2: 6.8 cm SI(MOD-sp4): 19.9 ml/m2 SI(MOD-sp2): 15.1 ml/m2 EDV(MOD-sp2): 41.3 ml EDV(sp2-el): 40.2 ml LVAs ap2: 10.1 cm2 LVLs ap2: 5.8 cm ESV(MOD-sp2): 15.7 ml ESV(sp2-el): 15.0 ml EF(MOD-sp2): 62.0 % SV(sp4-el): 35.2 ml Ao sinus diam: 3.[address] Junction: 2.7 cm LA dimension(2D): 3.1 cm LA A4 area: 14.9 cm2 RA A4 area: 10.2 cm2 TAPSE: 2.0 cm Time Measurements MV dec time: 0.20 sec Doppler Measurements & Calculations MV E max lizandro: 62.6 cm/sec Lat Peak E' Lizandro: 11.4 cm/sec Med Peak E' Lizandro: 10.2 cm/sec MV A max lizandro: 84.3 cm/sec E/E' lat: 5.5 E/E' med: 6.1 MV E/A: 0.74 MV dec slope: 313.2 cm/sec2 Ao V2 max: 193.2 cm/sec AI max lizandro: 428.3 cm/sec Ao max P.9 mmHg AI max P.4 mmHg Ao V2 mean: 131.8 cm/sec AI dec slope: 269.4 cm/sec2 Ao mean P.0 mmHg AI P1/2t: 465.6 msec Ao V2 VTI: 40.6 cm AV (velocity ratio): 0.56 COLTON(I,D): 1.7 cm2 COLTON(V,D): 1.8 cm2 LV V1 max: 114.1 cm/sec SV(LVOT): 68.6 ml PA V2 max: 86.5 cm/sec LV V1 max P.2 mmHg LV V1 mean P.2 mmHg LV V1 mean: 83.6 cm/sec LV V1 VTI: 22.7 cm TR max lizandro: 236.3 cm/sec TR max P.3 mmHg ECHO/Echo Complete Interpretation Summary Normal LV size. The left ventricular ejection fraction is 65 %. Mild (1+) eccentric mitral valve insufficiency. Mild focal aortic valve calcification. Mild (1+) aortic valve insufficiency. Mild aortic stenosis. Ordering Physician: Gabby Brown Referring Physician: Gabby Brown Performed By: Dianne Dobbins RDCS
== END | disposition home or self-care (01) ==
LOC: CVS 12:55
PROVIDERS: PCP Family Medicine; Referring Provider Nurse Practitioner Gerontology; Visit Provider Nurse Practitioner Gerontology
DX: R06.02 Shortness of breath (principal); Z86.73 Personal history of transient ischemic attack (TIA), and cerebral infarction without residual deficits
CPT/HCPCS: 93306

== ENCOUNTER → 2024-12-10 | Outpatient (CLI) | payer MEDICARE, SELFPAY ==
--- NOTE | 2024-12-10 12:30 | BI_ITS ---
EXAM: SCRN MAMM (CAD)W/MARIBEL BILAT DATE: 12/10/2024 CLINICAL HISTORY: F, Age 74 y/o , SCREENING FOR BREAST CANCER No family history. TECHNIQUE: Procedure Code: [id number] Modality: MG Procedure: SCRN MAMM (CAD)W/MARIBEL BILAT COMPARISON: Prior exam(s) dated June 12, 2022.. FINDINGS: TISSUE DENSITY: The breasts are almost entirely fatty. Bilateral Breast Mammographic Findings: No significant masses, calcifications or other abnormalities are identified. No suspicious masses, areas of developing architectural distortion, or suspicious calcifications. There has been no significant interval change. BI/SCRN MAMM (CAD)W/MARIBEL BILAT IMPRESSION: Stable bilateral screening mammogram. OVERALL FINAL ASSESSMENT BI-RADS 1: NEGATIVE. RECOMMENDATION: Routine annual follow-up in 1 Year Additional Recommendation none A letter with findings and recommendations will be mailed to the patient. Reading Location: [facility]
== END | disposition home or self-care (01) ==
LOC: OPBI 12:22
PROVIDERS: PCP Family Medicine; Referring Provider Family Medicine; Visit Provider Family Medicine
DX: Z12.31 Encounter for screening mammogram for malignant neoplasm of breast (principal)
CPT/HCPCS: 77063; 77067

== ENCOUNTER → 2024-12-23 | Outpatient (CLI) | payer MEDICARE, SELFPAY ==
--- NOTE | 2024-12-23 16:23 | RAD_ITS ---
EXAM: XR Left Knee Complete, 4 or More Views CLINICAL INDICATION: LEFT KNEE PAIN TECHNIQUE: Four or more views of the left knee. COMPARISON: No relevant prior studies available. FINDINGS: BONES/JOINTS: Removal of tibial plate in the medial compartment. Arthroplastic component of the medial femoral condyle. No acute fracture. No dislocation. SOFT TISSUES: Soft tissue swelling. RAD/Knee 4 or More Views IMPRESSION: Postoperative changes as above. Reading Location: [id number]
== END | disposition home or self-care (01) ==
LOC: MTRAD 16:23
PROVIDERS: PCP Family Medicine; Referring Provider Family Medicine; Visit Provider Family Medicine
DX: M25.562 Pain in left knee (principal)
CPT/HCPCS: 73564

== ENCOUNTER → 2025-02-18 | Outpatient (CLI) | payer MEDICARE, SELFPAY ==
--- NOTE | 2025-02-18 13:25 | MRI_ITS ---
PROCEDURE: MRI BRAIN W/WO CONTRAST 02/18/2025 REASON FOR EXAM: CEREBRAL ISCHEMIA, DIZZINESS TECHNIQUE: Procedure Code: [id number] Modality: MR Procedure: BRAIN W/WO CONTRAST Multiplanar and multisequence images were obtained. CONTRAST: Clariscan VOLUME: 14 mL COMPARISON: CT head 09/17/2024. FINDINGS: No regions of abnormal restricted diffusion to indicate recent infarct. No intracranial hemorrhage, extra-axial collection, or other acute abnormality. No mass lesion or pathologic enhancement. Moderate generalized brain parenchymal volume loss, and chronic small-vessel ischemic-gliotic changes throughout the supratentorial white matter and within the central omer. Few small foci of chronic lacunar infarcts in the bilateral maier radiata white matter, and in the cerebellum with a larger area of chronic infarct involving the lateral right cerebellar hemisphere. Grossly preserved major intracranial vascular flow voids. Absent [place] ocular lenses. Well-aerated paranasal sinuses and bilateral mastoid air cells. MRI/Brain W/WO Contrast IMPRESSION: No acute intracranial abnormality; No acute infarct. Moderate parenchymal volum e loss and chronic small-vessel ischemic changes, with chronic infarcts predominantly involving the cerebellum. Reading Location: [id number]
--- OUTSIDE RECORDS SUMMARY | 2025-02-18 19:49 | XMS RPT_ITS | CCD ---
Author Organization [facility] Care Team Providers Care Litigation Partner Name Role Phone Demario Chavez Usman Unavailable Unavailable TarahbiancaDemario Usman Unavailable Unavailable Malachi Lawton Unavailable Unavailable Koberling, Chyna L Unavailable Unavailable Koberling, Chyna L Unavailable Unavailable Lawton, Malachi L Unavailable Unavailable Lawton, Malachi L Unavailable Unavailable Lawton, Malachi L Unavailable Unavailable Lawton, Malachi L Unavailable Unavailable Malachi Lawton Primary Care Provider Update Needed Unavailable Unavailable Rudy VERAS, Floridalma Hubbard Unavailable Dr. Malachi Lowry Primary Care Provider [phone] Dr. Malachi Lowry Referring Provider Demetra, Dr. Grey Attending Provider Demetra, Dr. Grey Other Provider Demetra, Dr. Grey Referring Provider Dr. Malachi Lowry Attending Unavaila ble Jered, Dr. Malachi Sanchez Primary Care Unavailab ginna Lawton, Dr. Malachi Sanchez Primary Care Unavailab le Rudy, Dr. Floridalma Houser Attending Unavailab le Rudy, [...] Rudy, Dr. Floridalma Houser Attending Unavailab ginna Low, Dr. Early Attending Provider Dr. Malachi Lowyr Primary Care Provider Dr. Que Mccrary Attending Provider Dr. Que Mccrary Referring Provider Dr. uQe Mccrary Other Provider Dr. Malachi Lowry Referring Provider Dr. Sharath Low Attending Provider Dr. Herb Huerta Attending Provider Malachi Lowry Primary Care Provider Dr. Malachi Lowry Primary Care Provider Dr. Herb Huerta Referring Provider Dr. Herb Huerta Other Provider Demetra, Dr. Grey Attending Provider Dr. Herb Huerta Referring Provider [phone] Emma DURÁN, PACarina Gonzalez Attending Provider Dr. Malachi Lowry Primary Care Provider Dr. Malachi Lowry Referring Provider [phone] Kevin CRITICAL POWER INSTALL TECHNICIAN, CRITICAL POWER INSTALL TECHNICIAN-C Gabby Attending Provider Dr. Malachi Lowry Primary Care Provider Dr. Malachi Lowry Referring Provider [phone] Malachi Lowry Primary Care Provider Dr. Malachi Lowry Referring Provider [phone] Kevin CRITICAL POWER INSTALL TECHNICIAN, CRITICAL POWER INSTALL TECHNICIAN-C Gabby Attending Provider Dr. Malachi Lowry Primary Care Provider Dr. Malachi Lowry Referring Provider [phone] Kevin CRITICAL POWER INSTALL TECHNICIAN, CRITICAL POWER INSTALL TECHNICIAN-C Gabby Attending Provider Milo VERAS, Maritza Primary Care Provider [phone] Milo VERAS, Maritza Primary Care Provider [phone] Milo VERAS, Maritza Primary Care Provider [phone] Melodie Wise Attending Provider Aiden DURÁN, Melodie Costa Referring Provider Aiden DURÁN, Melodie Costa Other Provider [phone] Demetra VERAS, Dr. Grey Attending Provider [phone] Maritza Ren MD Attending Provider Milo VERAS, Maritza Referring Provider Usman LEMOS, Dr. Jackson Attending Provider [phone] Renetta Mary DO Referring Provider Dr. Daniel Villafana MD Attending Provider Dr. Daniel Villafana MD Referring Provider Milo VERAS, Maritza Primary Care Provider Milo VERAS, Maritza Referring Provider Maritza Ren MD Attending Provider Milo VERAS, Maritza Primary Care Provider Maritza Ren MD Attending Provider Milo VERAS, Maritza Referring Provider Dr. Daniel Villafana MD Attending Provider Demetra VERAS, Dr. Grey Attending Provider [phone] Saw Baptiste Attending Provider Saw Baptiste Referring Provider Gabby Valdez Attending Provider Dr. Tony Penaloza DO Emergency Provider Antonina VERAS, Sean R Unavailable [phone] Milo VERAS, Maritza J Unavailable Milo VERAS, Maritza Primary Care Provider Milo VERAS, Maritza Referring Provider Dr. Daniel Villafana MD Attending Provider Dr. Tony Penaloza DO Attending Provider Gabby Valdez Referring Provider Eduardo VERAS, Robert Costa Unavailable Matt GRAY, Brian Patel Unavailable [phone] MILO, CHALON Primary Care Unavailable YUAN, KEARA Attending Unavailable YUAN, KEARA Referring Unavailable MILO, CHALON Primary Care Unavailable YUAN, KEARA Referring Unavailable YUAN, KEARA Attending Unavailable YUAN, KEARA Referring Unavailable MILO, CHALON Primary Care Unavailable YUAN, KEARA Attending Unavailable MILO, CHALON Primary Care Unavailable KYRA YOUSSEF II Attending Unavailabl e SELF Referring Unavailable YUAN, KEARA Referring Unavailable MILO, CHALON Primary Care Unavailable YUAN, KEARA Attending Unavailable YUAN, KEARA Referring Unavailable YUAN, KEARA Attending Unavailable MILO, CHALON Primary Care Unavailable YUAN, KEARA Attending Unavailable MILO, CHALON Primary Care Unavailable YUAN, KEARA Referring Unavailable YUAN, KEARA Attending Unavailable MILO, CHALON Primary Care Unavailable YUAN, KEARA Referring Unavailable Milo, Chalon Referring Unavailable Milo, Chalon Attending Unavailable Milo, Chalon Primary Care Unavailable Milo, Chalon Primary Care Unavailable Kevin CRITICAL POWER INSTALL TECHNICIAN, Gabby Referring Unavailable Kevin CRITICAL POWER INSTALL TECHNICIAN, Gabby Attending Unavailable Gudz, Saw Attending Unavailable Milo, Chalon Primary Care Unavailable Gudz, Saw Referring Unavailable Milo, Chalon Referring Unavailable Milo, Chalon Primary Care Unavailable Milo, Chalon Attending Unavailable Milo, Chalon Primary Care Unavailable Tony Penaloza Attending Unavailable Villafana, Daniel Referring Unavailable Villafana, Daniel Attending Unavailable Milo, Chalon Primary Care Unavailable Milo, Chalon Primary Care Unavailable Demetra, [place] Attending Unavailable Brown CRITICAL POWER INSTALL TECHNICIAN, Gabby Referring Unavailable Milo, Chalon Primary Care Unavailable Kevin CRITICAL POWER INSTALL TECHNICIAN, Gabby Attending Unavailable Milo, Chalon Primary Care Unavailable Demetra, [place] Attending Unavailable Milo, Chalon Primary Care Unavailable Demetra, [place] Attending Unavailable Villafana, Daniel Attending Unavailable Milo, Chalon Primary Care Unavailable Milo, Chalon Referring Unavailable Milo, Chalon Referring Unavailable Villafana, Daniel Attending Unavailable Milo, Chalon Primary Care Unavailable Milo, Chalon Referring Unavailable Milo, Chalon Primary Care Unavailable Melodie Wise Attending Unavail able Milo, Chalon Referring Unavailable Milo, Chalon Primary Care Unavailable Milo, Chalon Attending Unavailable Milo, Chalon Attending Unavailable Milo, Chalon Primary Care Unavailable Miol, Chalon Referring Unavailable Usman, Renetta Referring Unavailable Usman, Renetta Attending Unavailable Milo, Chalon Primary Care Unavailable Milo, Chalon Primary Care Unavailable Milo, Chalon Referring Unavailable Kevin CRITICAL POWER INSTALL TECHNICIAN, Gabby Attending Unavailable Melodie Wise Consulting Unavail able DemetraQue bess Attending Unavailable Aiden DURÁN, Melodie Costa Referring Unavail able Milo, Chalon Primary Care Unavailable Milo, Chalon Referring Unavailable Milo, Chalon Attending Unavailable Milo, Chalon Primary Care Unavailable Milo, Chalon Primary Care Unavailable Melodie Wise Referring Unavail able Melodie Wise Attending Unavail able Milo, Chalon Primary Care Unavailable Kevin CRITICAL POWER INSTALL TECHNICIAN, Gabby Referring Unavailable Kevin CRITICAL POWER INSTALL TECHNICIAN, Gabby Attending Unavailable GRADISAR, ROBERT M Referring Unavailable GRADISAR, ROBERT M Referring Unavailable GRADISAR, ROBERT M Referring Unavailable GRADISAR, ROBERT M Referring Unavailable GRADISAR, ROBERT M Referring Unavailable GRADISAR, ROBERT M Referring Unavailable GRADISAR, ROBERT M Referring Unavailable GRADISAR, ROBERT M Referring Unavailable GRADISAR, ROBERT M Referring Unavailable GRADISAR, ROBERT M Referring Unavailable GRADISAR, ROBERT M Referring Unavailable GRADISAR, ROBERT M Referring Unavailable GRADISAR, ROBERT M Referring Unavailable GRADISAR, ROBERT M Referring Unavailable GRADISAR, ROBERT M Referring Unavailable Allergies Allergy Classification Reported Allergen(s) Allergy Type Date of Onset Reaction(s) Facility (1 source) Sulfonamides (Antibiotic); Translations: [sulfa drugs] Propensity to adverse reactions to drug (disorder) [facility] Repository (2 sources) Sulfonamides (Antibiotic) Propensity to adverse reactions to drug 0 [place], [place] (5 sources) Sulfacetamide Drug Allergy 6 [facility] Work Phone: (20 sources) Sulfonamides (Antibiotic); Translations: [SULFA (SULFONAMIDE ANTIBIOTICS)] Allergy to substance 5 [facility] (1 source) ALLERGIES NOT ON FILE; Translations: [ALLERGIES NOT ON FILE] Propensity to adverse reactions (disorder) [facility] 2 Repository Medications Current Medications Medication Drug Class(es) Dates Sig (Normalized) Sig (Original) acetaminophen 500 mg oral tablet (15 sources) Start: 12-02-2019 acetaminophen (TYLENOL) 500 mg tablet Take by mouth. 12/02/2019 Active Comment on above: Take by mouth. acetaminophen 325 mg / oxyCODONE hydrochloride 5 mg oral tablet (1 source) Opioid Agonist oxycodone-acetam chidi phen 5 mg-325 mg tablet as needed for pain active Yuliet Arnold [facility] aspirin 81 mg delayed release oral tablet (3 sources) Platelet Aggregation Inhibitor, Nonsteroidal Anti-inflammatory Drug take 1 tablet by mouth once daily aspirin 81 mg tablet 1 tablet by mouth once a day active Yuliet Arnold [facility] atorvastatin 20 mg oral tablet (16 sources) HMG-CoA Reductase Inhibitor Start: 03-17-2024 take 1 tablet by mouth once daily Atorvastatin 20 mg tablet Active 20 mg PO daily April 11, 2024 1:00am take 1 tablet by mouth once leda y atorvastatin 40 mg tablet 1 tablet by mouth once a day active Yuliet Arnold [facility] azithromycin 250 mg oral tablet (4 sources) Macrolide Antimicrobial azithrom ycin 250 mg tablet active Nikia Perla AT [facility] benoxinate hydrochloride 4 mg/ml / fluorescein sodium 3 mg/ml ophthalmic solution (6 sources) Diagnostic Dye Start: 02-21-2024 End: 02-21-2024 fluorescein-benoxinate 0.3-0.4 % 1 Drop (FLURESS) Start: 11-08-2023 [...] 2018 12:00am April 11, 2024 9:59am pain take 1 capsule by mo ut once daily duloxetine 30 mg capsule,delayed release 1 capsule by mouth once a day active Yuliet Arnold AT[facility] duloxetine HCl ( CYMBALTA ORAL) Take 90 [...] on above: Take 2 capsules by m outh three times daily for 30 days. ICaps AREDS 4,296 mcg-226 mg-90 mg capsule (4 sources) take 1 capsule by mouth twice daily ICaps AREDS 4,296 mcg-226 mg-90 mg capsule 1 capsule by mouth twice a day active Nikia Perla AT [facility] linaclotide 0.145 mg oral capsule (15 sources) [...] at bedtime. Multivitamin preparation (20 sources) Start: 0 take 1 tablet by mouth once daily [...] Until Sophia 06/05/24 at 2229, Administer for dilation PROTECT FROM LIGHT, OPHT CLINIC MED ORDERS Start: 11-08-2023 End: 11-09-2023 PHENYLephrine 2.5 % 1 Drop ( AK-DILATE, FRANCESCA-SYNEPHRINE) Start: 05-10-2023 End: 05-10-2023 PHENYLephrine 2.5 % 1 Drop ( AK-DILATE, FRANCESCA-SYNEPHRINE) Start: 05-07-2023 End: 05-08-2023 PHENYLephrine 2.5 % 1 Drop ( AK-DILATE, FRANCESCA-SYNEPHRINE) pregabalin 75 mg oral capsule (16 sources) Start: 02-02-2021 End: 05-03-2021 take 1 capsule by mouth three times daily pregabalin (LYRICA) 75 mg capsule Take 75 mg by mouth three times daily. 03/18/2021 Active Comment on above: Take 75 mg by mouth three times daily. proparacaine hydrochloride 5 mg/ml ophthalmic solution (10 sources) Local Anesthetic Start: 08-07-2024 End: 08-07-2024 proparacaine 0.5 % 1 drop (ALCAINE) Start: 08-07-2024 End: 08-07-2024 1 drop, BOTH EYES, DIRECT ED, Starting on Sophia 6 at 0900, Until Sophia 6//25 at 2059, Administer for pneumo tonometry, tonopen [...] on Sophia 06/05/24 at 1030, Until Sophia 4//25 at 2229, [...] BEDTIME May 18, 2022 12:00am traMADol hydrochloride 50 mg oral tablet (6 sources) Opioid Agonist Start: 09-30-2024 tramadol 50 mg tablet Take 1 tablet by mouth every eight hours for pain active Sean Sarkar MD, [address] [place] [address] [facility] Start: 04-26-2022 take 100 mg by mouth twice zabrina ly Tramadol Active 100 MG PO TWICE A [...] AREDS ORAL) Take by mouth. Active Vitamins A,C,V-Wiph-Vrmpbv (Preservision Areds) 4,296 mcg-226 mg-90 mg capsule (7 sources) Start: 07-19-2023 Vitamins A,C,E -Zinc-Copper (Preservision [...] tablets by mouth once daily CALCIUM 1200 0422-5640 MG-UNIT CHEW 2 tablet by mouth once a day CALCIUM CARBONATE-VIT D-MIN Veronica Rivera AT Cholecalciferol (1 source) Vitamin D Start: 11-30-2016 take 1 capsule by mouth once daily SM VITAMIN D3 50 MCG (2000 UT) CAPS Take 1 by mouth once a day cholecalciferol (vitamin d3) [id number] Veronica Rivera AT faricimab-svoa intravitreal injection 6 [...] by m out once a day triamterene-hydrochlorothiazid [id number] Clare Reyes LPN Start: 01-09-2005 TRIAMTERENE-HY DROCHLOROTHIAZID [...] by mouth. methylPREDNISolone 4 mg oral tablet (4 sources) Corticosteroid Start: 2024 End: 2024 Methylprednisolone 4 mg tablets,dose pack Discontinued mg PO July 11, 2024 12:00am September 12, 2024 9:47am MULTIPLE VITAMINS-MINERALS (1 source) Start: 2016 take 1 tablet by mouth once daily MULTIVITAMIN ADULT TABS Take 1 by mouth once a day MULTIPLE VITAMINS-MINERALS Veronica Rivera AT Multivitamin tablet (7 sources) Start: 2019 End: 2023 Multivitamin tablet Discontinued 1 {tbl} PO DAILY January 21, 2020 1:00am January 09, 2024 11:26am omeprazole 40 mg delayed release oral capsule (18 sources) Proton Pump Inhibitor Start: 2022 End: 2023 take 1 capsule by mouth once daily Omeprazole 40 mg capsule,delayed release(DR/EC) Discontinued 40 mg PO DAILY 01 09November 02, 2022 12:00am January 09, 2024 11:26am potassium chloride 10 meq extended release oral capsule (20 sources) Start: 2023 End: 2024 take 1 capsule by mouth once daily as needed Potassium Chloride 10 mEq capsule, extended release Discontinued 10 meq PO DAILY as needed September 12, 2024 9:47am September 17, 2024 11:27pm Start: 02-06-2022 End: 09-27-2023 take 10 mEq by mouth once daily Potassium Chloride 20 mEq tablet extended release Discontinued 10 meq PO DAILY 45 December 19, 2022 2:14pm September 27, 2023 3:17pm Start: 02-06-2022 End: 12-19-2022 take 10 mEq by mouth once daily Potassium Chloride Active 10 MEQ PO DAILY 45 December 19, 2022 2:14pm Start: 02-06-2022 take 10 mEq by mouth twice daily Potassium Chloride Active 10 MEQ PO TWICE A DAY February 06, 2022 9:15am Start: 01-18-2022 End: 02-06-2022 take 1 tablet by mouth twice daily Potassium Chloride 20 mEq tablet extended release Discontinued 20 meq PO TWICE A DAY 60 January 18, 2022 1:00am February 06, 2022 9:15am take 1 tablet by cholo th once daily as needed potassium chloride ER 10 mEq tablet,extended release 1 tablet by mouth once a day as needed as directed active Yuliet Arnold ATC [facility] potassium chlori de in water 10 mEq/100 mL Inject 10 mEq intravenously one time only. Active Comment on above: Inject 10 mEq intrav enously one time only. predniSONE 1 mg oral tablet (20 sources) Start: End: take 1 tablet by mouth every other [...] failure, unspecified] 01-23-2022 Episodic Acute cerebrovascular disease (7 sources) Cerebellar infarction; Translations: [Cerebral infarction, unspecified] Onset: 5 09-12-2024 Chronic Aortic and peripheral arterial embolism or thrombosis (15 sources) Vascular disorder; Translations: [Embolism and thrombosis of unspecified artery] Onset: 5 02-01-2005 Chronic Biliary tract disease (20 sources) Calculus of gallbladder with cholecystitis; Translations: [Calculus of gallbladder with chronic cholecystitis without obstruction] 05-26-2022 Episodic Cataract (20 sources) Bilateral pseudophakia; Translations: [Presence of intraocular lens] Onset: 6 Chronic Chronic kidney disease (4 sources) Chronic kidney disease; Translations: [Chronic kidney disease, unspecified] Onset: 4 02-18-2024 Chronic Chronic kidney disease (1 source) Chronic kidney disease; Translations: [Chronic kidney disease, stage 3b] Onset: 5 Deficiency and other anemia (20 sources) Anemia; Translations: [Anemia, unspecified] 01-23-2022 Episodic Essential hypertension (20 sources) Essential hypertension; Translations: [Essential (primary) hypertension] Chronic Fluid and electrolyte disorders (20 sources) Hypokalemia; Translations: [Hypokalemia] 01-18-2022 Episodic Headache; including migraine (2 sources) Headache; Translations: [Headache] 09-18-2024 Episodic Headache; including migraine (1 source) Headache; including migraine; Translations: [Headache, unspecified] Onset: Joint disorders and dislocations; trauma-related (4 sources) Disorder of articular cartilage of right hip; Translations: [Other articular cartilage disorders, right hip] Onset: 5 07-23-2024 Chronic Malaise and fatigue (17 sources) Fatigue; Translations: [Other fatigue] 12-13-2022 Episodic Nonspecific chest pain (20 sources) Other chest pain; Translations: [Chest pain] Onset: 3 Episodic Osteoarthritis (10 sources) Unilateral primary osteoarthritis, right hip; Translations: [Osteoarthrosis, localized, primary, pelvic region and thigh] Onset: 3 08-29-2024 Chronic Other acquired deformities (10 sources) Scoliosis of lumbar spine; Translations: [Scoliosis, unspecified] 04-11-2024 Chronic Other aftercare (4 sources) Aftercare following joint replacement surgery; Translations: [Aftercare following joint replacement] Onset: 5 11-06-2024 Chronic Other circulatory disease (1 source) History of cerebrovascular accident; Translations: [Personal history of transient ischemic attack (TIA), and cerebral infarction without residual deficits] 09-26-2024 Episodic Other congenital anomalies (15 sources) Hereditary lymphedema; Translations: [Hereditary lymphedema] Onset: 5 01-09-2005 Chronic Other connective tissue disease (3 sources) Presence of right artificial hip joint; Translations: [Hip joint replacement] Onset: 5 12-02-2024 Chronic Other connective tissue disease (10 sources) History of lumbar fusion; Translations: [Arthrodesis status] 04-11-2024 Episodic Other fractures (20 sources) Fracture of [...] dyspnea] 02-01-2022 Episodic Other lower respiratory disease (1 source) Shortness of breath; Translations: [Shortness of breath] Onset: 5 Episodic Other nervous system disorders (5 sources) Piriformis syndrome; Translations: [Lesion of sciatic nerve, right lower limb] Onset: 7 01-31-2017 Chronic Other nervous system disorders (14 sources) Cervical myelopathy; Translations: [Disease of spinal cord, unspecified] 04-11-2024 Chronic Other nervous system disorders (1 source) Disease of spinal cord, unspecified; Translations: [Disease of spinal cord, unspecified] Onset: 5 Chronic Other nervous system disorders (12 sources) Abnormal gait; Translations: [Abnormality of gait] Episodic Other nervous system disorders (2 sources) Unspecified abnormalities of gait and mobility; Translations: [Unspecified abnormalities of gait and mobility] Onset: 5 Episodic Other non-traumatic joint disorders (8 sources) Hip pain; Translations: [Pain in right hip] 07-11-2024 Episodic Other non-traumatic joint disorders (1 source) Pain in left knee; Translations: [Pain in left knee] Onset: 5 Episodic Other screening for suspected conditions (not mental disorders or infectious disease) (20 sources) Electrocardiogram abnormal; Translations: [Abnormal electrocardiogram [ECG] [EKG]] Onset: 5 01-18-2022 Episodic Retinal detachments; defects; vascular occlusion; and retinopathy (20 sources) Bilateral drusen of maculae; Translations: [Drusen (degenerative) of macula, bilateral] Onset: 6 Chronic Spondylosis; intervertebral disc disorders; other back problems (19 sources) Lumbar spondylosis; Translations: [Spondylosis without myelopathy or radiculopathy, lumbar region] Onset: 7 01-10-2021 Chronic Unclassified (1 source) Refraction Onset: 5 Past or Other Problems Problem Classification Problem Date Documented Da te Episodic/Chronic Blindness and vision defects (20 sources) Bilateral regular astigmatism; Translations: [Regular astigmatism, bilateral] Onset: 08-05-2015 Episodic Conditions associated with dizziness or vertigo (1 source) Dizziness and giddiness; Translations: [Dizziness and giddiness] Onset: 07-09-2024 Episodic Inflammation; infection of eye (except that caused by tuberculosis or sexually transmitteddisease) (15 sources) Keratitis; Translations: [Other keratitis] Onset: 10-12-2017 10-12-2017 Episodic Other acquired deformities (5 sources) Lumbar spondylolisthesis; Translations: [Spondylolisthesis, lumbar region] Onset: 01-10-2021 01-10-2021 Episodic Other and unspecified benign neoplasm (4 sources) Lipoma of lower back; Translations: [Benign lipomatous neoplasm of skin and subcutaneous tissue of trunk] Onset: 02-18-2024 02-18-2024 Episodic Other bone disease and musculoskeletal deformities (20 sources) Osteopenia; Translations: [Other specified disorders of bone density and structure, unspecified site] Onset: 02-16-2021 02-16-2021 Episodic Other connective tissue disease (5 sources) Disorder of tendon; Translations: [Unspecified disorder of synovium and tendon, left thigh] Onset: 07-04-2019 07-04-2019 Episodic Other connective tissue disease (5 sources) Hamstring injury; Translations: [Other specified enthesopathies of unspecified lower limb, excluding foot] Onset: 07-04-2019 07-04-2019 Episodic Other connective tissue disease (5 sources) Gluteal tendinitis; Translations: [Unspecified disorder of synovium and tendon, other site] Onset: 01-04-2016 01-04-2016 Episodic Other connective tissue disease (6 sources) Trochanteric bursitis, right hip; Translations: [Enthesopathy of hip region] Onset: 01-04-2016 01-04-2016 Episodic Other connective tissue disease (4 sources) Muscle pain; Translations: [Myalgia, unspecified site] Onset: 11-14-2023 11-14-2023 Episodic Other connective tissue disease (1 source) Unspecified disorder of synovium and tendon, other site; Translations: [Unspecified disorder of synovium and tendon, other site] Onset: 09-01-2024 Episodic Other eye disorders (16 sources) Alternating esotropia; Translations: [Alternating esotropia with other noncomitancies] Onset: 08-05-2015 Episodic Other eye disorders (15 sources) Bilateral senile ectropion of lower eyelids; Translations: [Senile ectropion of right lower eyelid] Onset: 10-18-2017 10-18-2017 Episodic Other lower respiratory disease (2 sources) Other forms of dyspnea; Translations: [Other forms of dyspnea] Onset: 03-24-2024 Episodic Other non-traumatic joint disorders (4 sources) Disorder of hip joint; Translations: [Other specified joint disorders, right hip] Onset: 07-23-2024 07-23-2024 Episodic Other non-traumatic joint disorders (1 source) Other specified joint disorders, right hip; Translations: [Other specified joint disorders, right hip] Onset: 09-01-2024 Episodic Other non-traumatic joint disorders (1 source) Pain in unspecified hip; Translations: [Pain in unspecified hip] Onset: 06-04-2024 Episodic Spondylosis; intervertebral disc disorders; other back problems (20 sources) Sacroiliac joint pain; Translations: [Disorders of sacrum] Onset: 11-30-2016 02-16-2021 Episodic Sprains and strains (20 sources) Strain of muscle and/or tendon of thigh; Translations: [Sprains and strains of other specified sites of hip and thigh] Onset: 12-02-2019 12-02-2019 Episodic Unclassified (1 source) Problem Results Test Name Value Interpretation Reference Range Facility Relevant diagnostic tests/la boratory data Narrativeon 01-13-2025 Fall risk assessment no AYESHA Knok Work Phone: MEDS REVIEW Documentation of current medications (procedure) [facility] Work Phone: MEDS REVIEWD Medications reviewed without changes [facility] Work Phone: Knee 4 or More Viewson 12-23 Knee 4 or More Views [facility] Imaging Services [address] [place], [place] [address] Knee 4 or More Views MR#: [id number] Acct: [id number] Name: IVONNE MAYA Rep #: [id number] : 1950 F 74 From: Yosi Ackerman MD PCP: Dr. Maritza Ren MD Status: REG CLI Study: Knee 4 or More Views Date of Exam: 12/23/24 Exam# [id number] Ordering Dr: Maritza Ren MD EXAM: XR Left Knee Complete, 4 or More Views CLINICAL INDICATION: LEFT KNEE PAIN TECHNIQUE: Four or more views of the left knee. COMPARISON: No relevant prior studies available. FINDINGS: BONES/JOINTS: Removal of tibial plate in the medial compartment. Arthroplastic component of the medial femoral condyle. No acute fracture. No dislocation. SOFT TISSUES: Soft tissue swelling. RAD/Knee 4 or More Views IMPRESSION: Postoperative changes as above. Reading Location: [id number] CC: Dr. Maritza Ren MD Rate Engineer: Signed Normal [facility] SCRN MAMM (CAD)W/MARIBEL BILATo n 12-10-2024 SCRN MAMM (CAD)W/MARIBEL BILAT [facility] Imaging Services [address] [place] [id number] SCRN MAMM (CAD)W/MARIBEL BILAT MR#: [id number] Acct: [id number] Name: IVONNE MAYA Rep #: [id number] : 1950 F 74 From: Pedro Luis hardwick MD PCP: Dr. Maritza Ren MD Status: REG CLI Study: SCRN MAMM (CAD)W/MARIBEL BILAT Date of Exam: 10/27 Exam# [id number] Ordering Dr: Maritza Ren MD EXAM: SCRN MAMM (CAD)W/MARIBEL BILAT DATE: 12/10/2024 CLINICAL HISTORY: F, Age 74 y/o , SCREENING FOR BREAST CANCER No family history. TECHNIQUE: Procedure Code: BISMWCADBTOM Modality: MG Procedure: SCRN MAMM (CAD)W/MARIBEL BILAT COMPARISON: Prior exam(s) dated June 12, 2022.. FINDINGS: TISSUE DENSITY: The breasts are almost entirely fatty. Bilateral Breast Mammographic Findings: No significant masses, calcifications or other abnormalities are identified. No suspicious masses, areas of developing architectural distortion, or suspicious calcifications. There has been no significant interval change. BI/SCRN MAMM (CAD)W/MARIBEL BILAT IMPRESSION: Stable bilateral screening mammogram. OVERALL FINAL ASSESSMENT BI-RADS 1: NEGATIVE. RECOMMENDATION: Routine annual follow-up in 1 Year Additional Recommendation none A letter with findings and recommendations will be mailed to the patient. Reading Location: [id number] CC: Dr. Maritza Ren MD Rate Engineer: Signed Normal [facility] Relevant diagnostic tests/la boratory data Narrativeon 12-02-2024 Fall risk assessment no [employer] Work Phone: MEDS REVIEW Documentation of current medications (procedure) [employer] Work Phone: MEDS REVIEWD Medications reviewed with [employer] Work Phone: Relevant diagnostic tests/la boratory data Narrativeon 11-06-2024 Fall risk assessment no [employer] Work Phone: MEDS REVIEW Done [employer] Work Phone: MEDS REVIEWD Medications reviewed with [employer] Work Phone: Echo Completeon 10-08-2024 Echo Complete [facility] Cardiovascular Services [address] [place] [address] Echo Complete 10/08/24 1259 MR#: [id number] Acct: [id number] Name: IVONNE MAYA Rep #: [id number] : 1950 74 From: Que Mccrary MD Attending Dr: Gabby Brown CRITICAL POWER INSTALL TECHNICIAN-C Status: [facility] Ordering Dr: Gabby Brown NP Date: 10/08/24 Location: [facility] Sex: F C Admitted: Reason For Study Reason For Study: SOB, TIA/CVA Procedure This was a 2D Doppler, Color Flow transthoracic echocardiogram. Exam performed in department. Left Ventricle Normal LV size. The left ventricular ejection fraction is 65 %. No regional wall motion abnormalities noted. Right Ventricle Normal RV size. Normal systolic function. Atria Normal left atrium. Normal right atrium. Mitral Valve There is mild mitral annular calcification. Mild (1+) eccentric mitral valve insufficiency. Tricuspid Valve Normal tricuspid valve. Mild (1+) tricuspid valve insufficiency. Pulmonary artery systolic pressure is 25 mmHg. Aortic Valve Trisinus/trileaflet aortic valve. Mild focal aortic valve calcification. Mild aortic stenosis. Mild (1+) aortic valve insufficiency. Pulmonic Valve Normal pulmonic valve. Great Vessels Normal aortic root. The pulmonary artery is normal size. Inferior vena cava collapse with respiration. Pericardium/Pleural No pericardial effusion. MMode/2D Measurements Calculations LVIDd: 4.7 cm IVSd: 1.1 cm LVOT diam: 2.0 cm LVIDs: 3.0 cm LVPWd: 0.94 cm LVOT area: 3.0 cm2 RVDd: 2.8 cm FS: 35.7 % asc Aorta Diam: 3.3 cm LAV(MOD-bp): 34.6 ml LVAd ap4: 20.7 cm2 LAV(MOD-bp) Indexed: 20.4 ml/m2 LVLd ap4: 6.8 cm LAV(MOD-sp2): 36.2 ml EDV(MOD-sp4): 52.7 ml LAV(MOD-sp4): 33.5 ml EDV(sp4-el): 53.7 ml LVAs ap4: 11.1 cm2 LVLs ap4: 5.7 cm ESV(MOD-sp4): 18.9 ml ESV(sp4-el): 18.5 ml EF(MOD-sp4): 64.2 % EF(sp4-el): 65.5 % LVAd ap2: 17.9 cm2 SV(MOD-sp4): 33.8 ml SV(MOD-sp2): 25.6 ml LVLd ap2: 6.8 cm SI(MOD-sp4): 19.9 ml/m2 SI(MOD-sp2): 15.1 ml/m2 EDV(MOD-sp2): 41.3 ml EDV(sp2-el): 40.2 ml LVAs ap2: 10.1 cm2 LVLs ap2: 5.8 cm ESV(MOD-sp2): 15.7 ml ESV(sp2-el): 15.0 ml EF(MOD-sp2): 62.0 % SV(sp4-el): 35.2 ml Ao sinus diam: 3.[address] Junction: 2.7 cm LA dimension(2D): 3.1 cm LA A4 area: 14.9 cm2 RA A4 area: 10.2 cm2 TAPSE: 2.0 cm Time Measurements MV dec time: 0.20 sec Doppler Measurements Calculations MV E max freddie: 62.6 cm/sec Lat Peak E' Freddie: 11.4 cm/sec Med Peak E' Freddie: 10.2 cm/sec MV A max freddie: 84.3 cm/sec E/E' lat: 5.5 E/E' med: 6.1 MV E/A: 0.74 MV dec slope: 313.2 cm/sec2 Ao V2 max: 193.2 cm/sec AI max freddie: 428.3 cm/sec Ao max P.9 mmHg AI max P.4 mmHg Ao V2 mean: 131.8 cm/sec AI dec slope: 269.4 cm/sec2 Ao mean P.0 mmHg AI P1/2t: 465.6 msec Ao V2 VTI: 40.6 cm AV (velocity ratio): 0.56 COLTON(I,D): 1.7 cm2 COLTON(V,D): 1.8 cm2 LV V1 max: 114.1 cm/sec SV(LVOT): 68.6 ml PA V2 max: 86.5 cm/sec LV V1 max P.2 mmHg LV V1 mean P.2 mmHg LV V1 mean: 83.6 cm/sec LV V1 VTI: 22.7 cm TR max freddie: 236.3 cm/sec TR max P.3 mmHg ECHO/Echo Complete Interpretation Summary Normal LV size. The left ventricular ejection fraction is 65 %. Mild (1+) eccentric mitral valve insufficiency. Mild focal aortic valve calcification. Mild (1+) aortic valve insufficiency. Mild aortic stenosis. Ordering Physician: Gabby Brown Referring Physician: Gabby Brown Performed By: Dianne Dobbins RDCS 10/08/24 172 Date Que Mccrary MD CC: LYNDA Brown; Dr. Maritza Ren MD Date Dictated: 10/08/24 1259 Date Transcribed: 10/08/24 172 Rate Engineer: Signed [facility] Echocardiogram study reportO rdered By: Que Mccrary on 10-08-2024 Study report [facility] Cardiovascular [place] [address] Echo Complete 10/08/24 1259 MR#: [id number] Acct: [id number] Name: IVONNE MAYA Rep #:[id number] : 1950 74 From: Que Hassan Attending Dr: Gabby Brown, CRITICAL POWER INSTALL TECHNICIAN-C Glory tatus: REG CLI Ordering Dr: Gabby Brown NP CRITICAL POWER INSTALL TECHNICIAN-C Charles e: 10/08/24 Location: [facility] Sex: F C Admitted: Reason For Study Reason For Study: SOB, TIA/CVA Procedure This was a 2D Doppler, Color Flow transthoracic echocardiogram. Exam performed in department. Left Ventricle Normal LV size. The left ventricular ejection fraction is 65 %. No regional wallmotion abnormalities noted. Right Ventricle Normal RV size. Normal systolic function. Atria Normal left atrium. Normal right atrium. Mitral Valve There is mild mitral annular calcification. Mild (1+) eccentric mitral valve insufficiency. Tricuspid Valve Normal tricuspid valve. Mild (1+) tricuspid valve insufficiency. Pulmonary artery systolic pressure is 25 mmHg. Aortic Valve Trisinus/trileaflet aortic valve. Mild focal aortic valve calcification. Mild aortic stenosis. Mild (1+) aortic valve insufficiency. Pulmonic Valve Normal pulmonic valve. Great Vessels Normal aortic root. The pulmonary artery is normal size. Inferior vena cava collapse with respiration. Pericardium/Pleural No pericardial effusion. MMode/2D Measurements & Calculations LVIDd: 4.7 cm IVSd: 1.1 cm LVOT diam: 2.0 cm LVIDs: 3.0 cm LVPWd: 0.94 cm LVOT area: 3.0 cm2 RVDd: 2.8 cm FS: 35.7 % asc Aorta Diam: 3.3 cm LAV(MOD-bp): 34.6 ml LVAd ap4: 20.7 cm2 LAV(MOD-bp) Indexed: 20.4 ml/m2 LVLd ap4: 6.8 cm LAV(MOD-sp2): 36.2 ml EDV(MOD-sp4): 52.7 ml LAV(MOD-sp4): 33.5 ml EDV(sp4-el): 53.7 ml LVAs ap4: 11.1 cm2 LVLs ap4: 5.7 cm ESV(MOD-sp4): 18.9 ml ESV(sp4-el): 18.5 ml EF(MOD-sp4): 64.2 % EF(sp4-el): 65.5 % LVAd ap2: 17.9 cm2 SV(MOD-sp4): 33.8 ml SV(MOD-sp2): 25.6 ml LVLd ap2: 6.8 cm SI(MOD-sp4): 19.9 ml/m2 SI(MOD-sp2): 15.1 ml/m2 EDV(MOD-sp2): 41.3 ml EDV(sp2-el): 40.2 ml LVAs ap2: 10.1 cm2 LVLs ap2: 5.8 cm ESV(MOD-sp2): 15.7 ml ESV(sp2-el): 15.0 ml EF(MOD-sp2): 62.0 % SV(sp4-el): 35.2 ml Ao sinus diam: 3.[address] Junction: 2.7 cm LA dimension(2D): 3.1 cm LA A4 area: 14.9 cm2 RA A4 area: 10.2 cm2 TAPSE: 2.0 cm Time Measurements MV dec time: 0.20 sec Doppler Measurements & Calculations MV E max freddie: 62.6 cm/sec Lat Peak E' Freddie: 11.4 cm/sec Med Peak E' Freddie: 10.2 cm/sec MV A max freddie: 84.3 cm/sec E/E' lat: 5.5 E/E' med: 6.1 MV E/A: 0.74 MV dec slope: 313.2 cm/sec2 Ao V2 max: 193.2 cm/sec AI max freddie: 428.3 cm/sec Ao max P.9 mmHg AI max P.4 mmHg Ao V2 mean: 131.8 cm/sec AI dec slope: 269.4 cm/sec2 Ao mean P.0 mmHg AI P1/2t: 465.6 msec Ao V2 VTI: 40.6 cm AV (velocity ratio): 0.56 COLTON(I,D): 1.7 cm2 COLTON(V,D): 1.8 cm2 LV V1 max: 114.1 cm/sec SV(LVOT): 68.6 ml PA V2 max: 86.5 cm/sec LV V1 max P.2 mmHg LV V1 mean P.2 mmHg LV V1 mean: 83.6 cm/sec LV V1 VTI: 22.7 cm TR max freddie: 236.3 cm/sec TR max P.3 mmHg ECHO/Echo Complete Interpretation Summary Normal LV size. The left ventricular ejection fraction is 65 %. Mild (1+) eccentric mitral valve insufficiency. Mild focal aortic valve calcification. Mild (1+) aortic valve insufficiency. Mild aortic stenosis. Ordering Physician: Gabby Brown Referring Physician: Gabby Brown Performed By: Shilpi, Dianne, RDCS 10/08/24 1723 Date _ Que Mccrary MD CC: LYNDA Brown; Dr. Maritza Ren MD ~ Date Dictated: 10/08/24 1259 Date Transcribed: 10/08/24 172 Rate Engineer: Signed [facility] Work Phone: Relevant diagnostic tests/la boratory data Narrativeon 10-08-2024 Fall risk assessment no [facility] Work Phone: MEDS REVIEW Documentation of current medications (procedure) [facility] Work Phone: MEDS REVIEWD Medications reviewed without changes [facility] Work Phone: MRI HX of the hip on 06/19/2024 at [facility] Work Phone: Emergency Department Summary on 09-18-2024 Emergency Department Summary [facility] Medical Records Department [address] [place] [address] Emergency Department Summary 09/18/24 MR#: [id number] Acct: [id number] Name: IVONNE MAYA Rep #: [id number] : 1950 74 From: Tony Penaloza DO PCP: Dr. Maritza Ren MD Status:DEP ER Location: ED HPI History of Present Illness Chief Complaint: Headache Informant: patient, spouse/S.O. and family Narrative Narrative: Patient is a 74-year-old female with past medical history of hypertension as well as previous CVA. She states that ever since her previous stroke she will have intermittent headaches. She states that this evening she developed 1 of those headaches but it typically resolves quickly and this 1 has not improved/resolved over the last few hours. She states has been no recent trauma she denies any history of blood thinner use and she states that there has been no sick symptoms. However because of the persistent headache there was concern this could be neurologic in nature and she was brought in for evaluation [facility] Medical History (Reviewed 09/12/24 @ 13:16 by Gabby Brown CRITICAL POWER INSTALL TECHNICIAN, CRITICAL POWER INSTALL TECHNICIAN-C) Preop cardiovascular exam Wears glasses History of steroid therapy Fatty liver History of renal disease Former smoker Shortness of breath on exertion History of echocardiogram History of stress test Cardiology follow-up encounter Deep vein thrombophlebitis of right leg (1965) Lymphedema Essential hypertension Osteoarthritis Varicose vein of leg Home Medications ???Medication ???Instructions ???Recorded ???Last Taken ???Type calcium 315 mg (as 1 tab PO DAILY 01/21/20 Unknown Hi story citrate)-vitamin D3 6.25 mcg (250 unit) tablet (Citracal + Vitamin D Maximum) vitamins A,C,A-jmqx-jdwlcz 4,296 1 cap PO BID 07/19/23 Unknown Hist ory mcg-226 mg-90 mg capsule (PreserVision AREDS) atorvastatin 20 mg tablet 20 mg PO QDAY 04/11/24 Unknown His tory duloxetine 30 mg capsule,delayed 90 mg PO QDAY 04/11/24 Unknown His tory release amlodipine 5 mg tablet 5 mg PO DAILY #90 tabs 08/01/24 Un known Rx Allergy/AdvReac Type Severity Reaction Status Date / Time Sulfa (Sulfonamide Allergy Rash Verified 09/17/24 22:46 Antibiotics) Family History (Reviewed 09/12/24 @ 13:15 by Gabby Brown CRITICAL POWER INSTALL TECHNICIAN, CRITICAL POWER INSTALL TECHNICIAN-C) Mother CVA (cerebral vascular accident), Onset Age: 72 Hypertension Father Cancer Brain Alcoholism Brother Cancer leukemia Atrial fibrillation Surgical History (Reviewed 09/12/24 @ 13:15 by Gabby Brown CRITICAL POWER INSTALL TECHNICIAN, CRITICAL POWER INSTALL TECHNICIAN-C) History of cholecystectomy History of lumbar spinal fusion ( 02/2021) Gluteal tendonitis of right buttock ( 02/2020) History of section History of hysterectomy History of arthroscopy of left knee (2000) Social History (Reviewed 09/12/24 @ 13:15 by Gabby Brown CRITICAL POWER INSTALL TECHNICIAN, CRITICAL POWER INSTALL TECHNICIAN-C) Smoking Status: Former smoker second hand exposure: No alcohol intake: current alcohol intake frequency: a few times a month Alcohol type: beer substance use type: does not use caffeine: Yes Type: coffee Number of servings: 3 ROS ROS ED Constitutional Constitutional ED: Denies chills or fever(s) Eyes Eyes: Denies blurry vision or change in vision ENT ENT ED: Denies sore throat Cardiovascular Cardiovascular: Denies chest pain Respiratory/Chest Respiratory/Chest: Denies cough or dyspnea Gastrointestinal Gastrointestinal: Denies abdominal pain, diarrhea, nausea or vomiting Musculoskeletal Musculoskeletal: Denies neck pain Integumentary Denies rash Neurologic Neurologic: Reports headache(s); Denies paresthesias or weakness Hematologic/Lymphatic Hematologic/Lymphatic : Denies easy bleeding or easy bruising EXAM Physical Exam Const Vital Signs: 09/17/24 22:46 09/17/24 23:46 09/18/24 00:00 Temperature 98.3 F Temperature Source Oral Pulse Rate 82 73 74 Respiratory Rate 18 15 18 Blood Pressure 151/72 H 131/67 H 131/67 H Blood Pressure Mean 98 88 88 Pulse Ox 98 98 98 Oxygen Delivery Method Room Air Room Air Room Air 09/18/24 00:19 Temperature 98 F Temperature Source Pulse Rate 65 Respiratory Rate 18 Blood Pressure 131/68 H Blood Pressure Mean 89 Pulse Ox 99 Oxygen Delivery Method Positive well nourished and well developed General Appearance ED: well developed; Negative for pallor HEENT HEENT Narrative: Normocephalic atraumatic Eyes PERRL and EOMs intact bilaterally General Eye ED: Negative for scleral icterus Neck supple Resp normal respiratory effort and clear to auscultation bilaterally Cardio regular rate and regular rhythm Extremity normal to inspection Neuro oriented x3, CN's II-XII intact bilaterally and no sensory deficits noted Neuro Narrative: GCS of 15 Cranial nerves II through XII are grossly intact t (more content not included)... Normal [facility] Brain/Head without Contrasto n 09-17-2024 Brain/Head without Contrast [facility] Imaging Services [address] [place], [place] [address] Brain/Head without Contrast MR#: [id number] Acct: [id number] Name: IVONNE MAYA Rep #: [id number] : 1950 F 74 From: Christopher Epstein MD PCP: Dr. Maritza Ren MD Status: REG ER Study: Brain/Head without Contrast Date of Exam: 09/02 08/27 Exam# [id number] Ordering Dr: Tony Penaloza DO PROCEDURE: BRAIN/HEAD WITHOUT CONTRAST 09/17/2024 REASON FOR EXAM: HEADACHE TECHNIQUE: BRAIN/HEAD WITHOUT CONTRAST Coronal and Sagittal reconstruction series were provided. One or more dose reduction techniques were used (e.g., Automated exposure control, adjustment of the mA and/or kV according to patient size, use of iterative reconstruction technique. RADIATION DOSE SUMMARY: CTDlvol: 44.99 mGy DLP: 796.11 mGycm COMPARISON: 02/28/2024 FINDINGS: No acute intracranial hemorrhage, extra-axial collection, mass effect or evidence of acute infarct. Mild age-appropriate generalized brain parenchymal volume loss. 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 Absent [place] ocular lenses. Minimal scattered mucosal thickening in the paranasal sinuses with small amount of dependent fluid in the right sphenoid sinus. No mastoid effusions. Intact skull base and calvarium. Probable small benign notochordal remnant in the dorsal clivus. CT/Brain/Head without Contrast IMPRESSION: 1. No acute intracranial abnormality. 2. Mild volume loss and moderate chronic small-vessel ischemic changes. Reading Location: [facility] CC: Dr. Maritza Ren MD; Tony Penaloza DO Rate Engineer: Signed Normal [facility] Cardiology Visit Reporton Cardiology Visit Report [facility] [address] [place] [address] OFFICE VISIT Date of Service: 09/12/24 MR#: [id number] Acct: [id number] Name: IVONNE MAYA Rep #: [id number] : 1950 Provider: LYNDA ware Age/Sex: 73/F Location: [facility] Status: Signed HPI HPI History of Present [...] Monitor Intake Visit Reasons: 1 Y FU Wire Rope Sling Maker Required: No Accompanied by: Self Is patient in pain?: No Allergies Sulfa (Sulfonamide Antibiotics) Allergy (Verified 09/12/24 13:15) Rash Medications ???Medication ???Instructions ???Recorded ???Confirmed ???Type calcium 315 mg (as 1 tab PO DAILY 01/21/20 09/12/24 H istory citrate)-vitamin D3 6.25 mcg (250 unit) tablet (Citracal + Vitamin D Maximum) vitamins A,C,V-plzl-pqcmih 4,296 1 cap PO BID 07/19/23 09/12/24 [...] the past year?: No PFSH Medical History (Reviewed 09/12/24 @ 13:16 by Gabby Brown CRITICAL POWER INSTALL TECHNICIAN, CRITICAL POWER INSTALL TECHNICIAN-C) Preop cardiovascular exam Wears glasses History of [...] and overweight (more content not included)... Normal [facility] OCT MACULA CIRRUS OU (BOTH E YES)on 08-07-2024 [facility] Radiology Study observation (narrative) [facility] VABYSMO (FARICIMAB-SVOA) 6MG INTRAVITREAL INJECTION OS (LEFT EYE)on 08-07-2024 [facility] Inital Evaluation (1) - PTon 07-30-2024 Inital Evaluation (1) - PT [facility] Physical Therapy [facility] [address] [place] [address] / REHABILITATION SERVICES INITIAL EVALUATION MR#: [id number] Acct: [id number] Name: IVONNE MAYA Rep #: [id number] : 1950 73 From: Jaclyn Trevino DPT Referring Dr.: LEEANNA Romero Status: REG RCR Insurance: [employer]ANCE Patient's [...] to be FAXED BACK to us at [phone] for Medicare purposes. For Medicare only, by signing this I certify the plan of care. Please let me know if there are questions or concerns regarding this plan of care. Physician Signature: Date : 07/30/24 (more content not included)... Normal [facility] Cerv Spine 4 or 5 Viewson Cerv Spine 4 or 5 Views [facility] Imaging Services [address] [place] [address] Cerv Spine 4 or 5 Views MR#: [id number] Acct: [id number] Name: IVONNE MAYA Rep #: [id number] : 1950 F 73 From: Rashard giron MD PCP: Dr. Maritza Ren MD Status: DEP AMB Study: Cerv Spine 4 or 5 Views Date of Exam: 07/11/24 Exam# [id number] Ordering Dr: Daniel Villafana MD PROCEDURE: CERV [...] No radiographic evidence of instability. Reading Location: [place] [address] CC: Dr. Maritza Ren MD; Dr. Daniel Villafana MD Rate Engineer: Signed Normal [facility] Orthopedic Visit Reporton Orthopedic Visit Report [facility] [address] [place] [address] [address] [place] [address] OFFICE VISIT Date of Service: 07/11/24 MR#: [id number] Acct: [id number] Name: IVONNE MAYA Rep #: [id number] : 1950 Provider: Dr. Daniel Villafana MD Age/Sex: 73/F Location: [facility] Status: Signed Intake Vital Signs 04/11/24 08:58 [...] PO DAILY #90 tabs 07/19/23 Rx vitamins A,C,K-ojxc-whqtiz 4,296 1 cap PO BID 07/19/23 07/11/24 [...] any injections. The doctor she saw at [facility] did three steroid injections the last being in January which she reports was helpful. She has done PT in the past which she reports has been helpful. Prior to her surgery she did not have any symptoms/pain down into her legs. She tore her gluteus minimus/medius 3 times on the right and had 3 different surger (more content not included)... Normal [facility] Magnetic resonance imaging r eportOrdered By: Josue Bolton on 06-06-2024 Study report [facility] Imaging Services [address] [place] [address] Spine Cervical (Routine) MR#: [id number] Acct: [id number] Name: IVONNE MAYA Rep #: [id number] : 1950 F 73 From: Valery Bolton MD PCP: Dr. Maritza Ren MD Status: REG CL I Study:Spine Cervical (Routine) Date of Exam: 06/04/24 Exam# [id number] Ordering Dr: Allyson Villafana MD PROCEDURE: SPINE [...] neural foraminal narrowing. C3-4: Disc osteophyte complex, npjy-ttouedq-wdnz-rig ht uncinate hypertrophy and facet degenerative changes and moderate canal stenosis. Severe left and mild right neural foraminal narrowing. C4-5: Disc osteophyte complex, uncinate hypertrophy and facet degenerative changes with moderate canal stenosis. Severe bilateral neural foraminal narrowing. C5-6: Disc osteophyte complex, aoice-nldyvgi-qkin-le ft uncinate hypertrophy and facet degenerative changes [...] C5-C6 Reading Location: [facility] CC: Dr. Maritza Ren MD; Dr. Daniel Villafana MD ~ Rate Engineer: Signed [facility] Bone density reportOrdered B y: Pedro Luis Cuadra on 06-05-2024 Study report Skeletal system DXA [facility] Imaging Services [address] [place], [place] [id number] Dexa Bone Density Study MR#: [id number] Acct: [id number] Name: IVONNE MAYA Rep #: [id number] : 1950 F 73 From: Collin Cuadra MD PCP: Dr. Maritza Ren MD Status: REG CL I Study:Dexa Bone Density Study Date of Exam: 06/04/24 Exam# [id number] Ordering Dr: Allyson Villafana MD PROCEDURE: DEXA BONE DENSITY STUDY 06/04/2024 REASON FOR EXAM: PAIN F, age 73 y/o . Postmenopausal. TECHNIQUE: DXA scan of the lumbar spine and both hips, using make and model. [facility]KS[facility] COMPARISON: Comparison is made with [...] Recommend follow-up as clinically warranted. Reading Location: [facility] CC: Dr. Maritza Ren MD; Dr. Daniel Villafana MD ~ Rate Engineer: Signed [facility] OCT ANGIOGRAPHY OU (BOTH EYE S)on 06-05-2024 [facility] Radiology Study observation (narrative) [facility] OCT MACULA CIRRUS OU (BOTH E YES)on 06-05-2024 [facility] Radiology Study observation (narrative) [facility] VABYSMO (FARICIMAB-SVOA) 6MG INTRAVITREAL INJECTION OS (LEFT EYE)on 06-05-2024 [facility] Dexa Bone Density Studyon Dexa Bone Density Study [facility] Imaging Services [address] [place], [place] [address] Dexa Bone Density Study MR#: [id number] Acct: [id number] Name: IVONNE MAYA Rep #: [id number] : 1950 F 73 From: Pedro Luis hardwick MD PCP: Dr. Maritza Ren MD Status: REG CLI Study: Dexa Bone Density Study Date of Exam: 06/04/24 Exam# [id number] Ordering Dr: Daniel Villafana MD PROCEDURE: DEXA BONE DENSITY STUDY 06/04/2024 REASON FOR EXAM: PAIN F, age 73 y/o . Postmenopausal. TECHNIQUE: DXA scan of the lumbar spine and both hips, using make and model. [facility]KS: [facility] COMPARISON: Comparison is made with [...] Recommend follow-up as clinically warranted. Reading Location: [place] [address] CC: Dr. Maritza Ren MD; Dr. Daniel Villafana MD Rate Engineer: Signed Normal [facility] Spine Cervical (Routine)on 0 06-04-2024 Spine Cervical (Routine) [facility] Imaging Services [address] [place] [address] Spine Cervical (Routine) MR#: [id number] Acct: [id number] Name: IVONNE MAYA Rep #: [id number] : 1950 F 73 From: Josue noel MD PCP: Dr. Maritza Ren MD Status: REG CLI Study: Spine Cervical (Routine) Date of Exam: Exam# [id number] Ordering Dr: Daniel Villafana MD PROCEDURE: SPINE [...] neural foraminal narrowing. C3-4: Disc osteophyte complex, ifji-ruztuzj-vmrc-rig ht uncinate hypertrophy and facet degenerative changes and moderate canal stenosis. Severe left and mild right neural foraminal narrowing. C4-5: Disc osteophyte complex, uncinate hypertrophy and facet degenerative changes with moderate canal stenosis. Severe bilateral neural foraminal narrowing. C5-6: Disc osteophyte complex, pjafb-wlublna-vbel-le ft uncinate hypertrophy and facet degenerative changes [...] prominent at C4-C5 and C5-C6 Reading Location: [facility] CC: Dr. Maritza Ren MD; Dr. Daniel Villafana MD Rate Engineer: Signed Normal [facility] HIP, UNI W/ Pelvis 2-3 Views on 06-02-2024 HIP, UNI W/ Pelvis 2-3 Views [facility] Imaging Services [address] [place], [place] [address] HIP, UNI W/ Pelvis 2-3 Views MR#: [id number] Acct: [id number] Name: IVONNE MAYA Rep #: [id number] : 1950 F 73 From: Herb Pichardo MD PCP: Dr. Maritza Ren MD Status: REG CLI Study: HIP, UNI W/ Pelvis 2-3 Views Date of Exam: Exam# [id number] Ordering Dr: Maritza Ren MD PROCEDURE: HIP, UNI W/ PELVIS 2-3 [...] tendinosis of the gluteal tendons. Reading Location: [facility] CC: Dr. Maritza Ren MD Rate Engineer: Signed Normal [facility] Inital Evaluation (1) - PTon 04-14-2024 Inital Evaluation (1) - PT [facility] Physical [facility] [address] [place] [address] / REHABILITATION SERVICES INITIAL EVALUATION MR#: [id number] Acct: [id number] Name: IVONNE MAYA Rep #: [id number] : 1950 73 From: Varsha RUDD Referring Dr.: Dr. Maritza Ren MD Status: REG RCR Insurance: [employer]ANCE Patient's Visit Information Visit Information Visit Information: IVONNE MAYA is a 73 year old F referred to Physical Therapy by Maritza Ren MD with a diagnosis of Vertigo. Date [...] had fluid behind both ear drums. Dr Ren wants to see if it is peripheral. [...] ahead and treat with L Eply R Hallpike was negative for dizziness and nystagmus Repeated [...] to be FAXED BACK to us at [phone] for Medicare purposes. For Medicare only, by signing this I certify the plan of care. Please let me know if there are questions or concerns regarding this plan of care. Physician Signature: Date : 04/14/24 1128 CC: Dr. Maritza Ren MD Signed Normal [facility] Orthopedic Visit Reporton Orthopedic Visit Report [facility] [facility] [address] [place] [address] OFFICE VISIT Date of Service: 04/11/24 MR#: [id number] Acct: [id number] Name: IVONNE MAYA Rep #: [id number] : 1950 Provider: Dr. Daniel Villafana MD Age/Sex: 73/F Location: [facility] Status: Signed Intake [...] PO DAILY #90 tabs 07/19/23 Rx vitamins A,C,N-ykjm-yzfclv 4,296 1 cap PO BID 07/19/23 04/11/24 [...] by me, Dr. Daniel Villafana MD 04/11/24 8330. Part of today???s visit was documented by [...] any injections. The doctor she saw at [facility] did three steroid injections the last [...] had the surgery with Dr. Sarkar at [facility] but Dr. Corona is the one who caught it and referred her to [facility]. The hip surgeries were 2015, 2019 [...] shows mi (more content not included)... Normal [facility] EYLEA (AFLIBERCEPT) 2MG INTR AVITREAL INJECTION OS (LEFT EYE)on 04-10-2024 [facility] OCT MACULA CIRRUS OU (BOTH E YES)on 04-10-2024 [facility] Radiology Study observation (narrative) [facility] 03-28-2024 ANGUS Telephone (OPTMAN) IVONNE MAYA ([id number]) 1950 F Date Time Provider Department 03/28/24 KYRA YOUSSEF II During your visit today, we recorded the following information about you: Daphney King 03/28/2024 11:27 AM Signed Ivonne phoned stating she forgot to tell you that she had a cerebellum stroke approximately 3-4 weeks ago. Allergies As of Date: 03/28/2024 Noted Allergy Reaction SULFA (SULFONAMIDE ANTIBIOTICS) 01/09/2005 Date Reviewed: 03/19/2024 Reviewed by: Derek Louis COA - Fully Assessed Reason for Visit: [...] Status:Closed by DAPHNEY KING on 03/31/24 Normal [facility] Blood urea nitrogen (BUN)/cr eatinine ratioOrdered By: Renetta Mary on 03-12-2024 Urea nitrogen/Creatinine [Mass ratio] 28.2 mg/mg High 10-20 [facility] CBC-Complete Blood Cnt No Di ffon 03-12-2024 Erythrocyte distribution width (RBC) [Ratio] 13.6 % Normal 11.6-14.6 [facility] Comment on above: Performed By: #### L 500.3600, L100.0500 #### [facility] Laboratory [address] [place], [address] Hematocrit (Bld) [Volume fraction] 41.1 % Normal 37-47 [facility] Comment on above: Performed By: #### L 500.3600, L100.0500 #### [facility] [address] [place], [address] Hemoglobin (Bld) [Mass/Vol] 13.2 g/dL Normal 12.0-15. 0 [facility] Comment on above: Performed By: #### L 500.3600, L100.0500 #### [facility] [address] [place], [address] MCH (RBC) [Entitic mass] 32.0 pg Normal 27.0-32.0 [facility] Comment on above: Performed By: #### L 500.3600, L100.0500 #### [facility] [address] [place], [address] MCHC (RBC) [Mass/Vol] 32.1 g/dL Normal 32-[address] [facility] Comment on above: Performed By: #### L 500.3600, L100.0500 #### [facility] [address] [place], [address] MCV (RBC) [Entitic vol] 99.8 fL High 81-99 [facility] Comment on above: Performed By: #### L 500.3600, L100.0500 #### [facility] [address] [place], [address] Platelet mean volume (Bld) [Entitic vol] 10.0 fL Normal 6.2-12.0 [facility] Comment on above: Performed By: #### L 500.3600, L100.0500 #### [facility] [address] [place], [address] Platelets (Bld) [#/Vol] 260 10*3/uL Normal 150-450 [facility] Comment on above: Performed By: #### L 500.3600, L100.0500 #### [facility] [address] [place], [address] RBC (Bld) [#/Vol] 4.12 10*6/uL Low 4.2-5.4 [facility] Comment on above: Performed By: #### L 500.3600, L100.0500 #### [facility] [address] [place], [address] RDW SD 50.1 fl High 35.1-43.9 [facility] Comment on above: Performed By: #### L 500.3600, L100.0500 #### [facility] [address] [place], [address] WBC (Bld) [#/Vol] 4.6 10*3/uL Normal 4.4-11.0 [facility] Comment on above: Performed By: #### L 500.3600, L100.0500 #### [facility] [address] [place], [address] Carbon dioxide measurementOr dered By: Renetta Mary on 03-12-2024 CO2 [Moles/Vol] 27.0 mmol/L 21.0-32.0 [facility] Chloride measurementOrdered By: Renetta Mary on 03-12-2024 Chloride [Moles/Vol] 106 mmol/L 98-107 [facility] Erythrocyte distribution wid th (RBC) [Ratio]Ordered By: Renetta Mary on 03-12-2024 Erythrocyte distribution width (RBC) [Entitic vol] 50.1 fL High 35.1-43.9 [facility] Erythrocyte distribution wid th ratioOrdered By: Renetta Mary on 03-12-2024 Erythrocyte distribution width (RBC) [Ratio] 13.6 % 11.6-14.6 [facility] Erythrocyte distribution wid th standard deviationOrdered By: Renetta Mary on 03-12-2024 Erythrocyte distribution width (RBC) [Ratio] 50.1 fl High 35.1-43.9 [facility] Estimated glomerular filtrat ion rate (GFR) AmericanOrdered By: Renetta Mary on 03-12-2024 Estimated GFR (MDRD) Amer 62 mL/min >60 [facility] Comment on above: GFR Calc Glomerular filtration rate ( GFR) estimationOrdered By: Renetta Mary on 03-12-2024 Estimated GFR (MDRD) Non-Af Amer 52 mL/min Low >60 [facility] Comment on above: Non- GFR Calc GFR/1.73 sq M.predicted among non-blacks MDRD (S/P/Bld) [Vol rate/Area] 52 mL/min/{1.73_m2} Low >60 [facility] Comment on above: Non- GFR Calc Glucose measurementOrdered B y: Renetta Mary on 03-12-2024 Glucose [Mass/Vol] 91 mg/dL 74-106 [facility] Hematocrit Auto (Bld) [Volum e fraction]Ordered By: Renetta Mary on 03-12-2024 Hematocrit (Bld) [Volume fraction] 41.1 % 37-47 [facility] Hemoglobin measurementOrdere d By: Renetta Mary on 03-12-2024 Hemoglobin (Bld) [Mass/Vol] 13.2 g/dL 12.0-15. 0 [facility] MCV (mean corpuscular volume ) determinationOrdered By: Renetta Mary on 03-12-2024 MCV (RBC) [Entitic vol] 99.8 fL High 81-99 [facility] Mean corpuscular hemoglobin (MCH) determinationOrdered By: Renetta Mary on 03-12-2024 MCH (RBC) [Entitic mass] 32.0 pg 27.0-32.0 [facility] Mean corpuscular hemoglobin concentration (MCHC) determinationOrdered By: Renetta Mary on 03-12-2024 MCHC (RBC) [Mass/Vol] 32.1 g/dL 32-[address] [facility] Mean platelet volume determi nationOrdered By: Renetta Mary on 03-12-2024 Platelet mean volume (Bld) [Entitic vol] 10.0 fL 6.2-12.0 [facility] Phosphorus measurementOrdere d By: Renetta Mary on 03-12-2024 Phosphorus Level 2.9 mg/dL 2.5-4.9 [facility] Platelet countOrdered By: Allyson Mary on 03-12-2024 Platelets (Bld) [#/Vol] 260 10*3/uL 150-450 [facility] Potassium measurementOrdered By: Renetta Mary on 03-12-2024 Potassium [Moles/Vol] 4.6 mmol/L 3.5-5.[address] [facility] RBC Auto (Bld) [#/Vol]Ordere d By: Renetta Mary on 03-12-2024 RBC (Bld) [#/Vol] 4.12 10*6/uL Low 4.2-5.4 [facility] Renal Profileon 03-12-2024 Albumin [Mass/Vol] 3.2 g/dL Normal 3.2-5.0 [facility] Comment on above: Performed By: #### L 500.3600, L100.0500 #### [facility] [address] [place], [address] BUN/CRE 28.2 RATIO High 10-20 [facility] Comment on above: Performed By: #### L 500.3600, L100.0500 #### [facility] [address] [place], [address] CA,Total 9.0 mg/dL Normal 8.5-10.1 [facility] Comment on above: Performed By: #### L 500.3600, L100.0500 #### [facility] [address] [place], [address] Chloride [Moles/Vol] 106 mmol/L Normal 98-107 [facility] Comment on above: Performed By: #### L 500.3600, L100.0500 #### [facility] [address] [place], [address] CO2 [Moles/Vol] 27.0 mmol/L Normal 21.0-32.0 [facility] Comment on above: Performed By: #### L 500.3600, L100.0500 #### [facility] [address] [place], [address] Creatinine [Mass/Vol] 1.10 mg/dL High 0.55-1.[address] [facility] Comment on above: Result Comment: The validity of the calculated GFR GFRAA in patients over 70 years has not been determined. Clinical correlation is essential. Performed By: #### L 500.3600, L100.0500 #### [facility] [address] [place], [address] EST GFR - AA 62 mL/min Normal >60 [facility] Comment on above: Result Comment: Afri can Ukrainian GFR Calc Performed By: #### L 500.3600, L100.0500 #### [facility] [address] [place], [address] GFR/1.73 sq M.predicted among non-blacks MDRD (S/P/Bld) [Vol rate/Area] 52 mL/min/{1.73_m2} Low >60 [facility] Comment on above: Result Comment: Non- GFR Calc Performed By: #### L 500.3600, L100.0500 #### [facility] [address] [place], [address] Glucose [Mass/Vol] 91 mg/dL Normal 74-106 [facility] Comment on above: Performed By: #### L 500.3600, L100.0500 #### [facility] [address] [place], [address] Phosphate [Mass/Vol] 2.9 mg/dL Normal 2.5-4.9 [facility] Comment on above: Performed By: #### L 500.3600, L100.0500 #### [facility] [address] [place], [address] Potassium [Moles/Vol] 4.6 mmol/L Normal 3.5-5.[address] [facility] Comment on above: Performed By: #### L 500.3600, L100.0500 #### [facility] [address] [place], [address] Sodium [Moles/Vol] 139 mmol/L Normal 136-145 [facility] Comment on above: Performed By: #### L 500.3600, L100.0500 #### [facility] [address] [place], [address] Urea nitrogen [Mass/Vol] 31 mg/dL High 7-18 [facility] Comment on above: Performed By: #### L 500.3600, L100.0500 #### [facility] [address] [place], [address] Serum or plasma albumin isaías urement (mass/volume)Ordered By: Renetta Mary on 03-12-2024 Albumin [Mass/Vol] 3.2 g/dL 3.2-5.0 [facility] Serum or plasma calcium isaías urement (mass/volume)Ordered By: Renetta Mary on 03-12-2024 Calcium [Mass/Vol] 9.0 mg/dL 8.5-10.1 [facility] Serum or plasma creatinine m easurement (mass/volume)Ordered By: Renetta Mary on 03-12-2024 Creatinine [Mass/Vol] 1.10 mg/dL High 0.55-1.[address] [facility] Comment on above: The validity of the calculated GFR & GFRAA in patients over 70 years has not been determined. Clinical correlation is essential. Serum or plasma urea nitroge n measurement (mass/volume)Ordered By: Renetta Mary on 03-12-2024 Urea nitrogen [Mass/Vol] 31 mg/dL High 7-18 [facility] Sodium levelOrdered By: Freddie Mary on 03-12-2024 Sodium [Moles/Vol] 139 mmol/L 136-145 [facility] White blood cell (WBC) count Ordered By: Renetta Mary on 03-12-2024 WBC (Bld) [#/Vol] 4.6 10*3/uL 4.4-11.0 [facility] Brain/Head without Contrasto n 02-28-2024 Brain/Head without Contrast [facility] Imaging Services [address] [place], [place] [address] Brain/Head without Contrast MR#: [id number] Acct: [id number] Name: IVONNE MAYA Rep #: [id number] : 1950 F 73 From: Dimitris Celis MD PCP: Dr. Maritza Ren MD Status: [facility] CLI Study: Brain/Head without Contrast Date of Exam: 02/03 08/26 Exam# [id number] Ordering Dr: Maritza Ren MD [id number] STUDY: CT BRAIN WITHOUT CONTRAST REASON FOR [...] at 17:46 EST , CC: Dr. Maritza Ren MD Rate Engineer: Signed Normal [facility] EYLEA (AFLIBERCEPT) 2MG INTR AVITREAL INJECTION OS (LEFT EYE)on 02-21-2024 [facility] OCT MACULA CIRRUS OU (BOTH E YES)on 02-21-2024 [facility] Radiology Study observation (narrative) [facility] Stress Reporton 02-19-2024 Stress Report [facility] Cardiovascular Services [address] [place] [address] MR#: [id number] Acct: [id number] Name: IVONNE MAYA Rep #: [id number] : 1950 73 From: Que Mccrary MD Primary Care: Dr. Maritza Ren MD Status: REG CLI Referring Dr: Melodie [...] Date Que Mccrary MD CC: Dr. Maritza Ren MD; LEEANNA Reyes Date Dictated: 02/19/241751 Date Transcribed: 02/19/241751 Rate Engineer: [place] Signed Normal [facility] Cardiology Visit Reporton Cardiology Visit Report [facility] [address] [place] [address]. 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 Normal [facility] EYLEA (AFLIBERCEPT) 2MG INTR AVITREAL INJECTION OS (LEFT EYE)on 01-03-2024 [facility] OCT MACULA CIRRUS OU (BOTH E YES)on 01-03-2024 [facility] Radiology Study observation (narrative) [facility] EYLEA (AFLIBERCEPT) 2MG INTR AVITREAL INJECTION OS (LEFT EYE)on 11-08-2023 [facility] OCT MACULA CIRRUS OU (BOTH E YES)on 11-08-2023 [facility] Radiology Study observation (narrative) [facility] EYLEA (AFLIBERCEPT) 2MG INTR AVITREAL INJECTION OS (LEFT EYE)on 09-20-2023 [facility] OCT MACULA CIRRUS OU (BOTH E YES)on 09-20-2023 [facility] Radiology Study observation (narrative) [facility] AVASTIN (BEVACIZUMAB) 1.25MG INTRAVITREAL INJECTION OS (LEFT EYE)on 08-09-2023 [facility] OCT MACULA CIRRUS OU (BOTH E YES)on 08-09-2023 [facility] Radiology Study observation (narrative) [facility] AVASTIN (BEVACIZUMAB) 1.25MG INTRAVITREAL INJECTION OS (LEFT EYE)on 07-05-2023 [facility] OCT MACULA CIRRUS OU (BOTH E YES)on 07-05-2023 [facility] Radiology Study observation (narrative) [facility] Basophil percentageOrdered B y: Renetta Mary on 06-21-2023 Basophil percentage 3.2 mg/dL 2.5-4.9 [facility] Chloride [Moles/Vol] 108 mmol/L 98-107 [facility] Glucose [Mass/Vol] 94 mg/dL 74-106 [facility] Potassium [Moles/Vol] 4.0 mmol/L 3.5-5.[address] [facility] Sodium [Moles/Vol] 138 mmol/L 136-145 [facility] Laboratory - Chemistry and C hemistry - challengeOrdered By: Renetta Mary on 06-21-2023 CO2 [Moles/Vol] 26.0 mmol/L 21.0-32.0 [facility] Urea nitrogen/Creatinine [Mass ratio] 29.9 mg/mg 10-20 [facility] No Panel InformationOrdered By: Renetta Mary on 06-21-2023 Estimated GFR (MDRD) Amer 58 mL/min >60 [facility] Comment on above: GFR Calc Estimated GFR (MDRD) Non-Af Amer 48 mL/min >60 [facility] Comment on above: Non- GFR Calc Urine Microalbumin/Creatinine Ratio 24.0 mg/g CRE <30 [facility] Serum or plasma calcium isaías urement (mass/volume)Ordered By: Renetta Mary on 06-21-2023 Calcium [Mass/Vol] 8.6 mg/dL 8.5-10.1 [facility] Serum or plasma creatinine m easurement (mass/volume)Ordered By: Renetta Mary on 06-21-2023 Creatinine [Mass/Vol] 1.17 mg/dL 0.55-1.[address] [facility] Comment on above: The validity of the calculated GFR & GFRAA in patients over 70 years has not been determined. Clinical correlation is essential. Serum or plasma urea nitroge n measurement (mass/volume)Ordered By: Renetta Mary on 06-21-2023 Urea nitrogen [Mass/Vol] 35 mg/dL 09-19 [facility] Thin prep Papanicolaou smear with manual screeningOrdered By: Renetta Mary on 06-21-2023 Thin prep Papanicolaou smear with manual screening 3.6 g/dL 3.2-5.0 [facility] Thin prep Papanicolaou smear with manual screening 11.1 mg/L NO RANGE EST. [facility] Urine creatinine measurement (mass/volume)Ordered By: Renetta Mary on 06-21-2023 Creatinine (U) [Mass/Vol] 46.30 mg/dL NO RANGE EST. [facility] Basophil percentageOrdered B y: Renetta Mary on 05-02-2023 Basophil percentage 3.7 mg/dL 2.5-4.9 [facility] Chloride [Moles/Vol] 105 mmol/L 98-107 [facility] Glucose [Mass/Vol] 74 mg/dL 74-106 [facility] Potassium [Moles/Vol] 4.5 mmol/L 3.5-5.[address] [facility] Sodium [Moles/Vol] 139 mmol/L 136-145 [facility] Laboratory - Chemistry and C hemistry - challengeOrdered By: Renetta Mary on 05-02-2023 CO2 [Moles/Vol] 25.0 mmol/L 21.0-32.0 [facility] Urea nitrogen/Creatinine [Mass ratio] 26.3 mg/mg 10-20 [facility] No Panel InformationOrdered By: Renetta Mary on 05-02-2023 Estimated GFR (MDRD) Amer 50 mL/min >60 [facility] Comment on above: GFR Calc Estimated GFR (MDRD) Non-Af Amer 42 mL/min >60 [facility] Comment on above: Non- GFR Calc Serum or plasma calcium isaías urement (mass/volume)Ordered By: Renetta Mary on 05-02-2023 Calcium [Mass/Vol] 9.0 mg/dL 8.5-10.1 [facility] Serum or plasma creatinine m easurement (mass/volume)Ordered By: Renetta Mary on 05-02-2023 Creatinine [Mass/Vol] 1.33 mg/dL 0.55-1.[address] [facility] Comment on above: The validity of the calculated GFR & GFRAA in patients over 70 years has not been determined. Clinical correlation is essential. Serum or plasma urea nitroge n measurement (mass/volume)Ordered By: Renetta Mary on 05-02-2023 Urea nitrogen [Mass/Vol] 35 mg/dL 7-18 [facility] Thin prep Papanicolaou smear with manual screeningOrdered By: Renetta Mary on 05-02-2023 Thin prep Papanicolaou smear with manual screening 3.2 g/dL 3.2-5.0 [facility] Basophil percentageOrdered B y: Renetta Mary on 03-07-2023 Basophil percentage 3.9 mg/dL 2.5-4.9 [facility] Chloride [Moles/Vol] 107 mmol/L 98-107 [facility] Glucose [Mass/Vol] 95 mg/dL 74-106 [facility] Potassium [Moles/Vol] 3.9 mmol/L 3.5-5.[address] [facility] Sodium [Moles/Vol] 138 mmol/L 136-145 [facility] Laboratory - Chemistry and C hemistry - challengeOrdered By: Renetta Mary on 03-07-2023 CO2 [Moles/Vol] 26.0 mmol/L 21.0-32.0 [facility] Urea nitrogen/Creatinine [Mass ratio] 25.8 mg/mg 10-20 [facility] No Panel InformationOrdered By: Renetta Mary on 03-07-2023 Estimated GFR (MDRD) Amer 51 mL/min >60 [facility] Comment on above: GFR Calc Estimated GFR (MDRD) Non-Af Amer 42 mL/min >60 [facility] Comment on above: Non- GFR Calc Serum or plasma albumin isaías urement (mass/volume)Ordered By: Renetta Mary on 03-07-2023 Albumin [Mass/Vol] 3.5 g/dL 3.2-5.0 [facility] Serum or plasma calcium isaías urement (mass/volume)Ordered By: Renetta Mary on 03-07-2023 Calcium [Mass/Vol] 9.3 mg/dL 8.5-10.1 [facility] Serum or plasma creatinine m easurement (mass/volume)Ordered By: Renetta Mary on 03-07-2023 Creatinine [Mass/Vol] 1.32 mg/dL 0.55-1.[address] [facility] Comment on above: The validity of the calculated GFR & GFRAA in patients over 70 years has not been determined. Clinical correlation is essential. Serum or plasma urea nitroge n measurement (mass/volume)Ordered By: Renetta Mary on 03-07-2023 Urea nitrogen [Mass/Vol] 34 mg/dL 7-18 [facility] Absolute lymphocyte countOrd ered By: Maritza Ren on 02-13-2023 Lymphocytes Auto (Unsp spec) [#/Vol] 2.14 10*3/uL 0.83-4.51 [facility] Basophil percentageOrdered B y: Maritza Ren on 02-13-2023 Basophils/100 WBC (Bld) 1.2 % 0-1 [facility] Bilirubin [Mass/Vol] 0.50 mg/dL 0.20-1.00 [facility] Comment on above: For patients on eltr ombopag therapy, use of Dimension [place] TBIL is not recommended. Chloride [Moles/Vol] 102 mmol/L 98-107 [facility] Eosinophils/100 WBC (Bld) 3.6 % 0-5 [facility] Glucose [Mass/Vol] 81 mg/dL 74-106 [facility] Neutrophils (Bld) [#/Vol] 3.7 10*3/uL 2.0-7.7 [facility] Neutrophils/100 WBC (Bld) 54.2 % 47-70 [facility] Potassium [Moles/Vol] 3.6 mmol/L 3.5-5.[address] [facility] Protein [Mass/Vol] 6.5 g/dL 6.4-8.2 [facility] Sodium [Moles/Vol] 137 mmol/L 136-145 [facility] WBC (Bld) [#/Vol] 6.8 10*3/uL 4.4-11.0 [facility] Blood erythrocytes count (nu mber/volume)Ordered By: Maritza Ren on 02-13-2023 RBC (Bld) [#/Vol] 3.84 10*6/uL 4.2-5.4 [facility] Blood hemoglobin measurement (mass/volume)Ordered By: Maritza Ren on 02-13-2023 Hemoglobin (Bld) [Mass/Vol] 12.1 g/dL 12.0-15. 0 [facility] Blood lymphocytes/100 leukoc ytesOrdered By: Maritza Ren on 02-13-2023 Lymphocytes/100 WBC (Bld) 31.7 % 19-41 [facility] Blood monocytes/100 leukocyt esOrdered By: Maritza Ren on 02-13-2023 Monocytes/100 WBC (Bld) 9.2 % 0-10 [facility] Blood platelet mean volumeOr dered By: Maritza Ren on 02-13-2023 Platelet mean volume (Bld) [Entitic vol] 10.5 fL 6.2-12.0 [facility] Determination of erythrocyte mean corpuscular volume (MCV)Ordered By: Maritza Ren on 02-13-2023 MCV (RBC) [Entitic vol] 98.7 fL 81-99 [facility] Hematocrit Auto (Bld) [Volum e fraction]Ordered By: Maritza Ren on 02-13-2023 Hematocrit (Bld) [Volume fraction] 37.9 % 37-47 [facility] Laboratory - Chemistry and C hemistry - challengeOrdered By: Maritza Ren on 02-13-2023 ALP [Catalytic activity/Vol] 60 U/L 45-117 [facility] ALT [Catalytic activity/Vol] 22 U/L 13-56 [facility] CO2 [Moles/Vol] 27.0 mmol/L 21.0-32.0 [facility] Globulin (S) [Mass/Vol] 3.0 g/dL 2.2-4.2 [facility] Urea nitrogen/Creatinine [Mass ratio] 20.0 mg/mg 10-20 [facility] Laboratory - Hematology and Cell countsOrdered By: Maritza Ren on 02-13-2023 Erythrocyte distribution width (RBC) [Entitic vol] 44.8 fL 35.1-43.9 [facility] Erythrocyte distribution width (RBC) [Ratio] 12.3 % 11.6-14.6 [facility] Immature granulocytes/100 WBC (Bld) 0.100 % 0.0-0.9 [facility] Comment on above: IG% - Immature Granu locytes (promyelocytes, myelocytes and metamyelocytes) > 1% indicates that a LEFT SHIFT is Present. MCH (RBC) [Entitic mass] 31.5 pg 27.0-32.0 [facility] Nucleated RBC/100 WBC (Bld) [Ratio] 0 % 0-5 [facility] MCHC Auto (RBC) [Mass/Vol]Or dered By: Maritza Ren on 02-13-2023 MCHC (RBC) [Mass/Vol] 31.9 g/dL 32-[address] [facility] No Panel InformationOrdered By: Maritza Ren on 02-13-2023 Estimated GFR (MDRD) Amer 49 mL/min >60 [facility] Comment on above: GFR Calc Estimated GFR (MDRD) Non-Af Amer 41 mL/min >60 [facility] Comment on above: Non- GFR Calc Platelets bldOrdered By: Malou Ren on 02-13-2023 Platelets (Bld) [#/Vol] 289 10*3/uL 150-450 [facility] Serum or plasma albumin isaías urement (mass/volume)Ordered By: Maritza Ren on 02-13-2023 Albumin [Mass/Vol] 3.5 g/dL 3.2-5.0 [facility] Serum or plasma albumin/glob ulin mass ratioOrdered By: Maritza Ren on 02-13-2023 Albumin/Globulin [Mass ratio] 1.2 {ratio} 0.9-2.4 [facility] Serum or plasma calcium isaías urement (mass/volume)Ordered By: Maritza Ren on 02-13-2023 Calcium [Mass/Vol] 8.3 mg/dL 8.5-10.1 [facility] Serum or plasma creatinine m easurement (mass/volume)[facility] Creatinine [Mass/Vol] 1.35 mg/dL 0.55-1.[address] [facility] Comment on above: The validity of the calculated GFR & GFRAA in patients over 70 years has not been determined. Clinical correlation is essential. Serum or plasma urea nitroge n measurement (mass/volume)Ordered By: Maritza Ren on 02-13-2023 Urea nitrogen [Mass/Vol] 27 mg/dL 7-18 [facility] Thin prep Papanicolaou smear with manual screeningOrdered By: [facility] on 02-13-2023 Thin prep Papanicolaou smear with manual screening 25 U/L 15-37 [facility] Thin prep Papanicolaou smear with manual screening 8 5-15 [facility] Absolute lymphocyte countOrd ered By: Malachi Lowry on 12-20-2022 Lymphocytes Auto (Unsp spec) [#/Vol] 1.72 10*3/uL 0.83-4.51 [facility] Basophil percentageOrdered B y: Malachi Lowry on 12-20-2022 Basophil percentage 3.6 mg/dL 2.5-4.9 [facility] Basophils/100 WBC (Bld) 1.6 % 0-1 [facility] Bilirubin [Mass/Vol] 0.40 mg/dL 0.20-1.00 [facility] Comment on above: For patients on eltr ombopag therapy, use of Dimension [place] TBIL is not recommended. Chloride [Moles/Vol] 106 mmol/L 98-107 [facility] Eosinophils/100 WBC (Bld) 3.6 % 0-5 [facility] Glucose [Mass/Vol] 96 mg/dL 74-106 [facility] Neutrophils (Bld) [#/Vol] 2.9 10*3/uL 2.0-7.7 [facility] Neutrophils/100 WBC (Bld) 52.2 % 47-70 [facility] Potassium [Moles/Vol] 3.9 mmol/L 3.5-5.[address] [facility] Protein [Mass/Vol] 6.9 g/dL 6.4-8.2 [facility] Sodium [Moles/Vol] 138 mmol/L 136-145 [facility] WBC (Bld) [#/Vol] 5.6 10*3/uL 4.4-11.0 [facility] Blood erythrocytes count (nu mber/volume)Ordered By: Malachi Lowry on 12-20-2022 RBC (Bld) [#/Vol] 4.04 10*6/uL 4.2-5.4 [facility] Blood hemoglobin measurement (mass/volume)Ordered By: Malachi Lowry on 12-20-2022 Hemoglobin (Bld) [Mass/Vol] 12.7 g/dL 12.0-15. 0 [facility] Blood lymphocytes/100 leukoc ytesOrdered By: Malachi Lowry on 12-20-2022 Lymphocytes/100 WBC (Bld) 30.9 % 19-41 [facility] Blood monocytes/100 leukocyt esOrdered By: Malachi Lowry on 12-20-2022 Monocytes/100 WBC (Bld) 11.5 % 0-10 [facility] Blood platelet mean volumeOr dered By: Maalchi Lowry on 12-20-2022 Platelet mean volume (Bld) [Entitic vol] 10.2 fL 6.2-12.0 [facility] Determination of erythrocyte mean corpuscular volume (MCV)Ordered By: Malachi Lowry on 12-20-2022 MCV (RBC) [Entitic vol] 100.2 fL 81-99 [facility] Hematocrit Auto (Bld) [Volum e fraction]Ordered By: Malachi Lowry on 12-20-2022 Hematocrit (Bld) [Volume fraction] 40.5 % 37-47 [facility] INR in Blood by Coagulation assayOrdered By: Malachi Lowry on 12-20-2022 INR Coag (Bld) [Relative time] 1.0 {INR} [facility] Laboratory - Chemistry and C hemistry - challengeOrdered By: Malachi Lowry on 12-20-2022 ALP [Catalytic activity/Vol] 64 U/L 45-117 [facility] ALT [Catalytic activity/Vol] 30 U/L 13-56 [facility] CO2 [Moles/Vol] 27.0 mmol/L 21.0-32.0 [facility] Globulin (S) [Mass/Vol] 3.4 g/dL 2.2-4.2 [facility] Urea nitrogen/Creatinine [Mass ratio] 23.8 mg/mg 10-20 [facility] Laboratory - CoagulationOrde red By: Malachi Lowry on 12-20-2022 aPTT Coag (Bld) [Time] 27.0 s 24.1-36.2 [facility] PT Coag (PPP) [Time] 13.0 s 11.7-14.9 [facility] Laboratory - Hematology and Cell countsOrdered By: Malachi Lowry on 12-20-2022 Erythrocyte distribution width (RBC) [Entitic vol] 48.5 fL 35.1-43.9 [facility] Erythrocyte distribution width (RBC) [Ratio] 13.0 % 11.6-14.6 [facility] Immature granulocytes/100 WBC (Bld) 0.200 % 0.0-0.9 [facility] Comment on above: IG% - Immature Granu locytes (promyelocytes, myelocytes and metamyelocytes) > 1% indicates that a LEFT SHIFT is Present. MCH (RBC) [Entitic mass] 31.4 pg 27.0-32.0 [facility] Nucleated RBC/100 WBC (Bld) [Ratio] 0 % 0-5 [facility] MCHC Auto (RBC) [Mass/Vol]Or dered By: Malachi Lowry on 12-20-2022 MCHC (RBC) [Mass/Vol] 31.4 g/dL 32-[address] [facility] No Panel InformationOrdered By: Malachi Lowry on 12-20-2022 Estimated GFR (MDRD) Amer 52 mL/min >60 [facility] Comment on above: GFR Calc Estimated GFR (MDRD) Non-Af Amer 43 mL/min >60 [facility] Comment on above: Non- GFR Calc Platelets bldOrdered By: Baltazar Lowry on 12-20-2022 Platelets (Bld) [#/Vol] 286 10*3/uL 150-450 [facility] Serum or plasma albumin isaías urement (mass/volume)Ordered By: Malachi Lowry on 12-20-2022 Albumin [Mass/Vol] 3.5 g/dL 3.2-5.0 [facility] Serum or plasma albumin/glob ulin mass ratioOrdered By: Malachi Lowry on 12-20-2022 Albumin/Globulin [Mass ratio] 1.0 {ratio} 0.9-2.4 [facility] Serum or plasma calcium isaías urement (mass/volume)Ordered By: Malachi Lowry on 12-20-2022 Calcium [Mass/Vol] 8.8 mg/dL 8.5-10.1 [facility] Serum or plasma creatinine m easurement (mass/volume)Ordered By: Malachi Lowry on 12-20-2022 Creatinine [Mass/Vol] 1.30 mg/dL 0.55-1.[address] [facility] Comment on above: The validity of the calculated GFR & GFRAA in patients over 70 years has not been determined. Clinical correlation is essential. Serum or plasma urea nitroge n measurement (mass/volume)Ordered By: Malachi Lowry on 12-20-2022 Urea nitrogen [Mass/Vol] 31 mg/dL - [facility] Thin prep Papanicolaou smear with manual screeningOrdered By: Malachi Lowry on 12-20-2022 Thin prep Papanicolaou smear with manual screening 30 U/L 15-37 [facility] Thin prep Papanicolaou smear with manual screening 5 5-15 [facility] Absolute lymphocyte countOrd ered By: Gabby Brown on 12-13-2022 Lymphocytes Auto (Unsp spec) [#/Vol] 1.90 10*3/uL 0.83-4.51 [facility] Basophil percentageOrdered B y: Gabby Brown on 12-13-2022 Basophils/100 WBC (Bld) 1.7 % 0-1 [facility] Chloride [Moles/Vol] 106 mmol/L 98-107 [facility] Eosinophils/100 WBC (Bld) 2.7 % 0-5 [facility] Glucose [Mass/Vol] 88 mg/dL 74-106 [facility] Neutrophils (Bld) [#/Vol] 3.5 10*3/uL 2.0-7.7 [facility] Neutrophils/100 WBC (Bld) 54.7 % 47-70 [facility] Potassium [Moles/Vol] 4.0 mmol/L 3.5-5.[address] [facility] Sodium [Moles/Vol] 137 mmol/L 136-145 [facility] WBC (Bld) [#/Vol] 6.4 10*3/uL 4.4-11.0 [facility] Blood erythrocytes count (nu mber/volume)Ordered By: Gabby Brown on 12-13-2022 RBC (Bld) [#/Vol] 3.94 10*6/uL 4.2-5.4 [facility] Blood hemoglobin measurement (mass/volume)Ordered By: Gabby Brown on 12-13-2022 Hemoglobin (Bld) [Mass/Vol] 12.8 g/dL 12.0-15. 0 [facility] Blood lymphocytes/100 leukoc ytesOrdered By: Gabby Brown on 12-13-2022 Lymphocytes/100 WBC (Bld) 29.7 % 19-41 [facility] Blood monocytes/100 leukocyt esOrdered By: Gabby Brown on 12-13-2022 Monocytes/100 WBC (Bld) 11.0 % 0-10 [facility] Blood platelet mean volumeOr dered By: Gabby Brown on 12-13-2022 Platelet mean volume (Bld) [Entitic vol] 10.2 fL 6.2-12.0 [facility] Determination of erythrocyte mean corpuscular volume (MCV)Ordered By: Gabby Brown on 12-13-2022 MCV (RBC) [Entitic vol] 101.3 fL 81-99 [facility] Hematocrit Auto (Bld) [Volum e fraction]Ordered By: Gabby Brown on 12-13-2022 Hematocrit (Bld) [Volume fraction] 39.9 % 37-47 [facility] Laboratory - Chemistry and C hemistry - challengeOrdered By: Gabby Brown on 12-13-2022 CO2 [Moles/Vol] 26.0 mmol/L 21.0-32.0 [facility] Urea nitrogen/Creatinine [Mass ratio] 26.2 mg/mg 10-20 [facility] Laboratory - Hematology and Cell countsOrdered By: Gabby Brown on 12-13-2022 Erythrocyte distribution width (RBC) [Entitic vol] 49.3 fL 35.1-43.9 [facility] Erythrocyte distribution width (RBC) [Ratio] 13.0 % 11.6-14.6 [facility] Immature granulocytes/100 WBC (Bld) 0.200 % 0.0-0.9 [facility] Comment on above: IG% - Immature Granu locytes (promyelocytes, myelocytes and metamyelocytes) > 1% indicates that a LEFT SHIFT is Present. MCH (RBC) [Entitic mass] 32.5 pg 27.0-32.0 [facility] Nucleated RBC/100 WBC (Bld) [Ratio] 0 % 0-5 [facility] MCHC Auto (RBC) [Mass/Vol]Or dered By: Gabby Brown on 12-13-2022 MCHC (RBC) [Mass/Vol] 32.1 g/dL 32-[address] [facility] No Panel InformationOrdered By: Gabby Brown on 12-13-2022 Estimated GFR (MDRD) Amer 56 mL/min >60 [facility] Comment on above: GFR Calc Estimated GFR (MDRD) Non-Af Amer 46 mL/min >60 [facility] Comment on above: Non- GFR Calc Thyroid Stimulating Hormone (TSH) 1.80 uIU/mL 0.358-3.74 [facility] Vitamin D 25-Hydroxy 48.9 ng/mL [facility] Comment on above: Vitamin D 25(OH) Sta tus Range Deficiency <20 ng/mL (50nmol/L) Insufficiency 20 - 30 ng/mL (50 - 75 nmol/L) Sufficiency 30 - 100 ng/mL (75 - 250 nmol/L) Toxicity >100 ng/mL (>250 nmol/L) Platelets bldOrdered By: Alonzo Brown on 12-13-2022 Platelets (Bld) [#/Vol] 291 10*3/uL 150-450 [facility] Serum or plasma calcium isaías urement (mass/volume)Ordered By: Gabby Brown on 12-13-2022 Calcium [Mass/Vol] 9.2 mg/dL 8.5-10.1 [facility] Serum or plasma creatinine m easurement (mass/volume)Ordered By: Gabby Brown on 12-13-2022 Creatinine [Mass/Vol] 1.22 mg/dL 0.55-1.[address] [facility] Comment on above: The validity of the calculated GFR & GFRAA in patients over 70 years has not been determined. Clinical correlation is essential. Serum or plasma urea nitroge n measurement (mass/volume)Ordered By: Gabby Brown on 12-13-2022 Urea nitrogen [Mass/Vol] 32 mg/dL 09-19 [facility] Thin prep Papanicolaou smear with manual screeningOrdered By: Gabby Brown on 12-13-2022 Thin prep Papanicolaou smear with manual screening 5 5-15 [facility] Basophil percentageOrdered B y: Renetta Mary on 11-20-2022 Basophil percentage 3.2 mg/dL 2.5-4.9 [facility] Chloride [Moles/Vol] 101 mmol/L 98-107 [facility] Glucose [Mass/Vol] 87 mg/dL 74-106 [facility] Potassium [Moles/Vol] 3.8 mmol/L 3.5-5.[address] [facility] Sodium [Moles/Vol] 137 mmol/L 136-145 [facility] Laboratory - Chemistry and C hemistry - challengeOrdered By: Renetta Mary on 11-20-2022 CO2 [Moles/Vol] 30.0 mmol/L 21.0-32.0 [facility] Urea nitrogen/Creatinine [Mass ratio] 26.4 mg/mg 10- [facility] No Panel InformationOrdered By: Renetta Mary on 11-20-2022 Estimated GFR (MDRD) Amer 56 mL/min >60 [facility] Comment on above: GFR Calc Estimated GFR (MDRD) Non-Af Amer 46 mL/min >60 [facility] Comment on above: Non- GFR Calc Serum or plasma albumin isaías urement (mass/volume)Ordered By: Renetta Mary on 11-20-2022 Albumin [Mass/Vol] 3.3 g/dL 3.2-5.0 [facility] Serum or plasma calcium isaías urement (mass/volume)Ordered By: Renetta Mary on 11-20-2022 Calcium [Mass/Vol] 8.6 mg/dL 8.5-10.1 [facility] Serum or plasma creatinine m easurement (mass/volume)Ordered By: Renetta Mary on 11-20-2022 Creatinine [Mass/Vol] 1.21 mg/dL 0.55-1.[address] [facility] Comment on above: The validity of the calculated GFR & GFRAA in patients over 70 years has not been determined. Clinical correlation is essential. Serum or plasma urea nitroge n measurement (mass/volume)Ordered By: Renetta Mary on 11-20-2022 Urea nitrogen [Mass/Vol] 32 mg/dL 7-18 [facility] Basophil percentageOrdered B y: Renetta Mary on 10-11-2022 Basophil percentage 4.0 mg/dL 2.5-4.9 [facility] Chloride [Moles/Vol] 98 mmol/L 98-107 [facility] Glucose [Mass/Vol] 101 mg/dL 74-106 [facility] Comment on above: Fasting Glucose resu lt from 100 to 125 mg/dL suggests IMPAIRED HOMEOSTASIS per A.D.A. criteria. Potassium [Moles/Vol] 4.5 mmol/L 3.5-5.[address] [facility] Sodium [Moles/Vol] 131 mmol/L 136-145 [facility] WBC (Bld) [#/Vol] 7.9 10*3/uL 4.4-11.0 [facility] Blood erythrocytes count (nu mber/volume)Ordered By: Renetta Mary on 10-11-2022 RBC (Bld) [#/Vol] 3.86 10*6/uL 4.2-5.4 [facility] Blood hemoglobin measurement (mass/volume)Ordered By: Renetta Mary on 10-11-2022 Hemoglobin (Bld) [Mass/Vol] 12.5 g/dL 12.0-15. 0 [facility] Blood platelet mean volumeOr dered By: Renetta Mary on 10-11-2022 Platelet mean volume (Bld) [Entitic vol] 10.0 fL 6.2-12.0 [facility] Determination of erythrocyte mean corpuscular volume (MCV)Ordered By: Renetta Mary on 10-11-2022 MCV (RBC) [Entitic vol] 96.6 fL 81-99 [facility] Hematocrit Auto (Bld) [Volum e fraction]Ordered By: Renetta Mary on 10-11-2022 Hematocrit (Bld) [Volume fraction] 37.3 % 37-47 [facility] Iron measurement (mass/mass) Ordered By: Renetta aMry on 10-11-2022 Iron (Unsp spec) [Mass/Mass] 106 ug/dL 50-170 [facility] Laboratory - Chemistry and C hemistry - challengeOrdered By: Renetta Mary on 10-11-2022 CO2 [Moles/Vol] 25.0 mmol/L 21.0-32.0 [facility] Urea nitrogen/Creatinine [Mass ratio] 23.7 mg/mg 10-20 [facility] Laboratory - Hematology and Cell countsOrdered By: Renetta Mary on 10-11-2022 Erythrocyte distribution width (RBC) [Entitic vol] 42.5 fL 35.1-43.9 [facility] Erythrocyte distribution width (RBC) [Ratio] 12.2 % 11.6-14.6 [facility] MCH (RBC) [Entitic mass] 32.4 pg 27.0-32.0 [facility] MCHC Auto (RBC) [Mass/Vol]Or dered By: Renetta Mary on 10-11-2022 MCHC (RBC) [Mass/Vol] 33.5 g/dL 32-[address] [facility] No Panel InformationOrdered By: Renetta Mary on 10-11-2022 Estimated GFR (MDRD) Amer 48 mL/min >60 [facility] Comment on above: GFR Calc Estimated GFR (MDRD) Non-Af Amer 40 mL/min >60 [facility] Comment on above: Non- GFR Calc Total Iron Binding Capacity 380 ug/dL 250-450 [facility] Platelets bldOrdered By: Xenia Mary on 10-11-2022 Platelets (Bld) [#/Vol] 306 10*3/uL 150-450 [facility] Serum or plasma albumin isaías urement (mass/volume)Ordered By: Renetta Mary on 10-11-2022 Albumin [Mass/Vol] 3.6 g/dL 3.2-5.0 [facility] Serum or plasma calcium isaías urement (mass/volume)Ordered By: Renetta Mary on 10-11-2022 Calcium [Mass/Vol] 8.9 mg/dL 8.5-10.1 [facility] Serum or plasma creatinine m easurement (mass/volume)Ordered By: Renetta Mary on 10-11-2022 Creatinine [Mass/Vol] 1.39 mg/dL 0.55-1.[address] [facility] Comment on above: The validity of the calculated GFR & GFRAA in patients over 70 years has not been determined. Clinical correlation is essential. Serum or plasma ferritin davie surement (mass/volume)Ordered By: Renetta Mary on 10-11-2022 Ferritin [Mass/Vol] 27 ng/mL 8-252 [facility] Serum or plasma iron saturat ion measurement (mass fraction)Ordered By: Renetta Mary on 10-11-2022 Iron saturation [Mass fraction] 27.9 % 15.0-55.0 [facility] Serum or plasma urea nitroge n measurement (mass/volume)Ordered By: Renetta Mary on 10-11-2022 Urea nitrogen [Mass/Vol] 33 mg/dL 7-18 [facility] Blood hemoglobin measurement (mass/volume)Ordered By: Renetta Mary on 09-06-2022 Hemoglobin (Bld) [Mass/Vol] 11.5 g/dL 12.0-15. 0 [facility] Basophil percentageOrdered B y: Dr. Mary on 08-22-2022 Basophil percentage 4.0 mg/dL 2.5-4.9 [facility] Chloride [Moles/Vol] 103 mmol/L 98-107 [facility] Glucose [Mass/Vol] 95 mg/dL 74-106 [facility] Potassium [Moles/Vol] 4.1 mmol/L 3.5-5.[address] [facility] Sodium [Moles/Vol] 135 mmol/L 136-145 [facility] WBC (Bld) [#/Vol] 9.8 10*3/uL 4.4-11.0 [facility] Blood erythrocytes count (nu mber/volume)Ordered By: Dr. Mary on 08-22-2022 RBC (Bld) [#/Vol] 3.78 10*6/uL 4.2-5.4 [facility] Blood hemoglobin measurement (mass/volume)Ordered By: Dr. Mary on 08-22-2022 Hemoglobin (Bld) [Mass/Vol] 12.1 g/dL 12.0-15. 0 [facility] Blood platelet mean volumeOr dered By: Dr. Mary on 08-22-2022 Platelet mean volume (Bld) [Entitic vol] 10.1 fL 6.2-12.0 [facility] Determination of erythrocyte mean corpuscular volume (MCV)Ordered By: Dr. Mary on 08-22-2022 MCV (RBC) [Entitic vol] 99.5 fL 81-99 [facility] Hematocrit Auto (Bld) [Volum e fraction]Ordered By: Dr. Mary on 08-22-2022 Hematocrit (Bld) [Volume fraction] 37.6 % 37-47 [facility] Laboratory - Chemistry and C hemistry - challengeOrdered By: Dr. Mary on 08-22-2022 CO2 [Moles/Vol] 27.0 mmol/L 21.0-32.0 [facility] Urea nitrogen/Creatinine [Mass ratio] 30.7 mg/mg 10-20 [facility] Laboratory - Hematology and Cell countsOrdered By: Dr. Mary on 08-22-2022 Erythrocyte distribution width (RBC) [Entitic vol] 47.8 fL 35.1-43.9 [facility] Erythrocyte distribution width (RBC) [Ratio] 13.2 % 11.6-14.6 [facility] MCH (RBC) [Entitic mass] 32.0 pg 27.0-32.0 [facility] MCHC Auto (RBC) [Mass/Vol]Or dered By: Dr. Mary on 08-22-2022 MCHC (RBC) [Mass/Vol] 32.2 g/dL 32-[address] [facility] No Panel InformationOrdered By: Dr. Mary on 08-22-2022 Estimated GFR (MDRD) Amer 49 mL/min >60 [facility] Comment on above: GFR Calc Estimated GFR (MDRD) Non-Af Amer 40 mL/min >60 [facility] Comment on above: Non- GFR Calc Platelets bldOrdered By: Dr. Mary on 08-22-2022 Platelets (Bld) [#/Vol] 329 10*3/uL 150-450 [facility] Serum or plasma albumin isaías urement (mass/volume)Ordered By: Dr. Mary on 08-22-2022 Albumin [Mass/Vol] 3.4 g/dL 3.2-5.0 [facility] Serum or plasma calcium isaías urement (mass/volume)Ordered By: Dr. Mary on 08-22-2022 Calcium [Mass/Vol] 9.1 mg/dL 8.5-10.1 [facility] Serum or plasma creatinine m easurement (mass/volume)Ordered By: Dr. Mary on 08-22-2022 Creatinine [Mass/Vol] 1.37 mg/dL 0.55-1.[address] [facility] Comment on above: The validity of the calculated GFR & GFRAA in patients over 70 years has not been determined. Clinical correlation is essential. Serum or plasma urea nitroge n measurement (mass/volume)Ordered By: Dr. Mary on 08-22-2022 Urea nitrogen [Mass/Vol] 42 mg/dL 09-19 [facility] Basophil percentageOrdered B y: Dr. Mary on 08-07-2022 Basophil percentage 3.5 mg/dL 2.5-4.9 [facility] Chloride [Moles/Vol] 106 mmol/L 98-107 [facility] Glucose [Mass/Vol] 90 mg/dL 74-106 [facility] Potassium [Moles/Vol] 3.7 mmol/L 3.5-5.[address] [facility] Sodium [Moles/Vol] 134 mmol/L 136-145 [facility] Laboratory - Chemistry and C hemistry - challengeOrdered By: Dr. Mary on 08-07-2022 CO2 [Moles/Vol] 24.0 mmol/L 21.0-32.0 [facility] Urea nitrogen/Creatinine [Mass ratio] 25.9 mg/mg - [facility] No Panel InformationOrdered By: Dr. Mary on 08-07-2022 Estimated GFR (MDRD) Amer 46 mL/min >60 [facility] Comment on above: GFR Calc Estimated GFR (MDRD) Non-Af Amer 38 mL/min >60 [facility] Comment on above: Non- GFR Calc Serum or plasma albumin isaías urement (mass/volume)Ordered By: Dr. Mary on 08-07-2022 Albumin [Mass/Vol] 3.5 g/dL 3.2-5.0 [facility] Serum or plasma calcium isaías urement (mass/volume)Ordered By: Dr. Mary on 08-07-2022 Calcium [Mass/Vol] 8.9 mg/dL 8.5-10.1 [facility] Serum or plasma creatinine m easurement (mass/volume)Ordered By: Dr. Mary on 08-07-2022 Creatinine [Mass/Vol] 1.43 mg/dL 0.55-1.[address] [facility] Comment on above: The validity of the calculated GFR & GFRAA in patients over 70 years has not been determined. Clinical correlation is essential. Serum or plasma urea nitroge n measurement (mass/volume)Ordered By: Dr. Mary on 08-07-2022 Urea nitrogen [Mass/Vol] 37 mg/dL 7-18 [facility] Basophil percentageOrdered B y: Dr. Mary on 07-24-2022 Basophil percentage 3.4 mg/dL 2.5-4.9 [facility] Chloride [Moles/Vol] 105 mmol/L 98-107 [facility] Glucose [Mass/Vol] 93 mg/dL 74-106 [facility] Potassium [Moles/Vol] 3.8 mmol/L 3.5-5.[address] [facility] Sodium [Moles/Vol] 139 mmol/L 136-145 [facility] Laboratory - Chemistry and C hemistry - challengeOrdered By: Dr. Mary on 07-24-2022 CO2 [Moles/Vol] 24.0 mmol/L 21.0-32.0 [facility] Urea nitrogen/Creatinine [Mass ratio] 23.4 mg/mg 10-20 [facility] No Panel InformationOrdered By: Dr. Mary on 07-24-2022 Estimated GFR (MDRD) Amer 46 mL/min >60 [facility] Comment on above: GFR Calc Estimated GFR (MDRD) Non-Af Amer 38 mL/min >60 [facility] Comment on above: Non- GFR Calc Serum or plasma albumin isaías urement (mass/volume)Ordered By: Dr. Mary on 07-24-2022 Albumin [Mass/Vol] 3.5 g/dL 3.2-5.0 [facility] Serum or plasma calcium isaías urement (mass/volume)Ordered By: Dr. Mary on 07-24-2022 Calcium [Mass/Vol] 9.0 mg/dL 8.5-10.1 [facility] Serum or plasma creatinine m easurement (mass/volume)Ordered By: Dr. Mary on 07-24-2022 Creatinine [Mass/Vol] 1.45 mg/dL 0.55-1.[address] [facility] Comment on above: The validity of the calculated GFR & GFRAA in patients over 70 years has not been determined. Clinical correlation is essential. Serum or plasma urea nitroge n measurement (mass/volume)Ordered By: Dr. Mary on 07-24-2022 Urea nitrogen [Mass/Vol] 34 mg/dL 7-18 [facility] Basophil percentageOrdered B y: Dr. Mary on 07-11-2022 Basophil percentage 3.0 mg/dL 2.5-4.9 [facility] Chloride [Moles/Vol] 109 mmol/L 98-107 [facility] Glucose [Mass/Vol] 77 mg/dL 74-106 [facility] Potassium [Moles/Vol] 3.8 mmol/L 3.5-5.[address] [facility] Sodium [Moles/Vol] 139 mmol/L 136-145 [facility] Laboratory - Chemistry and C hemistry - challengeOrdered By: Dr. Mary on 07-11-2022 CO2 [Moles/Vol] 24.0 mmol/L 21.0-32.0 [facility] Urea nitrogen/Creatinine [Mass ratio] 24.5 mg/mg 10-20 [facility] No Panel InformationOrdered By: Dr. Mary on 07-11-2022 Estimated GFR (MDRD) Amer 44 mL/min >60 [facility] Comment on above: GFR Calc Estimated GFR (MDRD) Non-Af Amer 36 mL/min >60 [facility] Comment on above: Non- GFR Calc Serum or plasma albumin isaías urement (mass/volume)Ordered By: Dr. Mary on 07-11-2022 Albumin [Mass/Vol] 3.2 g/dL 3.2-5.0 [facility] Serum or plasma calcium isaías urement (mass/volume)Ordered By: Dr. Mary on 07-11-2022 Calcium [Mass/Vol] 8.8 mg/dL 8.5-10.1 [facility] Serum or plasma creatinine m easurement (mass/volume)Ordered By: Dr. Mary on 07-11-2022 Creatinine [Mass/Vol] 1.51 mg/dL 0.55-1.[address] [facility] Comment on above: The validity of the calculated GFR & GFRAA in patients over 70 years has not been determined. Clinical correlation is essential. Serum or plasma urea nitroge n measurement (mass/volume)Ordered By: Dr. Mary on 07-11-2022 Urea nitrogen [Mass/Vol] 37 mg/dL 7-18 [facility] Basophil percentageOrdered B y: Dr. Huerta on 06-26-2022 Chloride [Moles/Vol] 113 mmol/L 98-107 [facility] Glucose [Mass/Vol] 92 mg/dL 74-106 [facility] Potassium [Moles/Vol] 3.5 mmol/L 3.5-5.[address] [facility] Sodium [Moles/Vol] 138 mmol/L 136-145 [facility] WBC (Bld) [#/Vol] 7.0 10*3/uL 4.4-11.0 [facility] Blood erythrocytes count (nu mber/volume)Ordered By: Dr. Huerta on 06-26-2022 RBC (Bld) [#/Vol] 3.74 10*6/uL 4.2-5.4 [facility] Blood hemoglobin measurement (mass/volume)Ordered By: Dr. Huerta on 06-26-2022 Hemoglobin (Bld) [Mass/Vol] 11.8 g/dL 12.0-15. 0 [facility] Blood platelet mean volumeOr dered By: Dr. Huerta on 06-26-2022 Platelet mean volume (Bld) [Entitic vol] 10.2 fL 6.2-12.0 [facility] Determination of erythrocyte mean corpuscular volume (MCV)Ordered By: Dr. Huerta on 06-26-2022 MCV (RBC) [Entitic vol] 99.7 fL 81-99 [facility] Hematocrit Auto (Bld) [Volum e fraction]Ordered By: Dr. Huerta on 06-26-2022 Hematocrit (Bld) [Volume fraction] 37.3 % 37-47 [facility] Iron measurement (mass/mass) Ordered By: Dr. Huerta on 06-26-2022 Iron (Unsp spec) [Mass/Mass] 60 ug/dL 50-170 [facility] Laboratory - Chemistry and C hemistry - challengeOrdered By: Dr. Huerta on 06-26-2022 CO2 [Moles/Vol] 23.0 mmol/L 21.0-32.0 [facility] Urea nitrogen/Creatinine [Mass ratio] 20.8 mg/mg 10-20 [facility] Laboratory - Hematology and Cell countsOrdered By: Dr. Huerta on 06-26-2022 Erythrocyte distribution width (RBC) [Entitic vol] 47.8 fL 35.1-43.9 [facility] Erythrocyte distribution width (RBC) [Ratio] 13.1 % 11.6-14.6 [facility] MCH (RBC) [Entitic mass] 31.6 pg 27.0-32.0 [facility] MCHC Auto (RBC) [Mass/Vol]Or dered By: Dr. Huerta on 06-26-2022 MCHC (RBC) [Mass/Vol] 31.6 g/dL 32-[address] [facility] No Panel InformationOrdered By: Dr. Huerta on 06-26-2022 Estimated GFR (MDRD) Amer 41 mL/min >60 [facility] Comment on above: GFR Calc Estimated GFR (MDRD) Non-Af Amer 34 mL/min >60 [facility] Comment on above: Non- GFR Calc Total Iron Binding Capacity 285 ug/dL 250-450 [facility] Platelets bldOrdered By: Dr. Huerta on 06-26-2022 Platelets (Bld) [#/Vol] 327 10*3/uL 150-450 [facility] Serum or plasma calcium isaías urement (mass/volume)Ordered By: Dr. Huerta on 06-26-2022 Calcium [Mass/Vol] 8.8 mg/dL 8.5-10.1 [facility] Serum or plasma creatinine m easurement (mass/volume)Ordered By: Dr. Huerta on 06-26-2022 Creatinine [Mass/Vol] 1.59 mg/dL 0.55-1.[address] [facility] Comment on above: The validity of the calculated GFR & GFRAA in patients over 70 years has not been determined. Clinical correlation is essential. Serum or plasma ferritin davie surement (mass/volume)Ordered By: Dr. Huerta on 06-26-2022 Ferritin [Mass/Vol] 50 ng/mL 8-252 [facility] Serum or plasma iron saturat ion measurement (mass fraction)Ordered By: Dr. Huerta on 06-26-2022 Iron saturation [Mass fraction] 21.1 % 15.0-55.0 [facility] Serum or plasma urea nitroge n measurement (mass/volume)Ordered By: Dr. Huerta on 06-26-2022 Urea nitrogen [Mass/Vol] 33 mg/dL 7-18 [facility] Thin prep Papanicolaou smear with manual screeningOrdered By: Dr. Huerta on 06-26-2022 Thin prep Papanicolaou smear with manual screening 2 5-15 [facility] Basophil percentageOrdered B y: Dr. Mary on 06-15-2022 Basophil percentage 0 SEEN /hpf 0-5 [facility] Bilirubin Test strip Ql (U)O rdered By: Dr. Mary on 06-15-2022 Bilirubin Ql (U) Negative Negative [facility] Ketones Test strip Ql (U)Ord ered By: Dr. Mary on 06-15-2022 Ketones Ql (U) Negative Negative [facility] Mucus LM Ql (Urine sed)Order ed By: Dr. Mary on 06-15-2022 Mucus Ql (Urine sed) 0 SEEN /hpf [facility] Nitrite Test strip Ql (U)Ord ered By: Dr. Mary on 06-15-2022 Nitrite Ql (U) Negative Negative [facility] Protein Test strip Ql (U)Ord ered By: Dr. Mary on 06-15-2022 Protein Ql (U) 15 mg/dl Negative [facility] Squamous epithelial cells de tection in urine sediment by light microscopyOrdered By: Dr. Mary on 06-15-2022 Epithelial cells.squamous LM Ql (Urine sed) 0 SEEN /hpf 5-10 [facility] Urine blood detectionOrdered By: Dr. Mary on 06-15-2022 RBC Ql (U) Negative Negative [facility] RBC Ql (U) 0 SEEN /hpf 0-5 [facility] Urine clarityOrdered By: Dr. Mary on 06-15-2022 Clarity (U) Clear Clear [facility] Urine color determinationOrd ered By: Dr. Mary on 06-15-2022 Color (U) Yellow Yellow [facility] Urine glucose detectionOrder ed By: Dr. Mary on 06-15-2022 Glucose Ql (U) Normal mg/dl Normal [facility] Urine leukocyte esterase det ection by dipstickOrdered By: Dr. Mary on 06-15-2022 Leukocyte esterase Test strip Ql (U) Negative Negative [facility] Urine pHOrdered By: Dr. Mary on 06-15-2022 pH (U) 6.0 [pH] 5.0 - 8.0 [facility] Urine sediment bacteria coun t by microscopy (number/high power field)Ordered By: Dr. Mary on 06-15-2022 Bacteria LM.HPF (Urine sed) [#/Area] 0 /[HPF] None Seen [facility] Urine specific gravity measu rementOrdered By: Dr. Mary on 06-15-2022 Specific gravity (U) [Rel density] 1.010 1.002-1.03 0 [facility] Urobilinogen Auto test strip Ql (U)Ordered By: Dr. Mary on 06-15-2022 Urobilinogen Ql (U) Normal mg/dl Normal [facility] Basophil percentageOrdered B y: Dr. Mary on 06-12-2022 Basophil percentage 2.8 mg/dL 2.5-4.9 [facility] Chloride [Moles/Vol] 111 mmol/L 98-[address] [facility] Glucose [Mass/Vol] 87 mg/dL 74-106 [facility] Potassium [Moles/Vol] 3.9 mmol/L 3.5-5.[address] [facility] Sodium [Moles/Vol] 140 mmol/L 136-145 [facility] Laboratory - Chemistry and C hemistry - challengeOrdered By: Dr. Mary on 06-12-2022 CO2 [Moles/Vol] 22.0 mmol/L 21.0-32.0 [facility] Urea nitrogen/Creatinine [Mass ratio] 20.1 mg/mg 10-20 [facility] No Panel InformationOrdered By: Dr. Mary on 06-12-2022 Estimated GFR (MDRD) Amer 37 mL/min >60 [facility] Comment on above: GFR Calc Estimated GFR (MDRD) Non-Af Amer 31 mL/min >60 [facility] Comment on above: Non- GFR Calc Vitamin D 25-Hydroxy 39.6 ng/mL [facility] Comment on above: Vitamin D 25(OH) Sta tus Range Deficiency <20 ng/mL (50nmol/L) Insufficiency 20 - 30 ng/mL (50 - 75 nmol/L) Sufficiency 30 - 100 ng/mL (75 - 250 nmol/L) Toxicity >100 ng/mL (>250 nmol/L) Serum or plasma albumin isaías urement (mass/volume)Ordered By: Dr. Mary on 06-12-2022 Albumin [Mass/Vol] 3.5 g/dL 3.2-5.0 [facility] Serum or plasma calcium isaías urement (mass/volume)Ordered By: Dr. Mary on 06-12-2022 Calcium [Mass/Vol] 8.7 mg/dL 8.5-10.1 [facility] Serum or plasma creatinine m easurement (mass/volume)Ordered By: Dr. Mary on 06-12-2022 Creatinine [Mass/Vol] 1.74 mg/dL 0.55-1.[address] [facility] Comment on above: The validity of the calculated GFR & GFRAA in patients over 70 years has not been determined. Clinical correlation is essential. Serum or plasma urea nitroge n measurement (mass/volume)Ordered By: Dr. Mary on 06-12-2022 Urea nitrogen [Mass/Vol] 35 mg/dL 7-18 [facility] Basophil percentageOrdered B y: Dr. Mary on 05-30-2022 Basophil percentage 0 SEEN /hpf 0-5 [facility] Basophil percentage 2.9 mg/dL 2.5-4.9 [facility] Chloride [Moles/Vol] 109 mmol/L 98-107 [facility] Glucose [Mass/Vol] 90 mg/dL 74-106 [facility] Potassium [Moles/Vol] 3.2 mmol/L 3.5-5.[address] [facility] Sodium [Moles/Vol] 136 mmol/L 136-145 [facility] Bilirubin Test strip Ql (U)O rdered By: Dr. Mary on 05-30-2022 Bilirubin Ql (U) Negative Negative [facility] Ketones Test strip Ql (U)Ord ered By: Dr. Mary on 05-30-2022 Ketones Ql (U) Negative Negative [facility] Laboratory - Chemistry and C hemistry - challengeOrdered By: Dr. Mary on 05-30-2022 CO2 [Moles/Vol] 23.0 mmol/L 21.0-32.0 [facility] Urea nitrogen/Creatinine [Mass ratio] 24.6 mg/mg 10-20 [facility] Mucus LM Ql (Urine sed)Order ed By: Dr. Mary on 05-30-2022 Mucus Ql (Urine sed) 0 SEEN /hpf [facility] Nitrite Test strip Ql (U)Ord ered By: Dr. Mary on 05-30-2022 Nitrite Ql (U) Negative Negative [facility] No Panel InformationOrdered By: Dr. Mary on 05-30-2022 Estimated GFR (MDRD) Amer 37 mL/min >60 [facility] Comment on above: GFR Calc Estimated GFR (MDRD) Non-Af Amer 30 mL/min >60 [facility] Comment on above: Non- GFR Calc Protein Test strip Ql (U)Ord ered By: Dr. Mary on 05-30-2022 Protein Ql (U) 30 mg/dl Negative [facility] Serum or plasma albumin isaías urement (mass/volume)Ordered By: Dr. Mary on 05-30-2022 Albumin [Mass/Vol] 3.3 g/dL 3.2-5.0 [facility] Serum or plasma calcium isaías urement (mass/volume)Ordered By: Dr. Mary on 05-30-2022 Calcium [Mass/Vol] 8.5 mg/dL 8.5-10.1 [facility] Serum or plasma creatinine m easurement (mass/volume)Ordered By: Dr. Mary on 05-30-2022 Creatinine [Mass/Vol] 1.75 mg/dL 0.55-1.[address] [facility] Comment on above: The validity of the calculated GFR & GFRAA in patients over 70 years has not been determined. Clinical correlation is essential. Serum or plasma urea nitroge n measurement (mass/volume)Ordered By: Dr. Mary on 05-30-2022 Urea nitrogen [Mass/Vol] 43 mg/dL 7-18 [facility] Squamous epithelial cells de tection in urine sediment by light microscopyOrdered By: Dr. Mary on 05-30-2022 Epithelial cells.squamous LM Ql (Urine sed) 0 SEEN /hpf 5-10 [facility] Urine blood detectionOrdered By: Dr. Mary on 05-30-2022 RBC Ql (U) Negative Negative [facility] RBC Ql (U) 0 SEEN /hpf 0-5 [facility] Urine clarityOrdered By: Dr. Mary on 05-30-2022 Clarity (U) Clear Clear [facility] Urine color determinationOrd ered By: Dr. Mary on 05-30-2022 Color (U) Yellow Yellow [facility] Urine glucose detectionOrder ed By: Dr. Mary on 05-30-2022 Glucose Ql (U) Normal mg/dl Normal [facility] Urine leukocyte esterase det ection by dipstickOrdered By: Dr. Mary on 05-30-2022 Leukocyte esterase Test strip Ql (U) Negative Negative [facility] Urine pHOrdered By: Dr. Mary on 05-30-2022 pH (U) 6.5 [pH] 5.0 - 8.0 [facility] Urine sediment bacteria coun t by microscopy (number/high power field)Ordered By: Dr. Mary on 05-30-2022 Bacteria LM.HPF (Urine sed) [#/Area] 0 /[HPF] None Seen [facility] Urine specific gravity measu rementOrdered By: Dr. Mary on 05-30-2022 Specific gravity (U) [Rel density] 1.005 1.002-1.03 0 [facility] Urobilinogen Auto test strip Ql (U)Ordered By: Dr. Mary on 05-30-2022 Urobilinogen Ql (U) Normal mg/dl Normal [facility] Basophil percentageOrdered B y: Dr. Mary on 05-15-2022 Basophil percentage 2.7 mg/dL 2.5-4.9 [facility] Chloride [Moles/Vol] 109 mmol/L 98-107 [facility] Glucose [Mass/Vol] 95 mg/dL 74-106 [facility] Potassium [Moles/Vol] 3.9 mmol/L 3.5-5.[address] [facility] Sodium [Moles/Vol] 139 mmol/L 136-145 [facility] WBC (Bld) [#/Vol] 7.9 10*3/uL 4.4-11.0 [facility] Blood erythrocytes count (nu mber/volume)Ordered By: Dr. Mary on 05-15-2022 RBC (Bld) [#/Vol] 3.44 10*6/uL 4.2-5.4 [facility] Blood hemoglobin measurement (mass/volume)Ordered By: Dr. Mary on 05-15-2022 Hemoglobin (Bld) [Mass/Vol] 11.1 g/dL 12.0-15. 0 [facility] Blood platelet mean volumeOr dered By: Dr. Mary on 05-15-2022 Platelet mean volume (Bld) [Entitic vol] 10.5 fL 6.2-12.0 [facility] Determination of erythrocyte mean corpuscular volume (MCV)Ordered By: Dr. Mary on 05-15-2022 MCV (RBC) [Entitic vol] 100.3 fL 81-99 [facility] Hematocrit Auto (Bld) [Volum e fraction]Ordered By: Dr. Mary on 05-15-2022 Hematocrit (Bld) [Volume fraction] 34.5 % 37-47 [facility] Laboratory - Chemistry and C hemistry - challengeOrdered By: Dr. Mary on 05-15-2022 CO2 [Moles/Vol] 21.0 mmol/L 21.0-32.0 [facility] Urea nitrogen/Creatinine [Mass ratio] 16.2 mg/mg 10-20 [facility] Laboratory - Hematology and Cell countsOrdered By: Dr. Mary on 05-15-2022 Erythrocyte distribution width (RBC) [Entitic vol] 45.3 fL 35.1-43.9 [facility] Erythrocyte distribution width (RBC) [Ratio] 12.3 % 11.6-14.6 [facility] MCH (RBC) [Entitic mass] 32.3 pg 27.0-32.0 [facility] MCHC Auto (RBC) [Mass/Vol]Or dered By: Dr. Mary on 05-15-2022 MCHC (RBC) [Mass/Vol] 32.2 g/dL 32-[address] [facility] No Panel InformationOrdered By: Dr. Mary on 05-15-2022 Estimated GFR (MDRD) Amer 33 mL/min >60 [facility] Comment on above: GFR Calc Estimated GFR (MDRD) Non-Af Amer 27 mL/min >60 [facility] Comment on above: Non- GFR Calc Platelets bldOrdered By: Dr. Mary on 05-15-2022 Platelets (Bld) [#/Vol] 315 10*3/uL 150-450 [facility] Serum or plasma albumin isaías urement (mass/volume)Ordered By: Dr. Mary on 05-15-2022 Albumin [Mass/Vol] 3.2 g/dL 3.2-5.0 [facility] Serum or plasma calcium isaías urement (mass/volume)Ordered By: Dr. Mary on 05-15-2022 Calcium [Mass/Vol] 9.1 mg/dL 8.5-10.1 [facility] Serum or plasma creatinine m easurement (mass/volume)Ordered By: Dr. Mary on 05-15-2022 Creatinine [Mass/Vol] 1.91 mg/dL 0.55-1.[address] [facility] Comment on above: The validity of the calculated GFR & GFRAA in patients over 70 years has not been determined. Clinical correlation is essential. Serum or plasma urea nitroge n measurement (mass/volume)Ordered By: Dr. Mary on 05-15-2022 Urea nitrogen [Mass/Vol] 31 mg/dL 7-18 [facility] Absolute lymphocyte countOrd ered By: Dr. Mary on 04-25-2022 Lymphocytes Auto (Unsp spec) [#/Vol] 1.58 10*3/uL 0.83-4.51 [facility] Basophil percentageOrdered B y: Dr. Mary on 04-25-2022 Basophil percentage 3.0 mg/dL 2.5-4.9 [facility] Basophils/100 WBC (Bld) 1.0 % 0-1 [facility] Chloride [Moles/Vol] 107 mmol/L 98-107 [facility] Eosinophils/100 WBC (Bld) 2.6 % 0-5 [facility] Glucose [Mass/Vol] 88 mg/dL 74-106 [facility] Neutrophils (Bld) [#/Vol] 4.9 10*3/uL 2.0-7.7 [facility] Neutrophils/100 WBC (Bld) 64.4 % 47-70 [facility] Potassium [Moles/Vol] 3.7 mmol/L 3.5-5.[address] [facility] Sodium [Moles/Vol] 138 mmol/L 136-145 [facility] WBC (Bld) [#/Vol] 7.6 10*3/uL 4.4-11.0 [facility] Blood erythrocytes count (nu mber/volume)Ordered By: Dr. Mary on 04-25-2022 RBC (Bld) [#/Vol] 3.18 10*6/uL 4.2-5.4 [facility] Blood hemoglobin measurement (mass/volume)Ordered By: Dr. Mary on 04-25-2022 Hemoglobin (Bld) [Mass/Vol] 10.1 g/dL 12.0-15. 0 [facility] Blood lymphocytes/100 leukoc ytesOrdered By: Dr. Mary on 04-25-2022 Lymphocytes/100 WBC (Bld) 20.7 % 19-41 [facility] Blood monocytes/100 leukocyt esOrdered By: Dr. Mary on 04-25-2022 Monocytes/100 WBC (Bld) 10.9 % 0-10 [facility] Blood platelet mean volumeOr dered By: Dr. Mary on 04-25-2022 Platelet mean volume (Bld) [Entitic vol] 10.1 fL 6.2-12.0 [facility] Determination of erythrocyte mean corpuscular volume (MCV)Ordered By: Dr. Mary on 04-25-2022 MCV (RBC) [Entitic vol] 102.8 fL 81-99 [facility] Hematocrit Auto (Bld) [Volum e fraction]Ordered By: Dr. Mary on 04-25-2022 Hematocrit (Bld) [Volume fraction] 32.7 % 37-47 [facility] Iron measurement (mass/mass) Ordered By: Dr. Mary on 04-25-2022 Iron (Unsp spec) [Mass/Mass] 50 ug/dL 50-170 [facility] Laboratory - Chemistry and C hemistry - challengeOrdered By: Dr. Mary on 04-25-2022 CO2 [Moles/Vol] 24.0 mmol/L 21.0-32.0 [facility] [facility] Cobalamin (Vitamin B12) [Mass/Vol] 510 pg/mL 211-911 [facility] Urea nitrogen/Creatinine [Mass ratio] 18.5 mg/mg 10-20 [facility] Laboratory - Hematology and Cell countsOrdered By: Dr. Mary on 04-25-2022 Erythrocyte distribution width (RBC) [Entitic vol] 49.1 fL 35.1-43.9 [facility] Erythrocyte distribution width (RBC) [Ratio] 13.1 % 11.6-14.6 [facility] Immature granulocytes/100 WBC (Bld) 0.400 % 0.0-0.9 [facility] Comment on above: IG% - Immature Granu locytes (promyelocytes, myelocytes and metamyelocytes) > 1% indicates that a LEFT SHIFT is Present. MCH (RBC) [Entitic mass] 31.8 pg 27.0-32.0 [facility] Nucleated RBC/100 WBC (Bld) [Ratio] 0 % 0-5 [facility] MCHC Auto (RBC) [Mass/Vol]Or dered By: Dr. Mary on 04-25-2022 MCHC (RBC) [Mass/Vol] 30.9 g/dL 32-[address] [facility] No Panel InformationOrdered By: Dr. Mary on 04-25-2022 Estimated GFR (MDRD) Amer 42 mL/min >60 [facility] Comment on above: GFR Calc Estimated GFR (MDRD) Non-Af Amer 34 mL/min >60 [facility] Comment on above: Non- GFR Calc Platelets bldOrdered By: Dr. Mary on 04-25-2022 Platelets (Bld) [#/Vol] 324 10*3/uL 150-450 [facility] Serum or plasma albumin isaías urement (mass/volume)Ordered By: Dr. Mary on 04-25-2022 Albumin [Mass/Vol] 3.2 g/dL 3.2-5.0 [facility] Serum or plasma calcium isaías urement (mass/volume)Ordered By: Dr. Mary on 04-25-2022 Calcium [Mass/Vol] 8.8 mg/dL 8.5-10.1 [facility] Serum or plasma creatinine m easurement (mass/volume)Ordered By: Dr. Mary on 04-25-2022 Creatinine [Mass/Vol] 1.57 mg/dL 0.55-1.[address] [facility] Comment on above: The validity of the calculated GFR & GFRAA in patients over 70 years has not been determined. Clinical correlation is essential. Serum or plasma ferritin davie surement (mass/volume)Ordered By: Dr. Mary on 04-25-2022 Ferritin [Mass/Vol] 89 ng/mL 8-252 [facility] Serum or plasma urea nitroge n measurement (mass/volume)Ordered By: Dr. Mary on 04-25-2022 Urea nitrogen [Mass/Vol] 29 mg/dL 7-18 [facility] Basophil percentageOrdered B y: Dr. Mary on 04-10-2022 Basophil percentage 2.8 mg/dL 2.5-4.9 [facility] Chloride [Moles/Vol] 107 mmol/L 98-107 [facility] Glucose [Mass/Vol] 98 mg/dL 74-106 [facility] Potassium [Moles/Vol] 4.1 mmol/L 3.5-5.[address] [facility] Sodium [Moles/Vol] 138 mmol/L 136-145 [facility] Laboratory - Chemistry and C hemistry - challengeOrdered By: Dr. Mary on 04-10-2022 CO2 [Moles/Vol] 24.0 mmol/L 21.0-32.0 [facility] Urea nitrogen/Creatinine [Mass ratio] 22.7 mg/mg 10-20 [facility] No Panel InformationOrdered By: Dr. Mary on 04-10-2022 Estimated GFR (MDRD) Amer 40 mL/min >60 [facility] Comment on above: GFR Calc Estimated GFR (MDRD) Non-Af Amer 33 mL/min >60 [facility] Comment on above: Non- GFR Calc Serum or plasma albumin isaías urement (mass/volume)Ordered By: Dr. Mary on 04-10-2022 Albumin [Mass/Vol] 3.3 g/dL 3.2-5.0 [facility] Serum or plasma calcium isaías urement (mass/volume)Ordered By: Dr. Mary on 04-10-2022 Calcium [Mass/Vol] 9.0 mg/dL 8.5-10.1 [facility] Serum or plasma creatinine m easurement (mass/volume)Ordered By: Dr. Mary on 04-10-2022 Creatinine [Mass/Vol] 1.63 mg/dL 0.55-1.[address] [facility] Comment on above: The validity of the calculated GFR & GFRAA in patients over 70 years has not been determined. Clinical correlation is essential. Serum or plasma urea nitroge n measurement (mass/volume)Ordered By: Dr. Mary on 04-10-2022 Urea nitrogen [Mass/Vol] 37 mg/dL 7-18 [facility] Culture, urineOrdered By: Dr Saman Mary on 04-06-2022 Bacteria identified Cx Nom (U) Negative [facility] Bacteria identified Cx Nom (U) Streptococcus group B [facility] Basophil percentageOrdered B y: Dr. Mary on 04-03-2022 Basophil percentage 3.1 mg/dL 2.5-4.9 [facility] Chloride [Moles/Vol] 108 mmol/L 98-107 [facility] Glucose [Mass/Vol] 98 mg/dL 74-106 [facility] Potassium [Moles/Vol] 4.0 mmol/L 3.5-5.[address] [facility] Sodium [Moles/Vol] 137 mmol/L 136-145 [facility] Laboratory - Chemistry and C hemistry - challengeOrdered By: Dr. Mary on 04-03-2022 CO2 [Moles/Vol] 21.0 mmol/L 21.0-32.0 [facility] Urea nitrogen/Creatinine [Mass ratio] 22.9 mg/mg 10-20 [facility] No Panel InformationOrdered By: Dr. Mary on 04-03-2022 Estimated GFR (MDRD) Amer 37 mL/min >60 [facility] Comment on above: GFR Calc Estimated GFR (MDRD) Non-Af Amer 30 mL/min >60 [facility] Comment on above: Non- GFR Calc Serum or plasma albumin isaías urement (mass/volume)Ordered By: Dr. Mary on 04-03-2022 Albumin [Mass/Vol] 3.4 g/dL 3.2-5.0 [facility] Serum or plasma calcium isaías urement (mass/volume)Ordered By: Dr. Mary on 04-03-2022 Calcium [Mass/Vol] 9.1 mg/dL 8.5-10.1 [facility] Serum or plasma creatinine m easurement (mass/volume)Ordered By: Dr. Mary on 04-03-2022 Creatinine [Mass/Vol] 1.75 mg/dL 0.55-1.[address] [facility] Comment on above: The validity of the calculated GFR & GFRAA in patients over 70 years has not been determined. Clinical correlation is essential. Serum or plasma urea nitroge n measurement (mass/volume)Ordered By: Dr. Mary on 04-03-2022 Urea nitrogen [Mass/Vol] 40 mg/dL 09-19 [facility] CHEST 2 VIEW PA AND LATon CHEST 2 VIEW PA AND LAT Patient Name: IVONNE MAYA STUDY: CHEST 2 VIEW PA AND LAT; 03/27/2022 4:41 pm INDICATION: OTHER CHEST PAIN. COMPARISON: None ACCESSION NUMBER(S): [id number] ORDERING CLINICIAN: MALACHI LOWRY FINDINGS: PA and [...] evaluation. Electronically signed by: GAIL PRECIADO MD [facility] Basophil percentageOrdered B y: Dr. Mary on 03-20-2022 Basophil percentage 2.3 mg/dL 2.5-4.9 [facility] Chloride [Moles/Vol] 106 mmol/L 98-107 [facility] Glucose [Mass/Vol] 94 mg/dL 74-106 [facility] Potassium [Moles/Vol] 4.3 mmol/L 3.5-5.[address] [facility] Comment on above: Slight Hemolysis, Re sult may be falsely increased. Sodium [Moles/Vol] 135 mmol/L 136-145 [facility] WBC (Bld) [#/Vol] 9.5 10*3/uL 4.4-11.0 [facility] Blood erythrocytes count (nu mber/volume)Ordered By: Dr. Mary on 03-20-2022 RBC (Bld) [#/Vol] 2.69 10*6/uL 4.2-5.4 [facility] Blood hemoglobin measurement (mass/volume)Ordered By: Dr. Mary on 03-20-2022 Hemoglobin (Bld) [Mass/Vol] 8.6 g/dL 12.0-15. 0 [facility] Blood platelet mean volumeOr dered By: Dr. Mary on 03-20-2022 Platelet mean volume (Bld) [Entitic vol] 9.8 fL 6.2-12.0 [facility] Determination of erythrocyte mean corpuscular volume (MCV)Ordered By: Dr. Mary on 03-20-2022 MCV (RBC) [Entitic vol] 100.0 fL 81-99 [facility] Hematocrit Auto (Bld) [Volum e fraction]Ordered By: Dr. Mary on 03-20-2022 Hematocrit (Bld) [Volume fraction] 26.9 % 37-47 [facility] Laboratory - Chemistry and C hemistry - challengeOrdered By: Dr. Mary on 03-20-2022 CO2 [Moles/Vol] 21.0 mmol/L 21.0-32.0 [facility] Urea nitrogen/Creatinine [Mass ratio] 13.0 mg/mg 10-20 [facility] Laboratory - Hematology and Cell countsOrdered By: Dr. Mary on 03-20-2022 Erythrocyte distribution width (RBC) [Entitic vol] 56.1 fL 35.1-43.9 [facility] Erythrocyte distribution width (RBC) [Ratio] 15.2 % 11.6-14.6 [facility] MCH (RBC) [Entitic mass] 32.0 pg 27.0-32.0 [facility] MCHC Auto (RBC) [Mass/Vol]Or dered By: Dr. Mary on 03-20-2022 MCHC (RBC) [Mass/Vol] 32.0 g/dL 32-[address] [facility] No Panel InformationOrdered By: Dr. Mary on 03-20-2022 Estimated GFR (MDRD) Amer 33 mL/min >60 [facility] Comment on above: GFR Calc Estimated GFR (MDRD) Non-Af Amer 27 mL/min >60 [facility] Comment on above: Non- GFR Calc Platelets bldOrdered By: Dr. Mary on 03-20-2022 Platelets (Bld) [#/Vol] 362 10*3/uL 150-450 [facility] Serum or plasma albumin isaías urement (mass/volume)Ordered By: Dr. Mary on 03-20-2022 Albumin [Mass/Vol] 3.3 g/dL 3.2-5.0 [facility] Serum or plasma calcium isaías urement (mass/volume)Ordered By: Dr. Mary on 03-20-2022 Calcium [Mass/Vol] 8.4 mg/dL 8.5-10.1 [facility] Serum or plasma creatinine m easurement (mass/volume)Ordered By: Dr. Mary on 03-20-2022 Creatinine [Mass/Vol] 1.92 mg/dL 0.55-1.[address] [facility] Comment on above: The validity of the calculated GFR & GFRAA in patients over 70 years has not been determined. Clinical correlation is essential. Serum or plasma urea nitroge n measurement (mass/volume)Ordered By: Dr. Mary on 03-20-2022 Urea nitrogen [Mass/Vol] 25 mg/dL 7-18 [facility] Culture, urineOrdered By: Dr Saman Mary on 03-10-2022 Bacteria identified Cx Nom (U) Positive [facility] Basophil percentageOrdered B y: Dr. Mary on 03-08-2022 Basophil percentage 0-5 SEEN /hpf 0-5 [facility] Bilirubin Test strip Ql (U)O rdered By: Dr. Mary on 03-08-2022 Bilirubin Ql (U) Negative Negative [facility] Ketones Test strip Ql (U)Ord ered By: Dr. Mary on 03-08-2022 Ketones Ql (U) Negative Negative [facility] Mucus LM Ql (Urine sed)Order ed By: Dr. Mary on 03-08-2022 Mucus Ql (Urine sed) 0 SEEN /hpf [facility] Nitrite Test strip Ql (U)Ord ered By: Dr. Mary on 03-08-2022 Nitrite Ql (U) Negative Negative [facility] Protein Test strip Ql (U)Ord ered By: Dr. Mary on 03-08-2022 Protein Ql (U) 30 mg/dl Negative [facility] Squamous epithelial cells de tection in urine sediment by light microscopyOrdered By: Dr. Mary on 03-08-2022 Epithelial cells.squamous LM Ql (Urine sed) 0 SEEN /hpf 5-10 [facility] Urine blood detectionOrdered By: Dr. Mary on 03-08-2022 RBC Ql (U) 10 /ul Negative [facility] RBC Ql (U) 0-5 SEEN /hpf 0-5 [facility] Urine clarityOrdered By: Dr. Mary on 03-08-2022 Clarity (U) Clear Clear [facility] Urine color determinationOrd ered By: Dr. Mary on 03-08-2022 Color (U) Yellow Yellow [facility] Urine glucose detectionOrder ed By: Dr. Mary on 03-08-2022 Glucose Ql (U) 100 mg/dl Normal [facility] Urine leukocyte esterase det ection by dipstickOrdered By: Dr. Mary on 03-08-2022 Leukocyte esterase Test strip Ql (U) Negative Negative [facility] Urine pHOrdered By: Dr. Mary on 03-08-2022 pH (U) 6.0 [pH] 5.0 - 8.0 [facility] Urine sediment bacteria coun t by microscopy (number/high power field)Ordered By: Dr. Mary on 03-08-2022 Bacteria LM.HPF (Urine sed) [#/Area] 1 /[HPF] None Seen [facility] Urine specific gravity measu rementOrdered By: Dr. Mary on 03-08-2022 Specific gravity (U) [Rel density] 1.010 1.002-1.03 0 [facility] Urobilinogen Auto test strip Ql (U)Ordered By: Dr. Mary on 03-08-2022 Urobilinogen Ql (U) Normal mg/dl Normal [facility] Basophil percentageOrdered B y: Dr. Mary on 02-28-2022 Basophil percentage 2.3 mg/dL 2.5-4.9 [facility] Chloride [Moles/Vol] 110 mmol/L 98-107 [facility] Glucose [Mass/Vol] 112 mg/dL 74-106 [facility] Comment on above: Fasting Glucose resu lt from 100 to 125 mg/dL suggests IMPAIRED HOMEOSTASIS per A.D.A. criteria. Potassium [Moles/Vol] 3.6 mmol/L 3.5-5.[address] [facility] Sodium [Moles/Vol] 141 mmol/L 136-145 [facility] Laboratory - Chemistry and C hemistry - challengeOrdered By: Dr. Mary on 02-28-2022 CO2 [Moles/Vol] 21.0 mmol/L 21.0-32.0 [facility] Urea nitrogen/Creatinine [Mass ratio] 11.5 mg/mg 10-20 [facility] No Panel InformationOrdered By: Dr. Mary on 02-28-2022 Estimated GFR (MDRD) Amer 29 mL/min >60 [facility] Comment on above: GFR Calc Estimated GFR (MDRD) Non-Af Amer 24 mL/min >60 [facility] Comment on above: Non- GFR Calc Serum or plasma albumin isaías urement (mass/volume)Ordered By: Dr. Mary on 02-28-2022 Albumin [Mass/Vol] 3.4 g/dL 3.2-5.0 [facility] Serum or plasma calcium isaías urement (mass/volume)Ordered By: Dr. Mary on 02-28-2022 Calcium [Mass/Vol] 8.6 mg/dL 8.5-10.1 [facility] Serum or plasma creatinine m easurement (mass/volume)Ordered By: Dr. Mary on 02-28-2022 Creatinine [Mass/Vol] 2.18 mg/dL 0.55-1.[address] [facility] Comment on above: The validity of the calculated GFR & GFRAA in patients over 70 years has not been determined. Clinical correlation is essential. Serum or plasma urea nitroge n measurement (mass/volume)Ordered By: Dr. Mary on 02-28-2022 Urea nitrogen [Mass/Vol] 25 mg/dL 7-18 [facility] Basophil percentageon 2021 Basophil percentage 2.5 mg/dL 2.5-4.9 [facility] Work Phone: [phone] Chloride [Moles/Vol] 109 mmol/L 98-107 [facility] Work Phone: Glucose [Mass/Vol] 88 mg/dL 74-106 [facility] Work Phone: Potassium [Moles/Vol] 2.9 mmol/L 3.5-5.[address] [facility] Work Phone: Sodium [Moles/Vol] 138 mmol/L 136-145 [facility] Work Phone: Basophil percentageOrdered B y: Dr. Mary on 02-20-2022 WBC (Bld) [#/Vol] 16.5 10*3/uL 4.4-11.0 [facility] Blood erythrocytes count (nu mber/volume)Ordered By: Dr. Mary on 02-20-2022 RBC (Bld) [#/Vol] 2.64 10*6/uL 4.2-5.4 [facility] Blood hemoglobin measurement (mass/volume)Ordered By: Dr. Mary on 02-20-2022 Hemoglobin (Bld) [Mass/Vol] 8.1 g/dL 12.0-15. 0 [facility] Blood platelet mean volumeOr dered By: Dr. Mary on 02-20-2022 Platelet mean volume (Bld) [Entitic vol] 10.7 fL 6.2-12.0 [facility] Determination of erythrocyte mean corpuscular volume (MCV)Ordered By: Dr. Mary on 02-20-2022 MCV (RBC) [Entitic vol] 97.0 fL 81-99 [facility] Hematocrit Auto (Bld) [Volum e fraction]Ordered By: Dr. Mary on 02-20-2022 Hematocrit (Bld) [Volume fraction] 25.6 % 37-47 [facility] Iron measurement (mass/mass) Ordered By: Dr. Mary on 02-20-2022 Iron (Unsp spec) [Mass/Mass] 89 ug/dL 50-170 [facility] Laboratory - Chemistry and C hemistry - challengeon 02-20-2022 CO2 [Moles/Vol] 15.0 mmol/L 21.0-32.0 [facility] Work Phone: Urea nitrogen/Creatinine [Mass ratio] 13.1 mg/mg 10-20 [facility] Work Phone: Laboratory - Hematology and Cell countsOrdered By: Dr. Mary on 02-20-2022 Erythrocyte distribution width (RBC) [Entitic vol] 54.2 fL 35.1-43.9 [facility] Erythrocyte distribution width (RBC) [Ratio] 15.3 % 11.6-14.6 [facility] MCH (RBC) [Entitic mass] 30.7 pg 27.0-32.0 [facility] MCHC Auto (RBC) [Mass/Vol]Or dered By: Dr. Mary on 02-20-2022 MCHC (RBC) [Mass/Vol] 31.6 g/dL 32-[address] [facility] No Panel Informationon 02-20 Estimated GFR (MDRD) Amer 18 mL/min >60 [facility] Work Phone: Comment on above: GFR Calc Estimated GFR (MDRD) Non-Af Amer 15 mL/min >60 [facility] Work Phone: Comment on above: Non- GFR Calc No Panel InformationOrdered By: Dr. Mary on 02-20-2022 Total Iron Binding Capacity 221 ug/dL 250-450 [facility] Platelets bldOrdered By: Dr. Mary on 02-20-2022 Platelets (Bld) [#/Vol] 307 10*3/uL 150-450 [facility] Serum or plasma albumin isaías urement (mass/volume)on 02-20-2022 Albumin [Mass/Vol] 3.2 g/dL 3.2-5.0 [facility] Work Phone: Serum or plasma calcium isaías urement (mass/volume)on 02-20-2022 Calcium [Mass/Vol] 8.0 mg/dL 8.5-10.1 [facility] Work Phone: Serum or plasma creatinine m easurement (mass/volume)on 02-20-2022 Creatinine [Mass/Vol] 3.21 mg/dL 0.55-1.[address] [facility] Work Phone: Comment on above: The validity of the calculated GFR & GFRAA in patients over 70 years has not been determined. Clinical correlation is essential. Serum or plasma ferritin davie surement (mass/volume)Ordered By: Dr. Mary on 02-20-2022 Ferritin [Mass/Vol] 408 ng/mL 8- [facility] Serum or plasma iron saturat ion measurement (mass fraction)Ordered By: Dr. Mary on 02-20-2022 Iron saturation [Mass fraction] 40.3 % 15.0-55.0 [facility] Serum or plasma urea nitroge n measurement (mass/volume)on 02-20-2022 Urea nitrogen [Mass/Vol] 42 mg/dL 7-18 [facility] Work Phone: Respiratory pathogens DNA an d RNA 12b panel MONA+probe (Unsp spec)Ordered By: Dr. Lowry on 02-16-2022 Respiratory Panel (PCR) Influenzae A [facility] Atypical perinuclear antineu trophil cytoplasmic antibodies measurementOrdered By: Dr. Mary on 02-13-2022 Neutrophil cytoplasmic Ab.perinuclear.atypical IF (S) [Titer] 1:160 titer Neg:<1:20 [facility] Comment on above: The atypical pANCA p attern has been observed in asignificant percentage of patients with ulcerative colitis,primary sclerosing cholangitis and autoimmune hepatitis.Performed at: [address] [id number] Director: Hunter Gandhi PhD, Phone: [phone] No Panel InformationOrdered By: Dr. Mary on 02-13-2022 Miscellaneous Test See comment [facility] Comment on above: TEST RESULT LIMITSRe nal Panel (10)Glucose 98 mg/dL 70-99BUN 53 High mg/dL 8-27Creatinine 3.52 High mg/dL 0.57-1.00eGFR 13 Low mL/min/1.73 >59BUN/Creatinine Ratio 15 12-28Sodium 142 mmol/L 134-144Potassium 3.8 mmol/L 3.5-5.2Chloride 109 High mmol/L 96-106Carbon Dioxide, Total 14 Low mmol/L 20-29 Verified by repeat analysisCalcium 8.1 Low mg/dL 8.7-10.3Phosphorus 3.0 mg/dL 3.0-4.3Albumin 3.8 g/dL 3.7-4.7 TESTING PERFORMED AT [facility]. ORIGINAL REPORT ON FILE IN LAB CONTAINS ADDITIONAL TEST SITE INFORMATION. Serum classic neutrophil cyt oplasmic antibody assay (units/volume)Ordered By: Dr. Mary on 02-13-2022 Neutrophil cytoplasmic Ab.classic Qn (S) <1:20 titer Neg:<1:20 [facility] Serum perinuclear neutrophil cytoplasmic antibody titer by immunofluorescenceOrdered By: Dr. Mary on 02-13-2022 Neutrophil cytoplasmic Ab.perinuclear IF (S) [Titer] <1:20 titer Neg:<1:20 [facility] Comment on above: The presence of posi tive fluorescence exhibiting P-ANCA orC-ANCA patterns alone is not specific for the diagnosis ofWegener's Granulomatosis (WG) or microscopic polyangiitis.Decisions about treatment should not be based solely onANCA IFA results. The [employer] ANCA [employer] Consensusrecommends follow up testing of positive sera with both NV-3 and MPO-ANCA enzyme immunoassays. As many as 5% serumsamples are positive only by EIA. Ref. AM J Clin [id number];111:507-513. Basophil percentageOrdered B y: Dr. Mary on 02-09-2022 Basophil percentage 3.6 mg/dL 2.5-4.9 [facility] Chloride [Moles/Vol] 113 mmol/L 98-107 [facility] Glucose [Mass/Vol] 160 mg/dL 74-106 [facility] Comment on above: Fasting Glucose resu lt greater than or equal to 126 mg/dL suggests DIABETES MELLITUS per A.D.A. criteria. Potassium [Moles/Vol] 3.1 mmol/L 3.5-5.[address] [facility] Sodium [Moles/Vol] 140 mmol/L 136-145 [facility] WBC (Bld) [#/Vol] 10.8 10*3/uL 4.4-11.0 [facility] Blood erythrocytes count (nu mber/volume)Ordered By: Dr. Mary on 02-09-2022 RBC (Bld) [#/Vol] 2.91 10*6/uL 4.2-5.4 [facility] Blood hemoglobin measurement (mass/volume)Ordered By: Dr. Mary on 02-09-2022 Hemoglobin (Bld) [Mass/Vol] 9.3 g/dL 12.0-15. 0 [facility] Blood platelet mean volumeOr dered By: Dr. Mary on 02-09-2022 Platelet mean volume (Bld) [Entitic vol] 9.5 fL 6.2-12.0 [facility] Determination of erythrocyte mean corpuscular volume (MCV)Ordered By: Dr. Mary on 02-09-2022 MCV (RBC) [Entitic vol] 91.1 fL 81-99 [facility] Hematocrit Auto (Bld) [Volum e fraction]Ordered By: Dr. Mary on 02-09-2022 Hematocrit (Bld) [Volume fraction] 26.5 % 37-47 [facility] Laboratory - Chemistry and C hemistry - challengeOrdered By: Dr. Mary on 02-09-2022 CO2 [Moles/Vol] 16.0 mmol/L 21.0-32.0 [facility] Urea nitrogen/Creatinine [Mass ratio] 12.2 mg/mg 10-20 [facility] Laboratory - Hematology and Cell countsOrdered By: Dr. Mary on 02-09-2022 Erythrocyte distribution width (RBC) [Entitic vol] 48.4 fL 35.1-43.9 [facility] Erythrocyte distribution width (RBC) [Ratio] 14.6 % 11.6-14.6 [facility] MCH (RBC) [Entitic mass] 32.0 pg 27.0-32.0 [facility] MCHC Auto (RBC) [Mass/Vol]Or dered By: Dr. Mary on 02-09-2022 MCHC (RBC) [Mass/Vol] 35.1 g/dL 32-[address] [facility] No Panel InformationOrdered By: Dr. Mary on 02-09-2022 Estimated GFR (MDRD) Amer 12 mL/min >60 [facility] Comment on above: GFR Calc Estimated GFR (MDRD) Non-Af Amer 10 mL/min >60 [facility] Comment on above: Non- GFR Calc Platelets bldOrdered By: Dr. Mary on 02-09-2022 Platelets (Bld) [#/Vol] 452 10*3/uL 150-450 [facility] Serum or plasma albumin isaías urement (mass/volume)Ordered By: Dr. Mary on 02-09-2022 Albumin [Mass/Vol] 3.2 g/dL 3.2-5.0 [facility] Serum or plasma calcium isaías urement (mass/volume)Ordered By: Dr. Mary on 02-09-2022 Calcium [Mass/Vol] 8.9 mg/dL 8.5-10.1 [facility] Serum or plasma creatinine m easurement (mass/volume)Ordered By: Dr. Mary on 02-09-2022 Creatinine [Mass/Vol] 4.59 mg/dL 0.55-1.[address] [facility] Comment on above: The validity of the calculated GFR & GFRAA in patients over 70 years has not been determined. Clinical correlation is essential. Serum or plasma urea nitroge n measurement (mass/volume)Ordered By: Dr. Mary on 02-09-2022 Urea nitrogen [Mass/Vol] 56 mg/dL 7-18 [facility] Basophil percentageOrdered B y: Dr. Mary on 02-03-2022 Basophil percentage 3.3 mg/dL 2.5-4.9 [facility] Chloride [Moles/Vol] 112 mmol/L 98-107 [facility] Glucose [Mass/Vol] 106 mg/dL 74-106 [facility] Comment on above: Fasting Glucose resu lt from 100 to 125 mg/dL suggests IMPAIRED HOMEOSTASIS per A.D.A. criteria. Potassium [Moles/Vol] 2.8 mmol/L 3.5-5.[address] [facility] Sodium [Moles/Vol] 140 mmol/L 136-145 [facility] WBC (Bld) [#/Vol] 8.2 10*3/uL 4.4-11.0 [facility] Blood erythrocytes count (nu mber/volume)Ordered By: Dr. Mary on 02-03-2022 RBC (Bld) [#/Vol] 2.90 10*6/uL 4.2-5.4 [facility] Blood hemoglobin measurement (mass/volume)Ordered By: Dr. Mary on 02-03-2022 Hemoglobin (Bld) [Mass/Vol] 8.9 g/dL 12.0-15. 0 [facility] Blood platelet mean volumeOr dered By: Dr. Mary on 02-03-2022 Platelet mean volume (Bld) [Entitic vol] 8.8 fL 6.2-12.0 [facility] Determination of erythrocyte mean corpuscular volume (MCV)Ordered By: Dr. Mary on 02-03-2022 MCV (RBC) [Entitic vol] 90.7 fL 81-99 [facility] Hematocrit Auto (Bld) [Volum e fraction]Ordered By: Dr. Mary on 02-03-2022 Hematocrit (Bld) [Volume fraction] 26.3 % 37-47 [facility] INR in Blood by Coagulation assayOrdered By: Dr. Mary on 02-03-2022 INR Coag (Bld) [Relative time] 1.1 {INR} [facility] Laboratory - Chemistry and C hemistry - challengeOrdered By: Dr. Mary on 02-03-2022 CO2 [Moles/Vol] 20.0 mmol/L 21.0-32.0 [facility] Urea nitrogen/Creatinine [Mass ratio] 9.6 mg/mg 10-20 [facility] Laboratory - CoagulationOrde red By: Dr. Mary on 02-03-2022 aPTT Coag (Bld) [Time] 30.0 s 24.1-36.2 [facility] PT Coag (PPP) [Time] 14.2 s 11.7-14.9 [facility] Laboratory - Hematology and Cell countsOrdered By: Dr. Mary on 02-03-2022 Erythrocyte distribution width (RBC) [Entitic vol] 47.3 fL 35.1-43.9 [facility] Erythrocyte distribution width (RBC) [Ratio] 14.3 % 11.6-14.6 [facility] MCH (RBC) [Entitic mass] 30.7 pg 27.0-32.0 [facility] MCHC Auto (RBC) [Mass/Vol]Or dered By: Dr. Mary on 02-03-2022 MCHC (RBC) [Mass/Vol] 33.8 g/dL 32-[address] [facility] No Panel InformationOrdered By: Dr. Mary on 02-03-2022 Anti-Nuclear Antibody Screen Negative Negative [facility] Comment on above: Performed at: [address] [id number] Director: Hunter Gandhi PhD, Phone: [phone] Estimated GFR (MDRD) Amer 13 mL/min >60 [facility] Comment on above: GFR Calc Estimated GFR (MDRD) Non-Af Amer 11 mL/min >60 [facility] Comment on above: Non- GFR Calc Platelets bldOrdered By: Dr. Mary on 02-03-2022 Platelets (Bld) [#/Vol] 371 10*3/uL 150-450 [facility] Serum or plasma albumin isaías urement (mass/volume)Ordered By: Dr. Mary on 02-03-2022 Albumin [Mass/Vol] 3.1 g/dL 3.2-5.0 [facility] Serum or plasma calcium isaías urement (mass/volume)Ordered By: Dr. Mary on 02-03-2022 Calcium [Mass/Vol] 8.6 mg/dL 8.5-10.1 [facility] Serum or plasma creatinine m easurement (mass/volume)Ordered By: Dr. Mary on 02-03-2022 Creatinine [Mass/Vol] 4.38 mg/dL 0.55-1.[address] [facility] Comment on above: The validity of the calculated GFR & GFRAA in patients over 70 years has not been determined. Clinical correlation is essential. Serum or plasma urea nitroge n measurement (mass/volume)Ordered By: Dr. Mary on 02-03-2022 Urea nitrogen [Mass/Vol] 42 mg/dL 7-18 [facility] Basophil percentageOrdered B y: Dr. Mary on 01-31-2022 Basophil percentage 3.3 mg/dL 2.5-4.9 [facility] Chloride [Moles/Vol] 110 mmol/L 98-107 [facility] Glucose [Mass/Vol] 76 mg/dL 74-106 [facility] Potassium [Moles/Vol] 2.9 mmol/L 3.5-5.[address] [facility] Sodium [Moles/Vol] 141 mmol/L 136-145 [facility] Laboratory - Chemistry and C hemistry - challengeOrdered By: Dr. Mary on 01-31-2022 CO2 [Moles/Vol] 20.0 mmol/L 21.0-32.0 [facility] Urea nitrogen/Creatinine [Mass ratio] 10.1 mg/mg 10-20 [facility] No Panel InformationOrdered By: Dr. Mary on 01-31-2022 Estimated GFR (MDRD) Amer 13 mL/min >60 [facility] Comment on above: GFR Calc Estimated GFR (MDRD) Non-Af Amer 11 mL/min >60 [facility] Comment on above: Non- GFR Calc Serum or plasma albumin isaías urement (mass/volume)Ordered By: Dr. Mary on 01-31-2022 Albumin [Mass/Vol] 3.1 g/dL 3.2-5.0 [facility] Serum or plasma calcium isaías urement (mass/volume)Ordered By: Dr. Mary on 01-31-2022 Calcium [Mass/Vol] 8.6 mg/dL 8.5-10.1 [facility] Serum or plasma creatinine m easurement (mass/volume)Ordered By: Dr. Mary on 01-31-2022 Creatinine [Mass/Vol] 4.24 mg/dL 0.55-1.[address] [facility] Comment on above: The validity of the calculated GFR & GFRAA in patients over 70 years has not been determined. Clinical correlation is essential. Serum or plasma urea nitroge n measurement (mass/volume)Ordered By: Dr. Mary on 01-31-2022 Urea nitrogen [Mass/Vol] 43 mg/dL 7-18 [facility] Urine creatinine measurement (mass/volume)Ordered By: Dr. Mary on 01-31-2022 Creatinine (U) [Mass/Vol] 54.70 mg/dL NO RANGE EST. [facility] Urine protein measurement (m ass/volume)Ordered By: Dr. Mary on 01-31-2022 Protein (U) [Mass/Vol] 103.7 mg/dL 0.0-11.8 [facility] Urine protein/creatinine mas s ratioOrdered By: Dr. Mary on 01-31-2022 Protein/Creatinine (U) [Mass ratio] 1896 mg/g CRE 0-200 [facility] Basophil percentageOrdered B y: Dr. Mccrary on 01-23-2022 Chloride [Moles/Vol] 113 mmol/L 98-107 [facility] Glucose [Mass/Vol] 110 mg/dL 74-106 [facility] Comment on above: Fasting Glucose resu lt from 100 to 125 mg/dL suggests IMPAIRED HOMEOSTASIS per A.D.A. criteria. Potassium [Moles/Vol] 3.6 mmol/L 3.5-5.[address] [facility] Sodium [Moles/Vol] 140 mmol/L 136-145 [facility] Laboratory - Chemistry and C hemistry - challengeOrdered By: Dr. Mccrary on 01-23-2022 CO2 [Moles/Vol] 20.0 mmol/L 21.0-32.0 [facility] Urea nitrogen/Creatinine [Mass ratio] 13.7 mg/mg 10-20 [facility] No Panel InformationOrdered By: Dr. Mccrary on 01-23-2022 Estimated GFR (MDRD) Amer 18 mL/min >60 [facility] Comment on above: GFR Calc Estimated GFR (MDRD) Non-Af Amer 15 mL/min >60 [facility] Comment on above: Non- GFR Calc Serum or plasma calcium isaías urement (mass/volume)Ordered By: Dr. Mccrary on 01-23-2022 Calcium [Mass/Vol] 8.6 mg/dL 8.5-10.1 [facility] Serum or plasma creatinine m easurement (mass/volume)Ordered By: Dr. Mccrary on 01-23-2022 Creatinine [Mass/Vol] 3.28 mg/dL 0.55-1.[address] [facility] Comment on above: The validity of the calculated GFR & GFRAA in patients over 70 years has not been determined. Clinical correlation is essential. Serum or plasma urea nitroge n measurement (mass/volume)Ordered By: Dr. Mccrary on 01-23-2022 Urea nitrogen [Mass/Vol] 45 mg/dL 7-18 [facility] Thin prep Papanicolaou smear with manual screeningOrdered By: Dr. Mccrary on 01-23-2022 Thin prep Papanicolaou smear with manual screening 7 5-15 [facility] Absolute lymphocyte countOrd ered By: Dr. Mccrary on 01-18-2022 Lymphocytes Auto (Unsp spec) [#/Vol] 1.56 10*3/uL 0.83-4.51 [facility] Basophil percentageOrdered B y: Dr. Mccrary on 01-18-2022 Basophils/100 WBC (Bld) 1.3 % 0-1 [facility] Bilirubin [Mass/Vol] 0.40 mg/dL 0.20-1.00 [facility] Comment on above: For patients on eltr ombopag therapy, use of Dimension [place] TBIL is not recommended. Chloride [Moles/Vol] 107 mmol/L 98-107 [facility] Cholesterol [Mass/Vol] 152 mg/dL <200 [facility] Comment on above: <200 mg/dL Desirable 200-240 mg/dL Borderline >240 mg/dL High Risk Eosinophils/100 WBC (Bld) 4.1 % 0-5 [facility] Glucose [Mass/Vol] 84 mg/dL 74-106 [facility] Neutrophils (Bld) [#/Vol] 7.0 10*3/uL 2.0-7.7 [facility] Neutrophils/100 WBC (Bld) 69.8 % 47-70 [facility] Potassium [Moles/Vol] 2.9 mmol/L 3.5-5.[address] [facility] Protein [Mass/Vol] 7.5 g/dL 6.4-8.2 [facility] Sodium [Moles/Vol] 142 mmol/L 136-145 [facility] Triglyceride [Mass/Vol] 73 mg/dL <199 [facility] Comment on above: The drugs N-Acetylcy steine and Metamizole may falsely depress this assay.Serum Triglycerides Reference Interval Normal <150 mg/dL Borderline high 150 - 199 mg/dL High 200 - 499 mg/dL Very High > or = 500 mg/dL WBC (Bld) [#/Vol] 10.0 10*3/uL 4.4-11.0 [facility] Blood erythrocytes count (nu mber/volume)Ordered By: Dr. Mccrary on 01-18-2022 RBC (Bld) [#/Vol] 3.12 10*6/uL 4.2-5.4 [facility] Blood hemoglobin measurement (mass/volume)Ordered By: Dr. Mccrary on 01-18-2022 Hemoglobin (Bld) [Mass/Vol] 9.7 g/dL 12.0-15. 0 [facility] Blood lymphocytes/100 leukoc ytesOrdered By: Dr. Mccrary on 01-18-2022 Lymphocytes/100 WBC (Bld) 15.6 % 19-41 [facility] Blood monocytes/100 leukocyt esOrdered By: Dr. Mccrary on 01-18-2022 Monocytes/100 WBC (Bld) 8.8 % 0-10 [facility] Blood platelet mean volumeOr dered By: Dr. Mccrary on 01-18-2022 Platelet mean volume (Bld) [Entitic vol] 10.3 fL 6.2-12.0 [facility] Determination of erythrocyte mean corpuscular volume (MCV)Ordered By: Dr. Mccrary on 01-18-2022 MCV (RBC) [Entitic vol] 92.9 fL 81-99 [facility] Direct bilirubinOrdered By: Dr. Mccrary on 01-18-2022 Bilirubin.direct [Mass/Vol] 0.13 mg/dL 0.00-0.3 0 [facility] Hematocrit Auto (Bld) [Volum e fraction]Ordered By: Dr. Mccrary on 01-18-2022 Hematocrit (Bld) [Volume fraction] 29.0 % 37-47 [facility] Laboratory - Chemistry and C hemistry - challengeOrdered By: Dr. Mccrary on 01-18-2022 ALP [Catalytic activity/Vol] 63 U/L 45-117 [facility] ALT [Catalytic activity/Vol] 17 U/L 13-56 [facility] CO2 [Moles/Vol] 25.0 mmol/L 21.0-32.0 [facility] Globulin (S) [Mass/Vol] 4.5 g/dL 2.2-4.2 [facility] Urea nitrogen/Creatinine [Mass ratio] 16.3 mg/mg 10-20 [facility] Laboratory - Hematology and Cell countsOrdered By: Dr. Mccrary on 01-18-2022 Erythrocyte distribution width (RBC) [Entitic vol] 43.0 fL 35.1-43.9 [facility] Erythrocyte distribution width (RBC) [Ratio] 12.9 % 11.6-14.6 [facility] Immature granulocytes/100 WBC (Bld) 0.400 % 0.0-0.9 [facility] Comment on above: IG% - Immature Granu locytes (promyelocytes, myelocytes and metamyelocytes) > 1% indicates that a LEFT SHIFT is Present. MCH (RBC) [Entitic mass] 31.1 pg 27.0-32.0 [facility] Nucleated RBC/100 WBC (Bld) [Ratio] 0 % 0-5 [facility] MCHC Auto (RBC) [Mass/Vol]Or dered By: Dr. Mccrary on 01-18-2022 MCHC (RBC) [Mass/Vol] 33.4 g/dL 32-[address] [facility] No Panel InformationOrdered By: Dr. Mccrary on 01-18-2022 Estimated GFR (MDRD) Amer 21 mL/min >60 [facility] Comment on above: GFR Calc Estimated GFR (MDRD) Non-Af Amer 17 mL/min >60 [facility] Comment on above: Non- GFR Calc Thyroid Stimulating Hormone (TSH) 1.73 uIU/mL 0.358-3.74 [facility] Platelets bldOrdered By: Dr. Mccrary on 01-18-2022 Platelets (Bld) [#/Vol] 323 10*3/uL 150-450 [facility] Serum or plasma albumin isaías urement (mass/volume)Ordered By: Dr. Mccrary on 01-18-2022 Albumin [Mass/Vol] 3.0 g/dL 3.2-5.0 [facility] Serum or plasma calcium isaías urement (mass/volume)Ordered By: Dr. Mccrary on 01-18-2022 Calcium [Mass/Vol] 8.9 mg/dL 8.5-10.1 [facility] Serum or plasma cholesterol in HDL measurement (mass/volume)Ordered By: Dr. Mccrary on 01-18-2022 Cholesterol in HDL [Mass/Vol] 52 mg/dL >40 [facility] Comment on above: The drugs N-Acetylcy steine and Metamizole may falsely depress this assay. Reference Range HDL <40 mg/dL Low HDL Cholesterol HDL >or= 60 mg/dL High HDL Cholesterol Serum or plasma cholesterol in VLDL measurement (mass/volume)Ordered By: Dr. Mccrary on 01-18-2022 Cholesterol in VLDL [Mass/Vol] 15 mg/dL 5-40 [facility] Serum or plasma creatinine m easurement (mass/volume)Ordered By: Dr. Mccrary on 01-18-2022 Creatinine [Mass/Vol] 2.89 mg/dL 0.55-1.[address] [facility] Comment on above: The validity of the calculated GFR & GFRAA in patients over 70 years has not been determined. Clinical correlation is essential. Serum or plasma low density lipoprotein (LDL) cholesterol measurement (mass/volume)Ordered By: Dr. Mccrary on 01-18-2022 Cholesterol in LDL [Mass/Vol] 85 mg/dL 0-130 [facility] Serum or plasma urea nitroge n measurement (mass/volume)Ordered By: Dr. Mccrary on 01-18-2022 Urea nitrogen [Mass/Vol] 47 mg/dL 7-18 [facility] Thin prep Papanicolaou smear with manual screeningOrdered By: Dr. Mccrary on 01-18-2022 Thin prep Papanicolaou smear with manual screening 11 U/L 15-37 [facility] Thin prep Papanicolaou smear with manual screening 10 5-15 [facility] PT Progress Noteon 2 PT Progress Note [...] in clinic is 30 minutes. Therapeutic exercise (58135): timed minutes 10, units 1 . reviewed HEP wall march 2x10 ea N NOT TODAY golf swing [facility] review X wall lean with mini squat x10 X hooklying clamshell 2x10 faith SLR B 2x10 [P - reps] bridges 2x10 hip ext stretch 45 ea pirif stretch x45 B LTR x10 hooklying hip add (ball squeeze), 2x10 hooklying alt marches with TrA: x20 ea hip ext OET 2x10 ea seated Hadd 2x10 ea green [P - resistance] core stability and trunk [facility] trng.-A . Manual Therapy (93590):. DN-50mm B lumb paraspinals-10' unbilled-A STW-A. Provided [...] max ADL C/C sx ( 07/12) 2-3wks 07/12 amax sx within the last 5 days; [...] butt. Insurance Insurance reviewed Visit number: 5 [facility] 35$ copay Evaluating therapist Maximiliano Garland [...] in clinic is 30 minutes. Therapeutic exercise (25807): timed minutes 10, units 1 . reviewed HEP wall may 2x10 ea N NOT TODAY golf swing [facility] review X wall lean with mini squat x10 X hooklying clamshell 2x10 faith SLR B 2x10 [P - reps] bridges 2x10 hip ext stretch 45 ea pirif stretch x45 B LTR x10 hooklying hip add (ball squeeze), 2x10 hooklying alt marches with TrA: x20 ea hip ext OET 2x10 ea seated Hadd 2x10 ea green [P - resistance] core stability and trunk [facility] trng.-A . Manual Therapy (02585):. DN-50mm B lumb paraspinals-10' unbilled-A STW-A. Provided today:. HEP handout. 'Scores and Scales' Signatures Electronically signed by : Forest Garland, PT; Oct 13 2021 11:53AM EST (Author) Normal [facility] PT Progress Noteon 2 PT Progress Note [...] butt. Insurance Insurance reviewed Visit number: 4 [facility] 35$ copay Evaluating therapist Maximiliano Garland PT. M48.061 Subjective Patient reports:. 1/ pain right now. I golfed and my [...] code time is 25 minutes. Therapeutic exercise (20673): timed minutes 25, units 2 . golf [...] pool unloading maybe pursued PRN-A. Manual Therapy (12199):. DN-50mm B lumb paraspinals-10' unbilled STW-A. 'Scores and Scales' Signatures Electronically signed by : Forest Garland, PT; Oct 06 2021 11:36AM EST (Author) Normal [facility] PT Progress Noteon 2 PT Progress Note [...] butt. Insurance Insurance reviewed Visit number: 3 [facility] 35$ copay Evaluating therapist Maximiliano Garland PT. M48.061 Subjective Patient reports:. Golfed 18 holes yesterday without too much difficulty. Did not use Property Disposal Manager; [address] Not having too much pain this morning, mostly discomfort and muscle soreness from golfing. Precautions: Fall Risk: none Pertinent medical HX includes: osteopenia. Treatment Time in clinic started at 0916 Time in clinic ended at 1000 Total time in clinic is 44 minutes. Total timed code time is 40 minutes. Therapeutic exercise (01711): timed minutes 40, units 3 . golf [...] [P - resistance] core stability and trunk [facility] trng.-A pool unloading maybe pursued PRN-A. Manual Therapy (04601):. STW-A. 'Scores and Scales' Signatures Electronically signed by : Dion Urbina TILE MECHANIC HELPER; Oct 04 2021 10:01AM EST (Author) Electronically signed by : Forest Garland, PT; Oct 05 2021 6:57AM EST Normal [facility] PT Progress Noteon PT Progress Note Therapy Diagnosis Assessed Spinal [...] butt. Insurance Insurance reviewed Visit number: 2 [facility] 35$ copay Evaluating therapist Maximiliano Garland PT. M48.061 Subjective Patient reports:. 05/12 pain right now. Precautions: Fall Risk: none [...] Impact Care:. ID confirmed with B-day; speaks afghan No obtrusive barriers to learning identified/observed. Objective [...] code time is 30 minutes. Therapeutic exercise (87161): timed minutes 30, units 2 . golf swing [facility] review wall lean with mini squat x10 X hooklying clamshell 2x10 faith N SLR R 2x10 N pirif stretch 30 B N LTR x10 N hip ext stretch -30 ea hip ext OET 2x10 ea N seated Hadd 2x10 ea orange P core stability and trunk [facility] trng.-A pool unloading maybe pursued PRN-A. Manual Therapy (51076):. STW-A. Evaluation Code: 38089 PT Eval: Low Complexity, 30 min(s). Timed: 15 min(s), 1 unit(s). Resources provided today: HEP handout; Tband. Contacts for Physician Signature First attempt date: 09/21/21. Referring Provider Signature: I am in agreement w (more content not included)... Normal Yo que Vos PT Initial Evaluationon 07-2 PT Initial Evaluation [...] Impact Care:. ID confirmed with B-day; speaks afghan No obtrusive barriers to learning identified/observed. Objective [...] 15 minutes. Treatment Performed Today:. golf swing [facility] review wall lean with mini squat x10 hip ext stretch -30 ea seated Hadd x10 ea yellow core stability and trunk [facility] trng.-A STW -A pool unloading maybe pursued PRN-A. Evaluation Code: 21010 PT Eval: Low Complexity, 30 min(s). Timed: 09300 Therapeutic Exercises, 15 min(s), 1 unit(s). Resources provided today: HEP handout; Tband. Contacts for Physician Signature First attemp (more content not included)... Normal [facility] Clinical Summary: Kavitha giron 04-25-2021 [facility] OP Visit Invalid Interpretation Code [facility] Work Phone: Office Visit: Postop - 1st v cora Rm: 2on 04-25-2021 NEGATED: Highlighted rowxray history of the lumbar spine on 03/23/2021 at [facility] Invalid Interpretation Code [facility] Work Phone: PT Progress Noteon 1 PT [...] Authorization not required after evaluation POC: 07/12 [place] Medicare Adv-$40 copay-EVAL ONLY Supervising PT: Vidhi [...] pain. Precau (more content not included)... Normal [facility] [...] Authorization not required after evaluation POC: 06/12 [place] Medicare Adv-$40 copay-EVAL ONLY Supervising PT: Vidhi [...] code time (more content not included)... Normal [facility] Therapy Communicationon Therapy Communication Message IVONNE MAYA canceled today . Patient called to cancel secondary to being exposed to COVID. Signatures Electronically signed by : Merline Weller PTA; Nov 05 2020 9:39AM EST (Author) Normal [facility] PT Progress Noteon PT Progress Note [...] 10/26/20-01/23/21 Authorization not required after evaluation POC: 05/12 [employer] Medicare Adv-$40 copay-EVAL ONLY Supervising PT: [...] included)... Normal [facility] PT Progress Noteon 1 PT Progress Note Therapy Diagnosis Assessed Gait difficulty (781.2) (R26.9) Pain of left sacroiliac joint (724.6) (M53.3) Strain of muscle, fascia and tendon of the posterior muscle group at thigh level, left thigh, subsequent encounter (843.8) (C69.102D) Plan Goals: Goals set and discussed today. [...] Authorization not required after evaluation POC: 04/14 [place] Medicare Adv-$40 copay-EVAL ONLY Supervising PT: Vidhi [...] the p (more content not included)... Normal [facility] CT Inj Epidur Lumb/Sac 1 Lev LTon 10-06-2019 CT Inj Epidur Lumb/Sac 1 Lev LT Patient Name: IVONNE MAYA CT Exam Date/Time 10/06/2019 11:49:[address] Inj Epidur Lumb/Sac 1 Lev LT Ordering Physician LEEANNA TORIBIO ELLIOT N Accession Number [id number] CPT4 Codes 76424 (CT Inj Epidur Lumb/Sac 1 Lev LT) [...] M Transcribed Date and Time: 10/06/2019 12:48 [facility] CT Inj Epidur Lumb/Sac 1 Lev Lefton 10-06-2019 Patient Name: IVONNE MAYA ---CT--- Exam Date/Time 10/06/2019 11:49:[address] Inj Epidur Lumb/Sac 1 Lev LT Ordering Physician LEEANNA TORIBIO ELLIOT N Accession Number [id number] CPT4 Codes 17214 (CT Inj Epidur Lumb/Sac 1 Lev LT) [...] M Transcribed Date and Time: 10/06/2019 12:48 [place], [place], [facility] Incoming Radiology Results From [facility] - 10/06/2019 12:59 PM EDT Patient Name: IVONNE MAYA ---CT--- Exam Date/Time 10/06/2019 11:49:[address] Inj Epidur Lumb/Sac 1 Lev LT Ordering Physician LEEANNA TORIBIO ELLIOT N Accession Number [id number] CPT4 Codes 73510 (CT Inj Epidur Lumb/Sac 1 Lev LT) [...] M Transcribed Date and Time: 10/06/2019 12:48 [facility], [place] ARTHR/ASP/INJ MAJOR JT/BU RSA LT WO USon 09-24-2019 Patient Name: IVONNE MAYA ---Fluoroscopy--- Exam Date/Time 09/24/2019 11:41:25 EDT Exam RF Arthrogram Aspir Inj Ruiz Jt Left Ordering Physician LEEANNA TORIBIO ELLIOT N Accession Number [id number] CTP4 Codes 54071 (), 76904 (RF FLUORO GUIDANCE NEEDLE PLACEMENT) Reason For Exam pain of left sacroiliac joint Report Examination: Left sacroiliac joint injection Indication: Left SI joint pain Findings: Informed consent was obtained. Following this the patient was prepped and draped in a sterile fashion. It was difficult to profile the patient's sacroiliac joint by fluoroscopy. The patient's previous MRI on the [facility] PACS was reviewed. The posterior margin of [...] KRIKOR Transcribed Date and Time: 09/24/2019 2:04 [facility], [place], [facility] Incoming Radiology Results From [facility] - 09/24/2019 2:09 PM EDT Patient Name: IVONNE MAYA ---Fluoroscopy--- Exam Date/Time 09/24/2019 11:41:25 EDT Exam RF Arthrogram Aspir Inj Ruiz Jt Left Ordering Physician LEEANNA TORIBIO ELLIOT N Accession Number [id number] CTP4 Codes (), 52641 (RF FLUORO GUIDANCE NEEDLE PLACEMENT) Reason For Exam pain of left sacroiliac joint Report Examination: Left sacroiliac joint injection Indication: Left SI joint pain Findings: Informed consent was obtained. Following this the patient was prepped and draped in a sterile fashion. It was difficult to profile the patient's sacroiliac joint by fluoroscopy. The patient's previous MRI on the [facility] PACS was reviewed. The posterior margin of [...] KRIKOR Transcribed Date and Time: 09/24/2019 2:04 [place], [place] RF Arthrogram Aspir Inj Ruiz Jt Lefton 09-24-2019 RF Arthrogram Aspir Inj Ruiz Jt Left Patient Name: IVONNE MAYA Fluoroscopy Exam Date/Time 09/24/2019 11:41:25 EDT Exam RF Arthrogram Aspir Inj Ruiz Jt Left Ordering Physician LEEANNA TORIBIO ELLIOT N Accession Number [id number] CTP4 Codes 14692 (), 92489 (RF FLUORO GUIDANCE NEEDLE PLACEMENT) Reason For Exam pain of left sacroiliac joint Report Examination: Left sacroiliac joint injection Indication: Left SI joint pain Findings: Informed consent was obtained. Following this the patient was prepped and draped in a sterile fashion. It was difficult to profile the patient's sacroiliac joint by fluoroscopy. The patient's previous MRI on the [facility] PACS was reviewed. The posterior margin of [...] Transcribed Date and Time: 09/24/2019 2:04 Normal [facility] BD Bone Density DEXAon 11-12 BD [...] a 3.7% decrease in bone density from 2014.Left hip total bone density is 0.794 g/sq [...] with a significant decrease in bone density [id number]. FINAL REPORT Dictated: 11/12/2016 11:26 am Danitza Haq DO RSigned (Electronic Signature): 11/12/2016 11:26 amSigned by: Danitza Haq DO Technologist: ERICA [facility] XR Shoulder Complete Righton 10-25-2016 INR Coag [...] pmSigned by: Danitza Haq DO Technologist: MANASA [facility] XR Spine Cervical 4 or 5 Vie [...] levels on the left and at the [id number] C7 levels on the right. C1 and C2 appear anatomically aligned.IMPRESSION:Leeanna milan has developing moderate degenerative disc space narrowing withassociated spondylitic changes and endplate arthritic findings from C4 throughC7 with areas of developing mild to moderate foraminal encroachment asdescribed above. FINAL REPORT Dictated: 10/25/2016 2:34 pm Danitza Haq DO RSigned (Electronic Signature): 10/25/2016 2:34 pmSigned by: Danitza Haq DO Technologist: HLL [facility] No Panel Information [facility] Respiratory pathogens DNA an d RNA 12b panel MONA+probe (Unsp spec) Respiratory Panel (PCR) Influenzae A [facility] Work Phone: Vital Signs Date Time Vital Sign Value Performing Clinician Facility 01-13-2025 09:47-0500 Body height 157 cm Brian Mitan PA-C Work Phone: [facility] 01-13-2025 09:47-0500 Body height 157.48 cm Chance Mitan PA-C Work Phone: [facility] 01-13-2025 09:47-0500 Body mass index (BMI) [Ratio] 27.53 kg/m2 Chance Mitan PA-C Work Phone: [facility] 01-13-2025 09:47-0500 Body weight 68 kg Chance Mitan PA-C Work Phone: [facility] 01-13-2025 09:47-0500 Body weight 68.04 kg Chance Mitan PA-C Work Phone: [facility] 01-13-2025 09:47-0500 BP SITE #1 Chance Mitan PA-C Work Phone: [facility] 01-13-2025 09:47-0500 Diastolic blood pressure 75 mm[Hg] Chance Mitan PA-C Work Phone: [facility] 01-13-2025 09:47-0500 Heart rate 78 /min Chance Mitan PA-C Work Phone: [facility] 01-13-2025 09:47-0500 HGHTCHNVIS Chance Mitan PA-C Work Phone: [facility] 01-13-2025 09:47-0500 Systolic blood pressure 120 mm[Hg] Chance Mitan PA-C Work Phone: [facility] 01-13-2025 09:47-0500 VITALSDONE Chance Mitan PA-C Work Phone: [facility] 12-02-2024 12:54-0400 Body height 157 cm Chance Mitan PA-C Work Phone: [facility] 12-02-2024 12:54-0400 Body height 157.48 cm Chance Mitan PA-C Work Phone: [facility] 12-02-2024 12:54-0400 Body mass index (BMI) [Ratio] 27.53 kg/m2 Chance Mitan PA-C Work Phone: [facility] 12-02-2024 12:54-0400 Body weight 68 kg Chance Mitan PA-C Work Phone: [facility] 12-02-2024 12:54-0400 Body weight 68.04 kg Chance Mitan PA-C Work Phone: [facility] 12-02-2024 12:54-0400 BP SITE #1 Chance Mitan PA-C Work Phone: [facility] 12-02-2024 12:54-0400 Diastolic blood pressure 76 mm[Hg] Chance Mitan PA-C Work Phone: [facility] 12-02-2024 12:54-0400 Heart rate 80 /min Chance Mitan PA-C Work Phone: [facility] 12-02-2024 12:54-0400 HGHTCHNVIS Brina Mitan PA-C Work Phone: [facility] 12-02-2024 12:54-0400 Systolic blood pressure 113 mm[Hg] Brian Mitan PA-C Work Phone: [facility] 12-02-2024 12:54-0400 VITALSDONE Brian Mitan PA-C Work Phone: [facility] 11-06-2024 13:02-0400 Body height 157 cm Robert Clark MD Work Phone: [facility] 11-06-2024 13:02-0400 Body height 157.48 cm Robert Clark MD Work Phone: [facility] 11-06-2024 13:02-0400 Body mass index (BMI) [Ratio] 27.53 kg/m2 Robert Clark MD Work Phone: [facility] 11-06-2024 13:02-0400 Body weight 68 kg Robert Clark MD Work Phone: [facility] 11-06-2024 13:02-0400 Body weight 68.04 kg Robert Clark MD Work Phone: [facility] 11-06-2024 13:02-0400 BP SITE #1 Robert Clark MD Work Phone: [facility] 11-06-2024 13:02-0400 Diastolic blood pressure 66 mm[Hg] Robert Clark MD Work Phone: [facility] 11-06-2024 13:02-0400 HGHTCHNVIS Robert Clark MD Work Phone: [facility] 11-06-2024 13:02-0400 Systolic blood pressure 101 mm[Hg] Robert Clark MD Work Phone: [facility] 11-06-2024 13:02-0400 VITALRAMONONE Robert Clark MD Work Phone: [facility] 10-08-2024 09:56-0400 Body height 157 cm Sean Sarkar MD Work Phone: [facility] 10-08-2024 09:56-0400 Body height 157.48 cm Sean Sarkar MD Work Phone: [facility] 10-08-2024 09:56-0400 Body mass index (BMI) [Ratio] 27.53 kg/m2 Sean Sarkar MD Work Phone: [facility] 10-08-2024 09:56-0400 Body weight 68 kg Sean Sarkar MD Work Phone: [facility] 10-08-2024 09:56-0400 Body weight 68.04 kg Sean Sarkar MD Work Phone: [facility] 10-08-2024 09:56-0400 Diastolic blood pressure 78 mm[Hg] Sean Sarkar MD Work Phone: [facility] 10-08-2024 09:56-0400 Heart rate 79 /min Sean Sarkar MD Work Phone: [facility] 10-08-2024 09:56-0400 HGHTCHNVIS Sean Sarkar MD Work Phone: [facility] 10-08-2024 09:56-0400 Systolic blood pressure 119 mm[Hg] Sean Sarkar MD Work Phone: [facility] 10-08-2024 09:56-0400 VITALSHARI Sarkar MD Work Phone: [facility] 09-18-2024 00:19-0400 Body temperature 98 [degF] Maritza Ren MD Work Phone: [facility] 09-18-2024 00:19-0400 Diastolic blood pressure 68 mm[Hg] Maritza Ren MD Work Phone: [facility] 09-18-2024 00:19-0400 Heart rate 65 /min Maritza Ren MD Work Phone: [facility] 09-18-2024 00:19-0400 Respiratory rate 18 /min Maritza Ren MD Work Phone: [facility] 09-18-2024 00:19-0400 SaO2% (BldA) [Mass fraction] 99 % Maritza Ren MD Work Phone: [facility] 09-18-2024 00:19-0400 Systolic blood pressure 131 mm[Hg] Maritza Ren MD Work Phone: [facility] 09-17-2024 22:46-0400 Body height 157.48 cm Maritza Ren MD Work Phone: [facility] 09-17-2024 22:46-0400 Body mass index (BMI) [Ratio] 28.3 kg/m2 Maritza Ren MD Work Phone: [facility] 09-17-2024 22:46-0400 Body weight 70.3 kg Maritza Ren MD Work Phone: [facility] 09-12-2024 09:46-0400 Body height 157.48 cm Maritza Ren MD Work Phone: [facility] 09-12-2024 09:46-0400 Body mass index (BMI) [Ratio] 27.6 kg/m2 Maritza Ren MD Work Phone: [facility] 09-12-2024 09:46-0400 Body weight 68.49 kg Maritza Ren MD Work Phone: [facility] 09-12-2024 09:46-0400 Diastolic blood pressure 74 mm[Hg] Maritza Ren MD Work Phone: [facility] 09-12-2024 09:46-0400 Heart rate 79 /min Maritza Ren MD Work Phone: [facility] 09-12-2024 09:46-0400 Respiratory rate 16 /min Maritza Ren MD Work Phone: [facility] 09-12-2024 09:46-0400 Systolic blood pressure 113 mm[Hg] Maritza Ren MD Work Phone: [facility] 04-11-2024 08:58-0500 Body height 157.48 cm Maritza Ren MD Work Phone: [facility] 04-11-2024 08:58-0500 Body mass index (BMI) [Ratio] 28.1 kg/m2 Maritza Ren MD Work Phone: [facility] 04-11-2024 08:58-0500 Body weight 69.85 kg Maritza Ren MD Work Phone: [facility] 12-13-2022 10:34-0400 Body height 157.[address] Malachi Lowry Work Phone: [facility] 12-13-2022 10:34-0400 Body mass index (BMI) [Ratio] 27.6 kg/m2 Dr. Malachi Lowry Work Phone: [facility] 12-13-2022 10:34-0400 Body weight 68.[address] Malachi Lowry Work Phone: [facility] 12-13-2022 10:34-0400 Diastolic blood pressure 70 mm[Hg] Dr. Malachi Lowry Work Phone: [facility] 12-13-2022 10:34-0400 Heart rate 81 /min Dr. Malachi Lowry Work Phone: [facility] 12-13-2022 10:34-0400 Respiratory rate 16 /min Dr. Malachi Lowry Work Phone: [facility] 12-13-2022 10:34-0400 Systolic blood pressure 124 mm[Hg] Dr. Malachi Lowry Work Phone: [facility] 11-02-2022 10:59-0400 Body height 157.[address] Malachi Lowry Work Phone: [facility] 11-02-2022 10:59-0400 Body mass index (BMI) [Ratio] 27.6 kg/m2 Dr. Malachi Lowry Work Phone: [facility] 11-02-2022 10:59-0400 Body weight 68.[address] Malachi Lowry Work Phone: [facility] 11-02-2022 10:59-0400 Diastolic blood pressure 82 mm[Hg] Dr. Malachi Lowry Work Phone: [facility] 11-02-2022 10:59-0400 Heart rate 79 /min Dr. Malachi Lowry Work Phone: [facility] 11-02-2022 10:59-0400 Respiratory rate 18 /min Dr. Malachi Lowry Work Phone: [facility] 11-02-2022 10:59-0400 SaO2% (BldA) [Mass fraction] 99 % Dr. Malachi Lowry Work Phone: [facility] 11-02-2022 10:59-0400 Systolic blood pressure 125 mm[Hg] Dr. Malachi Lowry Work Phone: [facility] 08-16-2022 08:37-0400 Body height 157.[address] Malachi Lowry Work Phone: [facility] 07-27-2022 11:32-0400 Body mass index (BMI) [Ratio] 27.5 kg/m2 Dr. Malachi Lowry Work Phone: [facility] 07-27-2022 11:32-0400 Body weight 68.[address] Malachi Lowry Work Phone: [facility] 07-27-2022 11:32-0400 Diastolic blood pressure 87 mm[Hg] Dr. Malachi Lowry Work Phone: [facility] 07-27-2022 11:32-0400 Heart rate 90 /min Dr. Malachi Lowry Work Phone: [facility] 07-27-2022 11:32-0400 Respiratory rate 16 /min Dr. Malachi Lowry Work Phone: [facility] 07-27-2022 11:32-0400 Systolic blood pressure 136 mm[Hg] Dr. Malachi Lowry Work Phone: [facility] 06-28-2022 15:54-0400 Body temperature 97.6 [degF] Dr. Malachi Lowry Work Phone: [facility] 06-28-2022 15:54-0400 Diastolic blood pressure 66 mm[Hg] Dr. Malachi Lowry Work Phone: [facility] 06-28-2022 15:54-0400 Heart rate 81 /min Dr. Malachi Lowry Work Phone: [facility] 06-28-2022 15:54-0400 Respiratory rate 16 /min Dr. Malachi Lowry Work Phone: [facility] 06-28-2022 15:54-0400 SaO2% (BldA) [Mass fraction] 95 % Dr. Malachi Lowry Work Phone: [facility] 06-28-2022 15:54-0400 Systolic blood pressure 130 mm[Hg] Dr. Malachi Lowry Work Phone: [facility] 06-28-2022 12:15-0400 Inhaled oxygen flow rate 2 L/min Dr. Malachi Lowry Work Phone: [facility] 06-28-2022 07:50-0400 Body height 158.[address] Malachi Lowry Work Phone: [facility] 06-28-2022 07:50-0400 Body mass index (BMI) [Ratio] 27.1 kg/m2 Dr. Malachi Lowry Work Phone: [facility] 06-28-2022 07:50-0400 Body weight 68.[address] Malachi Lowry Work Phone: [facility] 05-26-2022 08:26-0400 Body height 157.[address] Malachi Lowry Work Phone: [facility] 05-26-2022 08:26-0400 Body mass index (BMI) [Ratio] 27.1 kg/m2 Dr. Malachi Lowry Work Phone: [facility] 05-26-2022 08:26-0400 Body temperature 96.6 [degF] Dr. Malachi Lowry Work Phone: [facility] 05-26-2022 08:26-0400 Body weight 67.[address] Malachi Lowry Work Phone: [facility] 05-26-2022 08:26-0400 Diastolic blood pressure 82 mm[Hg] Dr. Malachi Lowry Work Phone: [facility] 05-26-2022 08:26-0400 Heart rate 83 /min Dr. Malachi Lowry Work Phone: [facility] 05-26-2022 08:26-0400 Respiratory rate 17 /min Dr. Malachi Lowry Work Phone: [facility] 05-26-2022 08:26-0400 SaO2% (BldA) [Mass fraction] 100 % Dr. Malachi Lowry Work Phone: [facility] 05-26-2022 08:26-0400 Systolic blood pressure 149 mm[Hg] Dr. Malachi Lowry Work Phone: [facility] 04-26-2022 22:44-0500 Heart rate 69 /min Dr. Malachi Lowry Work Phone: [facility] 04-26-2022 22:44-0500 Respiratory rate 15 /min Dr. Malachi Lowry Work Phone: [facility] 04-26-2022 22:44-0500 SaO2% (BldA) [Mass fraction] 96 % Dr. Malachi Lowry Work Phone: [facility] 04-26-2022 20:58-0500 Diastolic blood pressure 63 mm[Hg] Dr. Malachi Lowry Work Phone: [facility] 04-26-2022 20:58-0500 Systolic blood pressure 134 mm[Hg] Dr. Malachi Lowry Work Phone: [facility] 04-26-2022 20:37-0500 Body height 157.[address] Malachi Lowry Work Phone: [facility] 04-26-2022 20:37-0500 Body mass index (BMI) [Ratio] 27.8 kg/m2 Dr. Malachi Lowry Work Phone: [facility] 04-26-2022 20:37-0500 Body temperature 98.2 [degF] Dr. Malachi Lowry Work Phone: [facility] 04-26-2022 20:37-0500 Body weight [address] Malachi Lowry Work Phone: [facility] 04-07-2022 10:05-0500 Body height 160.[address] Malachi Lowry Work Phone: [facility] 02-06-2022 10:20-0500 Diastolic blood pressure 75 mm[Hg] Dr. Malachi Lowry Work Phone: [facility] 02-06-2022 10:20-0500 Heart rate 77 /min Dr. Malachi Lowry Work Phone: [facility] 02-06-2022 10:20-0500 Respiratory rate 12 /min Dr. Malachi Lowry Work Phone: [facility] 02-06-2022 10:20-0500 SaO2% (BldA) [Mass fraction] 100 % Dr. Malachi Lowry Work Phone: [facility] 02-06-2022 10:20-0500 Systolic blood pressure 157 mm[Hg] Dr. Malachi Lowry Work Phone: [facility] 02-06-2022 08:16-0500 Body height 160.[address] Malachi Lowry Work Phone: [facility] 02-06-2022 08:16-0500 Body mass index (BMI) [Ratio] 25.8 kg/m2 Dr. Malachi Lowry Work Phone: [facility] 02-06-2022 08:16-0500 Body temperature 98.1 [degF] Dr. Malachi Lowry Work Phone: [facility] 02-06-2022 08:16-0500 Body weight 66.[address] Malachi Lowry Work Phone: [facility] 01-18-2022 12:00-0500 Body height 160.[address] Malachi Lowry Work Phone: [facility] Work Phone: 01-18-2022 12:00-0500 Body mass index (BMI) [Ratio] 26.9 kg/m2 Dr. Malachi Lowry Work Phone: [facility] 01-18-2022 12:00-0500 Body weight 68.[address] Malachi Lowry Work Phone: [facility] 01-18-2022 12:00-0500 Diastolic blood pressure 78 mm[Hg] Dr. Malachi Lowry Work Phone: [facility] 01-18-2022 12:00-0500 Heart rate 74 /min Dr. Malachi Lowry Work Phone: [facility] 01-18-2022 12:00-0500 Respiratory rate 16 /min Dr. Malachi Lowry Work Phone: [facility] 01-18-2022 12:00-0500 Systolic blood pressure 165 mm[Hg] Dr. Malachi Lowry Work Phone: [facility] 02-15-2021 07:59-0500 Body height 160.02 cm [facility] Work Phone: 10-06-2019 11:55-0400 BP Diastolic 98 mm[Hg] [facility] [place] 10-06-2019 11:55-0400 BP Systolic 157 mm[Hg] [facility] [place] 10-06-2019 10:49-0400 Pulse (Heart Rate) 85 /min [facility] [place] 10-06-2019 10:49-0400 Pulse Oximetry 100 % [facility] [place] NEGATED: Highlighted [id number] 11:19-0500 Body height 158.75 cm Clare Amy [facility] Work Phone: NEGATED: Highlighted [id number] 11:19-0500 Body height 159 cm Clare Amy SSAS DEVELOPER [facility] Work Phone: NEGATED: Highlighted [id number] 11:19-0500 Body mass index (BMI) [Ratio] 28.54 kg/m2 Clarelizzette Reyes LPN [facility] Work Phone: NEGATED: Highlighted [id number] 11:19-0500 Body weight 71.67 kg Clare Amy SSAS DEVELOPER [facility] Work Phone: NEGATED: Highlighted [id number] 11:19-0500 Body weight 72 kg Clare Amy SSAS DEVELOPER [facility] Work Phone: Encounters Encounter Date Encounter Type Care Provider Facility Start: 01-13-2025 In-person encounter Brian roe PA-C Work Phone: [facility] Work Phone: Start: 01-13-2025 Visit out of hours Brian juan PA-C Work Phone: [facility] Work Phone: Start: 01-12-2025 ambulatory [facility] Start: 01-09-2025 End: 01-09-2025 ambulatory [facility] Start: 01-07-2025 End: 01-07-2025 ambulatory [facility] Start: 12-29-2024 End: 12-29-2024 ambulatory [facility] Start: 12-26-2024 End: 12-26-2024 ambulatory [facility] Start: 12-22-2024 End: 12-23-2024 ambulatory Chalon Milo Facility:[facility] Start: 12-19-2024 End: 12-19-2024 ambulatory [facility] Start: 12-18-2024 End: 12-18-2024 ambulatory CHALON MILO Facility:[facility] Start: 12-15-2024 End: 12-15-2024 ambulatory [facility] Start: 12-12-2024 End: 12-12-2024 ambulatory [facility] Start: 12-10-2024 End: 12-10-2024 ambulatory Chalon Milo Facility:[facility] Start: 12-08-2024 End: 12-08-2024 ambulatory [facility] Start: 12-05-2024 End: 12-05-2024 ambulatory [facility] Start: 12-02-2024 Visit out of hours Brian juan PA-C Work Phone: [place] [employer] Work Phone: Start: 12-02-2024 In-person encounter Brian roe PA-C Work Phone: [facility] Work Phone: Start: 12-01-2024 End: 12-01-2024 ambulatory [facility] Start: 11-28-2024 End: 11-28-2024 ambulatory [facility] Start: 11-24-2024 End: 11-24-2024 ambulatory [facility] Start: 11-17-2024 End: 11-17-2024 ambulatory [facility] Start: 11-06-2024 Visit out of hours Robert cooper MD Work Phone: [place] [employer] Work Phone: Start: 11-06-2024 In-person encounter Robert roth MD Work Phone: [facility] Work Phone: Start: 10-09-2024 Non-patient / Non-visit Gabby PORTILLOC -[facility] Work Phone: Start: 10-09-2024 End: 10-09-2024 ambulatory [facility] Facility:[facility] Start: 10-08-2024 In-person encounter Sean Barney MD Work Phone: [facility] Work Phone: Start: 10-08-2024 Non-patient / Non-visit Dr. Susu VERAS -[facility] Start: 10-08-2024 End: 10-08-2024 ambulatory Maritza Ren MD Work Phone: -Cardiovascular Services Start: 10-08-2024 End: 10-08-2024 Patient encounter procedure Gabby Brown CRITICAL POWER INSTALL TECHNICIAN-C -[facility] Work Phone: Start: 10-08-2024 Visit out of hours Sean lopez MD Work Phone: [facility] Work Phone: Start: 10-08-2024 End: 10-08-2024 [facility] Start: 09-19-2024 Registered Referred Gabby Brown CRITICAL POWER INSTALL TECHNICIAN -C -Cardiovascular Services Work Phone: Start: 09-19-2024 [facility]ulatory [facility] Start: 09-17-2024 End: 09-18-2024 Emergency department patient visit Maritza Ren MD Work Phone: -Emergency Department Work Phone: Start: 09-12-2024 End: 09-12-2024 Patient encounter procedure Gabby Brown CRITICAL POWER INSTALL TECHNICIAN-Mat -[facility] Work Phone: Start: 09-12-2024 End: 09-12-2024 Patient encounter status Gabby Brown CRITICAL POWER INSTALL TECHNICIAN-C [facility] Start: 09-12-2024 End: 09-12-2024 ambulatory Maritza Ren MD Work Phone: -[facility] Start: 08-15-2024 End: 08-15-2024 ambulatory Maritza Ren MD Work Phone: -Physical Therapy Start: 08-15-2024 [...] Start: 08-07-2024 End: 08-07-2024 ambulatory KEARA CHOUDHURY Facility:[facility] Start: 07-11-2024 End: 07-11-[address] 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 Daniel Villafana MD -Outpatient Bone Densitometry Work Phone: Start: 06-04-2024 End: 06-04-2024 ambulatory Daniel Villafana Facility:[facility] Start: 06-02-2024 End: 06-02-2024 ambulatory Maritza Ren MD Work Phone: [facility] Work Phone: Start: 06-02-2024 End: 06-02-[address] Maritza Ren MD -Radiology, [place] Work Phone: Start: 06-02-2024 End: 06-02-2024 ambulatory Maritza Ren Facility:[facility] Start: 04-14-2024 End: 04-14-[address] Maritza Ren MD -Physical Therapy Work Phone: Start: 04-14-[address] Maritza Ren MD -Physical Therapy Work Phone: Start: 04-14-2024 End: 04-14-2024 ambulatory Maritza Ren MD Work Phone: [facility] Work Phone: Start: 04-11-2024 End: 04-11-[address] Daniel Villafana MD -[facility] Work Phone: Start: 04-11-2024 End: 04-11-2024 ambulatory Maritza Ren Facility:[facility] Start: 04-10-2024 End: 04-10-2024 ambulatory KEARA CHOUDHURY Facility:[facility] Start: 04-10-2024 End: 04-10-2024 Unlisted evaluation and [...] 03-24-2024 Encounter for prepro cedural cardiovascular examination [place] [facility] Start: 03-19-2024 End: 03-19-2024 ambulatory MARITZA MILO Facility:[facility] Start: 03-19-2024 End: 03-19-2024 Patient encounter procedure Kyra Youssef OD Work Phone: Optometry Comment on above: 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 Renetta Mary DO -Laboratory Work Phone: Start: 03-12-2024 End: 03-12-2024 ambulatory Renetta Mary Facility:[facility] Start: 02-28-2024 End: 02-28-[address] 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 Al[facility] -[facility] Start: 02-19-2024 End: 02-19-2024 Patient encounter procedure Melodie DURÁN -Cardiovascular Services Work Phone: Start: 02-19-2024 End: 02-19-2024 ambulatory Chalon Milo Facility:[facility] Start: 01-09-2024 Encounter for prepro cedural cardiovascular examination Melodie DURÁN [facility] Start: 01-09-2024 End: 01-09-2024 ambulatory Chalon Milo Facility:[facility] Start: 01-03-2024 End: 01-03-2024 ambulatory CHALON MILO Facility:[facility] Start: 01-03-2024 End: 01-03-2024 Unlisted evaluation and management service Keara Choudhury MD, PhD Work Phone: Ophthalmology Comment on above: 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); Intermediate stage nonexudative age-related macular degeneration of right eye Start: 11-08-2023 End: 11-08-2023 Office outpatient visit 25 minutes Keara Choudhury MD, PhD Work Phone: Ophthalmology Comment on above: 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); Intermediate stage nonexudative age-related macular degeneration of right eye Start: 09-20-2023 End: 09-20-2023 Unlisted evaluation and management service Keara Choudhury MD, PhD Work Phone: Ophthalmology Comment on above: 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); Intermediate stage nonexudative age-related macular degeneration of right eye Start: 08-09-2023 End: 08-09-2023 Unlisted evaluation and [...] right eye Start: 06-21-2023 End: 06-21-2023 ambulatory [facility] Work Phone: Start: 06-21-2023 End: 06-21-2023 Patient encounter procedure [facility] Work Phone: Start: 06-07-2023 End: 06-07-2023 Unlisted [...] early dry stage Start: 05-02-2023 End: 05-02-2023 [facility] Work Phone: Start: 05-02-2023 End: 05-02-2023 Patient encounter procedure [facility] Work Phone: Start: 03-07-2023 End: 03-07-[address] Malachi Lowry Work Phone: [facility] Work Phone: Start: 03-07-2023 End: 03-07-[address] Mal[facility] Low[facility]: Start: 02-23-2023 End: 02-23-[address] Malachi Lowry Work Phone: [facility] Work Phone: Start: 02-23-2023 End: 02-23-[address] Malachi Lowry Work Phone: [facility]-Physical Therapy Work Phone: Start: 02-23-[address] Malachi Lowry Work Phone: [facility] Therapy Work Phone: Start: 12-20-2022 End: 12-20-[address] Malachi Lowry Work Phone: [facility] Work Phone: Start: 12-20-2022 End: 12-20-[address] Malachi Lowry [facility] Work [facility]: Start: 12-13-2022 End: 12-13-[address] Malachi Lowry Work Phone: [facility] Work Phone: Start: 12-13-2022 End: 12-13-[address] Malachi Lowry Work Phone: [facility] Work Phone: Start: 11-20-2022 End: 11-20-[address] Malachi Lowry Work Phone: [facility] Work Phone: Start: 11-20-2022 End: 11-20-[address] Malachi oLwry Work Phone: [facility] Work [facility]: Start: 11-02-2022 End: 11-02-[address] Malachi Lowry Work Phone: [facility] Work Phone: Start: 10-11-2022 End: 10-11-[address] Malachi Lowry [facility] Phone: [facility] Work [facility]: Start: 09-06-2022 End: 09-06-[address] Malachi Lowry Work Phone: [facility] Work Phone: Start: 09-06-2022 End: 09-06-[address] Malachi Lowry [facility] Work [facility]: Start: 08-22-2022 End: 08-22-[address] Malachi Lowry Work Phone: [facility] Work Phone: Start: 08-22-2022 End: 08-22-[address] Malachi Lowry Work Phone: [facility] Start: 08-16-2022 End: 08-16-[address] Malachi Lowry Work Phone: [facility] Work Phone: Start: 08-16-2022 End: 08-16-[address] Malachi Lowry Work Phone: [facility]-Outpatient Bone Densitometry Start: 08-07-2022 End: 08-07-[address] Malachi Lowry [facility] Start: 07-27-2022 End: 07-27-[address] Malachi Lowry Work Phone: [facility] Start: 07-24-2022 End: 07-24-[address] Malachi Lowry Work Phone: [facility], [facility] Office 3rd Flr Start: 07-20-2022 End: 07-20-[address] Malachi Lowry [facility] Start: 07-11-2022 End: 07-11-[address] Malachi Lowry Work Phone: [facility] Start: 07-11-2022 End: 07-11-[address] Malachi Lowry Work Phone: [facility] Work Phone: Start: 07-11-2022 End: 07-11-[address] Malachi Lowry Work Phone: [facility], [facility] Office 3rd Flr Start: 06-28-2022 Non-patient / Non-visit Dr. Mandel Work Phone: [facility] Start: 06-28-2022 End: 06-28-2022 Admission to same day surgery center Dr[facility] Malachi Lowry Work Phone: [facility] Start: 06-28-2022 End: 06-28-[address] Malachi Lowry Work Phone: [facility] Work Phone: Start: 06-26-[address] Malachi Lowry [facility] Start: 06-26-[address] Saman Lowry Work Phone: [facility] Office 3[facility] Flr Start: 06-26-2022 End: 06-26-2022 Non-patient / Non-visit Dr. Malachi Lowry Work Phone: [facility] Start: 06-21-2022 End: 06-21-2022 Patient encounter procedure Kyra Jacob James OD Work Phone: Optometry Comment on above: Macular drusen, bila teral (Primary Dx); Nonexudative age-related macular degeneration, bilateral, early dry stage; Pseudophakia, both eyes; Esotropia, alternating, with noncomitancy; Regular astigmatism of both eyes; Myopia, bilateral Start: 06-20-[address] Malachi Lowry Work Phone: [facility] Therapy Start: 06-15-2022 End: 06-15-[address] Malachi Lowry Work Phone: [facility] Work Phone: Start: 06-15-2022 End: 06-15-[address] Malachi Lowry Work Phone: [facility], y Office 3rd Flr Start: 06-12-2022 End: 06-12-[address] Malachi Lowry Work Phone: [facility]-Outpatient Breast Imaging Start: 06-06-[address] Malachi Lowry Work Phone: [facility]Physical Therapy Start: 05-30-2022 End: 05-30-[address] Malachi Lowry Work Phone: [facility] Work Phone: Start: 05-30-2022 End: 05-30-[address] Malachi Lowry Work Phone: [facility] Start: 05-26-2022 End: 05-26-[address] Malachi Lowry Work Phone: [facility] Start: 05-15-2022 End: 05-15-[address] Malachi Lowry Work Phone: [facility] Work Phone: Start: 05-15-2022 End: 05-15-[address] Malachi Lowry [facility] Phone: [facility] 3rd Flr Start: 04-26-2022 End: 04-26-2022 Emergency department patient visit Dr. Malachi Lowry Work Phone[facility] Start: 04-25-2022 End: 05-02-[address] Malachi Lowry Work Phone: [facility] Work Phone: Start: 04-25-2022 End: 05-02-[address] Malachi Lowry Work Phone: [facility] 3rd Flr Start: 04-25-[address] Malachi Lowry Work Phone: [facility] 3rd Flr Start: 04-18-2022 End: 04-18-[address] Malachi Lowry Work Phone: [facility] Work Phone: Start: 04-18-2022 End: 04-18-[address] Malachi Lowry [facility] Phone[facility] Start: 04-10-2022 End: 04-10-[address] Malachi Lowry Work Phone: [facility] Start: 04-04-2022 End: 04-04-[address] Malachi Lowry Work Phone: [facility] 3[facility] Flr Start: 04-03-2022 End: 04-03-[address] Malachi Lowry Work Phone: [facility] Work Phone: Start: 04-03-2022 End: 04-03-[address] Malachi Lowry Work Phone: [facility]-MRI - [facility] Start: 04-03-2022 End: 04-03-[address] Malachi Lowry Work Phone: [facility] Work Phone: Start: 04-03-2022 End: 04-03-[address] Malachi Lowry Work Phone: [facility]-Laboratory, Phy Office 3rd Flr Start: 03-29-2022 End: 03-29-[address] Malachi Lowry Work Phone: [facility] Work Phone: Start: 03-29-2022 End: 03-29-[address] Malachi Lowry Work Phone: [facility]-Radiology, [facility] Start: 03-28-2022 End: 03-28-[address] Malachi Lowry Work Phone: [facility] Work Phone: Start: 03-28-2022 End: 03-28-[address] Malachi Lowry Work Phone: [facility]-Ultrasound, [facility] Start: 03-28-2022 End: 03-28-[address] Malachi Lowry Work Phone: [facility]-Nuclear Medicine, [facility] Start: 03-27-[address] Malachi Lowry Facility:[id number] Start: 03-08-2022 End: 03-08-[address] Malachi Lowry Work Phone: [facility] Work Phone: Start: 03-08-2022 End: 03-08-[address] Malachi Lowry Work Phone: [facility]-Laboratory, Specimen Start: 02-28-2022 End: 03-04-[address] Malachi Lowry Work Phone: [facility] Work Phone: Start: 02-28-2022 End: 03-04-[address] Malachi Lowry Work Phone: [facility] 3[facility] Flr Start: 02-20-[address] Saman Lowry Work Phone: [facility] 3[facility] Flr Start: 02-16-2022 End: 02-16-[address] Malachi Lowry Work Phone: [facility] Work Phone: Start: 02-16-2022 End: 02-16-[address] Malachi Lowry Work Phone: [facility]-Pulmonary Services/Neurology Start: 02-13-2022 End: 02-13-[address] Malachi Lowry Work Phone: [facility]Laboratory Start: 02-09-2022 Non-patient / Non-visit Dr. Mandel Work Phone: [facility] Start: 02-09-2022 End: 02-09-[address] Malachi Lowry Work Phone: [facility] Work Phone: Start: 02-09-2022 End: 02-09-[address] Malachi Lowry Work Phone: [facility]-Cardiovascul ar Services Start: 02-06-2022 End: 02-06-[address] Malachi Lowry Work Phone: [facility] Work Phone: Start: 02-06-2022 End: 02-06-[address] Malachi Lowry Work Phone: [facility] Start: 02-03-2022 End: 02-03-[address] Malachi Lowry Work Phone: [facility] Work Phone: Start: 02-03-2022 End: 02-03-[address] Malachi Lowry [facility] Phone: [facility] Start: 01-31-2022 End: 01-31-[address] Malachi Lowry Work Phone: [facility] Work Phone: Start: 01-31-2022 End: 01-31-[address] Malachi Lowry Work Phone: [facility], [address] Start: 01-23-2022 End: 01-23-[address] Malachi Lowry Work Phone: [facility] Work Phone: Start: 01-23-2022 End: 01-23-[address] Malachi Lowry [facility] Phone: [facility] Start: 01-18-2022 End: 01-18-[address] Malachi Lowry Work Phone: [facility] Work Phone: Start: 01-18-2022 End: 01-18-[address] Malachi Lowry [facility] Phone: [facility] Start: 01-18-2022 End: 01-18-[address] Malachi Lowry Work Phone: [facility] Start: 12-05-2021 End: 12-05-2021 ambulatory [facility] Work Phone: Start: 12-05-2021 End: 12-05-2021 Patient encounter procedure [facility] Start: 11-21-2021 End: 11-21-2021 Patient encounter procedure [facility] Start: 10-13-[address] Floridalma Grant Facility:[id number] Start: 10-13-2021 Patient encounter procedure Gr allaory Bethanyt PT Work Phone: [facility] Work Phone: Start: 10-06-[address] Floridalma Grant Facility:[id number] Start: 10-06-2021 [email or web address], Provider : Forest Garland, Status: Pen, Time: 10:45 AM Dion Taliaer TILE MECHANIC HELPER Work Phone: [facility] Work Phone: Start: 10-04-2021 Patient encounter procedure Bernard Urbina TILE MECHANIC HELPER Work Phone: [facility] Work Phone: Start: 10-04-[address] Malachi Lawton Facility:[id number] Start: 09-26-2021 Patient encounter procedure Gr allaory Traceyecht PT Work Phone: [facility] Work Phone: Start: 09-26-[address] Malachi Lawton Facility:[id number] Start: 09-21-2021 Patient encounter procedure Gr allashane Bethanyt PT Work Phone: [facility] Work Phone: Start: 09-21-[address] Malachi Lawton Facility:[id number] Start: 06-01-2021 End: 06-01-2021 Patient encounter procedure [facility] Breast [facility] Start: 04-25-2021 End: 04-25-2021 Pt evaluation Floridalma Grant MD Work Phone: [facility] Work Phone: Start: 02-15-2021 Patient encounter procedure [facility]-Outpatient Bone Densitometry Start: 11-19-2020 Patient encounter procedure An maribel Walker TILE MECHANIC HELPER Work Phone: [facility] Work Phone: Start: 11-12-2020 Patient encounter procedure An maribel Walker TILE MECHANIC HELPER Work Phone: [facility] Work Phone: Start: 11-05-2020 Patient encounter procedure Allyson Weller TILE MECHANIC HELPER Work Phone: [facility] Work Phone: Start: 11-01-2020 Patient encounter procedure Allyson Weller TILE MECHANIC HELPER Work Phone: [facility] Work Phone: Start: 11-01-2020 [email or web address], Provider : Merline Weller, Status: Pen, Time: 10:00 AM Vidhi Barker PT Work Phone: [facility] Work Phone: Start: 10-29-2020 Patient encounter procedure De nee Trosterud PT Work Phone: [facility] Work Phone: Start: 10-25-2020 Patient encounter procedure De nee Trosterud PT Work Phone: [facility] Work Phone: Start: 01-19-2020 Patient encounter status [facility] Start: 10-06-2019 End: 10-06-2019 Subsequent hospital visit by physician Abdirahman Toribio Work Phone: [facility] CT Scan Comment on above: Arrived Start: 09-24-2019 End: 09-24-2019 Subsequent hospital visit by physician Abdirahman Toribio Work Phone: [facility] X-Ray Comment on above: Arrived Start: 11-13-2016 End: 02-01-2017 Ambulatory Chyna Hill Facility:[facility] Start: 11-10-2016 End: 11-11-2016 Ambulatory Malachi Lawton Facility:[facility] Start: 10-25-2016 End: 10-26-2016 Ambulatory Demario Chavez Facility:[facility] Procedures Date Procedure Procedure Detail Performing Clinician Start: 01-13-2025 Blood pressure withi n normal parameters - no follow-up required Chance Jorge Mitan PA-C Work Phone: Start: 01-13-2025 BMI documented as ab ove normal parameters - follow-up documented Chance Jorge Mitan PA-C Work Phone: Start: 01-13-2025 Current tobacco non- user cad cap copd pv dm Chance W Mitan PA-C Work Phone: Start: 01-13-2025 Documentation of cur rent medications Chance Jorge Mitan PA-C Work Phone: Start: 01-13-2025 Osteoarthritis symptoms&funcjal status asses Chance Jorge Mitan PA-C Work Phone: Start: 01-13-2025 Pain assessment documented as negative - follow-up not required Chance Jorge Mitan PA-C Work Phone: Start: 12-02-2024 Blood pressure withi n normal parameters - no follow-up required Chance Jorge Mitan PA-C Work Phone: Start: 12-02-2024 BMI outside of lisa l parameters - no follow-up plan/reason not given Brian Jorge Mitan PA-C Work Phone: Start: 12-02-2024 Current tobacco non- user cad cap copd pv dm Chance W Mitan PA-C Work Phone: Start: 12-02-2024 Documentation of cur rent medications Brian Gutierrez PA-C Work Phone: Start: 12-02-2024 Osteoarthritis symptoms&funcjal status asses Brian Patel Mitan PA-C Work Phone: Start: 12-02-2024 Pain assessment documented as positive - follow-up documented Brian Gutierrez PA-C Work Phone: Start: 11-06-2024 Blood pressure withi n normal parameters - no follow-up required Robert Clark MD Work Phone: Start: 11-06-2024 BMI documented as ab ove normal parameters - follow-up documented Robert Clark MD Work Phone: Start: 11-06-2024 Current tobacco non- user cad cap copd pv dm Robert Clark MD Work Phone: Start: 11-06-2024 Osteoarthritis sympt oms and functional status not assessed Robert Clark MD Work Phone: Start: 11-06-2024 Documentation of cur rent medications Robert Clark MD Work Phone: Start: 11-06-2024 Pain assessment documented as positive - follow-up documented Robert Clark MD Work Phone: Start: 10-08-2024 Blood pressure withi n normal parameters - no follow-up required Sean Sarkar MD Work Phone: Start: 10-08-2024 BMI outside of lisa l parameters - no follow-up plan/reason not given Sean Sarkar MD Work Phone: Start: 10-08-2024 Current tobacco non- user cad cap copd pv dm Sean Sarkar MD Work Phone: Start: 10-08-2024 Documentation of cur rent medications Sean Sarkar MD Work Phone: Start: 10-08-2024 Osteoarthritis sympt oms and functional status not assessed Sean Sarkar MD Work Phone: Start: 10-08-2024 Pain assessment documented as negative - follow-up not required Sean Sarkar MD Work Phone: Start: 09-17-2024 CT of head without contrast Maritza Ren MD Work Phone: Start: 08-07-2024 Intravitreal njx pharmacologic agt spx Keara Choudhury MD, PhD Work Phone: Start: 08-07-2024 Computerized ophthal johnson imaging retina Keara Choudhury MD, PhD Work Phone: Start: 07-11-2024 X-ray of cervical spine Maritza Ren MD Work Phone: Start: 06-05-2024 Intravitreal njx pharmacologic agt spx Keara Choudhury MD, PhD Work Phone: Start: 06-05-2024 OCT ANGIOGRAPHY OU ( BOTH EYES) Keara Choudhury MD, PhD Work Phone: Start: 06-05-2024 Computerized ophthal johnson imaging retina Keara Choudhury MD, PhD Work Phone: Start: 06-04-2024 MRI of cervical spine C di Ren MD Work Phone: Start: 06-04-2024 Dual energy X-ray absorptiometry Maritza Ren MD Work Phone: Start: 06-02-2024 Plain x-ray of pelvi s and lower extremity Maritza Ren MD Work Phone: Start: 04-10-2024 Intravitreal njx pharmacologic agt spx Keara Choudhury MD, PhD Work Phone: Start: 04-10-2024 Computerized ophthal johnson imaging retina Keara Choudhury MD, PhD Work Phone: Start: 03-12-2024 Assay of phosphorus inorganic Maritza Ren MD Work Phone: Start: 03-12-2024 Measurement of renal function Maritza Ren MD Work Phone: Comment on above: GFR Calc Start: 02-28-2024 CT of head without contrast Maritza Ren MD Work Phone: Start: 02-21-2024 Intravitreal njx pharmacologic agt spx Keara Choudhury MD, PhD Work Phone: Start: 02-21-2024 Computerized ophthal johnson imaging retina Keara Choudhury MD, PhD Work Phone: Start: 02-19-2024 Cardiovascular stres s test using pharmacologic stress agent Maritza Ren MD Work Phone: Start: 01-03-2024 Intravitreal njx [...] Keara Choudhury MD, PhD Work Phone: Start: 03-07-2024 Intravitreal njx pharmacologic agt spx Keara Choudhury [...] - Td) DTaP/Tdap/Td vaccine (2 - Td) [place], [place] Start: 02-21-2028 Urine microalbumin profile DTaP,Tdap,Td Vaccine (2 - Td or Tdap) [facility] Start: 08-22-2025 End: 01-29-2026 OCT MACULA CIRRUS OU (BOTH EYES) OCT MACULA CIRRUS OU (BOTH EYES) [facility] Routine Exudative age-related macular degeneration of left eye with active choroidal neovascularization (HCC) Expected: 08/22/2025, Expires: 01/29/2026 [facility] Work Phone: Comment on above: Expected: 08/22/2025, Expires: Start: 06-20-2025 End: 11-27-2025 OCT MACULA CIRRUS OU (BOTH EYES) OCT MACULA CIRRUS OU (BOTH EYES) [facility] Routine 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 Expected: 06/20/2025, Expires: 11/27/2025 [facility] Work Phone: Comment on above: Expected: 06/20/2025, Expires: Start: 04-25-2025 End: 10-02-2025 OCT ANGIOGRAPHY OU (BOTH EYES) OCT ANGIOGRAPHY OU (BOTH EYES) [facility] Routine 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 Expected: 04/25/2025, Expires: 10/02/2025 [facility] Comment on above: Expected: 04/25/2025, Expires: Start: 04-25-2025 End: 10-02-2025 OCT MACULA CIRRUS OU (BOTH EYES) OCT MACULA CIRRUS OU (BOTH EYES) [facility] Routine 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 Expected: 04/25/2025, Expires: 10/02/2025 [facility] Work Phone: Comment on above: Expected: 04/25/2025, Expires: Start: 03-25-2025 End: 03-25-2025 Patient encounter procedure 03/25/2025 10:00 AM EST Office Visit [facility] [address] [place] [address] Kyra Youssef II, OD [address] [place] [address] Eye exam/[facility] Comment on above: [facility] Start: 03-07-2025 End: 08-14-2025 OCT MACULA CIRRUS OU (BOTH EYES) OCT MACULA CIRRUS OU (BOTH EYES) [facility] Routine 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 Expected: 03/07/2025, Expires: 08/14/2025 [facility] Work Phone: Comment on above: Expected: 03/07/2025, Expires: Start: 01-17-2025 End: 06-26-2025 OCT MACULA CIRRUS OU (BOTH EYES) OCT MACULA CIRRUS OU (BOTH EYES) [facility] Routine 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 Expected: 01/17/2025, Expires: 06/26/2025 [facility] Work Phone: Comment on above: Expected: 01/17/2025, Expires: Start: 01-13-2025 End: 01-13-2025 [place] Work Phone: Start: 01-13-2025 Radiologic examination pelvis 1/2 views [facility] Work Phone: Start: 12-02-2024 End: 12-02-2024 [employer] Work Phone: Start: 12-02-2024 Radiologic examination pelvis 1/2 views [facility] Work Phone: Start: 11-22-2024 End: 05-01-2025 OCT MACULA CIRRUS OU (BOTH EYES) OCT MACULA CIRRUS OU (BOTH EYES) [facility] Imaging Routine 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 Expected: 11/22/2024, Expires: 05/01/2025 [facility] Work Phone: Comment on above: Expected: 11/22/2024, Expires: Start: 11-06-2024 Radex hip unilateral with pelvis 2-3 views [facility] Work Phone: Start: 10-09-2024 End: 10-09-2024 Patient encounter procedure 10/09/2024 10:00 AM EDT Office Visit [facility] Ophthalmology [address] [place], [place] [id number] Keara Choudhury MD, PhD [address] [place] [address] 9 weeks (around 10/09/2024) for STI vabysmo [...] of right eye Expected: 10/04/2024, Expires: 03/13/2025 [facility] Work Phone: Comment on above: Expected: 10/04/2024, Expires: Start: 09-18-2024 [facility] Start: 08-23-2024 End: 01-30-2025 OCT MACULA CIRRUS OU (BOTH EYES) OCT MACULA CIRRUS OU (BOTH EYES) [facility] Imaging Routine 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 Expected: 08/23/2024, Expires: 01/30/2025 [facility] Work Phone: Comment on above: Expected: 08/23/2024, Expires: Start: 08-07-2024 End: 08-07-2024 Patient encounter procedure 08/07/2024 9:00 AM EDT Office Visit [facility] Ophthalmology [address] [place] [address] Keara Choudhury MD, PhD [address] [place] [address] *9 weeks (around 08/07/2024) for STI vabysmo [...] of right eye Expected: 07/19/2024, Expires: 12/26/2024 [facility] Work Phone: Comment on above: Expected: 07/19/2024, Expires: Start: 06-21-2024 End: 11-28-2024 OCT MACULA CIRRUS OU (BOTH EYES) OCT MACULA CIRRUS OU (BOTH EYES) [facility] Imaging Routine 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 Expected: 06/21/2024, Expires: 11/28/2024 [facility] Work Phone: Comment on above: Expected: 06/21/2024, Expires: Start: 06-05-2024 End: 06-05-2024 Patient encounter procedure 06/05/2024 10:15 AM EDT Office Visit [facility] Ophthalmology [address] [place] [address] Keara Choudhury MD, PhD [address] [place] [address] *DFE/OCT/OCTa both eyes ? vabysmo. auth pending Ophthalmology Comment on above: *DFE/OCT/OCTa both eyes ? vabysmo. auth pending Start: 06-04-2024 MR Cervical spine [facility] Start: 06-04-2024 MRI of cervical spine Spine Cervical (Routine) [facility] Start: 06-04-2024 Dual energy X-ray absorptiometry Dexa Bone Density Study [facility] Start: 06-04-2024 DXA Bone [Mass/Area] Bone density [facility] Start: 05-24-2024 End: 10-31-2024 OCT MACULA CIRRUS OU (BOTH EYES) OCT MACULA CIRRUS OU (BOTH EYES) [facility] Imaging Routine 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 Expected: 05/24/2024, Expires: 10/31/2024 [facility] Work Phone: Comment on above: Expected: 05/24/2024, Expires: Start: 04-10-2024 End: 04-10-2024 Patient encounter procedure Ophthalmolog y Comment on above: STI eylea OS/ OCT *STI eylea OS/ OCT Start: 03-05-2024 Advance Directive Discussion Advance Directive Discussion [facility] Start: 02-21-2024 End: 02-21-2024 Patient encounter procedure 02/21/2024 8:00 AM EST Office Visit [facility] Ophthalmology [address] [place] [address] Keara Choudhury MD, PhD [address] [place] [address] *7 weeks (around 02/21/2024) for STI eylea OS/ OCT. Ophthalmology Comment on above: *7 weeks (around 02/21/2024) for STI eyl ea OS/ OCT. Start: 01-03-2024 End: 01-03-2024 Patient encounter procedure 01/03/2024 8:30 AM EDT Office Visit [facility] Ophthalmology [address] [place] [id number] Keara Choudhury MD, PhD [address] [place] [address] STI eylea OS/ OCT. Ophthalmology Comment on above: STI eylea OS/ OCT. Start: 11-08-2023 End: 11-08-2023 Patient encounter procedure 11/08/2023 1:45 PM EDT Office Visit [facility] Ophthalmology [address] [place] [address] Keara Choudhury MD, PhD [address] [place] [address] Return in about 7 weeks (around 11/08/2023) for DFE/ OCT both eyes ? eylea. Ophthalmology Comment on above: Return in about 7 weeks (around 11/08/2023 ) for DFE/ OCT both eyes ? eylea. Start: 11-04-2023 Covid-19 Vaccine ( season) Covid-19 Vaccine ( season) [facility] Start: 11-04-2023 Covid-19 Vaccine () Covid-19 Vaccine ( season) [facility] Start: 11-04-2023 Influenza [facility] Start: 09-20-2023 End: 09-20-2023 Patient encounter procedure 09/20/2023 1:30 PM EDT Office Visit [facility] Ophthalmology [address] [place] [address] Keara Choudhury MD, PhD [address] [place] [address] STI eylea OS/ OCT Ophthalmology Comment on above: STI eylea OS/ OCT Start: 08-09-2023 End: 08-09-2023 Patient encounter procedure 08/09/2023 3:00 PM EDT Office Visit [facility] Ophthalmology [address] [place] [address] Keara Choudhury MD, PhD [address] [place] [address] STI avastin OS/ OCT Ophthalmology Comment on above: STI avastin OS/ OCT Start: 03-05-2023 Advance Directive Discussion Advance Directive Discussion [facility] Start: 03-05-2023 Behavioral Health Screening Behavioral Health Screening [facility] Start: 03-05-2023 Depression Assessment Depression Assessment [facility] Start: 11-03-2022 Covid-19 Vaccine () Covid-19 Vaccine () [facility] Start: 06-28-2022 Anes intraperitoneal upper abdomen w/laps nos ANESTH SURG UPPER ABDOMEN [facility] Start: 06-28-2022 Laps surg cholecystectomy w/cholangiography LAPARO CHOLECYSTECTOMY/GRAPH [facility] Start: 06-28-2022 Cholangiogram Cholangiogram/ O R,Initial [facility] Start: 06-28-2022 XR Biliary ducts and Gallbladder Views W contrast IV [facility] Start: 06-28-2022 Patient discharge [facility] Start: 04-10-2022 Patient referral [facility] Work Phone: Start: 03-05-2022 ADVANCE DIRECTIVE DISCUSSION ADVANCE DIRECTIVE DISCUSSION [facility] Start: 03-05-2022 DEPRESSION ASSESSMENT DEPRESSION ASSESSMENT [facility] Start: 02-16-2022 [facility] Work Phone: Start: 02-13-2022 [facility] Work Phone: Start: 02-06-2022 Renal biopsy prq trocar/needle RENAL BIOPSY PERQ [facility] Start: 02-06-2022 Catheterization of vein [facility] Start: 02-06-2022 Oxygen therapy [facility] Start: 02-06-2022 Patient discharge [facility] Start: 02-06-2022 Vital signs measurements [facility] Start: 10-13-2021 [email or web address], Provider: Forest Garland, Status: Pen, Time: 11:15 AM PTFUADULT4, Provider: Forest Garland, Status: Pen, Time: 11:15 AM [facility] Work Phone: Start: 10-06-2021 COVID-19 VACCINE (5 - Booster for Moderna series) COVID-19 VACCINE (5 - Booster for Moderna series) [facility] Start: 10-06-2021 [email or web address], Provider: Forest Garland, Status: Pen, Time: 10:45 AM PTFUADULT4, Provider: Forest Garland, Status: Pen, Time: 10:45 AM [facility] Work Phone: Start: 10-04-2021 PTFUADULT4, Provider: Dion Urbina, Status: Pen, Time: 9:15 AM PTFUADULT4, Provider: Dion Urbina, Status: Pen, Time: 9:15 AM [facility] Work Phone: Start: 04-25-2021 End: 04-25-2021 Patient encounter procedure Appointment [facility] Work Phone: Start: 12-03-2020 PTRECHGUIDO, Provider: Vidhi Barker, Status: Pen, Time: 9:15 AM PTRMARJORIE, Provider: Vidhi Barker, Status: Pen, Time: 9:15 AM [facility] Start: 11-26-2020 PTFUADULT4, Provider: Bing Park, Status: Pen, Time: 9:15 AM PTFUADULT4, Provider: Bing Park, Status: Pen, Time: 9:15 AM [facility] Work Phone: Start: 11-19-2020 PTFUADULT4, Provider: Bing Park, Status: Pen, Time: 9:15 AM PTFUADULT4, Provider: Bing Park, Status: Pen, Time: 9:15 AM [facility] Work Phone: Start: 11-12-2020 PTFUADULT4, Provider: Bing Park, Status: Pen, Time: 9:15 AM PTFUADULT4, Provider: Bing Park, Status: Pen, Time: 9:15 AM [facility] Work Phone: Start: 11-05-2020 PTFUADULT4, Provider: Merline Weller, Status: Pen, Time: 9:15 AM PTFUADULT4, Provider: Merline Weller, Status: Pen, Time: 9:15 AM [facility] Work Phone: Start: 11-01-2020 PTFUADULT4, Provider: Merline Weller, Status: Pen, Time: 10:00 AM PTFUADULT4, Provider: Merline Weller, Status: Pen, Time: 10:00 AM [facility] Work Phone: Start: 10-29-2020 PTFUADULT4, Provider: Vidhi Barker, Status: Pen, Time: 10:30 AM PTFUADULT4, Provider: Vidhi Barker, Status: Pen, Time: 10:30 AM [facility] Start: 11-04-2019 Influenza vaccination Flu vaccine (#1) [facility], [place] Start: 08-09-2017 Pneumococcal Vaccine: 50+ (2 of 2 - PPSV23) Pneumococcal Vaccine: 50+ (2 of 2 - PPSV23) [facility] Start: 08-09-2017 Pneumococcal Vaccine: 65+ (2 of 2 - PPSV23 or PCV20) Pneumococcal Vaccine: 65+ (2 of 2 - PPSV23 or PCV20) [facility] Start: 10-14-2014 Shingles Vaccine (2 of 3) Shingles Vaccine (2 of 3) [place], [place] Start: 10-14-2014 Shingrix Vaccine (2 of 3) Shingrix Vaccine (2 of 3) [facility] Start: 2014 BONE DENSITY BONE DENSITY [facility] Start: 2014 Pneumococcal 65+ years Vaccine (1 of 1 - PPSV23) Pneumococcal 65+ years Vaccine (1 of 1 - PPSV23) [place], [place] Start: 2014 Pneumococcal 65+ years Vaccine (2 of 2 - PPSV23) Pneumococcal 65+ years Vaccine (2 of 2 - PPSV23) [place] Start: 2014 PNEUMOCOCCAL: 65+ (1 - PCV) PNEUMOCOCCAL: 65+ (1 - PCV) [facility] Start: 2014 Screening for osteoporosis Bone Density Screening [facility] Start: 2004 Screening for osteoporosis DEXA (modify frequency per FRAX score) [place], [place] Start: 09-15-1999 Screening for malignant neoplasm of breast Breast cancer screen [place], [place] Start: 09-15-1999 Screening for malignant neoplasm of colon Colon cancer screen colonoscopy [place], [place] Start: 09-15-1999 Shingles Vaccine (1 of 2) Shingles Vaccine (1 of 2) [place], [place] Start: 09-15-1999 SHINGRIX VACCINE (1 of 2) SHINGRIX VACCINE (1 of 2) [facility] Start: 1994 COLOGUARD (FIT-DNA) COLOGUARD (FIT-DNA) [facility] Start: 1994 Colonoscopy COLONOSCOPY [facility] Start: 1994 COLORECTAL CANCER SCREENING COLORECTAL CANCER SCREENING [facility] Start: [address] COLONOGRAPHY [facility] Start: 1994 DIABETES SCREEN DIABETES SCREEN [facility] Start: 1994 Diabetes Screening Diabetes Screening [facility] Start: 1994 FECAL OCCULT BLOOD FECAL OCCULT BLOOD [facility] Start: 1994 Lipid panel Lipid Screening [facility] Start: 1994 LIPID SCREEN LIPID SCREEN [facility] Start: 1994 Screening for malignant neoplasm of colon [facility] Start: 1994 SIGMOIDOSCOPY SIGMOIDOSCOPY [facility] Start: 1989 Lipid panel Lipid screen [place], [place] Start: 1989 Mammography MAMMOGRAM [facility] Start: 1989 Screening for malignant neoplasm of breast Mammogram Screening [facility] Start: 1968 DTaP/Tdap/Td vaccine (1 - Tdap) DTaP/Tdap/Td vaccine (1 - Tdap) [place], [place] Start: 1968 Urine microalbumin profile DTAP,TDAP,TD (1 - Tdap) [facility] Start: 09-15-1967 Anxiety Screening Anxiety Screening [facility] Start: 09-15-1967 Depression Screening Depression Screening [facility] Start: 09-15-1967 HEPATITIS C SCREENING HEPATITIS C SCREENING [facility] Start: 09-15-1967 Hepatitis C screening Hepatitis C Screening [facility] Start: 1949 Creatinine measurement Creatinine monitoring [place], [place] Start: 1949 Hepatitis C screening Hepatitis C screen [place], [place] Start: 1949 Potassium monitoring Potassium monitoring [place], [place] Cardiac event recording [facility] Electrocardiographic procedure [facility] Neutrophil cytoplasm ic Ab.classic [Units/volume] in Serum [facility] Work Phone: Nuclear Ab [Presence ] in Serum [facility] Work Phone: P-ANCA measurement [facility] Work Phone: Patient Education [facility] Work Phone: Patient referral [facility] Work Phone: Radionuclide imaging of perfusion of myocardium under exercise stress [facility] Work Phone: Respiratory Panel (PCR) Respiratory Panel (PCR) [facility] Work Phone: Respiratory pathogen s DNA and RNA 12b panel - Unspecified specimen by MONA with probe detection [facility] Work Phone: [facility] Work Phone: [facility] Immunizations Immunization Date Immunization Notes Care Provider Agustin lauren 01-02-2023 influenza virus vaccine, unspecified formulation Keara Choudhury MD, PhD Work Phone: [facility] 02-20-2018 tetanus toxoid, redu cherry diphtheria toxoid, and acellular pertussis vaccine, [facility] Payers Date Payer Category Payer Self-pay [id number] 2022 Unknown [id number] 2015 Medicare (Managed Care) [facility]EL[facility] ..[id number] 2015 Unknown 2015 Medicare [id number] 1949 Unknown [id number] .1.493041.3.579.2. 1068 1949 Unknown [id number] .1.480164.3.579.2. 1068 1949 Unknown [id number] .1.825484.3.579.2. 1068 1949 Unknown [id number] 04.20.830.1.204648.3.579.2. 1068 1949 Unknown [id number] 2.16.840.1.092210.3.579.2. 1069 1949 Unknown [id number] 2.16.840.1.207066.3.579.2. 1068 1949 Unknown [id number] 2.16.840.1.352027.3.579.2. 1242 1949 Unknown [id number] 2.16.840.1.089919.3.579.2. 1242 1949 Unknown [id number] 2.16.840.1.654174.3.579.2. 1242 1949 Unknown [id number] 2.16.840.1.075868.3.579.2. 1242 1949 Unknown [id number] 2.16.840.1.475851.3.579.2. 1242 1949 Unknown [id number] 2.16.840.1.606067.3.579.2. 1242 1949 Unknown [id number] 2.16.840.1.462735.3.579.2. 1242 1949 Unknown [id number] 2.16.840.1.965234.3.579.2. 1242 1949 Unknown [id number] 2.16.840.1.760204.3.579.2. 1242 1949 Unknown [id number] 2.16.840.1.770662.3.579.2. 1242 1949 Unknown [id number] 2.16.840.1.269133.3.579.2. 1242 1949 Unknown [id number] 2.16.840.1.312906.3.579.2. 1242 1949 Unknown [id number] 2.16.840.1.259992.3.579.2. 1242 1949 Unknown [id number] 2.16.840.1.973521.3.579.2. 1242 1949 Unknown [id number] 2.16.840.1.709591.3.579.2. 1243 Unknown [id number] 2.16.840.1.144250.3.579.2. 462 Unknown [id number] 2.16.840.1.808999.3.579.2. 462 Unknown [id number] 2.16.840.1.630469.3.579.2. 462 Unknown [id number] 2.16.840.1.819504.3.579.2. 462 Unknown [id number] 2.840.1.924779.3.579.2. 462 Unknown [id number] 2.840.1.991286.3.579.2. 462 Unknown [id number] 2.840.1.605901.3.579.2. 462 Unknown [id number] 2.840.1.335691.3.579.2. 462 Unknown [id number] 2.840.1.952110.3.579.2. 462 Unknown [id number] 2.840.1.445779.3.579.2. 462 Unknown [id number] 2.16840.1.188961.3.579.2. 462 Unknown [id number] 2.840.1.168744.3.579.2. 462 Unknown [id number] 2.840.1.476025.3.579.2. 462 Unknown [id number] 2.840.1.521470.3.579.2. 462 Unknown [id number] 2.16.840.1.150381.3.579.2. 462 Unknown [id number] 2.16.840.1.981800.3.579.2. 462 Unknown [id number] 2.16.840.1.327437.3.579.2. 462 Unknown [id number] 2.840.1.417173.3.579.2. 462 Unknown [id number] 2.840.1.571877.3.579.2. 462 Unknown [id number] 2.840.1.745900.3.579.2. 462 Unknown [id number] 2.16840.1.335560.3.579.2. 462 Social History Date Type Detail Facility Tobacco smoking status NEIS Unknown if ever smoked [facility] Start: 1950 [facility] Start: 10-06-2019 End: 12-13-2022 Tobacco smoking status NEIS Unknown if ever smoked [facility] Start: 12-02-2018 Non-smoker [facility] Start: 1950 Sex Assigned At Female [facility] Start: 06-21-2022 End: 09-17-2024 Tobacco smoking status NEIS Ex-smoker [facility] Start: 05-02-1962 End: 01-09-1993 History of tobacco use Current smoker [facility] Start: 05-02-1962 End: 01-09-1993 History of tobacco use Cigarette Smoker [facility] Start: 06-21-2022 End: 05-10-2023 Tobacco use and exposure Smokeless tobacco non-user [facility] Start: 06-21-2022 End: 08-07-2024 Alcohol intake Current drinker of alcohol (finding) [facility] Start: 02-13-2019 Alcohol Comment [facility] Start: 06-21-2022 End: 03-19-2024 History of Social function [facility] Start: 06-21-2022 End: 01-13-2025 Tobacco use panel [facility] Adult Depression Screening Assessment 0 [facility] Start: 06-04-2024 End: 06-10-2024 Sex Female (finding) [facility] NEGATED: Highlighted row [facility] Medical Equipment Procedure Code Equipment Code Equipment Origin al Text Equipment Identifier Dates Total cholecystectomy with exploration of common bile duct Plant polysaccharide haemostatic agent, bioabsorbable [id number] [facility] Start: 06-28-2022 Total cholecystectomy with exploration of common bile duct Ligation clip, synthetic polymer, non-bioabsorbable [id number] FDA Start: 06-28-2022 Total cholecystectomy with exploration of common bile duct Ligation clip, synthetic polymer, non-bioabsorbable [id number] FDA Start: 06-28-2022 Goals Date Patient Goal Desired Activity /State Functional Status Date Assessment Result Facility 01-13-2025 Functional Status without [facility] Work Phone: 01-13-2025 dependent [facility] Work Phone: 12-02-2024 Functional Status right [facility] Work Phone: 12-02-2024 dependent [facility] Work Phone: 11-06-2024 Functional Status right [facility] Work Phone: 11-06-2024 dependent [facility] Work Phone: 06-28-2022 Functional status Ambulates [facility] Work Phone: Mental Status Date Assessment Result Facility 09-17-2024 Cognitive function Level Of Cons ciousness Awake;Alert;Appropriate;Follow s Commands [facility] Work Phone: 06-28-2022 Cognitive function Voice/Name [facility] Work Phone: 02-06-2022 Cognitive function Voice/Name [facility] Work Phone: Clinical Notes 04-26-2022 to 12-18-2024 Note Date & Type Note Facility 12-18-2024 Note HNO ID: [id number] Author: KEARA CHOUDHURY MD, PhD Service: ? Author Type: Physician Type: Progress Notes Filed: 12/18/2024 13:43 Note Text: Referred by Dr. Gibson Youssef [...] ok up to 8w Start vabysmo 06/05/24 - ok up to 9 S/p vabysmo #3 left eye 10 w ago with trace IRF Rec vabysmo left eye today Extend to 11-12 weeks for sti Full exam in I have confirmed and edited as necessary [...] all of its relevant components. Keara Choudhury MD [facility] 10-09-2024 Note HNO ID: [id number] Author: KEAAR CHOUDHURY MD, PhD Service: ? Author Type: Physician Type: Progress Notes Filed: 10/09/2024 10:27 Note Text: Referred by Dr. Gibson Youssef [...] ok up to 8w Start vabysmo 06/05/24 - ok up to 9 S/p vabysmo #2 left eye 9w ago with stable IRF Rec vabysmo left eye today Return in 9-10 weeks for full exam I have confirmed [...] all of its relevant components. Keara Choudhury MD [facility] 09-17-2024 Radiology Diagnostic study note [facility] Imaging Services [address] [place] [address] [id number] Brain/Head without Contrast MR#: [id number] Acct: [id number] Name: IVONNE MAYA Rep #: [id number] : 1950 F 74 From: [facility] sindy Epstein MD PCP: Dr. Maritza Ren MD Status: REG ER Study:Brain/Head without Contrast Date of Exa m: 09/17/24 Exam# [id number] Ordering Dr: Phuong Penaloza DO PROCEDURE: BRAIN/HEAD WITHOUT CONTRAST 09/17/2024 REASON FOR EXAM: HEADACHE TECHNIQUE: BRAIN/HEAD WITHOUT CONTRAST Coronal and Sagittal reconstruction series were provided. One or more dose reduction techniques were used (e.g., Automated exposure control, adjustment of the mA and/or kV according to patient size, use of iterative reconstruction technique. RADIATION DOSE SUMMARY: CTDlvol: 44.99 mGy DLP: 796.11 mGycm COMPARISON: 02/28/2024 FINDINGS: No acute intracranial hemorrhage, extra-axial collection, mass effect or evidence of acute infarct. Mild age-appropriate generalized brain parenchymal volume loss. 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 Absent [place] ocular lenses. Minimal scattered mucosal thickening in the paranasal sinuses with small amount of dependent fluid in the right sphenoid sinus. No mastoid effusions. Intact skull base and calvarium. Probable small benign notochordal remnant in the dorsal clivus. CT/Brain/Head without Contrast IMPRESSION: 1. No acute intracranial abnormality. 2. Mild volume loss and moderate chronic small-vessel ischemic changes. Reading Location: [id number] CC: Dr. Maritza Ren MD; DO Keegan Carrasquillo Rate Engineer: Signed [facility] 08-25-2024 Discharge summary Note Date/Time August 25, 2024 11:45am [facility] Physical Therapy [facility] [address] [place] [address] / REHABILITATION SERVICES DISCHARGE SUMMARY MR#: [id number] Acct: [id number] Name: IVONNE MAYA Rep #: [id number] : 1950 73 From: Jaclyn Arreaga Referring Dr.: LEEANNA Romero Status: REG R Insurance: [employer] [...] by the physician. Thank you! Jaclyn Trevino, GARTHT Balance/Gait/Functional tests Balance/Special Test Scores Lower Extremity Functional Score: 24 <Electronically signed by Jaclyn Trevino DPT> 08/25/24 1145 CC: Dr. Maritza Ren MD; LEEANNA Romero ~ ELR Signed [facility] Work Phone: 1(875) 712-181206-23-2025 Discharge summary [facility] Physical Therapy [facility] [address] [place] [address] / REHABILITATION SERVICES DISCHARGE SUMMARY MR#: [id number] Acct: [id number] Name: IVONNE MAYA Rep #: [id number] : 1950 73 From: Jaclyn LIANG T Referring Dr.: LEEANNA Romero Status: REG RCR Insurance: ANTHEM [...] Score: 24 08/25/24 1145 CC: Dr. Maritza Ren MD; LEEANNA Romero ~ ELR Signed [facility]06-05-2025 NoteDate of Procedure 08/07/2024 [place] Protocol Safety Checklist A moment of CARE [...] Post Procedure Medications None. Home Going Prescription None.[facility]06-05-20[facility] Instructions* Patient Instructions* Keara Choudhury MD, [...] than dabbing lightly with a tissue An xjxn-tlo-kdtotdm pain reliever (i.e. Tylenol) can be used [...] If it is after hours please call [phone] which will give instructions on how to reach the eye doctor cleaning validation consultant documented in this encounterJoint Township District Memorial Hospital06-05-2025 NoteDate of Procedure 08/07/2024. Senior Environmental Technician Information Uph[employer]ered Goods Crafter: [email or web address]. OCT Macula Interpretation Right Eye Normal foveal contour. Findings include Drusen. Left Eye Normal foveal contour. Findings include Intraretinal fluid, Drusen, RPE Irregularity.[id number] NoteHNO ID: [id number] Author: KEARA CHOUDHURY MD, PhD Service: ? [...] all of its relevant components. Keara Choudhury [facility]06-05-2025 History of Present illness Narrative* Keara Choudhury [...] components. Keara Choudhury MD documented in this encounterJoint Township District Memorial Hospital05-09-2025 Evaluation note* Diagnosis Onset Date Resolution Status Admit Date Cervical myelopathy acute July 112024 8:36am Osteopenia determined by x-ray acute July 11, 2024 8:36am Right hip pain acute July 11 025 8:36am Spinal stenosis of lumbar re gion with neurogenic claudication acute July 11, 2024 8:36am [facility] Work Phone: 1(759) 975-533005-09-2025 Evaluation note* Diagnosis Onset Date Resolution Status Admit Date Cervical myelopathy acute July 112024 8:36am Osteopenia determined by x-ray acute July 11, 2024 8:36am Right hip pain acute July 11 025 8:36am Spinal stenosis of lumbar re gion with neurogenic claudication acute July 11, 2024 8:36am Cerebellar infarct acute September 022024 9:28am Dyspnea on exertion acute September 12, 2024 9:28am Preop cardiovascular exam acute September 12, 2024 9:28am Essential hypertension chronic Ju ly 2024 9:28am [facility] Work Phone: [phone]) 905-170705-09-2025 Evaluation note* Diagnosis Onset Date Resolution Status Admit Date Cervical myelopathy acute July 112024 8:36am Osteopenia determined by x-ray acute July 11, 2024 8:36am Right hip pain acute July 11, 025 8:36am Spinal stenosis of lumbar re gion with neurogenic claudication acute July 11, 2024 8:36am Cerebellar infarct acute September 022024 9:28am Essential hypertension chronic Ju ly 2024 9:28am [facility] Work Phone: 1(298) 379-856304-22-2025 Discharge summary Author Varsha Dhaliwal [facility] Note Date/Time June 24, 2024 8:2 3am [facility] Physical Therapy [facility] [address] [place] [address] / REHABILITATION SERVICES DISCHARGE SUMMARY MR#: [id number] Acct: [id number] Name: IVONNE MAYA Rep #: [id number] : 1950 73 From: Varsha Dhaliwal MP T Referring Dr.: Dr. Maritza Ren MD Status: REG RCR Insurance: ANTHEM MEDICARE [...] comments regardingtheir Physical therapy will appear below: DC PT At this point I will be discontinuing this patient from physical therapy. I would be happy to see this patient again in the future if found appropriate by the physician. Thank you! BLAIRE Gallagher Balance/Gait/Functional tests Balance/Special Test Scores Dizziness Score: 32 <Electronically signed by Varsha Dhaliwal MPT> 06/24/24 0823 CC: Dr. Maritza Ren MD ~ Signed [facility] Work Phone: 1(461) 443-266104-22-2025 Discharge summary [facility] Physical Therapy [facility] [address] [place] [address] / REHABILITATION SERVICES DISCHARGE SUMMARY MR#: [id number] Acct: [id number] Name: IVONNE MAYA Rep #: [id number] : 1950 73 From: Varsha Dhaliwal MP T Referring Dr.: Dr. Maritza Ren MD Status: REG R Insurance: ANTHEM MEDICARE [...] Score: 32 06/24/24 0823 CC: Dr. Maritza Ren MD ~ Signed [facility]04-03-2025 NoteDate of Procedure 06/05/2024 [place] Protocol Safety Checklist Sign In: A moment [...] for, Post-procedure follow up management communicated. No specimens.[facility]04-03-2025 Instructions* Patient Instructions* Keara Choudhury MD, [...] than dabbing lightly with a tissue An vejf-wum-mqdhxph pain reliever (i.e. Tylenol) can be used [...] If it is after hours please call [phone] which will give instructions on how to reach the eye doctor cleaning validation consultant documented in this encounterJoint Township District Memorial Hospital04-03-2025 NoteDate of Procedure 06/05/2024. Senior Environmental Technician Information U[employer] Crafter: vince. Interpretation Left Eye Findings include Negative for CNV. Notes Unable [id number] NoteDate of Procedure 06/05/2024. Senior Environmental Technician Information U[employer] Crafter: vince. OCT Macula Interpretation Right Eye Normal foveal contour. Findings include Drusen. Left Eye Normal foveal contour. Findings include Intraretinal fluid, IS/OS junction, Atrophy.[id number] NoteHNO ID: [id number] Author: KEARA CHOUDHURY MD, PhD Service: ? [...] all of its relevant components. Keara Choudhury [facility]04-03-2025 History of Present illness Narrative* Keara Choudhury [...] components. Keara Choudhury MD documented in this encounterJoint Township District Memorial Hospital04-01-2025 Radiology Diagnostic study note [facility] Imaging Services [address] [place] [address] [id number] HIP, UNI W/ Pelvis 2-3 Views MR#: [id number] Acct: [id number] Name: IVONNE MAYA Rep #: [id number] 25 : 1950 F 73 From: Rohit Pichardo MD PCP: Dr. Maritza Ren MD Status: REG CL I Study:HIP, UNI W/ Pelvis 2-3 Views Date of Ex am: 06/02/24 Exam# [id number] Ordering Dr: Malou Ren MD PROCEDURE: HIP, UNI W/ PELVIS 2-3 [...] tendinosis of the gluteal tendons. Reading Location: [id number] CC: Dr. Maritza Ren MD ~ Rate Engineer: Signed [facility]02-07-2025 Evaluation note* Diagnosis Onset Date Resolution Status Admit Date Cervical myelopathy acute Febru jose a2024 8:53am History of lumbar fusion acute April 11, 2024 8:53am Lumbar scoliosis acute April 11, 2024 8:53am Osteopenia determined by x-ray acute April 11, 2024 8:53am Spinal stenosis of lumbar region with neurogenic claudication acute April 11 8:53am [facility] Work Phone: 1([phone]) 988-454502-06-2025 NoteDate of Procedure 04/10/2024 [place] Protocol Safety Checklist Sign In: A moment [...] for, Post-procedure follow up management communicated. No specimens.[facility]02-06-2025 Instructions* Patient Instructions* Keara Choudhury MD, [...] than dabbing lightly with a tissue An pnbq-dae-fiadqgw pain reliever (i.e. Tylenol) can be used [...] If it is after hours please call [phone] which will give instructions on how to reach the eye doctor cleaning validation consultant documented in this encounterJoint Township District Memorial Hospital02-06-2025 NoteDate of Procedure 04/10/2024. Senior Environmental Technician Information U[employer] Crafter: OCT Macula Interpretation Right Eye Normal foveal contour. Findings include Drusen. Left Eye Abnormal foveal contour. Findings include Intraretinal fluid, PED, Drusen, IS/OS junction, RPE Irregularity.[id number] NoteHNO ID: [id number] Author: KEARA CHOUDHURY MD, PhD Service: ? [...] all of its relevant components. Keara Choudhury [facility]02-06-2025 History of Present illness Narrative* Keara Choudhury [...] others. I have seen and examined Ivonne J Willowoksana. I have discussed the case and the management of this patient's care with the Resident/Fellow, if applicable. I also have reviewed and agree with the assessment and plan as stated above and agree withall of its relevant components. Keara Choudhury MD documented in this encounterJoint Township District Memorial Hospital01-24-2025 Telephone encounter Note * Telephone Encounter - Daphney King - 03/28/2024 11:24 AM ESTSummary: RE: Medical condition Ivonne phoned stating she forgot to tell you that she had a cerebellum stroke approximately 3-4 weeks ago. [facility]01-24-2025 Miscellaneous Notes* Telephone Encounter - Daphney King - 03/28/2024 11:24 AM ESTSummary: RE: Medical condition Ivonne phoned stating she forgot to tell you that she had a cerebellum stroke approximately 3-4 weeks ago. documented in this encounterJoint Township District Memorial Hospital01-15-2025 Instructions* Patient Instructions* Kyra Youssef II, [...] of its relevant components. documented in this encounterJoint Township District Memorial Hospital01-15-2025 NoteHNO ID: [id number] Author: KYRA YOUSSEF II, OD Service: ? Author Type: BASE BRANDER Type: Progress Notes Filed: 03/19/2024 13:32 Note [...] and agree with all of its relevant components.[facility]01-15-2025 History of Present illness Narrative* Kyra Youssef [...] of its relevant components. documented in this encounterJoint Township District Memorial Hospital12-19-2024 NoteDate of Procedure 02/21/2024 [place] Protocol Safety Checklist Sign In: A moment [...] for, Post-procedure follow up management communicated. No specimens.[facility]12-19-2024 Instructions* Patient Instructions* Keara Choudhury MD, [...] than dabbing lightly with a tissue An bqve-cjr-kvbzzow pain reliever (i.e. Tylenol) can be used [...] If it is after hours please call [phone] which will give instructions on how to reach the eye doctor cleaning validation consultant documented in this encounterJoint Township District Memorial Hospital12-19-2024 NoteDate of Procedure 02/21/2024. Senior Environmental Technician Information Uph[employer]ered Good[employer] Crafter: [email or web address]. OCT Macula Interpretation Right Eye Normal foveal contour. Findings include Drusen. Left Eye Normal foveal contour. Findings include Intraretinal fluid, Drusen, IS/OS junction, Atrophy.[id number] NoteHNO ID: [id number] Author: KEARA CHOUDHURY MD, PhD Service: ? [...] all of its relevant components. Keara Choudhury [facility]12-19-2024 History of Present illness Narrative* Keara Choudhury [...] components. Keara Choudhury MD documented in this encounterJoint Township District [facility] Hospital10-31-2024 NoteDate of Procedure 01/03/2024 [place] Protocol Safety Checklist Sign In: A moment [...] for, Post-procedure follow up management communicated. No specimens.[facility]10-31-2024 Instructions* Patient Instructions* Keara Choudhury MD, [...] than dabbing lightly with a tissue An dpws-dvn-qbjlnuf pain reliever (i.e. Tylenol) can be used [...] If it is after hours please call [phone] which will give instructions on how to reach the eye doctor cleaning validation consultant documented in this encounterJoint Township District Memorial Hospital10-31-2024 NoteDate of Procedure 01/03/2024. Interpretation Right Eye Normal foveal contour. Findings include Drusen. Left Eye Normal foveal contour. Findings include Intraretinal fluid, Drusen; Negative for Cystoid macular edema, Subretinal fluid.[id number] NoteHNO ID: [id number] Author: KEARA CHOUDHURY MD, PhD Service: ? [...] all of its relevant components. Keara Choudhury [facility]10-31-2024 History of Present illness Narrative* Keara Choudhury [...] components. Keara Choudhury MD documented in this encounterJoint Township District [facility] Hospital09-05-2024 NoteDate of Procedure 11/08/2023 [place] Protocol Safety Checklist Sign In: A moment [...] for, Post-procedure follow up management communicated. No specimens.[facility]09-05-2024 Instructions* Patient Instructions* Keara Choudhury MD, [...] than dabbing lightly with a tissue An kfgz-xnw-sgfewqr pain reliever (i.e. Tylenol) can be used [...] If it is after hours please call [phone] which will give instructions on how to reach the eye doctor cleaning validation consultant documented in this encounterJoint Township District Memorial Hospital09-05-2024 NoteDate of Procedure 11/08/2023. Senior Environmental Technician Information Uph[employer] Good[employer] Crafter: [email or web address]. Interpretation Right Eye Normal foveal contour. Findings include Drusen. Left Eye Normal foveal contour. Findings include PED, Drusen, IS/OS junction; Negative for Intraretinal fluid, Cystoid macular edema, Subretinal fluid.[facility] 11-08-2023 History of Present illness Narrative* Keara Choudhury [...] components. Keara Choudhury MD documented in this encounterJoint Township District [facility] Hospital07-18-2024 NoteDate of Procedure 09/20/2023 [place] Protocol Safety Checklist Sign In: A moment [...] for, Post-procedure follow up management communicated. No specimens.[facility]07-18-2024 Instructions* Patient Instructions* Keara Choudhury MD, [...] than dabbing lightly with a tissue An anfj-erd-utaajlu pain reliever (i.e. Tylenol) can be used [...] If it is after hours please call [phone] which will give instructions on how to reach the eye doctor cleaning validation consultant documented in this encounterJoint Township District Memorial Hospital07-18-2024 NoteDate of Procedure 09/20/2023. Senior Environmental Technician Information Uph[employer] Crafter: [email or web address]. Interpretation Right Eye Normal foveal contour. Findings include Drusen. Left Eye Abnormal foveal contour. Findings include PED, Drusen; Negative for Cystoid macular edema, Subretinal fluid.[id number] History of Present illness Narrative* Keara Choudhury [...] components. Keara Choudhury MD documented in this encounterJoint Township District [facility]06-06-2024 NoteDate of Procedure 08/09/2023 [place] Protocol Safety Checklist Sign In: A moment [...] for, Post-procedure follow up management communicated. No specimens.[facility]06-06-2024 Instructions* Patient Instructions* Keara Choudhury MD, [...] than dabbing lightly with a tissue An ldvz-tse-dajcrdo pain reliever (i.e. Tylenol) can be used [...] If it is after hours please call [phone] which will give instructions on how to reach the eye doctor cleaning validation consultant documented in this encounterJoint Township District [facility] Hospital06-06-2024 NoteDate of Procedure 08/09/2023. Interpretation Right Eye Normal foveal contour. Findings include Drusen; Negative for Intraretinal fluid, Subretinal fluid. Left Eye Normal foveal contour. Findings include Intraretinal fluid, PED, Drusen; Negative for Subretinal fluid. Interval Change Right Eye Stable. Left Eye Better.[id number] History of Present illness Narrative* Keara Choudhury [...] components. Keara Choudhury MD documented in this encounterJoint Township District [facility]05-02-2024 NoteDate of Procedure 07/05/2023 [place] Protocol Safety Checklist Sign In: A moment [...] for, Post-procedure follow up management communicated. No specimens.[facility]05-02-2024 Instructions* Patient Instructions* Keara Choudhury MD, [...] than dabbing lightly with a tissue An tfal-sum-qgdhvln pain reliever (i.e. Tylenol) can be used [...] If it is after hours please call [phone] which will give instructions on how to reach the eye doctor cleaning validation consultant documented in this encounterJoint Township District [facility] Hospital05-02-2024 NoteDate of Procedure 07/05/2023. Senior Environmental Technician Information Uphol[employer]ered Good[employer] Crafter: [email or web address]. Interpretation Right Eye Normal foveal contour. Findings include Drusen. Left Eye Normal foveal contour. Findings include IS/OS junction; Negative for Intraretinal fluid, Subretinal fluid.[id number] History of Present illness Narrative* Keara Choudhury [...] components. Keara Choudhury MD documented in this encounterJoint Township District [facility] Hospital04-04-2024 Instructions* Patient Instructions* Keara Choudhury MD, [...] than dabbing lightly with a tissue An tkce-gqt-yktuvmu pain reliever (i.e. Tylenol) can be used [...] If it is after hours please call [phone] which will give instructions on how to reach the eye doctor cleaning validation consultant documented in this encounterJoint Township District [facility] Hospital04-04-2024 History of Present illness Narrative* Keara [...] components. Keara Choudhury MD documented in this encounterJoint Township District [facility]03-07-2024 Instructions* Patient Instructions* Keara Choudhury MD, [...] than dabbing lightly with a tissue An ntcd-fus-szimzxi pain reliever (i.e. Tylenol) can be used [...] If it is after hours please call [phone] which will give instructions on how to reach the eye doctor cleaning validation consultant documented in this encounterJoint Township District [facility] Hospital03-07-2024 History of Present illness Narrative* Keara [...] components. Keara Choudhury MD documented in this encounterJoint Township District [facility] Hospital03-04-2024 Instructions* Patient Instructions* Jeanna Youssef, OD - 05/07/2023 3:13 PM EST ASSESSMENT/PLAN: 1. Exudative age-related macular degeneration of left eye, unspecified stage (HCC) - ICD9: 362.52, ICD10: H35.3220 (primary diagnosis) Referral to retina for further evaluation. 2. Nonexudative age-related macular degeneration, right eye, early dry stage - ICD9: 362.51, ICD10:H35.3111 Continue to monitor. Return as directed documented in this encounterJoint Township District Memorial Hospital03-04-2024 History of Present illness Narrative* Jeanna Youssef, OD - 05/07/2023 3:11 PM EST ASSESSMENT/PLAN: 1. Exudative age-related macular degeneration of left eye, unspecified stage (HCC) - ICD9: 362.52, ICD10: H35.3220 (primary diagnosis) Referral to retina for further evaluation. 2. Nonexudative age-related macular degeneration, right eye, early dry stage - ICD9: 362.51, ICD10:H35.3111 Continue to monitor. Return as directed Jeanna Youssef OD documented in this encounterJoint Township District [facility] Hospital01-18-2024 Discharge summary Author Nadia Campos [facility] March 22, 2023 8:29am Note Date/Time March 22, 2023 8 :30am [facility] Physical Therapy [facility] [address] [place] [address] / REHABILITATION SERVICES DISCHARGE SUMMARY MR#: [id number] Acct: [id number] Name: IVONNE MAYA Rep #: [id number] : 1950 72 From: Nadai Campos PT, Cert. MDT Referring Dr.: OUT OF TOWN DOCTOR Status: REG RCR Insurance: ANTH MEDICARE SENIOR [...] Low Back Score: 13 <Electronically signed by Anibal Carey PT. T> 03/22/23 0829 CC: JUAN J ACEVEDO; Dr. Malachi Lowry MD ~ SHAYY Signed [facility] Work Phone: 1(673) 544-714904-26-[address] Huerta [facility] June 28, 2022 11:31am Note Date/Time June 28, 2022 8:3 7am [facility] Medical Records Department [address] [place] [address] Instructions for Home/Discharge Instructions 06/28/22 0836 MR#: [id number] Acct: [id number] Name: IVONNE MAYA Rep #:[id number] 15 : 1950 71 From: Herb Huerta MD PCP: Dr. Malachi Lowry MD Status:REG [facility] Discharge Instructions Procedure General Surgery Diet Discharge [...] Up With: Herb Huerta MD When: Call [phone] to make an appointment to be seen [...] CC: Dr. Malachi Lowry MD ~ Signed [facility] Work Phone: 1(522) 338-927004-26-2023 History and physical note Author Dr. Huerta [facility] June 28, 2022 8:36am Note Date/Time June 28, 2022 8:3 6am [facility] Medical Records Department [address] [place] [address] History & Physical Exam 06/28/22 0835 MR#: [id number] Acct: [id number] Name: IVONNE MAYA Rep #:[id number] 14 : 1950 71 From: Herb Huerta MD PCP: Dr. Malachi Lowry MD Status:[facility] Location: [place] [address] History and Physical Date of Admission: 06/28/22 [...] is being treated by Dr. Renetta Mary field sales consultant.? An attempt was made to taper her [...] acute distress Nutritional Appearance: average body habitus [facility] Head: normal to inspection Eyes General: [...] I did have the opportunity contact Dr. Renetta Mary to discuss the patient's acute interstitial [...] Lowry MD; Dr. Herb Huerta MD~ Signed [facility] Work Phone: 1(337) 334-849604-26-2023 Procedure [facility] 06-21-2022 Instructions* Patient Instructions* Kyra Youssef II, OD - 06/21/2022 5:02 PM EDT Assessment and Plan H35.363 Macular drusen, bilateral (primary encounter diagnosis) H35.3131 Nonexudative age-related macular degeneration, bilateral, early dry stage Comment: AREDS 2 supplementation stopped by field sales consultant but still taking multivitamin. Warnings regarding the [...] Kyra Youssef II, OD documented in this encounterJoint Township District [facility]04-19-2023 History of Present illness Narrative* Kyra Youssef II, OD - 06/21/2022 4:59 PM EDT Assessment and Plan H35.363 Macular drusen, bilateral (primary encounter diagnosis) H35.3131 Nonexudative age-related macular degeneration, bilateral, early dry stage Comment: AREDS 2 supplementation stopped by field sales consultant but still taking multivitamin. Warnings regarding the [...] Kyra Youssef II, OD documented in this encounterJoint Township District [facility] Hospital02-22-[address] Shaw [facility] April 26, 2022 10:26pm Note Date/Time April 26, 2022 10:16pm [facility] Medical Records Department [address] [place] [address] Emergency Department Summary 04/26/22 MR#: [id number] Acct: [id number] Name: IVONNE MAYA Rep #:[id number] : [...] feel tight. Pain is worse with movement. [facility] Medical History Deep vein thrombophlebitis of right [...] year ago by a doctor at the [facility]. I did consider offering her narcotic pain [...] management provider, and her spine surgeonat the [facility] for possible outpatient MRI and further treatment [...] Follow-up with your spine surgeon at the [facility] as soon as possible. You have spinal [...] your Primary Care Provider. Call [facility] ([phone]) or report to the closest Emergency Room. Call 911 if necessary. 04/26/222225 <Electronically signed by Keara Shaw MD> Cosigner Signature (if applicable): CC: Dr. Bret Lo MD; Dr. Malachi Lowry MD ~ Signed [facility] Work Phone: Evaluation noteThere may be information available, but it has not been provided by the sender.[facility] Work Phone: Evaluation noteNo assessment information available [facility] Work Phone: Evaluation note* Diagnosis Onset Date Resolution Status Dyspnea acute Essential hypertension [facility] Work Phone: Evaluation note* Diagnosis Onset Date Resolution Status Essential hypertension chron [facility] Work Phone: Evaluation note* Diagnosis Onset Date Resolution Status Essential hypertension chron ic T9 vertebral fracture acute [facility] Work Phone: Evaluation note* Diagnosis Onset Date Resolution Status T9 vertebral fracture acute [facility] Work Phone: Evaluation note* Diagnosis Onset Date Resolution Status T9 vertebral fracture acute Cholelithiasis with chronic cholecystitis [facility] Work Phone: Evaluation note* Diagnosis Macular drusen, bilateral- Primary Nonexudative age-related macular degeneration, bilateral, early dry stage Pseudophakia, both eyes Lens replaced by other means Esotropia, alternating, with noncomitancy Alternating esotropia with other noncomitancies Regular astigmatism of both eyes Regular astigmatism Myopia, bilateral Myopia [facility] Diagnosis Onset Date Resolution Status T9 vertebral fracture acute Cholelithiasis with chronic cholecystitis chronic Cholelithiasis with chronic cholecystitis [facility] Work Phone: Evaluation note* Diagnosis Onset Date Resolution Status Cholelithiasis with chronic cholecystitis chronic Cholelithiasis with chronic cholecystitis chronic Chest pain acute Essential hypertension [facility] Work Phone: Evaluation note* Diagnosis Onset Date Resolution Status Chest pain acute Essential hypertension chron ic Chest pain acute Essential hypertension [facility] Work Phone: Evaluation note* Diagnosis Onset Date Resolution Status Chest pain acute Essential hypertension chron ic Fatigue acute Essential hypertension [facility] Work Phone: Evaluation note* Diagnosis Onset Date Resolution Status Fatigue acute Essential hypertension [facility] Work Phone: Evaluation note* Diagnosis Exudative age-related macular degeneration of left eye, unspecified stage (HCC)- Primary Nonexudative age-related macular degeneration, right eye, early dry stage [facility] [...] [facility] Diagnosis Exudative age-related macular degeneration [...] of right eye [facility] Diagnosis 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 MAYA [...] of motion/joint mobility, strength and transfers. [facility] Work Phone: History of Present illness Narrative* Pt confirmed via and Full Name. * Verbally reviewed HEP at start of session with good compliance so far since evaluation. Pt able to initiate some ther-ex this date with good tolerance but some minimal catching in Left hip with last 30 sec on rec bike. Improved after hip flexor and ADD stretches this date. [facility] Work Phone: History of Present illness NarrativePatient [...] all new additions to her program without c/o.[facility] Work Phone: History of Present illness NarrativePatient identified by name and date of . Patient presented with pelvic malalignment that responded well to MET. She was able to progress with kegels and reviewed progression of HEP. Reviewed sleeping positions, she demonstrated good understanding. She presented with tension in gluts that responded well to STW.[facility] Work Phone: History of Present illness NarrativePatient identified by name and date of . Patient presented with pelvic malalignment that responded well to STW. She demonstrated good understanding with kegels and review of HEP. She presented with tension in hip flexors, gluts, and IT band with STW.[facility] Work Phone: History of Present illness NarrativePatient identified by name and date of . Patient presented with pelvic malalignment that responded well to MET. She was able to progress with kegels and reviewed progression of HEP. Reviewed sleeping positions, she demonstrated good understanding. She presented with tension in gluts that responded well to STW. [facility] History of Present [...] of motion/joint mobility, strength and transfers. [facility] Work Phone: History of Present illness Narrative* Patient identity confirmed today with name/. the patient motions to the R area as the presentarea of sx;. * Clinical Presentation: Stable and/or uncomplicated characteristics. * Level of Complexity: low * Problem List: activity limitations, ADLs/IADLs/self care skills, decreased functional level, decreased knowledge of HEP, decreased knowledge of precautions, gait/locomotion, pain, range of motion/joint mobility, strength and transfers. [facility] Work Phone: History of Present illness Narrative* Patient motivated to progress. Added ex's for core strengthening/stability with good tolerance and response. Patient voices compliance with current HEP. * Response to treatment: decreased pain, improved flexibility, improved posture and improved knowledge and understanding of condition. * Patient was able to complete today's treatment with some difficulty. [facility] Work Phone: History of Present illness Narrative* Patient identity confirmed today with name/. the patient seems to be walking more upright today;see goals; good ADL and strength gains; added to HEP and given handout. * Response to treatment: decreased pain, improved flexibility, improved posture and improved knowledge and understanding of condition. * Patient was able to complete today's treatment with some difficulty. [facility] Work Phone: Hospital Discharge instructionsAmbulatory Orders* Pain Management Location: None Selected [facility] Work Phone: Hospital Discharge instructions Additional Instructions Follow-up with your spine surgeon at the [facility] as soon as possible. You have spinal stenosis at multiple levels in your lumbar spine. Tell your pain management doctor that you did receive 1 dose of morphine in the emergency department.[facility] Work Phone: Hospital Discharge instructionsAdditional Instructions Your head CT revealed a little bit of fluid within your sphenoid sinus which could be that pressure sensation that you are feeling but at this time there is no signs of acute infection or bleed or mass. Continue all of your home medications as directed by your doctor and return to the ER should you have any further [facility] Work Phone: Instructions* Instruction Description Start Date Patient advised to follow-up with Primary Care Physician for BMI management. [facility] Work Phone: Reason for referral (narrative)No reason for referral information availableWFirelands [facility] Work Phone: Reason for visit Narrative* Initial Evaluation . SI Joint Pain and Left Hip Pain. * Referred by: Abdirahman Toribio. [facility] Work Phone: reason for visit Narrative* Initial Evaluation . SI Joint Pain and Left Hip Pain. * Referred by: Abdirahman Toribio. [facility] Work Phone: Reason for visit Narrative* Initial Evaluation . lumbar stenosis. * Referred by: Laura Grant MD [facility] Work Phone: Reason for visit Narrative* Initial Evaluation . lumbar stenosis. * Referred by: Laura Grant MD [facility] Work Phone: Summary Purpose Family History Relationship Condition Age at Onset Recorded Date/T santiago mother Cerebrovascular accident (CVA) 72 Hypertension Unknown father Malignant neoplasm Unknown Alcoholism Unknown brother Malignant neoplasm Unknown Atrial fibrillation Unknown Family Member Condition Full Brother Cancer Full Brother Atrial-Fibrillation Full Brother Heart disease Father Alcoholism Father Mother Atrial-Fibrillation Mother Osteoporosis Mother High blood pressure Mother Heart disease Mother Mother Brain Aneurysm Paternal Grandmother Cancer Father Cancer Family Member Condition Full Brother Cancer Full Brother Atrial-Fibrillation Full Brother Heart disease Father Alcoholism Father Mother Atrial-Fibrillation Mother Osteoporosis Mother High blood pressure Mother Heart disease Mother Mother Brain Aneurysm Paternal Grandmother Cancer Father Cancer Family Member Condition Full Brother Cancer Full Brother Atrial-Fibrillation Full Brother Heart disease Father Alcoholism Father Mother Atrial-Fibrillation Mother Osteoporosis Mother High blood pressure Mother Heart disease Mother Mother Brain Aneurysm Paternal Grandmother Cancer Father Cancer Family Member Condition Full Brother Cancer Full Brother Atrial-Fibrillation Full Brother Heart disease Father Alcoholism Father Mother Atrial-Fibrillation Mother Osteoporosis Mother High blood pressure Mother Heart disease Mother Mother Brain Aneurysm Paternal Grandmother Cancer Father Cancer Advance Directives Documents on File Type Date Recorded 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 Expl anation Advance Directives and Living Will Power of Equipment Hire Manager Advance Directive Response Recorded Date/ Time Living Will Yes December 02, 2018 12:20pm Power of Equipment Hire Manager Yes November 12:20pm Advance Directive Response Recorded Date/ Time Living Will Yes December 02, 2018 11:20am Power of Equipment Hire Manager Yes November 11:20am Advance Directive Response Recorded Date/ Time Living Will Yes April 07 10:05am Power of Equipment Hire Manager Yes April 07, 2022 10:05am Advance Directive Response Recorded Date/ Time Name of Medical Power of Equipment Hire Manager KRISTIN MAYA April 26, 2022 8:40pm Living Will Yes April 26 8:40pm Power of Equipment Hire Manager Yes April 26, 2022 8:40pm Advance Directive Response Recorded Date/ Time Name of Medical Power of Equipment Hire Manager KRISTIN MAYA April 26, 2022 9:40pm Living Will Yes February 22nd, 2 023 9:40pm Power of Equipment Hire Manager Yes April 26, 2022 9:40pm Advance Directive Response Recorded Date/ Time Name of Medical Power of Equipment Hire Manager KRISTIN MAYA April 26, 2022 9:40pm Living Will Yes June 21, 2022 1:10pm Power of Equipment Hire Manager Yes June 21 1:10pm Advance Directive Response Recorded Date/ Time Name of Medical Power of Equipment Hire Manager KRISTIN MAYA April 26, 2022 9:40pm Name of Medical Power of Equipment Hire Manager - KRISTIN June 21, 2022 1:10pm Living Will Yes June 21, 2022 1:10pm Power of Equipment Hire Manager Yes June 21 1:10pm Advance Directive Response Recorded Date/ Time Living Will Yes June 21, 2022 1:10pm Power of Equipment Hire Manager Yes June 21 1:10pm Name of Medical Power of Equipment Hire Manager LOLITA- KRISTIN June 21, 2022 1:10pm Advance Directive Response Recorded Date/ Time Living Will Yes June 21, 2022 1:10pm Power of Equipment Hire Manager Yes June 21 1:10pm Advance Directive Response Recorded Date/ Time Living Will Yes June 21, 2022 12:10pm Power of Equipment Hire Manager Yes June 21 12:10pm Advance Directive Response Recorded Date/ Time Do you have a Healthcare Power of Equipment Hire Manager? Yes September 17, 2024 11:34pm Discharge Instructions * Instructions* Lianne Steele RN - 10/06/2019 If you have any questions or problems following your test, please call: [phone] (7AM - 4PM) or after 4PM call [phone] and ask for the angiography radiologist cleaning validation consultant Learning About a Hip Bursa Injection What is a hip bursa injection? A bursa is a small sac of fluid that cushions an area between tendons and bones. The bursa on the outer side of the hip bone is called the trochanteric (say BAMF-sfa-DBEC-ik) bursa. Sometimes it can become swollen and [...] Where can you learn more? Go to [email or web address] and sign in to your [employer] account. Enter J909 in the Search Health Information box to learn more about Learning About a Hip Bursa Injection. If you do not have an account, please click on the Sign Up Now link. Current as of: May 05, 2019 Content Version: 12.5 [employer]. Care instructions adapted under license by [employer]. If you have questions about a medical condition or this instruction, always ask your healthcare professional. [employer] disclaims any warranty or liability for your use of this information. documented in this encounter History of Present Illness * Lianne Steele RN - 10/06/2019 10:00 AM EDT Patient arrived to CT department from home for left SI joint injection. Dr. Chung in to discuss procedure with patient and informed consent obtained. Patient assisted to CT table and place prone. night monitor on. 40 mg Kenalog and 1.5 [...] hypertension Chief Complaint DUE ON OR AROUND CHARLES E LISTED Gall Bladder SCREENING DUE ON [...] LISTED Chief Complaint DUE ON OR AROUND CHARLES E LISTED RENAL Chief Complaint Admit Date PREOP, WALTERS February 19, 2024 7:03am PREOP, WALTERS February 19, 2024 5:52pm DIZZINESS February 28, 2024 5:44pm LUMBAR SPINE April 11, 2024 8 :53am VERTIGO, TO FAX April 14, 2024 10:16am hip pain- RIGHT June 02, 2024 11: 11am OSTEO June 04, 2024 10:4 6am Reason for Visit Admit Date Cervical myelopathy April 11, 2024 8 :53am History of lumbar fusion April 11 8:53am Lumbar scoliosis April 11, 2024 8 :53am Osteopenia determined by x-ray April 11, 2024 8:53am Spinal stenosis of lumbar re gion with neurogenic claudication April 11, 2024 8:53am Chief Complaint Admit Date LUMBAR SPINE April 11, 2024 8 :53am VERTIGO,DR WILSON FAX April 14, 2024 10:16am hip pain- [...] 11, 2024 9:10am RT HIP, RX HERE Zuleika 13th, 2025 12:0 0pm 1 Y FU September 12, [...] Essential hypertension September 12, 2024 9 :28am Chief Complaint Admit Date hip pain- RIGHT June 02, 2024 11: 11am OSTEO June 04, 2024 10:4 6am CERVICAL SPINE July 11, 2024 8:36am room 1 pt can leave after x-ray July 11, 2024 9:10am RT HIP, RX HERE August 15, 2024 12:0 0pm 1 Y FU September 12, 2024 9:28 am head September 17, 2024 10:4 5pm Reason for Visit Admit Date Cervical myelopathy July 11, 2024 8:36am Osteopenia determined by x-ray July 11, 2024 8:36am Right hip pain July 11, 2024 8:36am Spinal stenosis of lumbar region with ne urogenic claudication July 11, 2024 8:36am Cerebellar infarct September 12, 2024 9:28 am Essential hypertension September 12, 2024 9 :28am Chief Complaint Admit Date CERVICAL SPINE July 11, 2024 8:36am room 1 pt can leave after x-ray July 11, 2024 9:10am RT HIP, RX HERE August 15, 2024 12:0 0pm 1 Y FU September 12, 2024 9:28 am head September 17, 2024 10:4 5pm CVA- DEMETRA September 19, 2024 1:27 pm SOB, TIA/CVA October 08, 2024 12: 52pm Amb Documentation October 09, 2024 10: 41am Additional Source Comments INFORMATION SOURCE (unrecogn ized section and content) DATE CREATED AUTHOR 08/28/2017 [facility] DATE CREATED AUTHOR AUTHOR'S ORGANIZ ATION 10/08/2019 [facility] DATE CREATED AUTHOR AUTHOR'S ORGANIZ ATION 10/14/2021 [employer] DATE CREATED AUTHOR AUTHOR'S ORGANIZ ATION 03/29/2022 [facility] DATE CREATED AUTHOR AUTHOR'S ORGANIZ ATION 12/20/2024 [facility] DATE CREATED AUTHOR AUTHOR'S ORGANIZ ATION 12/31/2024 [facility] DATE CREATED AUTHOR AUTHOR'S ORGANIZ ATION 01/13/2025 [facility] Reason for Visit (unrecogniz ed section and content) right hip post Right total h ip arthroplasty using a direct anterior approach on 10/20/2024, Postop - subsequent visit Reason Comments Macular Degeneration Follow Up Nonexudat hannah Right Eye, Exudative Left Eye Specialty Diagnoses / Procedures Referred By Contact Referred To Contact Ophthalmology / OPHTHALMOLOGY Diagnoses Exudative age-related macular degeneration, left eye, with active choroidal neovascularization STI eylea OS/ OCT Procedures AFLIBERCEPT INJECTION Eylea 2mg left eye every 4 wks for one year Keara Choudhury MD, PhD [address] [place] [address] Keara Choudhury MD, PhD [address] [place] [address] Referral ID Status Reason Start Date Expiration Date V isits Requested Visits Authorized [id number] Authorized 09/20/2023 09/18/2024 12 12 Reason Comments Exudative Macular Degeneration Follow Up Left eye Specialty Diagnoses / Procedures Referred By Contac t Referred To Contact Ophthalmology / OPHTHALMOLOGY Diagnoses Exudative age-related macular degeneration, left eye, with active choroidal neovascularization STI CASSIE Procedures [place] BEVACIZUMAB INJECTION AVASTIN 1.25 MG LEFT EYE EVERY 4 WKS FOR ONE YEAR Keara Choudhury MD, PhD [address] [place] [address] Keara Choudhury MD, PhD [address] [place] [address] Referral ID Status Reason Start Date Expiration Date V isits Requested Visits Authorized [id number] Authorized 06/07/2023 03/04/2024 99 99 Reason For [...] for one year Keara Choudhury MD, PhD [address] [place] [address] Phone: tel: Keara Choudhury MD, PhD [address] [place] [address] Phone: tel: fax: Referral ID Status Reason Start Date Expiration Date V isits Requested Visits Authorized [id number] Authorized 06/05/2024 05/05/2025 12 12 Reason Comments [...] one year Keara Choudhury MD, PhD [address] [place] [address] Phone: tel:[phone] Keara Choudhury MD, PhD [address] [place] [address] Phone: tel:[phone] fax: Goals (unrecognized section and content) Goals may [...] may be documented in an alternate section No Information AvailableGoals may be documented in an alternate section No Information Available No Information Available No Information Available Care Teams (unrecognized sec tion and content) [...] Grant MD Attending Provider, Referring Provider Active Litigation Partner Relationship Specialty Start Date End Date Malachi Lowry Bhanu E VIANEY [place] [id number] PCP - General Family Medicine 02/17/20 Team [...] Provider, Referrin g Provider Active Gabby Brown CRITICAL POWER INSTALL TECHNICIAN, CRITICAL POWER INSTALL TECHNICIAN-C Attending Provider Active Team Status: Inactive Member Role Status Dates Dr. Malachi Lowry MD Primary Care Provider Active Dr. Floridalma Grant MD Attending Provider, Referring Provider Active Team Status: Inactive Member Role Status Dates Dr. Malachi Lowry MD Primary Care Provider Active Gabby Brown CRITICAL POWER INSTALL TECHNICIAN, CRITICAL POWER INSTALL TECHNICIAN-C Attending Provider, Referring P rovider Active Team Status: Inactive Member Role Status Dates Dr. Malachi Lowry MD Primary Care Prov ider, Attending Provider, Referring Provider Active Dr. Renetta Mary DO Other Provider Active Team Status: Active Member Role Status Dates Dr. Malachi Lawton MD Family Provider Active Maritza Ren MD Primary Care Provider Active Team Status: Inactive Member Role Status Dates Dr. Renetta Mary DO Attending Provider, Referring P rovider Active Maritza Ren MD Primary Care Provider Active Team Status: Active Member Role Status Dates Dr. Malachi Lowry MD Primary Care Provider Active CURTIS ARITA Attending Provider Active Team Status: Inactive Member Role Status Dates Dr. Malachi Lowry MD Primary Care Provider Active CURTIS ARITA Attending Provider Active Team Status: Inactive Member Role Status Dates Maritza Ren MD Primary Care Provider Active Dr. Renetta Mary DO Attending Provider, Eloisa salinas Active Litigation Partner Relationship Specialty Start Date End Date Maritza Ren MD [address] [place] [address] PCP - General Internal Medicine 05/07/23 Litigation Partner Relationship Specialty Start Date End Date Maritza Ren MD [address] [facility] [address] [place] [address] PCP - General Internal Medicine 05/07/23 Litigation Partner Relationship Specialty Start Date End Date Maritza Ren MD [address] [facility] [address] [place] [address] PCP - General Internal Medicine 05/07/23 Team Status: Inactive Member Role Status Dates Maritza Ren MD Primary Care Provider Active Dr. Renetta Mary DO Attending Provider Active Litigation Partner Relationship Specialty Start Date End Date Maritza Ren MD [address] [facility] [address] [place] [address] PCP - General Internal Medicine 05/07/23 Litigation Partner Relationship Specialty Start Date End Date Maritza Ren MD [address] [facility] [address] [place] [address] PCP - General Internal Medicine 05/07/23 Litigation Partner Relationship Specialty Start Date End Date Maritza Ren MD [address] [facility] [address] [place] [address] PCP - General Internal Medicine 05/07/23 Litigation Partner Relationship Specialty Start Date End Date Maritza Ren MD [address] [place], [place] [id number] PCP - General Internal Medicine 05/07/23 Litigation Partner Relationship Specialty Start Date End Date Maritza Ren MD [address] [place], [place] [address] PCP - General Internal Medicine 05/07/23 Litigation Partner Relationship Specialty Start Date End Date Maritza Ren MD [address] [place], [place] [id number] PCP - General Internal Medicine 05/07/23 Litigation Partner Relationship Specialty Start Date End Date Maritza Ren MD [address] [place], [place] [id number] PCP - General Internal Medicine 05/07/23 Team Status: Active Member Role Status Dates Maritza Ren MD Primary Care Provider Active Team Status: Inactive Member Role Status Dates Maritza Ren MD Primary Care Provider Active St art: February 19, 2024 End: February 19, 2024 Melodie DURÁN, PA Attending Provider Active Start: February 19, 2024 End: February 19, 2024 Melodie DURÁN, PA Referring Provider Active Start: February 19, 2024 End: February 19, 2024 Team Status: Active Member Role Status Dates Maritza Ren MD Primary Care Provider Active St art: February 19, 2024 Melodie DURÁN, PA Referring Provider Active Start: February 19, 2024 Melodie DURÁN, PA Other Provider Active Start: February 19, 2024 Dr. Que Mccrary MD Attending Provider Active S tart: February 19, 2024 Team Status: Inactive Member Role Status Dates Maritza Ren MD Primary Care Provider Active St art: February 28, 2024 End: February 28, 2024 Maritza Ren MD Attending Provider Active Start : February 28, 2024 End: February 28, 2024 Maritza Ren MD Referring Provider Active Start : February 28, 2024 End: February 28, 2024 Team Status: Inactive Member Role Status Laila Ren MD Primary Care Provider Active St art: March 12, 2024 End: March 12, 2024 Dr. Renetta Mary DO Attending Provider Active Start: March 12, 2024 End: March 12, 2024 Dr. Renetta Mary DO Referring Provider Active Start: March 12, 2024 End: March 12, 2024 Team Status: Inactive Member Role Status Laila Ren MD Primary Care Provider Active St art: April 11, 2024 End: April 11, 2024 Maritza Ren MD Referring Provider Active Start : April 11, 2024 End: April 11, 2024 Dr. Daniel Villafana MD Attending Provider Active Start: April 11, 2024 End: April 11, 2024 Team Status: Active Member Role Status Laila Ren MD Primary Care Provider Active St art: April 14, 2024 Maritza Ren MD Attending Provider Active Start : April 14, 2024 Maritza Ren MD Referring Provider Active Start : April 14, 2024 Team Status: Inactive Member Role Status Laila Ren MD Primary Care Provider Active St art: June 02, 2024 End: June 02, 2024 Maritza Ren MD Attending Provider Active Start : June 02, 2024 End: June 02, 2024 Maritza Ren MD Referring Provider Active Start : June 02, 2024 End: June 02, 2024 Team Status: Active Member Role Status Laila Ren MD Primary Care Provider Active St art: June 04, 2024 Dr. Daniel Villafana MD Attending Provider Active Start: June 04, 2024 Dr. Daniel Villafana MD Referring Provider Active Start: June 04, 2024 Litigation Partner Relationship Specialty Start Date End Date Maritza Ren MD [address] [place] [address] PCP - General Internal Medicine 05/07/23 Team Status: Inactive Member Role Status Laila Ren MD Primary Care Provider Active St art: June 04, 2024 End: June 04, 2024 Dr. Daniel Villafana MD Attending Provider Active Start: June 04, 2024 End: June 04, 2024 Dr. Daniel Villafana MD Referring Provider Active Start: June 04, 2024 End: June 04, 2024 Team Status: Inactive Member Role Status Laila Ren MD Primary Care Provider Active St art: April 14, 2024 End: April 14, 2024 Maritza Ren MD Attending Provider Active Start : April 14, 2024 End: April 14, 2024 Maritza Ren MD Referring Provider Active Start : April 14, 2024 End: April 14, 2024 Litigation Partner Relationship Specialty Start Date End Date Martiza Ren MD [address] [place] [address] PCP - General Internal Medicine 05/07/23 Team Status: Active Member Role/Relationship Status Laila Ren MD Primary Care Provider Active Team Status: Inactive Member Role/Relationship Status Lalia Ren MD Primary Care Provider Active St art: June 02, 2024 End: June 02, 2024 Maritza Ren MD Attending Provider Active Start : June 02, 2024 End: June 02, 2024 Maritza Ren MD Referring Provider Active Start : June 02, 2024 End: June 02, 2024 Team Status: Inactive Member Role/Relationship Status Laila eRn MD Primary Care Provider Active St art: June 04, 2024 End: June 04, 2024 Dr. Daniel Villafana MD Attending Provider Active Start: June 04, 2024 End: June 04, 2024 Dr. Daniel Villafana MD Referring Provider Active Start: June 04, 2024 End: June 04, 2024 Team Status: Inactive Member Role/Relationship Status Laila Ren MD Primary Care Provider Active St art: July 11, 2024 End: July 11, 2024 Maritza Ren MD Referring Provider Active Start : July 11, 2024 End: July 11, 2024 Dr. Daniel Villafana MD Attending Provider Active Start: July 11, 2024 End: July 11, 2024 Team Status: Inactive Member Role/Relationship Status Laila Ren MD Primary Care Provider Active St art: July 11, 2024 End: July 11, 2024 Dr. Que Mccrary MD Attending Provider Active S tart: July 11, 2024 End: July 11, 2024 Team Status: Inactive Member Role/Relationship Status Laila Ren MD Primary Care Provider Active St art: August 15, 2024 End: August 15, 2024 LEEANNA Romero Attending Provider Active Start : August 15, 2024 End: August 15, 2024 LEEANNA Romero Referring Provider Active Start : August 15, 2024 End: August 15, 2024 Team Status: Inactive Member Role/Relationship Status Laila Ren MD Primary Care Provider Active St art: September 12, 2024 End: September 12, 2024 Maritza Ren MD Referring Provider Active Start : September 12, 2024 End: September 12, 2024 Gabby Brown NP, CRITICAL POWER INSTALL TECHNICIAN-C Attending Provider Active Start: September 12, 2024 End: September 12, 2024 Team Status: Inactive Member Role/Relationship Status Laila Ren MD Primary Care Provider Active St art: September 17, 2024 End: September 18, 2024 Dr. Tony Penaloza DO Emergency Provider Active Start: September 17, 2024 End: September 18, 2024 Team Status: Inactive Member Role/Relationship Status Laila Ren MD Primary Care Provider Active St art: July 11, 2024 End: July 11, 2024 Maritza Ren MD Referring Provider Active Start : July 11, 2024 End: July 11, 2024 Dr. Daniel Villafana MD Attending Provider Active Start: July 11, 2024 End: July 11, 2024 Team Status: Inactive Member Role/Relationship Status Laila Ren MD Primary Care Provider Active St art: July 11, 2024 End: July 11, 2024 Dr. Que Mccrary MD Attending Provider Active S tart: July 11, 2024 End: July 11, 2024 Team Status: Inactive Member Role/Relationship Status Laila Ren MD Primary Care Provider Active St art: August 15, 2024 End: August 15, 2024 LEEANNA Romero Attending Provider Active Start : August 15, 2024 End: August 15, 2024 LEEANNA Romero Referring Provider Active Start : August 15, 2024 End: August 15, 2024 Team Status: Inactive Member Role/Relationship Status Laila Ren MD Primary Care Provider Active St art: September 12, 2024 End: September 12, 2024 Maritza Ren MD Referring Provider Active Start : September 12, 2024 End: September 12, 2024 Gabby Brown CRITICAL POWER INSTALL TECHNICIAN, CRITICAL POWER INSTALL TECHNICIAN-C Attending Provider Active Start: September 12, 2024 End: September 12, 2024 Team Status: Inactive Member Role/Relationship Status Laila Ren MD Primary Care Provider Active St art: September 17, 2024 End: September 18, 2024 Dr. Tony Penaloza DO Attending Provider Active Start: September 17, 2024 End: September 18, 2024 Dr. Tony Penaloza DO Emergency Provider Active Start: September 17, 2024 End: September 18, 2024 Team Status: Active Member Role/Relationship Status Laila Ren MD Primary Care Provider Active St art: September 19, 2024 Gabby Brown CRITICAL POWER INSTALL TECHNICIAN, CRITICAL POWER INSTALL TECHNICIAN-C Attending Provider Active Start: September 19, 2024 Gabby Brown CRITICAL POWER INSTALL TECHNICIAN, CRITICAL POWER INSTALL TECHNICIAN-C Referring Provider Active Start: September 19, 2024 Team Status: Inactive Member Role/Relationship Status Laila Ren MD Primary Care Provider Active St art: October 08, 2024 End: October 08, 2024 Gabby Brown CRITICAL POWER INSTALL TECHNICIAN, CRITICAL POWER INSTALL TECHNICIAN-C Attending Provider Active Start: October 08, 2024 End: October 08, 2024 Gabby Brown CRITICAL POWER INSTALL TECHNICIAN, CRITICAL POWER INSTALL TECHNICIAN-C Referring Provider Active Start: October 08, 2024 End: October 08, 2024 Team Status: Active Member Role/Relationship Status Laila Ren MD Primary Care Provider Active St art: October 08, 2024 Dr. Que Mccrary MD Attending Provider Active S tart: October 08, 2024 Team Status: Active Member Role/Relationship Status Laila Ren MD Primary Care Provider Active St art: October 09, 2024 Gabby Brown NP, CRITICAL POWER INSTALL TECHNICIAN-C Attending Provider Active Start: October 09, 2024 Source Comments (unrecognize d section and content) In the event this informatio n is protected by the Federal Confidentiality of Alcohol and Drug Abuse Patient Records regulations: The Federal rules restrict any use of the information to criminally investigate or prosecute any alcohol or drug abuse patient.[facility] the event this information is protected by the Federal Confidentiality of Alcohol and Drug Abuse Patient Records regulations: The Federal rules restrict any use of the information to criminally investigate or prosecute any alcohol or drug abuse patient.[facility] the event this information is protected by the Federal Confidentiality of Alcohol and Drug Abuse Patient Records regulations: The Federal rules restrict any use of the information to criminally investigate or prosecute any alcohol or drug abuse patient.[facility] the event this information is protected by the Federal Confidentiality of Alcohol and Drug Abuse Patient Records regulations: The Federal rules restrict any use of the information to criminally investigate or prosecute any alcohol or drug abuse patient.[facility] the event this information is protected by the Federal Confidentiality of Alcohol and Drug Abuse Patient Records regulations: The Federal rules restrict any use of the information to criminally investigate or prosecute any alcohol or drug abuse patient.[facility] the event this information is protected by the Federal Confidentiality of Alcohol and Drug Abuse Patient Records regulations: The Federal rules restrict any use of the information to criminally investigate or prosecute any alcohol or drug abuse patient.[facility] the event this information is protected by the Federal Confidentiality of Alcohol and Drug Abuse Patient Records regulations: The Federal rules restrict any use of the information to criminally investigate or prosecute any alcohol or drug abuse patient.[facility] the event this information is protected by the Federal Confidentiality of Alcohol and Drug Abuse Patient Records regulations: The Federal rules restrict any use of the information to criminally investigate or prosecute any alcohol or drug abuse patient.[facility] the event this information is protected by the Federal Confidentiality of Alcohol and Drug Abuse Patient Records regulations: The Federal rules restrict any use of the information to criminally investigate or prosecute any alcohol or drug abuse patient.[facility] the event this information is protected by the Federal Confidentiality of Alcohol and Drug Abuse Patient Records regulations: The Federal rules restrict any use of the information to criminally investigate or prosecute any alcohol or drug abuse patient.[facility] the event this information is protected by the Federal Confidentiality of Alcohol and Drug Abuse Patient Records regulations: The Federal rules restrict any use of the information to criminally investigate or prosecute any alcohol or drug abuse patient.[facility] the event this information is protected by the Federal Confidentiality of Alcohol and Drug Abuse Patient Records regulations: The Federal rules restrict any use of the information to criminally investigate or prosecute any alcohol or drug abuse patient.[facility] the event this information is protected by the Federal Confidentiality of Alcohol and Drug Abuse Patient Records regulations: The Federal rules restrict any use of the information to criminally investigate or prosecute any alcohol or drug abuse patient.[facility] the event this information is protected by the Federal Confidentiality of Alcohol and Drug Abuse Patient Records regulations: The Federal rules restrict any use of the information to criminally investigate or prosecute any alcohol or drug abuse patient.[facility] the event this information is protected by the Federal Confidentiality of Alcohol and Drug Abuse Patient Records regulations: The Federal rules restrict any use of the information to criminally investigate or prosecute any alcohol or drug abuse patient.[facility] Active Administered Medications - up to [...] 1 Drop, BOTH EYES, DIRECTED, Starting on 05/07/23 at 1500, Until Tu05/08/23 at 0259, Administer for dilation Given 05/07/2023 3:00 PM EST 1 Drop Inactive Administered Medications - up to 3 most recent administrations Medication Order MAR Action Action Date Dose Rate Site bevacizumab (Milton's) 1.25 mg intravitreal syringe (AVASTIN) 1.25 mg, ONCE, 1 dose, Starting on Sophia 05/10/23 at 1148, Until Sophia 05/10/23 at 1148 Given 05/10/2023 11:48 AM EST 1.25 mg Le ft Inactive Administered Medications - up to 3 most recent administrations Medication Order MAR Action Action Date Dose Rate Site bevacizumab (Milton's) 1.25 mg intravitreal syringe (AVASTIN) 1.25 mg, ONCE, 1 dose, Starting on Sophia 06/07/23 at 1620, Until Sophia 06/07/23 at 1620 [...] BE BASED ON THE PRIMARY CLINICAL RECORDS. [employer] provides no warranty or guarantee of the accuracy or completeness of information in this document.
== END | disposition home or self-care (01) ==
LOC: OPMRI 12:38
PROVIDERS: PCP Family Medicine; Referring Provider Family Medicine; Visit Provider Family Medicine
DX: I67.82 Cerebral ischemia (principal)
CPT/HCPCS: 70553; A9575